=== PATIENT | male | born 1940 | race Caucasian/White ===

== ENCOUNTER → 2016-09-24 | Outpatient (CLI) | payer MEDICARE, OTHER ==
[~2016-09-24] MED LIST: ACET1CAP18 PO; ALLO100T PO; ATOR40TA16 PO; AZIT250T3 PO; CALTTAB PO; CEFT500T3 PO; CLOP75TA PO; DIGO0.127 PO; FLUT1INH INH; FURO1TAB60 PO; FURO40TA PO; GABA300C5 PO; GNP3TAB; IPRASOL INH; LOPE2CAP PO; METO10TA PO; METOPOW; MIRTA15 PO; MULT1CHW70; NOVOINJ3 SQ; OMEP20TA PO; POLYPOW5; POTA-163 PO; PRED10 PO; SKIN1CRE2; SPIRCAP INH; TAMS0.4C4 PO; ZINC20OI
--- NOTE | 2016-09-24 14:05 | RADRPT ---
EXAM DATE/TIME: 09/24/2016 00:00 [facility] COMPARISON: No previous studies available for comparison. INDICATIONS : Dysphagia FLUORO TIME: 1.3 minutes IMAGE COUNT: 0 CONTRAST: Dose as prescribed by speech pathologist. MEDICAL HISTORY : Stroke. Dysphagia SURGICAL HISTORY : None. ENCOUNTER: Subsequent ACUITY: 1 day PAIN SCORE: Non-responsive. LOCATION: Bilateral esophagus FINDINGS: A modified barium swallow was performed with speech pathology. Patient was given a variety of liquids to swallow. For a full detailed report, see report by the speech pathologist. CONCLUSION: Image guidance provided for modified barium swallow. Contreras Oliveros MD on September 24, 2016 at 13:39 Board Certified Radiologist. This report was verified electronically.
== END ==
LOC: HRAD 09:26
PROVIDERS: ATTEND Family Medicine
DX: R13.12 Dysphagia, oropharyngeal phase (principal)
CPT/HCPCS: 74230; 92611; G8996; G8997; G8998

== ENCOUNTER 2016-11-08 20:14 | Inpatient (IN) | payer MEDICARE, OTHER ==
[~2016-11-08] VITALS: Ht 182.9 cm; Wt 105.8 kg
[2016-11-08 20:25] VITALS: BP 141/65; PULSE 66; RESP 18; TEMP 98.5; O2SAT 94
[2016-11-08] MEDS ORDERED: methylPREDNISolone SOD SUCC 125 MG/2 ML VIAL IVP ONE (21:00)
[2016-11-08] MEDS ORDERED: SODIUM CHLORIDE 0.9% FLUSH 10 ML FLUSH IVF PRN (21:00)
--- NOTE | 2016-11-08 21:01 | PD ---
HPI Chief Complaint: Cold / Flu Symptoms Time Seen by Provider: 20:57 (Maria De Jesus Vaz) Time Seen by Provider: 20:44 (Janki Dunn MD) Travel History International Travel<30 days: No Contact w/Intl Traveler<30days: No Traveled to known affect area: No (Maria De Jesus Vaz) History of Present Illness HPI 76-year-old male presents to the emergency department from [facility] for evaluation of cold symptoms. The patient states he has had a symptoms for proximally one to 2 weeks. He reports increasing shortness of breath, wheezing , stuffy nose, congestion. He denies any chest pain. No abdominal pain. No nausea, vomiting, diarrhea. He denies fevers. Patient has a history of COPD, CHF, dysphagia, BPH, urosepsis, UTI, altered mental status, gout, hypertension, iron deficiency anemia, type 2 diabetes, chronic kidney disease, chronic atrial fibrillation. His primary care physician is Dr. Isac Lima. (Maria De Jesus Vaz) [facility] Past Medical History Cardiovascular Problems: Yes (Maria De Jesus Vaz) Social History Alcohol Use: No Tobacco Use: No Substance Use: No (Maria De Jesus Vaz) Allergies-Medications (Allergen,Severity, Reaction): Coded Allergies: No Known Allergies (Unverified , 11/08/16) Reported Meds & Prescriptions Reported Meds & Active Scripts Active Reported Zinc Oxide (Zinc Oxide (Topical)) 20 % Oin Tylenol (Acetaminophen) 325 Mg Cap 650 Mg PO Q6H PRN Tamsulosin (Tamsulosin HCl) 0.4 Mg Cap 0.4 Mg PO HS Spiriva Handihaler (Tiotropium Inh) 18 Mcg Cap 18 Mcg INH DAILY 1 capsule = 18 mcg Potassium Chloride ER (Potassium Chloride) 20 Meq Tab 20 Meq PO DAILY Polyethylene Glycol 3350 (Polyethylene Glycol 3350 (Bulk) 1 Pow Pow Omeprazole 20 Mg Tab 20 Mg PO DAILY Novolog Flexpen Inj (Insulin Aspart) 300 Unit/3 Ml Pen 1 Units SQ Multivitamin Adult (Multiple Vitamins W/ Minerals) 1 Chw Chw Mirtazapine 15 Mg Tab 15 Mg PO HS Metoclopramide (Metoclopramide HCl) 10 Mg Tab 10 Mg PO DAILY Metoclopramide HCl 1 Pow Pow Gnp Melatonin (Melatonin) 3 Mg Tab Loperamide (Loperamide HCl) 2 Mg Cap 2 Mg PO TID PRN One capsule after each loose stool. Not to exceed 8 capsules per day. Lasix (Furosemide) 40 Mg Tab 40 Mg PO BID Duoneb (Ipratropium-Albuterol Neb) 0.5-2.5 Mg/3 Ml Neb 1 Nebule INH Q4HR NEB Gabapentin 300 Mg Cap 300 Mg PO BID Eucerin (Skin Protectants, Misc.) 1 Cre Cre Digox (Digoxin) 0.125 Mg Tab 0.125 Mg PO DAILY Clopidogrel (Clopidogrel Bisulfate) 75 Mg Tab 75 Mg PO DAILY Caltrate 600+D (Calcium Carbonate-Cholecalciferol) 600-800 Mg-Unit Tab 1 Tab PO BID Breo Ellipta Inh (Fluticasone/Vilanterol) 100-25 Mcg/Act Inh 1 Puff INH DAILY Use daily at the same time. Atorvastatin (Atorvastatin Calcium) 40 Mg Tab 40 Mg PO HS Allopurinol 100 Mg Tab 100 Mg PO DAILY (Janki Dunn MD) Review of Systems Except as stated in HPI: all other systems reviewed are Neg (Maria De Jesus Vaz) Physical Exam Narrative GENERAL: Well-nourished, well-developed male patient, afebrile. SKIN: Focused skin assessment warm/dry. HEAD: Normocephalic. Atraumatic. EYES: No scleral icterus. No injection or drainage. NECK: Supple, trachea midline. No JVD or lymphadenopathy. CARDIOVASCULAR: Regular rate and rhythm without murmurs, gallops, or rubs. Bilateral radial and pedal pulses 2+. RESPIRATORY: Breath sounds equal bilaterally. No accessory muscle use. Lungs sounds diminished extra wheezes noted throughout. GASTROINTESTINAL: Abdomen soft, non-tender, nondistended. MUSCULOSKELETAL: No cyanosis, or edema. BACK: Nontender without obvious deformity. No CVA tenderness. r (Maria De Jesus Vaz) Data Data Last Documented VS Vital Signs Date Time Temp Pulse Resp B/P Pulse Ox O2 Delivery O2 Flow Rate FiO2 11/08/16 20:25 98.5 66 18 141/65 94 (Janki Dunn MD) Orders Complete Blood Count With Diff (11/08/16 20:55) Basic Metabolic Panel (Bmp) (11/08/16 20:55) B-Type Natriuretic Peptide (11/08/16 20:55) Act Partial Throm Time (Ptt) (11/08/16 20:55) Prothrombin Time / Inr (Pt) (11/08/16 20:55) Magnesium (Mg) (11/08/16 20:55) Ckmb (Isoenzyme) Profile (11/08/16 20:55) Troponin I (11/08/16 20:55) Urinalysis - C+S If Indicated (11/08/16 20:55) Blood Culture (11/08/16 20:55) Iv Access Insert/Monitor (11/08/16 20:55) Electrocardiogram (11/08/16 20:55) Ecg Monitoring (11/08/16 20:55) Oximetry (11/08/16 20:55) Oxygen Administration (11/08/16 20:55) Sodium Chloride 0.9% Flush (Ns Flush) (11/08/16 21:00) Methylprednisolone So Succ Inj (Solumedr (11/08/16 21:00) Albuterol-Ipratropium Neb (Duoneb Neb) (11/08/16 21:00) Lactic Acid Sepsis Protocol (11/08/16 20:55) Chest, Single Ap (11/08/16 ) Sodium Chlorid 0.9% 500 Ml Inj (Ns 500 M (11/08/16 22:15) Insulin Human Regular Inj (Novolin R Inj (11/08/16 22:15) Dextrose 50% In Sorin (Vial) Inj (D50w (Vi (11/08/16 22:15) Sodium Polysty Sulfate Liq (Kayexalate L (11/08/16 22:15) Calcium Gluconate Inj (Calcium Gluconate (11/08/16 22:15) Admit Order (Ed Use Only) (11/08/16 22:10) (Janki Dunn MD) Labs Laboratory Tests Test 11/08/16 11/08/16 21:00 22:00 White Blood Count 9.0 TH/MM3 Red Blood Count 3.07 MIL/MM3 Hemoglobin 8.6 GM/DL Hematocrit 27.0 % Mean Corpuscular Volume 87.9 FL Mean Corpuscular Hemoglobin 28.0 PG Mean Corpuscular Hemoglobin 31.8 % Concent Red Cell Distribution Width 16.0 % Platelet Count 256 TH/MM3 Mean Platelet Volume 6.3 FL Neutrophils (%) (Auto) 71.3 % Lymphocytes (%) (Auto) 12.1 % Monocytes (%) (Auto) 7.9 % Eosinophils (%) (Auto) 8.0 % Basophils (%) (Auto) 0.7 % Neutrophils # (Auto) 6.4 TH/MM3 Lymphocytes # (Auto) 1.1 TH/MM3 Monocytes # (Auto) 0.7 TH/MM3 Eosinophils # (Auto) 0.7 TH/MM3 Basophils # (Auto) 0.1 TH/MM3 CBC Comment DIFF FINAL Differential Comment Prothrombin Time 11.9 SEC Prothromb Time International 1.1 RATIO Ratio Activated Partial 32.4 SEC Thromboplast Time Sodium Level 140 MEQ/L Potassium Level 6.1 MEQ/L Chloride Level 108 MEQ/L Carbon Dioxide Level 27.2 MEQ/L Anion Gap 5 MEQ/L Blood Urea Nitrogen 71 MG/DL Creatinine 4.84 MG/DL Estimat Glomerular Filtration 12 ML/MIN Rate Random Glucose 78 MG/DL Lactic Acid Level 0.8 mmol/L Calcium Level 9.0 MG/DL Magnesium Level 2.2 MG/DL Total Creatine Kinase 69 U/L Troponin I 0.05 NG/ML B-Type Natriuretic Peptide 1023 PG/ML Urine Color LIGHT-YELLOW Urine Turbidity HAZY Urine pH 7.0 Urine Specific [place] 1.013 Urine Protein 100 mg/dL Urine Glucose (UA) NEG mg/dL Urine Ketones NEG mg/dL Urine Occult Blood TRACE Urine Nitrite NEG Urine Bilirubin NEG Urine Urobilinogen LESS THAN 2.0 MG/DL Urine Leukocyte Esterase LARGE Urine RBC 3 /hpf Urine WBC 88 /hpf Urine WBC Clumps FEW Urine Squamous Epithelial <1 /hpf Cells Urine Mucus FEW /lpf Microscopic Urinalysis Comment CULTURE INDICATED (Janki Dunn MD) [facility] Medical Decision Making Medical Screen Exam Complete: Yes Emergency Medical Condition: Yes 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 Reviewed: Yes Interpretation(s) chest x-ray - CONCLUSION: Prominence of the central vessels which may represent some pulmonary venous hypertension. Godwin edema or consolidation is not seen. Differential Diagnosis COPD exacerbation versus pneumonia versus CHF exacerbation versus sepsis versus UTI versus election abnormality versus dehydration Narrative Course 76-year-old male presents to the emergency department from nursing facility for evaluation of cold symptoms for one to 2 weeks. EKG, CBC, BMP, BNP, magnesium, CK, troponin, lactic acid are ordered and pending. UA is ordered and pending. Blood cultures 2 are ordered and pending. Chest x-ray is ordered and pending. Patient is given DuoNeb 3 and Solu-Medrol 125 mg IV. EKG shows sinus rhythm, heart rate 69, no acute ST changes. CBC shows hemoglobin 8.6, hematocrit 27.0. BMP shows hyperkalemia 6.1, BUN 71, creatinine 4.84. Magnesium is 2.2. CK is 69. Troponin is 0.05. BNP [-]. PT is 11.9, INR 1.1, PTT 32.4. UA is still pending. Chest x-ray shows prominence of the central vessels which may represent some pulmonary venous hypertension. Godwin edema or consolidation is not seen. I looked at the paperwork sent from the residential, the last creatinine I can find on here was on report for August 2016 showed BUN of 23, creatinine 1.73, potassium 4.6. Patient is given Kayexalate 15 g by mouth, regular insulin 10 units IV, amp of D50, ampicillin and bicarbonate, 1 g of calcium gluconate, normal saline 500 mL bolus. [facility] is paged for admission. Walter Lopez accepted admission. (Maria De Jesus Vaz) Diagnosis Primary Impression: Acute renal failure Qualified Code: N17.9 - Acute renal failure, unspecified acute renal failure type Additional Impressions: COPD exacerbation Hyperkalemia Admitting Information Admitting Physician Requests: Admit (Maria De Jesus Vaz) Maria De Jesus Vaz November 08, 2016 21:01 Janki Dunn MD November 09, 2016 00:25
[2016-11-08] MEDS: RESP: ALBUTEROL 2.5 MG/IPRATROPIUM 0.5 MG NEB (SCH) INH ×2 (21:30→21:31)
[2016-11-08 21:40] LABS: APTT (PATIENT) 32.4 SEC (24.3-30.1); INTERNATIONAL NORMALIZED RATIO 1.1 RATIO; PROTHROMBIN TIME - PATIENT 11.9 SEC (9.8-11.6)
[2016-11-08 21:41] LABS: BICARBONATE 27.2 MEQ/L (21.0-32.0); MAGNESIUM 2.2 MG/DL (1.5-2.5); POTASSIUM 6.1 MEQ/L (3.5-5.1)
[2016-11-08 21:54] LABS: AUTOMATED NEUTROPHIL # 6.4 TH/MM3 (1.8-7.7); BASOPHIL # 0.1 TH/MM3 (0-0.2); BASOPHIL % 0.7 % (0.0-2.0); EOSINOPHIL # 0.7 TH/MM3 (0-0.4); HEMO FLAGS DIFF FINAL; LYMPH % 12.1 % (9.0-44.0); LYMPHOCYTE # 1.1 TH/MM3 (1.0-4.8); MEAN CELL VOLUME 87.9 FL (80.0-100.0); MEAN CORPUSCULAR HGB CONC 31.8 % (32.0-36.0); MONO % 7.9 % (0.0-8.0); NEUT % 71.3 % (16.0-70.0); PLATELET COUNT 256 TH/MM3 (150-450); RED BLOOD COUNT 3.07 MIL/MM3 (4.50-5.90)
--- NOTE | 2016-11-08 22:00 | RADRPT ---
EXAM DATE/TIME: 11/08/2016 21:15 [facility] COMPARISON: No previous studies available for comparison. INDICATIONS : Short of breath. MEDICAL HISTORY : Stroke. SURGICAL HISTORY : None. 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 The heart size is normal. T here some prominence of the central vessels. A focal consolidation is not seen. No effusion is seen. CONCLUSION: Prominence of the central vessels which may represent some pulmonary venous hypertension. Godwin edema or consolidation is not seen. Walter White MD on November 08, 2016 at 21:57 Board Certified Radiologist. This report was verified electronically.
[2016-11-08] MEDS ORDERED: SODIUM POLYSTYRENE SULFONATE SUSP 15 GM/60 ML CUP PO ONE (22:15)
[2016-11-08] MEDS ORDERED: DEXTROSE 50% IN WATER 50 ML VIAL(D50) IV PUSH ONE (22:15)
[2016-11-08] MEDS ORDERED: SODIUM BICARBONATE 8.4% SOLN 50 MEQ/50 ML VIAL SLOW IVP ONE (22:15)
[2016-11-08] MEDS ORDERED: INSULIN HUMAN REGULAR 1,000 UNITS/10 ML VIAL IV PUSH ONE (22:15)
[2016-11-08] MEDS ORDERED: SODIUM CHLORID 0.9% 500 ML INJ 500 ML IV ONE (22:15)
[2016-11-08] MEDS ORDERED: CALCIUM GLUCONATE INJ 1 GM in SODIUM CHLORIDE 0.9% INJ 100 ML IV ONE (22:15)
[2016-11-08 22:34] LABS: BLOOD, URINE TRACE (NEG); COMMENT (UR) CULTURE INDICATED; CULTURE IF INDICATED CULTURE INDICATED; GLUCOSE,URINE NEG (NEG); KETONE, URINE NEG (NEG); MUCUS URINE FEW /lpf (OCC); NITRITE,URINE NEG (NEG); SQUAMOUS EPITHELIAL CELL URINE <1 /hpf (0-5); URINE COLOR LIGHT-YELLOW (YELLW/STRAW)
[2016-11-08 22:44] VITALS: O2SAT 94
[2016-11-08] MEDS ORDERED: SODIUM CHLORIDE 0.9% FLUSH 10 ML FLUSH IV FLUSH PRN (22:45)
[2016-11-08] MEDS ORDERED: NALOXONE HCL 0.4 MG/ML AMP IV PRN (22:45)
[2016-11-08] MEDS ORDERED: ONDANSETRON HCL 4 MG/2 ML VIAL IVP PRN (22:45)
[2016-11-08] MEDS ORDERED: ACETAMINOPHEN 325 MG TAB PO PRN (22:45)
[2016-11-08] MEDS ORDERED: RESP: ALBUTEROL 2.5 MG/3 ML NEB (PRN) INH (22:45)
[2016-11-08] MEDS ORDERED: SODIUM CHLOR 0.9% 1000 ML INJ 1,000 ML IV SCH (23:00)
[2016-11-08] MEDS ORDERED: SODIUM BICARBONATE 8.4% INJ 50 MEQ/50 ML SYR IV PUSH ONE (23:45)
[2016-11-08] MEDS ORDERED: MIRTA15 PO (23:57)
[2016-11-08] MEDS ORDERED: MULT1CHW70 (23:57)
[2016-11-08] MEDS ORDERED: CALTTAB PO (23:57)
[2016-11-08] MEDS ORDERED: CLOP75TA PO (23:57)
[2016-11-08] MEDS ORDERED: METO10TA PO (23:57)
[2016-11-08] MEDS ORDERED: OMEP20TA PO (23:57)
[2016-11-08] MEDS ORDERED: ACET1CAP18 PO (23:57)
[2016-11-08] MEDS ORDERED: IPRASOL INH (23:57)
[2016-11-08] MEDS ORDERED: DIGO0.127 PO (23:57)
[2016-11-08] MEDS ORDERED: LOPE2CAP PO (23:57)
[2016-11-08] MEDS ORDERED: METOPOW (23:57)
[2016-11-08] MEDS ORDERED: GABA300C5 PO (23:57)
[2016-11-08] MEDS ORDERED: SKIN1CRE2 (23:57)
[2016-11-08] MEDS ORDERED: SPIRCAP INH (23:57)
[2016-11-08] MEDS ORDERED: ALLO100T PO (23:57)
[2016-11-08] MEDS ORDERED: POTA-163 PO (23:57)
[2016-11-08] MEDS ORDERED: ZINC20OI (23:57)
[2016-11-08] MEDS ORDERED: POLYPOW5 (23:57)
[2016-11-08] MEDS ORDERED: FLUT1INH INH (23:57)
[2016-11-08] MEDS ORDERED: ATOR40TA16 PO (23:57)
[2016-11-08] MEDS ORDERED: NOVOINJ3 SQ (23:57)
[2016-11-08] MEDS ORDERED: FURO1TAB60 PO (23:57)
[2016-11-08] MEDS ORDERED: GNP3TAB (23:57)
[2016-11-08] MEDS ORDERED: TAMS0.4C4 PO (23:57)
[2016-11-09] VITALS (19 sets, daily range): BP systolic 74–185; BP diastolic 50–74; PULSE 59–103; RESP 15–26; TEMP 97.5–98.5; O2SAT 90–99
[2016-11-09 01:06] LABS: BICARBONATE 25.1 MEQ/L (21.0-32.0)
[2016-11-09] MEDS ORDERED: DEXTROSE 50% IN WATER 50 ML SYRINGE ONE (01:11)
[2016-11-09] MEDS: DEXT 5%-NACL 0.9% 1000 ML INJ 1,000 ML IV SCH ×2 (02:10→22:13)
[2016-11-09] MEDS: HEPARIN SODIUM - SQ 10,000 UNITS/ML VIAL SQ SCH ×3 (02:45→21:43)
[2016-11-09] MEDS: methylPREDNISolone SOD SUCC 125 MG/2 ML VIAL IVP SCH ×4 (02:49→21:43)
[2016-11-09] MEDS: RESP: ALBUTEROL 2.5 MG/IPRATROPIUM 0.5 MG NEB (SCH) INH ×4 (05:27→21:34)
[2016-11-09 06:49] LABS: BLOOD GAS CARBOXYHEMOGLOBIN 1.4 % (0-4); BLOOD GAS HCO3 24 mmol/L (22-26); BLOOD GAS METHEMOGLOBIN 0.8 % (0-2); BLOOD GAS O2 HGB SATURATION 91 % (90-100); BLOOD GAS OXYGEN CONTENT 10.5 Vol % (12.0-20.0); BLOOD GAS PCO2 53 mmHg (38-42); BLOOD GAS PO2 68 mmHg (61-120); BLOOD GAS TOTAL HGB 8.2 G/DL (12.0-16.0); TEMP CORR TO 98.6
[2016-11-09 06:53] LABS: CRITICAL VALUE YES; DRAW SITE RT RADIAL; LITER FLOW 2 L/M; NUMBER OF ARTERIAL PUNCTURES 1; OXYGEN DEVICE NASAL CANNULA; STAT YES; ULNAR PULSE PRESENT
--- NOTE | 2016-11-09 07:13 | RADRPT ---
EXAM DATE/TIME: 11/09/2016 06:48 [facility] COMPARISON: No previous studies available for comparison. INDICATIONS : Altered mental status. RADIATION DOSE: 56.35 CTDIvol (mGy) MEDICAL HISTORY : Hypertension. Diabetes mellitus type 2. SURGICAL HISTORY : None. ENCOUNTER: Initial ACUITY: 1 day PAIN SCALE: 0/10 LOCATION: cranial TECHNIQUE: Multiple contiguous axial images were obtained of the head. Using automated exposure control and adj ustment of the mA and/or kV according to patient size, radiation dose was kept as low as reasonably a chievable to obtain optimal diagnostic quality images. FINDINGS: CEREBRUM: The ventricles are normal for age. No evidence of midline shift, mass lesion, hemorrhage or acute in farction. No extra-axial fluid collections are seen. POSTERIOR FOSSA: The cerebellum and brainstem are intact. The 4th ventricle is midline. The cerebellopontine angle i s unremarkable. EXTRACRANIAL: The visualized portion of the orbits is intact. SKULL: The calvaria is intact. No evidence of skull fracture. CONCLUSION: 1. No acute findings. Mucosal thickening in the maxillary sinuses. Isidro Landeros MD on November 09, 2016 at 7:10 Board Certified Radiologist. This report was verified electronically.
[2016-11-09 08:34] LABS: AUTOMATED NEUTROPHIL # 6.3 TH/MM3 (1.8-7.7); BASOPHIL % 0.4 % (0.0-2.0); EOSINOPHIL % 0.2 % (0.0-4.0); HEMATOCRIT 26.8 % (39.0-51.0); HEMO FLAGS DIFF FINAL; LYMPH % 4.7 % (9.0-44.0); LYMPHOCYTE # 0.3 TH/MM3 (1.0-4.8); MEAN CELL VOLUME 87.7 FL (80.0-100.0); MEAN CORPUSCULAR HEMOGLOBIN 27.1 PG (27.0-34.0); MEAN CORPUSCULAR HGB CONC 30.9 % (32.0-36.0); MONO % 0.7 % (0.0-8.0); PLATELET COUNT 219 TH/MM3 (150-450); RED BLOOD COUNT 3.05 MIL/MM3 (4.50-5.90); RED CELL DISTRIBUTION WIDTH 16.1 % (11.6-17.2); WHITE BLOOD COUNT 6.7 TH/MM3 (4.0-11.0)
[2016-11-09 08:35] LABS: RETIC % 2.1 % (0.4-3.0); REVIEW FLAG FINAL
[2016-11-09] MEDS: cefTRIAXone 1,000 MG/NS 100 ML IV SCH ×2 (09:11)
[2016-11-09] MEDS: SODIUM CHLORIDE 0.9% FLUSH 10 ML FLUSH IV FLUSH SCH ×2 (09:12→21:00)
--- NOTE | 2016-11-09 09:12 | HHI.HP ---
[facility] No Primary Care Physician Admission Diagnosis ARF, COPD exacerbation Diagnoses: Chief Complaint: sob, sent from [place] (Lelia Jiménez) Travel History International Travel<30 Days: No Contact w/Intl Traveler <30 Da: No Traveled to Known Affected Are: No (Lelia Jiménez) History of Present Illness This is a 76-year-old elderly male male with significant past medical history of CAD, CHF, COPD, chronic kidney disease stage III, GI bleed, status post cardiac arrest in 2016, stent March 2016, diabetes, pacemaker. Patient was sent to the emergency room from local residential for evaluation of cold symptoms. Per review of emergency room records, patient had complained of approximately 2 weeks of shortness of breath, wheezing, stuffy nose and congestion. At this time, patient is short of breath and is difficult to obtain detailed information. Patient was last admitted to [facility] for sepsis secondary to UTI. Prior to that, patient had an extensive hospitalization at same facility where he had a cardiac arrest requiring intubation. He also went into acute renal injury and was evaluated by nephrology. Was also found with GI bleed and required upper endoscopies and colonoscopy with findings of polyps and rectal ulcers.Prior to that, he was admitted for chest pain and was found with the blockage to the RCA and underwent stent. Patient was evaluated in the emergency room, laboratory workup was completed. CBC was remarkable for hemoglobin of 8.6, hematocrit of 27 which appears to be his baseline. BMP was noted with worsening renal dysfunction, BUN 71, creatinine 4.84 and GFR of 12. He was noted hyperkalemic with potassium of 6.1. Urinalysis was positive for leukocyte esterase and bacteria. Chest x-ray shows prominence of central vessels which may represent some pulmonary venous hypertension, rk edema or consolidation was not seen. In the emergency room, patient received 500 cc fluid bolus. Hyperkalemia was treated with Kayexalate regular insulin D50 and bicarbonate. Empiric antibiotics were started. Overnight, blood glucose dropped to 37 and patient was put on dextrose solution. CT of the head completed was negative. ABGs were completed, pH 7.28 with PCO2 of 53. Patient is now examined, he's noted to With bibasilar Rales and expiratory wheezes. He's having difficulty completing sentences. I have called the respiratory therapist in order BiPAP placement and transfer to ICU. Lasix 20 mg IV push has been ordered. Patient knows is in the hospital he knows the year have discuss plan of care and spoke to him about the possibility of requiring intubation and he is agreeable. Nurse was at bedside to witness conversation. Per review of medical records, patient was living by himself prior to hospitalizations, he has no friends and is estranged from his family. States that he has not spoken to his children in 18 years and has no POA. I reviewed medical records from residential facility and there is no advanced directives. Patient is admitted for further evaluation and treatment. (Lelia Jiménez) Review of Systems ROS Limitations: Clinical Condition Respiratory: COMPLAINS OF: Cough, Wheezing, Sputum production Cardiovascular: COMPLAINS OF: Dyspnea on Exertion (Lelia Jiménez) Past Family Social History Past Medical History Coronary artery disease, stent to RCA 90 03/27/16 at [facility] [place] Recent cardiac arrest, sepsis, possible seizures, GI bleed, acute on chronic renal injury, hematuria\ Urosepsis, recurrent UTI GI bleed CK D stage III Gout Anemia COPD CHF Obesity Hypertension Hyperlipidemia Diabetes Past Surgical History Toe amputation Arthroscopy Cataract surgery Feeding tube insertion Esophageal surgery Cardiac catheter with stent to RCA 90 03/27/16 Cystoscopy 07/11/2016 Upper and lower endoscopy with findings of polyps and rectal ulcer Reported Medications Reported Meds & Active Scripts Active Reported Zinc Oxide (Zinc Oxide (Topical)) 20 % Oin Tylenol (Acetaminophen) 325 Mg Cap 650 Mg PO Q6H PRN Tamsulosin (Tamsulosin HCl) 0.4 Mg Cap 0.4 Mg PO HS Spiriva [place] (Tiotropium Inh) 18 Mcg Cap 18 Mcg INH DAILY 1 capsule = 18 mcg Potassium Chloride ER (Potassium Chloride) 20 Meq Tab 20 Meq PO DAILY Polyethylene Glycol 3350 (Polyethylene Glycol 3350 (Bulk) 1 Pow Pow Omeprazole 20 Mg Tab 20 Mg PO DAILY Novolog Flexpen Inj (Insulin Aspart) 300 Unit/3 Ml Pen 1 Units SQ Multivitamin Adult (Multiple Vitamins W/ Minerals) 1 Chw Chw Mirtazapine 15 Mg Tab 15 Mg PO HS Metoclopramide (Metoclopramide HCl) 10 Mg Tab 10 Mg PO DAILY Metoclopramide HCl 1 Pow Pow Gnp Melatonin (Melatonin) 3 Mg Tab Loperamide (Loperamide HCl) 2 Mg Cap 2 Mg PO TID PRN One capsule after each loose stool. Not to exceed 8 capsules per day. Lasix (Furosemide) 40 Mg Tab 40 Mg PO BID Duoneb (Ipratropium-Albuterol Neb) 0.5-2.5 Mg/3 Ml Neb 1 Nebule INH Q4HR NEB Gabapentin 300 Mg Cap 300 Mg PO BID Eucerin (Skin Protectants, Misc.) 1 Cre Cre Digox (Digoxin) 0.125 Mg Tab 0.125 Mg PO DAILY Clopidogrel (Clopidogrel Bisulfate) 75 Mg Tab 75 Mg PO DAILY Caltrate 600+D (Calcium Carbonate-Cholecalciferol) 600-800 Mg-Unit Tab 1 Tab PO BID Breo Ellipta Inh (Fluticasone/Vilanterol) 100-25 Mcg/Act Inh 1 Puff INH DAILY Use daily at the same time. Atorvastatin (Atorvastatin Calcium) 40 Mg Tab 40 Mg PO HS Allopurinol 100 Mg Tab 100 Mg PO DAILY (eLlia Jiménez) Allergies: Coded Allergies: Avelox (Verified Allergy, Unknown, 11/09/16) Flu Vaccine (Verified Allergy, Unknown, 11/09/16) Keflex (Verified Allergy, Unknown, 11/09/16) Levaquin (Verified Allergy, Unknown, 11/09/16) Active Ordered Medications Inpatient Medications Acetaminophen (Tylenol) 650 mg Q4H PRN PO TEMP > 100.4; Start 11/08/16 at 22:45 Albuterol Sulfate (Albuterol Neb) 2.5 mg Q2HR NEB PRN INH SHORTNESS OF BREATH; Start 11/08/16 at 22:45 Albuterol/ Ipratropium (Duoneb Neb) 1 ampule Q6HR NEB INH Last administered on 11/09/16 05:27; Start 11/09/16 at 04:00 Albuterol/ Ipratropium 1 ampule 1 ampule Q15M INH Last administered on 21:31; Start 11/08/16 at 21:00; Stop 11/08/16 at 21:31; Status DC Allopurinol (Zyloprim) 100 mg DAILY PO ; Start 11/10/16 at 09:00; Status UNV Calcium Gluconate 1 gm/Sodium Chloride 110 ml @ 110 mls/hr ONCE ONCE IV Last administered on 11/08/16 23:27; Start 11/08/16 at 22:15; Stop 11/08/16 at 23:14; Status DC Ceftriaxone Sodium/Sodium Chloride (Rocephin Inj/NS Inj) 100 ml @ 200 mls/hr Q24H IV Last administered on 11/09/16 09:11; Start 11/09/16 at 08:00 Clopidogrel Bisulfate (Plavix) 75 mg DAILY PO ; Start 11/10/16 at 09:00; Status UNV Dextrose (D50w (Vial) Inj) 50 ml ONCE ONCE IV PUSH Last administered on 23:24; Start 11/08/16 at 22:15; Stop 11/08/16 at 22:16; Status DC Dextrose/Sodium Chloride 1,000 ml @ 40 mls/hr Q24H IV Last administered on 11/09 02:10; Start 11/09/16 at 03:00 Fluticasone/ Vilanterol (Breo Ellipta 100-25 Inh) 1 puff DAILY INH ; Start at 09:45; Status UNV Furosemide (Lasix Inj) 20 mg ONCE ONCE IV PUSH Last administered on 11/09/16 09:29; Start 11/09/16 at 09:30; Stop 11/09/16 at 09:31; Status DC Heparin Sodium (Porcine) (Heparin Inj) 5,000 units Q12H SQ Last administered on 11/09/16 02:45; Start 11/08/16 at 23:00 Insulin Human Regular (NovoLIN R INJ) 10 units ONCE ONCE IV PUSH Last administered on 11/08/16 23:29; Start 11/08/16 at 22:15; Stop 11/08/16 at 22:16; Status DC Methylprednisolone Sodium Succinate (SoluMEDROL INJ) 60 mg Q6H IVP Last administered on 11/09/16 09:12; Start 11/09/16 at 04:00 Mirtazapine (Remeron) 15 mg HS PO ; Start 11/09/16 at 21:00; Status UNV Naloxone HCl (Narcan Inj) 0.4 mg UNSCH PRN IV SEE LABEL COMMENTS; Start at 22:45 Non-Formulary Medication 20 mg DAILY PO ; Start 11/10/16 at 09:00; Status UNV Ondansetron HCl (Zofran Inj) 4 mg Q6H PRN IVP NAUSEA OR VOMITING; Start at 22:45 Sodium Bicarbonate 50 meq 50 meq ONCE ONCE IV PUSH Last administered on 00:04; Start 11/08/16 at 23:45; Stop 11/08/16 at 23:49; Status DC Sodium Polystyrene Sulfonate 15 gm 15 gm ONCE ONCE PO ; Start 11/08/16 at 22:15 ; Stop 11/08/16 at 22:16; Status DC Sodium Chloride (NS 1000 ml Inj) 1,000 ml @ 100 mls/hr Q10H IV Last administered on 11/09/16 00:10; Start 11/08/16 at 23:00; Stop 11/09/16 at 02:21; Status DC Sodium Chloride (NS 500 ml Inj) 500 ml @ 500 mls/hr BOLUS ONCE IV Last administered on 11/08/16 23:31; Start 11/08/16 at 22:15; Stop 11/08/16 at 23:14; Status DC Sodium Chloride (NS Flush) 2 ml BID IV FLUSH Last administered on 11/09/16 09: 12; Start 11/09/16 at 09:00 Tamsulosin HCl (Flomax) 0.4 mg HS PO ; Start 11/09/16 at 21:00; Status UNV Tiotropium [place] (Spiriva Inh) 18 mcg DAILY INH ; Start 11/10/16 at 09:00; Status UNV Family History Per medical records,father from CVA. Mother with hx of DM Social History Patient is , was living alone. Has 3 grown children, has no contact with them. Quit smoking many years ago, no alcohol abuse, no substance abuse. ( Lelia Jiménez) Physical Exam Vital Signs Vital Signs Date Time Temp Pulse Resp B/P Pulse Ox O2 Delivery O2 Flow Rate FiO2 11/09/16 08:00 97.5 74 18 122/57 93 11/09/16 05:27 93 Nasal Cannula 2.00 11/09/16 04:52 97.7 86 20 160/70 93 11/09/16 02:12 68 20 148/63 95 11/09/16 01:21 82 11/09/16 01:20 103 142/65 11/09/16 01:00 98.3 75 20 165/72 96 11/09/16 00:52 95 Nasal Cannula 2 11/09/16 00:45 78 22 148/65 90 Room Air 11/08/16 22:44 94 11/08/16 20:25 98.5 66 18 141/65 94 Physical Exam GENERAL: This is a male, appears in SKIN: Skin is cool and dry, scratches are noted to lower extremities. HEAD: Atraumatic. Normocephalic. No temporal or scalp tenderness. EYES: Pupils equal round and reactive. Extraocular motions intact. No scleral icterus. No injection or drainage. ENT: Nose without bleeding, purulent drainage or septal hematoma. Throat without erythema, tonsillar hypertrophy or exudate. Uvula midline. Airway patent. NECK: Trachea midline. No JVD or lymphadenopathy. Supple, nontender, no meningeal signs. CARDIOVASCULAR: S1 and S2, muffled heart sounds, soft murmur noted. RESPIRATORY: Bibasilar Rales with expiratory wheezes. GASTROINTESTINAL: Abdomen soft, non-tender, nondistended. Scar from previous abdominal surgery and PEG tube insertion. No hepato-splenomegaly, or palpable masses. No guarding. MUSCULOSKELETAL: Extremities without clubbing, cyanosis, or edema. Pedal pulses +1 bilaterally. No joint tenderness, effusion, or edema noted. No calf tenderness. Negative Homans sign bilaterally. NEUROLOGICAL: Awake, oriented to self, knows he is in a hospital, able to provide year, name, and date of . Following simple commands. No focal deficits. Patient is edentulous, at times difficult to understand but otherwise he is appropriate. Laboratory Laboratory Tests Test 11/08/16 11/08/16 11/09/16 11/09/16 21:00 22:00 00:35 06:43 White Blood Count 9.0 Red Blood Count 3.07 Hemoglobin 8.6 Hematocrit 27.0 Mean Corpuscular Volume 87.9 Mean Corpuscular Hemoglobin 28.0 Mean Corpuscular Hemoglobin 31.8 Concent Red Cell Distribution Width 16.0 Platelet Count 256 Mean Platelet Volume 6.3 Neutrophils (%) (Auto) 71.3 Lymphocytes (%) (Auto) 12.1 Monocytes (%) (Auto) 7.9 Eosinophils (%) (Auto) 8.0 Basophils (%) (Auto) 0.7 Neutrophils # (Auto) 6.4 Lymphocytes # (Auto) 1.1 Monocytes # (Auto) 0.7 Eosinophils # (Auto) 0.7 Basophils # (Auto) 0.1 CBC Comment DIFF FINAL Differential Comment Prothrombin Time 11.9 Prothromb Time International 1.1 Ratio Activated Partial 32.4 Thromboplast Time Sodium Level 140 145 Potassium Level 6.1 5.0 Chloride Level 108 112 Carbon Dioxide Level 27.2 25.1 Anion Gap 5 8 Blood Urea Nitrogen 71 66 Creatinine 4.84 4.32 Estimat Glomerular Filtration 12 13 Rate Random Glucose 78 37 Lactic Acid Level 0.8 Calcium Level 9.0 8.6 Magnesium Level 2.2 Total Creatine Kinase 69 Troponin I 0.05 B-Type Natriuretic Peptide 1023 Urine Color LIGHT-YELLOW Urine Turbidity HAZY Urine pH 7.0 Urine Specific [place] 1.013 Urine Protein 100 Urine Glucose (UA) NEG Urine Ketones NEG Urine Occult Blood TRACE Urine Nitrite NEG Urine Bilirubin NEG Urine Urobilinogen LESS THAN 2.0 Urine Leukocyte Esterase LARGE Urine RBC 3 Urine WBC 88 Urine WBC Clumps FEW Urine Squamous Epithelial <1 Cells Urine Mucus FEW Microscopic Urinalysis Comment CULTURE INDICATED Blood Gas Puncture Site RT RADIAL Blood Gas Patient Temperature 98.6 Blood Gas HCO3 24 Blood Gas Base Excess -2.0 Blood Gas Oxygen Saturation 91 Arterial Blood pH 7.28 Arterial Blood Partial 53 Pressure CO2 Arterial Blood Partial 68 Pressure O2 Arterial Blood Oxygen Content 10.5 Arterial Blood 1.4 Carboxyhemoglobin Arterial Blood Methemoglobin 0.8 Blood Gas Hemoglobin 8.2 Oxygen Delivery Device NASAL CANNULA Blood Gas Liter Flow 2 Test 11/09/16 11/09/16 07:40 07:51 Reticulocyte Count 2.1 Absolute Reticulocyte Count 63.4 White Blood Count 6.7 Red Blood Count 3.05 Hemoglobin 8.3 Hematocrit 26.8 Mean Corpuscular Volume 87.7 Mean Corpuscular Hemoglobin 27.1 Mean Corpuscular Hemoglobin 30.9 Concent Red Cell Distribution Width 16.1 Platelet Count 219 Mean Platelet Volume 6.2 Neutrophils (%) (Auto) 94.0 Lymphocytes (%) (Auto) 4.7 Monocytes (%) (Auto) 0.7 Eosinophils (%) (Auto) 0.2 Basophils (%) (Auto) 0.4 Neutrophils # (Auto) 6.3 Lymphocytes # (Auto) 0.3 Monocytes # (Auto) 0.0 Eosinophils # (Auto) 0.0 Basophils # (Auto) 0.0 CBC Comment DIFF FINAL Differential Comment Ammonia 24 Date/Time Procedure Status Source Growth 11/08/16 22:00 Urine Culture Received Urine Clean Catch Pending 11/08/16 21:05 Aerobic Blood Culture Received Blood Peripheral Pending 11/08/16 21:05 Anaerobic Blood Culture Received Blood Peripheral Pending (Lelia Jiménez) Result Diagram: 11/09/16 0751 11/09/16 0035 Imaging Last Impressions Head CT 11/09/16 0000 Signed Impressions: Service Date/Time: Wednesday, November 09, 2016 06:48 - CONCLUSION: 1. No acute findings. Mucosal thickening in the maxillary sinuses. Isidro Landeros MD Chest X-Ray 11/08/16 0000 Signed Impressions: Service Date/Time: November 21:15 - CONCLUSION: Prominence of the central vessels which may represent some pulmonary venous hypertension. Rk edema or consolidation is not seen. 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 Barba 76-year-old male with multiple comorbidities including CAD, recent stent March 2016, chronic kidney disease, COPD, CHF, recurrent UTI. Presented to the emergency room with complaint of shortness of breath. Patient found hypoxic , likely combination of COPD exacerbation, CHF and also worsening renal function. Respiratory failure, hypoxic, hypercarbic COPD exacerbation -Transfer patient to ICU Consult pulmonology for evaluation We'll order BiPAP, 5/10 with 40% FiO2 Continue IV Solu-Medrol 60 mg IV every 6 Continue with DuoNeb's Acute congestive heart failure, last echocardiogram March 2016, EF 55-60%. During assessment, patient noted with murmur, possibly new Lasix 20 mg IV push 1 At this time hold off on schedule Lasix due to renal dysfunction 2-D echo has been ordered -We will have nursing insert Yang catheter and monitor intake and output closely Acute on chronic kidney disease, noted worsening renal function and hyperkalemia. Consult nephrology for evaluation Avoid nephrotoxic agents, hold diuretics at this time -Yang catheter for strict intake and output Recurrent UTI, prior admissions with urosepsis Continue with Rocephin, monitor cultures Altered mental status, likely multifactorial, found hypercarbic, hypoxic, possibly metabolic CT of the head completed negative Neurology has been consulted, uro-workup in progress EEG has been ordered Coronary artery disease, status post stent to RCA March 2016 Prior history of ablation Cardiac arrest 2016 Pacemaker insertion 2015 Continue with Plavix Patient not on any beta blockers, will hold off for now due to wheezing Anemia, history of GI bleed with GI workup, possibly secondary to chronic kidney disease. Patient appears to be at baseline Monitor H&H No active bleeding noted Type 2 diabetes, recent episode of hypoglycemia Continue with Accu-Cheks every 4 Patient was put on dextrose solution, we'll hold off at this time as patient is noted and fluid overload. Blood sugars are now trending upwards to 150. Hypertension Continue home medications Hyperlipidemia Continue home medications Home medications reviewed, some have been initiated SCDs and heparin for DVT prophylaxis PPI for GI prophylaxis Patient's condition guarded. At this time he requires transfer to intensive care unit for closer monitoring, BiPAP, if no improvement may require intubation. Advanced directives and end-of-life care issues have been discussed with the patient. At this time he requests full code. Patient has no family members and limited social support. Patient will benefit from palliative care consultation to assist with defining goals, identifying POA if possible. Plan care has been discussed with the patient, attending and registered nurse. Further management of the patient will be dependent on the hospital course Patient requires inpatient admission for anticipated stay greater than 2 days for respiratory failure, recurrent UTI, CHF, COPD exacerbation, acute on chronic renal injury. Patient is at risk for complications due to advanced age and multiple comorbidities that can potentially lead to multiorgan failure, possibly . Patient requires admission for IV antibiotics, evaluation by consultants, BiPAP, possible intubation. Anticipated discharge back to residential facility when stable This patient was seen by myself and Dr. Barba, this H&P is written on his behalf (Lelia Jiménez) Assessment and Plan pt is seen & examined d/w Lelia mcelroy w above see orders will f/u (Molly Barba MD) Physician Certification 2 Midnight Certification Type: Admission for Inpatient Services Order for Inpatient Services The services are ordered in accordance with Medicare regulations or non- Medicare payer requirements, as applicable. In the case of services not specified as inpatient-only, they are appropriately provided as inpatient services in accordance with the 2-midnight benchmark. Estimated LOS (days): 2 2 days is the estimated time the patient will need to remain in the hospital, assuming treatment plan goals are met and no additional complications. Post-Hospital Plan: SNF (Lelia Jiménez) Problem Qualifiers (1) Respiratory failure: Qualified Code: J96.02 - Acute respiratory failure with hypercapnia (2) CHF (congestive heart failure): Qualified Code: I50.9 - Acute on chronic congestive heart failure, unspecified congestive heart failure type (3) Anemia: Qualified Code: D64.9 - Anemia, unspecified type (4) Hyperlipidemia: Qualified Code: E78.5 - Hyperlipidemia, unspecified hyperlipidemia type (5) CAD (coronary artery disease): Qualified Code: I25.118 - Coronary artery disease involving [place] coronary artery of [place] heart with other form of angina pectoris (6) Obesity: (7) HTN (hypertension): Qualified Code: I10 - Essential hypertension (8) Altered mental status: Qualified Code: R40.4 - Transient alteration of awareness Lelia Jiménez November 09, 2016 09:12 Molly Barba MD November 09, 2016 16:29
[2016-11-09 09:14] LABS: ANION GAP 7 MEQ/L (5-15); BICARBONATE 25.4 MEQ/L (21.0-32.0); BLOOD UREA NITROGEN 66 MG/DL (7-18); CHLORIDE 111 MEQ/L (98-107); FERRITIN 96 NG/ML (26-388); GLOMERULAR FILTRATION RATE 13 ML/MIN (>89); POTASSIUM 6.1 MEQ/L (3.5-5.1); SODIUM (NA) 143 MEQ/L (136-145); TRANSFERRIN IRON PROFILE 182 MG/DL (200-360)
[2016-11-09] MEDS ORDERED: FUROSEMIDE 20 MG/2 ML VIAL IV PUSH ONE (09:30)
[2016-11-09 11:51] LABS: FREE T4 0.92 NG/DL (0.76-1.46)
[2016-11-09] MEDS ORDERED: CALCIUM GLUCONATE 10% 1 GM/10 ML VIAL IV PUSH ONE (13:00)
[2016-11-09] MEDS ORDERED: DEXTROSE 50% IN WATER 50 ML SYRINGE IV ONE (13:00)
[2016-11-09] MEDS: FLUTICASONE 100 MCG/VILANTEROL 25 MCG INHALER INH SCH (13:22)
--- NOTE | 2016-11-09 13:23 | PD.CONS ---
HPI Service Nephrology Consult Requested By Doctor Barba Reason for Consult Acute renal failure and chronic kidney disease Primary Care Physician No Primary Care Physician History of Present Illness This is a 76-year-old elderly male male with significant past medical history of CAD, CHF, COPD, chronic kidney disease stage III, GI bleed, status post cardiac arrest in 2017, stent , he had the renal dysfunction by improved and he was discharged to alf subsequently he is not doing too well and came in with shortness of breath he's on BiPAP and he is passing urine. Elevated creatinine around 4.3 looking back at the records from [facility] had some renal dysfunction creatinine ranged 1.7-3 Review of Systems ROS Limitations: Clinical Condition Constitutional: COMPLAINS OF: Fatigue Respiratory: COMPLAINS OF: Shortness of breath Past Family Social History Allergies: Coded Allergies: Avelox (Verified Allergy, Unknown, 11/09/16) Flu Vaccine (Verified Allergy, Unknown, 11/09/16) Keflex (Verified Allergy, Unknown, 11/09/16) Levaquin (Verified Allergy, Unknown, 11/09/16) Past Medical History Diabetes Chronic kidney disease Coronary artery disease Stent Cardiac arrest Atrial fibrillation COPD Dementia Obstructive uropathy UTI Esophageal dysphagia Osteoarthritis Past Surgical History Orthopedic surgeries left knee and ankle Hernia repair Esophageal Stent in heart Cholecystectomy Reported Medications Reported Meds & Active Scripts Active Reported Zinc Oxide (Zinc Oxide (Topical)) 20 % Oin Tylenol (Acetaminophen) 325 Mg Cap 650 Mg PO Q6H PRN Tamsulosin (Tamsulosin HCl) 0.4 Mg Cap 0.4 Mg PO HS Spiriva Handihaler (Tiotropium Inh) 18 Mcg Cap 18 Mcg INH DAILY 1 capsule = 18 mcg Potassium Chloride ER (Potassium Chloride) 20 Meq Tab 20 Meq PO DAILY Polyethylene Glycol 3350 (Polyethylene Glycol 3350 (Bulk) 1 Pow Pow Omeprazole 20 Mg Tab 20 Mg PO DAILY Novolog Flexpen Inj (Insulin Aspart) 300 Unit/3 Ml Pen 1 Units SQ Multivitamin Adult (Multiple Vitamins W/ Minerals) 1 Chw Chw Mirtazapine 15 Mg Tab 15 Mg PO HS Metoclopramide (Metoclopramide HCl) 10 Mg Tab 10 Mg PO DAILY Metoclopramide HCl 1 Pow Pow Gnp Melatonin (Melatonin) 3 Mg Tab Loperamide (Loperamide HCl) 2 Mg Cap 2 Mg PO TID PRN One capsule after each loose stool. Not to exceed 8 capsules per day. Lasix (Furosemide) 40 Mg Tab 40 Mg PO BID Duoneb (Ipratropium-Albuterol Neb) 0.5-2.5 Mg/3 Ml Neb 1 Nebule INH Q4HR NEB Gabapentin 300 Mg Cap 300 Mg PO BID Eucerin (Skin Protectants, Misc.) 1 Cre Cre Digox (Digoxin) 0.125 Mg Tab 0.125 Mg PO DAILY Clopidogrel (Clopidogrel Bisulfate) 75 Mg Tab 75 Mg PO DAILY Caltrate 600+D (Calcium Carbonate-Cholecalciferol) 600-800 Mg-Unit Tab 1 Tab PO BID Breo Ellipta Inh (Fluticasone/Vilanterol) 100-25 Mcg/Act Inh 1 Puff INH DAILY Use daily at the same time. Atorvastatin (Atorvastatin Calcium) 40 Mg Tab 40 Mg PO HS Allopurinol 100 Mg Tab 100 Mg PO DAILY Active Ordered Medications Current Medications Medications (Trade) Dose Ordered Sig/Shantelle Route Start Time Stop Time Status Last Admin (NS Flush) 2 ml UNSCH PRN IV FLUSH 11/08/16 22:45 (NS Flush) 2 ml BID IV FLUSH 11/09/16 09:00 11/09/16 09:12 (Tylenol) 650 mg Q4H PRN PO 11/08/16 22:45 (Zofran Inj) 4 mg Q6H PRN IVP 11/08/16 22:45 (Heparin Inj) 5,000 units Q12H SQ 11/08/16 23:00 11/09/16 02:45 (Narcan Inj) 0.4 mg UNSCH PRN IV 11/08/16 22:45 Methylprednisolone Sodium Succinate 60 mg 60 mg Q6H IVP 11/09/16 04:00 11/09/16 09:12 Dextrose/Sodium Chloride 1,000 ml @ 40 mls/hr Q24H IV 11/09/16 03:00 11/09/16 02:10 (Rocephin Inj/NS Inj) 100 ml @ 200 mls/hr Q24H IV 11/09/16 08:00 11/09/16 09:11 (Zyloprim) 100 mg DAILY PO 11/10/16 09:00 (Plavix) 75 mg DAILY PO 11/10/16 09:00 (Breo Ellipta 100-25 Inh) 1 puff DAILY INH 11/09/16 11:00 (Remeron) 15 mg HS PO 11/09/16 21:00 (Flomax) 0.4 mg HS PO 11/09/16 21:00 (Spiriva Inh) 18 mcg DAILY INH 11/10/16 09:00 (Protonix) 20 mg DAILY PO 11/10/16 09:00 Family History Noncontributory Social History Presently in alf Physical Exam Vital Signs Vital Signs Date Time Temp Pulse Resp B/P Pulse Ox O2 Delivery O2 Flow Rate FiO2 11/09/16 12:19 99 25 11/09/16 12:00 98.4 81 26 185/72 95 11/09/16 10:23 98.3 69 18 179/74 95 11/09/16 09:55 94 Nasal Cannula 2.00 11/09/16 08:00 97.5 74 18 122/57 93 11/09/16 05:27 93 Nasal Cannula 2.00 11/09/16 04:52 97.7 86 20 160/70 93 11/09/16 02:12 68 20 148/63 95 11/09/16 01:21 82 11/09/16 01:20 103 142/65 11/09/16 01:00 98.3 75 20 165/72 96 11/09/16 00:52 95 Nasal Cannula 2 11/09/16 00:45 78 22 148/65 90 Room Air 11/08/16 22:44 94 11/08/16 20:25 98.5 66 18 141/65 94 Physical Exam GENERAL: Well-nourished, well-developed patient. SKIN: Warm and dry. HEAD: Normocephalic. EYES: No scleral icterus. No injection or drainage. NECK: Supple, trachea midline. No JVD or lymphadenopathy. CARDIOVASCULAR: Regular rate and rhythm without murmurs, gallops, or rubs. RESPIRATORY: Breath sounds diminished at bases GASTROINTESTINAL: Abdomen soft, non-tender, nondistended. EXTREMITIES: No cyanosis, mild edema. NEUROLOGICAL: Awake, lethargic Laboratory Laboratory Tests Test 11/08/16 11/08/16 11/09/16 11/09/16 21:00 22:00 00:35 06:43 White Blood Count 9.0 Red Blood Count 3.07 Hemoglobin 8.6 Hematocrit 27.0 Mean Corpuscular Volume 87.9 Mean Corpuscular Hemoglobin 28.0 Mean Corpuscular Hemoglobin 31.8 Concent Red Cell Distribution Width 16.0 Platelet Count 256 Mean Platelet Volume 6.3 Neutrophils (%) (Auto) 71.3 Lymphocytes (%) (Auto) 12.1 Monocytes (%) (Auto) 7.9 Eosinophils (%) (Auto) 8.0 Basophils (%) (Auto) 0.7 Neutrophils # (Auto) 6.4 Lymphocytes # (Auto) 1.1 Monocytes # (Auto) 0.7 Eosinophils # (Auto) 0.7 Basophils # (Auto) 0.1 CBC Comment DIFF FINAL Differential Comment Prothrombin Time 11.9 Prothromb Time International 1.1 Ratio Activated Partial 32.4 Thromboplast Time Sodium Level 140 145 Potassium Level 6.1 5.0 Chloride Level 108 112 Carbon Dioxide Level 27.2 25.1 Anion Gap 5 8 Blood Urea Nitrogen 71 66 Creatinine 4.84 4.32 Estimat Glomerular Filtration 12 13 Rate Random Glucose 78 37 Lactic Acid Level 0.8 Calcium Level 9.0 8.6 Magnesium Level 2.2 Total Creatine Kinase 69 Troponin I 0.05 B-Type Natriuretic Peptide 1023 Urine Color LIGHT-YELLOW Urine Turbidity HAZY Urine pH 7.0 Urine Specific Clark 1.013 Urine Protein 100 Urine Glucose (UA) NEG Urine Ketones NEG Urine Occult Blood TRACE Urine Nitrite NEG Urine Bilirubin NEG Urine Urobilinogen LESS THAN 2.0 Urine Leukocyte Esterase LARGE Urine RBC 3 Urine WBC 88 Urine WBC Clumps FEW Urine Squamous Epithelial <1 Cells Urine Mucus FEW Microscopic Urinalysis Comment CULTURE INDICATED Blood Gas Puncture Site RT RADIAL Blood Gas Patient Temperature 98.6 Blood Gas HCO3 24 Blood Gas Base Excess -2.0 Blood Gas Oxygen Saturation 91 Arterial Blood pH 7.28 Arterial Blood Partial 53 Pressure CO2 Arterial Blood Partial 68 Pressure O2 Arterial Blood Oxygen Content 10.5 Arterial Blood 1.4 Carboxyhemoglobin Arterial Blood Methemoglobin 0.8 Blood Gas Hemoglobin 8.2 Oxygen Delivery Device NASAL CANNULA Blood Gas Liter Flow 2 Test 11/09/16 11/09/16 07:40 07:51 Reticulocyte Count 2.1 Absolute Reticulocyte Count 63.4 White Blood Count 6.7 Red Blood Count 3.05 Hemoglobin 8.3 Hematocrit 26.8 Mean Corpuscular Volume 87.7 Mean Corpuscular Hemoglobin 27.1 Mean Corpuscular Hemoglobin 30.9 Concent Red Cell Distribution Width 16.1 Platelet Count 219 Mean Platelet Volume 6.2 Neutrophils (%) (Auto) 94.0 Lymphocytes (%) (Auto) 4.7 Monocytes (%) (Auto) 0.7 Eosinophils (%) (Auto) 0.2 Basophils (%) (Auto) 0.4 Neutrophils # (Auto) 6.3 Lymphocytes # (Auto) 0.3 Monocytes # (Auto) 0.0 Eosinophils # (Auto) 0.0 Basophils # (Auto) 0.0 CBC Comment DIFF FINAL Differential Comment Erythrocyte Sedimentation Rate 102 Sodium Level 143 Potassium Level 6.1 Chloride Level 111 Carbon Dioxide Level 25.4 Anion Gap 7 Blood Urea Nitrogen 66 Creatinine 4.38 Estimat Glomerular Filtration 13 Rate Random Glucose 154 Calcium Level 9.0 Phosphorus Level 4.8 Iron Level 32 Total Iron Binding Capacity 255 Percent Iron Saturation 12.6 Ferritin 96 Ammonia 24 Vitamin B12 Level 444 Folate 5.7 Free Thyroxine 0.92 Thyroid Stimulating Hormone 2.600 3rd Gen Date/Time Procedure Status Source Growth 11/08/16 22:00 Urine Culture Received Urine Clean Catch Pending 11/08/16 21:05 Aerobic Blood Culture - Preliminary Resulted Blood Peripheral NO GROWTH IN 1 DAY 11/08/16 21:05 Anaerobic Blood Culture - Preliminary Resulted Blood Peripheral NO GROWTH IN 1 DAY Result Diagram: 11/09/16 0751 11/09/16 0751 Imaging Last Impressions Head CT 11/09/16 0000 Signed Impressions: Service Date/Time: Wednesday, November 09, 2016 06:48 - CONCLUSION: 1. No acute findings. Mucosal thickening in the maxillary sinuses. Isidro Landeros MD Chest X-Ray 11/08/16 0000 Signed Impressions: Service Date/Time: November 21:15 - CONCLUSION: Prominence of the central vessels which may represent some pulmonary venous hypertension. Godwin edema or consolidation is not seen. Walter White MD Assessment and Plan Problem List: (1) Acute renal failure Plan: Patient is nonoliguric and has urine output the Yang catheter is in place these treated for UTI on ceftriaxone Patient creatinine remains elevated. Potassium is again 6.1 plan avoid nephrotoxins Ultrasound of the kidney has been ordered Follow BMP Avoid nephrotoxins and dye studies (2) Hyperkalemia Plan: Patient is treated again hyperkalemic and will repeat the calcium gluconate, D50 insulin and Kayexalate follow potassium (3) CAD (coronary artery disease) Plan: History of cardiac arrest and stents (4) CHF (congestive heart failure) Plan: Patient is on BiPAP (5) Altered mental status Plan: Remains lethargic (6) Recurrent UTI Plan: On ceftriaxone (7) COPD exacerbation Plan: On BiPAP and breathing treatment Problem Qualifiers (1) Acute renal failure: Qualified Code: N17.9 - Acute renal failure, unspecified acute renal failure type (2) CAD (coronary artery disease): Qualified Code: I25.118 - Coronary artery disease involving [place] coronary artery of [place] heart with other form of angina pectoris (3) CHF (congestive heart failure): Qualified Code: I50.9 - Acute on chronic congestive heart failure, unspecified congestive heart failure type (4) Altered mental status: Qualified Code: R40.4 - Transient alteration of awareness Taylor Gold MD November 09, 2016 13:23
[2016-11-09] MEDS ORDERED: INSULIN HUMAN REGULAR 1,000 UNITS/10 ML VIAL IV PUSH ONE (13:30)
[2016-11-09] MEDS ORDERED: SODIUM POLYSTYRENE SULFONATE SUSP 15 GM/60 ML CUP PO ONE (13:30)
[2016-11-09] MEDS ORDERED: CALCIUM GLUCONATE INJ 1 GM in SODIUM CHLORIDE 0.9% INJ 100 ML IV ONE (14:00)
--- NOTE | 2016-11-09 14:47 | EC ---
Study Study Date:11/09/2016 STUDY CONCLUSIONS SUMMARY - Left ventricle: The cavity size was normal. Wall thickness was normal. Systolic function was normal. The estimated ejection fraction was in the range of 55% to 60%. Although no diagnostic regional wall motion abnormality was identified, this possibility cannot be completely excluded on the basis of this study. - Aortic valve: There was mild stenosis. If LV function is below 40, please consider prescribing an ACEI or ARB or document rationale for non-use. PROCEDURE DATA STUDY STATUS: Elective. Procedure: Transthoracic echocardiography. Image quality was good. Scanning was performed from the parasternal, apical, and subcostal acoustic windows. Study completion: The patient tolerated the procedure well. Transthoracic echocardiography. M-mode, complete 2D, complete spectral Doppler, and color Doppler. Patient status: Inpatient. CARDIAC ANATOMY LEFT VENTRICLE: The cavity size was normal. Wall thickness was normal. Systolic function was normal. The estimated ejection fraction was in the range of 55% to 60%. Although no diagnostic regional wall motion abnormality was identified, this possibility cannot be completely excluded on the basis of this study. AORTIC VALVE: Not well visualized. Doppler: There was mild stenosis. No significant regurgitation. Mean gradient: 21mm Hg (S). Peak gradient: 47mm Hg (S). MITRAL VALVE: Mildly calcified annulus. Doppler: There was no evidence for stenosis. Trace regurgitation. Peak gradient: 4mm Hg (D). LEFT ATRIUM: The atrium was mildly dilated. RIGHT VENTRICLE: The cavity size was normal. PULMONIC VALVE: Not visualized. TRICUSPID VALVE: The valve appears to be grossly normal. Doppler: There was no evidence for stenosis. Trace regurgitation. PERICARDIUM: There was no pericardial effusion. BASIC MEASUREMENTS ADULT NORMAL Left ventricle LV internal dimension, ED, chordal level, 51.7 mm 43-52 PLAX LV internal dimension, ES, chordal level, *40 mm 23-38 PLAX Fractional shortening, chordal level, PLAX *23 % >29 LV posterior wall thickness, ED 7.63 mm IVS/LVPW ratio, ED 1.22 <1.3 Ventricular septum Septal thickness, ED 9.28 mm Left atrium Anterior-posterior dimension 42 mm Right ventricle RV internal dimension, ED, PLAX 22 mm 19-38 DOPPLER MEASUREMENTS ADULT NORMAL Aortic valve Peak velocity, S 343 cm/s Mean velocity, S 207 cm/s VTI, S 74.5 cm Mean gradient, S 21 mm Hg Peak gradient, S 47 mm Hg Mitral valve Peak E-wave velocity 100 cm/s Peak A-wave velocity 75.5 cm/s Peak gradient, D 4 mm Hg Peak E/A ratio 1.3 Tricuspid valve Regurgitant peak velocity 333 cm/s Peak RV-RA gradient, S 44 mm Hg Maximal regurgitant velocity 333 cm/s LEGEND: Mean values are shown as u=mean value. Asterisk (*) sarah values outside specified normal range. Prepared and signed by Colby Beltran [id number]
--- NOTE | 2016-11-09 15:27 | MB ---
cc: JOCELYNN CADET DATE OF CONSULTATION: 11/09/2016 REASON FOR CONSULTATION Change in mental status. HISTORY OF PRESENT ILLNESS The patient is a 76-year-old man who came in with cold symptoms from [place], shortness of breath, congestion, COPD, CHF, dysphagia, BPH, urosepsis, UTI, change in mental status, gout, hypertension, iron deficiency anemia, type 2 diabetes, chronic kidney disease, chronic atrial fibrillation by history. I am asked to see him for change in mental status. ALLERGIES No known drug allergies. MEDICATIONS Medications at the snf: 1. Zinc. 2. Tylenol. 3. Tamsulosin. 4. Inhalers. 5. Potassium. 6. Insulin. 7. Multivitamin. 8. Mirtazapine. 9. Metoclopramide. 10.Loperamide. 11.Lasix. 12.Gabapentin 300 mg b.i.d. 13.Digoxin. 14.Plavix 75 mg a day. 15.Caltrate. 16.Atorvastatin. 17.Allopurinol. The patient is on BiPAP so history is limited. PAST MEDICAL HISTORY As above. On the chart he recently went into acute renal failure. His creatinine was up to 4.8. He was hyperkalemic. PAST SURGICAL HISTORY 1. Esophageal surgery. 2. Feeding tube insertion. PHYSICAL EXAMINATION VITAL SIGNS: Afebrile. 81, 26, 185/72, 122/57. NECK: No carotid bruits. HEART: Regular rhythm. I do not detect a murmur. He is mildly obese. NEUROLOGIC: Pupils are equal. Visual bazan are full. Extraocular movements intact without nystagmus. He is on BiPAP but the face appears symmetric. He moved all of his extremities well with normal strength. The right large toe is amputated. The left toe was downgoing. DTRs are absent throughout. Pinprick he seemed to feel throughout. He knew the month and the year. He complained of some burning in his eyes but no headaches. LABORATORY CBC shows hematocrit 27, otherwise normal. Sed rate is 102. UA with 88 white cells, a few clumps. ABG was 7.28, 53, 68. Basic metabolic profile: BUN 66, creatinine 4.4, potassium 6.1 this morning. Phosphorus and calcium normal. Iron low at 32. Ammonia 24. B12 normal. Thyroid normal. IMAGING He has a pacemaker so cannot have an MRI. Chest x-ray showed some CHF. He had a modified barium swallow in September of this year with no aspiration. He had a CAT scan of the brain which is normal. He has some mild diffuse atrophy. I do not see any significant infarcts. IMPRESSION AND RECOMMENDATIONS I think he looks well neurologically, probably a metabolic encephalopathy. With the atrial fibrillation certainly any coagulation should be considered, considering his renal failure also puts him at increased risk for stroke. I will defer to the med team for anticoagulation. Will check an echo and follow-up the EEG and a carotid ultrasound on him also. MD HUNG Helton/MARJAN /2:21 PM /3:28 PM
--- NOTE | 2016-11-09 15:33 | EKG ---
Date Performed: 11/08/2016 Time Performed: 21:08:35 PTAGE: 76 years EKG: Sinus rhythm RIGHT BUNDLE BRANCH BLOCK ABNORMAL ECG NO PREVIOUS TRACING DOCTOR: Regulo Iyer Interpretating Date/Time 11/09/2016 15:28:59
[2016-11-09] MEDS ORDERED: DEXTROSE 50% IN WATER 50 ML VIAL(D50) IV PUSH PRN (16:45)
[2016-11-09] MEDS ORDERED: GLUCAGON 1 MG/ML VIAL OTHER PRN (16:45)
--- NOTE | 2016-11-09 19:19 | RADRPT ---
EXAM DATE/TIME: 11/09/2016 17:28 [facility] COMPARISON: No previous studies available for comparison. INDICATIONS : Cerebrovascular accident. MEDICAL HISTORY : Gastroesophageal reflux disease. Congestive heart failure. Chronic obstructive pulmonary disease. Mary b. Bradycardia. Chronic renal disease. Gout. Diabetes. Anemia. Blood transfusion. Restless leg syndro me. Reflux uropathy. Benign prostatic hypertrophy. SURGICAL HISTORY : Cholecystectomy. Esophagus surgery. Hernia repair. Right foot surgery. Left knee surgery. Shoulde r surgery. ENCOUNTER: Initial ACUITY: 1 day PAIN SCORE: 0/10 LOCATION: Bilateral neck PEAK SYSTOLIC VELOCITIES (cm/sec): ICA/CCA RATIO: Right: 0.9 Left: 1.0 ICA: Right: 121 Left: 124 CCA: Right: 118 Left: 116 ECA: Right: 121 Left: 124 VERTEBRAL: Right: 89 antegrade Left: 84 antegrade Elevated flow velocities and ICA/CCA ratios have been found to correlate with increased degrees of vessel stenosis, calculated as percentage of diameter relative to a normal segment of distal ICA/CCA FINDINGS: RIGHT CAROTID: Very mild plaque seen of the bulb and proximal internal carotid artery. LEFT CAROTID: Very mild plaque seen in the bulb and proximal internal carotid artery. VERTEBRAL ARTERIES: Antegrade flow is seen in both vertebral arteries. MISCELLANEOUS: None. CONCLUSION: Very mild atherosclerotic plaque of the bilateral carotids. No significant narrowing. Walter Taylor MD on November 09, 2016 at 19:16 Board Certified Radiologist. This report was verified electronically.
--- NOTE | 2016-11-09 19:56 | RADRPT ---
EXAM DATE/TIME: 11/09/2016 17:51 [facility] COMPARISON: No previous studies available for comparison. INDICATIONS : Increased BUN/Creatinine. MEDICAL HISTORY : Gastroesophageal reflux disease. Chronic obstructive pulmonary disease. Congestive heart failure. Mary b. Bradycardia. Chronic renal disease. Gout. Diabetes. Anemia. Blood transfusion. Restless leg syndro me. Reflux uropathy. Benign prostatic hypertrophy. SURGICAL HISTORY : Cholecystectomy. Esophagus surgery. Hernia repair. Right foot surgery. Left knee surgery. Shoulde r surgery. ENCOUNTER: Initial ACUITY: 1 day PAIN SCORE: 0/10 LOCATION: Bilateral flank MEASUREMENTS: RIGHT KIDNEY: 9.6 x 5.7 x 5.6 cm LEFT KIDNEY: 9.7 x 5.2 x 5.1 cm FINDINGS: RIGHT KIDNEY: Isoechoic to slightly hyperechoic parenchymal relative to adjacent liver. Mild prominence of the marie l pelvis without definite calyceal distention. 5 cm lower pole cyst. LEFT KIDNEY: Isoechoic parenchymal relative to adjacent spleen. Mild pelvicaliectasis. BLADDER: Considerable bowel gas in the pelvic cavity. Bladder not well visualized visualized. CONCLUSION: 1. Mildly prominent bilateral collecting systems, age and etiology uncertain. 2. Mild, chronic renal parenchymal disease suspected, nonspecific as to the underlying cause. 3. Cyst incidentally seen right lower pole. Walter Taylor MD on November 09, 2016 at 19:50 Board Certified Radiologist. This report was verified electronically.
--- NOTE | 2016-11-09 20:21 | MB ---
cc: DARWIN GRANADOS DATE OF CONSULTATION 11/09/16 REASON FOR CONSULTATION COPD exacerbation. HISTORY OF PRESENT ILLNESS Mr. Rosenberg is a 76-year-old male with known history of COPD, congestive heart failure and coronary artery disease who was admitted with increasing shortness of breath, associated hypoxemia with COPD exacerbation. The patient's shortness of breath has improved. He denies history of fever, chills, cough or expectoration with occasional snoring with a large neck and underlying sleep disordered breathing was entertained. He does require oxygen therapy to maintain adequate oxygenation on BiPap therapy was being considered, especially during sleep. PAST MEDICAL HISTORY 1. Chronic obstructive pulmonary disease 2. Coronary artery disease. 3. Recent cardiac arrest 4. Question seizure disorder 5. Urosepsis. 6. GI bleed 7. Chronic anemia 8. Congestive heart failure, 9. Hypertension, 10. Hyperlipidemia, 11. Diabetes mellitus, 12. Previous toe amputation. 13. Cataract surgery. 14. He has a feeding tube in place. MEDICATIONS 1. Allopurinol 2. Spiriva 3. Protonix. 4. Remeron. 5. Flomax. 6. Breo elipta 7. Rocephin 8. Nebulized Solu-Medrol intravenously. ALLERGIES AVELOX FLU VACCINE KEFLEX [place]QUIN FAMILY HISTORY Noncontributory. SOCIAL HISTORY Lives alone, , used to smoke, however, has not smoked for many years. Does not use any drugs. PHYSICAL EXAMINATION GENERAL: The patient is alert. VITAL SIGNS: Temperature 97.5, pulse 70, respirations 18, blood pressure 160/70. Oxygen saturation 94% on two liters oxygen nasal cannula. HEENT: Exam unremarkable. Eyes without icterus. NECK: Without adenopathy or thyroid enlargement. Central trachea. CHEST: Few scattered rhonchi at bases. CARDIAC: PMI distant. S1-S2 audible. No murmur or rub. ABDOMEN: Lax, bowel sounds audible. EXTREMITIES: No clubbing, cyanosis or edema. LABORATORY DATA White count 9000, hemoglobin 8.6, hematocrit 27, platelets at 256,000. Sodium 140, potassium 6.1, repeat 5.0, BUN 66, creatinine four. IMAGING STUDIES Chest x-ray 11/08/2016 with increased interstitial markings, however, no overt pulmonary edema is noted. IMPRESSION 1. COPD 2. CHF. 3. Diabetes mellitus 4. Hypertension. 5. Coronary artery disease. 6. Morbid obesity 7. Question obstructive sleep apnea. PLAN 1. The patient will be maintained on bronchodilator therapy. 2. 2. BiPap therapy while sleeping would be helpful. 3. Therapy for underlying congestive heart failure as needed. 4. We will check baseline pulmonary function as well as baseline arterial blood gas. The patient will need polysomnographic evaluation post discharge for underlying sleep disordered breathing. I do thank you for asking me to partake in Mr. Rosenberg' care. Darwin Granados MD WWW/ /6:51 PM /8:02 PM
[2016-11-09] MEDS: SODIUM POLYSTYRENE SULFONATE SUSP 15 GM/60 ML CUP PO SCH (21:42)
[2016-11-09] MEDS: INSULIN ASPART SUPPLEMENTAL SCALE SQ SCH (21:43)
[2016-11-09] MEDS: TAMSULOSIN HCL 0.4 MG CAP PO SCH (21:43)
[2016-11-09] MEDS: MIRTAZAPINE 15 MG TAB PO SCH (21:46)
[2016-11-10] VITALS (16 sets, daily range): BP systolic 142–179; BP diastolic 61–86; PULSE 60–69; RESP 16–28; TEMP 97.6–98.7; O2SAT 94–99
[2016-11-10] MEDS: RESP: ALBUTEROL 2.5 MG/IPRATROPIUM 0.5 MG NEB (SCH) INH ×4 (04:12→21:18)
[2016-11-10] MEDS: methylPREDNISolone SOD SUCC 125 MG/2 ML VIAL IVP SCH ×4 (04:49→20:18)
[2016-11-10 05:25] LABS: BICARBONATE 25.8 MEQ/L (21.0-32.0); POTASSIUM 4.6 MEQ/L (3.5-5.1)
[2016-11-10] MEDS: INSULIN ASPART SUPPLEMENTAL SCALE SQ SCH ×4 (05:51→20:19)
[2016-11-10] MEDS: ALLOPURINOL 100 MG TAB PO SCH (09:40)
[2016-11-10] MEDS: PANTOPRAZOLE SOD 20 MG DELAYED RELEASE TAB PO SCH (09:40)
[2016-11-10] MEDS: SODIUM CHLORIDE 0.9% FLUSH 10 ML FLUSH IV FLUSH SCH ×2 (09:41→20:19)
--- NOTE | 2016-11-10 09:41 | HHI.PR ---
Subjective Subjective Remarks Patient responds to verbal stimuli Opens eyes, appropriate response No shortness of breath at rest, still has BiPAP on Pale mucous membranes Heart rhythm regular, rate between 59 and 60, a few PACs PVCs (Maria Elena Alvarez) Review of Systems Constitutional Constitutional: Weakness (generalized) Constitutional Remarks Attempted 10 point ROS, limited response secondary to BiPAP still on patient ( Maria Elena Alvarez) Pulmonary Respiratory: Coughing (occasional), Shortness of Breath (low volumes) (Maria Elena Alvarez) Musculoskeletal MS: Weakness, Stiffness (Maria Elena Alvarez) Vitals/Results Intake & Output 11/09/16 11/09/16 11/10/16 15:00 23:00 07:00 Intake Total 170 ml 463 ml 727 ml Output Total 1250 ml 450 ml 700 ml Balance -1080 ml 13 ml 27 ml Intake Oral 60 ml 240 ml 480 ml IV Total 110 ml 223 ml 247 ml Output Urine Total 1250 ml 450 ml 700 ml # Bowel Movements 0 1 0 Vital Signs Vital Signs Date Time Temp Pulse Resp B/P Pulse Ox O2 Delivery O2 Flow Rate FiO2 11/10/16 08:20 97 25 11/10/16 08:20 97 BiPAP 11/10/16 07:00 Bi-Pap 25 11/10/16 06:00 61 11/10/16 04:12 97 25 11/10/16 04:00 97.9 60 22 158/72 96 11/10/16 04:00 61 11/10/16 02:00 60 11/10/16 01:13 95 11/10/16 00:00 98.0 69 28 144/67 96 11/10/16 00:00 62 11/09/16 22:00 Bi-Pap 25 11/09/16 22:00 59 11/09/16 21:34 98 25 11/09/16 20:00 98.4 60 15 175/73 95 11/09/16 20:00 Nasal Cannula 2.00 11/09/16 20:00 64 11/09/16 18:00 62 11/09/16 16:30 98 25 11/09/16 16:04 98.3 64 17 167/72 97 11/09/16 16:04 64 11/09/16 14:00 60 11/09/16 12:19 99 25 11/09/16 12:00 98.4 81 26 185/72 95 11/09/16 12:00 75 11/09/16 10:23 98.3 69 18 179/74 95 11/09/16 09:55 94 Nasal Cannula 2.00 (Maria Elena Alvarez) CBC/BMP: 11/09/16 0751 11/10/16 0429 Lab Results Laboratory Tests Test 11/09/16 11/10/16 18:37 04:29 Potassium Level 5.1 MEQ/L 4.6 MEQ/L Sodium Level 146 MEQ/L Chloride Level 112 MEQ/L Carbon Dioxide Level 25.8 MEQ/L Anion Gap 8 MEQ/L Blood Urea Nitrogen 61 MG/DL Creatinine 3.80 MG/DL Estimat Glomerular Filtration 16 ML/MIN Rate Random Glucose 147 MG/DL Calcium Level 9.1 MG/DL Imaging Remarks Last Impressions Carotid Artery Ultrasound 11/09/16 1424 Signed Impressions: Service Date/Time: Wednesday, November 09, 2016 17:28 - CONCLUSION: Very mild atherosclerotic plaque of the bilateral carotids. No significant narrowing. Walter Taylor MD Renal Ultrasound 11/09/16 0000 Signed Impressions: Service Date/Time: Wednesday, November 09, 2016 17:51 - CONCLUSION: 1. Mildly prominent bilateral collecting systems, age and etiology uncertain. 2. Mild, chronic renal parenchymal disease suspected, nonspecific as to the underlying cause. 3. Cyst incidentally seen right lower pole. Walter Taylor MD Head CT 11/09/16 0000 Signed Impressions: Service Date/Time: Wednesday, November 09, 2016 06:48 - CONCLUSION: 1. No acute findings. Mucosal thickening in the maxillary sinuses. Isidro Landeros MD Chest X-Ray 11/08/16 0000 Signed Impressions: Service Date/Time: November 21:15 - CONCLUSION: Prominence of the central vessels which may represent some pulmonary venous hypertension. Godwin edema or consolidation is not seen. Walter White MD Current Medications Administered Medications Medications (Trade) Dose Ordered Sig/Shantelle Route PRN Reason Start Time Stop Time Status Last Admin Dose Admin Sodium Chloride (NS Flush) 2 ml BID IV FLUSH 11/09/16 09:00 11/09/16 21:00 Heparin Sodium (Porcine) (Heparin Inj) 5,000 units Q12H SQ 11/08/16 23:00 11/09/16 21:43 Methylprednisolone Sodium Succinate 60 mg 60 mg Q6H IVP 11/09/16 04:00 11/10/16 04:49 Dextrose/Sodium Chloride 1,000 ml @ 40 mls/hr Q24H IV 11/09/16 03:00 11/09/16 22:13 Ceftriaxone Sodium/Sodium Chloride (Rocephin Inj/NS Inj) 100 ml @ 200 mls/hr Q24H IV 11/09/16 08:00 11/09/16 09:11 Fluticasone/ Vilanterol (Breo Ellipta 100-25 Inh) 1 puff DAILY INH 11/09/16 11:00 11/09/16 13:22 Mirtazapine (Remeron) 15 mg HS PO 11/09/16 21:00 11/09/16 21:46 Tamsulosin HCl (Flomax) 0.4 mg HS PO 11/09/16 21:00 11/09/16 21:43 Sodium Polystyrene Sulfonate (Kayexalate Liq) 15 gm BID PO 11/09/16 21:00 11/09/16 21:42 (Maria Elena Alvarez) Physical Exam General General Appearance: Pale Appearance Remarks Obese (Maria Elena Alvarez) Eyes Eye Exam: Pupils Equal (Maria Elena Alvarez) Ears & Nose Ears & Nose Exam: Nasal Mucosa Arvin (pale) (Maria Elena Alvarez) Throat Throat Exam: Oral Mucosa Arvin & Moist (pale) (Maria Elena Alvarez) Neck Neck Exam: Neck Supple, Trachea Midline Neck Remarks Currently uses BiPAP, at night mostly (Maria Elena Alvarez) Pulmonary Resp Exam: Decreased Bases, Diminished Breath Sounds, Poor Inspiratory Effort ( low volumes) (Maria Elena Alvarez) Cardiology CV Exam: Regular, Normal Sinus Rhythm, Bradycardia CV Remarks Rhythm now shows sinus, heart rate around 60, bundle-branch block with few PACs and PVCs Borderline bradycardic (Maria Elena Alvarez) Gastrointestinal/Abdomen GI Exam: Soft, Non-Tender, Bowel Sounds Present (Maria Elena Alvarez) Musculoskeletal MS Exam: Joints Intact, Atrophy (lower extremities) (Maria Elena Alvarez BLASTING MACHINE OPERATOR) Integumentary Skin Exam: Warm, Dry, Intact (pale) (Maria Elena Alvarez BLASTING MACHINE OPERATOR) Extremeties Extremities Exam: Trace Edema (lower extremities bilateral) (Maria Elena Alvarze BLASTING MACHINE OPERATOR) Neurologic Neuro Remarks Answers short answers appropriately, (Maria Elena Alvarez) VTE Prophylaxis VTE Prophylaxis Device: SCDs (Maria Elena Alvarez) Assessment/Plan Assessment/Plan (1) Respiratory failure (2) Hypoxia (3) Recurrent UTI (4) Acute on chronic renal failure (5) CHF (congestive heart failure) (6) COPD exacerbation (7) Hyperkalemia (8) Anemia (9) Hyperlipidemia (10) CAD (coronary artery disease) (11) Obesity (12) HTN (hypertension) (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, managed as type 2 (14) Stented coronary artery (15) Altered mental status Respiratory failure, hypoxic, hypercarbic COPD exacerbation, currently being maintained in the ICU setting to monitor respiratory status Appreciate pulmonology in their expert opinion We'll order BiPAP, 5/10 with 40% FiO2, predominantly used at night and bacon de rinder DuoNeb's and IV steroids Sepsis Positive blood culture gram-positive today Due to patient's comorbidities and guarded condition and will have IV follow to assist with his antibiotic treatment Acute congestive heart failure, Monitor intake intensive intake and output Yang catheter, she had been given IV Lasix on admission 2-D echo Patient has pacemaker Rhythm noted to be sinus rhythm borderline sinus bradycardia with heart rate in the high 50s to low 60s. Current bundle-branch block with PACs PVCs noted. Appreciate cardiology input for her plan of care and expert opinion. Acute on chronic kidney disease, noted worsening renal function and hyperkalemia. nephrology consult to assist with plan of care Monitor labs, medical management patient still has abnormal BUN/creatinine, 60 1B UN, creatinine 3.8 Possible secondary to his heart status Recurrent UTI, IV Rocephin Altered mental status, Probable metabolic encephalopathy, patient is answering simple questions appropriately today, improvement noted Neurology has been consulted, uro-workup in progress EEG DVT prophylaxis with Plavix Patient not on any beta blockers, will hold off for now due to wheezing Anemia, Probable secondary to chronic disease, monitor for any acute changes Type 2 diabetes, uncontrolled Continue with Accu-Cheks every 4 Sliding scale and IV fluids as needed Hypertension Continue home medications Hyperlipidemia Continue home medications Home medications reviewed, some have been initiated SCDs and heparin for DVT prophylaxis PPI for GI prophylaxis Patient request full code full aggressive care. Patient's wishes and advance directives discussed on admission. Patient understands mechanical ventilation in process (Maria Elena Alvarez) Assessment/Plan pt is seen & examined d/w PT d/w maria elena agree w above cont current tx tx to step down PT eval am labs will f/u (Molly Barba MD) Maria Elena Alvarez November 10, 2016 09:41 Molly Barba MD November 10, 2016 15:36
[2016-11-10] MEDS: cefTRIAXone 1,000 MG/NS 100 ML IV SCH ×2 (09:42)
[2016-11-10] MEDS: CLOPIDOGREL 75 MG TAB PO SCH (09:48)
[2016-11-10] MEDS: SODIUM POLYSTYRENE SULFONATE SUSP 15 GM/60 ML CUP PO SCH ×2 (09:49→20:19)
--- NOTE | 2016-11-10 10:39 | HHI.PR ---
Objective Vital Signs Date Time Temp Pulse Resp B/P Pulse Ox O2 Delivery O2 Flow Rate FiO2 11/10/16 08:20 97 25 11/10/16 08:20 97 BiPAP 25 11/10/16 07:00 Bi-Pap 25 11/10/16 06:00 61 11/10/16 04:12 97 25 11/10/16 04:00 97.9 60 22 158/72 96 11/10/16 04:00 61 11/10/16 02:00 60 11/10/16 01:13 95 25 11/10/16 00:00 98.0 69 28 144/67 96 11/10/16 00:00 62 11/09/16 22:00 Bi-Pap 25 11/09/16 22:00 59 11/09/16 21:34 98 25 11/09/16 20:00 98.4 60 15 175/73 95 11/09/16 20:00 Nasal Cannula 2.00 11/09/16 20:00 64 11/09/16 18:00 62 11/09/16 16:30 98 25 11/09/16 16:04 98.3 64 17 167/72 97 11/09/16 16:04 64 11/09/16 14:00 60 11/09/16 12:19 99 25 11/09/16 12:00 98.4 81 26 185/72 95 11/09/16 12:00 75 I/O 11/09/16 11/09/16 11/09/16 11/10/16 11/10/16 11/10/16 07:00 15:00 23:00 07:00 15:00 23:00 Intake Total 300 ml 170 ml 463 ml 727 ml Output Total 1250 ml 450 ml 700 ml Balance 300 ml -1080 ml 13 ml 27 ml Intake Oral 0 ml 60 ml 240 ml 480 ml IV Total 300 ml 110 ml 223 ml 247 ml Output Urine Total 1250 ml 450 ml 700 ml # Voids 2 # Bowel Movements 0 0 1 0 Result Diagram: 11/09/16 0751 11/10/16 0429 Objective Remarks awake alert vff face sym moves ok ox3 Assessment and Plan Assessment and Plan imp eeg 5 hz bilat no sz echo mild as defer to med team us neg ok neurowise will sign off io defer to med team with afib if should start anticoagulation Reese Hsieh MD November 10, 2016 10:39
[2016-11-10] MEDS: FLUTICASONE 100 MCG/VILANTEROL 25 MCG INHALER INH SCH (11:55)
[2016-11-10] MEDS: TIOTROPIUM BROMIDE 18 MCG INH INH SCH (11:55)
[2016-11-10] MEDS: HEPARIN SODIUM - SQ 10,000 UNITS/ML VIAL SQ SCH ×2 (11:56→21:06)
--- NOTE | 2016-11-10 13:03 | RADRPT ---
EXAM DATE/TIME: 11/10/2016 12:36 [facility] COMPARISON: CHEST SINGLE AP, November 08, 2016, 21:15. INDICATIONS : Shortness of breath MEDICAL HISTORY : Stroke. SURGICAL HISTORY : Pacemaker. ENCOUNTER: Initial ACUITY: 1 day PAIN SCORE: Non-responsive. LOCATION: Bilateral chest FINDINGS: The heart is mildly enlarged. There are diffuse interstitial changes within the parenchyma which are stable compared to previous dated 11/08/16. The transvenous pacer is in good position. The visualized bony structures are grossly intact.CONCLUSION: 1. There is a mild cardiomegaly. There is some prominence of the interstitium and central pulmonary a rteries study could suggest some mild congestive failure. Other differential considerations would inc lude chronic interstitial changes and pulmonary artery hypertension. Dc Hannah MD on November 10, 2016 at 13:00 Board Certified Radiologist. This report was verified electronically.
--- NOTE | 2016-11-10 14:02 | PD.ID.CON ---
History of Present Illness Service ID Consult Requested By /Kim ESQUIVEL Reason for Consult Evaluation and M'ment of GP bacteremia. Primary Care Physician No Primary Care Physician Diagnoses: History of Present Illness Most of the history is by review of medical records. is a 76 y/o CM with PMHx significant for CAD, CHF, COPD, chronic kidney disease stage III, GI bleed, status post cardiac arrest in 2016, stent March 2016, diabetes, pacemaker. Patient was sent to the emergency room from local halfway for evaluation of cold symptoms. Per review of emergency room records, patient had complained of approximately 2 weeks of shortness of breath, wheezing, stuffy nose and congestion. Patient was last admitted to [facility] for sepsis secondary to UTI. Prior to that, patient had an extensive hospitalization at same facility where he had a cardiac arrest requiring intubation. He also went into acute renal injury and was evaluated by nephrology. Was also found with GI bleed and required upper endoscopies and colonoscopy with findings of polyps and rectal ulcers. Prior to that, he was admitted for chest pain and was found with the blockage to the RCA and underwent stent. Patient was evaluated in the emergency room, laboratory workup was completed. CBC was remarkable for hemoglobin of 8.6, hematocrit of 27 which appears to be his baseline. BMP was noted with worsening renal dysfunction, BUN 71, creatinine 4.84 and GFR of 12. He was noted hyperkalemic with potassium of 6.1. Urinalysis was positive for leukocyte esterase and bacteria. Chest x-ray shows prominence of central vessels which may represent some pulmonary venous hypertension, rk edema or consolidation was not seen. In the emergency room , patient received 500 cc fluid bolus. Hyperkalemia was treated with Kayexalate regular insulin D50 and bicarbonate. Empiric antibiotics were started. Overnight, blood glucose dropped to 37 and patient was put on dextrose solution. CT of the head completed was negative. ABGs were completed, pH 7.28 with PCO2 of 53. Patient had moderate resp distress using accessory muscles of respiration. He was placed on BiPAP and transferred to ICU. Lasix 20 mg IV push has been ordered. BCX done as part of suspected sepsis workup positive for GP bacteremia and ID consulted for evaluation and MMent of Sepsis, GP bacteremia. At the time of my evaluation, patient is in ISC sitting in bed, eating a full adult diet and in no resp distress. He is not on pressors, BiPAP and has good urine output. Review of Systems ROS Limitations: Poor Historian Constitutional: DENIES: Diaphoretic episodes, Fatigue, Fever, Weight gain, Weight loss, Chills, Dizziness, Change in appetite, Night Sweats Endocrine: DENIES: Heat/cold intolerance, Polydipsia, Polyuria, Polyphagia Eyes: DENIES: Blurred vision, Diplopia, Eye inflammation, Eye pain, Vision loss , Photosensitivity, Double Vision Ears, nose, mouth, throat: DENIES: Tinnitus, Hearing loss, Vertigo, Nasal discharge, Oral lesions, Throat pain, Hoarseness, Ear Pain, Running Nose, Epistaxis, Sinus Pain, Toothache, Odynophagia Respiratory: COMPLAINS OF: Shortness of breath, DENIES: Apneas, Cough, Snoring , Wheezing, Hemoptysis, Sputum production Cardiovascular: DENIES: Chest pain, Palpitations, Syncope, Dyspnea on Exertion , PND, Lower Extremity Edema, Orthopnea, Claudication Gastrointestinal: DENIES: Abdominal pain, Black stools, Bloody stools, Constipation, Diarrhea, Nausea, Vomiting, Difficulty Swallowing, Anorexia Genitourinary: DENIES: Sexual dysfunction, Urinary frequency, Urinary incontinence, Urgency, Hematuria, Dysuria, Nocturia, Penile Discharge, Testicular Pain, Testicular Swelling Musculoskeletal: DENIES: Joint pain, Muscle aches, Stiffness, Joint Swelling, Back pain, Neck pain Integumentary: DENIES: Abnormal pigmentation, Nail changes, Pruritus, Rash Hematologic/lymphatic: DENIES: Bruising, Lymphadenopathy Immunologic/allergic: DENIES: Eczema, Urticaria Neurologic: DENIES: Abnormal gait, Headache, Localized weakness, Paresthesias, Seizures, Speech Problems, Tremor, Poor Balance Psychiatric: DENIES: Anxiety, Confusion, Mood changes, Depression, Hallucinations, Agitation, Suicidal Ideation, Homicidal Ideation, Delusions Except as stated in HPI: all other systems reviewed are Neg Past Family Social History Allergies: Coded Allergies: Avelox (Verified Allergy, Unknown, 11/09/16) Flu Vaccine (Verified Allergy, Unknown, 11/09/16) Keflex (Verified Allergy, Unknown, 11/09/16) Levaquin (Verified Allergy, Unknown, 11/09/16) Past Medical History Coronary artery disease, stent to RCA 90 03/27/16 at [facility] Recent cardiac arrest, sepsis, possible seizures, GI bleed, acute on chronic renal injury, hematuria\ Urosepsis, recurrent UTI GI bleed CK D stage III Gout Anemia COPD CHF Obesity Hypertension Hyperlipidemia Diabetes Past Surgical History Toe amputation Arthroscopy Cataract surgery Feeding tube insertion Esophageal surgery Cardiac catheter with stent to RCA 90 03/27/16 Cystoscopy 07/11/2016 Upper and lower endoscopy with findings of polyps and rectal ulcer Reported Medications Reported Meds & Active Scripts Active Reported Zinc Oxide (Zinc Oxide (Topical)) 20 % Oin Tylenol (Acetaminophen) 325 Mg Cap 650 Mg PO Q6H PRN Tamsulosin (Tamsulosin HCl) 0.4 Mg Cap 0.4 Mg PO HS Spiriva Handihaler (Tiotropium Inh) 18 Mcg Cap 18 Mcg INH DAILY 1 capsule = 18 mcg Potassium Chloride ER (Potassium Chloride) 20 Meq Tab 20 Meq PO DAILY Polyethylene Glycol 3350 (Polyethylene Glycol 3350 (Bulk) 1 Pow Pow Omeprazole 20 Mg Tab 20 Mg PO DAILY Novolog Flexpen Inj (Insulin Aspart) 300 Unit/3 Ml Pen 1 Units SQ Multivitamin Adult (Multiple Vitamins W/ Minerals) 1 Chw Chw Mirtazapine 15 Mg Tab 15 Mg PO HS Metoclopramide (Metoclopramide HCl) 10 Mg Tab 10 Mg PO DAILY Metoclopramide HCl 1 Pow Pow Gnp Melatonin (Melatonin) 3 Mg Tab Loperamide (Loperamide HCl) 2 Mg Cap 2 Mg PO TID PRN One capsule after each loose stool. Not to exceed 8 capsules per day. Lasix (Furosemide) 40 Mg Tab 40 Mg PO BID Duoneb (Ipratropium-Albuterol Neb) 0.5-2.5 Mg/3 Ml Neb 1 Nebule INH Q4HR NEB Gabapentin 300 Mg Cap 300 Mg PO BID Eucerin (Skin Protectants, Misc.) 1 Cre Cre Digox (Digoxin) 0.125 Mg Tab 0.125 Mg PO DAILY Clopidogrel (Clopidogrel Bisulfate) 75 Mg Tab 75 Mg PO DAILY Caltrate 600+D (Calcium Carbonate-Cholecalciferol) 600-800 Mg-Unit Tab 1 Tab PO BID Breo Ellipta Inh (Fluticasone/Vilanterol) 100-25 Mcg/Act Inh 1 Puff INH DAILY Use daily at the same time. Atorvastatin (Atorvastatin Calcium) 40 Mg Tab 40 Mg PO HS Allopurinol 100 Mg Tab 100 Mg PO DAILY Active Ordered Medications Current Medications Medications (Trade) Dose Ordered Sig/Shantelle Route Start Time Stop Time Status Last Admin (NS Flush) 2 ml UNSCH PRN IV FLUSH 11/08/16 22:45 (NS Flush) 2 ml BID IV FLUSH 11/09/16 09:00 11/10/16 09:41 (Tylenol) 650 mg Q4H PRN PO 11/08/16 22:45 (Zofran Inj) 4 mg Q6H PRN IVP 11/08/16 22:45 (Heparin Inj) 5,000 units Q12H SQ 11/08/16 23:00 11/10/16 11:56 (Narcan Inj) 0.4 mg UNSCH PRN IV 11/08/16 22:45 Methylprednisolone Sodium Succinate 60 mg 60 mg Q6H IVP 11/09/16 04:00 11/10/16 09:41 Dextrose/Sodium Chloride 1,000 ml @ 40 mls/hr Q24H IV 11/09/16 03:00 11/09/16 22:13 (Rocephin Inj/NS Inj) 100 ml @ 200 mls/hr Q24H IV 11/09/16 08:00 11/10/16 09:42 (Zyloprim) 100 mg DAILY PO 11/10/16 09:00 11/10/16 09:40 (Plavix) 75 mg DAILY PO 11/10/16 09:00 11/10/16 09:48 (Breo Ellipta 100-25 Inh) 1 puff DAILY INH 11/09/16 11:00 11/10/16 11:55 (Remeron) 15 mg HS PO 11/09/16 21:00 11/09/16 21:46 (Flomax) 0.4 mg HS PO 11/09/16 21:00 11/09/16 21:43 (Spiriva Inh) 18 mcg DAILY INH 11/10/16 09:00 11/10/16 11:55 (Protonix) 20 mg DAILY PO 11/10/16 09:00 11/10/16 09:40 (Kayexalate Liq) 15 gm BID PO 11/09/16 21:00 11/10/16 09:49 (D50w (Vial) Inj) 25 ml UNSCH PRN IV PUSH 11/09/16 16:45 (Glucagon Inj) 1 mg UNSCH PRN OTHER 11/09/16 16:45 (Zithromax) 500 mg DAILY PO 11/11/16 09:00 UNV Family History reviewed. Social History . has 3 children but not in contact. No drugs, alcohol or drugs. Physical Exam Vital Signs Vital Signs Date Time Temp Pulse Resp B/P Pulse Ox O2 Delivery O2 Flow Rate FiO2 11/10/16 08:20 97 25 11/10/16 08:20 97 BiPAP 11/10/16 07:00 Bi-Pap 11/10/16 06:00 61 11/10/16 04:12 97 25 11/10/16 04:00 97.9 60 22 158/72 96 11/10/16 04:00 61 11/10/16 02:00 60 11/10/16 01:13 95 25 11/10/16 00:00 98.0 69 28 144/67 96 11/10/16 00:00 62 11/09/16 22:00 Bi-Pap 25 11/09/16 22:00 59 11/09/16 21:34 98 25 11/09/16 20:00 98.4 60 15 175/73 95 11/09/16 20:00 Nasal Cannula 2.00 11/09/16 20:00 64 11/09/16 18:00 62 11/09/16 16:30 98 25 11/09/16 16:04 98.3 64 17 167/72 97 11/09/16 16:04 64 Physical Exam GENERAL: Obese, well-developed patient, in no apparent distress. SKIN: No rashes, ecchymoses or lesions. Cool and dry. HEAD: Atraumatic. Normocephalic. No temporal or scalp tenderness. EYES: Pupils equal round and reactive. Extraocular motions intact. No scleral icterus. No injection or drainage. ENT: Nose without bleeding, purulent drainage or septal hematoma. Throat without erythema, tonsillar hypertrophy or exudate. Uvula midline. Airway patent. NECK: Trachea midline. Supple, nontender, no meningeal signs. CARDIOVASCULAR: Regular rate and rhythm without murmurs, gallops, or rubs. RESPIRATORY: Clear to auscultation. Breath sounds equal bilaterally. GASTROINTESTINAL: Abdomen soft, non-tender, nondistended. MUSCULOSKELETAL: Right great toe s.p amputation. No pedal edema. NEUROLOGICAL: Awake and alert. Grossly non focal Psych: cooperative IV line sites with no e/o infection. Laboratory Laboratory Tests Test 11/09/16 11/10/16 18:37 04:29 Potassium Level 5.1 4.6 Sodium Level 146 Chloride Level 112 Carbon Dioxide Level 25.8 Anion Gap 8 Blood Urea Nitrogen 61 Creatinine 3.80 Estimat Glomerular Filtration 16 Rate Random Glucose 147 Calcium Level 9.1 Date/Time Procedure Status Source Growth 11/08/16 22:00 Urine Culture - Final Complete Urine Clean Catch 50-100,000 CFU/ML MIXED DEMOND... 11/08/16 21:05 Aerobic Blood Culture - Preliminary Resulted Blood Peripheral NO GROWTH IN 2 DAYS 11/08/16 21:05 Anaerobic Blood Culture - Preliminary Resulted Gram Positive Cocci Result Diagram: 11/09/16 0751 11/10/16 0429 Imaging Last Impressions Chest X-Ray 11/10/16 0000 Signed Impressions: Service Date/Time: Thursday, November 10, 2016 12:36 - CONCLUSION: 1. There is a mild cardiomegaly. There is some prominence of the interstitium and central pulmonary arteries study could suggest some mild congestive failure. Other differential considerations would include chronic interstitial changes and pulmonary artery hypertension. Dc Hannah MD Carotid Artery Ultrasound 11/09/16 1424 Signed Impressions: Service Date/Time: Wednesday, November 09, 2016 17:28 - CONCLUSION: Very mild atherosclerotic plaque of the bilateral carotids. No significant narrowing. Walter Taylor MD Renal Ultrasound 11/09/16 0000 Signed Impressions: Service Date/Time: Wednesday, November 09, 2016 17:51 - CONCLUSION: 1. Mildly prominent bilateral collecting systems, age and etiology uncertain. 2. Mild, chronic renal parenchymal disease suspected, nonspecific as to the underlying cause. 3. Cyst incidentally seen right lower pole. Walter Taylor MD Head CT 11/09/16 0000 Signed Impressions: Service Date/Time: Wednesday, November 09, 2016 06:48 - CONCLUSION: 1. No acute findings. Mucosal thickening in the maxillary sinuses. Isidro Landeros MD Assessment and Plan Assessment and Plan Gram positive bacteremia ? coag neg staph per prelim report. ? contaminant vs real infection in patient with pacemaker. Acute COPD exacerbation s/p pacemaker no obvious signs of infection. Acute metabolic encephalopathy: metabolic, infection Acute on chronic renal failure. CKD stage III. Recs: Continue Ceftriaxone IV Start Azithro Repeat blood cultures today. If persistent bacteremia may need further workup even if coag neg staph since patient has a pacemaker. If not persistent bacteremia coag neg staph could be a contaminant. Observe off Vanco IV as patient clinically stable and organism could be contaminant. 2D ECHO with no vegetation or pacer thrombus. Follow cultures Follow clinically. Consider palliative care consult to assist with POA and living will etc. as patient has no next of kin and seems to have recurrent admissions lately with decline in overall health. Germania Dye MD November 10, 2016 14:02
--- NOTE | 2016-11-10 14:17 | HHI.PR ---
Subjective Remarks 11/10 Patient is lying in bed in NAD. Afebrile. Objective Vital Signs Vital Signs Date Time Temp Pulse Resp B/P Pulse Ox O2 Delivery O2 Flow Rate FiO2 11/10/16 08:20 97 25 11/10/16 08:20 97 BiPAP 25 11/10/16 07:00 Bi-Pap 11/10/16 06:00 61 11/10/16 04:12 97 25 11/10/16 04:00 97.9 60 22 158/72 96 11/10/16 04:00 61 11/10/16 02:00 60 11/10/16 01:13 95 25 11/10/16 00:00 98.0 69 28 144/67 96 11/10/16 00:00 62 11/09/16 22:00 Bi-Pap 25 11/09/16 22:00 59 11/09/16 21:34 98 25 11/09/16 20:00 98.4 60 15 175/73 95 11/09/16 20:00 Nasal Cannula 2.00 11/09/16 20:00 64 11/09/16 18:00 62 11/09/16 16:30 98 25 11/09/16 16:04 98.3 64 17 167/72 97 11/09/16 16:04 64 I/O 11/09/16 11/09/16 11/09/16 11/10/16 11/10/16 11/10/16 07:00 15:00 23:00 07:00 15:00 23:00 Intake Total 300 ml 170 ml 463 ml 727 ml Output Total 1250 ml 450 ml 700 ml Balance 300 ml -1080 ml 13 ml 27 ml Intake Oral 0 ml 60 ml 240 ml 480 ml IV Total 300 ml 110 ml 223 ml 247 ml Output Urine Total 1250 ml 450 ml 700 ml # Voids 2 # Bowel Movements 0 0 1 0 Result Diagram: 11/09/16 0751 11/10/16 0429 Other Results Last Impressions Chest X-Ray 11/10/16 0000 Signed Impressions: Service Date/Time: Thursday, November 10, 2016 12:36 - CONCLUSION: 1. There is a mild cardiomegaly. There is some prominence of the interstitium and central pulmonary arteries study could suggest some mild congestive failure. Other differential considerations would include chronic interstitial changes and pulmonary artery hypertension. Dc Hannah MD Carotid Artery Ultrasound 11/09/16 1424 Signed Impressions: Service Date/Time: Wednesday, November 09, 2016 17:28 - CONCLUSION: Very mild atherosclerotic plaque of the bilateral carotids. No significant narrowing. Walter Taylor MD Renal Ultrasound 11/09/16 0000 Signed Impressions: Service Date/Time: Wednesday, November 09, 2016 17:51 - CONCLUSION: 1. Mildly prominent bilateral collecting systems, age and etiology uncertain. 2. Mild, chronic renal parenchymal disease suspected, nonspecific as to the underlying cause. 3. Cyst incidentally seen right lower pole. Walter Taylor MD Head CT 11/09/16 0000 Signed Impressions: Service Date/Time: Wednesday, November 09, 2016 06:48 - CONCLUSION: 1. No acute findings. Mucosal thickening in the maxillary sinuses. Isidro Landeros MD Laboratory Tests Test 11/09/16 11/10/16 18:37 04:29 Potassium Level 5.1 MEQ/L 4.6 MEQ/L Sodium Level 146 MEQ/L Chloride Level 112 MEQ/L Carbon Dioxide Level 25.8 MEQ/L Anion Gap 8 MEQ/L Blood Urea Nitrogen 61 MG/DL Creatinine 3.80 MG/DL Estimat Glomerular Filtration 16 ML/MIN Rate Random Glucose 147 MG/DL Calcium Level 9.1 MG/DL Objective Remarks GENERAL: Patient is lying in bed in NAD SKIN: Warm and dry. HEAD: Normocephalic. EYES: No scleral icterus. No injection or drainage. NECK: Supple, trachea midline. No JVD or lymphadenopathy. CARDIOVASCULAR: Regular rate and rhythm without murmurs, gallops, or rubs. RESPIRATORY: Breath sounds equal bilaterally. No accessory muscle use. GASTROINTESTINAL: Abdomen soft, non-tender, nondistended. MUSCULOSKELETAL: No cyanosis, or edema. BACK: Nontender without obvious deformity. No CVA tenderness. Neuro: No focal deficits A/P Assessment and Plan 1. Resp Insuff 2. COPD 3 ARF 4. CHF. 5. Diabetes mellitus 6. Hypertension. 7. Coronary artery disease. 8. Morbid obesity 9. ? obstructive sleep apnea. 10 Encephalopathy 11 Atrial fib 12 UTI PLAN Continue with oxygen keep sat >92% Bronchodilators, aspiration precautions NIPPV PRN for resp distress Continue with abx ( Rocephin, Zithromax) monitor for signs of infections ( Fever , WBC) Echo showed EF 55-60% PFT and sleep study as outpatient Monitor renal function, avoid nephrotoxins- renal is following On D5WNS@40ml/hr Monitor mental status, avoid sedatives. Neuro- Dr. Hsieh GI/DVT prophylaxis per primary team. Ahmet Stone MD November 10, 2016 14:17
--- NOTE | 2016-11-10 15:19 | HHI.NPPN ---
Subjective Additional Remarks Patient is sleepy, arousable, not in distress. Objective Data Data 11/09/16 11/10/16 19:00 07:00 Intake Total 170 ml 1190 ml Output Total 1250 ml 1150 ml Balance -1080 ml 40 ml Intake Oral 60 ml 720 ml IV Total 110 ml 470 ml Output Urine Total 1250 ml 1150 ml # Bowel Movements 0 1 Vital Signs Date Time Temp Pulse Resp B/P Pulse Ox O2 Delivery O2 Flow Rate FiO2 11/10/16 14:00 64 11/10/16 12:00 64 11/10/16 12:00 97.6 64 16 148/86 97 11/10/16 10:00 62 11/10/16 08:20 97 25 11/10/16 08:20 97 BiPAP 25 11/10/16 08:00 62 11/10/16 08:00 98.0 62 17 142/61 97 11/10/16 07:00 Bi-Pap 25 11/10/16 06:00 61 11/10/16 04:12 97 25 11/10/16 04:00 97.9 60 22 158/72 96 11/10/16 04:00 61 11/10/16 02:00 60 11/10/16 01:13 95 25 11/10/16 00:00 98.0 69 28 144/67 96 11/10/16 00:00 62 11/09/16 22:00 Bi-Pap 25 11/09/16 22:00 59 11/09/16 21:34 98 25 11/09/16 20:00 98.4 60 15 175/73 95 11/09/16 20:00 Nasal Cannula 2.00 11/09/16 20:00 64 11/09/16 18:00 62 11/09/16 16:30 98 25 11/09/16 16:04 98.3 64 17 167/72 97 11/09/16 16:04 64 -: 11/09/16 0751 11/10/16 0429 Microbiology 11/10/16 Aerobic Blood Culture, Received Pending 11/10/16 Anaerobic Blood Culture, Received Pending 11/10/16 Aerobic Blood Culture, Received Pending 11/10/16 Anaerobic Blood Culture, Received Pending Physical Exam General Appearance: No Acute Distress, Comfortable, Pale Eyes Eye Exam: Pupils Equal Ears & Nose Ears & Nose Exam: Nasal Mucosa [place] (pale) Throat Throat Exam: Oral Mucosa [place] & Moist (pale) Neck Neck Exam: Neck Supple, Trachea Midline Pulmonary Resp Exam: Decreased Bases, Diminished Breath Sounds, Poor Inspiratory Effort ( low volumes) Cardiology CV Exam: Regular, Normal Sinus Rhythm, Bradycardia Gastrointestinal/Abdomen GI Exam: Soft, Non-Tender, Bowel Sounds Present Musculoskeletal MS Exam: Joints Intact, Atrophy (lower extremities) Integumentary Skin Exam: Warm, Dry, Intact (pale) Extremeties Extremities Exam: Trace Edema (lower extremities bilateral) VTE Prophylaxis Device: SCDs Assessment/Plan Problem List: (1) Acute renal failure Plan: Patient is nonoliguric and has urine output. The Yang catheter is in place these treated for UTI on ceftriaxone Patient creatinine remains elevated. Potassium is now normalized. Ultrasound of the kidney noted. Avoid nephrotoxins and dye studies. Creatinine is slightly better. (2) Hyperkalemia Plan: Patient is treated again hyperkalemic and will repeat the calcium gluconate, D50 insulin and Kayexalate follow potassium (3) CAD (coronary artery disease) Plan: History of cardiac arrest and stents (4) CHF (congestive heart failure) Plan: Patient is on BiPAP (5) Altered mental status Plan: Remains lethargic (6) Recurrent UTI Plan: On ceftriaxone (7) COPD exacerbation Plan: On BiPAP and breathing treatment Problem Qualifiers (1) Acute renal failure: Qualified Code: N17.9 - Acute renal failure, unspecified acute renal failure type (2) CAD (coronary artery disease): Qualified Code: I25.118 - Coronary artery disease involving [place] coronary artery of [place] heart with other form of angina pectoris (3) CHF (congestive heart failure): Qualified Code: I50.9 - Acute on chronic congestive heart failure, unspecified congestive heart failure type (4) Altered mental status: Qualified Code: R40.4 - Transient alteration of awareness Franco Krishnan MD November 10, 2016 15:19
[2016-11-10] MEDS: DEXT 5%-NACL 0.9% 1000 ML INJ 1,000 ML IV SCH (17:03)
[2016-11-10] MEDS: TAMSULOSIN HCL 0.4 MG CAP PO SCH (20:18)
[2016-11-10] MEDS: MIRTAZAPINE 15 MG TAB PO SCH (20:18)
[2016-11-11] VITALS (11 sets, daily range): BP systolic 164–176; BP diastolic 70–79; PULSE 60–87; RESP 18–30; TEMP 97.5–98.9; O2SAT 94–99
[2016-11-11] MEDS: methylPREDNISolone SOD SUCC 125 MG/2 ML VIAL IVP SCH ×3 (03:20→22:30)
[2016-11-11] MEDS: RESP: ALBUTEROL 2.5 MG/IPRATROPIUM 0.5 MG NEB (SCH) INH ×4 (03:44→21:13)
[2016-11-11] MEDS: INSULIN ASPART SUPPLEMENTAL SCALE SQ SCH ×4 (05:26→20:49)
--- NOTE | 2016-11-11 09:24 | HHI.PR ---
Subjective Subjective Remarks Patient more responsive today c/o nausea, no emesis O 2 per cannula. Pale debilitated. (Maria Elena Alvarez) History of Present Illness feels better breathing is better less cough NO CP NO fever or chills NO N/V appetite is ok No abd pain +ve BM offers no other c/o (Molly Barba MD) Review of Systems Constitutional Constitutional: Weakness (generalized) Constitutional Remarks Attempted 10 point ROS, positives note, nausea, encouraged to cough and deep breath, weakness, otherwise systems are unremarkable (Maria Elena Alvarez) Pulmonary Respiratory: Coughing (occasional), Shortness of Breath (low volumes) (Maria Elena Alvarez) GI/Abdomen GI/Abdominal Exam: Nausea (Maria Elena Alvarez) Musculoskeletal MS: Weakness, Stiffness (Maria Elena Alvarez) Vitals/Results Intake & Output 11/10/16 11/10/16 11/11/16 15:00 23:00 07:00 Intake Total 1510 ml 543 ml 392 ml Output Total 625 ml 350 ml 525 ml Balance 885 ml 193 ml -133 ml Intake Oral 1130 ml 240 ml 60 ml IV Total 380 ml 303 ml 332 ml Output Urine Total 625 ml 350 ml 525 ml # Bowel Movements 0 0 Vital Signs Vital Signs Date Time Temp Pulse Resp B/P Pulse Ox O2 Delivery O2 Flow Rate FiO2 11/11/16 08:37 96 Nasal Cannula 2.00 11/11/16 06:00 69 11/11/16 04:00 67 11/11/16 04:00 98.9 67 21 165/70 98 11/11/16 02:00 60 11/11/16 00:00 60 11/11/16 00:00 98.3 60 18 168/71 97 11/10/16 22:00 65 11/10/16 21:19 98 Nasal Cannula 2.00 11/10/16 20:00 60 11/10/16 20:00 98.4 60 20 179/70 99 11/10/16 19:00 99 Nasal Cannula 2.00 11/10/16 18:00 62 11/10/16 16:00 60 11/10/16 16:00 98.7 60 20 153/65 94 5/6/17 14:00 64 11/10/16 12:00 64 11/10/16 12:00 97.6 64 16 148/86 97 11/10/16 10:00 62 (Maria Elena Alvarez) CBC/BMP: 11/09/16 0751 11/10/16 0429 Lab Results Laboratory Tests Test 11/10/16 11/10/16 13:43 18:00 C-Reactive Protein 2.02 MG/DL Nasal Screen MRSA (PCR) MRSA NOT DETECTED Microbiology Microbiology 11/10/16 Aerobic Blood Culture, Received Pending 11/10/16 Anaerobic Blood Culture, Received Pending 11/10/16 Aerobic Blood Culture, Received Pending 11/10/16 Anaerobic Blood Culture, Received Pending 11/10/16 Legionella Antigen, Received Pending 11/10/16 Streptococcus pneumoniae Antigen (M, Received Pending Imaging Remarks Last Impressions Chest X-Ray 11/10/16 0000 Signed Impressions: Service Date/Time: Thursday, November 10, 2016 12:36 - CONCLUSION: 1. There is a mild cardiomegaly. There is some prominence of the interstitium and central pulmonary arteries study could suggest some mild congestive failure. Other differential considerations would include chronic interstitial changes and pulmonary artery hypertension. Dc Hannah MD Carotid Artery Ultrasound 11/09/16 1424 Signed Impressions: Service Date/Time: Wednesday, November 09, 2016 17:28 - CONCLUSION: Very mild atherosclerotic plaque of the bilateral carotids. No significant narrowing. Walter Taylor MD Renal Ultrasound 11/09/16 0000 Signed Impressions: Service Date/Time: Wednesday, November 09, 2016 17:51 - CONCLUSION: 1. Mildly prominent bilateral collecting systems, age and etiology uncertain. 2. Mild, chronic renal parenchymal disease suspected, nonspecific as to the underlying cause. 3. Cyst incidentally seen right lower pole. Walter Taylor MD Head CT 11/09/16 0000 Signed Impressions: Service Date/Time: Wednesday, November 09, 2016 06:48 - CONCLUSION: 1. No acute findings. Mucosal thickening in the maxillary sinuses. Isidro Landeros MD Current Medications Administered Medications Medications (Trade) Dose Ordered Sig/Shantelle Route PRN Reason Start Time Stop Time Status Last Admin Dose Admin Sodium Chloride (NS Flush) 2 ml BID IV FLUSH 11/09/16 09:00 11/10/16 20:19 Heparin Sodium (Porcine) (Heparin Inj) 5,000 units Q12H SQ 11/08/16 23:00 11/10/16 21:06 Methylprednisolone Sodium Succinate 60 mg 60 mg Q6H IVP 11/09/16 04:00 11/11/16 03:20 Dextrose/Sodium Chloride 1,000 ml @ 40 mls/hr Q24H IV 11/09/16 03:00 11/10/16 17:03 Ceftriaxone Sodium/Sodium Chloride (Rocephin Inj/NS Inj) 100 ml @ 200 mls/hr Q24H IV 11/09/16 08:00 11/10/16 09:42 Allopurinol (Zyloprim) 100 mg DAILY PO 11/10/16 09:00 11/10/16 09:40 Clopidogrel Bisulfate (Plavix) 75 mg DAILY PO 11/10/16 09:00 11/10/16 09:48 Fluticasone/ Vilanterol (Breo Ellipta 100-25 Inh) 1 puff DAILY INH 11/09/16 11:00 11/10/16 11:55 Mirtazapine (Remeron) 15 mg HS PO 11/09/16 21:00 11/10/16 20:18 Tamsulosin HCl (Flomax) 0.4 mg HS PO 11/09/16 21:00 11/10/16 20:18 Tiotropium [place] (Spiriva Inh) 18 mcg DAILY INH 11/10/16 09:00 11/10/16 11:55 Pantoprazole Sodium (Protonix) 20 mg DAILY PO 11/10/16 09:00 11/10/16 09:40 Sodium Polystyrene Sulfonate (Kayexalate Liq) 15 gm BID PO 11/09/16 21:00 11/10/16 20:19 (Maria Elena Alvarez) Physical Exam General General Appearance: No Acute Distress, Comfortable, Pale Appearance Remarks Obese (Maria Elena Alvarez) General Appearance: No Acute Distress, Comfortable, Obese (Molly Barba MD) Eyes Eye Exam: Pupils Equal (Maria Elena Alvarez) Eye Exam: Pupils Equal, Sclera White, Extraocular Movement Intact (Molly Barba MD) Ears & Nose Ears & Nose Exam: Nasal Mucosa [place] (pale) (Maria Elena Alvarez) Ears & Nose Exam: Nasal Mucosa [place] (Molly Barba MD) Throat Throat Exam: Oral Mucosa [place] & Moist (pale) (Maria Elena Alvarez) Throat Exam: Oral Mucosa [place] & Moist (Molly Barba MD) Neck Neck Exam: Neck Supple, Trachea Midline Neck Remarks Currently uses BiPAP, at night mostly (Maria Elena Alvarez) Neck Exam: Neck Supple, Trachea Midline (oMlly Barba MD) Pulmonary Resp Exam: Decreased Bases, Diminished Breath Sounds, Poor Inspiratory Effort ( low volumes) (Maria Elena Alvarez) Resp Exam: Breath Sounds Equal, No Distress, Crackles, Rhonchi (Molly Barba MD) Cardiology CV Exam: Regular, Normal Sinus Rhythm, Bradycardia CV Remarks Rhythm now shows sinus, heart rate around 60s, bundle-branch block with few PACs and PVCs (Maria Elena Alvarez) CV Exam: Regular, Normal Sinus Rhythm (Molly Barba MD) Gastrointestinal/Abdomen GI Exam: Soft, Non-Tender, Bowel Sounds Present (Maria Elena Alvarez) GI Exam: Soft, Non-Tender, Bowel Sounds Present (Molly Barba MD) Musculoskeletal MS Exam: Joints Intact, Atrophy (lower extremities) (Maria Elena Alvarez) Integumentary Skin Exam: Warm, Dry, Intact (pale) (Maria Elena Alvarez) Skin Exam: Warm, Dry (Molly Barba MD) Extremeties Extremities Exam: Trace Edema (lower extremities bilateral) (Maria Elena Alvarez) Extremities Exam: No Edema, Pedal Pulses Palpable (Molly Barba MD) Neurologic Neuro Remarks Answers short answers appropriately, (Maria Elena Alvarez) Neuro Exam: Alert, Awake, Oriented, Speech Clear, Moving All Extremities (Molly Barba MD) Psychiatric Psych Exam: Appropriate Responses (Molly Barba MD) VTE Prophylaxis VTE Prophylaxis Device: SCDs (Maria Elena Alvarez) PUD Prophylasis PUD Prophylaxis: Protonix (Molly Barba MD) Assessment/Plan Assessment/Plan Respiratory failure, hypoxic, hypercarbic COPD exacerbation, currently being maintained in the ICU setting to monitor respiratory status Appreciate pulmonology in their expert opinion We'll order BiPAP, 5/10 with 40% FiO2, predominantly used at night, O2 per nasal cannula during the daytime DuoNeb's and IV steroids Attempt to get patient out of bed in chair today, will have PT start working with patient for strengthening and mobility, and out of bed Sepsis, possible Gram positive bacteremia ? Patient has pacemaker incision well-healed, Continue Ceftriaxone and azithromycin IV. ID recheck blood cultures today for possible contaminant 2-D echo ordered to eval heart valves Start Azithro Repeat blood cultures today. If persistent bacteremia may need further workup even if coag neg staph since patient has a pacemaker. If not persistent bacteremia coag neg staph could be a contaminant. Observe off Vanco IV as patient clinically stable and organism could be contaminant. 2D ECHO done shows aortic valve to have mild stenosis, mitral valve trace regurg , EF normal, no vegetation noted Acute congestive heart failure, Monitor intake intensive intake and output Yang catheter, chest x-ray shows possible small amount of congestive failure, monitor Decrease IV fluids to KVO 2-D echo Patient has pacemaker Rhythm noted to be sinus rhythm borderline sinus bradycardia with heart rate in the 60s. Current bundle-branch block with PACs PVCs noted. Appreciate cardiology input for her plan of care and expert opinion. Acute on chronic kidney disease, noted worsening renal function and hyperkalemia. Patient has decreased appetite along with nausea nephrology consult to assist with plan of care Monitor labs, medical management Possible secondary to his heart status Recurrent UTI, IV Rocephin Altered mental status, Probable metabolic encephalopathy, patient is answering simple questions appropriately today, improvement noted Neurology has been consulted, uro-workup in progress EEG Anemia, Probable secondary to chronic disease, monitor for any acute changes Type 2 diabetes, uncontrolled Continue with Accu-Cheks every 4 Sliding scale and IV fluids as needed, Patient is on IV steroids which may be contributing to labile blood sugars SCDs and heparin for DVT prophylaxis PPI for GI prophylaxis Discharge planning, probable SNF, if patient ever stabilizes for a transition. Condition guarded, Initially patient requested full code full aggressive care to be his wishes, but may need to readdress his current medical status if he does not improve Palliative care may be that option to assist patient. We will follow over the next 24-48 hours his overall physical status and decline. May transfer to regular room (Maria Elena Alvarez) Assessment/Plan pt is seen & examined d/w PT feels better transferred out of ICU blood c/s CONS ?? contaminant repeat Blood c/s neg so far Abx per ID d/w Maria Elena pt does not have any family/ will obtain palliative care consult to help direct goals of care & possibly help w establishment of HCS . cont current tx ss for d/c planning will f/u (Molly Barba MD) Maria Elena Alvarez November 11, 2016 09:24 Molly Barba MD November 11, 2016 13:41
[2016-11-11] MEDS: cefTRIAXone 1,000 MG/NS 100 ML IV SCH ×2 (10:09)
[2016-11-11] MEDS: PANTOPRAZOLE SOD 20 MG DELAYED RELEASE TAB PO SCH (10:11)
[2016-11-11] MEDS: AZITHROMYCIN 250 MG TAB PO SCH (10:11)
[2016-11-11] MEDS: CLOPIDOGREL 75 MG TAB PO SCH (10:11)
[2016-11-11] MEDS: ALLOPURINOL 100 MG TAB PO SCH (10:11)
[2016-11-11] MEDS: HEPARIN SODIUM - SQ 10,000 UNITS/ML VIAL SQ SCH ×2 (10:11→22:30)
[2016-11-11] MEDS: SODIUM CHLORIDE 0.9% FLUSH 10 ML FLUSH IV FLUSH SCH ×2 (10:12→20:41)
[2016-11-11] MEDS: SODIUM POLYSTYRENE SULFONATE SUSP 15 GM/60 ML CUP PO SCH ×2 (10:12→20:39)
--- NOTE | 2016-11-11 11:12 | HHI.NPPN ---
Subjective Additional Remarks Patient is alert, sitting on chair, mild SOB, with nasal cannula. Objective Data Data 11/10/16 11/11/16 19:00 07:00 Intake Total 1510 ml 935 ml Output Total 625 ml 875 ml Balance 885 ml 60 ml Intake Oral 1130 ml 300 ml IV Total 380 ml 635 ml Output Urine Total 625 ml 875 ml # Bowel Movements 0 Vital Signs Date Time Temp Pulse Resp B/P Pulse Ox O2 Delivery O2 Flow Rate FiO2 11/11/16 08:37 96 Nasal Cannula 2.00 11/11/16 06:00 69 11/11/16 04:00 67 11/11/16 04:00 98.9 67 21 165/70 98 11/11/16 02:00 60 11/11/16 00:00 60 11/11/16 00:00 98.3 60 18 168/71 97 11/10/16 22:00 65 11/10/16 21:19 98 Nasal Cannula 2.00 11/10/16 20:00 60 11/10/16 20:00 98.4 60 20 179/70 99 11/10/16 19:00 99 Nasal Cannula 2.00 11/10/16 18:00 62 11/10/16 16:00 60 11/10/16 16:00 98.7 60 20 153/65 94 11/10/16 14:00 64 11/10/16 12:00 64 11/10/16 12:00 97.6 64 16 148/86 97 -: 11/09/16 0751 11/10/16 0429 Microbiology 11/10/16 Aerobic Blood Culture - Preliminary, Resulted NO GROWTH IN 1 DAY 11/10/16 Anaerobic Blood Culture - Preliminary, Resulted NO GROWTH IN 1 DAY 11/10/16 Aerobic Blood Culture - Preliminary, Resulted NO GROWTH IN 1 DAY 11/10/16 Anaerobic Blood Culture - Preliminary, Resulted NO GROWTH IN 1 DAY 11/10/16 Legionella Antigen - Final, Complete PRESUMPTIVE NEGATIVE FOR LEGIONELLA P... 11/10/16 Streptococcus pneumoniae Antigen (M - Final, Complete PRESUMPTIVE NEGATIVE FOR STREPTOCOCCU... Physical Exam General Appearance: No Acute Distress, Comfortable, Pale Eyes Eye Exam: Pupils Equal Ears & Nose Ears & Nose Exam: Nasal Mucosa [place] (pale) Throat Throat Exam: Oral Mucosa [place] & Moist (pale) Neck Neck Exam: Neck Supple, Trachea Midline Pulmonary Resp Exam: Decreased Bases, Diminished Breath Sounds, Poor Inspiratory Effort ( low volumes) Cardiology CV Exam: Regular, Normal Sinus Rhythm, Bradycardia Gastrointestinal/Abdomen GI Exam: Soft, Non-Tender, Bowel Sounds Present Musculoskeletal MS Exam: Joints Intact, Atrophy (lower extremities) Integumentary Skin Exam: Warm, Dry, Intact (pale) Extremeties Extremities Exam: Trace Edema (lower extremities bilateral) VTE Prophylaxis Device: SCDs Assessment/Plan Problem List: (1) Acute renal failure Plan: Patient is nonoliguric and has urine output. The Yang catheter is in place these treated for UTI on ceftriaxone Ultrasound of the kidney noted. Avoid nephrotoxins and dye studies. No new BMP. Continue antibiotics, follow BMP. (2) Hyperkalemia Plan: Patient is treated again hyperkalemic and will repeat the calcium gluconate, D50 insulin and Kayexalate follow potassium (3) CAD (coronary artery disease) Plan: History of cardiac arrest and stents (4) CHF (congestive heart failure) Plan: Patient is on BiPAP (5) Altered mental status Plan: Remains lethargic (6) Recurrent UTI Plan: On ceftriaxone (7) COPD exacerbation Plan: On BiPAP and breathing treatment Problem Qualifiers (1) Acute renal failure: Qualified Code: N17.9 - Acute renal failure, unspecified acute renal failure type (2) CAD (coronary artery disease): Qualified Code: I25.118 - Coronary artery disease involving [place] coronary artery of [place] heart with other form of angina pectoris (3) CHF (congestive heart failure): Qualified Code: I50.9 - Acute on chronic congestive heart failure, unspecified congestive heart failure type (4) Altered mental status: Qualified Code: R40.4 - Transient alteration of awareness Franco Krishnan MD November 11, 2016 11:12
--- NOTE | 2016-11-11 12:58 | HHI.PR ---
Subjective Remarks Patient is more awake and alert on 2L oxygen with good sats. Afebrile. Objective Vital Signs Vital Signs Date Time Temp Pulse Resp B/P Pulse Ox O2 Delivery O2 Flow Rate FiO2 11/11/16 10:00 81 11/11/16 10:00 81 22 164/79 98 11/11/16 08:37 96 Nasal Cannula 2.00 11/11/16 08:00 98.5 77 30 164/79 97 11/11/16 08:00 69 11/11/16 07:15 97 Nasal Cannula 2.00 11/11/16 06:00 69 11/11/16 04:00 67 11/11/16 04:00 98.9 67 21 165/70 98 11/11/16 02:00 60 11/11/16 00:00 60 11/11/16 00:00 98.3 60 18 168/71 97 11/10/16 22:00 65 11/10/16 21:19 98 Nasal Cannula 2.00 11/10/16 20:00 60 11/10/16 20:00 98.4 60 20 179/70 99 11/10/16 19:00 99 Nasal Cannula 2.00 11/10/16 18:00 62 11/10/16 16:00 60 11/10/16 16:00 98.7 60 20 153/65 94 11/10/16 14:00 64 I/O 11/10/16 11/10/16 11/10/16 11/11/16 11/11/16 11/11/16 07:00 15:00 23:00 07:00 15:00 23:00 Intake Total 727 ml 1510 ml 543 ml 392 ml Output Total 700 ml 625 ml 350 ml 525 ml Balance 27 ml 885 ml 193 ml -133 ml Intake Oral 480 ml 1130 ml 240 ml 60 ml IV Total 247 ml 380 ml 303 ml 332 ml Output Urine Total 700 ml 625 ml 350 ml 525 ml # Bowel Movements 0 0 0 Result Diagram: 11/09/16 0751 11/10/16 0429 Other Results Laboratory Tests Test 11/10/16 11/10/16 13:43 18:00 C-Reactive Protein 2.02 MG/DL Nasal Screen MRSA (PCR) MRSA NOT DETECTED Objective Remarks GENERAL: Patient is lying in bed in NAD SKIN: Warm and dry. HEAD: Normocephalic. EYES: No scleral icterus. No injection or drainage. NECK: Supple, trachea midline. No JVD or lymphadenopathy. CARDIOVASCULAR: Regular rate and rhythm without murmurs, gallops, or rubs. RESPIRATORY: Breath sounds equal bilaterally. No accessory muscle use. GASTROINTESTINAL: Abdomen soft, non-tender, nondistended. MUSCULOSKELETAL: No cyanosis, or edema. BACK: Nontender without obvious deformity. No CVA tenderness. Neuro: No focal deficits A/P Assessment and Plan 1. Resp Insuff 2. COPD 3 ARF 4. CHF. 5. Diabetes mellitus 6. Hypertension. 7. Coronary artery disease. 8. Morbid obesity 9. ? obstructive sleep apnea. 10 Encephalopathy 11 Atrial fib 12 UTI PLAN Continue with oxygen keep sat >92% Bronchodilators ( DuoNeb, Spiriva, Breo) Decrease Solumederol 40mg Q12 NIPPV PRN for resp distress Continue with abx ( Rocephin, Zithromax) monitor for signs of infections ( Fever , WBC) Echo showed EF 55-60% PFT and sleep study as outpatient Monitor renal function, avoid nephrotoxins- renal is following On D5WNS@40ml/hr Monitor mental status, avoid sedatives. Neuro- Dr. Hsieh GI/DVT prophylaxis per primary team. Ahmet Stone MD November 11, 2016 12:58
[2016-11-11] MEDS: TAMSULOSIN HCL 0.4 MG CAP PO SCH (20:39)
[2016-11-11] MEDS: MIRTAZAPINE 15 MG TAB PO SCH (20:39)
[2016-11-11] MEDS: DEXT 5%-NACL 0.9% 1000 ML INJ 1,000 ML IV SCH (20:49)
[2016-11-12] VITALS (9 sets, daily range): BP systolic 150–177; BP diastolic 56–76; PULSE 64–76; RESP 16–20; TEMP 97.5–98.2; O2SAT 97–99
[2016-11-12] MEDS: RESP: ALBUTEROL 2.5 MG/IPRATROPIUM 0.5 MG NEB (SCH) INH ×4 (05:02→20:29)
[2016-11-12] MEDS: INSULIN ASPART SUPPLEMENTAL SCALE SQ SCH ×4 (06:07→21:31)
[2016-11-12] MEDS: SODIUM CHLORIDE 0.9% FLUSH 10 ML FLUSH IV FLUSH SCH ×2 (09:00→21:00)
[2016-11-12] MEDS: TIOTROPIUM BROMIDE 18 MCG INH INH SCH ×2 (09:00→09:22)
[2016-11-12] MEDS: FLUTICASONE 100 MCG/VILANTEROL 25 MCG INHALER INH SCH ×2 (09:00→09:22)
[2016-11-12] MEDS: cefTRIAXone 1,000 MG/NS 100 ML IV SCH ×2 (09:24)
[2016-11-12] MEDS: SODIUM POLYSTYRENE SULFONATE SUSP 15 GM/60 ML CUP PO SCH ×2 (09:26→21:01)
[2016-11-12] MEDS: PANTOPRAZOLE SOD 20 MG DELAYED RELEASE TAB PO SCH (09:27)
[2016-11-12] MEDS: CLOPIDOGREL 75 MG TAB PO SCH (09:27)
[2016-11-12] MEDS: ALLOPURINOL 100 MG TAB PO SCH (09:27)
[2016-11-12] MEDS: AZITHROMYCIN 250 MG TAB PO SCH (09:27)
[2016-11-12] MEDS: HEPARIN SODIUM - SQ 10,000 UNITS/ML VIAL SQ SCH ×2 (09:28→23:50)
[2016-11-12] MEDS: methylPREDNISolone SOD SUCC 125 MG/2 ML VIAL IVP SCH ×2 (09:28→21:01)
--- NOTE | 2016-11-12 09:28 | MG ---
cc: JOCELYNN CADET Lab No:[id number] Date: 11/10/2016 Age: 76 Sex: M Race: A 76-year-old man on Solu-Medrol, ceftriaxone, bradycardia, afebrile, renal failure, diffuse 5 Hz 60 microvolt rhythm is seen recording overall synchronous and symmetric. No hemisphere asymmetries are noted. Photic stimulation was performed in the recording without significant posterior driving. No epileptiform or seizure activity is seen. Hyperventilation was not performed. The patient was noted to be asleep, in the middle of the recording but did not reach stage II sleep. IMPRESSION Diffuse theta slowing system with a moderate diffuse encephalopathy but no focal abnormality was noted. No seizure activity was seen. MD HUNG [place]/ever /7:32 AM /9:26 AM
--- NOTE | 2016-11-12 11:18 | PD.CONS ---
Consult Service Palliative Care . Consult Requested By Dr. Barba . Primary Care Physician No Primary Care Physician . Reason for Consultation a. To assist with evaluation and management of symptoms including: dyspnea, anxiety b. To assist medical decision maker(s) with: better understanding of current medical conditions; weighing benefits/burdens of medical treatment options; making medical treatment decisions. . HPI History of Present Illness Mr. Rosenberg is a 76-year-old male who presented to [facility] from [facility] on 11/08 for evaluation of cold-like symptoms, 1-2 week duration. The patient reported worsening shortness of breath, wheezing, stuffy nose and congestion. His past medical history is significant for CAD s/p stent placement in 03/2016, s /p recent cardiac arrest in 2016, possible seizures, urosepsis/recurrent UTI, h/ o GI bleed, CKD-stage III, gout, iron deficiency anemia, COPD, CHF, BPH, dysphagia, obesity, hypertension, hyperlipidemia, and DM. Dr. Isac [place] is the patient's primary care physician. The patient has had multiple hospitalizations, most recently admitted to [facility] for management of sepsis secondary to UTI. Prior to that the patient had a long, complicated hospitalization course at the same facility s/p cardiac arrest, requiring intubation. During that hospitalization the patient went into ARF and was diagnosed with a GI bleed, upper endoscopies and colonoscopy revealed polyps and rectal ulcers. The patient was again hospitalized in March, for evaluation of chest pain; he was found to have a blockage to the RCA and underwent stent placement. Additional diagnostic findings in the ED: * Vital signs: Pulse 66, respirations 18, BP 141/65, oxygen saturation 94% on room air, oral temperature 98.5 * WBC: 9.0, hemoglobin 8.6, hematocrit 27.0, platelets 256, neutrophils 71.3% * Sodium: 140, potassium 6.1, chloride 108, carbon dioxide 27.2, glucose 78, calcium 9.0, magnesium 2.2 * BUN: 71, creatinine 4.4, GFR 12 * Total creatine kinase: 69 * Troponin: 0.05 * PT: 11.9, INR 1.1, APTT 32.4 * Urinalysis revealed trace occult blood, large amount of leukocyte esterase, urine WBC, urine W BC clumps and mucusurine culture indicated. * Blood culture: Staph Sp Coagulase Negative * Chest x-ray revealed prominence of the central vessels which may represent some pulmonary venous hypertension, rk edema or consolidation is not seen. * EKG showed sinus rhythm, heart rate 69, no acute ST changes In the ED the patient received a 500 mL normal saline bolus. BMP with worsening renal dysfunction; P ON 71, creatinine 4.84 and GFR of 12. Of note lab work in 08/2016 showed BUN of 23, creatinine 1.73 and potassium 4.6. Patient's potassium was elevated at 6.1; hyperkalemia was treated with Kayexalate, regular insulin, D50 and bicarbonate. Empiric IV antibiotics were initiated. The patient was subsequently admitted for further evaluation and medical management of ARF, COPD sedation and hyperkalemia. Nephrology and pulmonology were consulted. Patient had a hypoglycemic episode overnight with a blood glucose level of 37; he was started on a dextrose drip. On exam the following morning, the patient was noted to have bibasilar rales and expiratory wheezes; he was having difficulty completing sentences. He was placed on BiPAP and transferred to the ICU, Lasix 20 mg IV push was ordered. Per notes the patient knew he was oriented to place and time, medical treatment goals were discussed including the possibility of intubation. Patient was amenable to this plan of care; conversation was witnessed by patient's nurse. Per review of medical records, the patient was living independently prior to his recent hospitalizations. Patient indicated he has no friends and is estranged from his family; he stated he had not spoken to his children in approximately 18 years and has no designated POA. Renal ultrasound revealed mildly prominent bilateral collecting systems, age and etiology uncertain; mildchronic renal parenchymal disease suspected- nonspecific to underlying cause; cyst incidentally seen in the right lower pole. Neurology was consulted for patient's change in mental status, and the patient was evaluated by Dr. Hsieh. A CT of the brain showed no acute findings. Dr. Hsieh feels patient's alteration in mental status is likely secondary to metabolic encephalopathy. Recommendation to consider anticoagulation on this patient with atrial fibrillation and renal failure, decision deferred to medical team. EEG revealed moderate diffuse encephalopathy but no focal abnormality and no seizure activity. Echocardiogram with normal systolic dysfunction, EF 55% to 60%. Negative carotid ultrasound. Dr. Granados, pulmonology, is following. Patient remains on intermittent BiPAP, 5/ 10 with 40% FiO2. Receiving duo nebs and IV steroids. Patient PFT and sleep study recommended. Recommendations for PFT and sleep study as outpatient. Infectious disease was consulted for evaluation and management of sepsis and gram-positive bacteremia. The into continue IV Rocephin, erythromycin was added. Repeat blood cultures on 11/10/16 showing no growth to date. Follow-up chest x-ray revealed mild cardiomegaly; prominence of the interstitium and central pulmonary arteries suggests some mild congestive heart failure; differential considerations include chronic interstitial changes and pulmonary artery hypertension. Palliative care was consulted to assist with clarifications of medical treatment goals and identification of healthcare surrogate in the setting of patient's progressive decline and complications. . Past Family Social History Coded Allergies: Avelox (Verified Allergy, Unknown, 11/09/16) Flu Vaccine (Verified Allergy, Unknown, 11/09/16) Keflex (Verified Allergy, Unknown, 11/09/16) Levaquin (Verified Allergy, Unknown, 11/09/16) Past Medical History Coronary artery disease, stent to RCA 90 03/27/16 at [facility] Recent cardiac arrest, sepsis, possible seizures Urosepsis, recurrent UTI GI bleed CKD stage III Gout Iron deficiency anemia COPD CHF BPH Dysphasia Obesity Hypertension Hyperlipidemia Altered mental status Diabetes . Past Surgical History Toe amputation Arthroscopy Cataract surgery Feeding tube insertion Esophageal surgery Cardiac catheter with stent to RCA 90 03/27/16 Cystoscopy 07/11/2016 Upper and lower endoscopy with findings of polyps and rectal ulcer . Reported Medications Zinc Oxide (Zinc Oxide (Topical)) 20 % Oin Tylenol (Acetaminophen) 325 Mg Cap 650 Mg PO Q6H PRN Tamsulosin (Tamsulosin HCl) 0.4 Mg Cap 0.4 Mg PO HS Spiriva Handihaler (Tiotropium Inh) 18 Mcg Cap 18 Mcg INH DAILY 1 capsule = 18 mcg Potassium Chloride ER (Potassium Chloride) 20 Meq Tab 20 Meq PO DAILY Polyethylene Glycol 3350 (Polyethylene Glycol 3350 (Bulk) 1 Pow Pow Omeprazole 20 Mg Tab 20 Mg PO DAILY Novolog Flexpen Inj (Insulin Aspart) 300 Unit/3 Ml Pen 1 Units SQ Multivitamin Adult (Multiple Vitamins W/ Minerals) 1 Chw Chw Mirtazapine 15 Mg Tab 15 Mg PO HS Metoclopramide (Metoclopramide HCl) 10 Mg Tab 10 Mg PO DAILY Metoclopramide HCl 1 Pow Pow Gnp Melatonin (Melatonin) 3 Mg Tab Loperamide (Loperamide HCl) 2 Mg Cap 2 Mg PO TID PRN One capsule after each loose stool. Not to exceed 8 capsules per day. Lasix (Furosemide) 40 Mg Tab 40 Mg PO BID Duoneb (Ipratropium-Albuterol Neb) 0.5-2.5 Mg/3 Ml Neb 1 Nebule INH Q4HR NEB Gabapentin 300 Mg Cap 300 Mg PO BID Eucerin (Skin Protectants, Misc.) 1 Cre Cre Digox (Digoxin) 0.125 Mg Tab 0.125 Mg PO DAILY Clopidogrel (Clopidogrel Bisulfate) 75 Mg Tab 75 Mg PO DAILY Caltrate 600+D (Calcium Carbonate-Cholecalciferol) 600-800 Mg-Unit Tab 1 Tab PO BID Breo Ellipta Inh (Fluticasone/Vilanterol) 100-25 Mcg/Act Inh 1 Puff INH DAILY Use daily at the same time. Atorvastatin (Atorvastatin Calcium) 40 Mg Tab 40 Mg PO HS Allopurinol 100 Mg Tab 100 Mg PO DAILY . Current Medications Medications (Trade) Dose Ordered Sig/Shantelle Route Start Time Stop Time Status Last Admin (NS Flush) 2 ml UNSCH PRN IV FLUSH 11/08/16 22:45 (NS Flush) 2 ml BID IV FLUSH 11/09/16 09:00 11/11/16 10:12 (Tylenol) 650 mg Q4H PRN PO 11/08/16 22:45 (Zofran Inj) 4 mg Q6H PRN IVP 11/08/16 22:45 (Heparin Inj) 5,000 units Q12H SQ 11/08/16 23:00 11/12/16 09:28 Naloxone HCl 0.4 mg 0.4 mg UNSCH PRN IV 11/08/16 22:45 Dextrose/Sodium Chloride 1,000 ml @ 30 mls/hr Q24H IV 11/09/16 03:00 11/11/16 20:49 (Rocephin Inj/NS Inj) 100 ml @ 200 mls/hr Q24H IV 11/09/16 08:00 11/12/16 09:24 (Zyloprim) 100 mg DAILY PO 11/10/16 09:00 11/12/16 09:27 (Plavix) 75 mg DAILY PO 11/10/16 09:00 11/12/16 09:27 (Breo Ellipta 100-25 Inh) 1 puff DAILY INH 11/09/16 11:00 11/12/16 09:00 (Remeron) 15 mg HS PO 11/09/16 21:00 11/11/16 20:39 (Flomax) 0.4 mg HS PO 11/09/16 21:00 11/11/16 20:39 (Spiriva Inh) 18 mcg DAILY INH 11/10/16 09:00 11/12/16 09:00 (Protonix) 20 mg DAILY PO 11/10/16 09:00 11/12/16 09:27 (Kayexalate Liq) 15 gm BID PO 11/09/16 21:00 11/12/16 09:26 (D50w (Vial) Inj) 25 ml UNSCH PRN IV PUSH 11/09/16 16:45 (Glucagon Inj) 1 mg UNSCH PRN OTHER 11/09/16 16:45 (Zithromax) 500 mg DAILY PO 11/11/16 09:00 11/12/16 09:27 (SoluMEDROL INJ) 40 mg Q12H IVP 11/11/16 22:00 11/12/16 09:28 . Substance Use Tobacco: None known Alcohol: None known Prescription med abuse: None known Illicits: None known . Spiritual/Cultural Factors Christianity fabien . Physical Exam Vital Signs Date Time Temp Pulse Resp B/P Pulse Ox O2 Delivery O2 Flow Rate FiO2 11/12/16 08:17 99 Nasal Cannula 2.00 11/12/16 08:00 97.5 72 20 166/71 97 11/12/16 07:15 99 Nasal Cannula 2.00 11/12/16 04:00 98.2 70 18 152/60 99 11/12/16 04:00 Nasal Cannula 2.00 11/12/16 00:00 Nasal Cannula 2.00 11/12/16 00:00 98.1 76 18 162/58 98 11/11/16 21:23 98 Nasal Cannula 1.00 11/11/16 20:00 98.0 87 20 167/71 94 11/11/16 20:00 Nasal Cannula 2.00 11/11/16 20:00 78 11/11/16 16:00 97.7 80 20 164/74 99 11/11/16 12:00 97 Nasal Cannula 2.00 11/11/16 11:15 97.5 81 20 176/77 98 . 11/11/16 11/12/16 18:59 06:59 Intake Total 800 ml 794 ml Output Total 1300 ml 1650 ml Balance -500 ml -856 ml Intake Oral 560 ml 0 ml IV Total 240 ml 794 ml Output Urine Total 1300 ml 1650 ml # Bowel Movements 2 0 . Exam draft.. CONSTITUTIONAL/GENERAL: This is an adequately nourished patient, in no apparent distress. TUBES/LINES/DRAINS: SKIN: No jaundice, rashes, or lesions. Ecchymoses on upper extremities. No wounds seen anteriorly. Skin temperature appropriate. Not diaphoretic. HEAD: Atraumatic. Normocephalic. EYES: Pupils equal and round and reactive. Extraocular motions intact. No scleral icterus. No injection or drainage. Fundi not examined. ENT: Hearing grossly normal. Nose without bleeding or purulent drainage. Throat without visible erythema, exudates, masses, or lesions. NECK: Trachea midline. Supple, nontender. No palpable thyroid enlargement or nodularity. CARDIOVASCULAR: Regular rate and rhythm without murmurs, gallops, or rubs. No JVD. Peripheral pulses symmetric. RESPIRATORY/CHEST: Symmetric, unlabored respirations. Clear to auscultation. Breath sounds equal bilaterally. No wheezes, rales, or rhonchi. GASTROINTESTINAL: Abdomen soft, non-tender, nondistended. No hepato-splenomegaly , or palpable masses. No guarding. Bowel sounds present. GENITOURINARY: Without palpable bladder distension. Yang catheter in place. MUSCULOSKELETAL: Extremities without clubbing, cyanosis, or edema. No joint tenderness or effusion noted. No calf tenderness. No mottling or clubbing. LYMPHATICS: No palpable cervical or supraclavicular adenopathy. NEUROLOGICAL: Awake and alert. Motor and sensory grossly within normal limits. Follows commands. Cognitively sharp. Moves all extremities. PSYCHIATRIC: No obvious anxiety/depression. no apparent hallucinations or other psychotic thought process. Diagnostic Tests Laboratory Laboratory Tests Test 11/09/16 11/10/16 11/10/16 11/10/16 18:37 04:29 13:43 18:00 Potassium Level 5.1 MEQ/L 4.6 MEQ/L (3.5-5.1) (3.5-5.1) Sodium Level 146 MEQ/L (136-145) Chloride Level 112 MEQ/L (98-107) Carbon Dioxide Level 25.8 MEQ/L (21.0-32.0) Anion Gap 8 MEQ/L (5-15) Blood Urea Nitrogen 61 MG/DL (7-18) Creatinine 3.80 MG/DL (0.60-1.30) Estimat Glomerular Filtration 16 ML/MIN (>89) Rate Random Glucose 147 MG/DL (74-106) Calcium Level 9.1 MG/DL (8.5-10.1) C-Reactive Protein 2.02 MG/DL (0.00-0.30) Nasal Screen MRSA (PCR) MRSA NOT DETECTED (NOT DETECT) . Result Diagram: 11/09/16 0751 11/10/16 0429 Microbiology Microbiology Date/Time Procedure Status Source Growth 11/10/16 13:43 Aerobic Blood Culture - Preliminary Resulted Blood Peripheral NO GROWTH IN 1 DAY 11/10/16 13:43 Anaerobic Blood Culture - Preliminary Resulted Blood Peripheral NO GROWTH IN 1 DAY 11/10/16 13:48 Aerobic Blood Culture - Preliminary Resulted Blood Peripheral NO GROWTH IN 1 DAY 11/10/16 13:48 Anaerobic Blood Culture - Preliminary Resulted Blood Peripheral NO GROWTH IN 1 DAY 11/10/16 19:45 Legionella Antigen - Final Complete Urine Random Urine PRESUMPTIVE NEGATIVE FOR LEGIONELLA P... 11/10/16 19:45 Streptococcus pneumoniae Antigen (M - Final Complete Urine Random Urine PRESUMPTIVE NEGATIVE FOR STREPTOCOCCU... . Imaging Last 72 hours Impressions Chest X-Ray 11/10/16 0000 Signed Impressions: Service Date/Time: Thursday, November 10, 2016 12:36 - CONCLUSION: 1. There is a mild cardiomegaly. There is some prominence of the interstitium and central pulmonary arteries study could suggest some mild congestive failure. Other differential considerations would include chronic interstitial changes and pulmonary artery hypertension. Dc Hannah MD Carotid Artery Ultrasound 11/09/16 1424 Signed Impressions: Service Date/Time: Wednesday, November 09, 2016 17:28 - CONCLUSION: Very mild atherosclerotic plaque of the bilateral carotids. No significant narrowing. Walter Taylor MD . Patient/Family Conference Issues Discussed: * Palliative care role, purpose, approach * Additional medical, psychosocial, and spiritual history * Patients general health, functional status, and cognitive changes in the months leading up to the current hospitalization * Patient/family understanding of the current medical problems * Patient/family understanding of prognosis * Patients goals of care as best understood from advance directives and/or conversations and/or values * Current medical treatment options and benefits/burdens of those options * Likely scenarios comparing ongoing aggressive care with a transition to comfort measures only * Questions answered to the best of my ability * Palliative care contact information provided Assessment and Plan Pertinent Non-Medical Issues Psychosocial: Spiritual: Christianity fabien Legal: Ethical issues impacting care: . Thank you for the opportunity to participate in the care of Mr. Rosenberg. . Attestation To help prompt me to consider important information that might be impacting today's encounter and assessment, information from prior notes written by myself or my colleagues may have been "brought forward" into today's note. My signature on this note, however, is an attestation that I personally performed the exam, history, and/or decision-making noted today, and, unless otherwise indicated, the interactions with patient, family, and staff as well as the review of records all occurred today. I also attest that the listed assessment and stated plan reflect my best clinical judgment today based on the combination of historical information, prior notes, and today's exam/ interactions. When time spent is documented, it refers only to time spent today by the signer, or if indicated, combined time spent today by collaborating physician/nurse practitioner. . Gloria Currie November 12, 2016 11:15
--- NOTE | 2016-11-12 12:22 | HHI.PR ---
Subjective Interval History pt is feeling son sometime feeling weak and tired no pain no chest pain no diarhoea no n/v ROS for 12 point system is unremarkable otherwise Review of Systems Constitutional Constitutional: Weakness (generalized) Pulmonary Respiratory: Coughing (occasional), Shortness of Breath (low volumes) GI/Abdomen GI/Abdominal Exam: Nausea Musculoskeletal MS: Weakness, Stiffness Vitals/Results Intake & Output 11/11/16 11/11/16 11/12/16 14:59 22:59 06:59 Intake Total 360 ml 440 ml 794 ml Output Total 1300 ml 550 ml 1100 ml Balance -940 ml -110 ml -306 ml Intake Oral 360 ml 200 ml 0 ml IV Total 240 ml 794 ml Output Urine Total 1300 ml 550 ml 1100 ml # Bowel Movements 2 0 Vital Signs Vital Signs Date Time Temp Pulse Resp B/P Pulse Ox O2 Delivery O2 Flow Rate FiO2 11/12/16 08:17 99 Nasal Cannula 2.00 11/12/16 08:00 97.5 72 20 166/71 97 11/12/16 07:15 99 Nasal Cannula 2.00 11/12/16 04:00 98.2 70 18 152/60 99 11/12/16 04:00 Nasal Cannula 2.00 11/12/16 00:00 Nasal Cannula 2.00 11/12/16 00:00 98.1 76 18 162/58 98 11/11/16 21:23 98 Nasal Cannula 1.00 11/11/16 20:00 98.0 87 20 167/71 94 11/11/16 20:00 Nasal Cannula 2.00 11/11/16 20:00 78 11/11/16 16:00 97.7 80 20 164/74 99 CBC/BMP: 11/09/16 0751 11/10/16 0429 Physical Exam General General Appearance: No Acute Distress, Comfortable, Obese Eyes Eye Exam: Pupils Equal, Sclera White, Extraocular Movement Intact Ears & Nose Ears & Nose Exam: Nasal Mucosa Sugden Throat Throat Exam: Oral Mucosa Sugden & Moist Neck Neck Exam: Neck Supple, Trachea Midline Pulmonary Resp Exam: Breath Sounds Equal, No Distress, Crackles, Rhonchi Cardiology CV Exam: Regular, Normal Sinus Rhythm Gastrointestinal/Abdomen GI Exam: Soft, Non-Tender, Bowel Sounds Present Musculoskeletal MS Exam: Joints Intact, Atrophy (lower extremities) Integumentary Skin Exam: Warm, Dry Extremeties Extremities Exam: No Edema, Pedal Pulses Palpable Neurologic Neuro Exam: Alert, Awake, Oriented, Speech Clear, Moving All Extremities Psychiatric Psych Exam: Appropriate Responses VTE Prophylaxis VTE Prophylaxis Device: SCDs PUD Prophylasis PUD Prophylaxis: Protonix Assessment/Plan Assessment/Plan Respiratory failure, hypoxic, hypercarbic COPD exacerbation, Appreciate pulmonology in their expert opinion prn BiPAP, 5/10 with 40% FiO2, predominantly used at night, O2 per nasal cannula during the daytime DuoNeb's and IV steroids cont PT for strengthening and mobility, and out of bed Sepsis, possible Gram positive bacteremia ? Patient has pacemaker incision well-healed, Continue Ceftriaxone and azithromycin IV. ID recheck blood cultures today for possible contaminant 2-D echo ordered to eval heart valves Started Azithro blood cultures 5/ sofar negative Observe off Vanco IV as patient clinically stable and organism could be contaminant. 2D ECHO done shows aortic valve to have mild stenosis, mitral valve trace regurg , EF normal, no vegetation noted Acute congestive heart failure, Monitor intake intensive intake and output Yang catheter, chest x-ray shows possible small amount of congestive failure, monitor. one dose of lasix Dc IV fluids to KVO 2-D echo Patient has pacemaker Rhythm noted to be sinus rhythm borderline sinus bradycardia with heart rate in the 60s. Current bundle-branch block with PACs PVCs noted. Appreciate cardiology input for her plan of care and expert opinion. Acute on chronic kidney disease, noted worsening renal function and hyperkalemia. Patient has decreased appetite along with nausea nephrology consult to assist with plan of care, appreciated Monitor labs, medical management Possible secondary to his heart status Recurrent UTI, IV Rocephin Altered mental status, Probable metabolic encephalopathy, patient is answering simple questions appropriately today, improvement noted Neurology has been consulted, uro-workup in progress EEG report reviewed Anemia, Probable secondary to chronic disease, monitor for any acute changes Type 2 diabetes, uncontrolled Continue with Accu-Cheks every 4 Sliding scale and IV fluids as needed, Patient is on IV steroids which may be contributing to labile blood sugars SCDs and heparin for DVT prophylaxis PPI for GI prophylaxis Discharge planning, probable SNF, if patient stabilizes for a transition. Condition guarded, most of pevious ntes reviweed meds and labs reviwed rad data reviwed total time spent in management of this pt is more than 35 min Geetha Velasquez MD November 12, 2016 12:22
[2016-11-12] MEDS ORDERED: FUROSEMIDE 40 MG/4 ML VIAL IV PUSH ONE (12:30)
--- NOTE | 2016-11-12 14:17 | PD.CONS ---
Consult Service Palliative Care . Consult Requested By Dr. Barba . Primary Care Physician No Primary Care Physician . Reason for Consultation a. To assist with evaluation and management of symptoms including: dyspnea, anxiety b. To assist medical decision maker(s) with: better understanding of current medical conditions; weighing benefits/burdens of medical treatment options; making medical treatment decisions. . HPI History of Present Illness Mr. Rosenberg is a 76-year-old male who presented to [place] ED from [facility] on 11/08 for evaluation of cold-like symptoms, 1-2 week duration. The patient reported worsening shortness of breath, wheezing, stuffy nose and congestion. His past medical history is significant for CAD s/p stent placement in 03/2016, s /p recent cardiac arrest in 2016, possible seizures, urosepsis/recurrent UTI, h/ o GI bleed, CKD-stage III, gout, iron deficiency anemia, COPD, CHF, BPH, dysphagia, obesity, hypertension, hyperlipidemia, and DM. Dr. Isac Lima is the patient's primary care physician. The patient has had multiple hospitalizations, most recently admitted to [facility] for management of sepsis secondary to UTI. Prior to that the patient had a long, complicated hospitalization course at the same facility s/p cardiac arrest, requiring intubation. During that hospitalization the patient went into ARF and was diagnosed with a GI bleed, upper endoscopies and colonoscopy revealed polyps and rectal ulcers. The patient was again hospitalized in March, for evaluation of chest pain; he was found to have a blockage to the RCA and underwent stent placement. Additional diagnostic findings in the ED: * Vital signs: Pulse 66, respirations 18, BP 141/65, oxygen saturation 94% on room air, oral temperature 98.5 * WBC: 9.0, hemoglobin 8.6, hematocrit 27.0, platelets 256, neutrophils 71.3% * Sodium: 140, potassium 6.1, chloride 108, carbon dioxide 27.2, glucose 78, calcium 9.0, magnesium 2.2 * BUN: 71, creatinine 4.4, GFR 12 * Total creatine kinase: 69 * Troponin: 0.05 * PT: 11.9, INR 1.1, APTT 32.4 * Urinalysis revealed trace occult blood, large amount of leukocyte esterase, urine WBC, urine W BC clumps and mucusurine culture indicated. * Blood culture: Staph Sp Coagulase Negative * Chest x-ray revealed prominence of the central vessels which may represent some pulmonary venous hypertension, rk edema or consolidation is not seen. * EKG showed sinus rhythm, heart rate 69, no acute ST changes In the ED the patient received a 500 mL normal saline bolus. BMP with worsening renal dysfunction; P ON 71, creatinine 4.84 and GFR of 12. Of note lab work in 08/2016 showed BUN of 23, creatinine 1.73 and potassium 4.6. Patient's potassium was elevated at 6.1; hyperkalemia was treated with Kayexalate, regular insulin, D50 and bicarbonate. Empiric IV antibiotics were initiated. The patient was subsequently admitted for further evaluation and medical management of ARF, COPD sedation and hyperkalemia. Nephrology and pulmonology were consulted. Patient had a hypoglycemic episode overnight with a blood glucose level of 37; he was started on a dextrose drip. On exam the following morning, the patient was noted to have bibasilar rales and expiratory wheezes; he was having difficulty completing sentences. He was placed on BiPAP and transferred to the ICU, Lasix 20 mg IV push was ordered. Per notes the patient knew he was oriented to place and time, medical treatment goals were discussed including the possibility of intubation. Patient was amenable to this plan of care; conversation was witnessed by patient's nurse. Per review of medical records, the patient was living independently prior to his recent hospitalizations. Patient indicated he has no friends and is estranged from his family; he stated he had not spoken to his children in approximately 18 years and has no designated POA. Renal ultrasound revealed mildly prominent bilateral collecting systems, age and etiology uncertain; mildchronic renal parenchymal disease suspected- nonspecific to underlying cause; cyst incidentally seen in the right lower pole. Neurology was consulted for patient's change in mental status, and the patient was evaluated by Dr. Hsieh. A CT of the brain showed no acute findings. Dr. Hsieh feels patient's alteration in mental status is likely secondary to metabolic encephalopathy. Recommendation to consider anticoagulation on this patient with atrial fibrillation and renal failure, decision deferred to medical team. EEG revealed moderate diffuse encephalopathy but no focal abnormality and no seizure activity. Echocardiogram with normal systolic dysfunction, EF 55% to 60%. Negative carotid ultrasound. Dr. Granados, pulmonology, is following. Patient remains on intermittent BiPAP, 5/ 10 with 40% FiO2. Receiving duo nebs and IV steroids. Patient PFT and sleep study recommended. Recommendations for PFT and sleep study as outpatient. Infectious disease was consulted for evaluation and management of sepsis and gram-positive bacteremia. The into continue IV Rocephin, erythromycin was added. Repeat blood cultures on 11/10/16 showing no growth to date. Follow-up chest x-ray revealed mild cardiomegaly; prominence of the interstitium and central pulmonary arteries suggests some mild congestive heart failure; differential considerations include chronic interstitial changes and pulmonary artery hypertension. Palliative care was consulted to assist with clarifications of medical treatment goals and identification of healthcare surrogate in the setting of patient's progressive decline and complications. . Function/Cognitive Trajectory Patient states he was living in dependently and fully functioning prior to his initial hospitalization at [facility] in March,. Patient' s friend, Sarah Pratt, confirms this statement. Mr. Rosenberg has had at least 3 known hospitalizations since March,. The patient now lives at [facility]. He states he will likely be unable to return to his home secondary to his continued decline. The patient states he is appetite has decreased, and he has lost approximately 40 pounds in the past 6 months. He states he has become more weak and has progressively worsening shortness of breath. The patient states he believes he could walk safely to the bathroom, approximately 10 to 15 feet with his walker, but he would likely be significantly short of breath and need to rest. . Review of Systems ROS Limitations: Clinical Condition, Poor Historian Constitutional: COMPLAINS OF: Fatigue (increased fatigue), Weight loss (40 pound reported weight loss since March,), Change in appetite ( decreased appetite), Generalized weakness (increased weakness) Ears, nose, mouth, throat: DENIES: Nasal discharge, Oral lesions, Throat pain, Hoarseness, Ear Pain, Running Nose Respiratory: COMPLAINS OF: Cough, Wheezing, Shortness of breath Cardiovascular: COMPLAINS OF: Chest pain (intermittent s/p stent placement in March,), Dyspnea on Exertion, DENIES: Lower Extremity Edema Gastrointestinal: DENIES: Abdominal pain, Black stools, Bloody stools, Constipation, Diarrhea Musculoskeletal: COMPLAINS OF: Decreased range of motion Hematologic/Lymphatics: COMPLAINS OF: Bruising Neurologic: COMPLAINS OF: Localized weakness Psychiatric: COMPLAINS OF: Anxiety, Confusion Past Family Social History Coded Allergies: Avelox (Verified Allergy, Unknown, 11/09/16) Flu Vaccine (Verified Allergy, Unknown, 11/09/16) Keflex (Verified Allergy, Unknown, 11/09/16) Levaquin (Verified Allergy, Unknown, 11/09/16) Past Medical History Coronary artery disease, stent to RCA 90 03/27/16 at [facility] Recent cardiac arrest, sepsis, possible seizures Urosepsis, recurrent UTI GI bleed CKD stage III Gout Iron deficiency anemia COPD CHF BPH Dysphasia Obesity Hypertension Hyperlipidemia Altered mental status Diabetes . Past Surgical History Toe amputation Arthroscopy Cataract surgery Feeding tube insertion Esophageal surgery Cardiac catheter with stent to RCA 90 03/27/16 Cystoscopy 07/11/2016 Upper and lower endoscopy with findings of polyps and rectal ulcer . Reported Medications Zinc Oxide (Zinc Oxide (Topical)) 20 % Oin Tylenol (Acetaminophen) 325 Mg Cap 650 Mg PO Q6H PRN Tamsulosin (Tamsulosin HCl) 0.4 Mg Cap 0.4 Mg PO HS Spiriva Handihaler (Tiotropium Inh) 18 Mcg Cap 18 Mcg INH DAILY 1 capsule = 18 mcg Potassium Chloride ER (Potassium Chloride) 20 Meq Tab 20 Meq PO DAILY Polyethylene Glycol 3350 (Polyethylene Glycol 3350 (Bulk) 1 Pow Pow Omeprazole 20 Mg Tab 20 Mg PO DAILY Novolog Flexpen Inj (Insulin Aspart) 300 Unit/3 Ml Pen 1 Units SQ Multivitamin Adult (Multiple Vitamins W/ Minerals) 1 Chw Chw Mirtazapine 15 Mg Tab 15 Mg PO HS Metoclopramide (Metoclopramide HCl) 10 Mg Tab 10 Mg PO DAILY Metoclopramide HCl 1 Pow Pow Gnp Melatonin (Melatonin) 3 Mg Tab Loperamide (Loperamide HCl) 2 Mg Cap 2 Mg PO TID PRN One capsule after each loose stool. Not to exceed 8 capsules per day. Lasix (Furosemide) 40 Mg Tab 40 Mg PO BID Duoneb (Ipratropium-Albuterol Neb) 0.5-2.5 Mg/3 Ml Neb 1 Nebule INH Q4HR NEB Gabapentin 300 Mg Cap 300 Mg PO BID Eucerin (Skin Protectants, Misc.) 1 Cre Cre Digox (Digoxin) 0.125 Mg Tab 0.125 Mg PO DAILY Clopidogrel (Clopidogrel Bisulfate) 75 Mg Tab 75 Mg PO DAILY Caltrate 600+D (Calcium Carbonate-Cholecalciferol) 600-800 Mg-Unit Tab 1 Tab PO BID Breo Ellipta Inh (Fluticasone/Vilanterol) 100-25 Mcg/Act Inh 1 Puff INH DAILY Use daily at the same time. Atorvastatin (Atorvastatin Calcium) 40 Mg Tab 40 Mg PO HS Allopurinol 100 Mg Tab 100 Mg PO DAILY . Current Medications Medications (Trade) Dose Ordered Sig/Shantelle Route Start Time Stop Time Status Last Admin (NS Flush) 2 ml UNSCH PRN IV FLUSH 11/08/16 22:45 (NS Flush) 2 ml BID IV FLUSH 11/09/16 09:00 11/11/16 10:12 (Tylenol) 650 mg Q4H PRN PO 11/08/16 22:45 (Zofran Inj) 4 mg Q6H PRN IVP 11/08/16 22:45 (Heparin Inj) 5,000 units Q12H SQ 11/08/16 23:00 11/12/16 09:28 Naloxone HCl 0.4 mg 0.4 mg UNSCH PRN IV 11/08/16 22:45 (Rocephin Inj/NS Inj) 100 ml @ 200 mls/hr Q24H IV 11/09/16 08:00 11/12/16 09:24 (Zyloprim) 100 mg DAILY PO 11/10/16 09:00 11/12/16 09:27 (Plavix) 75 mg DAILY PO 11/10/16 09:00 11/12/16 09:27 (Breo Ellipta 100-25 Inh) 1 puff DAILY INH 11/09/16 11:00 11/12/16 09:00 (Remeron) 15 mg HS PO 11/09/16 21:00 11/11/16 20:39 (Flomax) 0.4 mg HS PO 11/09/16 21:00 11/11/16 20:39 (Spiriva Inh) 18 mcg DAILY INH 11/10/16 09:00 11/12/16 09:00 (Protonix) 20 mg DAILY PO 11/10/16 09:00 11/12/16 09:27 (Kayexalate Liq) 15 gm BID PO 11/09/16 21:00 11/12/16 09:26 (D50w (Vial) Inj) 25 ml UNSCH PRN IV PUSH 11/09/16 16:45 (Glucagon Inj) 1 mg UNSCH PRN OTHER 11/09/16 16:45 (Zithromax) 500 mg DAILY PO 11/11/16 09:00 11/12/16 09:27 (SoluMEDROL INJ) 40 mg Q12H IVP 11/11/16 22:00 11/12/16 09:28 . Family History Father at the age of 98, no known medical history per patient. Mother with heart disease, diabetes and "esophageal problem " ; She in her 60s. . Substance Use Tobacco: Long smoking history, quit in 03/2016. Alcohol: None known. Prescription med abuse: None known. Illicits: None known. . Psychosocial History Patient was in [place], [place]. He states he had no siblings. He moved to [place] while working with the [employer]. 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 Patient was at least once to [facility]; They were for about 11 years. Together they had 3 boys. The patient states his children were taken away from there mother by the state, and he does not know where they ended up. . Spiritual/Cultural Factors Yazidism fabien . Documented care wishes: No documented care wishes available. . Today's verbally stated goals: Patient verbalizing aggressive goals, stating that he wants everything done to keep him alive. He will remain a FULL CODE. He states he is amenable to intubation and mechanical ventilation is medically necessary, and he would consent to tracheostomy placement if indicated. This conversation supports previously expressed goals on 11/09/2016 with ADAN Cagle. . Physical Exam Vital Signs Date Time Temp Pulse Resp B/P Pulse Ox O2 Delivery O2 Flow Rate FiO2 11/12/16 12:00 97.8 68 20 171/74 97 11/12/16 08:17 99 Nasal Cannula 2.00 11/12/16 08:00 97.5 72 20 166/71 97 11/12/16 07:15 99 Nasal Cannula 2.00 11/12/16 04:00 98.2 70 18 152/60 99 11/12/16 04:00 Nasal Cannula 2.00 11/12/16 00:00 Nasal Cannula 2.00 11/12/16 00:00 98.1 76 18 162/58 98 11/11/16 21:23 98 Nasal Cannula 1.00 11/11/16 20:00 98.0 87 20 167/71 94 11/11/16 20:00 Nasal Cannula 2.00 11/11/16 20:00 78 11/11/16 16:00 97.7 80 20 164/74 99 11/11/16 11/12/16 18:59 06:59 Intake Total 800 ml 794 ml Output Total 1300 ml 1650 ml Balance -500 ml -856 ml Intake Oral 560 ml 0 ml IV Total 240 ml 794 ml Output Urine Total 1300 ml 1650 ml # Bowel Movements 2 0 Exam CONSTITUTIONAL/GENERAL: This is an adequately nourished, elderly male patient, in no apparent distress. TUBES/LINES/DRAINS: PIV 1, nasal cannula, Yang catheter SKIN: No jaundice, rashes, or lesions. Ecchymoses on upper extremities. No wounds seen anteriorly. Skin temperature appropriate. Not diaphoretic. HEAD: Atraumatic. Normocephalic. EYES: Pupils equal and round and reactive. Extraocular motions intact. No scleral icterus. No injection or drainage. Fundi not examined. ENT: Hearing grossly normal. Nose without bleeding or purulent drainage. Throat without visible erythema, exudates, masses, or lesions. NECK: Trachea midline. Supple, nontender. No palpable thyroid enlargement or nodularity. CARDIOVASCULAR: Regular rate and rhythm.. No JVD. Peripheral pulses symmetric. RESPIRATORY/CHEST: Breath sounds diminished bilaterally with scattered rales and expiratory wheezing. GASTROINTESTINAL: Abdomen soft, non-tender, nondistended. No guarding. Bowel sounds present. GENITOURINARY: Without palpable bladder distension. Yang catheter in place. MUSCULOSKELETAL: Extremities without clubbing, cyanosis, or edema. . LYMPHATICS: No palpable cervical or supraclavicular adenopathy. NEUROLOGICAL: Awake and alert. Follows commands. Cognitively sharp. Moves all extremities. PSYCHIATRIC: No obvious anxiety/depression. No apparent hallucinations or other psychotic thought process. . Diagnostic Tests Laboratory Laboratory Tests Test 11/09/16 11/10/16 11/10/16 11/10/16 18:37 04:29 13:43 18:00 Potassium Level 5.1 MEQ/L 4.6 MEQ/L (3.5-5.1) (3.5-5.1) Sodium Level 146 MEQ/L (136-145) Chloride Level 112 MEQ/L (98-107) Carbon Dioxide Level 25.8 MEQ/L (21.0-32.0) Anion Gap 8 MEQ/L (5-15) Blood Urea Nitrogen 61 MG/DL (7-18) Creatinine 3.80 MG/DL (0.60-1.30) Estimat Glomerular Filtration 16 ML/MIN (>89) Rate Random Glucose 147 MG/DL (74-106) Calcium Level 9.1 MG/DL (8.5-10.1) C-Reactive Protein 2.02 MG/DL (0.00-0.30) Nasal Screen MRSA (PCR) MRSA NOT DETECTED (NOT DETECT) Result Diagram: 11/09/16 0751 11/10/16 0429 Microbiology Microbiology Date/Time Procedure Status Source Growth 11/10/16 13:43 Aerobic Blood Culture - Preliminary Resulted Blood Peripheral NO GROWTH IN 2 DAYS 11/10/16 13:43 Anaerobic Blood Culture - Preliminary Resulted Blood Peripheral NO GROWTH IN 2 DAYS 11/10/16 13:48 Aerobic Blood Culture - Preliminary Resulted Blood Peripheral NO GROWTH IN 2 DAYS 11/10/16 13:48 Anaerobic Blood Culture - Preliminary Resulted Blood Peripheral NO GROWTH IN 2 DAYS 11/10/16 19:45 Legionella Antigen - Final Complete Urine Random Urine PRESUMPTIVE NEGATIVE FOR LEGIONELLA P... 11/10/16 19:45 Streptococcus pneumoniae Antigen (M - Final Complete Urine Random Urine PRESUMPTIVE NEGATIVE FOR STREPTOCOCCU... Patient/Family Conference Issues Discussed: * Palliative care role, purpose, approach * Additional medical, psychosocial, and spiritual history * Patients general health, functional status, and cognitive changes in the months leading up to the current hospitalization * Patient/family understanding of the current medical problems * Patient/family understanding of prognosis * Patients goals of care as best understood from advance directives and/or conversations and/or values * Current medical treatment options and benefits/burdens of those options * Likely scenarios comparing ongoing aggressive care with a transition to comfort measures only * Questions answered to the best of my ability * Palliative care contact information provided Assessment and Plan Disease Oriented Problem List: (1) Hyperkalemia (2) Anemia (3) CAD (coronary artery disease) (4) CHF (congestive heart failure) (5) Hyperlipidemia (6) Respiratory failure (7) Hypoxia (8) Altered mental status (9) Obesity (10) HTN (hypertension) (11) Recurrent UTI (12) COPD exacerbation (13) Acute on chronic renal failure Symptom Scale: (1) Dyspnea Comment: Patient reports progressively increased shortness of breath at rest and with minimal exertion, admitted with COPD exacerbation. Pulmonology was consulted; Dr. Granados made recommendations for outpatient PFTs and sleep study. On 2L oxygen via nasal cannula with saturations in the high 90s. Receiving nebulizer treatments and using inhaler daily. Titrating IV steroids, currently receiving Solu-Medrol 40 mg IV every 1 hours. Patient may need to be discharged with home oxygen, ongoing education on nonpharmacological management of dyspnea. (2) Anxiety Comment: Patient denies anxiety on exam, but endorses intermittent anxiety secondary to shortness of breath. Anxiety would be best controlled with management of underlying disease process. . Pertinent Non-Medical Issues Psychosocial: Patient was in [place], [place]. He states he had no siblings. He moved to [place] while working with the [employer]. 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 Patient was at least once to [facility]; They were for about 11 years. Together they had 3 boys. The patient states his children were taken away from there mother by the state, and he does not know where they ended up. Spiritual: Yazidism fabien Legal: Patient's friend, Sarah Terence, is the designated health care surrogate. Ethical issues impacting care: Of note, Sarah would prefer not to act as HCS because she is Yazidi and cannot support some of the patient's medical treatment goals. She states the patient has another friend (Eran) who as participated in health care decision-making conversations with the patient and Sarah, and he would be willing to act in this role. She will remain HCS until further conversations can be had with the patient and new HCS form completed. Message left for patient's friend, Eran, with palliative care contact information. . Important Contacts Sarah Pratt, friend: [phone] Eran Jurado, friend: [phone] . Prognosis Patient is a 76-year-old male with multiple comorbid conditions. He has been hospitalized 3 times March,. Complicated medical history that includes CAD s/p stent placement in 03/2016, s/p recent cardiac arrest in 2017, possible seizures, urosepsis/recurrent UTI, h/o GI bleed, acute on chronic kidney failure , COPD, CHF, atrial fibrillation, obesity, hypertension, hyperlipidemia, and DM. Patient has experienced an acute decline over the past several months AEB 40 lb weight loss, increased weakness, multiple falls, progressively worsening dyspnea at rest and with minimal exertion and decreased appetite. He now lives at [facility], and he indicates he will ever be able to return to his home and live independently again. Given the patient's advanced age, recent acute decline and complex medical history, it is likely he will continue to experience setbacks and complications with associated rehospitalization. His overall prognosis is poor. . Code Status: Full Code Plan * FULL CODE * Decision-making: Patient designated his friend, Sarah Pratt, as his healthcare surrogate on 11/12/2016. * Of note, Sarah would prefer not to act as HCS because she is Yazidi and cannot support some of the patient's medical treatment goals. She states the patient has another friend (Eran) who as participated in health care decision-making conversations with the patient and Sarah, and he would be willing to act in this role. She will remain HCS until further conversations can be had with the patient and new HCS form completed. Message left for patient's friend, Eran, with palliative care contact information. * Goals: Patient verbalizing aggressive goals, stating that he wants everything done to keep him alive. He will remain a FULL CODE. He states he is amenable to intubation and mechanical ventilation is medically necessary, and he would consent to tracheostomy placement if indicated. This conversation supports previously expressed goals on 11/09/2016 with ADAN Cagle. * Symptom managementanxiety: Patient denies anxiety on exam, but endorses intermittent anxiety secondary to shortness of breath. Anxiety would be best controlled with management of underlying * Symptom managementdyspnea: Patient reports progressively increased shortness of breath at rest and with minimal exertion, admitted with COPD exacerbation. Pulmonology was consulted; Dr. Granados made recommendations for outpatient PFTs and sleep study. On 2L oxygen via nasal cannula with saturations in the high 90s. Receiving nebulizer treatments and using inhaler daily. Titrating IV steroids, currently receiving Solu-Medrol 40 mg IV every 12 hours. Patient may need to be discharged with home oxygen, ongoing education on nonpharmacological management of dyspnea. * Palliative care contact information provided to patient's friends, Sarah and Eran. * Palliative care will continue to follow patient throughout his hospitalization to establish trust, assist with symptom management and clarification of medical treatment goals. . Thank you for the opportunity to participate in the care of Mr. Rosenberg. Margarita Frank November 12, 2016 14:17
--- NOTE | 2016-11-12 15:44 | HHI.PR ---
Subjective Remarks alert no sob at rest Objective GENERAL: SKIN: Warm and dry. HEAD: Atraumatic. Normocephalic. EYES: Pupils equal and round. No scleral icterus. No injection or drainage. ENT: No nasal bleeding or discharge. Mucous membranes pink and moist. NECK: Trachea midline. No JVD. CARDIOVASCULAR: Regular rate and rhythm. RESPIRATORY: No accessory muscle use. Clear to auscultation. Breath sounds equal bilaterally. GASTROINTESTINAL: Abdomen soft, non-tender, nondistended. Hepatic and splenic margins not palpable. MUSCULOSKELETAL: Extremities without clubbing, cyanosis, or edema. No obvious deformities. NEUROLOGICAL: Awake and alert. No obvious cranial nerve deficits. Motor grossly within normal limits. Five out of 5 muscle strength in the arms and legs. Normal speech. PSYCHIATRIC: Appropriate mood and affect; insight and judgment normal. Vital Signs Date Time Temp Pulse Resp B/P Pulse Ox O2 Delivery O2 Flow Rate FiO2 11/12/16 12:00 97.8 68 20 171/74 97 11/12/16 08:17 99 Nasal Cannula 2.00 11/12/16 08:00 97.5 72 20 166/71 97 11/12/16 07:15 99 Nasal Cannula 2.00 11/12/16 04:00 98.2 70 18 152/60 99 11/12/16 04:00 Nasal Cannula 2.00 11/12/16 00:00 Nasal Cannula 2.00 11/12/16 00:00 98.1 76 18 162/58 98 11/11/16 21:23 98 Nasal Cannula 1.00 11/11/16 20:00 98.0 87 20 167/71 94 11/11/16 20:00 Nasal Cannula 2.00 11/11/16 20:00 78 11/11/16 16:00 97.7 80 20 164/74 99 I/O 11/11/16 11/11/16 11/11/16 11/12/16 11/12/16 11/12/16 06:59 14:59 22:59 06:59 14:59 22:59 Intake Total 392 ml 360 ml 440 ml 794 ml 310 ml Output Total 525 ml 1300 ml 550 ml 1100 ml Balance -133 ml -940 ml -110 ml -306 ml 310 ml Intake Oral 60 ml 360 ml 200 ml 0 ml IV Total 332 ml 240 ml 794 ml 310 ml Output Urine Total 525 ml 1300 ml 550 ml 1100 ml # Bowel Movements 0 2 0 Result Diagram: 11/09/16 0751 11/10/16 0429 Assessment and Plan Assessment and Plan ass: respiratory failure COPD exacerbation ? MELINDA PLAN O2 BRONCHODILATOR THERAPY NPSG P[OST D/C Darwin Granados MD November 12, 2016 15:44
--- NOTE | 2016-11-12 17:05 | HHI.PR ---
Addendum to Inpatient Note Addendum Reason: Additional Documentation Additional Information D/w : this appears to be a primarily a Cardiac issue. He is trying diuretics to assess clinical response. Will follow prn. If patient ready for DC ok to transition to oral Azithro on discharge or oral Doxy as tolerated for another 5-7 days based on clinical response. Blood cultures likely contaminant. Germania Dye MD November 12, 2016 17:05
--- NOTE | 2016-11-12 17:25 | HHI.NPPN ---
Subjective Additional Remarks Patient is alert, alert denies complaints Objective Data Data 11/11/16 11/12/16 19:00 07:00 Intake Total 800 ml 794 ml Output Total 1300 ml 1650 ml Balance -500 ml -856 ml Intake Oral 560 ml 0 ml IV Total 240 ml 794 ml Output Urine Total 1300 ml 1650 ml # Bowel Movements 2 0 Vital Signs Date Time Temp Pulse Resp B/P Pulse Ox O2 Delivery O2 Flow Rate FiO2 11/12/16 16:00 97.8 64 20 177/76 97 11/12/16 12:00 97.8 68 20 171/74 97 11/12/16 08:17 99 Nasal Cannula 2.00 11/12/16 08:00 97.5 72 20 166/71 97 11/12/16 07:15 99 Nasal Cannula 2.00 11/12/16 04:00 98.2 70 18 152/60 99 11/12/16 04:00 Nasal Cannula 2.00 11/12/16 00:00 Nasal Cannula 2.00 11/12/16 00:00 98.1 76 18 162/58 98 11/11/16 21:23 98 Nasal Cannula 1.00 11/11/16 20:00 98.0 87 20 167/71 94 11/11/16 20:00 Nasal Cannula 2.00 11/11/16 20:00 78 -: 11/09/16 0751 11/10/16 0429 Physical Exam General Appearance: No Acute Distress, Comfortable, Obese Eyes Eye Exam: Pupils Equal, Sclera White, Extraocular Movement Intact Ears & Nose Ears & Nose Exam: Nasal Mucosa [place] Throat Throat Exam: Oral Mucosa [place] & Moist Neck Neck Exam: Neck Supple, Trachea Midline Pulmonary Resp Exam: Breath Sounds Equal, No Distress, Crackles, Rhonchi Cardiology CV Exam: Regular, Normal Sinus Rhythm Gastrointestinal/Abdomen GI Exam: Soft, Non-Tender, Bowel Sounds Present Musculoskeletal MS Exam: Joints Intact, Atrophy (lower extremities) Integumentary Skin Exam: Warm, Dry Extremeties Extremities Exam: No Edema, Pedal Pulses Palpable Neurologic Neuro Exam: Alert, Awake, Oriented, Speech Clear, Moving All Extremities Psychiatric Psych Exam: Appropriate Responses VTE Prophylaxis Device: SCDs PUD Prophylasis PUD Prophylaxis: Protonix Assessment/Plan Problem List: (1) Acute renal failure Plan: Patient is nonoliguric and has urine output. Lasix 40 mg given, continue with it daily The Yang catheter is in place these treated for Infection ? pulmonary on ceftriaxone/Azithromycin Ultrasound of the kidney noted. CKD improved Cr declining non oliguric (2) CAD (coronary artery disease) Plan: History of cardiac arrest and stents (3) CHF (congestive heart failure) Plan: Patient is on BiPAP (4) COPD exacerbation Plan: On O2 and breathing treatment Problem Qualifiers (1) Acute renal failure: Qualified Code: N17.9 - Acute renal failure, unspecified acute renal failure type (2) CAD (coronary artery disease): Qualified Code: I25.118 - Coronary artery disease involving [place] coronary artery of [place] heart with other form of angina pectoris (3) CHF (congestive heart failure): Qualified Code: I50.9 - Acute on chronic congestive heart failure, unspecified congestive heart failure type Taylor Gold MD November 12, 2016 17:25
[2016-11-12] MEDS: MIRTAZAPINE 15 MG TAB PO SCH (21:01)
[2016-11-12] MEDS: TAMSULOSIN HCL 0.4 MG CAP PO SCH (21:01)
[2016-11-13] VITALS (9 sets, daily range): BP systolic 146–198; BP diastolic 58–83; PULSE 60–77; RESP 16–20; TEMP 97–98.5; O2SAT 95–99
[2016-11-13] MEDS ORDERED: TEMAZEPAM 7.5 MG CAP PO PRN (01:30)
[2016-11-13] MEDS: INSULIN ASPART SUPPLEMENTAL SCALE SQ SCH ×4 (06:07→22:09)
[2016-11-13 08:17] LABS: HEMATOCRIT 27.9 % (39.0-51.0); MEAN CELL VOLUME 85.9 FL (80.0-100.0); MEAN CORPUSCULAR HEMOGLOBIN 27.6 PG (27.0-34.0); MEAN CORPUSCULAR HGB CONC 32.1 % (32.0-36.0); PLATELET COUNT 258 TH/MM3 (150-450); RED BLOOD COUNT 3.25 MIL/MM3 (4.50-5.90); RED CELL DISTRIBUTION WIDTH 15.9 % (11.6-17.2); REVIEW FLAG FINAL; WHITE BLOOD COUNT 4.7 TH/MM3 (4.0-11.0)
[2016-11-13 08:47] LABS: BICARBONATE 28.6 MEQ/L (21.0-32.0)
[2016-11-13 08:50] LABS: POTASSIUM 2.6 MEQ/L (3.5-5.1)
[2016-11-13] MEDS: FUROSEMIDE 40 MG TAB PO SCH (09:00)
[2016-11-13] MEDS: TIOTROPIUM BROMIDE 18 MCG INH INH SCH (09:18)
[2016-11-13] MEDS: FLUTICASONE 100 MCG/VILANTEROL 25 MCG INHALER INH SCH (09:19)
[2016-11-13] MEDS: PANTOPRAZOLE SOD 20 MG DELAYED RELEASE TAB PO SCH (09:20)
[2016-11-13] MEDS: cefTRIAXone 1,000 MG/NS 100 ML IV SCH ×2 (09:20)
[2016-11-13] MEDS: ALLOPURINOL 100 MG TAB PO SCH (09:20)
[2016-11-13] MEDS: methylPREDNISolone SOD SUCC 125 MG/2 ML VIAL IVP SCH ×2 (09:20→22:09)
[2016-11-13] MEDS: CLOPIDOGREL 75 MG TAB PO SCH (09:20)
[2016-11-13] MEDS: SODIUM CHLORIDE 0.9% FLUSH 10 ML FLUSH IV FLUSH SCH ×2 (09:20→22:02)
[2016-11-13] MEDS: AZITHROMYCIN 250 MG TAB PO SCH (09:20)
[2016-11-13] MEDS: SODIUM POLYSTYRENE SULFONATE SUSP 15 GM/60 ML CUP PO SCH ×2 (09:40→21:00)
[2016-11-13] MEDS: POTASSIUM CHLOR 20 MEQ PREMIX 100 ML IV SCH ×4 (11:27→22:01)
[2016-11-13] MEDS: HEPARIN SODIUM - SQ 10,000 UNITS/ML VIAL SQ SCH ×2 (11:27→22:13)
--- NOTE | 2016-11-13 12:08 | HHI.PR ---
Subjective Subjective Remarks Patient awake alert resting in bed Shortness of breath much improved with deeper volumes of respiration O 2 per cannula. As needed Yang catheter with clear yellow urine active diuresis continues Review of Systems Constitutional Constitutional: Weakness (generalized) Constitutional Remarks Attempted 10 point ROS, positives note, nausea improving encouraged to cough and deep breath, weakness, shortness of breath although that is also improving , otherwise systems are unremarkable Pulmonary Respiratory: Coughing (occasional), Shortness of Breath (low volumes) GI/Abdomen GI/Abdominal Exam: Nausea Musculoskeletal MS: Weakness, Stiffness Vitals/Results Intake & Output 11/12/16 11/12/16 11/13/16 15:00 23:00 07:00 Intake Total 1150 ml 240 ml 0 ml Output Total 900 ml 800 ml 950 ml Balance 250 ml -560 ml -950 ml Intake Oral 840 ml 240 ml 0 ml IV Total 310 ml Output Urine Total 900 ml 800 ml 950 ml # Bowel Movements 1 0 0 Vital Signs Vital Signs Date Time Temp Pulse Resp B/P Pulse Ox O2 Delivery O2 Flow Rate FiO2 11/13/16 09:32 60 11/13/16 09:32 Nasal Cannula 2.00 11/13/16 08:00 97.6 61 16 163/73 99 162/62 11/13/16 04:00 97.7 77 20 150/62 99 11/13/16 02:50 73 11/13/16 00:00 98.3 69 18 146/58 98 11/12/16 21:30 98 Room Air 2.00 11/12/16 20:32 97 Nasal Cannula 2.00 11/12/16 20:00 97.7 67 16 150/56 99 11/12/16 17:50 74 11/12/16 16:00 97.8 64 20 177/76 97 11/12/16 12:00 97.8 68 20 171/74 97 CBC/BMP: 11/13/16 0734 11/13/16 0734 Lab Results Laboratory Tests Test 11/13/16 07:34 White Blood Count 4.7 TH/MM3 Red Blood Count 3.25 MIL/MM3 Hemoglobin 9.0 GM/DL Hematocrit 27.9 % Mean Corpuscular Volume 85.9 FL Mean Corpuscular Hemoglobin 27.6 PG Mean Corpuscular Hemoglobin 32.1 % Concent Red Cell Distribution Width 15.9 % Platelet Count 258 TH/MM3 Mean Platelet Volume 6.1 FL Sodium Level 143 MEQ/L Potassium Level 2.6 MEQ/L Chloride Level 107 MEQ/L Carbon Dioxide Level 28.6 MEQ/L Anion Gap 7 MEQ/L Blood Urea Nitrogen 36 MG/DL Creatinine 1.69 MG/DL Estimat Glomerular Filtration 40 ML/MIN Rate Random Glucose 111 MG/DL Calcium Level 7.6 MG/DL B-Type Natriuretic Peptide 548 PG/ML Imaging Remarks Last Impressions Chest X-Ray 11/10/16 0000 Signed Impressions: Service Date/Time: Thursday, November 10, 2016 12:36 - CONCLUSION: 1. There is a mild cardiomegaly. There is some prominence of the interstitium and central pulmonary arteries study could suggest some mild congestive failure. Other differential considerations would include chronic interstitial changes and pulmonary artery hypertension. Dc Hannah MD Carotid Artery Ultrasound 11/09/16 1424 Signed Impressions: Service Date/Time: Wednesday, November 09, 2016 17:28 - CONCLUSION: Very mild atherosclerotic plaque of the bilateral carotids. No significant narrowing. Walter Taylor MD Renal Ultrasound 11/09/16 0000 Signed Impressions: Service Date/Time: Wednesday, November 09, 2016 17:51 - CONCLUSION: 1. Mildly prominent bilateral collecting systems, age and etiology uncertain. 2. Mild, chronic renal parenchymal disease suspected, nonspecific as to the underlying cause. 3. Cyst incidentally seen right lower pole. Walter Taylor MD Head CT 11/09/16 0000 Signed Impressions: Service Date/Time: Wednesday, November 09, 2016 06:48 - CONCLUSION: 1. No acute findings. Mucosal thickening in the maxillary sinuses. Isidro Landeros MD Current Medications Administered Medications Medications (Trade) Dose Ordered Sig/Shantelle Route PRN Reason Start Time Stop Time Status Last Admin Dose Admin Sodium Chloride (NS Flush) 2 ml BID IV FLUSH 11/09/16 09:00 11/13/16 09:20 Ondansetron HCl (Zofran Inj) 4 mg Q6H PRN IVP NAUSEA OR VOMITING 11/08/16 22:45 11/13/16 06:11 Heparin Sodium (Porcine) 5000 units 5,000 units Q12H SQ 11/08/16 23:00 11/13/16 11:27 Ceftriaxone Sodium/Sodium Chloride (Rocephin Inj/NS Inj) 100 ml @ 200 mls/hr Q24H IV 11/09/16 08:00 11/13/16 09:20 Allopurinol (Zyloprim) 100 mg DAILY PO 11/10/16 09:00 11/13/16 09:20 Clopidogrel Bisulfate (Plavix) 75 mg DAILY PO 11/10/16 09:00 11/13/16 09:20 Fluticasone/ Vilanterol (Breo Ellipta 100-25 Inh) 1 puff DAILY INH 11/09/16 11:00 11/13/16 09:19 Mirtazapine (Remeron) 15 mg HS PO 11/09/16 21:00 11/12/16 21:01 Tamsulosin HCl (Flomax) 0.4 mg HS PO 11/09/16 21:00 11/12/16 21:01 Tiotropium [place] (Spiriva Inh) 18 mcg DAILY INH 11/10/16 09:00 11/13/16 09:18 Pantoprazole Sodium (Protonix) 20 mg DAILY PO 11/10/16 09:00 11/13/16 09:20 Sodium Polystyrene Sulfonate (Kayexalate Liq) 15 gm BID PO 11/09/16 21:00 11/12/16 21:01 Azithromycin (Zithromax) 500 mg DAILY PO 11/11/16 09:00 11/13/16 09:20 Methylprednisolone Sodium Succinate 40 mg 40 mg Q12H IVP 11/11/16 22:00 11/13/16 09:20 Potassium Chloride (KCl 20 Meq Premix Inj) 100 ml @ 50 mls/hr Q2H IV 11/13/16 12:00 11/13/16 19:59 11/13/16 11:27 Physical Exam General General Appearance: No Acute Distress, Comfortable, Obese Appearance Remarks Obese Eyes Eye Exam: Pupils Equal, Sclera White, Extraocular Movement Intact Ears & Nose Ears & Nose Exam: Nasal Mucosa [place] Throat Throat Exam: Oral Mucosa [place] & Moist Neck Neck Exam: Neck Supple, Trachea Midline Neck Remarks Currently uses BiPAP, at night mostly Pulmonary Resp Exam: Breath Sounds Equal, No Distress, Crackles, Rhonchi Cardiology CV Exam: Regular, Normal Sinus Rhythm CV Remarks Rhythm now shows sinus, heart rate around 60s, bundle-branch block with few PACs and PVCs Gastrointestinal/Abdomen GI Exam: Soft, Non-Tender, Bowel Sounds Present Musculoskeletal MS Exam: Joints Intact, Atrophy (lower extremities) Integumentary Skin Exam: Warm, Dry Extremeties Extremities Exam: No Edema, Pedal Pulses Palpable Neurologic Neuro Exam: Alert, Awake, Oriented, Speech Clear, Moving All Extremities Neuro Remarks Answers short answers appropriately, Psychiatric Psych Exam: Appropriate Responses VTE Prophylaxis VTE Prophylaxis Device: SCDs PUD Prophylasis PUD Prophylaxis: Protonix Assessment/Plan Assessment/Plan Respiratory failure, hypoxic, hypercarbic COPD exacerbation, Appreciate pulmonology in their expert opinion prn BiPAP, 5/10 with 40% FiO2, predominantly used at night, O2 per nasal cannula during the daytime DuoNeb's and IV steroids Continues to strengthen, but still suffering with debility Sepsis, possible sta IV antibiotics. ID following cultures redone, negative for urine for strep, Legionella pending 2-D echo ordered to eval heart valves Acute congestive heart failure, Active diuresis after Lasix 40 IV, on a trip with Yang catheter straw-colored urine still diurese, we will give by mouth Lasix later this afternoon after potassium doses have at least been initiated Now has significant hypokalemia, IV K doses given to total 80 mEq a day, we will recheck after doses completed Patient has pacemaker, currently sinus rhythm , bundle branch block Appreciate cardiology input for her plan of care and expert opinion. 2D ECHO done shows aortic valve to have mild stenosis, mitral valve trace regurg , EF normal, no vegetation noted Acute on chronic kidney disease, noted worsening renal function and hyperkalemia. Patient has decreased appetite along with nausea nephrology consult to assist with plan of care, appreciated Monitor labs, medical management Possible secondary to his heart status Altered mental status, resolved, patient is able to answer questions appropriately now and understands what's happening Neurology has been consulted, uro-workup in progress EEG report reviewed Anemia, Probable secondary to chronic disease, monitor for any acute changes, currently 9 Type 2 diabetes, uncontrolled Continue with Accu-Cheks every 4 Sliding scale and IV fluids as needed, Patient is on IV steroids which may be contributing to labile blood sugars Discharge planning, probable SNF, if patient stabilizes for a transition. Condition guarded, but he is responding to IV diuresis Maria Elena Alvarez November 13, 2016 12:08
[2016-11-13] MEDS: hydrALAZINE HCL 25 MG TAB PO PRN (12:33)
[2016-11-13] MEDS: MAGNESIUM SULFATE 1 GM PREMIX 100 ML IV SCH ×2 (14:44→15:44)
--- NOTE | 2016-11-13 14:51 | HHI.NPPN ---
Subjective Additional Remarks Patient is alert, alert denies complaints Objective Data Data 11/12/16 11/13/16 18:59 06:59 Intake Total 1150 ml 240 ml Output Total 900 ml 1750 ml Balance 250 ml -1510 ml Intake Oral 840 ml 240 ml IV Total 310 ml Output Urine Total 900 ml 1750 ml # Bowel Movements 1 0 Vital Signs Date Time Temp Pulse Resp B/P Pulse Ox O2 Delivery O2 Flow Rate FiO2 11/13/16 12:00 98.0 63 16 198/83 98 198/79 11/13/16 09:32 60 11/13/16 09:32 Nasal Cannula 2.00 11/13/16 08:00 97.6 61 16 163/73 99 162/62 11/13/16 04:00 97.7 77 20 150/62 99 11/13/16 02:50 73 11/13/16 00:00 98.3 69 18 146/58 98 11/12/16 21:30 98 Room Air 2.00 11/12/16 20:32 97 Nasal Cannula 2.00 11/12/16 20:00 97.7 67 16 150/56 99 11/12/16 17:50 74 11/12/16 16:00 97.8 64 20 177/76 97 -: 11/13/16 0734 11/13/16 0734 Physical Exam General Appearance: No Acute Distress, Comfortable, Obese Eyes Eye Exam: Pupils Equal, Sclera White, Extraocular Movement Intact Ears & Nose Ears & Nose Exam: Nasal Mucosa [place] Throat Throat Exam: Oral Mucosa [place] & Moist Neck Neck Exam: Neck Supple, Trachea Midline Pulmonary Resp Exam: Breath Sounds Equal, No Distress, Crackles, Rhonchi Cardiology CV Exam: Regular, Normal Sinus Rhythm Gastrointestinal/Abdomen GI Exam: Soft, Non-Tender, Bowel Sounds Present Musculoskeletal MS Exam: Joints Intact, Atrophy (lower extremities) Integumentary Skin Exam: Warm, Dry Extremeties Extremities Exam: No Edema, Pedal Pulses Palpable Neurologic Neuro Exam: Alert, Awake, Oriented, Speech Clear, Moving All Extremities Psychiatric Psych Exam: Appropriate Responses VTE Prophylaxis Device: SCDs PUD Prophylasis PUD Prophylaxis: Protonix Assessment/Plan Problem List: (1) Acute renal failure Plan: Patient is nonoliguric and has urine output. Lasix 40 mg given, K 2.6, Mg low replaced give extra k cr 1.6 pulmonary on ceftriaxone/Azithromycin Ultrasound of the kidney noted. CKD improved Cr declining non oliguric (2) CAD (coronary artery disease) Plan: History of cardiac arrest and stents (3) CHF (congestive heart failure) Plan: Patient is on BiPAP (4) COPD exacerbation Plan: On O2 and breathing treatment Problem Qualifiers (1) Acute renal failure: Qualified Code: N17.9 - Acute renal failure, unspecified acute renal failure type (2) CAD (coronary artery disease): Qualified Code: I25.118 - Coronary artery disease involving [place] coronary artery of [place] heart with other form of angina pectoris (3) CHF (congestive heart failure): Qualified Code: I50.9 - Acute on chronic congestive heart failure, unspecified congestive heart failure type Taylor Gold MD November 13, 2016 14:51
--- NOTE | 2016-11-13 17:26 | HHI.PR ---
Subjective Remarks alert no sob at rest Objective Vital Signs Date Time Temp Pulse Resp B/P Pulse Ox O2 Delivery O2 Flow Rate FiO2 11/13/16 12:00 98.0 63 16 198/83 98 198/79 11/13/16 09:32 60 11/13/16 09:32 Nasal Cannula 2.00 11/13/16 08:00 97.6 61 16 163/73 99 162/62 11/13/16 04:00 97.7 77 20 150/62 99 11/13/16 02:50 73 11/13/16 00:00 98.3 69 18 146/58 98 11/12/16 21:30 98 Room Air 2.00 11/12/16 20:32 97 Nasal Cannula 2.00 11/12/16 20:00 97.7 67 16 150/56 99 11/12/16 17:50 74 I/O 11/12/16 11/12/16 11/12/16 11/13/16 11/13/16 11/13/16 07:00 15:00 23:00 07:00 15:00 23:00 Intake Total 794 ml 1150 ml 240 ml 0 ml Output Total 1100 ml 900 ml 800 ml 950 ml Balance -306 ml 250 ml -560 ml -950 ml Intake Oral 0 ml 840 ml 240 ml 0 ml IV Total 794 ml 310 ml Output Urine Total 1100 ml 900 ml 800 ml 950 ml # Bowel Movements 1 0 0 Result Diagram: 11/13/16 0734 11/13/16 0734 Assessment and Plan Assessment and Plan ass: Improving respiratory failure COPD exacerbation ? MELINDA PLAN O2 BRONCHODILATOR THERAPY NPSG P[OST D/C Increase activity Discharge Planning GENERAL: SKIN: Warm and dry. HEAD: Atraumatic. Normocephalic. EYES: Pupils equal and round. No scleral icterus. No injection or drainage. ENT: No nasal bleeding or discharge. Mucous membranes pink and moist. NECK: Trachea midline. No JVD. CARDIOVASCULAR: Regular rate and rhythm. RESPIRATORY: No accessory muscle use. Clear to auscultation. Breath sounds equal bilaterally. GASTROINTESTINAL: Abdomen soft, non-tender, nondistended. Hepatic and splenic margins not palpable. MUSCULOSKELETAL: Extremities without clubbing, cyanosis, or edema. No obvious deformities. NEUROLOGICAL: Awake and alert. No obvious cranial nerve deficits. Motor grossly within normal limits. Five out of 5 muscle strength in the arms and legs. Normal speech. PSYCHIATRIC: Appropriate mood and affect; insight and judgment normal. Darwin Granados MD November 13, 2016 17:26
[2016-11-13] MEDS: TAMSULOSIN HCL 0.4 MG CAP PO SCH (22:00)
[2016-11-13] MEDS: MIRTAZAPINE 15 MG TAB PO SCH (22:00)
[2016-11-13] MEDS: POTASSIUM CHLORIDE 10 MEQ CONTROLLED RELEASE TAB PO SCH (22:17)
[2016-11-14] VITALS (8 sets, daily range): BP systolic 156–176; BP diastolic 69–82; PULSE 58–64; RESP 18–20; TEMP 97.6–98.2; O2SAT 95–99
[2016-11-14] MEDS: hydrALAZINE HCL 25 MG TAB PO PRN (01:28)
[2016-11-14 05:51] LABS: BICARBONATE 28.3 MEQ/L (21.0-32.0); MAGNESIUM 1.9 MG/DL (1.5-2.5); POTASSIUM 3.5 MEQ/L (3.5-5.1)
[2016-11-14] MEDS: INSULIN ASPART SUPPLEMENTAL SCALE SQ SCH ×2 (06:17→12:19)
[2016-11-14] MEDS: TIOTROPIUM BROMIDE 18 MCG INH INH SCH (08:01)
[2016-11-14] MEDS: ALLOPURINOL 100 MG TAB PO SCH (08:02)
[2016-11-14] MEDS: cefTRIAXone 1,000 MG/NS 100 ML IV SCH ×2 (08:02)
[2016-11-14] MEDS: POTASSIUM CHLORIDE 10 MEQ CONTROLLED RELEASE TAB PO SCH (08:03)
[2016-11-14] MEDS: AZITHROMYCIN 250 MG TAB PO SCH (08:03)
[2016-11-14] MEDS: FUROSEMIDE 40 MG TAB PO SCH (08:03)
[2016-11-14] MEDS: PANTOPRAZOLE SOD 20 MG DELAYED RELEASE TAB PO SCH (08:03)
[2016-11-14] MEDS: CLOPIDOGREL 75 MG TAB PO SCH (08:03)
[2016-11-14] MEDS: methylPREDNISolone SOD SUCC 125 MG/2 ML VIAL IVP SCH (08:03)
[2016-11-14] MEDS: SODIUM CHLORIDE 0.9% FLUSH 10 ML FLUSH IV FLUSH SCH (08:04)
[2016-11-14] MEDS: FLUTICASONE 100 MCG/VILANTEROL 25 MCG INHALER INH SCH (08:04)
[2016-11-14] MEDS: SODIUM POLYSTYRENE SULFONATE SUSP 15 GM/60 ML CUP PO SCH (08:11)
[2016-11-14] MEDS ORDERED: hydrALAZINE HCL 25 MG TAB PO SCH (10:15)
--- NOTE | 2016-11-14 10:23 | HHI.PR ---
Subjective Subjective Remarks Patient awake alert resting in bed, staff states refusing to be up. Instructed patient to be up in chair at least 4 hrs. No SOB O 2 per cannula. removed to rm air today.use only prn Yang catheter, dc today, active diuresis completed. (Maria Elena Alvarez) Review of Systems Constitutional Constitutional: Weakness (generalized) Constitutional Remarks Attempted 10 point ROS, positives note, nausea improving encouraged to cough and deep breath, weakness, shortness of breath although that is also improving , otherwise systems are unremarkable (Maria Elena Alvarez) Pulmonary Respiratory: Coughing (occasional), Shortness of Breath (low volumes, improved) (Maria Elena Alvarez) GI/Abdomen GI/Abdominal Exam: Nausea (Maria Elena Alvarez) Musculoskeletal MS: Weakness, Stiffness, Swelling (ankle edema improved,) (Maria Elena Alvarez) Vitals/Results Intake & Output 11/13/16 11/13/16 11/14/16 15:00 23:00 07:00 Intake Total 600 ml 960 ml 120 ml Output Total 1150 ml 200 ml 500 ml Balance -550 ml 760 ml -380 ml Intake Oral 600 ml 360 ml 120 ml IV Total 600 ml Output Urine Total 1150 ml 200 ml 500 ml # Bowel Movements 0 0 0 Vital Signs Vital Signs Date Time Temp Pulse Resp B/P Pulse Ox O2 Delivery O2 Flow Rate FiO2 11/14/16 08:20 Nasal Cannula 2.00 11/14/16 08:00 97.7 62 18 160/76 98 11/14/16 04:10 98.2 64 18 174/77 99 160/82 11/14/16 04:01 62 11/14/16 01:24 61 18 176/80 98 11/14/16 00:59 59 11/13/16 23:32 97.0 61 18 164/73 97 152/76 11/13/16 22:10 Room Air 2.00 11/13/16 19:32 97.9 63 18 149/66 96 11/13/16 16:00 98.5 75 16 162/69 95 11/13/16 12:00 98.0 63 16 198/83 98 198/79 (Maria Elena Alvarez) CBC/BMP: 11/13/16 0734 11/14/16 0505 Lab Results Laboratory Tests Test 11/14/16 05:05 Sodium Level 143 MEQ/L Potassium Level 3.5 MEQ/L Chloride Level 107 MEQ/L Carbon Dioxide Level 28.3 MEQ/L Anion Gap 8 MEQ/L Blood Urea Nitrogen 33 MG/DL Creatinine 1.61 MG/DL Estimat Glomerular Filtration 42 ML/MIN Rate Random Glucose 121 MG/DL Calcium Level 7.7 MG/DL Magnesium Level 1.9 MG/DL Imaging Remarks Last Impressions Chest X-Ray 11/10/16 0000 Signed Impressions: Service Date/Time: Thursday, November 10, 2016 12:36 - CONCLUSION: 1. There is a mild cardiomegaly. There is some prominence of the interstitium and central pulmonary arteries study could suggest some mild congestive failure. Other differential considerations would include chronic interstitial changes and pulmonary artery hypertension. Dc Hannah MD Carotid Artery Ultrasound 11/09/16 1424 Signed Impressions: Service Date/Time: Wednesday, November 09, 2016 17:28 - CONCLUSION: Very mild atherosclerotic plaque of the bilateral carotids. No significant narrowing. Walter Taylor MD Renal Ultrasound 11/09/16 0000 Signed Impressions: Service Date/Time: Wednesday, November 09, 2016 17:51 - CONCLUSION: 1. Mildly prominent bilateral collecting systems, age and etiology uncertain. 2. Mild, chronic renal parenchymal disease suspected, nonspecific as to the underlying cause. 3. Cyst incidentally seen right lower pole. Walter Taylor MD Head CT 11/09/16 0000 Signed Impressions: Service Date/Time: Wednesday, November 09, 2016 06:48 - CONCLUSION: 1. No acute findings. Mucosal thickening in the maxillary sinuses. Isidro Landeros MD Current Medications Administered Medications Medications (Trade) Dose Ordered Sig/Shantelle Route PRN Reason Start Time Stop Time Status Last Admin Dose Admin Sodium Chloride (NS Flush) 2 ml BID IV FLUSH 11/09/16 09:00 11/14/16 08:04 Ondansetron HCl (Zofran Inj) 4 mg Q6H PRN IVP NAUSEA OR VOMITING 11/08/16 22:45 11/13/16 06:11 Heparin Sodium (Porcine) 5000 units 5,000 units Q12H SQ 11/08/16 23:00 11/13/16 22:13 Ceftriaxone Sodium/Sodium Chloride (Rocephin Inj/NS Inj) 100 ml @ 200 mls/hr Q24H IV 11/09/16 08:00 11/14/16 08:02 Allopurinol (Zyloprim) 100 mg DAILY PO 11/10/16 09:00 11/14/16 08:02 Clopidogrel Bisulfate (Plavix) 75 mg DAILY PO 11/10/16 09:00 11/14/16 08:03 Fluticasone/ Vilanterol (Breo Ellipta 100-25 Inh) 1 puff DAILY INH 11/09/16 11:00 11/14/16 08:04 Mirtazapine (Remeron) 15 mg HS PO 11/09/16 21:00 11/13/16 22:00 Tamsulosin HCl (Flomax) 0.4 mg HS PO 11/09/16 21:00 11/13/16 22:00 Tiotropium [place] (Spiriva Inh) 18 mcg DAILY INH 11/10/16 09:00 11/14/16 08:01 Pantoprazole Sodium (Protonix) 20 mg DAILY PO 11/10/16 09:00 11/14/16 08:03 Sodium Polystyrene Sulfonate (Kayexalate Liq) 15 gm BID PO 11/09/16 21:00 11/12/16 21:01 Azithromycin (Zithromax) 500 mg DAILY PO 11/11/16 09:00 11/14/16 08:03 Methylprednisolone Sodium Succinate (SoluMEDROL INJ) 40 mg Q12H IVP 11/11/16 22:00 11/14/16 08:03 Furosemide (Lasix) 40 mg DAILY PO 11/13/16 09:00 11/14/16 08:03 Hydralazine HCl (Apresoline) 25 mg Q8HR PRN PO SBP>160, DBP>90 11/13/16 12:00 11/14/16 01:28 Potassium Chloride (KCl) 30 meq Q12HR PO 11/13/16 21:00 11/14/16 08:03 (Maria Elena Alvarez) Physical Exam General General Appearance: No Acute Distress, Comfortable, Pale, Obese Appearance Remarks Obese (Maria Elena Alvarez) Eyes Eye Exam: Pupils Equal, Sclera White, Extraocular Movement Intact (Aurora, Maria Elena M. [employer]) Ears & Nose Ears & Nose Exam: Nasal Mucosa [place] (Maria Elena Alvarez. [employer]) Throat Throat Exam: Oral Mucosa [place] & Moist (Maria Elena Alvarez. [employer]) Neck Neck Exam: Neck Supple, Trachea Midline Neck Remarks Currently uses BiPAP, at night mostly (Maria Elena Alvarez. [employer]) Pulmonary Resp Exam: Breath Sounds Equal, No Distress, Crackles, Rhonchi, Diminished Breath Sounds (improved) (Maria Elena Alvarez. [employer]) Cardiology CV Exam: Regular, Normal Sinus Rhythm CV Remarks Rhythm now shows sinus, heart rate around 60s, bundle-branch block with few PACs and PVCs (Maria Elena Alvarez M. [employer]) Gastrointestinal/Abdomen GI Exam: Soft, Non-Tender, Bowel Sounds Present (Maria Elena Alvarez M. [employer]) Musculoskeletal MS Exam: Joints Intact, Atrophy (lower extremities) (Maria Elena Alvarez. [employer]) Integumentary Skin Exam: Warm, Dry (Maria Elena Alvarez. [employer]) Extremeties Extremities Exam: No Edema, Pedal Pulses Palpable (Maria Elena Alvarez M. [employer]) Neurologic Neuro Exam: Alert, Awake, Oriented, Speech Clear, Moving All Extremities Neuro Remarks Answers short answers appropriately, (Maria Elena Alvarez. [employer]) Psychiatric Psych Exam: Appropriate Responses (Maria Elena Alvarez M. [employer]) VTE Prophylaxis VTE Prophylaxis Device: SCDs (Maria Elena Alvarez M. [employer]) PUD Prophylasis PUD Prophylaxis: Protonix (Maria Elena Alvarez. [employer]) Assessment/Plan Assessment/Plan Respiratory failure, hypoxic, hypercarbic COPD exacerbation, Appreciate pulmonology in their expert opinion prn BiPAP, 5/10 with 40% FiO2, predominantly used at night, O2 per nasal cannula during the daytime only if SOB, rm air this am, moniotr DuoNeb's and IV steroids wean to PO Continues to strengthen, but still suffering with debility We will refused to get out of bed with PT. Went back and discussed with patient the need to be up out of bed at least 4 hours a day. Port of care Sepsis, possible sta IV antibiotics. ID following cultures redone, negative for urine for strep, Legionella pending 2-D echo ordered to eval heart valves Acute congestive heart failure, Resolved with active diuresis, room air for now We'll monitor his shortness of breath Patient has pacemaker, currently sinus rhythm , bundle branch block Appreciate cardiology input for her plan of care and expert opinion. 2D ECHO done shows aortic valve to have mild stenosis, mitral valve trace regurg , EF normal, no vegetation noted Acute on chronic kidney disease, noted worsening renal function nephrology consult to assist with plan of care, appreciated Monitor labs, medical management Possible secondary to his heart status Altered mental status, resolved, Neurology has been consulted, uro-workup in progress EEG Bowel regimen, patient have M OM this a.m., if no BM give Dulcolax suppository this p.m. Encourage by mouth fluids and patient encouraged to drink fruit juices Anemia, Probable secondary to chronic disease, monitor for any acute changes, currently 9 Type 2 diabetes, more controlled Continue with Accu-Cheks every 4 Sliding scale and IV fluids as needed, Hypertension patient is requiring when necessary Apresoline for his systolic hypertension. Will add a routine dose and monitor, Discharge planning, probable SNF, will discuss plans with case management for some. patient would discharge in the next day or 2. (Maria Elena Alvarez) Assessment/Plan Patient seen and examined as above Doing physical therapy Appreciate consultants input including pulmonary and nephrology Discussed with ADAN about plan of care Plan to discharge him back to his facility Discussed with insurance case manager about DC planning Discussed with RN Patient is off of BiPAP machine from November 10 as per RN Total time spent in DC planning of this patient is more than 45 minutes (Geetha Velasquez MD) Maria Elena Alvarez November 14, 2016 10:23 Geetha Velasquez MD November 14, 2016 11:36
[2016-11-14] MEDS ORDERED: MAGNESIUM HYDROXIDE SUSP 30 ML CUP PO PRN (10:30)
[2016-11-14] MEDS ORDERED: BISACODYL 10 MG SUPP RECTAL ONE (10:30)
[2016-11-14] MEDS ORDERED: PRED10 PO (11:42)
[2016-11-14] MEDS ORDERED: CEFT500T3 PO (11:42)
[2016-11-14] MEDS ORDERED: FURO40TA PO (11:42)
[2016-11-14] MEDS ORDERED: AZIT250T3 PO (11:42)
[2016-11-14] MEDS: HEPARIN SODIUM - SQ 10,000 UNITS/ML VIAL SQ SCH (12:17)
--- NOTE | 2016-11-14 14:25 | HHI.HCPN ---
Attempted to contact patient's friend, Eran Guerrier, via telephone in regards to the patient's decision to designate Mr. Guerrier as his HCS decision maker. Message left with Palliative Care contact information, awaiting return phone call. . (Margarita Frank) . Chart reviwed. Case discussed with palliative care PSYCHIATRY ADULT PHYSICIAN. Above PSYCHIATRY ADULT PHYSICIAN note reviewed and I concur. . (Robert Pizarro MD) Margarita Frank November 14, 2016 14:25 Robert Pizarro MD December 04, 2016 12:18
--- NOTE | 2016-11-14 14:46 | HHI.NPPN ---
Subjective Additional Remarks Patient is alert, alert denies complaints Objective Data Data 11/13/16 11/14/16 19:00 07:00 Intake Total 1200 ml 480 ml Output Total 1150 ml 700 ml Balance 50 ml -220 ml Intake Oral 600 ml 480 ml IV Total 600 ml Output Urine Total 1150 ml 700 ml # Bowel Movements 0 0 Vital Signs Date Time Temp Pulse Resp B/P Pulse Ox O2 Delivery O2 Flow Rate FiO2 11/14/16 11:56 97.6 58 20 156/69 95 11/14/16 11:29 97 11/14/16 08:20 Nasal Cannula 2.00 11/14/16 08:00 97.7 62 18 160/76 98 11/14/16 04:10 98.2 64 18 174/77 99 160/82 11/14/16 04:01 62 11/14/16 01:24 61 18 176/80 98 11/14/16 00:59 59 11/13/16 23:32 97.0 61 18 164/73 97 152/76 11/13/16 22:10 Room Air 2.00 11/13/16 19:32 97.9 63 18 149/66 96 11/13/16 16:00 98.5 75 16 162/69 95 -: 11/13/16 0734 11/14/16 0505 Physical Exam General Appearance: No Acute Distress, Comfortable, Pale, Obese Eyes Eye Exam: Pupils Equal, Sclera White, Extraocular Movement Intact Ears & Nose Ears & Nose Exam: Nasal Mucosa [place] Throat Throat Exam: Oral Mucosa [place] & Moist Neck Neck Exam: Neck Supple, Trachea Midline Pulmonary Resp Exam: Breath Sounds Equal, No Distress, Crackles, Rhonchi, Diminished Breath Sounds (improved) Cardiology CV Exam: Regular, Normal Sinus Rhythm Gastrointestinal/Abdomen GI Exam: Soft, Non-Tender, Bowel Sounds Present Musculoskeletal MS Exam: Joints Intact, Atrophy (lower extremities) Integumentary Skin Exam: Warm, Dry Extremeties Extremities Exam: No Edema, Pedal Pulses Palpable Neurologic Neuro Exam: Alert, Awake, Oriented, Speech Clear, Moving All Extremities Psychiatric Psych Exam: Appropriate Responses VTE Prophylaxis Device: SCDs PUD Prophylasis PUD Prophylaxis: Protonix Assessment/Plan Problem List: (1) Acute renal failure Plan: Patient is nonoliguric and has urine output. Lasix 40 mg given,K improved cr 1.6 pulmonary on ceftriaxone/Azithromycin Ultrasound of the kidney noted. CKD improved Cr declining non oliguric (2) CAD (coronary artery disease) Plan: History of cardiac arrest and stents (3) CHF (congestive heart failure) Plan: Patient is on BiPAP (4) COPD exacerbation Plan: On O2 and breathing treatment Problem Qualifiers (1) Acute renal failure: Qualified Code: N17.9 - Acute renal failure, unspecified acute renal failure type (2) CAD (coronary artery disease): Qualified Code: I25.118 - Coronary artery disease involving [place] coronary artery of [place] heart with other form of angina pectoris (3) CHF (congestive heart failure): Qualified Code: I50.9 - Acute on chronic congestive heart failure, unspecified congestive heart failure type Taylor Gold MD November 14, 2016 14:46
[2016-11-14] MEDS ORDERED: predniSONE 10 MG TAB PO SCH (21:00)
--- NOTE | 2016-12-24 16:38 | HHI.DS ---
Discharge Summary Admission Date November 08, 2016 at 22:12 Discharge Date: November 14, 2016 Admitting Diagnosis ARF, COPD exacerbation (1) Respiratory failure Diagnosis: Principal (2) Hypoxia Diagnosis: Principal (3) Recurrent UTI Diagnosis: Principal (4) Acute on chronic renal failure Diagnosis: Principal (5) CHF (congestive heart failure) Diagnosis: Principal (6) COPD exacerbation Diagnosis: Principal (7) Hyperkalemia Diagnosis: Principal (8) Anemia Diagnosis: Principal (9) Hyperlipidemia Diagnosis: Secondary (10) CAD (coronary artery disease) Diagnosis: Secondary (11) Obesity Diagnosis: Secondary (12) HTN (hypertension) Diagnosis: Secondary (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 Patient was sent to the emergency room from local [facility] for evaluation of cold symptoms. Per review of emergency room records, patient had complained of approximately 2 weeks of shortness of breath, wheezing, stuffy nose and congestion. At this time, patient was short of breath and is difficult to obtain detailed information. Patient was last admitted to [facility] for sepsis secondary to UTI. Prior to that, patient had an extensive hospitalization at same facility where he had a cardiac arrest requiring intubation. He also went into acute renal injury and was evaluated by nephrology. Was also found with GI bleed and required upper endoscopies and colonoscopy with findings of polyps and rectal ulcers.Prior to that, he was admitted for chest pain and was found with the blockage to the RCA and underwent stent. Imaging Last Impressions Chest X-Ray 11/10/16 0000 Signed Impressions: Service Date/Time: Thursday, November 10, 2016 12:36 - CONCLUSION: 1. There is a mild cardiomegaly. There is some prominence of the interstitium and central pulmonary arteries study could suggest some mild congestive failure. Other differential considerations would include chronic interstitial changes and pulmonary artery hypertension. Dc Hannah MD Carotid Artery Ultrasound 11/09/16 1424 Signed Impressions: Service Date/Time: Wednesday, November 09, 2016 17:28 - CONCLUSION: Very mild atherosclerotic plaque of the bilateral carotids. No significant narrowing. Walter Taylor MD Renal Ultrasound 11/09/16 Signed Impressions: Service Date/Time: Wednesday, November 09, 2016 17:51 - CONCLUSION: 1. Mildly prominent bilateral collecting systems, age and etiology uncertain. 2. Mild, chronic renal parenchymal disease suspected, nonspecific as to the underlying cause. 3. Cyst incidentally seen right lower pole. Walter Taylor MD Head CT 11/09/16 Signed Impressions: Service Date/Time: Wednesday, November 09, 2016 06:48 - CONCLUSION: 1. No acute findings. Mucosal thickening in the maxillary sinuses. Isidro Landeros MD PE at Discharge Obese Eyes Eye Exam: Pupils Equal, Sclera White, Extraocular Movement Intact Ears & Nose Ears & Nose Exam: Nasal Mucosa [facility] Throat Throat Exam: Oral Mucosa [facility] & Moist Neck Neck Exam: Neck Supple, Trachea Midline Neck Remarks Currently uses BiPAP, at night mostly Pulmonary Resp Exam: Breath Sounds Equal, No Distress, Crackles, Rhonchi, Diminished Breath Sounds (improved) Cardiology CV Exam: Regular, Normal Sinus Rhythm CV Remarks Rhythm now shows sinus, heart rate around 60s, bundle-branch block with few PACs and PVCs Gastrointestinal/Abdomen GI Exam: Soft, Non-Tender, Bowel Sounds Present Musculoskeletal MS Exam: Joints Intact, Atrophy (lower extremities) Integumentary Skin Exam: Warm, Dry Extremeties Extremities Exam: No Edema, Pedal Pulses Palpable Neurologic Neuro Exam: Alert, Awake, Oriented, Speech Clear, Moving All Extremities Neuro Remarks Answers short answers appropriately, Psychiatric Psych Exam: Appropriate Responses VTE Prophylaxis VTE Prophylaxis Device: SCDs PUD Prophylasis PUD Prophylaxis: Protonix Hospital Course Patient was evaluated in the emergency room, laboratory workup was completed. CBC was remarkable for hemoglobin of 8.6, hematocrit of 27 which appears to be his baseline. BMP was noted with worsening renal dysfunction, BUN 71, creatinine 4.84 and GFR of 12. He was noted hyperkalemic with potassium of 6.1. Urinalysis was positive for leukocyte esterase and bacteria. Chest x-ray shows prominence of central vessels which may represent some pulmonary venous hypertension, rk edema or consolidation was not seen. In the emergency room , patient received 500 cc fluid bolus. Hyperkalemia was treated with Kayexalate regular insulin D50 and bicarbonate. Empiric antibiotics were started. Overnight, blood glucose dropped to 37 and patient was put on dextrose solution. CT of the head completed was negative. ABGs were completed , pH 7.28 with PCO2 of 53. Patient is now examined, he's noted to With bibasilar Rales and expiratory wheezes. He's having difficulty completing sentences. BiPAP placement done and transferred to ICU. Lasix 20 mg IV push ordered. Patient knew he was in the hospital he knows the year have discuss plan of care and spoke to him about the possibility of requiring intubation and he was agreeable. Nurse was at bedside to witness conversation. Per review of medical records, patient was living by himself prior to hospitalizations, he has no friends and is estranged from his family. States that he has not spoken to his children in 18 years and has no POA. I reviewed medical records from correction facility and there is no advanced directives. Patient was admitted for further evaluation and treatment. These are the diagnoses that were used to treat this patient during this hospital stay and during the course of her plan of care Vital signs and labs were reviewed on a daily basis and treated according to their needs. Respiratory failure, hypoxic, hypercarbic COPD exacerbation, Appreciate pulmonology in their expert opinion prn BiPAP, 5/10 with 40% FiO2, predominantly used at night, O2 per nasal cannula during the daytime only if SOB, rm air this am, moniotr DuoNeb's and IV steroids wean to PO Continues to strengthen, but still suffering with debility Patient refused to get out of bed with PT. Went back and discussed with patient the need to be up out of bed at least 4 hours a day. Sepsis started on IV antibiotics. ID following an consult for this hospital course .cultures redone, negative for urine for strep, Legionella pending 2-D echo ordered to eval heart valves Acute congestive heart failure, Initial treatment was medications for active diuresis, required oxygen initially on admission but was able to transition to room air wants congestive heart failure was controlled We'll monitor his shortness of breath and any rhythm disturbances Patient has pacemaker, currently sinus rhythm , bundle branch block , monitored throughout course of stay Appreciate cardiology input for her plan of care and expert opinion. 2D ECHO done shows aortic valve to have mild stenosis, mitral valve trace regurg , EF normal, no vegetation noted Acute on chronic kidney disease, noted worsening renal function throughout hospital course nephrology consult to assist with plan of care, appreciated Monitor labs, medical management Possible secondary to his heart status. After medically stable will follow as outpatient Altered mental status, resolved, once patient's heart rhythm and didn't disease was stabilized Neurology has been consulted, uro-workup in progress EEG done Bowel regimen, patient have M OM this a.m., if no BM give Dulcolax suppository this p.m. Encourage by mouth fluids and patient encouraged to drink fruit juices Anemia, Probable secondary to chronic disease, monitor for any acute changes, currently 9 Type 2 diabetes, more controlled Continue with Accu-Cheks every 4 Sliding scale and IV fluids as needed, Hypertension patient is requiring when necessary Apresoline for his systolic hypertension. Will add a routine dose and monitor, Discharge planning, probable SNF, will discuss plans with case management Patient was seen per Dr. Velasquez, nodes include Doing physical therapy Appreciate consultants input including pulmonary and nephrology Discussed with PIGMENT AND [employer]ACQUER MIXER about plan of care Plan to discharge him back to his facility Discussed with case assistant about DC planning Discussed with RN Patient is off of BiPAP machine from November 10 as per RN Total time spent in DC planning of this patient is more than 45 minute It was felt patient was medically stable to return dyspnea and continued physical therapy if he will agree Pt Condition on Discharge: Good Discharge Disposition: Discharge to SNF Discharge Instructions DIET: Follow Instructions for: Diabetic Diet Activities you can perform: Weight Bearing as Essence Follow up Referrals: Nephrology - 1 Week PCP Follow-up - 2-3 Days Pulmonology - 2 Weeks SNF/[facility]/ with [facility] New Medications: Cefuroxime (Ceftin) 500 Mg Tab 500 MG PO BID Infection #10 Ref 0 TAB Azithromycin (Azithromycin) 250 Mg Tab 500 MG PO DAILY infection #4 TAB Furosemide (Furosemide) 40 Mg Tab 40 MG PO DAILY fluid retention #30 TAB Prednisone (Prednisone) 10 Mg Tab 10 MG PO BID inflammation #7 TAB Continued Medications: Acetaminophen (Tylenol) 325 Mg Cap 650 MG PO Q6H PRN BACK PAIN Ref 0 CAP Allopurinol (Allopurinol) 100 Mg Tab 100 MG PO DAILY Gout #30 Ref 0 TAB Atorvastatin (Atorvastatin) 40 Mg Tab 40 MG PO HS Cholesterol Management #30 Ref 0 TAB Calcium Carbonate-Cholecalciferol (Caltrate 600+D) 600-800 Mg-Unit Tab 1 TAB PO BID Calcium Supplement Ref 0 TAB Clopidogrel (Clopidogrel) 75 Mg Tab 75 MG PO DAILY Blood Clot Prevention #30 Ref 0 TAB Fluticasone-Vilanterol Inh (Breo Ellipta Inh) 100-25 Mcg/Act Inh 1 PUFF INH DAILY Use daily at the same time. #1 Ref 0 INHALER Insulin Aspart Inj (Novolog Flexpen Inj) 300 Unit/3 Ml Pen 1 UNITS SQ Blood Sugar Management #1 Ref 0 PEN Ipratropium-Albuterol Neb (Duoneb) 0.5-2.5 Mg/3 Ml Neb 1 NEBULE INH Q4HR NEB SHORTNESS OF BREATH #120 Ref 0 NEBULE Loperamide (Loperamide) 2 Mg Cap 2 MG PO TID One capsule after each loose stool. Not to exceed 8 capsules per day. PRN DIARRHEA Ref 0 CAP Melatonin (Gnp Melatonin) 3 Mg Tab Mirtazapine (Mirtazapine) 15 Mg Tab 15 MG PO HS Depression Control #30 Ref 0 TAB Multiple Vitamins W/ Minerals (Multivitamin Adult) 1 Chw Chw Omeprazole (Omeprazole) 20 Mg Tab 20 MG PO DAILY #30 Ref 0 TAB Polyethylene Glycol 3350 (Bulk (Polyethylene Glycol 3350) 1 [facility] Pow Potassium Chloride ER (Potassium Chloride ER) 20 Meq Tab 20 MEQ PO DAILY Electrolyte Replacement #30 Ref 0 TAB Skin Protectants, Misc. (Eucerin) 1 Cre Cre Tamsulosin (Tamsulosin) 0.4 Mg Cap 0.4 MG PO HS Manage Prostate Problems #30 Ref 0 CAP Tiotropium Inh (Spiriva Handihaler) 18 Mcg Cap 18 MCG INH DAILY 1 capsule = 18 mcg COPD #30 Ref 0 CAP Zinc Oxide (Topical) (Zinc Oxide) 20 % Oin Discontinued Medications: Digoxin (Digox) 0.125 Mg Tab 0.125 MG PO DAILY Regulate Heart Beat #30 Ref 0 TAB Furosemide (Lasix) 40 Mg Tab 40 MG PO BID #60 Ref 0 TAB Gabapentin (Gabapentin) 300 Mg Cap 300 MG PO BID #60 Ref 0 CAP Metoclopramide (Metoclopramide) 10 Mg Tab 10 MG PO DAILY Ref 0 TAB Metoclopramide HCl (Metoclopramide HCl) 1 Pow Pow Maria Elena Alvarez Dec 24, 2016 16:38
== END 2016-11-14 16:41 | DRG 190 ==
LOC: NEPC 20:14 → NEDA 22:12 → N04B 11-09 00:54 → N03A 11-09 10:47 → N04B 11-11 11:25
PROVIDERS: ADMIT Specialist; ATTEND Specialist
PROC: 5A09457 Assistance with Respiratory Ventilation, 24-96 Consecutive Hours, Continuous Positive Airway Pressure (ICD-10-PCS; principal; 2016-11-08)
DX: J44.1 Chronic obstructive pulmonary disease with (acute) exacerbation (principal); G93.41 Metabolic encephalopathy; J96.91 Respiratory failure, unspecified with hypoxia; N17.9 Acute kidney failure, unspecified; I13.0 Hypertensive heart and chronic kidney disease with heart failure and stage 1 through stage 4 chronic kidney disease, or unspecified chronic kidney disease; N39.0 Urinary tract infection, site not specified; I50.9 Heart failure, unspecified; N18.3 Chronic kidney disease, stage 3 (moderate); Z95.0 Presence of cardiac pacemaker; E11.22 Type 2 diabetes mellitus with diabetic chronic kidney disease; E78.5 Hyperlipidemia, unspecified; D64.9 Anemia, unspecified; M10.9 Gout, unspecified; G47.33 Obstructive sleep apnea (adult) (pediatric); I48.2 Chronic atrial fibrillation; I25.119 Atherosclerotic heart disease of native coronary artery with unspecified angina pectoris; E11.65 Type 2 diabetes mellitus with hyperglycemia; E87.6 Hypokalemia; I45.4 Nonspecific intraventricular block; N40.0 Benign prostatic hyperplasia without lower urinary tract symptoms; R47.02 Dysphasia; F03.90 Unspecified dementia, unspecified severity, without behavioral disturbance, psychotic disturbance, mood disturbance, and anxiety; E66.01 Morbid (severe) obesity due to excess calories; Z51.5 Encounter for palliative care; Z79.02 Long term (current) use of antithrombotics/antiplatelets; Z87.891 Personal history of nicotine dependence; Z95.5 Presence of coronary angioplasty implant and graft
CPT/HCPCS: 36600; 70450; 71010; 76775; 76937; 80048; 81001; 82140; 82550; 82607; 82728; 82746; 82805; 82948; 83540; 83550; 83605; 83735; 83880; 84100; 84132; 84425; 84439; 84443; 84484; 85025; 85027; 85044; 85610; 85652; 85730; 86140; 86403; 87040; 87077; 87086; 87186; 87205; 87449; 87641; 93005; 93306; 93880; 94002; 94003; 94640; 94664; 95819; 96374; J0610; J0696; J1644; J1815; J1940; J2405; J2930; J3475; J3480; J7030; J7040; J7042

== ENCOUNTER 2017-11-22 18:05 | Inpatient (IN) | payer MEDICARE, OTHER ==
[~2017-11-22] VITALS: Ht 182.9 cm; Wt 115.3 kg
[~2017-11-22 18:05] MED LIST changes: -DIGO0.127 PO; -FURO1TAB60 PO; -GABA300C5 PO; -GNP3TAB; +MELA1TAB33; -METO10TA PO; -METOPOW; -OMEP20TA PO; +OMEP20TA93 PO
[2017-11-22 18:17] VITALS: BP 140/91; PULSE 62; RESP 16; O2SAT 96
[2017-11-22 19:08] LABS: AMORPHOUS SEDIMENT, URINE MOD; BACTERIA, URINE MANY /hpf; BILIRUBIN, URINE NEG (NEG); BLOOD, URINE MOD (NEG); GLUCOSE,URINE NEG (NEG); KETONE, URINE NEG (NEG); NITRITE,URINE NEG (NEG); URINE COLOR LIGHT-YELLOW (YELLW/STRAW); URINE LEUKOCYTE ESTERASE LARGE (NEG); WHITE BLOOD CELL CLUMPS FEW
[2017-11-22 19:14] LABS: AUTOMATED NEUTROPHIL # 10.3 TH/MM3 (1.8-7.7); BASOPHIL # 0.1 TH/MM3 (0-0.2); BASOPHIL % 0.6 % (0.0-2.0); EOSINOPHIL # 0.5 TH/MM3 (0-0.4); HEMATOCRIT 27.1 % (39.0-51.0); HEMOGLOBIN 8.7 GM/DL (13.0-17.0); LYMPH % 4.6 % (9.0-44.0); LYMPHOCYTE # 0.6 TH/MM3 (1.0-4.8); MEAN CELL VOLUME 88.7 FL (80.0-100.0); MEAN CORPUSCULAR HEMOGLOBIN 28.4 PG (27.0-34.0); MEAN PLATELET VOLUME 5.6 FL (7.0-11.0); MONO % 6.8 % (0.0-8.0); MONOCYTE # 0.8 TH/MM3 (0-0.9); PLATELET COUNT 375 TH/MM3 (150-450); RED BLOOD COUNT 3.06 MIL/MM3 (4.50-5.90); RED CELL DISTRIBUTION WIDTH 15.5 % (11.6-17.2); WHITE BLOOD COUNT 12.3 TH/MM3 (4.0-11.0)
[2017-11-22] MEDS ORDERED: GABA100C4 PO (19:18)
[2017-11-22] MEDS ORDERED: NORC5TAB PO (19:18)
[2017-11-22] MEDS ORDERED: LOPE2CAP PO (19:18)
[2017-11-22] MEDS ORDERED: MILKSUS PO (19:18)
[2017-11-22] MEDS ORDERED: TAMS0.4C4 (19:18)
[2017-11-22] MEDS ORDERED: FERR325T18 PO (19:18)
[2017-11-22] MEDS ORDERED: DULO20 PO (19:18)
[2017-11-22] MEDS ORDERED: [UNRECOGNIZED DRUG - CODE] SQ (19:18)
[2017-11-22] MEDS ORDERED: [UNRECOGNIZED DRUG - OTHER] PO (19:18)
[2017-11-22] MEDS ORDERED: BACL10TA PO (19:18)
[2017-11-22] MEDS ORDERED: LISI-519 PO (19:18)
[2017-11-22] MEDS ORDERED: PLAV75TA29 PO (19:18)
[2017-11-22] MEDS ORDERED: CALTCHW5 PO (19:18)
--- NOTE | 2017-11-22 19:25 | PD ---
HPI Chief Complaint: Altered Mental Status Time Seen by Provider: 19:01 Travel History International Travel<30 days: No Contact w/Intl Traveler<30days: No Traveled to known affect area: No History of Present Illness HPI 77-year-old male presents to the emergency department via EMS from an [facility]. The patient does not answer any questions. Therefore, history is obtained from EMS and nursing record. According to these, the patient has been more confused over the past 24-48 hours. According to the nurse, he normally will talk and be conversational, but is now not talking. A few words he will say is slurred. He is also having repetitive seat and does not appear to be aware of his surroundings. Upon my exam, the patient would not answer any questions. He will not follow any commands. When asked if he has pain, he states yes, but will not tell me where. According to chart, patient has significant past medical history of CAD, CHF, COPD, chronic kidney disease stage III, GI bleed, status post cardiac arrest in 2016, stent March 2016, diabetes, pacemaker. Moderate severity. PFSH Past Medical History Anemia: Yes Atrial Fibrillation: Yes Heart Rhythm Problems: Yes (bradycardia, a fib ) Cardiovascular Problems: Yes (angina) Congestive Heart Failure: Yes COPD: Yes Dementia: Yes Diabetes: Yes Patient Takes Glucophage: No GERD: Yes (esophageal reflux) Gout: Yes Genitourinary: Yes (uti, obstructive and refkux uropathy ) Neurologic: Yes (dysphagia, restless leg ) Renal Failure: Yes (ckd) Past Surgical History Cholecystectomy: Yes Genitourinary Surgery: Yes (esophagus, hernia repair ) Social History Alcohol Use: No Tobacco Use: No Substance Use: No Allergies-Medications (Allergen,Severity, Reaction): Coded Allergies: Influenza Virus Vaccines (Unverified Allergy, Unknown, 02/19/17) cephalexin (Unverified Allergy, Unknown, 02/19/17) levofloxacin (Unverified Allergy, Unknown, 02/19/17) moxifloxacin (Unverified Allergy, Unknown, 02/19/17) Reported Meds & Prescriptions Reported Meds & Active Scripts Active Furosemide 40 Mg Tab 40 Mg PO DAILY Reported Tamsulosin (Tamsulosin HCl) 0.4 Mg Cap 0.4 Mg HS Plavix (Clopidogrel Bisulfate) 75 Mg Tab 75 Mg PO DAILY [place] (Hydrocodone-Acetaminophen) 5 Mg-325 Mg Tab 1 Tab PO Q4H PRN Actical (Multiple Vitamins W/ Minerals) 1 Cap 1 Cap PO DAILY Milk of Magnesia Liq (Magnesium Hydroxide) 400 Mg/5 Ml Susp 15 Ml PO DAILY PRN Loperamide (Loperamide HCl) 2 Mg Cap 2 Mg PO DIRECTED PRN One capsule after each loose stool. Not to exceed 8 capsules per day. Lisinopril 5 Mg Tab 5 Mg PO DAILY Gabapentin 100 Mg Cap 100 Mg PO TID Ferrous Sulfate 325 Mg (65 Mg Iron) Tablet 325 Mg PO BIDPC Procrit Inj (Epoetin Alex) 2,000 Unit/Ml Inj 2,000 Units SQ SATURDAY Cymbalta DR (Duloxetine HCl) 20 Mg Capdr 40 Mg PO DAILY Caltrate 600+D Chew (Calcium Carbonate-Vitamin D Chew) 600-400 Mg-Unit Chew 1 Tab PO BID Baclofen 10 Mg Tab 10 Mg PO TID Omeprazole 20 Mg Tab 20 Mg PO DAILY Novolog Flexpen Inj (Insulin Aspart) 300 Unit/3 Ml Pen 1 Units SQ Gnp Melatonin (Melatonin) 3 Mg Tab Duoneb (Ipratropium-Albuterol Neb) 0.5-2.5 Mg/3 Ml Neb 1 Nebule INH Q4HR NEB Breo Ellipta Inh (Fluticasone/Vilanterol) 100-25 Mcg/Act Inh 1 Puff INH DAILY Use daily at the same time. Atorvastatin (Atorvastatin Calcium) 40 Mg Tab 40 Mg PO HS Allopurinol 100 Mg Tab 100 Mg PO DAILY Review of Systems Except as stated in HPI: all other systems reviewed are Neg Physical Exam Narrative GENERAL: Well-nourished, well-developed elderly male patient, afebrile. SKIN: Focused skin assessment warm/dry. HEAD: Normocephalic. Atraumatic. ENT: Mucosa pink and moist. No erythema or exudates. No uvular edema. No uvular , palatal, or tonsillar deviation. Airway patent. Nasal turbinates appear normal without nasal blood, purulent drainage or septal hematoma. Bilateral tympanic membranes clear without erythema or perforation. EYES: No scleral icterus. No injection or drainage. NECK: Supple, trachea midline. No JVD or lymphadenopathy. CARDIOVASCULAR: Regular rate and rhythm without murmurs, gallops, or rubs. RESPIRATORY: Breath sounds equal bilaterally. No accessory muscle use. Lung sounds are clear to auscultation peer GASTROINTESTINAL: Abdomen soft, non-tender, nondistended. MUSCULOSKELETAL: No cyanosis, or edema. BACK: Nontender without obvious deformity. No CVA tenderness. Data Data Last Documented VS Vital Signs Date Time Temp Pulse Resp B/P (MAP) Pulse Ox O2 Delivery O2 Flow Rate FiO2 11/22/17 21:01 68 18 168/96 (120) 100 Nasal Cannula 2.00 Orders Orders Blood Glucose (11/22/17 18:35) Oximetry (11/22/17 18:35) Iv Access Insert/Monitor (11/22/17 18:35) Ecg Monitoring (11/22/17 18:35) Oxygen Administration (11/22/17 18:35) Complete Blood Count With Diff (11/22/17 18:35) Lactic Acid (11/22/17 18:35) Basic Metabolic Panel (Bmp) (11/22/17 18:35) Coag Profile (11/22/17 18:35) Urinalysis - C+S If Indicated (11/22/17 18:48) Electrocardiogram (11/22/17 19:07) Ammonia (11/22/17 19:07) Creatine Kinase (Cpk) (11/22/17 19:07) Troponin I (11/22/17 19:07) Chest, Single Ap (11/22/17 19:07) Ct Brain W/O Iv Contrast(Rout) (11/22/17 19:07) Sodium Chloride 0.9% Flush (Ns Flush) (11/22/17 19:15) Hepatic Functional Panel (11/22/17 19:07) Magnesium (Mg) (11/22/17 19:07) Urine Culture (11/22/17 18:43) Blood Culture (11/22/17 19:26) Potassium, Serum (K) (11/22/17 19:44) Sodium Chlor 0.9% 1000 Ml Inj (Ns 1000 M (11/22/17 20:30) Sodium Chlor 0.9% 1000 Ml Inj (Ns 1000 M (11/22/17 20:30) Calcium Gluconate Inj (Calcium Gluconate (11/22/17 20:30) Insulin Human Regular Inj (Novolin R Inj (11/22/17 20:30) Dextrose 50% In Sorin (Vial) Inj (D50w (Vi (11/22/17 20:30) Sodium Bicarbonate 8.4% Inj (Sodium Bica (11/22/17 20:30) Piperacil-Tazo 2.25 Gm Premix (Zosyn 2.2 (11/22/17 20:30) Comprehensive Metabolic Panel (11/22/17 21:34) Admit Order (Ed Use Only) (11/22/17 21:36) Labs Laboratory Tests Test 11/22/17 18:43 11/22/17 19:38 White Blood Count 12.3 TH/MM3 Red Blood Count 3.06 MIL/MM3 Hemoglobin 8.7 GM/DL Hematocrit 27.1 % Mean Corpuscular Volume 88.7 FL Mean Corpuscular Hemoglobin 28.4 PG Mean Corpuscular Hemoglobin Concent 32.0 % Red Cell Distribution Width 15.5 % Platelet Count 375 TH/MM3 Mean Platelet Volume 5.6 FL Neutrophils (%) (Auto) 84.0 % Lymphocytes (%) (Auto) 4.6 % Monocytes (%) (Auto) 6.8 % Eosinophils (%) (Auto) 4.0 % Basophils (%) (Auto) 0.6 % Neutrophils # (Auto) 10.3 TH/MM3 Lymphocytes # (Auto) 0.6 TH/MM3 Monocytes # (Auto) 0.8 TH/MM3 Eosinophils # (Auto) 0.5 TH/MM3 Basophils # (Auto) 0.1 TH/MM3 CBC Comment DIFF FINAL Differential Comment Prothrombin Time 10.9 SEC Prothromb Time International Ratio 1.1 RATIO Activated Partial Thromboplast Time 34.5 SEC Urine Color LIGHT-YELLOW Urine Turbidity CLOUDY Urine pH 7.0 Urine Specific [place] 1.016 Urine Protein 100 mg/dL Urine Glucose (UA) NEG mg/dL Urine Ketones NEG mg/dL Urine Occult Blood MOD Urine Nitrite NEG Urine Bilirubin NEG Urine Urobilinogen LESS THAN 2.0 MG/DL Urine Leukocyte Esterase LARGE Urine RBC 35 /hpf Urine WBC /hpf Urine WBC Clumps FEW Urine Amorphous Sediment MOD Urine Bacteria MANY /hpf Microscopic Urinalysis Comment CATH-CULTURE IND Blood Urea Nitrogen 49 MG/DL Creatinine 3.39 MG/DL Random Glucose 121 MG/DL Calcium Level 9.4 MG/DL Sodium Level 134 MEQ/L Potassium Level 7.0 MEQ/L 7.2 MEQ/L Chloride Level 103 MEQ/L Carbon Dioxide Level 25.2 MEQ/L Anion Gap 6 MEQ/L Estimat Glomerular Filtration Rate 18 ML/MIN Lactic Acid Level 0.9 mmol/L Magnesium Level 2.4 MG/DL Total Bilirubin 0.2 MG/DL Direct Bilirubin 0.1 MG/DL Indirect Bilirubin 0.1 MG/DL Aspartate Amino Transf (AST/SGOT) 16 U/L Alanine Aminotransferase (ALT/SGPT) 20 U/L Alkaline Phosphatase 94 U/L Total Creatine Kinase 43 U/L Troponin I LESS THAN 0.02 NG/ML Total Protein 7.9 GM/DL Albumin 2.4 GM/DL Ammonia 19 [facility]/L [facility] Medical Decision Making Medical Screen Exam Complete: Yes Emergency Medical Condition: Yes 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 Reviewed: Yes Interpretation(s) Last Impressions Head CT 11/22/[id number] Signed Impressions: Service Date/Time: Wednesday, November 22, 2017 19:57 - CONCLUSION: 1. No acute abnormality seen. 2. Mild atrophy. Walter White MD Chest X-Ray [id number]/22/[id number] Signed Impressions: Service Date/Time: Wednesday, November 22, 2017 19:13 - CONCLUSION: No acute disease. Walter White MD Differential Diagnosis Intracranial abnormality versus UTI versus sepsis versus electrolyte abnormality versus dehydration versus CVA Narrative Course 77-year-old male presents to the emergency department for altered mental status for the past 24-48 hours from nursing facility. Patient does not contribute to history or physical. EKG, CBC, CMP, magnesium, CK, troponin, ammonia, lactic acid, coag profile, blood cultures 2, UA are ordered and pending. CT of the brain and chest x-ray are ordered and pending. EKG shows electronic atrial pacemaker, heart rate 61. CBC shows leukocytosis 12.3. CMP shows hyperkalemia 7.2, BUN 49, creatinine 3.39, glucose 121. Magnesium is 2.4. CK is 43. Troponin is less than 0.02. Ammonia is 19. Lactic acid is 0.9. Coags show no acute abnormality. UA shows moderate occult blood, large leukocyte esterase, 35 RBC, innumerable WBC, few WBC clumps. CT of the brain shows no acute abnormality. Chest x-ray shows no acute disease. Patient is given normal saline 2 L IV bolus, sodium bicarb 1 amp IV, 1 amp of dextrose, 10 units IV regular insulin, 1 g calcium gluconate after IV fluids. Patient started on Zosyn 2.[address] Watson, stain sprayer, accepted admission. He would like nephrology notified. I spoke to Dr. Lima, airline ticket agent, who would like renal ultrasound placed. Order is placed. Sepsis Criteria SIRS Criteria (2 or more): WBC > 98977, < 4000 or > 10% bands Diagnosis Primary Impression: Acute renal failure Qualified Codes: N17.9 - Acute kidney failure, unspecified Additional Impressions: Altered mental status Qualified Codes: R41.82 - Altered mental status, unspecified UTI (urinary tract infection) Qualified Codes: N39.0 - Urinary tract infection, site not specified; R31.9 - Hematuria, unspecified Hyperkalemia Admitting Information Admitting Physician Requests: Maria De Jesus Story November 22, 2017 19:25
[2017-11-22 19:29] LABS: INTERNATIONAL NORMALIZED RATIO 1.1 RATIO; PROTHROMBIN TIME - PATIENT 10.9 SEC (9.8-11.6)
[2017-11-22 19:32] VITALS: BP 180/75; PULSE 72; RESP 17; O2SAT 99
[2017-11-22 19:39] LABS: BICARBONATE 25.2 MEQ/L (21.0-32.0); CALCIUM 9.4 MG/DL (8.5-10.1); CREATININE 3.39 MG/DL (0.60-1.30)
--- NOTE | 2017-11-22 20:18 | RADRPT ---
EXAM DATE/TIME: 11/22/2017 19:13 [facility] COMPARISON: CHEST SINGLE AP, November 10, 2016, 12:36. INDICATIONS : Syncope. MEDICAL HISTORY : Gastroesophageal reflux disease. Chronic obstructive pulmonary disease. Congestive heart failure. Mary b. Bradycardia. Chronic renal disease. Gout. Diabetes. Anemia. Blood transfusion. Restless leg syndro me. Reflux uropathy. Benign prostatic hypertrophy. SURGICAL HISTORY : Cholecystectomy. Esophagus surgery. Hernia repair. Right foot surgery. Left knee surgery. Shoulder camacho rgery. ENCOUNTER: Initial ACUITY: 1 day PAIN SCORE: Non-responsive. LOCATION: Bilateral chest FINDINGS: There is a bilead pacing device seen over the right chest. The patient is rotated towards the right. The heart size is grossly normal. The lungs are grossly clear. There is some tubing overlying the lef t chest. Surgical fasteners are seen at the left humerus. There is absence of the distal left clavicl e. CONCLUSION: No acute disease. Walter White MD on November 22, 2017 at 20:15 Board Certified Radiologist. This report was verified electronically.
[2017-11-22 20:20] LABS: ALBUMIN 2.4 GM/DL (3.4-5.0); ALT (GPT) 20 U/L (12-78); AST (GOT) 16 U/L (15-37); DIRECT BILIRUBIN ADULT 0.1 MG/DL (0.0-0.2); MAGNESIUM 2.4 MG/DL (1.5-2.5)
[2017-11-22 20:24] LABS: ALKALINE PHOSPHATASE 94 U/L (45-117); INDIRECT BILIRUBIN 0.1 MG/DL (0.0-0.8); TOTAL BILIRUBIN ADULT 0.2 MG/DL (0.2-1.0); TOTAL PROTEIN 7.9 GM/DL (6.4-8.2); TROPONIN I LESS THAN 0.02 NG/ML (0.02-0.05)
[2017-11-22] MEDS ORDERED: CALCIUM GLUCONATE 10% 1 GM/10 ML VIAL SLOW IVP ONE (20:30)
[2017-11-22] MEDS ORDERED: PIPERACIL-TAZO 2.25 GM PREMIX 50 ML IV ONE (20:30)
[2017-11-22] MEDS ORDERED: SODIUM CHLOR 0.9% 1000 ML INJ 1,000 ML IV ONE ×2 (20:30)
[2017-11-22] MEDS ORDERED: SODIUM BICARBONATE 8.4% SOLN 50 MEQ/50 ML VIAL SLOW IVP ONE (20:30)
[2017-11-22] MEDS ORDERED: INSULIN HUMAN REGULAR 1,000 UNITS/10 ML VIAL IV PUSH ONE (20:30)
[2017-11-22] MEDS ORDERED: DEXTROSE 50% IN WATER 50 ML VIAL(D50) IV PUSH ONE (20:30)
[2017-11-22 21:01] VITALS: BP 168/96; PULSE 68; RESP 18; O2SAT 100
--- NOTE | 2017-11-22 21:08 | RADRPT ---
EXAM DATE/TIME: 11/22/2017 19:57 [facility] COMPARISON: CT BRAIN W/O CONTRAST, November 09, 2016, 6:48. INDICATIONS : Altered mental status. RADIATION DOSE: 56.35 CTDIvol (mGy) MEDICAL HISTORY : Dementia. Cardiovascular disease SURGICAL HISTORY : None. ENCOUNTER: Initial ACUITY: 1 day PAIN SCALE: 0/10 LOCATION: cranial TECHNIQUE: Multiple contiguous axial images were obtained of the head. Using automated exposure control and adj ustment of the mA and/or kV according to patient size, radiation dose was kept as low as reasonably a chievable to obtain optimal diagnostic quality images. DICOM format image data is available electro nically for review and comparison. FINDINGS: CEREBRUM: The ventricles are normal for age. There is mild sulcal widening. No evidence of midline shift, mass lesion, hemorrhage or acute infarction. No extra-axial fluid collections are seen. POSTERIOR FOSSA: The cerebellum and brainstem are intact. The 4th ventricle is midline. The cerebellopontine angle i s unremarkable. EXTRACRANIAL: The visualized portion of the orbits is intact. SKULL: The calvaria is intact. No evidence of skull fracture. CONCLUSION: 1. No acute abnormality seen. 2. Mild atrophy. Walter White MD on November 22, 2017 at 21:05 Board Certified Radiologist. This report was verified electronically.
[2017-11-22] MEDS ORDERED: CHLORHEXIDINE GLUCONATE 2 % 1 PACK (2 CLOTHS) TOP PRN (21:45)
[2017-11-22] MEDS ORDERED: NURSING INFORMATION XX SCH (21:45)
[2017-11-22] MEDS ORDERED: RESP: ALBUTEROL 2.5 MG/IPRATROPIUM 0.5 MG NEB (PRN) INH (21:45)
[2017-11-22 21:51] VITALS: O2SAT 97
[2017-11-22] MEDS ORDERED: VANCOMYCIN INJ 1,000 MG in SODIUM CHLOR 0.9% 250 ML INJ 250 ML IV ONE (22:00)
[2017-11-22] MEDS: HEPARIN SODIUM - SQ 10,000 UNITS/ML VIAL SQ SCH (22:37)
[2017-11-22] MEDS: SODIUM CHLOR 0.9% 1000 ML INJ 1,000 ML IV SCH (22:37)
--- NOTE | 2017-11-22 22:40 | HHI.HP ---
HPI Service Critical Care Medicine Primary Care Physician Unknown Admission Diagnosis Hyperkalemia, acute renal failure, UTI, AMS Diagnosis: (1) Altered mental status Diagnosis: Principal (2) UTI (urinary tract infection) Diagnosis: Principal (3) Acute on chronic renal failure Diagnosis: Principal (4) Hyperkalemia Diagnosis: Principal (5) Acute metabolic encephalopathy Diagnosis: Principal (6) HTN (hypertension) Diagnosis: Secondary (7) Obesity Diagnosis: Secondary (8) CHF (congestive heart failure) Diagnosis: Secondary (9) CAD (coronary artery disease) Diagnosis: Secondary Chief Complaint: Altered mental status Hyperkalemia Travel History International Travel<30 Days: No Contact w/Intl Traveler <30 Da: No Traveled to Known Affected Are: No Sepsis Criteria SIRS Criteria (2 or more): WBC > 37272, < 4000 or > 10% bands Sepsis Criteria (SIRS+source): Infect source susp/known Severe Sepsis (+one): Acute Oliguria/Renal Failure Criteria Outcome: Meets severe sepsis criteria History of Present Illness 77-year-old male with past medical history of CAD, CHF, COPD, chronic kidney disease stage III, GI bleed, cardiac arrest in 2017, diabetes, pacemaker placement who was brought to the emergency department from [facility] for altered mentation. Patient usually is communicative but last 24-48 hours had been confused and more lethargic somnolent. A CT of the head in the ER was negative for any acute findings as well as chest x-ray was also negative. CBC shows leukocytosis 12.3. CMP showed K 7.2, BUN 49, creatinine 3.39. Patient has a chronic Yang and history of recurrent UTI. UA shows moderate occult blood, large leukocyte esterase, innumerable WBC, indicating severe UTI and urosepsis. In the ED patient received 2 L normal saline bolus, and for hyperkalemia treatment received sodium bicarb 1 amp IV, 1 amp of dextrose, 10 units IV regular insulin, 1 g calcium gluconate after IV fluids. Patient started on Zosyn 2.25 g for UTI. I evaluated the patient in the ED. He is lethargic but wakes up to sternal rub. States his name follows commands but falls right back to sleep. His metabolic encephalopathy secondary to his sepsis. Cultures have been drawn I will continue Zosyn, give 1 dose of vancomycin. He is protecting airway and does not need the patient at this time. Stat repeat CMP ordered Review of Systems ROS Limitations: Altered Mental Status Past Family Social History Allergies: Coded Allergies: Influenza Virus Vaccines (Unverified Allergy, Unknown, 02/19/17) cephalexin (Unverified Allergy, Unknown, 02/19/17) levofloxacin (Unverified Allergy, Unknown, 02/19/17) moxifloxacin (Unverified Allergy, Unknown, 02/19/17) Past Medical History Coronary artery disease, stent to RCA 90 03/27/16 Recurrent UTI Chronic Yang catheter GI bleed CKD stage III Gout Anemia COPD CHF Obesity Hypertension Hyperlipidemia Diabetes Past Surgical History Toe amputation Arthroscopy Feeding tube insertion Esophageal surgery Cardiac catheter with stent to RCA 90 03/27/16 Upper and lower endoscopy with findings of polyps and rectal ulcer Reported Medications Tamsulosin (Tamsulosin HCl) 0.4 Mg Cap 0.4 Mg HS Plavix (Clopidogrel Bisulfate) 75 Mg Tab 75 Mg PO DAILY [place] (Hydrocodone-Acetaminophen) 5 Mg-325 Mg Tab 1 Tab PO Q4H PRN Actical (Multiple Vitamins W/ Minerals) 1 Cap 1 Cap PO DAILY Milk of Magnesia Liq (Magnesium Hydroxide) 400 Mg/5 Ml Susp 15 Ml PO DAILY PRN Loperamide (Loperamide HCl) 2 Mg Cap 2 Mg PO DIRECTED PRN Lisinopril 5 Mg Tab 5 Mg PO DAILY Gabapentin 100 Mg Cap 100 Mg PO TID Ferrous Sulfate 325 Mg (65 Mg Iron) Tablet 325 Mg PO BIDPC Procrit Inj (Epoetin Alex) 2,000 Unit/Ml Inj 2,000 Units SQ SATURDAY Cymbalta DR (Duloxetine HCl) 20 Mg Capdr 40 Mg PO DAILY Caltrate 600+D Chew (Calcium Carbonate-Vitamin D Chew) 600-400 Mg-Unit Chew 1 Tab PO BID Baclofen 10 Mg Tab 10 Mg PO TID Omeprazole 20 Mg Tab 20 Mg PO DAILY Novolog Flexpen Inj (Insulin Aspart) 300 Unit/3 Ml Pen 1 Units SQ Gnp Melatonin (Melatonin) 3 Mg Tab Duoneb (Ipratropium-Albuterol Neb) 0.5-2.5 Mg/3 Ml Neb 1 Nebule INH Q4HR NEB Breo Ellipta Inh (Fluticasone/Vilanterol) 100-25 Mcg/Act Inh 1 Puff INH DAILY Atorvastatin (Atorvastatin Calcium) 40 Mg Tab 40 Mg PO HS Allopurinol 100 Mg Tab 100 Mg PO DAILY Active Ordered Medications Reviewed Family History Unable to obtain due to altered mental status Social History Unable to obtain but from previous history patient was a prior smoker Physical Exam Vital Signs Vital Signs Date Time Temp Pulse Resp B/P (MAP) Pulse Ox O2 Delivery O2 Flow Rate FiO2 11/22/17 21:51 97 11/22/17 21:01 68 18 168/96 (120) 100 Nasal Cannula 2.00 11/22/17 19:32 72 17 180/75 (110) 99 Nasal Cannula 2.00 11/22/17 18:17 62 16 140/91 (107) 96 11/22/17 18:17 60 20 97 Nasal Cannula 2.00 11/22/17 18:17 97 Nasal Cannula 2.00 Physical Exam GENERAL: Well-nourished, well-developed elderly male patient, somnolent, lethargic SKIN: Skin warm/dry. HEAD: Normocephalic. Atraumatic. ENT: Oral mucosa dry, airway patent. EYES: No scleral icterus. No injection or drainage. NECK: Supple, trachea midline. No JVD or lymphadenopathy. CARDIOVASCULAR: Regular rate and rhythm without murmurs, gallops, or rubs. RESPIRATORY: Breath sounds equal bilaterally. No accessory muscle use. GASTROINTESTINAL: Abdomen soft, non-tender, nondistended. Obese with multiple well healed scars MUSCULOSKELETAL: No cyanosis, or edema. s/p right big toe amputation NEURO: Patient is somnolent and lethargic. Wakes up to sternal rub, and follows commands in all 4 extremities briefly. Falls right back in the sleep Laboratory Laboratory Tests Test 11/22/17 18:43 11/22/17 19:38 White Blood Count 12.3 Red Blood Count 3.06 Hemoglobin 8.7 Hematocrit 27.1 Mean Corpuscular Volume 88.7 Mean Corpuscular Hemoglobin 28.4 Mean Corpuscular Hemoglobin Concent 32.0 Red Cell Distribution Width 15.5 Platelet Count 375 Mean Platelet Volume 5.6 Neutrophils (%) (Auto) 84.0 Lymphocytes (%) (Auto) 4.6 Monocytes (%) (Auto) 6.8 Eosinophils (%) (Auto) 4.0 Basophils (%) (Auto) 0.6 Neutrophils # (Auto) 10.3 Lymphocytes # (Auto) 0.6 Monocytes # (Auto) 0.8 Eosinophils # (Auto) 0.5 Basophils # (Auto) 0.1 CBC Comment DIFF FINAL Differential Comment Prothrombin Time 10.9 Prothromb Time International Ratio 1.1 Activated Partial Thromboplast Time 34.5 Urine Color LIGHT-YELLOW Urine Turbidity CLOUDY Urine pH 7.0 Urine Specific [place] 1.016 Urine Protein 100 Urine Glucose (UA) NEG Urine Ketones NEG Urine Occult Blood MOD Urine Nitrite NEG Urine Bilirubin NEG Urine Urobilinogen LESS THAN 2.0 Urine Leukocyte Esterase LARGE Urine RBC 35 Urine WBC Urine WBC Clumps FEW Urine Amorphous Sediment MOD Urine Bacteria MANY Microscopic Urinalysis Comment CATH-CULTURE IND Blood Urea Nitrogen 49 Creatinine 3.39 Random Glucose 121 Calcium Level 9.4 Sodium Level 134 Potassium Level 7.0 7.2 Chloride Level 103 Carbon Dioxide Level 25.2 Anion Gap 6 Estimat Glomerular Filtration Rate 18 Lactic Acid Level 0.9 Magnesium Level 2.4 Total Bilirubin 0.2 Direct Bilirubin 0.1 Indirect Bilirubin 0.1 Aspartate Amino Transf (AST/SGOT) 16 Alanine Aminotransferase (ALT/SGPT) 20 Alkaline Phosphatase 94 Total Creatine Kinase 43 Troponin I LESS THAN 0.02 Total Protein 7.9 Albumin 2.4 Ammonia 19 Date/Time Source Procedure Growth Status 11/22/17 20:50 Blood Peripheral Aerobic Blood Culture Pending Received 11/22/17 20:50 Blood Peripheral Anaerobic Blood Culture Pending Received 11/22/17 18:43 Urine Catheterized Urine Urine Culture Pending Received Result Diagram: 11/22/17 [id number] Imaging CT of the head and chest x-ray shows no acute disease Septic Shock Reassessment Septic shock perfusion: reassessment completed Caprini VTE Risk Assessment Caprini VTE Risk Assessment: Mod/High Risk (score >= 2) Caprini Risk Assessment Model Point Value = 1 Point Value = 2 Point Value = 3 Point Value = 5 Age 41-60 Minor surgery BMI > 25 kg/m2 Swollen legs Varicose veins or History of unexplained or recurrent spontaneous Oral contraceptives or hormone replacement Sepsis (< 1 month) Serious lung disease, including pneumonia (< 1 month) Abnormal pulmonary function Acute myocardial infarction Congestive heart failure (< 1 month) History of inflammatory bowel disease Medical patient at bed rest Age 61-74 Arthroscopic surgery Major open surgery (> 45 min) Laparoscopic surgery (> 45 min) Malignancy Confined to bed (> 72 hours) Immobilizing plaster cast Central venous access Age >= 75 History of VTE Family history of VTE Factor V Leiden Prothrombin [id number] Lupus anticoagulant Anticardiolipin antibodies Elevated serum homocysteine Heparin-induced thrombocytopenia Other congenital or acquired thrombophilia Stroke (< 1 month) Elective arthroplasty Hip, pelvis, or leg fracture Acute spinal cord injury (< 1 month) Prophylaxis Regimen Total Risk Factor Score Risk Level Prophylaxis Regimen 0-1 Low Early ambulation 2 Moderate Order ONE of the following: *Sequential Compression Device (SCD) *Heparin 5000 units SQ BID 3-4 Higher Order ONE of the following medications: *Heparin 5000 units SQ TID *Enoxaparin/Lovenox 40 mg SQ daily (WT < 150 kg, CrCl > 30 mL/min) *Enoxaparin/Lovenox 30 mg SQ daily (WT < 150 kg, CrCl > 10-29 mL/min) *Enoxaparin/Lovenox 30 mg SQ BID (WT < 150 kg, CrCl > 30 mL/min) AND/OR *Sequential Compression Device (SCD) 5 or more Highest Order ONE of the following medications: *Heparin 5000 units SQ TID (Preferred with Epidurals) *Enoxaparin/Lovenox 40 mg SQ daily (WT < 150 kg, CrCl > 30 mL/min) *Enoxaparin/Lovenox 30 mg SQ daily (WT < 150 kg, CrCl > 10-29 mL/min) *Enoxaparin/Lovenox 30 mg SQ BID (WT < 150 kg, CrCl > 30 mL/min) AND *Sequential Compression Device (SCD) Assessment and Plan Assessment and Plan NEURO: Acute metabolic encephalopathy -Altered mentation is secondary to severe sepsis from UTI -Hold any sedating medications -Watch closely for airway protection -Hold Crawford, hold Neurontin, Cymbalta RESP: History of COPD -Nasal cannula oxygen to keep SaO2 >90% -DuoNeb every 4 hours scheduled and as needed -Continue Breo Ellipta CV: History of coronary artery disease History of cardiac arrest -Normal saline IV fluids 2L bous and 84 ml per hour -2d echo last year showed EF 60% -Hold lisinopril hold statins due to worsening renal failure, continue Plavix GI: -Keep n.p.o. until mental status improves -IV famotidine /ENDO: Acute on chronic kidney disease Hyperkalemia Type 2 diabetes -Monitor renal function closely. Replace Yang catheter. -Patient received bicarb, calcium gluconate, insulin IV push followed by D50 for treatment of hyperkalemia -Give Kayexalate 30 g 1 and DuoNeb breathing treatments 1 now -Nephrology consulted and Dr. Lima notified -Renal ultrasound -Sliding scale insulin -Further workup per nephrology ID: UTI Severe sepsis -Follow-up on blood and urine culture -IV vancomycin 1 GM x1 and continue Zosyn. HEME: -Monitor CBC, CMP PROPH: -Bilateral lower extremity SCDs. Sq Heparin/ IV Famotidine LINES: -Utilize peripheral IVs, central line if needed CC time 52 min Code Status Full Discussed Condition With ED SIZE WORKER, bedside RN Problem Qualifiers (1) Altered mental status: Qualified Codes: R41.82 - Altered mental status, unspecified (2) UTI (urinary tract infection): Qualified Codes: N39.0 - Urinary tract infection, site not specified; R31.9 - Hematuria, unspecified Sally Watson MD November 22, 2017 22:40
[2017-11-22] MEDS ORDERED: RESP: ALBUTEROL 2.5 MG/IPRATROPIUM 0.5 MG NEB (SCH) NEB ONE (22:45)
[2017-11-22] MEDS ORDERED: SODIUM POLYSTYRENE SULFONATE SUSP 15 GM/60 ML CUP PO ONE (22:45)
[2017-11-22] MEDS: INSULIN ASPART SUPPLEMENTAL SCALE SQ SCH (23:00)
[2017-11-22] MEDS: RESP: ALBUTEROL 2.5 MG/IPRATROPIUM 0.5 MG NEB (SCH) INH (23:03)
[2017-11-22 23:06] VITALS: BP 166/72; PULSE 64; RESP 18; TEMP 98.1; O2SAT 100
--- NOTE | 2017-11-22 23:17 | RADRPT ---
EXAM DATE/TIME: 11/22/2017 21:58 [place] COMPARISON: No previous studies available for comparison. EXTERNAL COMPARISON : [facility], [facility] PELVIS W/O C ONTRAST, September 27, 2017. INDICATIONS : Increased BUN/Creatinine. MEDICAL HISTORY : Gastroesophageal reflux disease. Chronic obstructive pulmonary disease. Congestive heart failure. Mary b. Bradycardia. Chronic renal disease. Gout. Diabetes. Anemia. Blood transfusion. Restless leg syndro me. Reflux uropathy. Benign prostatic hypertrophy. SURGICAL HISTORY : Cholecystectomy. Esophagus surgery. Hernia repair. Right foot surgery. Left knee surgery. Shoulder camacho rgery. ENCOUNTER: Subsequent ACUITY: 2 months PAIN SCORE: Nonresponsive. LOCATION: Bilateral flank MEASUREMENTS: RIGHT KIDNEY: 11.9 x 5.9 x 5.7 cm LEFT KIDNEY: 10.7 x 5.7 x 5.4 cm FINDINGS: Increased renal echogenicity characteristic of medical renal disease. Moderate bilateral hydronephros is. Left ureter is dilated throughout its course to the level of the bladder right ureter not clearly mely ntified. 2.2 cm cyst upper pole right kidney. Dependent debris within the bladder. CONCLUSION: 1. Moderate bilateral hydronephrosis with left ureter dilated throughout its course. 2. Small amount of bladder debris. 3. Increased renal echogenicity characteristic of medical renal disease. Isidro Landeros MD on November 22, 2017 at 23:14 Board Certified Radiologist. This report was verified electronically.
[2017-11-22 23:46] LABS: ALBUMIN 2.3 GM/DL (3.4-5.0); ALKALINE PHOSPHATASE 90 U/L (45-117); ALT (GPT) 19 U/L (12-78); AST (GOT) 13 U/L (15-37); BICARBONATE 24.4 MEQ/L (21.0-32.0); BLOOD UREA NITROGEN 46 MG/DL (7-18); CALCIUM 9.1 MG/DL (8.5-10.1); CHLORIDE 108 MEQ/L (98-107); CREATININE 3.18 MG/DL (0.60-1.30); GLOMERULAR FILTRATION RATE 19 ML/MIN (>89); GLUCOSE,RANDOM 103 MG/DL (74-106); SODIUM (NA) 140 MEQ/L (136-145); TOTAL BILIRUBIN ADULT 0.2 MG/DL (0.2-1.0); TOTAL PROTEIN 7.5 GM/DL (6.4-8.2)
[2017-11-23] VITALS (15 sets, daily range): BP systolic 98–161; BP diastolic 50–81; PULSE 59–68; RESP 15–35; TEMP 96.7–98.5; O2SAT 89–100
[2017-11-23] MEDS: INSULIN ASPART SUPPLEMENTAL SCALE SQ SCH ×6 (03:00→22:27)
[2017-11-23] MEDS: CHLORHEXIDINE GLUCONATE 2 % 1 PACK (2 CLOTHS) TOP SCH (04:00)
[2017-11-23 04:12] LABS: AUTOMATED NEUTROPHIL # 8.3 TH/MM3 (1.8-7.7); BASOPHIL % 0.4 % (0.0-2.0); EOSINOPHIL # 0.3 TH/MM3 (0-0.4); EOSINOPHIL % 3.4 % (0.0-4.0); HEMATOCRIT 24.1 % (39.0-51.0); HEMOGLOBIN 7.7 GM/DL (13.0-17.0); LYMPH % 5.4 % (9.0-44.0); LYMPHOCYTE # 0.5 TH/MM3 (1.0-4.8); MEAN CELL VOLUME 88.7 FL (80.0-100.0); MEAN CORPUSCULAR HEMOGLOBIN 28.4 PG (27.0-34.0); MEAN PLATELET VOLUME 5.4 FL (7.0-11.0); MONO % 8.4 % (0.0-8.0); MONOCYTE # 0.9 TH/MM3 (0-0.9); NEUT % 82.4 % (16.0-70.0); PLATELET COUNT 313 TH/MM3 (150-450); RED BLOOD COUNT 2.72 MIL/MM3 (4.50-5.90); RED CELL DISTRIBUTION WIDTH 15.1 % (11.6-17.2); WHITE BLOOD COUNT 10.1 TH/MM3 (4.0-11.0)
[2017-11-23 04:35] LABS: ALBUMIN 2.1 GM/DL (3.4-5.0); AST (GOT) 14 U/L (15-37); BLOOD UREA NITROGEN 46 MG/DL (7-18); CALCIUM 8.8 MG/DL (8.5-10.1); CHLORIDE 109 MEQ/L (98-107); CREATININE 3.16 MG/DL (0.60-1.30); GLOMERULAR FILTRATION RATE 19 ML/MIN (>89); GLUCOSE,RANDOM 111 MG/DL (74-106); MAGNESIUM 2.3 MG/DL (1.5-2.5); SODIUM (NA) 140 MEQ/L (136-145)
[2017-11-23 04:39] LABS: ALKALINE PHOSPHATASE 83 U/L (45-117); ALT (GPT) 17 U/L (12-78); TOTAL BILIRUBIN ADULT 0.2 MG/DL (0.2-1.0)
[2017-11-23] MEDS: RESP: ALBUTEROL 2.5 MG/IPRATROPIUM 0.5 MG NEB (SCH) INH ×5 (05:06→21:15)
[2017-11-23] MEDS: PIPERACIL-TAZO 2.25 GM PREMIX 50 ML IV SCH ×3 (06:36→20:00)
[2017-11-23] MEDS: SODIUM CHLOR 0.9% 1000 ML INJ 1,000 ML IV SCH ×2 (06:39→14:00)
[2017-11-23] MEDS: FLUTICASONE 100 MCG/VILANTEROL 25 MCG INHALER INH SCH (09:00)
[2017-11-23] MEDS ORDERED: FAMOTIDINE 20 MG TAB PO SCH (09:00)
[2017-11-23] MEDS ORDERED: FAMOTIDINE 20 MG/2 ML VIAL IV PUSH SCH (09:00)
[2017-11-23] MEDS: CLOPIDOGREL 75 MG TAB PO SCH (09:00)
[2017-11-23] MEDS ORDERED: SODIUM POLYSTYRENE SULFONATE SUSP 15 GM/60 ML CUP PO ONE ×2 (09:15→21:30)
[2017-11-23] MEDS ORDERED: DEXTROSE 50% IN WATER 50 ML VIAL(D50) IV PUSH ONE (09:30)
[2017-11-23] MEDS ORDERED: INSULIN HUMAN REGULAR 1,000 UNITS/10 ML VIAL IV PUSH ONE ×2 (09:30→21:30)
--- NOTE | 2017-11-23 09:57 | HHI.CCPN ---
Subjective Remarks/Hospital Course 77-year-old male with past medical history of CAD, CHF, COPD, chronic kidney disease stage III, GI bleed, cardiac arrest in 2017, diabetes, pacemaker placement who was brought to the emergency department from [facility] for altered mentation. Patient usually is communicative but last 24-48 hours had been confused and more lethargic somnolent. A CT of the head in the ER was negative for any acute findings as well as chest x-ray was also negative. CBC shows leukocytosis 12.3. CMP showed K 7.2, BUN 49, creatinine 3.39. Patient has a chronic Roman and history of recurrent UTI. UA shows moderate occult blood, large leukocyte esterase, innumerable WBC, indicating severe UTI and urosepsis. In the ED patient received 2 L normal saline bolus, and for hyperkalemia treatment received sodium bicarb 1 amp IV, 1 amp of dextrose, 10 units IV regular insulin, 1 g calcium gluconate after IV fluids. Patient started on Zosyn 2.25 g for UTI. I evaluated the patient in the ED. He is lethargic but wakes up to sternal rub. States his name follows commands but falls right back to sleep. His metabolic encephalopathy secondary to his sepsis. Cultures have been drawn I will continue Zosyn, give 1 dose of vancomycin. He is protecting airway and does not need the patient at this time. Stat repeat CMP ordered Subjective: 11/23 Oriented to self but remains confused. Potassium 6.3 this morning. Creatinine slight downtrend to 3.16. Making urine. Medically treating hyperkalemia again now with kayexalate/insulin/glucose. Records from alf state creatinine was 3.9 on 10/18/16. Renal u/s with bilateral hydronephrosis, now Roman in place. Called and discussed with senior care. He had roman in Aug and again in early october 2017, not a chronic roman, has appt in January for Dr. Duff but reportedly had never seen before. He is full code and per alf does not have advance directives on file. No family contact information. There is contact information for friend. Objective Vital Signs Date Time Temp Pulse Resp B/P (MAP) Pulse Ox O2 Delivery O2 Flow Rate FiO2 11/23/17 08:28 100 Nasal Cannula 2.00 11/23/17 08:00 97.2 60 21 121/55 (77) Intake and Output 11/23/17 11/23/17 11/24/17 08:00 16:00 00:00 Intake Total 993 ml Output Total 850 ml Balance 143 ml Result Diagram: 11/23/1731811/23/[address] of the head and chest x-ray shows no acute disease Objective Remarks NaCl at 1 25 mL/h Sinus rhythm with PACs with rate of 60 blood pressure 117 over 56 sats 100% on 1 L nasal cannula. GENERAL: Well-nourished, well-developed, obese elderly male patient, lethargic and confused. SKIN: Skin warm/dry. HEAD: Normocephalic. Atraumatic. ENT: Oral mucosa dry, airway patent. EYES: No scleral icterus. No injection or drainage. NECK: Supple, trachea midline. No JVD or lymphadenopathy. CARDIOVASCULAR: Regular rate and rhythm, 3 out of 6 systolic murmur left sternal border. RESPIRATORY: Clear to auscultation bilaterally without wheezes rales or rhonchi. On 1 L nasal cannula. GASTROINTESTINAL: Abdomen soft, non-tender, nondistended. Obese with multiple well healed scars. : Roman in place, al urine in bag and light yellow cloudy urine in tubing. MUSCULOSKELETAL: No cyanosis, or edema. s/p right big toe amputation NEURO: Patient is lethargic. Awakens to voice, answers a few yes/no questions. Oriented to self. Follows commands in all 4 extremities briefly, falls back to sleep. A/P Assessment and Plan NEURO: Acute metabolic encephalopathy -Altered mentation is secondary to severe sepsis from UTI -Hold any sedating medications -Watch closely for airway protection -Hold Venetia, hold Neurontin, Cymbalta RESP: History of COPD -Nasal cannula oxygen to keep SaO2 >90% -DuoNeb every 4 hours scheduled and as needed -Continue Breo Ellipta CV: History of coronary artery disease History of cardiac arrest -Normal saline IV fluids 2L bous and 125 ml per hour -2d echo last year showed EF 60% -Hold lisinopril hold statins due to worsening renal failure, continue Plavix GI: h/o Dysphagia - followed by Speech at alf, swallows pills at baseline -Keep n.p.o. until mental status improves, then speech therapy consult. - famotidine /ENDO: Acute on chronic kidney disease Hyperkalemia Type 2 diabetes -Monitor BMP, Roman in place. -Patient received bicarb, calcium gluconate, insulin IV push followed by D50 for treatment of hyperkalemia. -Now Potassium 6.3, will give additional Insulin/D50/kayexelate 30. Bicarb is 36. -Nephrology consulted and Dr. Lima notified -Renal ultrasound shows bilateral hydronephrosis. - Continuing flomax 0.4 mg po qhs that he is on chronically. Urology consult. -Further workup per nephrology ID: UTI Severe sepsis -Follow-up on blood and urine culture -IV vancomycin 1 GM x1 and continue Zosyn. Urien and blood cultures drawn 11/22 are pending. HEME: -Monitor CBC, CMP PROPH: -Bilateral lower extremity SCDs. Sq Heparin/ IV Famotidine LINES: -Utilize peripheral IVs, Patient is reportedly designated full code at alf. He does not have an advanced directive on file at the alf. There is no family contact. There is contact information for a friend named Sarah Pratt who was a neighbor but she states she was never formally designated his healthcare surrogate. She was helping him with grocery shopping and finances when he was living at home. She states he has no family. She states his closest friend who used to take him to doctor appointments was Eran Vance (spelling unknown) [phone], . Patient is currently not capacitated for medical decision making and it is unclear who would make medical decisions on his behalf. Consult palliative care. FULL CODE Level 3 F/u. Mary Carmen Ballesteros MD November 23, 2017 09:57
[2017-11-23] MEDS: HEPARIN SODIUM - SQ 10,000 UNITS/ML VIAL SQ SCH ×2 (10:26→22:04)
[2017-11-23] MEDS: FAMOTIDINE 20 MG/2 ML VIAL IV PUSH SCH ×2 (11:33→22:09)
--- NOTE | 2017-11-23 11:52 | MB ---
cc: Dc Lima MD DATE: 11/23/2017 REASON FOR CONSULTATION: Acute renal failure with hyperkalemia. HISTORY OF PRESENT ILLNESS: This is a 77-year-old male with a history of CAD, CHF and COPD as well as chronic kidney disease stage III-IV. The patient has a previous history of cardiac arrest in 2017, as well as diabetes. The patient was admitted from an [facility] with altered mental status. Apparently over the last 24-48 hours, he had been more confused and less communicative. In the ER, a CT of the head was negative for any acute findings. He was assessed with a possible urosepsis and is being treated with Zosyn as well as vancomycin. The patient has presented with severe hyperkalemia with a potassium level of 7.2. This was initially medically managed and improved down to 5.7. His potassium is slightly savanna again this morning to 6.3 and was medically managed again. Of note, a renal ultrasound was performed which revealed bilateral hydronephrosis and left-sided hydroureter. A Yang catheter was placed and the patient has had urine output with approximately 1.3 liters of urine output since his admission last night. At this time, the patient is resting in bed comfortably. He is somewhat confused. He is receiving IV fluids for apparent volume depletion. His creatinine at this time is 3.1 and apparently he had a previous creatinine level of 3.9 in the [facility] back in October. Approximately a year ago, he had an acute episode of acute kidney injury where his creatinine ranged from 4.8 and improved to low of 1.6. At that time, he was treated with diuretics for CHF. At this point, the patient is somewhat confused. Nephrology was consulted for evaluation of kidney disease, as well as hyperkalemia. REVIEW OF SYSTEMS: Not obtained, the patient is confused at this time. PAST MEDICAL HISTORY: Includes CAD with RCA stent in 2016, recurrent UTIs, indwelling Yang catheter, GI bleed, CKD stage III-IV, gout, anemia, COPD, CHF, obesity, hypertension, dyslipidemia and diabetes. PAST SURGICAL HISTORY: Includes toe amputation, arthroscopy, feeding tube, esophageal surgery, cardiac catheterization, upper and lower endoscopies with previous polyps and rectal ulcers. ALLERGIES: INCLUDE INFLUENZA VACCINE, CEPHALEXIN, LEVOFLOXACIN, MOXIFLOXACIN. MEDICATIONS AT HOME: Included Tamsulosin, Plavix, [place], Actigall, Milk of magnesia, loperamide, lisinopril, gabapentin, ferrous sulfate, Procrit, Cymbalta, Caltrate, Baclofen, omeprazole, NovoLog insulin, DuoNebs, atorvastatin, Brilinta, and allopurinol. FAMILY HISTORY: Unknown. The patient has altered mental status at this time. SOCIAL HISTORY: Previous history of smoking. Otherwise, the patient lives in an [facility]. PHYSICAL EXAMINATION: VITAL SIGNS: At time of evaluation, temperature 97.2, pulse 64, respiratory rate 21, blood pressure 121/77. GENERAL: Awake, confused, no apparent distress. NECK: Soft, supple. HEENT: Dry oral mucosa. CARDIAC: Regular rate and rhythm. PULMONARY: Lungs clear to auscultation. ABDOMEN: Soft, obese, nontender, nondistended. EXTREMITIES: No edema. LABORATORY FINDINGS: Sodium 140, potassium 6.3, chloride 109, bicarbonate 26, BUN 46, creatinine 3.1 with a glucose 111. White count 10.1, hemoglobin 7.7, hematocrit 24.1 with platelet count of 313. Urinalysis with moderate occult blood, 100 protein, large leukocyte esterase with 35 RBCs, few white blood cells, clumps, many bacteria seen. Culture is pending. ASSESSMENT AND PLAN: 1. Acute on chronic kidney disease. It is unclear what the patient's baseline creatinine is. However, he did have an apparent creatinine of 3.9 in the [facility] back in October of this year, approximately 1 month ago. At this time, he has a creatinine of 3.1. One year ago, the patient had an episode of acute kidney injury where his creatinine ranged between 4.8 and 1.6. At this point, I suspect the patient has some underlying chronic kidney disease which may presumably be due to a history of diabetes with possible hypertension. He has only 100 protein in the urine otherwise. A renal ultrasound was performed, which also showed findings of bilateral hydronephrosis and left-sided hydroureter. At this point a Yang has been placed. His creatinine is 3.1 at this time. He may be near his baseline, continue to closely monitor renal function. Continues on IVFs. 2. Hyperkalemia. The patient had an initial potassium of 7.2. This improved slightly to a level of 5.7 with medical management, then savanna slightly up to 6.3 today. At this point, he has been further medically treated. Recommend to continue with aggressive medical management of hyperkalemia. Should this fail, then he may require dialysis; however, he overall is making some urine, which is encouraging in the setting of apparent hydronephrosis. Continue to monitor closely and continue with IV fluids. The patient is on normal saline at 125 mL per hour. Continue to monitor for any renal improvement. We will also check fractional excretion of sodium levels to assess renal injury. 3. Hydroureter with bilateral hydronephrosis. The patient has a Yang catheter in place at this time. He has approximately 1.3 liters of urine output since this was placed overnight. He continues on IV fluids at this point and also he is on Flomax. Apparently, per the [facility], the patient does up with urology as an outpatient and he has required Yang catheter placement intermittently in the [facility]. Recommended to leave Yang catheter in place at this point and continue to monitor closely. 4. Urinary tract infection. Urinalysis suggestive of urinary tract infection. The patient HAS AN ALLERGY TO QUINOLONES. He is on antibiotics with Zosyn as well as was given at 1 dose of vancomycin. I will continue to closely monitor renal function and renal dose antibiotics as possible. 5. Altered mental status. Unclear what the patient's baseline mental status is. However, he was apparently conversational in the [facility] approximately 24-48 hours ago. This may be all secondary to urosepsis with a UTI. Continue to closely monitor. 6. Chronic obstructive pulmonary disease and congestive heart failure. Continue to closely monitor volume status. The patient is receiving IV fluids and does clinically appear volume depleted. There are no signs of any respiratory distress at this time. Continue with IV fluids. We will closely monitor respiratory function. 7. Diabetes. Continue to monitor. MD ANNIE Youssef/CASSIE , 11:10 AM , 11:50 AM STEV[facility]
--- NOTE | 2017-11-23 13:49 | EKG ---
Date Performed: 11/22/2017 Time Performed: 19:37:44 PTAGE: 77 years EKG: ELECTRONIC ATRIAL PACEMAKER RIGHT BUNDLE BRANCH BLOCK ABNORMAL ECG PREVIOUS TRACING : 11/08/2016 21.08 Since the previous tracing, no significant change noted DOCTOR: Lance Hu Interpretating Date/Time 11/23/2017 13:46:18
[2017-11-23] MEDS: TAMSULOSIN HCL 0.4 MG CAP PO SCH ×2 (20:00→20:13)
[2017-11-23] MEDS ORDERED: SODIUM CHLOR 0.9% 1000 ML INJ 1,000 ML IV ONE ×2 (21:30)
[2017-11-23] MEDS ORDERED: SODIUM BICARBONATE 8.4% INJ 50 MEQ/50 ML SYR IV PUSH ONE (21:30)
[2017-11-23] MEDS ORDERED: CALCIUM GLUCONATE INJ 2 GM in SODIUM CHLORIDE 0.9% INJ 100 ML IV ONE (21:30)
[2017-11-23] MEDS ORDERED: DEXTROSE 50% IN WATER 50 ML SYRINGE IV PUSH ONE (21:30)
[2017-11-24] VITALS (19 sets, daily range): BP systolic 136–220; BP diastolic 63–86; PULSE 71–109; RESP 18–29; TEMP 97.7–98.7; O2SAT 95–99
[2017-11-24] MEDS: RESP: ALBUTEROL 2.5 MG/IPRATROPIUM 0.5 MG NEB (SCH) INH ×6 (00:04→20:06)
[2017-11-24] MEDS: SODIUM CHLOR 0.9% 1000 ML INJ 1,000 ML IV SCH ×2 (00:45→09:25)
[2017-11-24] MEDS: INSULIN ASPART SUPPLEMENTAL SCALE SQ SCH ×6 (03:00→23:00)
[2017-11-24] MEDS: CHLORHEXIDINE GLUCONATE 2 % 1 PACK (2 CLOTHS) TOP SCH (04:00)
[2017-11-24] MEDS: PIPERACIL-TAZO 2.25 GM PREMIX 50 ML IV SCH ×3 (04:31→22:19)
[2017-11-24 06:36] LABS: BICARBONATE 22.7 MEQ/L (21.0-32.0); CALCIUM 8.6 MG/DL (8.5-10.1); CREATININE 2.86 MG/DL (0.60-1.30); MAGNESIUM 2.1 MG/DL (1.5-2.5); PHOSPHORUS 4.2 MG/DL (2.5-4.9)
[2017-11-24 07:34] LABS: AUTOMATED NEUTROPHIL # 6.6 TH/MM3 (1.8-7.7); BASOPHIL # 0.1 TH/MM3 (0-0.2); BASOPHIL % 0.9 % (0.0-2.0); EOSINOPHIL # 0.3 TH/MM3 (0-0.4); EOSINOPHIL % 3.8 % (0.0-4.0); HEMATOCRIT 24.3 % (39.0-51.0); HEMOGLOBIN 7.9 GM/DL (13.0-17.0); LYMPHOCYTE # 0.5 TH/MM3 (1.0-4.8); MEAN CELL VOLUME 88.7 FL (80.0-100.0); MEAN CORPUSCULAR HEMOGLOBIN 28.8 PG (27.0-34.0); MEAN CORPUSCULAR HGB CONC 32.5 % (32.0-36.0); MEAN PLATELET VOLUME 5.7 FL (7.0-11.0); MONO % 4.8 % (0.0-8.0); MONOCYTE # 0.4 TH/MM3 (0-0.9); NEUT % 84.5 % (16.0-70.0); PLATELET COUNT 321 TH/MM3 (150-450); RED BLOOD COUNT 2.75 MIL/MM3 (4.50-5.90); RED CELL DISTRIBUTION WIDTH 15.9 % (11.6-17.2); WHITE BLOOD COUNT 7.8 TH/MM3 (4.0-11.0)
[2017-11-24] MEDS: CLOPIDOGREL 75 MG TAB PO SCH (09:00)
[2017-11-24] MEDS: FLUTICASONE 100 MCG/VILANTEROL 25 MCG INHALER INH SCH (09:00)
[2017-11-24] MEDS: HEPARIN SODIUM - SQ 10,000 UNITS/ML VIAL SQ SCH ×2 (09:24→22:20)
--- NOTE | 2017-11-24 11:11 | HHI.NPPN ---
Subjective Additional Remarks Remains confused, no apparent distress Objective Data Data Vital Signs Date Time Temp Pulse Resp B/P (MAP) Pulse Ox O2 Delivery O2 Flow Rate FiO2 11/24/17 10:00 89 11/24/17 08:18 99 11/24/17 08:00 82 11/24/17 08:00 98.4 82 29 136/68 (90) 98 11/24/17 06:00 87 11/24/17 04:00 78 11/24/17 04:00 98.7 78 18 146/64 (91) 97 11/24/17 02:00 80 11/24/17 00:00 75 11/24/17 00:00 97.8 75 24 175/70 (105) 96 11/23/17 22:00 68 11/23/17 21:15 100 Nasal Cannula 1.00 11/23/17 20:00 68 11/23/17 20:00 98.4 68 20 161/76 (104) 100 11/23/17 18:00 66 11/23/17 16:01 98.5 67 35 107/81 (90) 89 11/23/17 16:00 65 11/23/17 14:00 61 11/23/17 12:00 98.0 67 16 98/50 (66) 99 11/23/17 12:00 67 -: 11/24/17 0330 11/24/17 0330 Microbiology 11/23/17 Aerobic Blood Culture, Received Pending 11/23/17 Anaerobic Blood Culture, Received Pending 11/23/17 Aerobic Blood Culture, Received Pending 11/23/17 Anaerobic Blood Culture, Received Pending Physical Exam General Appearance: Well Developed, Well Nourished, No Acute Distress Neck Neck Exam: Neck Supple Pulmonary Resp Exam: Decreased Bases Cardiology CV Exam: Regular, Normal Sinus Rhythm Gastrointestinal/Abdomen GI Exam: Soft, Non-Tender, Bowel Sounds Present Genitourinary Exam: Clear Urine Musculoskeletal MS Exam: Joints Intact Integumentary Skin Exam: Clear, Warm, Dry, Intact Extremeties Extremities Exam: No Edema Neurologic Neuro Exam: Awake Assessment/Plan Assessment Remarks Problem List: (1) Acute on chronic renal failure ICD Codes: N17.9 - Acute kidney failure, unspecified; N18.9 - Chronic kidney disease, unspecified Status: Acute Plan: Unclear baseline creatinine. Creatinine 3.9 in the long-term 10/2017 One year ago, the patient had an episode of acute kidney injury where his creatinine ranged between 4.8 and 1.6. CKD likely due to DM/HTN. 100 protein in U/A SHAHLA secondary to obstructive uropathy, with hydronephrosis on ultrasound. Clinically volume depleted as well. Leave roman in place - apparently had planned for outpatient evaluation. 1.8 L UOP/ 24 hours. He may be near his baseline, continue to closely monitor renal function. Creatinine 3.1 -> 2.8 Continues on IVFs: slightly elevated Na, acidosis improved - will change IVFs to 1/2 NS @100cc/hour. (2) UTI (urinary tract infection) ICD Codes: N39.0 - Urinary tract infection, site not specified Status: Acute Plan: Urinalysis suggestive of urinary tract infection. The patient HAS AN ALLERGY TO QUINOLONES. He is on antibiotics with Zosyn as well as was given at 1 dose of vancomycin. Closely monitor renal function and renal dose antibiotics as possible. (3) Hyperkalemia ICD Codes: E87.5 - Hyperkalemia Status: Acute Plan: Initial hyperkalemia with K 7.2 - medically managed. Improving K+ at 5.0 now, continue to monitor. (4) Acute metabolic encephalopathy ICD Codes: G93.41 - Metabolic encephalopathy Plan: apparently conversational in NH - possible AMS due to UTI. Continue to monitor. Problem Qualifiers (1) UTI (urinary tract infection): Qualified Codes: N39.0 - Urinary tract infection, site not specified; R31.9 - Hematuria, unspecified Dc Lima MD November 24, 2017 11:11
[2017-11-24] MEDS: FAMOTIDINE 20 MG/2 ML VIAL IV PUSH SCH ×2 (12:25→22:19)
[2017-11-24] MEDS: LABETALOL HCL 100 MG/20 ML VIAL IV PUSH PRN (13:11)
[2017-11-24] MEDS: SODIUM CHLOR 0.45% 1000 ML INJ 1,000 ML IV SCH ×2 (13:16→23:00)
--- NOTE | 2017-11-24 16:27 | HHI.CCPN ---
Subjective Remarks/Hospital Course 77-year-old male with past medical history of CAD, CHF, COPD, chronic kidney disease stage III, GI bleed, cardiac arrest in 2017, diabetes, pacemaker placement who was brought to the emergency department from [facility] for altered mentation. Patient usually is communicative but last 24-48 hours had been confused and more lethargic somnolent. A CT of the head in the ER was negative for any acute findings as well as chest x-ray was also negative. CBC shows leukocytosis 12.3. CMP showed K 7.2, BUN 49, creatinine 3.39. Patient has a chronic Roman and history of recurrent UTI. UA shows moderate occult blood, large leukocyte esterase, innumerable WBC, indicating severe UTI and urosepsis. In the ED patient received 2 L normal saline bolus, and for hyperkalemia treatment received sodium bicarb 1 amp IV, 1 amp of dextrose, 10 units IV regular insulin, 1 g calcium gluconate after IV fluids. Patient started on Zosyn 2.25 g for UTI. I evaluated the patient in the ED. He is lethargic but wakes up to sternal rub. States his name follows commands but falls right back to sleep. His metabolic encephalopathy secondary to his sepsis. Cultures have been drawn I will continue Zosyn, give 1 dose of vancomycin. He is protecting airway and does not need the patient at this time. Stat repeat CMP ordered 11/23 Oriented to self but remains confused. Potassium 6.3 this morning. Creatinine slight downtrend to 3.16. Making urine. Medically treating hyperkalemia again now with kayexalate/insulin/glucose. Records from group home state creatinine was 3.9 on 10/18/16. Renal u/s with bilateral hydronephrosis, now Roman in place. Called and discussed with intermediate. He had roman in Aug and again in early october 2017, not a chronic roman, has appt in January for Dr. Duff but reportedly had never seen before. He is full code and per group home does not have advance directives on file. No family contact information. There is contact information for friend. Subjective: 11/24 Potassium down to 5 this morning. Creatinine downtrending. Urine culture felt to be contaminant. He remains confused and reportedly he is conversant at baseline per group home. Weaned off NC and now on RA. Coughing. Objective Vital Signs Date Time Temp Pulse Resp B/P (MAP) Pulse Ox O2 Delivery O2 Flow Rate FiO2 11/24/17 14:00 71 11/24/17 08:18 99 11/24/17 08:00 98.4 29 136/68 (90) 11/23/17 21:15 Nasal Cannula 1.00 Intake and Output 11/24/17 11/24/17 11/25/17 08:00 16:00 00:00 Intake Total 2721 ml Output Total 950 ml Balance 1771 ml Result Diagram: 11/24/17 0330 11/24/17 0330 Other Results Microbiology Date/Time Source Procedure Growth Status 11/22/17 18:43 Urine Catheterized Urine Urine Culture - Final Complete Imaging CT of the head and chest x-ray shows no acute disease Objective Remarks GENERAL: Well-nourished, well-developed, obese elderly male patient, lethargic and confused. SKIN: Skin warm/dry. HEAD: Normocephalic. Atraumatic. ENT: Oral mucosa dry, airway patent. EYES: No scleral icterus. No injection or drainage. NECK: Supple, trachea midline. No JVD or lymphadenopathy. CARDIOVASCULAR: Regular rate and rhythm, 3 out of 6 systolic murmur left sternal border. RESPIRATORY: Clear to auscultation bilaterally without wheezes rales or rhonchi. Diminished bibasilar. GASTROINTESTINAL: Abdomen soft, non-tender, nondistended. Obese with multiple well healed scars. : Roman in place, light yellow urine in bag. Had cloudy urine with exudate at urethra meatus which is improved MUSCULOSKELETAL: No cyanosis, or edema. s/p right big toe amputation NEURO: Patient is lethargic. Awakens to voice, answers a few yes/no questions. Does not answer questions of orientation to follows commands in all 4 extremities briefly, falls back to sleep. A/P Assessment and Plan NEURO: Acute metabolic encephalopathy -Altered mentation was felt to be secondary to sepsis but not yet improving. - CT brain 11/22 - negative -check ABG to evaluate for hypercapnea. check ammonia. -Check EEG. May need MRI if mental status not improving. -Hold any sedating medications -Hold [place], hold Neurontin, Cymbalta RESP: History of COPD -Nasal cannula oxygen to keep SaO2 >90% -DuoNeb every 4 hours scheduled and as needed. Albuterol q2. -Continue Breo Ellipta CV: History of coronary artery disease History of cardiac arrest -Recieved Normal saline IV fluids 2L bolus then 125 ml per hour -Today nephrology changed IVF to 1/2 NS @ 100/hr. -Coughing and checked CXR which looked like vascular congestion. Did bedside ultrasound to evaluate volume status further and EF appears ~55%, no significant pulmonary edema on lung u/s, unable to get good window for IVC. He is on RA so will continue IVF as he has resolving SHAHLA. Lasix remains on hold, will monitor for volume overload and resume as necessary. -2d echo last year showed EF 60% Continue Plavix HTN -Remains hypertensive, unable to swallow meds. Hydralazine IV unavailable. -Place NGT. Norvasc 5 mg po daily. Labetalol prn . -Hold lisinopril hold statins due to worsening renal failure, GI: h/o Dysphagia - followed by Speech at group home, swallows pills at baseline -Does not pass swallow eval. Placed NGT. - famotidine /ENDO: Acute on chronic kidney disease Acute obstructive uropathy. Hyperkalemia Type 2 diabetes -Monitor BMP, Roman in place. - Continuing flomax 0.4 mg po qhs that he is on chronically. Will need urology followup -Patient received bicarb, calcium gluconate, insulin IV push followed by D50 for treatment of hyperkalemia. -With Potassium 6.3, will give additional Insulin/D50/kayexelate 30. Bicarb is 36. -Potassium now normalized. -Nephrology Dr. Lima following. -Renal ultrasound shows bilateral hydronephrosis. ID: UTI Severe sepsis -Follow-up on blood and urine culture -IV vancomycin 1 GM x1 blood cultures drawn 11/22 are negative. urine culture -no dominant organism on culture but had purulence at meatus, cloudy urine and urinary obstruction that was highly suspicious so will repeat U /a and culture with new catheter. continue Zosyn currently. HEME: -Monitor CBC, CMP PROPH: -Bilateral lower extremity SCDs. Sq Heparin/ IV Famotidine LINES: -Utilize peripheral IVs, Patient is reportedly designated full code at group home. He does not have an advanced directive on file at the group home. There is no family contact. There is contact information for a friend named Sarah Pratt who was a neighbor but she states she was never formally designated his healthcare surrogate. She was helping him with grocery shopping and finances when he was living at home. She states he has no family. She states his closest friend who used to take him to doctor appointments was Eran Vance (spelling unknown) [phone], . Patient is currently not capacitated for medical decision making and it is unclear who would make medical decisions on his behalf. Consult palliative care. FULL CODE Level 2 F/u. Mary Carmen Ballesteros MD November 24, 2017 16:27
[2017-11-24] MEDS ORDERED: RESP: ALBUTEROL 2.5 MG/3 ML NEB (PRN) NEB (16:45)
--- NOTE | 2017-11-24 18:08 | RADRPT ---
EXAM DATE/TIME: 11/24/2017 17:55 [facility] COMPARISON: CHEST SINGLE AP, November 22, 2017, 19:13. INDICATIONS : Short of breath. MEDICAL HISTORY : Gastroesophageal reflux disease. Chronic obstructive pulmonary disease. Congestive heart failure. Mary b. Bradycardia.Diabetes. SURGICAL HISTORY : Cholecystectomy. ENCOUNTER: Subsequent ACUITY: 3 days PAIN SCORE: 0/10 LOCATION: Bilateral chest FINDINGS: Right-sided pacemaker. No new focal pleural or parenchymal opacities. Diffuse interstitial prominence . Cardiac silhouette is mildly enlarged. Central pulmonary vascularity slightly indistinct. The remai nder of the exam is unchanged. CONCLUSION: 1. Cardiomegaly with mild positive fluid balance. Michoacano Dean MD on November 24, 2017 at 18:05 Board Certified Radiologist. This report was verified electronically.
[2017-11-24] MEDS: TAMSULOSIN HCL 0.4 MG CAP PO SCH (22:19)
[2017-11-24] MEDS: amLODIPine BESYLATE 5 MG TAB OG-TUBE SCH (22:19)
[2017-11-25] VITALS (11 sets, daily range): BP systolic 107–192; BP diastolic 55–82; PULSE 78–92; RESP 22; TEMP 97–98.7; O2SAT 94–99
[2017-11-25] MEDS: RESP: ALBUTEROL 2.5 MG/IPRATROPIUM 0.5 MG NEB (SCH) INH ×6 (00:26→20:00)
[2017-11-25 00:29] LABS: BILIRUBIN, URINE NEG (NEG); BLOOD, URINE MOD (NEG); GLUCOSE,URINE TRACE mg/dL (NEG); KETONE, URINE NEG (NEG); NITRITE,URINE NEG (NEG); PH, URINE 7.5 (5.0-8.5); URINE COLOR LIGHT-YELLOW (YELLW/STRAW); URINE LEUKOCYTE ESTERASE NEG (NEG)
[2017-11-25] MEDS: SODIUM CHLOR 0.45% 1000 ML INJ 1,000 ML IV SCH ×3 (02:58→17:55)
[2017-11-25] MEDS: INSULIN ASPART SUPPLEMENTAL SCALE SQ SCH ×6 (03:00→23:00)
[2017-11-25] MEDS ORDERED: GELATIN 12 MM/7 MM FOAM ONE (03:16)
[2017-11-25] MEDS: CHLORHEXIDINE GLUCONATE 2 % 1 PACK (2 CLOTHS) TOP SCH (04:00)
[2017-11-25] MEDS: PIPERACIL-TAZO 2.25 GM PREMIX 50 ML IV SCH ×3 (06:09→21:23)
[2017-11-25 08:12] LABS: AUTOMATED NEUTROPHIL # 8.1 TH/MM3 (1.8-7.7); BASOPHIL # 0.1 TH/MM3 (0-0.2); BASOPHIL % 0.8 % (0.0-2.0); EOSINOPHIL # 0.3 TH/MM3 (0-0.4); EOSINOPHIL % 2.9 % (0.0-4.0); HEMATOCRIT 23.2 % (39.0-51.0); HEMOGLOBIN 7.5 GM/DL (13.0-17.0); LYMPH % 5.2 % (9.0-44.0); LYMPHOCYTE # 0.5 TH/MM3 (1.0-4.8); MEAN CELL VOLUME 88.4 FL (80.0-100.0); MEAN CORPUSCULAR HEMOGLOBIN 28.7 PG (27.0-34.0); MEAN CORPUSCULAR HGB CONC 32.4 % (32.0-36.0); MEAN PLATELET VOLUME 5.4 FL (7.0-11.0); MONO % 4.6 % (0.0-8.0); MONOCYTE # 0.4 TH/MM3 (0-0.9); NEUT % 86.5 % (16.0-70.0); PLATELET COUNT 312 TH/MM3 (150-450); RED BLOOD COUNT 2.62 MIL/MM3 (4.50-5.90); RED CELL DISTRIBUTION WIDTH 15.2 % (11.6-17.2); WHITE BLOOD COUNT 9.3 TH/MM3 (4.0-11.0)
[2017-11-25 08:29] LABS: ALBUMIN 2.1 GM/DL (3.4-5.0); AST (GOT) 16 U/L (15-37); BICARBONATE 23.3 MEQ/L (21.0-32.0); BLOOD UREA NITROGEN 32 MG/DL (7-18); CALCIUM 8.8 MG/DL (8.5-10.1); CHLORIDE 114 MEQ/L (98-107); CREATININE 2.86 MG/DL (0.60-1.30); GLOMERULAR FILTRATION RATE 22 ML/MIN (>89); GLUCOSE,RANDOM 105 MG/DL (74-106); SODIUM (NA) 146 MEQ/L (136-145)
[2017-11-25 08:35] LABS: ALKALINE PHOSPHATASE 78 U/L (45-117); ALT (GPT) 16 U/L (12-78); PHOSPHORUS 4.1 MG/DL (2.5-4.9); TOTAL BILIRUBIN ADULT 0.3 MG/DL (0.2-1.0); TOTAL PROTEIN 7.2 GM/DL (6.4-8.2)
[2017-11-25] MEDS: FLUTICASONE 100 MCG/VILANTEROL 25 MCG INHALER INH SCH (09:00)
[2017-11-25] MEDS: FAMOTIDINE 20 MG/2 ML VIAL IV PUSH SCH ×2 (09:39→21:23)
[2017-11-25] MEDS: amLODIPine BESYLATE 5 MG TAB OG-TUBE SCH (09:39)
--- NOTE | 2017-11-25 09:54 | PD.CONS ---
HPI Service Urology Consult Requested By Dr. Ballesteros Reason for Consult Bilateral hydronephrosis Primary Care Physician Unknown Diagnosis: (1) Altered mental status ICD Code: R41.82 - Altered mental status, unspecified (2) UTI (urinary tract infection) ICD Code: N39.0 - Urinary tract infection, site not specified (3) Acute on chronic renal failure ICD Code: N17.9 - Acute kidney failure, unspecified; N18.9 - Chronic kidney disease, unspecified (4) Hyperkalemia ICD Code: E87.5 - Hyperkalemia (5) Acute metabolic encephalopathy ICD Code: G93.41 - Metabolic encephalopathy (6) HTN (hypertension) ICD Code: I10 - Essential (primary) hypertension (7) Obesity ICD Code: E66.9 - Obesity, unspecified (8) CHF (congestive heart failure) ICD Code: I50.9 - Heart failure, unspecified (9) CAD (coronary artery disease) ICD Code: I25.10 - Atherosclerotic heart disease of [place] coronary artery without angina pectoris History of Present Illness 77-year-old gentleman with history of chronic kidney disease and chronic urinary obstruction managed with an indwelling Yang catheter. Patient presently admitted to the ICU with recent development of altered mental status. Patient resides at a longterm facility and is being followed by a urologist as an outpatient. Review of the medical records indicate that the patient has been intermittently managed with an indwelling Yang catheter. A renal ultrasound study was performed that demonstrated bilateral hydroureteronephrosis. A Yang catheter was placed during present hospitalization with excellent urine output. I was unable to elicit any additional history from this patient. Review of Systems ROS Limitations: Altered Mental Status Except as stated in HPI: all other systems reviewed are Neg Past Family Social History Past Medical History Chronic kidney disease Coronary artery disease Recurrent UTIs History GI bleed COPD CHF Obesity Hypertension Diabetes mellitus Past Surgical History Status post cardiac stent Status post toe amputation Reported Medications Refer to EMR Allergies: Coded Allergies: Influenza Virus Vaccines (Unverified Allergy, Unknown, 02/19/17) cephalexin (Unverified Allergy, Unknown, 02/19/17) levofloxacin (Unverified Allergy, Unknown, 02/19/17) moxifloxacin (Unverified Allergy, Unknown, 02/19/17) Active Ordered Medications Refer to EMR Family History Unable to obtain Social History Resides in a [facility] Former tobacco use Physical Exam Vital Signs Date Time Temp Pulse Resp B/P (MAP) Pulse Ox O2 Delivery O2 Flow Rate FiO2 11/25/17 08:12 98 21 11/25/17 02:00 78 11/25/17 00:00 86 94 11/25/17 00:00 92 11/24/17 23:46 90 150/63 (92) 96 11/24/17 23:16 109 170/70 (103) 95 11/24/17 23:01 88 144/67 (92) 97 11/24/17 22:00 87 11/24/17 22:00 88 138/69 (92) 98 11/24/17 21:00 87 97 11/24/17 20:06 98 11/24/17 20:01 98.0 82 165/70 (101) 98 11/24/17 20:00 86 11/24/17 18:00 86 11/24/17 18:00 74 11/24/17 16:00 74 11/24/17 16:00 97.7 74 27 220/80 (126) 98 11/24/17 14:00 71 11/24/17 12:00 98.0 91 29 210/86 (127) 98 11/24/17 12:00 91 11/24/17 10:00 89 Physical Exam GENERAL: Appears older than stated age and in no apparent distress. SKIN: No rashes, ecchymoses or lesions. Cool and dry. HEAD: Atraumatic. Normocephalic. No temporal or scalp tenderness. EYES: Pupils equal round and reactive. Extraocular motions intact. No scleral icterus. No injection or drainage. ENT: Nose without bleeding, purulent drainage or septal hematoma. Throat without erythema, tonsillar hypertrophy or exudate. Uvula midline. Airway patent. NECK: Trachea midline. No JVD or lymphadenopathy. Supple, nontender, no meningeal signs. GASTROINTESTINAL: Abdomen soft, non-tender, nondistended. No hepato-splenomegaly , or palpable masses. No guarding. GENITOURINARY: Indwelling Yang catheter draining blood-tinged urine, bladder not distended MUSCULOSKELETAL: Extremities without clubbing, cyanosis, or edema. No joint tenderness, effusion, or edema noted. No calf tenderness. Negative Homans sign bilaterally. NEUROLOGICAL: Altered mental status Lab results reviewed: Yes Laboratory Tests Test 11/24/17 16:53 11/25/17 00:00 11/25/17 07:43 Blood Gas Puncture Site LT RADIAL Blood Gas Patient Temperature 98.6 Blood Gas HCO3 21 Blood Gas Base Excess -3.7 Blood Gas Oxygen Saturation 92 Arterial Blood pH 7.34 Arterial Blood Partial Pressure CO2 41 Arterial Blood Partial Pressure O2 74 Arterial Blood Oxygen Content 10.1 Arterial Blood Carboxyhemoglobin 1.1 Arterial Blood Methemoglobin 1.5 Blood Gas Hemoglobin 7.7 Blood Gas Inspired Oxygen 21 Urine Color LIGHT-YELLOW Urine Turbidity CLEAR Urine pH 7.5 Urine Specific [place] 1.012 Urine Protein 300 Urine Glucose (UA) TRACE Urine Ketones NEG Urine Occult Blood MOD Urine Nitrite NEG Urine Bilirubin NEG Urine Urobilinogen LESS THAN 2.0 Urine Leukocyte Esterase NEG Urine RBC Urine WBC 14 Microscopic Urinalysis Comment CATH-CULTURE IND Urine Random Creatinine 30.0 Urine Random Sodium 123 White Blood Count 9.3 Red Blood Count 2.62 Hemoglobin 7.5 Hematocrit 23.2 Mean Corpuscular Volume 88.4 Mean Corpuscular Hemoglobin 28.7 Mean Corpuscular Hemoglobin Concent 32.4 Red Cell Distribution Width 15.2 Platelet Count 312 Mean Platelet Volume 5.4 Neutrophils (%) (Auto) 86.5 Lymphocytes (%) (Auto) 5.2 Monocytes (%) (Auto) 4.6 Eosinophils (%) (Auto) 2.9 Basophils (%) (Auto) 0.8 Neutrophils # (Auto) 8.1 Lymphocytes # (Auto) 0.5 Monocytes # (Auto) 0.4 Eosinophils # (Auto) 0.3 Basophils # (Auto) 0.1 CBC Comment DIFF FINAL Differential Comment Blood Urea Nitrogen 32 Creatinine 2.86 Random Glucose 105 Total Protein 7.2 Albumin 2.1 Calcium Level 8.8 Phosphorus Level 4.1 Magnesium Level 2.0 Alkaline Phosphatase 78 Aspartate Amino Transf (AST/SGOT) 16 Alanine Aminotransferase (ALT/SGPT) 16 Total Bilirubin 0.3 Sodium Level 146 Potassium Level 4.4 Chloride Level 114 Carbon Dioxide Level 23.3 Anion Gap 9 Estimat Glomerular Filtration Rate 22 Ammonia 21 B-Type Natriuretic Peptide 1485 Date/Time Source Procedure Growth Status 11/23/17 19:55 Blood Peripheral Aerobic Blood Culture - Preliminary NO GROWTH IN 1 DAY Resulted 11/23/17 19:55 Blood Peripheral Anaerobic Blood Culture - Preliminary NO GROWTH IN 1 DAY Resulted 11/24/17 09:28 Stool Stool Stool Occult Blood (CARLOS) - Final HEMOCCULT NEGATIVE Complete 11/25/17 00:00 Urine Catheterized Urine Urine Culture Pending Received Result Diagram: 11/25/17 0743 11/25/17 0743 Personally reviewed images: Yes Imaging Last Impressions Chest X-Ray 11/24/17 0000 Signed Impressions: Service Date/Time: Friday, November 24, 2017 17:55 - CONCLUSION: 1. Cardiomegaly with mild positive fluid balance. Michoacano Dean MD Head CT 11/22/17 1907 Signed Impressions: Service Date/Time: Wednesday, November 22, 2017 19:57 - CONCLUSION: 1. No acute abnormality seen. 2. Mild atrophy. Walter White MD Renal Ultrasound 11/22/17 0000 Signed Impressions: Service Date/Time: Wednesday, November 22, 2017 21:58 - CONCLUSION: 1. Moderate bilateral hydronephrosis with left ureter dilated throughout its course. 2. Small amount of bladder debris. 3. Increased renal echogenicity characteristic of medical renal disease. Isidro Landeros MD Assessment and Plan Assessment and Plan Urologic impression: 1. Bilateral hydronephrosis likely related to bladder outlet obstruction 2. Chronic kidney disease possibly related to long-standing bladder outlet obstruction Recommendations: 1. Continue with indwelling Yang catheter 2. Patient to follow-up with his established urologist after hospital discharge 3. Nothing further to add at the present time Problem Qualifiers (1) Altered mental status: Qualified Codes: R41.82 - Altered mental status, unspecified (2) UTI (urinary tract infection): Qualified Codes: N39.0 - Urinary tract infection, site not specified; R31.9 - Hematuria, unspecified Perfecto Gaffney MD November 25, 2017 09:54
[2017-11-25] MEDS: HEPARIN SODIUM - SQ 10,000 UNITS/ML VIAL SQ SCH ×2 (10:00→21:24)
--- NOTE | 2017-11-25 10:44 | PD.CONS ---
Consult Service Palliative Care . Consult Requested By Dr. Ballesteros . Primary Care Physician Unknown . Reason for Consultation a. To assist with evaluation and management of symptoms including: pain, debility, encephalopathy b. To assist medical decision maker(s) with: better understanding of current medical conditions; weighing benefits/burdens of medical treatment options; making medical treatment decisions. HPI History of Present Illness Mr. Rosenberg is a 77 year old male [facility] resident with a past medical history of CAD , CHF, COPD, chronic kidney disease stage III, GI bleed, cardiac arrest in 2017 , diabetes, pacemaker placement who presented [facility] on 11/22/17 via EMS for evaluation of altered mental status. Per report, patient had become increasingly confused and somnolent over the previous 24-48 hours. He is communicative at baseline but would not answer questions or follow commands on exam. Additional diagnostic data: * Vital Signs: pulse 62,respirations 16, BP 140/91, oxygen saturation 96% on 2L O2 via nasal cannula. * WBC: 12.3, hgb 8.7, Hht 27.1, plt 375, neutrophils 84.0% * Sodium 134, potassium 7.0, chloride 103, carbon dioxide 25.2, glucose 121, calcium 9.4 * Lactic acid 0.9 * BUN: 49, creatinine 3.39, GFR 18 * PT 10.9, INR 1.1, APTT 34.5 * UA shows moderate occult blood, large leukocyte esterase, 35 RBC, innumerable WBC, few WBC clumps. * Blood culture growing Staph Sp Coagulase Positive * EKG shows electronic atrial pacemaker, heart rate 61. * CXR revealed no acute disease * CT brain showed mild atrophy; no acute abnormalities were seen A CT of the head in the ER was negative for any acute findings as well as chest x-ray was also negative. The patient has a chronic Yang as well as a history of recurrent UTI. UA shows moderate occult blood, large leukocyte esterase, innumerable WBC, indicating severe UTI and urosepsis. In the ED patient received 2 L normal saline bolus, and for hyperkalemia treatment received sodium bicarb 1 amp IV, 1 amp of dextrose, 10 units IV regular insulin, 1 g calcium gluconate after IV fluids. Patient started on Zosyn 2.25 g for UTI; given 1 dose of vancomycin. Patient was admitted to critical care services. Nephrology was consulted given acute renal failure with hyperkalemia. Patient' s creatinine was 3.1 on admission, baseline history unknown. Last year, the patient had an episode of acute AK I where his creatinine ranged between 4.8 and 1.6. A renal ultrasound showed findings of bilateral hydronephrosis and left-sided hydroureter. Yang catheter was placed with approximately 1.3 L of urine output overnight. Patient has required Yang catheter placement intermittently in the [facility]. He had Yang in August, and again in early October. 2017. He has appt in January with Dr. Duff but reportedly had never seen before. Urology was consulted for recommendations and management of obstructive uropathy. Follow-up chest x-ray on 11/24/2017 showing cardiomegaly with mild positive fluid balance Potassium remains elevated on 11/23/17 at 6.3; medically treating hyperkalemia again now with kayexalate/insulin/glucose. Potassium level down to 4.4. today . Patient had designated his friend, Sarah Pratt, as the healthcare surrogate decision maker. Per previous palliative care note on 11/12/2016, Sarah preferred not to act as HCS role because she is Taoism and cannot support some of the patient's medical treatment goals. She states the patient has another friend (Eran) who had previously participated in health care decision-making conversations with the patient and Sarah, and he would be willing to act in this role. She stated was willing remain HCS until further conversations can be had with the patient and new HCS form completed. Palliative care left a message with friend (Eran Guerrier) with Palliative care contact information. Unfortunately, Eran Guerrier never returned palliative care 's phone calls and the patient was discharged home. Palliative Care was consulted to assist with symptom management and to discuss with the patient/friends the benefits and burdens of his current illnesses and the options regarding future care. Patient was able to recall his two friends, Sarah and Eran, who were is neighbors before he was placed in the [facility]. Patient indicates that he would like his friend (Eran Guerrier) to act as his healthcare surrogate decision maker. Attempted to reach mr. Guerrier via telephone. Message left on his vm with Palliative care contact information. . Function/Cognitive Trajectory Patient can not describe functional/cognitive trajectory at this time. Per EMR , patient previously stated he was living in dependently and fully functioning prior to his initial hospitalization at [facility] in March,. The patient now lives at [facility]. He states he will likely be unable to return to his home secondary to his continued decline. Patient previously reported progressively worsening fatigue and weight loss. He states he has become more weak and has had worsening shortness of breath. . Review of Systems ROS Limitations: Altered Mental Status, Poor Historian Constitutional: COMPLAINS OF: Fatigue, Generalized weakness Psychiatric: COMPLAINS OF: Confusion Past Family Social History Coded Allergies: Influenza Virus Vaccines (Unverified Allergy, Unknown, 02/19/17) cephalexin (Unverified Allergy, Unknown, 02/19/17) levofloxacin (Unverified Allergy, Unknown, 02/19/17) moxifloxacin (Unverified Allergy, Unknown, 02/19/17) Past Medical History Past Medical History Coronary artery disease, stent to RCA 90 03/27/16 at [facility] Recent cardiac arrest, sepsis, possible seizures Urosepsis, recurrent UTI GI bleed CKD stage ??? Gout Iron deficiency anemia COPD CHF BPH Dysphasia Obesity Hypertension Hyperlipidemia Altered mental status Diabetes . Past Surgical History Toe amputation Arthroscopy Cataract surgery Feeding tube insertion Esophageal surgery Cardiac catheterization with stent to RCA 90 03/27/16 Cystoscopy 07/11/2016 Upper and lower endoscopy with findings of polyps and rectal ulcer . Reported Medications Tamsulosin (Tamsulosin HCl) 0.4 Mg Cap 0.4 Mg HS Plavix (Clopidogrel Bisulfate) 75 Mg Tab 75 Mg PO DAILY Garrard (Hydrocodone-Acetaminophen) 5 Mg-325 Mg Tab 1 Tab PO Q4H PRN Actical (Multiple Vitamins W/ Minerals) 1 Cap 1 Cap PO DAILY Milk of Magnesia Liq (Magnesium Hydroxide) 400 Mg/5 Ml Susp 15 Ml PO DAILY PRN Loperamide (Loperamide HCl) 2 Mg Cap 2 Mg PO DIRECTED PRN One capsule after each loose stool. Not to exceed 8 capsules per day. Lisinopril 5 Mg Tab 5 Mg PO DAILY Gabapentin 100 Mg Cap 100 Mg PO TID Ferrous Sulfate 325 Mg (65 Mg Iron) Tablet 325 Mg PO BIDPC Procrit Inj (Epoetin Alex) 2,000 Unit/Ml Inj 2,000 Units SQ SATURDAY Cymbalta DR (Duloxetine HCl) 20 Mg Capdr 40 Mg PO DAILY Caltrate 600+D Chew (Calcium Carbonate-Vitamin D Chew) 600-400 Mg-Unit Chew 1 Tab PO BID Baclofen 10 Mg Tab 10 Mg PO TID Omeprazole 20 Mg Tab 20 Mg PO DAILY Novolog Flexpen Inj (Insulin Aspart) 300 Unit/3 Ml Pen 1 Units SQ Gnp Melatonin (Melatonin) 3 Mg Tab Duoneb (Ipratropium-Albuterol Neb) 0.5-2.5 Mg/3 Ml Neb 1 Nebule INH Q4HR NEB Breo Ellipta Inh (Fluticasone/Vilanterol) 100-25 Mcg/Act Inh 1 Puff INH DAILY Use daily at the same time. Atorvastatin (Atorvastatin Calcium) 40 Mg Tab 40 Mg PO HS Allopurinol 100 Mg Tab 100 Mg PO DAILY . Current Medications Medications (Trade) Dose Ordered Sig/Shantelle Route Start Time Stop Time Status Last Admin (NS Flush) 2 ml UNSCH PRN IV FLUSH 11/22/17 19:15 (Heparin Inj) 5,000 units Q12H SQ 11/22/17 22:00 11/24/17 22:20 ([facility] Nursing Information) 1 Q361D XX 11/22/17 21:45 11/22/17 21:45 (Chlorhexidine 2% Cloth) 3 pack Taper DAILY@04 TOP 11/23/17 04:00 11/19/18 03:59 11/25/17 04:00 (Chlorhexidine 2% Cloth) 3 pack UNSCH PRN TOP 11/22/17 21:45 Piperacillin Sod/ Tazobactam Sod 50 ml @ 100 mls/hr Q8H IV 11/23/17 05:00 11/25/17 06:09 (NovoLOG SUPPLEMENTAL SCALE) 1 Q4H SQ 11/22/17 23:00 (Plavix) 75 mg DAILY PO 11/23/17 09:00 (Breo Ellipta 100-25 Inh) 1 puff DAILY INH 11/23/17 09:00 (Duoneb Neb) 1 ampule Q4HR NEB INH 11/23/17 00:00 11/25/17 08:12 (Flomax) 0.4 mg HS PO 11/23/17 21:00 11/24/17 22:19 (Pepcid Inj) 10 mg Q12H IV PUSH 11/23/17 11:00 11/25/17 09:39 Sodium Chloride 1,000 ml @ 100 mls/hr Q10H IV 11/24/17 12:00 11/25/17 06:12 (Trandate Inj) 10 mg Q4H PRN IV PUSH 11/24/17 12:15 11/24/17 13:11 (Albuterol Neb) 2.5 mg Q2HR NEB PRN NEB 11/24/17 16:45 (Norvasc) 5 mg DAILY OG-TUBE 11/24/17 20:15 11/25/17 09:39 . Family History Father at the age of 98, no known medical history per patient. Mother with heart disease, diabetes and "esophageal problem " ; She in her 60s. . Substance Use Tobacco: Long smoking history, quit in 03/2016. Alcohol: None known. Prescription med abuse: None known. Illicits: None known. . Psychosocial History Patient was in [place], [place]. He states he had no siblings. He moved to [place] while working with the [employer]. 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 Patient was at least one time. He was to [facility] for about 11 years. Together they had 3 boys. The patient states his children were taken away from there mother by the state, and he does not know where they ended up. . Spiritual/Cultural Factors Sikh fabien . Health Care Surrogate: Copy in medical record Date completed: Patient designated his friend, Sarah Pratt, as his healthcare surrogate on 11/12. . Health Care Surrogate(s): Patient designated his friend, Sarah Pratt, as his healthcare surrogate on 11/12. Of note, Sarah would prefer not to act as HCS because she is Taoism and cannot support some of the patient's medical treatment goals. She states the patient has another friend (Eran) who as participated in health care decision-making conversations with the patient and Sarah, and he would be willing to act in this role. Patient indicates he is comfortable either with Sarah or Eran acting in the role of healthcare surrogate decision maker. Sarah stated she would remain HCS until further conversations can be had with the patient and new HCS form completed. Message left for patient's friend, Eran , during his last admission in 11/2016 and again today 11/25/17 with palliative care contact information. . Documented care wishes: No documented care wishes have been completed other than the above mentioned HCS designation form. . Today's verbally stated goals: Patient is confused, shows limited insight and judgement toward his medical conditions. . Family/friends goals: Pending conversations with patient's family. . Ethical and Legal Issues No known ethical or legal issues impacting care at this time. . Physical Exam Vital Signs Date Time Temp Pulse Resp B/P (MAP) Pulse Ox O2 Delivery O2 Flow Rate FiO2 11/25/17 08:12 98 21 11/25/17 02:00 78 11/25/17 00:00 86 94 11/25/17 00:00 92 11/24/17 23:46 90 150/63 (92) 96 11/24/17 23:16 109 170/70 (103) 95 11/24/17 23:01 88 144/67 (92) 97 11/24/17 22:00 87 11/24/17 22:00 88 138/69 (92) 98 11/24/17 21:00 87 97 11/24/17 20:06 98 11/24/17 20:01 98.0 82 165/70 (101) 98 11/24/17 20:00 86 11/24/17 18:00 86 11/24/17 18:00 74 11/24/17 16:00 74 11/24/17 16:00 97.7 74 27 220/80 (126) 98 11/24/17 14:00 71 11/24/17 12:00 98.0 91 29 210/86 (127) 98 11/24/17 12:00 91 11/24/17 10:00 89 Exam CONSTITUTIONAL/GENERAL: This is an adequately nourished patient, in no apparent distress. TUBES/LINES/DRAINS: SKIN: No jaundice, rashes, or lesions. Ecchymoses on upper extremities. No wounds seen anteriorly. Skin temperature appropriate. Not diaphoretic. HEAD: Atraumatic. Normocephalic. EYES: Pupils equal and round and reactive. Extraocular motions intact. No scleral icterus. No injection or drainage. Fundi not examined. ENT: Hearing grossly normal. Nose without bleeding or purulent drainage. Throat without visible erythema, exudates, masses, or lesions. NECK: Trachea midline. Supple, nontender. No palpable thyroid enlargement or nodularity. CARDIOVASCULAR: Regular rate and rhythm without murmurs, gallops, or rubs. No JVD. Peripheral pulses symmetric. RESPIRATORY/CHEST: Symmetric, unlabored respirations. Clear to auscultation. Breath sounds equal bilaterally. No wheezes, rales, or rhonchi. GASTROINTESTINAL: Abdomen soft, non-tender, nondistended. No hepato-splenomegaly , or palpable masses. No guarding. Bowel sounds present. GENITOURINARY: Without palpable bladder distension. Yang catheter in place. MUSCULOSKELETAL: Extremities without clubbing, cyanosis, or edema. No joint tenderness or effusion noted. No calf tenderness. No mottling or clubbing. LYMPHATICS: No palpable cervical or supraclavicular adenopathy. NEUROLOGICAL: Awake and alert. Motor and sensory grossly within normal limits. Follows commands. Cognitively sharp. Moves all extremities. PSYCHIATRIC: No obvious anxiety/depression. no apparent hallucinations or other psychotic thought process. Diagnostic Tests Laboratory Laboratory Tests Test 11/22/17 18:43 11/22/17 19:38 11/22/17 22:59 11/23/17 00:00 White Blood Count 12.3 TH/MM3 (4.0-11.0) Red Blood Count 3.06 MIL/MM3 (4.50-5.90) Hemoglobin 8.7 GM/DL (13.0-17.0) Hematocrit 27.1 % (39.0-51.0) Mean Corpuscular Volume 88.7 FL (80.0-100.0) Mean Corpuscular Hemoglobin 28.4 PG (27.0-34.0) Mean Corpuscular Hemoglobin Concent 32.0 % (32.0-36.0) Red Cell Distribution Width 15.5 % (11.6-17.2) Platelet Count 375 TH/MM3 (150-450) Mean Platelet Volume 5.6 FL (7.0-11.0) Neutrophils (%) (Auto) 84.0 % (16.0-70.0) Lymphocytes (%) (Auto) 4.6 % (9.0-44.0) Monocytes (%) (Auto) 6.8 % (0.0-8.0) Eosinophils (%) (Auto) 4.0 % (0.0-4.0) Basophils (%) (Auto) 0.6 % (0.0-2.0) Neutrophils # (Auto) 10.3 TH/MM3 (1.8-7.7) Lymphocytes # (Auto) 0.6 TH/MM3 (1.0-4.8) Monocytes # (Auto) 0.8 TH/MM3 (0-0.9) Eosinophils # (Auto) 0.5 TH/MM3 (0-0.4) Basophils # (Auto) 0.1 TH/MM3 (0-0.2) CBC Comment DIFF FINAL Differential Comment Prothrombin Time 10.9 SEC (9.8-11.6) Prothromb Time International Ratio 1.1 RATIO Activated Partial Thromboplast Time 34.5 SEC (24.3-30.1) Urine Color LIGHT-YELLOW (YELLW/STRAW) Urine Turbidity CLOUDY (CLEAR) Urine pH 7.0 (5.0-8.5) Urine Specific [place] 1.016 (1.002-1.035) Urine Protein 100 mg/dL (NEG-TRACE) Urine Glucose (UA) NEG mg/dL (NEG) Urine Ketones NEG mg/dL (NEG) Urine Occult Blood MOD (NEG) Urine Nitrite NEG (NEG) Urine Bilirubin NEG (NEG) Urine Urobilinogen LESS THAN 2.0 MG/DL (LESS Urine Leukocyte Esterase LARGE (NEG) Urine RBC 35 /hpf (0-3) Urine WBC /hpf (0-5) Urine WBC Clumps FEW (NONE) Urine Amorphous Sediment MOD Urine Bacteria MANY /hpf (NONE) Microscopic Urinalysis Comment CATH-CULTURE IND Blood Urea Nitrogen 49 MG/DL (7-18) 46 MG/DL (7-18) Creatinine 3.39 MG/DL (0.60-1.30) 3.18 MG/DL (0.60-1.30) Random Glucose 121 MG/DL (74-106) 103 MG/DL (74-106) Calcium Level 9.4 MG/DL (8.5-10.1) 9.1 MG/DL (8.5-10.1) Sodium Level 134 MEQ/L (136-145) 140 MEQ/L (136-145) Potassium Level 7.0 MEQ/L (3.5-5.1) 7.2 MEQ/L (3.5-5.1) 5.7 MEQ/L (3.5-5.1) Chloride Level 103 MEQ/L (98-107) 108 MEQ/L (98-107) Carbon Dioxide Level 25.2 MEQ/L (21.0-32.0) 24.4 MEQ/L (21.0-32.0) Anion Gap 6 MEQ/L (5-15) 8 MEQ/L (5-15) Estimat Glomerular Filtration Rate 18 ML/MIN (>89) 19 ML/MIN (>89) Lactic Acid Level 0.9 mmol/L (0.4-2.0) Magnesium Level 2.4 MG/DL (1.5-2.5) Total Bilirubin 0.2 MG/DL (0.2-1.0) 0.2 MG/DL (0.2-1.0) Direct Bilirubin 0.1 MG/DL (0.0-0.2) Indirect Bilirubin 0.1 MG/DL (0.0-0.8) Aspartate Amino Transf (AST/SGOT) 16 U/L (15-37) 13 U/L (15-37) Alanine Aminotransferase (ALT/SGPT) 20 U/L (12-78) 19 U/L (12-78) Alkaline Phosphatase 94 U/L (45-117) 90 U/L (45-117) Total Creatine Kinase 43 U/L (39-308) Troponin I LESS THAN 0.02 NG/ML Total Protein 7.9 GM/DL (6.4-8.2) 7.5 GM/DL (6.4-8.2) Albumin 2.4 GM/DL (3.4-5.0) 2.3 GM/DL (3.4-5.0) Ammonia 19 MCMOL/L (11-32) Nasal Screen MRSA (PCR) MRSA DETECTED (NOT DETECT) Test 11/23/17 03:19 11/23/17 15:54 11/24/17 03:30 11/24/17 16:53 White Blood Count 10.1 TH/MM3 (4.0-11.0) 7.8 TH/MM3 (4.0-11.0) Red Blood Count 2.72 MIL/MM3 (4.50-5.90) 2.75 MIL/MM3 (4.50-5.90) Hemoglobin 7.7 GM/DL (13.0-17.0) 7.9 GM/DL (13.0-17.0) Hematocrit 24.1 % (39.0-51.0) 24.3 % (39.0-51.0) Mean Corpuscular Volume 88.7 FL (80.0-100.0) 88.7 FL (80.0-100.0) Mean Corpuscular Hemoglobin 28.4 PG (27.0-34.0) 28.8 PG (27.0-34.0) Mean Corpuscular Hemoglobin Concent 32.0 % (32.0-36.0) 32.5 % (32.0-36.0) Red Cell Distribution Width 15.1 % (11.6-17.2) 15.9 % (11.6-17.2) Platelet Count 313 TH/MM3 (150-450) 321 TH/MM3 (150-450) Mean Platelet Volume 5.4 FL (7.0-11.0) 5.7 FL (7.0-11.0) Neutrophils (%) (Auto) 82.4 % (16.0-70.0) 84.5 % (16.0-70.0) Lymphocytes (%) (Auto) 5.4 % (9.0-44.0) 6.0 % (9.0-44.0) Monocytes (%) (Auto) 8.4 % (0.0-8.0) 4.8 % (0.0-8.0) Eosinophils (%) (Auto) 3.4 % (0.0-4.0) 3.8 % (0.0-4.0) Basophils (%) (Auto) 0.4 % (0.0-2.0) 0.9 % (0.0-2.0) Neutrophils # (Auto) 8.3 TH/MM3 (1.8-7.7) 6.6 TH/MM3 (1.8-7.7) Lymphocytes # (Auto) 0.5 TH/MM3 (1.0-4.8) 0.5 TH/MM3 (1.0-4.8) Monocytes # (Auto) 0.9 TH/MM3 (0-0.9) 0.4 TH/MM3 (0-0.9) Eosinophils # (Auto) 0.3 TH/MM3 (0-0.4) 0.3 TH/MM3 (0-0.4) Basophils # (Auto) 0.0 TH/MM3 (0-0.2) 0.1 TH/MM3 (0-0.2) CBC Comment DIFF FINAL DIFF FINAL Differential Comment Blood Urea Nitrogen 46 MG/DL (7-18) 38 MG/DL (7-18) Creatinine 3.16 MG/DL (0.60-1.30) 2.86 MG/DL (0.60-1.30) Random Glucose 111 MG/DL (74-106) 120 MG/DL (74-106) Total Protein 7.0 GM/DL (6.4-8.2) Albumin 2.1 GM/DL (3.4-5.0) Calcium Level 8.8 MG/DL (8.5-10.1) 8.6 MG/DL (8.5-10.1) Magnesium Level 2.3 MG/DL (1.5-2.5) 2.1 MG/DL (1.5-2.5) Alkaline Phosphatase 83 U/L (45-117) Aspartate Amino Transf (AST/SGOT) 14 U/L (15-37) Alanine Aminotransferase (ALT/SGPT) 17 U/L (12-78) Total Bilirubin 0.2 MG/DL (0.2-1.0) Sodium Level 140 MEQ/L (136-145) 146 MEQ/L (136-145) Potassium Level 6.3 MEQ/L (3.5-5.1) 5.9 MEQ/L (3.5-5.1) 5.0 MEQ/L (3.5-5.1) Chloride Level 109 MEQ/L (98-107) 115 MEQ/L (98-107) Carbon Dioxide Level 26.0 MEQ/L (21.0-32.0) 22.7 MEQ/L (21.0-32.0) Anion Gap 5 MEQ/L (5-15) 8 MEQ/L (5-15) Estimat Glomerular Filtration Rate 19 ML/MIN (>89) 22 ML/MIN (>89) Phosphorus Level 4.2 MG/DL (2.5-4.9) Blood Gas Puncture Site LT RADIAL Blood Gas Patient Temperature 98.6 Blood Gas HCO3 21 mmol/L (22-26) Blood Gas Base Excess -3.7 mmol/L (-2-2) Blood Gas Oxygen Saturation 92 % (90-100) Arterial Blood pH 7.34 (7.380-7.420) Arterial Blood Partial Pressure CO2 41 mmHg (38-42) Arterial Blood Partial Pressure O2 74 mmHg (61-120) Arterial Blood Oxygen Content 10.1 Vol % (12.0-20.0) Arterial Blood Carboxyhemoglobin 1.1 % (0-4) Arterial Blood Methemoglobin 1.5 % (0-2) Blood Gas Hemoglobin 7.7 G/DL (12.0-16.0) Blood Gas Inspired Oxygen 21 % Test 11/25/17 00:00 11/25/17 07:43 Urine Color LIGHT-YELLOW (YELLW/STRAW) Urine Turbidity CLEAR (CLEAR) Urine pH 7.5 (5.0-8.5) Urine Specific [place] 1.012 (1.002-1.035) Urine Protein 300 mg/dL (NEG-TRACE) Urine Glucose (UA) TRACE mg/dL (NEG) Urine Ketones NEG mg/dL (NEG) Urine Occult Blood MOD (NEG) Urine Nitrite NEG (NEG) Urine Bilirubin NEG (NEG) Urine Urobilinogen LESS THAN 2.0 MG/DL (LESS Urine Leukocyte Esterase NEG (NEG) Urine RBC /hpf (0-3) Urine WBC 14 /hpf (0-5) Microscopic Urinalysis Comment CATH-CULTURE IND Urine Random Creatinine 30.0 MG/DL Urine Random Sodium 123 MEQ/L White Blood Count 9.3 TH/MM3 (4.0-11.0) Red Blood Count 2.62 MIL/MM3 (4.50-5.90) Hemoglobin 7.5 GM/DL (13.0-17.0) Hematocrit 23.2 % (39.0-51.0) Mean Corpuscular Volume 88.4 FL (80.0-100.0) Mean Corpuscular Hemoglobin 28.7 PG (27.0-34.0) Mean Corpuscular Hemoglobin Concent 32.4 % (32.0-36.0) Red Cell Distribution Width 15.2 % (11.6-17.2) Platelet Count 312 TH/MM3 (150-450) Mean Platelet Volume 5.4 FL (7.0-11.0) Neutrophils (%) (Auto) 86.5 % (16.0-70.0) Lymphocytes (%) (Auto) 5.2 % (9.0-44.0) Monocytes (%) (Auto) 4.6 % (0.0-8.0) Eosinophils (%) (Auto) 2.9 % (0.0-4.0) Basophils (%) (Auto) 0.8 % (0.0-2.0) Neutrophils # (Auto) 8.1 TH/MM3 (1.8-7.7) Lymphocytes # (Auto) 0.5 TH/MM3 (1.0-4.8) Monocytes # (Auto) 0.4 TH/MM3 (0-0.9) Eosinophils # (Auto) 0.3 TH/MM3 (0-0.4) Basophils # (Auto) 0.1 TH/MM3 (0-0.2) CBC Comment DIFF FINAL Differential Comment Blood Urea Nitrogen 32 MG/DL (7-18) Creatinine 2.86 MG/DL (0.60-1.30) Random Glucose 105 MG/DL (74-106) Total Protein 7.2 GM/DL (6.4-8.2) Albumin 2.1 GM/DL (3.4-5.0) Calcium Level 8.8 MG/DL (8.5-10.1) Phosphorus Level 4.1 MG/DL (2.5-4.9) Magnesium Level 2.0 MG/DL (1.5-2.5) Alkaline Phosphatase 78 U/L (45-117) Aspartate Amino Transf (AST/SGOT) 16 U/L (15-37) Alanine Aminotransferase (ALT/SGPT) 16 U/L (12-78) Total Bilirubin 0.3 MG/DL (0.2-1.0) Sodium Level 146 MEQ/L (136-145) Potassium Level 4.4 MEQ/L (3.5-5.1) Chloride Level 114 MEQ/L (98-107) Carbon Dioxide Level 23.3 MEQ/L (21.0-32.0) Anion Gap 9 MEQ/L (5-15) Estimat Glomerular Filtration Rate 22 ML/MIN (>89) Ammonia 21 MCMOL/L (11-32) B-Type Natriuretic Peptide 1485 PG/ML (0-100) Result Diagram: 11/25/17 0743 11/25/17 0743 Microbiology Microbiology Date/Time Source Procedure Growth Status 11/23/17 19:55 Blood Peripheral Aerobic Blood Culture - Preliminary NO GROWTH IN 1 DAY Resulted 11/23/17 19:55 Blood Peripheral Anaerobic Blood Culture - Preliminary NO GROWTH IN 1 DAY Resulted 11/23/17 19:50 Blood Peripheral Aerobic Blood Culture - Preliminary NO GROWTH IN 1 DAY Resulted 11/23/17 19:50 Blood Peripheral Anaerobic Blood Culture - Preliminary NO GROWTH IN 1 DAY Resulted 11/22/17 20:50 Blood Peripheral Aerobic Blood Culture - Preliminary NO GROWTH IN 2 DAYS Resulted 11/22/17 20:50 Blood Peripheral Anaerobic Blood Culture - Preliminary NO GROWTH IN 2 DAYS Resulted 11/22/17 20:45 Blood Peripheral Aerobic Blood Culture - Preliminary NO GROWTH IN 2 DAYS Resulted 11/22/17 20:45 Anaerobic Blood Culture - Preliminary Staph Sp Coagulase Positive Resulted 11/24/17 09:28 Stool Stool Stool Occult Blood (CARLOS) - Final HEMOCCULT NEGATIVE Complete 11/25/17 00:00 Urine Catheterized Urine Urine Culture Pending Received 11/22/17 18:43 Urine Catheterized Urine Urine Culture - Final Complete Patient/Family Conference Issues Discussed: * Palliative care role, purpose, approach * Additional medical, psychosocial, and spiritual history * Patients general health, functional status, and cognitive changes in the months leading up to the current hospitalization * Patient/family understanding of the current medical problems * Patient/family understanding of prognosis * Patients goals of care as best understood from advance directives and/or conversations and/or values * Current medical treatment options and benefits/burdens of those options * Likely scenarios comparing ongoing aggressive care with a transition to comfort measures only * Questions answered to the best of my ability * Palliative care contact information provided Assessment and Plan Disease Oriented Problem List: (1) UTI (urinary tract infection) (2) Acute on chronic renal failure (3) Hyperkalemia (4) Acute metabolic encephalopathy (5) HTN (hypertension) (6) CHF (congestive heart failure) (7) CAD (coronary artery disease) (8) Obesity Symptom Scale: Pertinent Non-Medical Issues Psychosocial: Patient was in [place], [place]. He states he had no siblings. He moved to [place] while working with the [employer]. 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 He was to [facility] for about 11 years. Together they had 3 boys. The patient states his children were taken away from there mother by the state, and he does not know where they ended up. Spiritual: Sikh fabien Legal: Patient's friend, Sarah Pratt, is the designated health care surrogate. Ethical issues impacting care: None known . Important Contacts Sarah Pratt, friend: [phone] Eran Guerrier,friend: [phone] . Prognosis Patient is a 77 year old male with a complex medical history that includes CAD, previous cardiac arrest, previous urosepsis/recurrent UTI, GI bleed, CKD, COPD, CHF, hypertension and altered mental status. H has been [facility] since an acute decline that began in March,. Given the patient's advanced age, recent acute decline and complex medical history, it is likely he will continue to experience setbacks and complications with associated rehospitalization. His overall prognosis is poor. . Code Status: Full Code Plan * FULL CODE * Decision-making: Patient has limited insight and judgment toward his medical conditions. Is unclear if he will regain capacity to participate in medical decision making. Patient designated his friend, Sarah Pratt, as his healthcare surrogate on 11/12/2016. * Of note, Sarah would prefer not to act as HCS because she is Taoism and cannot support some of the patient's medical treatment goals. She states the patient has another friend (Eran) who as participated in health care decision-making conversations with the patient and Sarah, and he would be willing to act in this role. Patient indicates he is comfortable either with Sarah or Eran acting in the role of healthcare surrogate decision maker. Sarah stated she would remain HCS until further conversations can be had with the patient and new HCS form completed. Message left for patient's friend, Eran , during his last admission in 11/2016 and again today 11/25/17 with palliative care contact information * Aggressive goals pending conversation with family/friends. * Symptom managementdebility: Per EMR, patient previously stated he was living in dependently and fully functioning prior to his initial hospitalization at [facility] in March,. The patient now lives at [facility]. He states he will likely be unable to return to his home secondary to his continued decline. Patient previously reported progressively worsening fatigue and weight loss. He states he has become more weak and has had worsening shortness of breath. . * Symptom managementencephalopathy: Presented to [facility] on 11/22/17 via EMS for evaluation of altered mental status. Per report, patient had become increasingly confused and somnolent over the previous 24-48 hours. He is communicative at baseline but would not answer questions or follow commands on exam. CT brain showed mild atrophy; no acute abnormalities were seen. * Palliative care attempted to contact patient's friends, Sarah and Eran. messages left on voicemail with Palliative contact information. * Palliative care will continue to follow patient throughout his hospitalization to establish trust, assist with symptom management and clarification of medical treatment goals. . Thank you for the opportunity to participate in the care of Mr. Rosenberg. . Attestation To help prompt me to consider important information that might be impacting today's encounter and assessment, information from prior notes written by myself or my colleagues may have been "brought forward" into today's note. My signature on this note, however, is an attestation that I personally performed the exam, history, and/or decision-making noted today, and, unless otherwise indicated, the interactions with patient, family, and staff as well as the review of records all occurred today. I also attest that the listed assessment and stated plan reflect my best clinical judgment today based on the combination of historical information, prior notes, and today's exam/ interactions. When time spent is documented, it refers only to time spent today by the signer, or if indicated, combined time spent today by collaborating physician/nurse practitioner. . Margarita Frank November 25, 2017 10:44
--- NOTE | 2017-11-25 12:33 | HHI.CCPN ---
Subjective Remarks/Hospital Course 77-year-old male with past medical history of CAD, CHF, COPD, chronic kidney disease stage III, GI bleed, cardiac arrest in 2017, diabetes, pacemaker placement who was brought to the emergency department from [facility] for altered mentation. Patient usually is communicative but last 24-48 hours had been confused and more lethargic somnolent. A CT of the head in the ER was negative for any acute findings as well as chest x-ray was also negative. CBC shows leukocytosis 12.3. CMP showed K 7.2, BUN 49, creatinine 3.39. Patient has a chronic Roman and history of recurrent UTI. UA shows moderate occult blood, large leukocyte esterase, innumerable WBC, indicating severe UTI and urosepsis. In the ED patient received 2 L normal saline bolus, and for hyperkalemia treatment received sodium bicarb 1 amp IV, 1 amp of dextrose, 10 units IV regular insulin, 1 g calcium gluconate after IV fluids. Patient started on Zosyn 2.25 g for UTI. I evaluated the patient in the ED. He is lethargic but wakes up to sternal rub. States his name follows commands but falls right back to sleep. His metabolic encephalopathy secondary to his sepsis. Cultures have been drawn I will continue Zosyn, give 1 dose of vancomycin. He is protecting airway and does not need the patient at this time. Stat repeat CMP ordered 11/23 Oriented to self but remains confused. Potassium 6.3 this morning. Creatinine slight downtrend to 3.16. Making urine. Medically treating hyperkalemia again now with kayexalate/insulin/glucose. Records from [facility] state creatinine was 3.9 on 10/18/16. Renal u/s with bilateral hydronephrosis, now Roman in place. Called and discussed with longterm. He had roman in Aug and again in early october 2017, not a chronic roman, has appt in January for Dr. Duff but reportedly had never seen before. He is full code and per [facility] does not have advance directives on file. No family contact information. There is contact information for friend. 11/24 Potassium down to 5 this morning. Creatinine downtrending. Urine culture felt to be contaminant. He remains confused and reportedly he is conversant at baseline per [facility]. Weaned off NC and now on RA. Coughing. Subjective: 11/25: Remains disoriented currently. On nasal cannula. Objective Vital Signs Date Time Temp Pulse Resp B/P (MAP) Pulse Ox O2 Delivery O2 Flow Rate FiO2 11/25/17 10:00 87 11/25/17 08:12 98 21 11/25/17 08:00 98.0 137/61 (86) 11/24/17 16:00 27 11/23/17 21:15 Nasal Cannula 1.00 Intake and Output 11/25/17 11/25/17 11/26/17 08:00 16:00 00:00 Intake Total 1122 ml Output Total 1200 ml Balance -78 ml Result Diagram: 11/25/17 0743 11/25/17 0743 Other Results Microbiology Date/Time Source Procedure Growth Status 11/24/17 09:28 Stool Stool Stool Occult Blood (CARLOS) - Final HEMOCCULT NEGATIVE Complete 11/22/17 18:43 Urine Catheterized Urine Urine Culture - Final Complete Laboratory Tests Test 11/24/17 16:53 Blood Gas Puncture Site LT RADIAL Blood Gas Patient Temperature 98.6 Blood Gas HCO3 21 mmol/L (22-26) Blood Gas Base Excess -3.7 mmol/L (-2-2) Blood Gas Oxygen Saturation 92 % (90-100) Arterial Blood pH 7.34 (7.380-7.420) Arterial Blood Partial Pressure CO2 41 mmHg (38-42) Arterial Blood Partial Pressure O2 74 mmHg (61-120) Arterial Blood Oxygen Content 10.1 Vol % (12.0-20.0) Arterial Blood Carboxyhemoglobin 1.1 % (0-4) Arterial Blood Methemoglobin 1.5 % (0-2) Blood Gas Hemoglobin 7.7 G/DL (12.0-16.0) Blood Gas Inspired Oxygen 21 % Imaging CT of the head and chest x-ray shows no acute disease Objective Remarks GENERAL: Well-nourished, well-developed, obese elderly male patient, lethargic and confused. SKIN: Skin warm/dry. HEAD: Normocephalic. Atraumatic. ENT: Oral mucosa dry, airway patent. NG tube in place EYES: No scleral icterus. No injection or drainage. NECK: Supple, trachea midline. No JVD or lymphadenopathy. CARDIOVASCULAR: Regular rate and rhythm, 3 out of 6 systolic murmur left sternal border. RESPIRATORY: Clear to auscultation bilaterally without wheezes rales or rhonchi. Diminished bibasilar. GASTROINTESTINAL: Abdomen soft, non-tender, nondistended. Obese with multiple well healed scars. : Roman in place, light yellow urine in bag. Had cloudy urine with exudate at urethra meatus which is improved MUSCULOSKELETAL: No cyanosis, or edema. s/p right big toe amputation NEURO: Patient is lethargic. Awakens to voice, answers a few yes/no questions. Does not answer questions of orientation to follows commands in all 4 extremities briefly, falls back to sleep. A/P Assessment and Plan NEURO: Acute metabolic encephalopathy -Altered mentation was felt to be secondary to sepsis but not yet improving. - CT brain 11/22 - negative -ABG did not reveal elevated PCO2, ammonia level normal. -Check EEG. May need MRI if mental status not improving. -Hold any sedating medications -Hold Big Arm, hold Neurontin, Cymbalta RESP: History of COPD -Nasal cannula oxygen to keep SaO2 >90% -DuoNeb every 4 hours scheduled and as needed. Albuterol q2. -Continue Breo Ellipta CV: History of coronary artery disease History of cardiac arrest -Recieved Normal saline IV fluids 2L bolus then 125 ml per hour -nephrology changed IVF to 1/2 NS @ 100/hr. -Coughing and checked CXR which looked like vascular congestion. bedside ultrasound to evaluate volume status further and EF appears ~55%, no significant pulmonary edema on lung u/s, unable to get good window for IVC. He is on RA so will continue IVF as he has resolving SHAHLA. Lasix remains on hold, will monitor for volume overload and resume as necessary. -2d echo last year showed EF 60% Continue Plavix HTN -Remains hypertensive, unable to swallow meds. Hydralazine IV unavailable. -Place NGT. Norvasc 5 mg po daily. Labetalol prn . -Hold lisinopril hold statins due to worsening renal failure, GI: h/o Dysphagia - followed by [facility] at [facility], swallows pills at baseline -Does not pass swallow eval. Placed NGT. - famotidine /ENDO: Acute on chronic kidney disease Acute obstructive uropathy. Hyperkalemia Type 2 diabetes -Monitor BMP, Roman in place. - Continuing flomax 0.4 mg po qhs that he is on chronically. Will need urology followup -Patient received bicarb, calcium gluconate, insulin IV push followed by D50 for treatment of hyperkalemia. -With Potassium 6.3, will give additional Insulin/D50/kayexelate 30. Bicarb is 36. -Potassium now normalized. -Nephrology Dr. Lima following. -Renal ultrasound shows bilateral hydronephrosis. ID: [id number] Severe sepsis -Follow-up on blood and urine culture -IV vancomycin 1 GM x1 blood cultures drawn 11/22 are negative. urine culture -no dominant organism on culture but had purulence at meatus, cloudy urine and urinary obstruction that was highly suspicious so will repeat U /a and culture with new catheter. continue Zosyn currently. HEME: -Monitor CBC, CMP PROPH: -Bilateral lower extremity SCDs. Sq Heparin/ IV Famotidine LINES: -Utilize peripheral IVs, Patient is reportedly designated full code at [facility]. He does not have an advanced directive on file at the [facility]. There is no family contact. There is contact information for a friend named Sarah Pratt who was a neighbor but she states she was never formally designated his healthcare surrogate. She was helping him with grocery shopping and finances when he was living at home. She states he has no family. She states his closest friend who used to take him to doctor appointments was Eran Vance (spelling unknown) , . Patient is currently not capacitated for medical decision making and it is unclear who would make medical decisions on his behalf. Consult palliative care. FULL CODE Level 2 F/u. King Dye MD November 25, 2017 12:33
--- NOTE | 2017-11-25 13:39 | HHI.NPPN ---
Subjective Additional Remarks Remains confused, no apparent distress Objective Data Data Vital Signs Date Time Temp Pulse Resp B/P (MAP) Pulse Ox O2 Delivery O2 Flow Rate FiO2 11/25/17 12:00 85 11/25/17 10:00 87 11/25/17 08:12 98 21 11/25/17 08:00 80 11/25/17 08:00 98.0 81 137/61 (86) 98 11/25/17 02:00 78 11/25/17 00:00 86 94 11/25/17 00:00 92 11/24/17 23:46 90 150/63 (92) 96 11/24/17 23:16 109 170/70 (103) 95 11/24/17 23:01 88 144/67 (92) 97 11/24/17 22:00 87 11/24/17 22:00 88 138/69 (92) 98 11/24/17 21:00 87 97 11/24/17 20:06 98 11/24/17 20:01 98.0 82 165/70 (101) 98 11/24/17 20:00 86 11/24/17 18:00 86 11/24/17 18:00 74 11/24/17 16:00 74 11/24/17 16:00 97.7 74 27 220/80 (126) 98 11/24/17 14:00 71 -: 11/25/17 0743 11/25/17 0743 Microbiology 11/25/17 Urine Culture, Received Pending Physical Exam General Appearance: Well Developed, Well Nourished, No Acute Distress Neck Neck Exam: Neck Supple Pulmonary Resp Exam: Decreased Bases Cardiology CV Exam: Regular, Normal Sinus Rhythm Gastrointestinal/Abdomen GI Exam: Soft, Non-Tender, Bowel Sounds Present Genitourinary Exam: Clear Urine Musculoskeletal MS Exam: Joints Intact Integumentary Skin Exam: Clear, Warm, Dry, Intact Extremeties Extremities Exam: No Edema Neurologic Neuro Exam: Awake Assessment/Plan Problem List: (1) Acute on chronic renal failure ICD Codes: N17.9 - Acute kidney failure, unspecified; N18.9 - Chronic kidney disease, unspecified Status: Acute Plan: Unclear baseline creatinine. Creatinine 3.9 in the [facility] 10/2017 One year ago, the patient had an episode of acute kidney injury where his creatinine ranged between 4.8 and 1.6. CKD likely due to DM/HTN. 100 protein in U/A SHAHLA secondary to obstructive uropathy, with hydronephrosis on ultrasound. Clinically volume depleted as well. Leave roman in place - apparently had planned for outpatient evaluation. 2.8 L UOP/ 24 hours. recommended to follow as out patient He may be near his baseline, continue to closely monitor renal function. Creatinine 3.1 -> 2.8 ->2.8 Continues on IVFs: slightly elevated Na, acidosis improved - will change IVFs to 1/2 NS @100cc/hour. (2) UTI (urinary tract infection) ICD Codes: N39.0 - Urinary tract infection, site not specified Status: Acute Plan: Urinalysis suggestive of urinary tract infection. The patient HAS AN ALLERGY TO QUINOLONES. He is on antibiotics with Zosyn as well as was given at 1 dose of vancomycin. Closely monitor renal function and renal dose antibiotics as possible. (3) Hyperkalemia ICD Codes: E87.5 - Hyperkalemia Status: Acute Plan: Initial hyperkalemia with K 7.2 - medically managed. Improving K+ at 5.0 now, continue to monitor. (4) Acute metabolic encephalopathy ICD Codes: G93.41 - Metabolic encephalopathy Plan: apparently conversational in NH - possible AMS due to UTI. Continue to monitor. Problem Qualifiers (1) UTI (urinary tract infection): Qualified Codes: N39.0 - Urinary tract infection, site not specified; R31.9 - Hematuria, unspecified Taylor Gold MD November 25, 2017 13:39
[2017-11-25] MEDS: CLOPIDOGREL 75 MG TAB PO SCH (13:54)
[2017-11-25] MEDS: LABETALOL HCL 100 MG/20 ML VIAL IV PUSH PRN ×2 (17:53→21:29)
--- NOTE | 2017-11-25 20:35 | MG ---
cc: Reese Hsieh MD ELECTROENCEPHALOGRAM RECORD NUMBER: [id number]. DESCRIPTION: Hyperventilation not performed. Confusion, slurred speech, anemia. Diffuse 5 Hz, 60 microvolt rhythm is seen. Some triphasic appearing waves are seen, which is synchronous and symmetric. Other times 6 Hz diffuse rhythm appears and is normal appearing. Photic stimulation was performed without significant posterior driving. IMPRESSION: Triphasic waves consistent with a severe diffuse encephalopathy. Could increase the risk for seizure. Clinical correlation is needed. MD HUNG Lemus/SHELL , 08:15 PM , 08:34 PM
[2017-11-25] MEDS: TAMSULOSIN HCL 0.4 MG CAP PO SCH (21:24)
[2017-11-26] VITALS (16 sets, daily range): BP systolic 149–175; BP diastolic 63–74; PULSE 73–91; RESP 20–22; TEMP 97.3–98.6; O2SAT 47–100
[2017-11-26] MEDS: RESP: ALBUTEROL 2.5 MG/IPRATROPIUM 0.5 MG NEB (SCH) INH ×5 (00:22→20:35)
[2017-11-26] MEDS: INSULIN ASPART SUPPLEMENTAL SCALE SQ SCH ×6 (03:00→23:00)
[2017-11-26] MEDS: CHLORHEXIDINE GLUCONATE 2 % 1 PACK (2 CLOTHS) TOP SCH (04:00)
[2017-11-26 04:32] LABS: BICARBONATE 22.5 MEQ/L (21.0-32.0); CALCIUM 8.7 MG/DL (8.5-10.1); CREATININE 2.85 MG/DL (0.60-1.30)
[2017-11-26] MEDS: SODIUM CHLOR 0.45% 1000 ML INJ 1,000 ML IV SCH ×2 (05:01→14:43)
[2017-11-26] MEDS: PIPERACIL-TAZO 2.25 GM PREMIX 50 ML IV SCH ×4 (05:03→23:28)
[2017-11-26] MEDS: amLODIPine BESYLATE 5 MG TAB OG-TUBE SCH (08:24)
[2017-11-26] MEDS: CLOPIDOGREL 75 MG TAB PO SCH (08:24)
[2017-11-26] MEDS: FLUTICASONE 100 MCG/VILANTEROL 25 MCG INHALER INH SCH (09:00)
[2017-11-26] MEDS: HEPARIN SODIUM - SQ 10,000 UNITS/ML VIAL SQ SCH ×2 (10:00→20:26)
--- NOTE | 2017-11-26 11:34 | HHI.NPPN ---
Subjective Additional Remarks no apparent distress Objective Data Data Vital Signs Date Time Temp Pulse Resp B/P (MAP) Pulse Ox O2 Delivery O2 Flow Rate FiO2 11/26/17 10:00 83 11/26/17 08:02 100 Nasal Cannula 4.00 11/26/17 08:00 86 11/26/17 08:00 97.5 86 149/63 (91) 99 11/26/17 06:00 88 11/26/17 04:00 89 11/26/17 04:00 97.6 89 22 175/74 (107) 94 11/26/17 03:09 94 11/26/17 02:00 91 11/26/17 00:24 99 11/26/17 00:00 81 11/26/17 00:00 98.6 81 22 151/67 (95) 98 11/25/17 22:00 83 11/25/17 20:00 82 11/25/17 20:00 98.7 82 22 192/82 (118) 99 11/25/17 18:00 90 11/25/17 16:00 97.5 84 170/80 (110) 99 11/25/17 16:00 84 11/25/17 14:00 91 11/25/17 12:00 97.0 85 107/55 (72) 96 11/25/17 12:00 85 -: 11/25/17 0743 11/26/17 0327 Physical Exam General Appearance: Well Developed, Well Nourished, No Acute Distress Neck Neck Exam: Neck Supple Pulmonary Resp Exam: Decreased Bases Cardiology CV Exam: Regular, Normal Sinus Rhythm Gastrointestinal/Abdomen GI Exam: Soft, Non-Tender, Bowel Sounds Present Genitourinary Exam: Clear Urine Musculoskeletal MS Exam: Joints Intact Integumentary Skin Exam: Clear, Warm, Dry, Intact Extremeties Extremities Exam: No Edema Neurologic Neuro Exam: Awake Assessment/Plan Problem List: (1) Acute on chronic renal failure ICD Codes: N17.9 - Acute kidney failure, unspecified; N18.9 - Chronic kidney disease, unspecified Status: Acute Plan: Unclear baseline creatinine. Creatinine 3.9 in the [facility] 10/2017 One year ago, the patient had an episode of acute kidney injury where his creatinine ranged between 4.8 and 1.6. CKD likely due to DM/HTN. 100 protein in U/A SHAHLA secondary to obstructive uropathy, with hydronephrosis on ultrasound. Clinically volume depleted as well. Leave roman in place - apparently had planned for outpatient evaluation. 1.5 L UOP/ 24 hours. recommended to follow as out patient hematuria subsiding He may be near his baseline, continue to closely monitor renal function. Creatinine 3.1 -> 2.8 ->2.8->2.8 Continues on IVFs: slightly elevated Na, acidosis improved - will change IVFs to 1/2 NS @100cc/hour. (2) UTI (urinary tract infection) ICD Codes: N39.0 - Urinary tract infection, site not specified Status: Acute Plan: Urinalysis suggestive of urinary tract infection. The patient HAS AN ALLERGY TO QUINOLONES. He is on antibiotics with Zosyn as well as was given at 1 dose of vancomycin. Closely monitor renal function and renal dose antibiotics as possible. (3) Hyperkalemia ICD Codes: E87.5 - Hyperkalemia Status: Acute Plan: Initial hyperkalemia with K 7.2 - medically managed. Improving K+ at 5.0 now, continue to monitor. (4) Acute metabolic encephalopathy ICD Codes: G93.41 - Metabolic encephalopathy Plan: apparently conversational in NH - possible AMS due to UTI. Continue to monitor. Problem Qualifiers (1) UTI (urinary tract infection): Qualified Codes: N39.0 - Urinary tract infection, site not specified; R31.9 - Hematuria, unspecified Taylor Gold MD November 26, 2017 11:34
[2017-11-26] MEDS: FAMOTIDINE 20 MG/2 ML VIAL IV PUSH SCH ×2 (11:54→23:28)
--- NOTE | 2017-11-26 14:16 | HHI.HCPN ---
Reason for visit a. To assist with evaluation and management of symptoms including: pain, debility, encephalopathy b. To assist medical decision maker(s) with: better understanding of current medical conditions; weighing benefits/burdens of medical treatment options; making medical treatment decisions. . Subjective/Interval History Mr. Rosenberg is a 77 year old male admitted 11/22/17 for management hyperkalemia, acute renal failure, UTI and altered mental status. Follow-up visit for symptom management of pain, debility and encephalopathy as well as clarification of medical treatment goals. Hemodynamically stable; oxygen saturations in the high 90s on 4 L O2 via nasal cannula. Follow-up chest x-ray on 11/24/2017 showed cardiomegaly with mild positive fluid balance. Urine culture from 11/25/2017 growing Staphylococcus species; patient started on Zosyn q6 hours IV. Recent lab work from 11/26/2017 reviewed: Sodium: 146, potassium 4.1, chloride 115, carbon dioxide 22.5, glucose 95, calcium 8.7 BUN: 31, creatinine 2.85, GFR 22 Spoke to patient's friend (Sarah Pratt) who was previously designated as the HCS decision maker. Ms. Pratt again states she does not wish to act in the role of healthcare surrogate decision making stating her worship would make it difficult for her to honor the patient's wishes. Yesterday 11/25/2017 the patient was able to recall his two friends, Sarah and Eran, who were is neighbors before he was placed in the [facility]. Patient indicated that he would like his friend (Eran Guerrier) to act as his healthcare surrogate decision maker. Attempted to reach Mr. Guerrier via telephone. Message left on his voicemail with Palliative care contact information. A second attempt to reach Mr. Guerrier today was unsuccessful. Case management consult was placed for accurints and an email request for the accurints was sent to Alicja Walker. . Family/friend interactions See interval history . Advance Directives Health Care Surrogate: Copy in medical record Advance Directive Specifics Date completed: Patient designated his friend, Sarah Pratt, as his healthcare surrogate on 11/12. . Health Care Surrogate(s): Patient designated his friend, Sarah Pratt, as his healthcare surrogate on 11/12. Of note, Sarah would prefer not to act as HCS because she is Gnosticism and cannot support some of the patient's medical treatment goals. She states the patient has another friend (Eran) who as participated in health care decision-making conversations with the patient and Sarah, and he would be willing to act in this role. Patient indicates he is comfortable either with Sarah or Eran acting in the role of healthcare surrogate decision maker. Sarah stated she would remain HCS until further conversations can be had with the patient and new HCS form completed. Message left for patient's friend, Eran , during his last admission in 11/2016 and again today 11/25/17 with palliative care contact information. . Documented care wishes: No documented care wishes have been completed other than the above mentioned HCS designation form. . Objective Vital Signs Date Time Temp Pulse Resp B/P (MAP) Pulse Ox O2 Delivery O2 Flow Rate FiO2 11/26/17 12:00 78 11/26/17 12:00 97.8 78 161/70 (100) 47 11/26/17 10:00 83 11/26/17 08:02 100 Nasal Cannula 4.00 11/26/17 08:00 86 11/26/17 08:00 97.5 86 149/63 (91) 99 11/26/17 06:00 88 11/26/17 04:00 89 11/26/17 04:00 97.6 89 22 175/74 (107) 94 11/26/17 03:09 94 11/26/17 02:00 91 11/26/17 00:24 99 11/26/17 00:00 81 11/26/17 00:00 98.6 81 22 151/67 (95) 98 11/25/17 22:00 83 11/25/17 20:00 82 11/25/17 20:00 98.7 82 22 192/82 (118) 99 11/25/17 18:00 90 11/25/17 16:00 97.5 84 170/80 (110) 99 11/25/17 16:00 84 11/25/17 14:00 91 Intake & Output 11/26/17 11/26/17 07:00 19:00 Intake Total 200 ml Output Total 551 ml Balance -351 ml Intake Oral 200 ml Output Urine Total 550 ml Stool Total 1 ml # Bowel Movements 1 . Physical Exam CONSTITUTIONAL/GENERAL: This is an adequately nourished patient, in no apparent distress. TUBES/LINES/DRAINS: urinary cath, PIV x 2, nasal cannula SKIN: No jaundice, rashes, or lesions. Ecchymoses on upper extremities. No wounds seen anteriorly. Skin temperature appropriate. Not diaphoretic. HEAD: Atraumatic. Normocephalic. EYES: Pupils equal and round and reactive. Extraocular motions intact. No scleral icterus. No injection or drainage. Fundi not examined. ENT: Hearing grossly normal. Nose without bleeding or purulent drainage. Throat without visible erythema, exudates, masses, or lesions. NECK: Trachea midline. Supple, nontender. No palpable thyroid enlargement or nodularity. CARDIOVASCULAR: Regular rate and rhythm without murmurs, gallops, or rubs. No JVD. Peripheral pulses symmetric. RESPIRATORY/CHEST: Symmetric, unlabored respirations. Clear to auscultation. Breath sounds equal bilaterally. No wheezes, rales, or rhonchi. GASTROINTESTINAL: Abdomen soft, non-tender, nondistended. No guarding. Bowel sounds present. GENITOURINARY: Without palpable bladder distension. Yang catheter in place. MUSCULOSKELETAL: Extremities without clubbing, cyanosis, or edema. No mottling or clubbing. LYMPHATICS: No palpable cervical or supraclavicular adenopathy. NEUROLOGICAL: Lethargic; confused. Able to respond to simple questions with breif answers. Follows 1 step simple commands intermittently PSYCHIATRIC: No obvious anxiety/depression. no apparent hallucinations or other psychotic thought process. . Diagnostic Tests Laboratory Laboratory Tests Test 11/23/17 15:54 11/24/17 03:30 11/24/17 16:53 11/25/17 00:00 Potassium Level 5.9 MEQ/L (3.5-5.1) 5.0 MEQ/L (3.5-5.1) White Blood Count 7.8 TH/MM3 (4.0-11.0) Red Blood Count 2.75 MIL/MM3 (4.50-5.90) Hemoglobin 7.9 GM/DL (13.0-17.0) Hematocrit 24.3 % (39.0-51.0) Mean Corpuscular Volume 88.7 FL (80.0-100.0) Mean Corpuscular Hemoglobin 28.8 PG (27.0-34.0) Mean Corpuscular Hemoglobin Concent 32.5 % (32.0-36.0) Red Cell Distribution Width 15.9 % (11.6-17.2) Platelet Count 321 TH/MM3 (150-450) Mean Platelet Volume 5.7 FL (7.0-11.0) Neutrophils (%) (Auto) 84.5 % (16.0-70.0) Lymphocytes (%) (Auto) 6.0 % (9.0-44.0) Monocytes (%) (Auto) 4.8 % (0.0-8.0) Eosinophils (%) (Auto) 3.8 % (0.0-4.0) Basophils (%) (Auto) 0.9 % (0.0-2.0) Neutrophils # (Auto) 6.6 TH/MM3 (1.8-7.7) Lymphocytes # (Auto) 0.5 TH/MM3 (1.0-4.8) Monocytes # (Auto) 0.4 TH/MM3 (0-0.9) Eosinophils # (Auto) 0.3 TH/MM3 (0-0.4) Basophils # (Auto) 0.1 TH/MM3 (0-0.2) CBC Comment DIFF FINAL Differential Comment Blood Urea Nitrogen 38 MG/DL (7-18) Creatinine 2.86 MG/DL (0.60-1.30) Random Glucose 120 MG/DL (74-106) Calcium Level 8.6 MG/DL (8.5-10.1) Phosphorus Level 4.2 MG/DL (2.5-4.9) Magnesium Level 2.1 MG/DL (1.5-2.5) Sodium Level 146 MEQ/L (136-145) Chloride Level 115 MEQ/L (98-107) Carbon Dioxide Level 22.7 MEQ/L (21.0-32.0) Anion Gap 8 MEQ/L (5-15) Estimat Glomerular Filtration Rate 22 ML/MIN (>89) Blood Gas Puncture Site LT RADIAL Blood Gas Patient Temperature 98.6 Blood Gas HCO3 21 mmol/L (22-26) Blood Gas Base Excess -3.7 mmol/L (-2-2) Blood Gas Oxygen Saturation 92 % (90-100) Arterial Blood pH 7.34 (7.380-7.420) Arterial Blood Partial Pressure CO2 41 mmHg (38-42) Arterial Blood Partial Pressure O2 74 mmHg (61-120) Arterial Blood Oxygen Content 10.1 Vol % (12.0-20.0) Arterial Blood Carboxyhemoglobin 1.1 % (0-4) Arterial Blood Methemoglobin 1.5 % (0-2) Blood Gas Hemoglobin 7.7 G/DL (12.0-16.0) Blood Gas Inspired Oxygen 21 % Urine Color LIGHT-YELLOW (YELLW/STRAW) Urine Turbidity CLEAR (CLEAR) Urine pH 7.5 (5.0-8.5) Urine Specific Oneco 1.012 (1.002-1.035) Urine Protein 300 mg/dL (NEG-TRACE) Urine Glucose (UA) TRACE mg/dL (NEG) Urine Ketones NEG mg/dL (NEG) Urine Occult Blood MOD (NEG) Urine Nitrite NEG (NEG) Urine Bilirubin NEG (NEG) Urine Urobilinogen LESS THAN 2.0 MG/DL (LESS Urine Leukocyte Esterase NEG (NEG) Urine RBC /hpf (0-3) Urine WBC 14 /hpf (0-5) Microscopic Urinalysis Comment CATH-CULTURE IND Urine Random Creatinine 30.0 MG/DL Urine Random Sodium 123 MEQ/L Test 11/25/17 07:43 11/26/17 03:27 White Blood Count 9.3 TH/MM3 (4.0-11.0) Red Blood Count 2.62 MIL/MM3 (4.50-5.90) Hemoglobin 7.5 GM/DL (13.0-17.0) Hematocrit 23.2 % (39.0-51.0) Mean Corpuscular Volume 88.4 FL (80.0-100.0) Mean Corpuscular Hemoglobin 28.7 PG (27.0-34.0) Mean Corpuscular Hemoglobin Concent 32.4 % (32.0-36.0) Red Cell Distribution Width 15.2 % (11.6-17.2) Platelet Count 312 TH/MM3 (150-450) Mean Platelet Volume 5.4 FL (7.0-11.0) Neutrophils (%) (Auto) 86.5 % (16.0-70.0) Lymphocytes (%) (Auto) 5.2 % (9.0-44.0) Monocytes (%) (Auto) 4.6 % (0.0-8.0) Eosinophils (%) (Auto) 2.9 % (0.0-4.0) Basophils (%) (Auto) 0.8 % (0.0-2.0) Neutrophils # (Auto) 8.1 TH/MM3 (1.8-7.7) Lymphocytes # (Auto) 0.5 TH/MM3 (1.0-4.8) Monocytes # (Auto) 0.4 TH/MM3 (0-0.9) Eosinophils # (Auto) 0.3 TH/MM3 (0-0.4) Basophils # (Auto) 0.1 TH/MM3 (0-0.2) CBC Comment DIFF FINAL Differential Comment Blood Urea Nitrogen 32 MG/DL (7-18) 31 MG/DL (7-18) Creatinine 2.86 MG/DL (0.60-1.30) 2.85 MG/DL (0.60-1.30) Random Glucose 105 MG/DL (74-106) 95 MG/DL (74-106) Total Protein 7.2 GM/DL (6.4-8.2) Albumin 2.1 GM/DL (3.4-5.0) Calcium Level 8.8 MG/DL (8.5-10.1) 8.7 MG/DL (8.5-10.1) Phosphorus Level 4.1 MG/DL (2.5-4.9) Magnesium Level 2.0 MG/DL (1.5-2.5) Alkaline Phosphatase 78 U/L (45-117) Aspartate Amino Transf (AST/SGOT) 16 U/L (15-37) Alanine Aminotransferase (ALT/SGPT) 16 U/L (12-78) Total Bilirubin 0.3 MG/DL (0.2-1.0) Sodium Level 146 MEQ/L (136-145) 146 MEQ/L (136-145) Potassium Level 4.4 MEQ/L (3.5-5.1) 4.1 MEQ/L (3.5-5.1) Chloride Level 114 MEQ/L (98-107) 115 MEQ/L (98-107) Carbon Dioxide Level 23.3 MEQ/L (21.0-32.0) 22.5 MEQ/L (21.0-32.0) Anion Gap 9 MEQ/L (5-15) 9 MEQ/L (5-15) Estimat Glomerular Filtration Rate 22 ML/MIN (>89) 22 ML/MIN (>89) Ammonia 21 MCMOL/L (11-32) B-Type Natriuretic Peptide 1485 PG/ML (0-100) . Result Diagram: 11/25/17 0743 11/26/17 0327 Microbiology Microbiology Date/Time Source Procedure Growth Status 11/23/17 19:55 Blood Peripheral Aerobic Blood Culture - Preliminary NO GROWTH IN 3 DAYS Resulted 11/23/17 19:55 Blood Peripheral Anaerobic Blood Culture - Preliminary NO GROWTH IN 3 DAYS Resulted 11/23/17 19:50 Blood Peripheral Aerobic Blood Culture - Preliminary NO GROWTH IN 3 DAYS Resulted 11/23/17 19:50 Blood Peripheral Anaerobic Blood Culture - Preliminary NO GROWTH IN 3 DAYS Resulted 11/24/17 09:28 Stool Stool Stool Occult Blood (CARLOS) - Final HEMOCCULT NEGATIVE Complete 11/25/17 00:00 Urine Catheterized Urine Urine Culture - Preliminary Staphylococcus Species Resulted . Imaging Last 72 hours Impressions Chest X-Ray 11/24/17 0000 Signed Impressions: Service Date/Time: Friday, November 24, 2017 17:55 - CONCLUSION: 1. Cardiomegaly with mild positive fluid balance. Michoacano Dean MD . Assessment and Plan Disease Oriented Problem List: (1) UTI (urinary tract infection) (2) Acute on chronic renal failure (3) Hyperkalemia (4) Acute metabolic encephalopathy (5) HTN (hypertension) (6) CHF (congestive heart failure) (7) CAD (coronary artery disease) (8) Obesity Symptom Scale: Pertinent Non-Medical Issues Psychosocial: Patient was in [place], [place]. He states he had no siblings. He moved to [place] while working with the [employer]. 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 He was 3 times (Blanka, Dayanara and Brisa aka Santosh). He states he had 4 children (Kinjal, Pedro Luis, Russel and Lee ) who were born in [place], [place]. The patient states his children were taken away from there mother by the state, and he does not know where they ended up. Spiritual: Caodaism fabien Legal: Patient's friend (Eran Guerrier) has been designated as the primary healthcare surrogate decision maker; Macy Elliott is designated as the alternate healthcare surrogate decision maker. Ethical issues impacting care: None known . Important Contacts Sarah Black, friend: [phone] Eran Guerrier,friend: [phone] . Prognosis Patient is a 77 year old male with a complex medical history that includes CAD, previous cardiac arrest, previous urosepsis/recurrent UTI, GI bleed, CKD, COPD, CHF, hypertension and altered mental status. H has been fci resident since an acute decline that began in March,. Given the patient's advanced age, recent acute decline and complex medical history, it is likely he will continue to experience setbacks and complications with associated rehospitalization. His overall prognosis is poor. . Code Status: Full Code Plan * FULL CODE * Decision-making: Patient showing insight and judgement r/t his medical condition. Healthcare surrogate * Aggressive goals pending identification of healthcare decision maker and further conversations * Symptom managementdebility: Per EMR, patient previously stated he was living in dependently and fully functioning prior to his initial hospitalization at [facility] in March,. The patient now lives at [facility]. He states he will likely be unable to return to his home secondary to his continued decline. Patient previously reported progressively worsening fatigue and weight loss. He states he has become more weak and has had worsening shortness of breath. * Symptom managementencephalopathy: Presented to [facility] on 11/22/17 via EMS for evaluation of altered mental status. Per report, patient had become increasingly confused and somnolent over the previous 24-48 hours. He is communicative at baseline but would not answer questions or follow commands on exam. CT brain showed mild atrophy; no acute abnormalities were seen. * Spoke to patient's friend (Sarah Pratt) who was previously designated as the HCS decision maker. Ms. Pratt again states she does not wish to act in the role of healthcare surrogate decision making stating her worship would make it difficult for her to honor the patient's wishes. Yesterday 11/25/2017 the patient was able to recall his two friends, Sarah and Eran, who were is neighbors before he was placed in the [facility]. Patient indicated that he would like his friend (Eran Guerrier) to act as his healthcare surrogate decision maker. Attempted to reach Mr. Guerrier via telephone. Message left on his voicemail with Palliative care contact information. A second attempt to reach Mr. Guerrier today was unsuccessful. Case management consult was placed for accurints and an e-mail request for the accurints was sent to Alicja Walker. * Palliative care will continue to follow patient throughout his hospitalization to establish trust, assist with symptom management and clarification of medical treatment goals. . Attestation To help prompt me to consider important information that might be impacting today's encounter and assessment, information from prior notes written by myself or my colleagues may have been "brought forward" into today's note. My signature on this note, however, is an attestation that I personally performed the exam, history, and/or decision-making noted today, and, unless otherwise indicated, the interactions with patient, family, and staff as well as the review of records all occurred today. I also attest that the listed assessment and stated plan reflect my best clinical judgment today based on the combination of historical information, prior notes, and today's exam/ interactions. When time spent is documented, it refers only to time spent today by the signer, or if indicated, combined time spent today by collaborating physician/nurse practitioner. . Margarita Frank November 26, 2017 14:16
--- NOTE | 2017-11-26 18:41 | HHI.CCPN ---
Subjective Remarks/Hospital Course 77-year-old male with past medical history of CAD, CHF, COPD, chronic kidney disease stage III, GI bleed, cardiac arrest in 2017, diabetes, pacemaker placement who was brought to the emergency department from [facility] for altered mentation. Patient usually is communicative but last 24-48 hours had been confused and more lethargic somnolent. A CT of the head in the ER was negative for any acute findings as well as chest x-ray was also negative. CBC shows leukocytosis 12.3. CMP showed K 7.2, BUN 49, creatinine 3.39. Patient has a chronic Roman and history of recurrent UTI. UA shows moderate occult blood, large leukocyte esterase, innumerable WBC, indicating severe UTI and urosepsis. In the ED patient received 2 L normal saline bolus, and for hyperkalemia treatment received sodium bicarb 1 amp IV, 1 amp of dextrose, 10 units IV regular insulin, 1 g calcium gluconate after IV fluids. Patient started on Zosyn 2.25 g for UTI. I evaluated the patient in the ED. He is lethargic but wakes up to sternal rub. States his name follows commands but falls right back to sleep. His metabolic encephalopathy secondary to his sepsis. Cultures have been drawn I will continue Zosyn, give 1 dose of vancomycin. He is protecting airway and does not need the patient at this time. Stat repeat CMP ordered 11/23 Oriented to self but remains confused. Potassium 6.3 this morning. Creatinine slight downtrend to 3.16. Making urine. Medically treating hyperkalemia again now with kayexalate/insulin/glucose. Records from senior care state creatinine was 3.9 on 10/18/16. Renal u/s with bilateral hydronephrosis, now Roman in place. Called and discussed with [facility]. He had roman in Aug and again in early october 2017, not a chronic roman, has appt in January for Dr. Duff but reportedly had never seen before. He is full code and per senior care does not have advance directives on file. No family contact information. There is contact information for friend. 11/24 Potassium down to 5 this morning. Creatinine downtrending. Urine culture felt to be contaminant. He remains confused and reportedly he is conversant at baseline per senior care. Weaned off NC and now on RA. Coughing. 11/25: Remains disoriented currently. On nasal cannula. Subjective: 11/26 Mental status much improved, now answering all questions of orientation correctly. Is alert and able to eat a diet; NGT removed. Creatinine is at a plateau and Iikely at his baseline. He is now requesting meds for chronic pain. Objective Vital Signs Date Time Temp Pulse Resp B/P (MAP) Pulse Ox O2 Delivery O2 Flow Rate FiO2 11/26/17 18:00 74 11/26/17 16:00 97.5 167/70 (102) 100 11/26/17 08:02 Nasal Cannula 4.00 11/26/17 04:00 22 11/25/17 08:12 21 Intake and Output 11/26/17 11/26/17 11/27/17 08:00 16:00 00:00 Intake Total 200 ml 720 ml Output Total 551 ml 625 ml Balance -351 ml 95 ml Result Diagram: 11/25/17 0743 11/26/17 0327 Other Results Microbiology Date/Time Source Procedure Growth Status 11/24/17 09:28 Stool Stool Stool Occult Blood (CARLOS) - Final HEMOCCULT NEGATIVE Complete Imaging CT of the head and chest x-ray shows no acute disease Objective Remarks GENERAL: Well-nourished, well-developed, obese elderly male patient who is sitting up, alert and interactive. Eating. SKIN: Skin warm/dry. HEAD: Normocephalic. Atraumatic. ENT: Oral mucosa moist. EYES: No scleral icterus. No injection or drainage. NECK: Supple, trachea midline. No JVD or lymphadenopathy. CARDIOVASCULAR: Regular rate and rhythm, 3 out of 6 systolic murmur left sternal border. RESPIRATORY: Clear to auscultation bilaterally without wheezes rales or rhonchi. Diminished bibasilar. GASTROINTESTINAL: Abdomen soft, non-tender, nondistended. Obese with multiple well healed scars. : Roman in place, light yellow urine in bag. MUSCULOSKELETAL: No cyanosis, or edema. s/p right big toe amputation NEURO: Alert, oriented to year, self, Located within [facility]. Strength 5/5 in all extremities. A/P Problem List: (1) Acute metabolic encephalopathy ICD Code: G93.41 - Metabolic encephalopathy Status: Resolved (2) Hyperkalemia ICD Code: E87.5 - Hyperkalemia Status: Resolved (3) UTI (urinary tract infection) ICD Code: N39.0 - Urinary tract infection, site not specified Status: Acute (4) Acute renal failure ICD Code: N17.9 - Acute kidney failure, unspecified Status: Acute (5) DM (diabetes mellitus) ICD Code: E11.9 - Type 2 diabetes mellitus without complications Status: Chronic (6) Acute on chronic renal failure ICD Code: N17.9 - Acute kidney failure, unspecified; N18.9 - Chronic kidney disease, unspecified Status: Acute (7) CAD (coronary artery disease) ICD Code: I25.10 - Atherosclerotic heart disease of chilkoot coronary artery without angina pectoris Status: Acute (8) Obesity ICD Code: E66.9 - Obesity, unspecified Status: Acute (9) HTN (hypertension) ICD Code: I10 - Essential (primary) hypertension Status: Acute Assessment and Plan NEURO: Acute metabolic encephalopathy, resolved -Altered mentation was felt to be secondary to sepsis, now back to baseline. - CT brain 11/22 - negative -ABG did not reveal elevated PCO2, ammonia level normal. -EEG triphasic waves c/w severe diffuse encephalopathy. Could increase risk for seizure. No clinical seizure activity and mental status now at baseline. Consider neurology consult for anticonvulsant if there is clinical seizure or if mental status worsens. - Resume gabapentin 100 mg but changed to once daily in view of renal function and recent mental status issues. -Resume baclofen but dose adjust to 5 mg q12 based on renal function. -Resume cymbalta -[place] prn. RESP: History of COPD -Nasal cannula oxygen to keep SaO2 >90% -DuoNeb every 4 hours scheduled and as needed. Albuterol q2. -Continue Breo Ellipta CV: History of coronary artery disease History of cardiac arrest -2d echo last year showed EF 60% Continue Plavix HTN Norvasc 5 mg po daily. Labetalol prn . -Hold lisinopril due to worsening renal failure, GI: h/o Dysphagia - Now able to swallow and diet advanced. - famotidine /ENDO: Acute on chronic kidney disease Acute obstructive uropathy. Hyperkalemia Type 2 diabetes -Monitor BMP, Roman in place. - Continuing flomax 0.4 mg po qhs that he is on chronically. Will need urology followup as outpatient, seen as inpatient but no additional therapy recommended. Roman to remain in place until f/u. -Potassium now normalized following medical management. -Nephrology Dr. Lima following. -Renal ultrasound shows bilateral hydronephrosis. ID: UTI Severe sepsis -Follow-up on blood and urine culture -IV vancomycin 1 GM x1 11/22 blood cultures drawn 11/22 are negative. urine culture -no dominant organism on inital culture but had purulence at meatus, cloudy urine and urinary obstruction that was highly suspicious so repeated U/a and culture with new catheter. Repeat urine cx 11/25 with >10^5 staph but species and sensitivity still pending. He has clinically responded to zosyn, so will continue for now and adjust when final culture data available, should be tomorrow. HEME: -Monitor CBC PROPH: -Bilateral lower extremity SCDs. Sq Heparin/ IV Famotidine LINES: -Utilize peripheral IVs, Patient is reportedly designated full code at senior care. He does not have an advanced directive on file at the senior care. There is no family contact. There is contact information for a friend named Sarah Pratt who was a neighbor but she states she was never formally designated his healthcare surrogate. She was helping him with grocery shopping and finances when he was living at home. She states he has no family. She states his closest friend who used to take him to doctor appointments was Eran Pinky (spelling unknown) , . Patient is currently not capacitated for medical decision making and it is unclear who would make medical decisions on his behalf. Palliative care following. Transfer to floor. Hospitalist to assume care 11/27 FULL CODE Level 2 F/u. Problem Qualifiers (1) UTI (urinary tract infection): Qualified Codes: N39.0 - Urinary tract infection, site not specified; R31.9 - Hematuria, unspecified (2) Acute renal failure: Qualified Codes: N17.9 - Acute kidney failure, unspecified (3) DM (diabetes mellitus): Mary Carmen Ballesteros MD November 26, 2017 18:41
[2017-11-26] MEDS ORDERED: FUROSEMIDE 20 MG/2 ML VIAL IV PUSH ONE (19:30)
[2017-11-26] MEDS ORDERED: PILL SPLITTER OTHER PRN (20:00)
[2017-11-26] MEDS: GABAPENTIN 100 MG CAP PO SCH (20:26)
[2017-11-26] MEDS: BACLOFEN 10 MG TAB PO SCH (20:26)
[2017-11-26] MEDS: ACETAMINOPHEN/HYDROcodone 325 MG/5 MG TAB PO PRN (20:26)
[2017-11-26] MEDS: TAMSULOSIN HCL 0.4 MG CAP PO SCH (20:26)
[2017-11-27] VITALS (10 sets, daily range): BP systolic 139–177; BP diastolic 63–76; PULSE 77–90; RESP 16–20; TEMP 97.9–98.6; O2SAT 94–100
[2017-11-27] MEDS: RESP: ALBUTEROL 2.5 MG/IPRATROPIUM 0.5 MG NEB (SCH) INH ×7 (00:03→22:41)
[2017-11-27] MEDS: INSULIN ASPART SUPPLEMENTAL SCALE SQ SCH ×6 (03:00→22:52)
[2017-11-27] MEDS: CHLORHEXIDINE GLUCONATE 2 % 1 PACK (2 CLOTHS) TOP SCH (04:00)
[2017-11-27] MEDS: PIPERACIL-TAZO 2.25 GM PREMIX 50 ML IV SCH ×2 (04:09→11:57)
[2017-11-27] MEDS: ACETAMINOPHEN/HYDROcodone 325 MG/5 MG TAB PO PRN ×2 (06:12→17:01)
[2017-11-27 07:48] LABS: AUTOMATED NEUTROPHIL # 5.1 TH/MM3 (1.8-7.7); BASOPHIL # 0.1 TH/MM3 (0-0.2); BASOPHIL % 0.8 % (0.0-2.0); EOSINOPHIL # 0.7 TH/MM3 (0-0.4); EOSINOPHIL % 9.9 % (0.0-4.0); HEMATOCRIT 23.9 % (39.0-51.0); HEMOGLOBIN 7.8 GM/DL (13.0-17.0); LYMPH % 9.4 % (9.0-44.0); LYMPHOCYTE # 0.6 TH/MM3 (1.0-4.8); MEAN CELL VOLUME 88.7 FL (80.0-100.0); MEAN CORPUSCULAR HEMOGLOBIN 28.8 PG (27.0-34.0); MEAN CORPUSCULAR HGB CONC 32.4 % (32.0-36.0); MEAN PLATELET VOLUME 5.3 FL (7.0-11.0); MONO % 5.4 % (0.0-8.0); MONOCYTE # 0.4 TH/MM3 (0-0.9); NEUT % 74.5 % (16.0-70.0); PLATELET COUNT 252 TH/MM3 (150-450); RED BLOOD COUNT 2.69 MIL/MM3 (4.50-5.90); RED CELL DISTRIBUTION WIDTH 15.5 % (11.6-17.2); WHITE BLOOD COUNT 6.9 TH/MM3 (4.0-11.0)
[2017-11-27 08:17] LABS: CALCIUM 8.5 MG/DL (8.5-10.1); CREATININE 2.81 MG/DL (0.60-1.30)
--- NOTE | 2017-11-27 08:57 | HHI.PR ---
Subjective Remarks in no acute distress. denies pain. denies fever. no new complaints. Objective Vitals Vital Signs Date Time Temp Pulse Resp B/P (MAP) Pulse Ox O2 Delivery O2 Flow Rate FiO2 11/27/17 04:35 99 Nasal Cannula 2.00 11/27/17 04:00 Nasal Cannula 2.00 11/27/17 04:00 98.5 79 16 140/69 (92) 94 11/27/17 00:06 94 Nasal Cannula 2.00 11/27/17 00:00 Nasal Cannula 2.00 11/27/17 00:00 98.6 78 16 139/76 (97) 94 11/26/17 22:30 99 Nasal Cannula 2.00 11/26/17 22:00 97.3 80 20 162/71 (101) 99 11/26/17 20:35 100 Nasal Cannula 2.00 11/26/17 20:00 97.5 74 152/66 (94) 100 11/26/17 20:00 74 11/26/17 18:00 74 11/26/17 16:00 74 11/26/17 16:00 97.5 77 167/70 (102) 100 11/26/17 14:00 73 11/26/17 12:00 78 11/26/17 12:00 97.8 78 161/70 (100) 47 11/26/17 10:00 83 I/O 11/26/17 11/26/17 11/26/17 11/27/17 11/27/17 11/27/17 06:59 14:59 22:59 06:59 14:59 22:59 Intake Total 200 ml 1000 ml 1270 ml 450 ml Output Total 551 ml 625 ml 1300 ml Balance -351 ml 1000 ml 645 ml -850 ml Intake Oral 200 ml 720 ml 350 ml IV Total 1000 ml 550 ml 100 ml Output Urine Total 550 ml 625 ml 1300 ml Stool Total 1 ml # Bowel Movements 1 1 Result Diagram: 11/27/17 0630 11/27/17 0630 Imaging Last Impressions Chest X-Ray 11/24/17 0000 Signed Impressions: Service Date/Time: Friday, November 24, 2017 17:55 - CONCLUSION: 1. Cardiomegaly with mild positive fluid balance. Michoacano Dean MD Head CT 11/22/17 1907 Signed Impressions: Service Date/Time: Wednesday, November 22, 2017 19:57 - CONCLUSION: 1. No acute abnormality seen. 2. Mild atrophy. Walter White MD Renal Ultrasound 11/22/17 0000 Signed Impressions: Service Date/Time: Wednesday, November 22, 2017 21:58 - CONCLUSION: 1. Moderate bilateral hydronephrosis with left ureter dilated throughout its course. 2. Small amount of bladder debris. 3. Increased renal echogenicity characteristic of medical renal disease. Isidro Landeros MD Objective Remarks GENERAL: This is a well-nourished, well-developed patient, in no apparent distress. CARDIOVASCULAR: Regular rate and regular rhythm without murmurs, gallops, or rubs. RESPIRATORY: Clear to auscultation. Breath sounds equal bilaterally. No wheezes , rales, or rhonchi. GASTROINTESTINAL: Abdomen soft, non-tender, nondistended. Normal, active bowel sounds MUSCULOSKELETAL: Extremities without clubbing, cyanosis, or edema. NEURO: Alert & Oriented x4 to person, place, time, situation. Moves all ext x4 Medications and IVs Inpatient Medications Acetaminophen/ Hydrocodone Bitart ([place] 5-325 Mg) 1 tab Q4H PRN PO PAIN SCALE 1 TO 10 Last administered on 11/27/17at 06:12; Start 11/26/17 at 19:45 Albuterol Sulfate (Albuterol Neb) 2.5 mg Q2HR NEB PRN NEB WHEEZING; Start 11/24 at 16:45 Albuterol/ Ipratropium (Duoneb Neb) 1 ampule Q4HR NEB INH Last administered on 11/27/17at 04:32; Start 11/26/17 at 20:00 Amlodipine Besylate (Norvasc) 5 mg DAILY OG-TUBE Last administered on at 08:24; Start 11/24/17 at 20:15 Baclofen (Lioresal) 5 mg Q12H PO Last administered on 11/26/17at 20:26; Start at 20:00 Calcium Gluconate (Calcium Gluconate Inj) 1 gm ONCE ONCE SLOW IVP Last administered on 11/22/17at 21:41; Start 11/22/17 at 20:30; Stop 11/22/17 at 20:31 ; Status DC Calcium Gluconate 2 gm/Sodium Chloride 120 ml @ 120 mls/hr ONCE ONCE IV Last administered on 11/23/17at 21:59; Start 11/23/17 at 21:30; Stop 11/23/17 at 22:29 ; Status DC Chlorhexidine Gluconate (Chlorhexidine 2% Cloth) 3 pack UNSCH PRN TOP HYGIENIC CARE; Start 11/22/17 at 21:45 Clopidogrel Bisulfate (Plavix) 75 mg DAILY PO Last administered on 11/26/17at 08 :24; Start 11/23/17 at 09:00 Dextrose (D50w (Syr) Inj) 25 ml ONCE ONCE IV PUSH Last administered on at 22:04; Start 11/23/17 at 21:30; Stop 11/23/17 at 21:31; Status DC Dextrose (D50w (Vial) Inj) 50 ml ONCE ONCE IV PUSH Last administered on at 10:26; Start 11/23/17 at 09:30; Stop 11/23/17 at 09:31; Status DC Duloxetine HCl (Cymbalta Dr) 40 mg DAILY PO ; Start 11/27/17 at 09:00 Famotidine (Pepcid Inj) 10 mg Q12H IV PUSH Last administered on 11/26/17at 23:28 ; Start 11/23/17 at 11:00 Famotidine (Pepcid) 20 mg Q12HR PO ; Start 11/23/17 at 09:00; Stop 11/23/17 at 10:40; Status DC Fluticasone/ Vilanterol (Breo Ellipta 100-25 Inh) 1 puff DAILY INH ; Start 11/23 at 09:00 Furosemide (Lasix Inj) 20 mg ONCE ONCE IV PUSH Last administered on 11/26/17at 20:26; Start 11/26/17 at 19:30; Stop 11/26/17 at 19:31; Status DC Gabapentin (Neurontin) 100 mg DAILY PO Last administered on 11/26/17at 20:26; Start 11/26/17 at 19:45 Heparin Sodium (Porcine) (Heparin Inj) 5,000 units Q12H SQ Last administered on 11/26/17at 20:26; Start 11/22/17 at 22:00 Insulin Aspart (NovoLOG SUPPLEMENTAL SCALE) 1 Q4H SQ ; Start 11/22/17 at 23:00 Insulin Human Regular (NovoLIN R INJ) 10 units ONCE ONCE IV PUSH Last administered on 11/23/17at 22:10; Start 11/23/17 at 21:30; Stop 11/23/17 at 21:38 ; Status DC Labetalol HCl (Trandate Inj) 10 mg Q4H PRN IV PUSH SBP >165 Last administered on 11/25/17at 21:29; Start 11/24/17 at 12:15 Miscellaneous (Pill Splitter) 1 ea UNSCH PRN OTHER SEE LABEL COMMENTS; Start at 20:00 Miscellaneous Information ([facility] [place] 1 Q361D XX Last administered on 11/22/17at 21:45; Start 11/22/17 at 21:45 Piperacillin Sod/ Tazobactam Sod 50 ml @ 100 mls/hr Q6H IV Last administered on 11/27/17at 04:09; Start 11/26/17 at 11:00 Sodium Polystyrene Sulfonate (Kayexalate Liq) 15 gm ONCE ONCE PO Last administered on 11/23/17at 22:03; Start 11/23/17 at 21:30; Stop 11/23/17 at 21:38 ; Status DC Sodium Bicarbonate (Sodium Bicarbonate 8.4% Inj) 50 meq ONCE ONCE IV PUSH Last administered on 11/23/17at 22:04; Start 11/23/17 at 21:30; Stop 11/23/17 at 21:38; Status DC Sodium Chloride 1,000 ml @ 100 mls/hr Q10H IV Last administered on 11/26/17at 14:43; Start 11/24/17 at 12:00; Stop 11/26/17 at 18:47; Status DC Sodium Chloride (NS Flush) 2 ml UNSCH PRN IV FLUSH FLUSH AFTER USING IV ACCESS ; Start 11/22/17 at 19:15 Tamsulosin HCl (Flomax) 0.4 mg HS PO Last administered on 11/26/17at 20:26; Start 11/23/17 at 21:00 Vancomycin HCl 1000 mg/Sodium Chloride 250 ml @ 250 mls/hr ONCE ONCE IV Last administered on 11/22/17at 22:37; Start 11/22/17 at 22:00; Stop 11/22/17 at 22:59 ; Status DC A/P Problem List: (1) Altered mental status ICD Code: R41.82 - Altered mental status, unspecified Status: Acute (2) UTI (urinary tract infection) ICD Code: N39.0 - Urinary tract infection, site not specified Status: Acute (3) Acute on chronic renal failure ICD Code: N17.9 - Acute kidney failure, unspecified; N18.9 - Chronic kidney disease, unspecified Status: Acute (4) Hyperkalemia ICD Code: E87.5 - Hyperkalemia Status: Resolved (5) Acute metabolic encephalopathy ICD Code: G93.41 - Metabolic encephalopathy Status: Resolved (6) HTN (hypertension) ICD Code: I10 - Essential (primary) hypertension Status: Acute (7) Obesity ICD Code: E66.9 - Obesity, unspecified Status: Acute (8) CHF (congestive heart failure) ICD Code: I50.9 - Heart failure, unspecified Status: Acute (9) CAD (coronary artery disease) ICD Code: I25.10 - Atherosclerotic heart disease of [place] coronary artery without angina pectoris Status: Acute Assessment and Plan Acute metabolic encephalopathy, resolved -Altered mentation was felt to be secondary to sepsis, now back to baseline. - CT brain 11/22 - negative -ABG did not reveal elevated PCO2, ammonia level normal. -EEG triphasic waves c/w severe diffuse encephalopathy. Could increase risk for seizure. No clinical seizure activity and mental status now at baseline. Consider neurology consult for anticonvulsant if there is clinical seizure or if mental status worsens. - Resumed gabapentin 100 mg but changed to once daily in view of renal function and recent mental status issues. -Resumed baclofen but dose adjust to 5 mg q12 based on renal function. -Resumed cymbalta -[place] prn. History of COPD -Nasal cannula oxygen to keep SaO2 >90% -DuoNeb every 4 hours scheduled and as needed. Albuterol q2. -Continue Breo Ellipta History of coronary artery disease History of cardiac arrest -2d echo last year showed EF 60% Continue Plavix HTN Norvasc 5 mg po daily. Labetalol prn . -Hold lisinopril due to worsening renal failure, h/o Dysphagia - Now able to swallow and diet advanced. - famotidine Acute on chronic kidney disease Acute obstructive uropathy. Hyperkalemia Type 2 diabetes -Monitor BMP, Yang in place. - Continuing flomax 0.4 mg po qhs that he is on chronically. Will need urology followup as outpatient, seen as inpatient but no additional therapy recommended. Yang to remain in place until f/u. -Potassium now normalized following medical management. -Nephrology Dr. Lima following. -Renal ultrasound shows bilateral hydronephrosis. UTI Severe sepsis MRSA bacteremia -Follow-up on blood and urine culture -IV vancomycin 1 GM x1 11/22 - pharmacy consulted for Vanco dosing. -will consult ID Patient is reportedly designated full code at intermediate. He does not have an advanced directive on file at the intermediate. There is no family contact. There is contact information for a friend named Sarah Pratt who was a neighbor but she states she was never formally designated his healthcare surrogate. She was helping him with grocery shopping and finances when he was living at home. She states he has no family. She states his closest friend who used to take him to doctor appointments was Eran Vance (spelling unknown) [phone], . Patient is currently not capacitated for medical decision making and it is unclear who would make medical decisions on his behalf. Palliative care following. Discharge Planning awaiting ID evaluation. Problem Qualifiers (1) Altered mental status: Qualified Codes: R41.82 - Altered mental status, unspecified (2) UTI (urinary tract infection): Qualified Codes: N39.0 - Urinary tract infection, site not specified; R31.9 - Hematuria, unspecified Felipe Gonzalez MD November 27, 2017 08:57
[2017-11-27] MEDS ORDERED: Vancomycin Consult Pharmacy 1 EA OTHER SCH (09:00)
[2017-11-27] MEDS: HEPARIN SODIUM - SQ 10,000 UNITS/ML VIAL SQ SCH ×2 (09:50→20:50)
[2017-11-27] MEDS: SODIUM CHLORIDE 0.9% FLUSH 10 ML FLUSH IV FLUSH PRN (09:51)
[2017-11-27] MEDS: amLODIPine BESYLATE 5 MG TAB OG-TUBE SCH (09:52)
[2017-11-27] MEDS: BACLOFEN 10 MG TAB PO SCH ×2 (09:52→20:49)
[2017-11-27] MEDS: CLOPIDOGREL 75 MG TAB PO SCH (09:52)
[2017-11-27] MEDS: GABAPENTIN 100 MG CAP PO SCH (09:52)
[2017-11-27] MEDS ORDERED: VANCOMYCIN INJ 2,000 MG in SODIUM CHLORID 0.9% 500 ML INJ 500 ML IV ONE (10:00)
[2017-11-27] MEDS: DULoxetine HCl DR 20 MG CAP PO SCH (11:57)
--- NOTE | 2017-11-27 12:34 | HHI.NPPN ---
Subjective Additional Remarks no apparent distress Objective Data Data Vital Signs Date Time Temp Pulse Resp B/P (MAP) Pulse Ox O2 Delivery O2 Flow Rate FiO2 11/27/17 08:56 99 Nasal Cannula 2.00 11/27/17 08:00 97.9 77 20 144/63 (90) 100 11/27/17 04:35 99 Nasal Cannula 2.00 11/27/17 04:00 Nasal Cannula 2.00 11/27/17 04:00 98.5 79 16 140/69 (92) 94 11/27/17 00:06 94 Nasal Cannula 2.00 11/27/17 00:00 Nasal Cannula 2.00 11/27/17 00:00 98.6 78 16 139/76 (97) 94 11/26/17 22:30 99 Nasal Cannula 2.00 11/26/17 22:00 97.3 80 20 162/71 (101) 99 11/26/17 20:35 100 Nasal Cannula 2.00 11/26/17 20:00 97.5 74 152/66 (94) 100 11/26/17 20:00 74 11/26/17 18:00 74 11/26/17 16:00 74 11/26/17 16:00 97.5 77 167/70 (102) 100 11/26/17 14:00 73 -: 11/27/17 0630 11/27/17 0630 Physical Exam General Appearance: Well Developed, Well Nourished, No Acute Distress Neck Neck Exam: Neck Supple Pulmonary Resp Exam: Decreased Bases Cardiology CV Exam: Regular, Normal Sinus Rhythm Gastrointestinal/Abdomen GI Exam: Soft, Non-Tender, Bowel Sounds Present Genitourinary Exam: Clear Urine Musculoskeletal MS Exam: Joints Intact Integumentary Skin Exam: Clear, Warm, Dry, Intact Extremeties Extremities Exam: No Edema Neurologic Neuro Exam: Awake Assessment/Plan Problem List: (1) Acute on chronic renal failure ICD Codes: N17.9 - Acute kidney failure, unspecified; N18.9 - Chronic kidney disease, unspecified Status: Acute Plan: Unclear baseline creatinine. Creatinine 3.9 in the [facility] 10/2017 One year ago, the patient had an episode of acute kidney injury where his creatinine ranged between 4.8 and 1.6. CKD likely due to DM/HTN. 100 protein in U/A SHAHLA secondary to obstructive uropathy, with hydronephrosis on ultrasound. Clinically volume depleted as well. Leave roman in place - apparently had planned for outpatient evaluation. 1.9 L UOP/ 24 hours. recommended to follow as out patient hematuria subsiding He may be near his baseline, continue to closely monitor renal function. Creatinine 3.1 -> 2.8 ->2.8->2.8 ->2.8 given Lasix UOP ok (2) UTI (urinary tract infection) ICD Codes: N39.0 - Urinary tract infection, site not specified Status: Acute Plan: Urinalysis suggestive of urinary tract infection. The patient HAS AN ALLERGY TO QUINOLONES. He is on antibiotics with Zosyn as well as was given at 1 dose of vancomycin. Closely monitor renal function and renal dose antibiotics as possible. (3) Hyperkalemia ICD Codes: E87.5 - Hyperkalemia Status: Resolved Plan: Initial hyperkalemia with K 7.2 - medically managed. Improving K+ at 5.0 now, continue to monitor. (4) Acute metabolic encephalopathy ICD Codes: G93.41 - Metabolic encephalopathy Status: Resolved Plan: apparently conversational in NH - possible AMS due to UTI. Continue to monitor. Problem Qualifiers (1) UTI (urinary tract infection): Qualified Codes: N39.0 - Urinary tract infection, site not specified; R31.9 - Hematuria, unspecified Taylor Gold MD November 27, 2017 12:34
[2017-11-27] MEDS: FLUTICASONE 100 MCG/VILANTEROL 25 MCG INHALER INH SCH (12:52)
[2017-11-27] MEDS: FAMOTIDINE 20 MG TAB PO SCH ×2 (12:52→20:49)
--- NOTE | 2017-11-27 15:15 | PD.ID.CON ---
History of Present Illness Service ID Consult Requested By Dr Sauer Reason for Consult MRSA bacteremia Primary Care Physician Unknown Diagnoses: History of Present Illness Pt is a very poor historian His friend was at b/s but she did not help much with the hx either 77 yo with h/ o DM resides in jail after his fall at home. He cant remember anything that happened, but apparently was brtought from his jail for altered mentation. AT baseline he is communicative and ambulates with a walker Pt has past medical history of CAD, CHF, COPD, chronic kidney disease stage III , GI bleed, cardiac arrest in 2017, diabetes, pacemaker placement . Patient has a chronic Roman and history of recurrent UTI. Pt was found to have ARF, hyperkalemia and UA cw infection He has b/l hydronephrosis on US His urine clx was cw contamination, repeat has MSSA, MRSA Blood clx with 1/4 bottles + for MRSA CXR not c/w PNA Repeat BC neg @ 4 days 2/2 Review of Systems ROS Limitations: Poor Historian Past Family Social History Allergies: Coded Allergies: Influenza Virus Vaccines (Unverified Allergy, Unknown, 02/19/17) cephalexin (Unverified Allergy, Unknown, 02/19/17) levofloxacin (Unverified Allergy, Unknown, 02/19/17) moxifloxacin (Unverified Allergy, Unknown, 02/19/17) Past Medical History Coronary artery disease, stent to RCA 90 03/27/16 Recurrent UTI Chronic Roman catheter GI bleed CKD stage III Gout Anemia COPD CHF Obesity Hypertension Hyperlipidemia Diabetes Past Surgical History Toe amputation Arthroscopy Feeding tube insertion Esophageal surgery Cardiac catheter with stent to RCA 90 03/27/16 Upper and lower endoscopy with findings of polyps and rectal ulcer Active Ordered Medications Medications where reviewed in EMR Antibiotics Include: PIp- petey vancomycin Family History non contributory to [place] Medical ID issue Social History quit tobacco 1 yr ago no ETOH resides in rehab Physical Exam Vital Signs Vital Signs Date Time Temp Pulse Resp B/P (MAP) Pulse Ox O2 Delivery O2 Flow Rate FiO2 11/27/17 12:00 98.0 81 20 157/67 (97) 99 11/27/17 08:56 99 Nasal Cannula 2.00 11/27/17 08:00 97.9 77 20 144/63 (90) 100 11/27/17 04:35 99 Nasal Cannula 2.00 11/27/17 04:00 Nasal Cannula 2.00 11/27/17 04:00 98.5 79 16 140/69 (92) 94 11/27/17 00:06 94 Nasal Cannula 2.00 11/27/17 00:00 Nasal Cannula 2.00 11/27/17 00:00 98.6 78 16 139/76 (97) 94 11/26/17 22:30 99 Nasal Cannula 2.00 11/26/17 22:00 97.3 80 20 162/71 (101) 99 11/26/17 20:35 100 Nasal Cannula 2.00 11/26/17 20:00 97.5 74 152/66 (94) 100 11/26/17 20:00 74 11/26/17 18:00 74 11/26/17 16:00 74 11/26/17 16:00 97.5 77 167/70 (102) 100 Physical Exam CONSTITUTIONAL/GENERAL: This is an adequately nourished patient, in no apparent distress. TUBES/LINES/DRAINS: SKIN: No jaundice, rashes, or lesions. Skin temperature appropriate. Not diaphoretic. HEAD: Atraumatic. Normocephalic. EYES: Pupils equal and round and reactive. Extraocular motions intact. No scleral icterus. No injection or drainage. Fundi not examined. ENT: Hearing grossly normal. Nose without bleeding or purulent drainage. Throat without visible erythema, exudates, masses, or lesions. edentulous NECK: Trachea midline. Supple, nontender. No palpable thyroid enlargement or nodularity. CARDIOVASCULAR: Regular rate and rhythm without murmurs, gallops, or rubs. No JVD. Peripheral pulses symmetric. Pacer in place R chest RESPIRATORY/CHEST: Symmetric, unlabored respirations. Clear to auscultation. Breath sounds equal bilaterally. No wheezes, rales, or rhonchi. GASTROINTESTINAL: Abdomen soft, non-tender, nondistended. No hepato-splenomegaly , or palpable masses. No guarding. Bowel sounds present. GENITOURINARY: Without palpable bladder distension. Roman catheter in place with clear yellow urine MUSCULOSKELETAL: Extremities without clubbing, cyanosis, or edema. No joint tenderness or effusion noted. No calf tenderness. No mottling or clubbing. Well healed R hallux amputation site LYMPHATICS: No palpable cervical or supraclavicular adenopathy. NEUROLOGICAL: Awake and alert. Motor and sensory grossly within normal limits. Follows commands. Clear speech, but obvoois memory lapses. Unable to provide history . Moves all extremities. PSYCHIATRIC: No obvious anxiety/depression. no apparent hallucinations or other psychotic thought process. Laboratory Laboratory Tests Test 11/27/17 06:30 White Blood Count 6.9 Red Blood Count 2.69 Hemoglobin 7.8 Hematocrit 23.9 Mean Corpuscular Volume 88.7 Mean Corpuscular Hemoglobin 28.8 Mean Corpuscular Hemoglobin Concent 32.4 Red Cell Distribution Width 15.5 Platelet Count 252 Mean Platelet Volume 5.3 Neutrophils (%) (Auto) 74.5 Lymphocytes (%) (Auto) 9.4 Monocytes (%) (Auto) 5.4 Eosinophils (%) (Auto) 9.9 Basophils (%) (Auto) 0.8 Neutrophils # (Auto) 5.1 Lymphocytes # (Auto) 0.6 Monocytes # (Auto) 0.4 Eosinophils # (Auto) 0.7 Basophils # (Auto) 0.1 CBC Comment DIFF FINAL Differential Comment Blood Urea Nitrogen 32 Creatinine 2.81 Random Glucose 97 Calcium Level 8.5 Sodium Level 143 Potassium Level 3.9 Chloride Level 112 Carbon Dioxide Level 21.0 Anion Gap 10 Estimat Glomerular Filtration Rate 22 B-Type Natriuretic Peptide 756 Date/Time Source Procedure Growth Status 11/23/17 19:55 Blood Peripheral Aerobic Blood Culture - Preliminary NO GROWTH IN 4 DAYS Resulted 11/23/17 19:55 Blood Peripheral Anaerobic Blood Culture - Preliminary NO GROWTH IN 4 DAYS Resulted 11/24/17 09:28 Stool Stool Stool Occult Blood (CARLOS) - Final HEMOCCULT NEGATIVE Complete 11/25/17 00:00 Urine Catheterized Urine Urine Culture - Preliminary S. Aureus Mrsa Staphylococcus Species Resulted Result Diagram: 11/27/17 0630 11/27/17 0630 Imaging Last Impressions Chest X-Ray 11/24/17 0000 Signed Impressions: Service Date/Time: Friday, November 24, 2017 17:55 - CONCLUSION: 1. Cardiomegaly with mild positive fluid balance. Michoacano Dean MD Head CT 11/22/17 1907 Signed Impressions: Service Date/Time: Wednesday, November 22, 2017 19:57 - CONCLUSION: 1. No acute abnormality seen. 2. Mild atrophy. Walter White MD Renal Ultrasound 11/22/17 0000 Signed Impressions: Service Date/Time: Wednesday, November 22, 2017 21:58 - CONCLUSION: 1. Moderate bilateral hydronephrosis with left ureter dilated throughout its course. 2. Small amount of bladder debris. 3. Increased renal echogenicity characteristic of medical renal disease. Isidro Landeros MD Assessment and Plan Assessment and Plan Low grade MRSA bacteremia Sepsis UTI, MRSA Obtructive uropathy - resolved with roman ARF - resolved DM cont vancomycin dc zosyn 2 D echo Fanny Phelps MD November 27, 2017 15:15
--- NOTE | 2017-11-27 17:29 | HHI.HCPN ---
Reason for visit a. To assist with evaluation and management of symptoms including: pain, debility, encephalopathy b. To assist medical decision maker(s) with: better understanding of current medical conditions; weighing benefits/burdens of medical treatment options; making medical treatment decisions. . Subjective/Interval History Mr. Rosenberg is a 77 year old male admitted 11/22/17 for management hyperkalemia, acute renal failure, UTI and altered mental status. Follow-up visit for symptom management of pain, debility and encephalopathy as well as clarification of medical treatment goals. Patient was transferred from the intensive care unit to a Med/Surg floor. On examination the patient is alert and engaged in conversation. He has no complaints; denies dyspnea and/or pain. Patient states he is anxious to return to his home at [facility]. Afebrile. Urine culture from 11/25/17: + MRSA; patient has received 5 doses of Zosyn from 11/26/17 through 11/27/17 and vancomycin 1. Infectious disease consult pending. Echocardiogram pending. Recent lab work from 11/27/2017 reviewed: = WBC: 6.9, hemoglobin 7.8, hematocrit 23.9, platelets 252, neutrophils 74.5% = BNP: 756 Patient previously had designated his friend (Sarah Pratt) as his healthcare surrogate decision-maker, but Ms. Pratt has stated she does not wish to act in the role of healthcare surrogate decision-maker stating her spiritism may make it difficult for her to honor the patient's wishes. Discussed designation of another healthcare surrogate with the patient today 11/27/2017. Eran Guerrier has been designated as the primary healthcare surrogate decision maker and Macy Elliott is designated as the alternate healthcare surrogate decision maker. Palliative care spoke to both individuals who verbalizes willingness to act in this role. Copies of the HCS designation form was placed in the patient' s chart, provided to friend (Macy Elliott) at bedside and faxed to HIM to be scanned into the patient's EMR. The patient was given the original document. Additional written advance directives, such as a living will, were discussed at length with the patient who states he "wants everything" up to and including intubation with mechanical ventilation and tracheostomy/PEG tube placement if indicated. . Family/friend interactions See interval history . Advance Directives Health Care Surrogate: Copy in medical record Advance Directive Specifics Date completed: Healthcare surrogate designation form was redone on 11/27/2017. . Health Care Surrogate(s): Patient designates friend (Eran Guerrier) as the primary healthcare surrogate decision maker. Macy Elliott is designated as the alternate healthcare surrogate decision maker. . Documented care wishes: No documented care wishes have been completed other than the above mentioned HCS designation form. . Objective Vital Signs Date Time Temp Pulse Resp B/P (MAP) Pulse Ox O2 Delivery O2 Flow Rate FiO2 11/27/17 12:00 98.0 81 20 157/67 (97) 99 11/27/17 08:56 99 Nasal Cannula 2.00 11/27/17 08:00 98 Nasal Cannula 2.00 11/27/17 08:00 97.9 77 20 144/63 (90) 100 11/27/17 04:35 99 Nasal Cannula 2.00 11/27/17 04:00 Nasal Cannula 2.00 11/27/17 04:00 98.5 79 16 140/69 (92) 94 11/27/17 00:06 94 Nasal Cannula 2.00 11/27/17 00:00 Nasal Cannula 2.00 11/27/17 00:00 98.6 78 16 139/76 (97) 94 11/26/17 22:30 99 Nasal Cannula 2.00 11/26/17 22:00 97.3 80 20 162/71 (101) 99 11/26/17 20:35 100 Nasal Cannula 2.00 11/26/17 20:00 97.5 74 152/66 (94) 100 11/26/17 20:00 74 11/26/17 18:00 74 Intake & Output 11/27/17 11/27/17 07:00 19:00 Intake Total 950 ml 570 ml Output Total 1300 ml Balance -350 ml 570 ml Intake Oral 350 ml IV Total 600 ml 570 ml Output Urine Total 1300 ml . Physical Exam CONSTITUTIONAL/GENERAL: This is an adequately nourished patient, in no apparent distress. TUBES/LINES/DRAINS: urinary cath, PIV x 2, nasal cannula SKIN: No jaundice, rashes, or lesions. Ecchymoses on upper extremities. No wounds seen anteriorly. Skin temperature appropriate. Not diaphoretic. HEAD: Atraumatic. Normocephalic. EYES: Pupils equal and round and reactive. Extraocular motions intact. No scleral icterus. No injection or drainage. Fundi not examined. ENT: Hearing grossly normal. Nose without bleeding or purulent drainage. Throat without visible erythema, exudates, masses, or lesions. NECK: Trachea midline. Supple, nontender. No palpable thyroid enlargement or nodularity. CARDIOVASCULAR: Regular rate and rhythm without murmurs, gallops, or rubs. No JVD. Peripheral pulses symmetric. RESPIRATORY/CHEST: Symmetric, unlabored respirations. Clear to auscultation. Breath sounds equal bilaterally. No wheezes, rales, or rhonchi. GASTROINTESTINAL: Abdomen soft, non-tender, nondistended. No guarding. Bowel sounds present. GENITOURINARY: Without palpable bladder distension. Yang catheter draining cloudy, al urine. MUSCULOSKELETAL: Extremities without clubbing, cyanosis, or edema. No mottling or clubbing. LYMPHATICS: No palpable cervical or supraclavicular adenopathy. NEUROLOGICAL: Alert and oriented to person place and situation. Able to engage in conversation and follows commands. Moving all extremities with purpose. PSYCHIATRIC: No obvious anxiety/depression. no apparent hallucinations or other psychotic thought process. . Diagnostic Tests Laboratory Laboratory Tests Test 11/24/17 16:53 11/25/17 00:00 11/25/17 07:43 11/26/17 03:27 Blood Gas Puncture Site LT RADIAL Blood Gas Patient Temperature 98.6 Blood Gas HCO3 21 mmol/L (22-26) Blood Gas Base Excess -3.7 mmol/L (-2-2) Blood Gas Oxygen Saturation 92 % (90-100) Arterial Blood pH 7.34 (7.380-7.420) Arterial Blood Partial Pressure CO2 41 mmHg (38-42) Arterial Blood Partial Pressure O2 74 mmHg (61-120) Arterial Blood Oxygen Content 10.1 Vol % (12.0-20.0) Arterial Blood Carboxyhemoglobin 1.1 % (0-4) Arterial Blood Methemoglobin 1.5 % (0-2) Blood Gas Hemoglobin 7.7 G/DL (12.0-16.0) Blood Gas Inspired Oxygen 21 % Urine Color LIGHT-YELLOW (YELLW/STRAW) Urine Turbidity CLEAR (CLEAR) Urine pH 7.5 (5.0-8.5) Urine Specific [place] 1.012 (1.002-1.035) Urine Protein 300 mg/dL (NEG-TRACE) Urine Glucose (UA) TRACE mg/dL (NEG) Urine Ketones NEG mg/dL (NEG) Urine Occult Blood MOD (NEG) Urine Nitrite NEG (NEG) Urine Bilirubin NEG (NEG) Urine Urobilinogen LESS THAN 2.0 MG/DL (LESS Urine Leukocyte Esterase NEG (NEG) Urine RBC /hpf (0-3) Urine WBC 14 /hpf (0-5) Microscopic Urinalysis Comment CATH-CULTURE IND Urine Random Creatinine 30.0 MG/DL Urine Random Sodium 123 MEQ/L White Blood Count 9.3 TH/MM3 (4.0-11.0) Red Blood Count 2.62 MIL/MM3 (4.50-5.90) Hemoglobin 7.5 GM/DL (13.0-17.0) Hematocrit 23.2 % (39.0-51.0) Mean Corpuscular Volume 88.4 FL (80.0-100.0) Mean Corpuscular Hemoglobin 28.7 PG (27.0-34.0) Mean Corpuscular Hemoglobin Concent 32.4 % (32.0-36.0) Red Cell Distribution Width 15.2 % (11.6-17.2) Platelet Count 312 TH/MM3 (150-450) Mean Platelet Volume 5.4 FL (7.0-11.0) Neutrophils (%) (Auto) 86.5 % (16.0-70.0) Lymphocytes (%) (Auto) 5.2 % (9.0-44.0) Monocytes (%) (Auto) 4.6 % (0.0-8.0) Eosinophils (%) (Auto) 2.9 % (0.0-4.0) Basophils (%) (Auto) 0.8 % (0.0-2.0) Neutrophils # (Auto) 8.1 TH/MM3 (1.8-7.7) Lymphocytes # (Auto) 0.5 TH/MM3 (1.0-4.8) Monocytes # (Auto) 0.4 TH/MM3 (0-0.9) Eosinophils # (Auto) 0.3 TH/MM3 (0-0.4) Basophils # (Auto) 0.1 TH/MM3 (0-0.2) CBC Comment DIFF FINAL Differential Comment Blood Urea Nitrogen 32 MG/DL (7-18) 31 MG/DL (7-18) Creatinine 2.86 MG/DL (0.60-1.30) 2.85 MG/DL (0.60-1.30) Random Glucose 105 MG/DL (74-106) 95 MG/DL (74-106) Total Protein 7.2 GM/DL (6.4-8.2) Albumin 2.1 GM/DL (3.4-5.0) Calcium Level 8.8 MG/DL (8.5-10.1) 8.7 MG/DL (8.5-10.1) Phosphorus Level 4.1 MG/DL (2.5-4.9) Magnesium Level 2.0 MG/DL (1.5-2.5) Alkaline Phosphatase 78 U/L (45-117) Aspartate Amino Transf (AST/SGOT) 16 U/L (15-37) Alanine Aminotransferase (ALT/SGPT) 16 U/L (12-78) Total Bilirubin 0.3 MG/DL (0.2-1.0) Sodium Level 146 MEQ/L (136-145) 146 MEQ/L (136-145) Potassium Level 4.4 MEQ/L (3.5-5.1) 4.1 MEQ/L (3.5-5.1) Chloride Level 114 MEQ/L (98-107) 115 MEQ/L (98-107) Carbon Dioxide Level 23.3 MEQ/L (21.0-32.0) 22.5 MEQ/L (21.0-32.0) Anion Gap 9 MEQ/L (5-15) 9 MEQ/L (5-15) Estimat Glomerular Filtration Rate 22 ML/MIN (>89) 22 ML/MIN (>89) Ammonia 21 MCMOL/L (11-32) B-Type Natriuretic Peptide 1485 PG/ML (0-100) Test 11/27/17 06:30 White Blood Count 6.9 TH/MM3 (4.0-11.0) Red Blood Count 2.69 MIL/MM3 (4.50-5.90) Hemoglobin 7.8 GM/DL (13.0-17.0) Hematocrit 23.9 % (39.0-51.0) Mean Corpuscular Volume 88.7 FL (80.0-100.0) Mean Corpuscular Hemoglobin 28.8 PG (27.0-34.0) Mean Corpuscular Hemoglobin Concent 32.4 % (32.0-36.0) Red Cell Distribution Width 15.5 % (11.6-17.2) Platelet Count 252 TH/MM3 (150-450) Mean Platelet Volume 5.3 FL (7.0-11.0) Neutrophils (%) (Auto) 74.5 % (16.0-70.0) Lymphocytes (%) (Auto) 9.4 % (9.0-44.0) Monocytes (%) (Auto) 5.4 % (0.0-8.0) Eosinophils (%) (Auto) 9.9 % (0.0-4.0) Basophils (%) (Auto) 0.8 % (0.0-2.0) Neutrophils # (Auto) 5.1 TH/MM3 (1.8-7.7) Lymphocytes # (Auto) 0.6 TH/MM3 (1.0-4.8) Monocytes # (Auto) 0.4 TH/MM3 (0-0.9) Eosinophils # (Auto) 0.7 TH/MM3 (0-0.4) Basophils # (Auto) 0.1 TH/MM3 (0-0.2) CBC Comment DIFF FINAL Differential Comment Blood Urea Nitrogen 32 MG/DL (7-18) Creatinine 2.81 MG/DL (0.60-1.30) Random Glucose 97 MG/DL (74-106) Calcium Level 8.5 MG/DL (8.5-10.1) Sodium Level 143 MEQ/L (136-145) Potassium Level 3.9 MEQ/L (3.5-5.1) Chloride Level 112 MEQ/L (98-107) Carbon Dioxide Level 21.0 MEQ/L (21.0-32.0) Anion Gap 10 MEQ/L (5-15) Estimat Glomerular Filtration Rate 22 ML/MIN (>89) B-Type Natriuretic Peptide 756 PG/ML (0-100) . Result Diagram: 11/27/1762911/27/17629 Microbiology Microbiology Date/Time Source Procedure Growth Status 11/25/17 00:00 Urine Catheterized Urine Urine Culture - Preliminary S. Aureus Mrsa Staphylococcus Species Resulted . Assessment and Plan Disease Oriented Problem List: (1) UTI (urinary tract infection) (2) Acute on chronic renal failure (3) Hyperkalemia (4) Acute metabolic encephalopathy (5) HTN (hypertension) (6) CHF (congestive heart failure) (7) CAD (coronary artery disease) (8) Obesity Symptom Scale: (1) Pain 0-10 Scale: 0 Comment: Patient denies pain on 11/27/2017 . (2) Encephalopathy 0-10 Scale: 0 Comment: Resolved 11/27/2017; patient oriented to person place and situation. . (3) Debility 0-10 Scale: Unable to quantify Pertinent Non-Medical Issues Psychosocial: Patient was in [place], [place]. He states he had no siblings. He moved to [place] while working with the [employer]. 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 He was 3 times (Blanka, Dayanara and Brisa akmegan Frost). He states he had 4 children (Kinjal, Pedro Luis, Russel and Lee ) who were born in [place], [place]. The patient states his children were taken away from there mother by the state, and he does not know where they ended up. Spiritual: Jehovah'[employer] Witness fabien Legal: Patient's friend (Eran Guerrier) has been designated as the primary healthcare surrogate decision maker; Macy Elliott is designated as the alternate healthcare surrogate decision maker. Ethical issues impacting care: None known . Important Contacts Eran Guerrier,friend: [phone] Macy Elliott, friend: [phone] Sarah Pratt, friend: [phone] . Prognosis Patient is a 77 year old male with a complex medical history that includes CAD, previous cardiac arrest, previous urosepsis/recurrent UTI, GI bleed, CKD, COPD, CHF, hypertension and altered mental status. H has been skilled nursing resident since an acute decline that began in March,. Given the patient's advanced age, recent acute decline and complex medical history, it is likely he will continue to experience setbacks and complications with associated rehospitalization. His overall prognosis is poor. . Code Status: Full Code Plan * FULL CODE * Decision-making: Patient has insight and judgment toward his medical conditions at this time. Healthcare surrogate designation form was redone today 11/27/2017 and designates friend (Eran Guerrier) as the primary healthcare surrogate decision maker and (Macy Elliott) as the alternate healthcare surrogate decision maker. Palliative care spoke to both individuals who verbalizes willingness to act in this role * AGGRESSIVE GOALS. Patient indicates he "wants everything" up to and including intubation with mechanical ventilation and tracheostomy/PEG tube placement if indicated. * Discussed medical treatment goals with RNNatalie. * Symptom managementdebility: Per EMR, patient previously stated he was living in dependently and fully functioning prior to his initial hospitalization at [facility] in March,. The patient now lives at [facility]. He states he will likely be unable to return to his home secondary to his continued decline. Patient previously reported progressively worsening fatigue and weight loss. He states he has become more weak and has had worsening shortness of breath. * Symptom managementencephalopathy: Presented to [facility] ED on 11/22/17 via EMS for evaluation of altered mental status. Per report, patient had become increasingly confused and somnolent over the previous 24-48 hours. He is communicative at baseline but would not answer questions or follow commands on exam. CT brain showed mild atrophy; no acute abnormalities were seen. Symptoms of encephalopathy have resolved 11/27/2017-patient oriented to person place and situation. * Palliative care will continue to follow patient throughout his hospitalization to establish trust, assist with symptom management and clarification of medical treatment goals. . Time Spent Total Floor Time (mins): 40 (Total time to include review of medical notes, patient's examination and collaboration with RN. Advanced care planning was discussed with the patient at his request. A total of 18 minutes was spent explaining and discussing advanced directives living will and healthcare surrogate designation form as well as assisting patient in completing healthcare designation form.) >50% Counseling/Coord of Care: Yes Attestation To help prompt me to consider important information that might be impacting today's encounter and assessment, information from prior notes written by myself or my colleagues may have been "brought forward" into today's note. My signature on this note, however, is an attestation that I personally performed the exam, history, and/or decision-making noted today, and, unless otherwise indicated, the interactions with patient, family, and staff as well as the review of records all occurred today. I also attest that the listed assessment and stated plan reflect my best clinical judgment today based on the combination of historical information, prior notes, and today's exam/ interactions. When time spent is documented, it refers only to time spent today by the signer, or if indicated, combined time spent today by collaborating physician/nurse practitioner. . Margarita Frank November 27, 2017 17:29
[2017-11-27] MEDS: TAMSULOSIN HCL 0.4 MG CAP PO SCH (20:49)
[2017-11-27] MEDS ORDERED: MELATONIN 5 MG TAB PO ONE (21:45)
[2017-11-28] VITALS (7 sets, daily range): BP systolic 149–181; BP diastolic 66–81; PULSE 88–95; RESP 20; TEMP 97.9–98.3; O2SAT 94–99
[2017-11-28] MEDS: INSULIN ASPART SUPPLEMENTAL SCALE SQ SCH ×6 (03:00→22:16)
[2017-11-28] MEDS: RESP: ALBUTEROL 2.5 MG/IPRATROPIUM 0.5 MG NEB (SCH) INH ×5 (03:23→22:14)
[2017-11-28] MEDS: CHLORHEXIDINE GLUCONATE 2 % 1 PACK (2 CLOTHS) TOP SCH (03:55)
[2017-11-28] MEDS: DULoxetine HCl DR 20 MG CAP PO SCH (08:55)
[2017-11-28] MEDS: GABAPENTIN 100 MG CAP PO SCH (08:55)
[2017-11-28] MEDS: CLOPIDOGREL 75 MG TAB PO SCH (08:55)
[2017-11-28] MEDS: FLUTICASONE 100 MCG/VILANTEROL 25 MCG INHALER INH SCH (08:56)
[2017-11-28] MEDS: FAMOTIDINE 20 MG TAB PO SCH ×2 (08:56→20:01)
[2017-11-28] MEDS: BACLOFEN 10 MG TAB PO SCH ×2 (08:56→20:01)
--- NOTE | 2017-11-28 09:18 | HHI.PR ---
Subjective Remarks in no acute distress. denies pain. no fever. no new complaints. Objective Vitals Vital Signs Date Time Temp Pulse Resp B/P (MAP) Pulse Ox O2 Delivery O2 Flow Rate FiO2 11/28/17 04:00 Room Air 11/28/17 04:00 98.1 92 20 166/72 (103) 94 11/28/17 00:00 98.1 88 20 157/69 (98) 96 11/28/17 00:00 Room Air 11/27/17 20:21 99 11/27/17 20:00 Room Air 11/27/17 20:00 98.2 90 20 143/63 (89) 95 11/27/17 16:00 97.9 89 20 177/76 (109) 95 11/27/17 12:00 98.0 81 20 157/67 (97) 99 I/O 11/27/17 11/27/17 11/27/17 11/28/17 11/28/17 11/28/17 06:59 14:59 22:59 06:59 14:59 22:59 Intake Total 450 ml 570 ml 480 ml 0 ml Output Total 1300 ml 900 ml 1075 ml Balance -850 ml 570 ml -420 ml -1075 ml Intake Oral 350 ml 480 ml 0 ml IV Total 100 ml 570 ml Output Urine Total 1300 ml 900 ml 1075 ml # Bowel Movements 0 0 Result Diagram: 11/27/17 0630 11/27/17 0630 Imaging Last Impressions Chest X-Ray 11/24/17 0000 Signed Impressions: Service Date/Time: Friday, November 24, 2017 17:55 - CONCLUSION: 1. Cardiomegaly with mild positive fluid balance. Michoacano Dean MD Head CT 11/22/17 190 Signed Impressions: Service Date/Time: Wednesday, November 22, 2017 19:57 - CONCLUSION: 1. No acute abnormality seen. 2. Mild atrophy. Walter White MD Renal Ultrasound 11/22/17 0000 Signed Impressions: Service Date/Time: Wednesday, November 22, 2017 21:58 - CONCLUSION: 1. Moderate bilateral hydronephrosis with left ureter dilated throughout its course. 2. Small amount of bladder debris. 3. Increased renal echogenicity characteristic of medical renal disease. Isidro Landeros MD Objective Remarks GENERAL: This is a well-nourished, well-developed patient, in no apparent distress. CARDIOVASCULAR: Regular rate and regular rhythm without murmurs, gallops, or rubs. RESPIRATORY: Clear to auscultation. Breath sounds equal bilaterally. No wheezes , rales, or rhonchi. GASTROINTESTINAL: Abdomen soft, non-tender, nondistended. Normal, active bowel sounds MUSCULOSKELETAL: Extremities without clubbing, cyanosis, or edema. NEURO: Alert & Oriented x4 to person, place, time, situation. Moves all ext x4 Medications and IVs Inpatient Medications Acetaminophen/ Hydrocodone Bitart ([place] 5-325 Mg) 1 tab Q4H PRN PO PAIN SCALE 1 TO 10 Last administered on 11/27/17 17:01; Start 11/26/17 at 19:45 Albuterol Sulfate (Albuterol Neb) 2.5 mg Q2HR NEB PRN NEB WHEEZING; Start 11/24 at 16:45 Albuterol/ Ipratropium (Duoneb Neb) 1 ampule Q4HR NEB INH Last administered on 11/28/17at 07:55; Start 11/26/17 at 20:00 Amlodipine Besylate (Norvasc) 5 mg DAILY OG-TUBE Last administered on at 09:52; Start 11/24/17 at 20:15 Baclofen (Lioresal) 5 mg Q12H PO Last administered on 11/28/17 08:56; Start at 20:00 Calcium Gluconate (Calcium Gluconate Inj) 1 gm ONCE ONCE SLOW IVP Last administered on 11/22/17at 21:41; Start 11/22/17 at 20:30; Stop 11/22/17 at 20:31 ; Status DC Calcium Gluconate 2 gm/Sodium Chloride 120 ml @ 120 mls/hr ONCE ONCE IV Last administered on 11/23/17at 21:59; Start 11/23/17 at 21:30; Stop 11/23/17 at 22:29 ; Status DC Chlorhexidine Gluconate (Chlorhexidine 2% Cloth) 3 pack UNSCH PRN TOP HYGIENIC CARE; Start 11/22/17 at 21:45 Clopidogrel Bisulfate (Plavix) 75 mg DAILY PO Last administered on 11/28/17at 08 :55; Start 11/23/17 at 09:00 Dextrose (D50w (Syr) Inj) 25 ml ONCE ONCE IV PUSH Last administered on 22:04; Start 11/23/17 at 21:30; Stop 11/23/17 at 21:31; Status DC Dextrose (D50w (Vial) Inj) 50 ml ONCE ONCE IV PUSH Last administered on 10:26; Start 11/23/17 at 09:30; Stop 11/23/17 at 09:31; Status DC Duloxetine HCl (Cymbalta Dr) 40 mg DAILY PO Last administered on 11/28/17 08: 55; Start 11/27/17 at 09:00 Famotidine (Pepcid Inj) 10 mg Q12H IV PUSH Last administered on 11/26/17 23:28 ; Start 11/23/17 at 11:00; Stop 11/27/17 at 11:36; Status DC Famotidine (Pepcid) 10 mg BID PO Last administered on 11/28/17 08:56; Start at 12:00 Fluticasone/ Vilanterol (Breo Ellipta 100-25 Inh) 1 puff DAILY INH Last administered on 11/28/17 08:56; Start 11/23/17 at 09:00 Furosemide (Lasix Inj) 20 mg ONCE ONCE IV PUSH Last administered on 11/26/17 20:26; Start 11/26/17 at 19:30; Stop 11/26/17 at 19:31; Status DC Gabapentin (Neurontin) 100 mg DAILY PO Last administered on 11/28/17 08:55; Start 11/26/17 at 19:45 Heparin Sodium (Porcine) (Heparin Inj) 5,000 units Q12H SQ Last administered on 11/27/17at 20:50; Start 11/22/17 at 22:00 Insulin Aspart (NovoLOG SUPPLEMENTAL SCALE) 1 Q4H SQ ; Start 11/22/17 at 23:00 Insulin Human Regular (NovoLIN R INJ) 10 units ONCE ONCE IV PUSH Last administered on 11/23/17at 22:10; Start 11/23/17 at 21:30; Stop 11/23/17 at 21:38 ; Status DC Labetalol HCl (Trandate Inj) 10 mg Q4H PRN IV PUSH SBP >165 Last administered on 11/25/17at 21:29; Start 11/24/17 at 12:15 Melatonin (Melatonin) 5 mg ONCE ONCE PO Last administered on 11/27/17 21:58; Start 11/27/17 at 21:45; Stop 11/27/17 at 21:46; Status DC Miscellaneous (Pill Splitter) 1 ea UNSCH PRN OTHER SEE LABEL COMMENTS; Start at 20:00 Miscellaneous Information ([facility] Nursing Information) 1 Q361D XX Last administered on 11/22/17at 21:45; Start 11/22/17 at 21:45 Pharmacy Profile Note 0 ml @ 0 mls/hr UNSCH OTHER ; Start 11/27/17 at 09:00 Piperacillin Sod/ Tazobactam Sod 50 ml @ 100 mls/hr Q6H IV Last administered on 11/27/17at 11:57; Start 11/26/17 at 11:00; Stop 11/27/17 at 15:20; Status DC Sodium Polystyrene Sulfonate (Kayexalate Liq) 15 gm ONCE ONCE PO Last administered on 11/23/17at 22:03; Start 11/23/17 at 21:30; Stop 11/23/17 at 21:38 ; Status DC Sodium Bicarbonate (Sodium Bicarbonate 8.4% Inj) 50 meq ONCE ONCE IV PUSH Last administered on 11/23/17at 22:04; Start 11/23/17 at 21:30; Stop 11/23/17 at 21:38; Status DC Sodium Chloride 1,000 ml @ 100 mls/hr Q10H IV Last administered on 11/26/17at 14:43; Start 11/24/17 at 12:00; Stop 11/26/17 at 18:47; Status DC Sodium Chloride (NS Flush) 2 ml UNSCH PRN IV FLUSH FLUSH AFTER USING IV ACCESS Last administered on 11/27/17 09:51; Start 11/22/17 at 19:15 Tamsulosin HCl (Flomax) 0.4 mg HS PO Last administered on 11/27/17at 20:49; Start 11/23/17 at 21:00 Vancomycin HCl 1000 mg/Sodium Chloride 250 ml @ 250 mls/hr ONCE ONCE IV Last administered on 11/22/17at 22:37; Start 11/22/17 at 22:00; Stop 11/22/17 at 22:59 ; Status DC Vancomycin HCl 2000 mg/Sodium Chloride 520 ml @ 250 mls/hr ONCE ONCE IV Last administered on 11/27/17at 09:54; Start 11/27/17 at 10:00; Stop 11/27/17 at 12:04 ; Status DC A/P Problem List: (1) Altered mental status ICD Code: R41.82 - Altered mental status, unspecified Status: Acute (2) UTI (urinary tract infection) ICD Code: N39.0 - Urinary tract infection, site not specified Status: Acute (3) Acute on chronic renal failure ICD Code: N17.9 - Acute kidney failure, unspecified; N18.9 - Chronic kidney disease, unspecified Status: Acute (4) Hyperkalemia ICD Code: E87.5 - Hyperkalemia Status: Resolved (5) Acute metabolic encephalopathy ICD Code: G93.41 - Metabolic encephalopathy Status: Resolved (6) HTN (hypertension) ICD Code: I10 - Essential (primary) hypertension Status: Acute (7) Obesity ICD Code: E66.9 - Obesity, unspecified Status: Acute (8) CHF (congestive heart failure) ICD Code: I50.9 - Heart failure, unspecified Status: Acute (9) CAD (coronary artery disease) ICD Code: I25.10 - Atherosclerotic heart disease of [place] coronary artery without angina pectoris Status: Acute Assessment and Plan Acute metabolic encephalopathy, resolved -Altered mentation was felt to be secondary to sepsis, now back to baseline. - CT brain 11/22 - negative -ABG did not reveal elevated PCO2, ammonia level normal. -EEG triphasic waves c/w severe diffuse encephalopathy. Could increase risk for seizure. No clinical seizure activity and mental status now at baseline. Consider neurology consult for anticonvulsant if there is clinical seizure or if mental status worsens. - Resumed gabapentin 100 mg but changed to once daily in view of renal function and recent mental status issues. -Resumed baclofen but dose adjust to 5 mg q12 based on renal function. -Resumed cymbalta -[place] prn. History of COPD -Nasal cannula oxygen to keep SaO2 >90% -DuoNeb every 4 hours scheduled and as needed. Albuterol q2. -Continue Breo Ellipta History of coronary artery disease History of cardiac arrest Continue Plavix HTN Norvasc 5 mg po daily. Labetalol prn . -Hold lisinopril due to worsening renal failure. h/o Dysphagia - Now able to swallow and diet advanced. - famotidine Acute on chronic kidney disease Acute obstructive uropathy. Hyperkalemia Type 2 diabetes -Monitor BMP, Yang in place. - Continuing flomax 0.4 mg po qhs that he is on chronically. Will need urology followup as outpatient, seen as inpatient but no additional therapy recommended. Yang to remain in place until f/u. -Potassium now normalized following medical management. -Nephrology Dr. Lima following. -Renal ultrasound shows bilateral hydronephrosis. UTI Severe sepsis MRSA bacteremia -Follow-up on blood and urine culture -IV vancomycin 1 GM x1 11/22 - pharmacy consulted for Vanco dosing. -ID consult appreciated. -echo pending. Patient is reportedly designated full code at care home. He does not have an advanced directive on file at the care home. There is no family contact. There is contact information for a friend named Sarah Pratt who was a neighbor but she states she was never formally designated his healthcare surrogate. She was helping him with grocery shopping and finances when he was living at home. She states he has no family. She states his closest friend who used to take him to doctor appointments was Eran Vance (spelling unknown) , . Patient is currently not capacitated for medical decision making and it is unclear who would make medical decisions on his behalf. Palliative care following. Discharge Planning possible discharge within the next one-two days -pending echo/ ID follow-up. Problem Qualifiers (1) Altered mental status: Qualified Codes: R41.82 - Altered mental status, unspecified (2) UTI (urinary tract infection): Qualified Codes: N39.0 - Urinary tract infection, site not specified; R31.9 - Hematuria, unspecified Felipe Gonzalez MD November 28, 2017 09:18
--- NOTE | 2017-11-28 09:24 | PQ ---
Physician Query Response Document PATIENT: JENNIFER MCDONNELL : 1940 ADMIT DATE: 11/22/2017 9:37 PM DISCH DATE: RESPONDING PROVIDER #: [email or web address] QUERY TEXT: CDS Clarification UTI due to indwelling urethral catheter, POA in setting of Sepsis with altered mentation, requiring t reatment with IV Zosyn, IV Vancomycin Other explanation of clinical findings. Unable to determine (no explanation for clinical findings). The patient's Clinical Indicators include: The medical record reflects the following clinical findings, treatment, and risk factors. * Clinical Indicators - Positive UA, WBC 12.3, hydroureter w/ bilateral hydronephrosis per renal Ultr asound * Risk Factors- Chronic Yang catheter, h/o recurrent UTI and Bladder outlet obstruction * Treatment - IV Zosyn q8h, IV Vancomycin x 1, Yang catheter replaced Please clarify and document your clinical opinion in the progress notes and discharge summary includi ng the definitive and/or presumptive diagnosis (suspected or probable), related to the above clinical findings. Please include clinical findings supporting your diagnosis. Thank you, Katya Hernadez CDS: Katya Hernadez Contact Number: [employer] ext. [phone] Query created by: Katya Hernadez on 11/27/2017 3:47 PM RESPONSE TEXT: Complicated UTI due to indwelling urethral catheter. Electronically signed by: Felipe Gonzalez MD 11/28/2017 9:20 AM
[2017-11-28] MEDS: HEPARIN SODIUM - SQ 10,000 UNITS/ML VIAL SQ SCH ×2 (10:00→20:00)
[2017-11-28] MEDS: amLODIPine BESYLATE 5 MG TAB OG-TUBE SCH (10:00)
--- NOTE | 2017-11-28 10:54 | HHI.NPPN ---
Subjective Renal Failure: Chronic, Acute Interval History He is awake and alert. Non oliguric. Labs from today are not available. (Mariza Loya) Objective Data Data Vital Signs Date Time Temp Pulse Resp B/P (MAP) Pulse Ox O2 Delivery O2 Flow Rate FiO2 11/28/17 09:19 97 Room Air 11/28/17 08:00 98.0 95 20 172/81 (111) 97 11/28/17 04:00 Room Air 11/28/17 04:00 98.1 92 20 166/72 (103) 94 11/28/17 00:00 98.1 88 20 157/69 (98) 96 11/28/17 00:00 Room Air 11/27/17 20:21 99 11/27/17 20:00 Room Air 11/27/17 20:00 98.2 90 20 143/63 (89) 95 11/27/17 16:00 97.9 89 20 177/76 (109) 95 11/27/17 12:00 98.0 81 20 157/67 (97) 99 (Mariza Loya) -: 11/27/17 0630 11/27/17 0630 Tubes & Lines: Roman (Mariza Loya) Physical Exam General Appearance: Well Developed, Well Nourished, No Acute Distress, Comfortable (Mariza Loya) Neck Neck Exam: Neck Supple (Mariza Loya) Pulmonary Resp Exam: Decreased Bases (Mariza Loya) Cardiology CV Exam: Regular, Normal Sinus Rhythm (Mariza Loya) Gastrointestinal/Abdomen GI Exam: Soft, Non-Tender, Bowel Sounds Present (Mariza Loya) Genitourinary Exam: Clear Urine (Mariza Loya) Musculoskeletal MS Exam: Joints Intact, Normal Tone (Mariza Loya) Integumentary Skin Exam: Clear, Warm, Dry, Intact (Mariza Loya) Extremeties Extremities Exam: No Edema, Pedal Pulses Palpable (Mariza Loya) Neurologic Neuro Exam: Alert, Awake, Oriented, Speech Clear, Moving All Extremities (Mariza Loya) Psychiatric Psych Exam: Appropriate Responses (Mariza Loya) Assessment/Plan Discussed Condition With: Patient Problem List: (1) Acute on chronic renal failure ICD Codes: N17.9 - Acute kidney failure, unspecified; N18.9 - Chronic kidney disease, unspecified Status: Acute Plan: He has underlying CKD. Seen in the office in October, at that time he was in [place] due to hydronephrosis, referred to urology for treatment. His creatinine yesterday is the best it has been compared to our last few visits. His CKD likely due to DM/HTN. He has proteinuria on exam. [place] secondary to obstructive uropathy Seen by urology. Roman was replaced, to be discharged with it Has follow up appt January 19 at [place], most likely due to insurance reasons On Flomax He is non oliguric PO fluids encouraged Avoid nephrotoxic agents. (2) UTI (urinary tract infection) ICD Codes: N39.0 - Urinary tract infection, site not specified Status: Acute Plan: with sepsis Hx of frequent UTI, culture + MRSA On vancomycin, off Zosyn Noted ALLERGY TO QUINOLONES. He is on antibiotics with Zosyn as well as was given at 1 dose of vancomycin. Closely monitor renal function and renal dose when appropriate At discharge will need roman replaced every 30 days. (3) Hyperkalemia ICD Codes: E87.5 - Hyperkalemia Status: Resolved Plan: corrected, monitor (4) Acute metabolic encephalopathy ICD Codes: G93.41 - Metabolic encephalopathy Status: Resolved Plan: most likely due to UTI. Continue to monitor. Improved (5) Sepsis ICD Codes: A41.9 - Sepsis, unspecified organism Plan: Urosepsis See above Echo ordered to rule out endocarditis (Mariza Loya) Plan patient was seen and examined. Renal function is worse today. Could be due to Vancomycin. Monitor. Avoid nephrotoxic agents. May have advanced CKD due to long standing obstructive uropathy. (Curt Bal MD) Problem Qualifiers (1) UTI (urinary tract infection): Qualified Codes: N39.0 - Urinary tract infection, site not specified; R31.9 - Hematuria, unspecified Mariza Loya November 28, 2017 10:54 Curt Bal MD November 28, 2017 16:14
[2017-11-28 11:39] LABS: ALBUMIN 2.1 GM/DL (3.4-5.0); BICARBONATE 22.4 MEQ/L (21.0-32.0); CALCIUM 8.3 MG/DL (8.5-10.1); CREATININE 3.41 MG/DL (0.60-1.30); PHOSPHORUS 4.6 MG/DL (2.5-4.9)
--- NOTE | 2017-11-28 16:41 | HHI.HCPN ---
Reason for visit a. To assist with evaluation and management of symptoms including: pain, debility, encephalopathy b. To assist medical decision maker(s) with: better understanding of current medical conditions; weighing benefits/burdens of medical treatment options; making medical treatment decisions. . Subjective/Interval History Mr. Rosenberg is a 77 year old male admitted 11/22/17 for management hyperkalemia, acute renal failure, UTI and altered mental status. Follow-up visit for symptom management of pain, debility and encephalopathy as well as clarification of medical treatment goals. Patient was seen and assessed in room 1433. He was alert and oriented to person place and situation. Patient has no complaints; denies dyspnea and or pain. He is eager to return to his "home" at [facility]. Afebrile. Urine culture from 11/25/17: + MRSA, MSSA. Repeat blood culture-no growth in 5 days. Follow-up chest x-ray on 11/24/2017 showed no new pleural or parenchymal opacities. Cardiomegaly with mild positive fluid balance. Diffuse interstitial prominence. Infectious disease is following. Echocardiogram pending. Recent lab work from 11/27/2017: = WBC: 6.9, hemoglobin 7.8, hematocrit 23.9, platelets 252, neutrophils 74.5% = BNP: 756 Patient verbalizing ongoing aggressive goals up to and including intubation as well as tracheostomy/PEG tube placement if it were ever indicated. Plan to return to [facility] upon discharge. . Family/friend interactions See interval history. Advance Directives Health Care Surrogate: Copy in medical record Advance Directive Specifics Date completed: 11/27/2017 . Health Care Surrogate(s): Healthcare designation form was redone on 11/27/2017. Designating Eran Guerrier as the primary healthcare surrogate decision maker and Macy Elliott as the alternate healthcare surrogate decision maker. . Documented care wishes: Patient refused to complete living will on 11/27/2017. . . Objective Vital Signs Date Time Temp Pulse Resp B/P (MAP) Pulse Ox O2 Delivery O2 Flow Rate FiO2 11/28/17 13:56 96 Room Air 11/28/17 12:00 97.9 89 20 169/79 (109) 96 11/28/17 09:19 97 Room Air 11/28/17 08:00 98.0 95 20 172/81 (111) 97 11/28/17 04:00 Room Air 11/28/17 04:00 98.1 92 20 166/72 (103) 94 11/28/17 00:00 98.1 88 20 157/69 (98) 96 11/28/17 00:00 Room Air 11/27/17 20:21 99 11/27/17 20:00 Room Air 11/27/17 20:00 98.2 90 20 143/63 (89) 95 Intake & Output 11/28/17 11/28/17 07:00 19:00 Intake Total 0 ml Output Total 1075 ml Balance -1075 ml Intake Oral 0 ml Output Urine Total 1075 ml # Bowel Movements 0 . Physical Exam CONSTITUTIONAL/GENERAL: This is an adequately nourished patient, in no apparent distress. TUBES/LINES/DRAINS: urinary cath, PIV, nasal cannula SKIN: No jaundice, rashes, or lesions. Ecchymoses on upper extremities. No wounds seen anteriorly. Skin temperature appropriate. Not diaphoretic. HEAD: Atraumatic. Normocephalic. EYES: Pupils equal and round and reactive. Extraocular motions intact. No scleral icterus. No injection or drainage. Fundi not examined. ENT: Hearing grossly normal. Nose without bleeding or purulent drainage. Throat without visible erythema, exudates, masses, or lesions. NECK: Trachea midline. Supple, nontender. No palpable thyroid enlargement or nodularity. CARDIOVASCULAR: Regular rate and rhythm without murmurs, gallops, or rubs. No JVD. Peripheral pulses symmetric. RESPIRATORY/CHEST: Symmetric, unlabored respirations. Clear to auscultation. Breath sounds equal bilaterally. No wheezes, rales, or rhonchi. GASTROINTESTINAL: Abdomen soft, non-tender, nondistended. No guarding. Bowel sounds present. GENITOURINARY: Without palpable bladder distension. Yang catheter draining cloudy, al urine. MUSCULOSKELETAL: Extremities without clubbing, cyanosis, or edema. No mottling or clubbing. LYMPHATICS: No palpable cervical or supraclavicular adenopathy. NEUROLOGICAL: Alert and oriented to person place and situation. Able to engage in conversation and follows commands. Moving all extremities with purpose. PSYCHIATRIC: No obvious anxiety/depression. no apparent hallucinations or other psychotic thought process. . Diagnostic Tests Laboratory Laboratory Tests Test 11/26/17 03:27 11/27/17 06:30 11/28/17 06:26 11/28/17 10:48 Blood Urea Nitrogen 31 MG/DL (7-18) 32 MG/DL (7-18) 31 MG/DL (7-18) Creatinine 2.85 MG/DL (0.60-1.30) 2.81 MG/DL (0.60-1.30) 3.41 MG/DL (0.60-1.30) Random Glucose 95 MG/DL (74-106) 97 MG/DL (74-106) 89 MG/DL (74-106) Calcium Level 8.7 MG/DL (8.5-10.1) 8.5 MG/DL (8.5-10.1) 8.3 MG/DL (8.5-10.1) Sodium Level 146 MEQ/L (136-145) 143 MEQ/L (136-145) 145 MEQ/L (136-145) Potassium Level 4.1 MEQ/L (3.5-5.1) 3.9 MEQ/L (3.5-5.1) 4.0 MEQ/L (3.5-5.1) Chloride Level 115 MEQ/L (98-107) 112 MEQ/L (98-107) 112 MEQ/L (98-107) Carbon Dioxide Level 22.5 MEQ/L (21.0-32.0) 21.0 MEQ/L (21.0-32.0) 22.4 MEQ/L (21.0-32.0) Anion Gap 9 MEQ/L (5-15) 10 MEQ/L (5-15) 11 MEQ/L (5-15) Estimat Glomerular Filtration Rate 22 ML/MIN (>89) 22 ML/MIN (>89) 18 ML/MIN (>89) White Blood Count 6.9 TH/MM3 (4.0-11.0) Red Blood Count 2.69 MIL/MM3 (4.50-5.90) Hemoglobin 7.8 GM/DL (13.0-17.0) Hematocrit 23.9 % (39.0-51.0) Mean Corpuscular Volume 88.7 FL (80.0-100.0) Mean Corpuscular Hemoglobin 28.8 PG (27.0-34.0) Mean Corpuscular Hemoglobin Concent 32.4 % (32.0-36.0) Red Cell Distribution Width 15.5 % (11.6-17.2) Platelet Count 252 TH/MM3 (150-450) Mean Platelet Volume 5.3 FL (7.0-11.0) Neutrophils (%) (Auto) 74.5 % (16.0-70.0) Lymphocytes (%) (Auto) 9.4 % (9.0-44.0) Monocytes (%) (Auto) 5.4 % (0.0-8.0) Eosinophils (%) (Auto) 9.9 % (0.0-4.0) Basophils (%) (Auto) 0.8 % (0.0-2.0) Neutrophils # (Auto) 5.1 TH/MM3 (1.8-7.7) Lymphocytes # (Auto) 0.6 TH/MM3 (1.0-4.8) Monocytes # (Auto) 0.4 TH/MM3 (0-0.9) Eosinophils # (Auto) 0.7 TH/MM3 (0-0.4) Basophils # (Auto) 0.1 TH/MM3 (0-0.2) CBC Comment DIFF FINAL Differential Comment B-Type Natriuretic Peptide 756 PG/ML (0-100) Random Vancomycin Level 21.8 COMMENT Albumin 2.1 GM/DL (3.4-5.0) Phosphorus Level 4.6 MG/DL (2.5-4.9) . Result Diagram: 11/27/17 0630 11/28/17 1048 Assessment and Plan Disease Oriented Problem List: (1) UTI (urinary tract infection) (2) Acute on chronic renal failure (3) Hyperkalemia (4) Acute metabolic encephalopathy (5) HTN (hypertension) (6) CHF (congestive heart failure) (7) CAD (coronary artery disease) (8) Obesity Symptom Scale: (1) Pain 0-10 Scale: 0 Comment: Patient denies pain on 11/27/2017 . (2) Encephalopathy 0-10 Scale: 0 Comment: Resolved 11/27/2017; patient oriented to person place and situation. . (3) Debility 0-10 Scale: Unable to quantify Pertinent Non-Medical Issues Psychosocial: Patient was in [place], [place]. He states he had no siblings. He moved to [place] while working with the [employer]. 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 He was 3 times (Blanka, Dayanara and Brisa aka Santosh). He states he had 4 children (Kinjal, Pedro Luis, Russel and Lee ) who were born in [place], [place]. The patient states his children were taken away from there mother by the state, and he does not know where they ended up. Spiritual: Cheondoism fabien Legal: Patient's friend (Eran Guerrier) has been designated as the primary healthcare surrogate decision maker; Macy Elliott is designated as the alternate healthcare surrogate decision maker. Ethical issues impacting care: None known . Important Contacts Sarah Pratt, friend: [phone] Eran Guerrier,friend: [phone] . Prognosis Patient is a 77 year old male with a complex medical history that includes CAD, previous cardiac arrest, previous urosepsis/recurrent UTI, GI bleed, CKD, COPD, CHF, hypertension and altered mental status. H has been long-term resident since an acute decline that began in March,. Given the patient's advanced age, recent acute decline and complex medical history, it is likely he will continue to experience setbacks and complications with associated rehospitalization. His overall prognosis is poor. . Code Status: Full Code Plan * FULL CODE * Decision-making: Patient has insight and judgment toward his medical conditions at this time. Healthcare surrogate designation form was redone today 11/27/2017 and designates friend (Eran Guerrier) as the primary healthcare surrogate decision maker and (Macy Earl) as the alternate healthcare surrogate decision maker. Palliative care spoke to both individuals who verbalizes willingness to act in this role * AGGRESSIVE GOALS. Patient indicates he "wants everything" including intubation with mechanical ventilation as well as tracheostomy/PEG tube placement if it were indicated. * Discussed medical treatment goals with RNYany. * Symptom managementdebility: Per EMR, patient previously stated he was living in dependently and fully functioning prior to his initial hospitalization at [facility] in March,. The patient now lives at [facility]. He states he will likely be unable to return to his home secondary to his continued decline. Patient previously reported progressively worsening fatigue and weight loss. He states he has become more weak and has had worsening shortness of breath. * Symptom managementencephalopathy: Presented to [place] ED on 11/22/17 via EMS for evaluation of altered mental status. Per report, patient had become increasingly confused and somnolent over the previous 24-48 hours. He is communicative at baseline but would not answer questions or follow commands on exam. CT brain showed mild atrophy; no acute abnormalities were seen. Symptoms of encephalopathy have resolved 11/27/2017-patient oriented to person place and situation. * Palliative care will continue to follow patient throughout his hospitalization to establish trust, assist with symptom management and clarification of medical treatment goals. . Attestation To help prompt me to consider important information that might be impacting today's encounter and assessment, information from prior notes written by myself or my colleagues may have been "brought forward" into today's note. My signature on this note, however, is an attestation that I personally performed the exam, history, and/or decision-making noted today, and, unless otherwise indicated, the interactions with patient, family, and staff as well as the review of records all occurred today. I also attest that the listed assessment and stated plan reflect my best clinical judgment today based on the combination of historical information, prior notes, and today's exam/ interactions. When time spent is documented, it refers only to time spent today by the signer, or if indicated, combined time spent today by collaborating physician/nurse practitioner. . Margarita Frank November 28, 2017 16:41
[2017-11-28] MEDS: SODIUM CHLOR 0.45% 1000 ML INJ 1,000 ML IV SCH (17:32)
[2017-11-28] MEDS: TAMSULOSIN HCL 0.4 MG CAP PO SCH (20:01)
[2017-11-29] VITALS: BP 166/76; PULSE 98; RESP 20; TEMP 97.8; O2SAT 97
[2017-11-29] MEDS: RESP: ALBUTEROL 2.5 MG/IPRATROPIUM 0.5 MG NEB (SCH) INH ×4 (00:20→19:24)
[2017-11-29] MEDS: INSULIN ASPART SUPPLEMENTAL SCALE SQ SCH ×3 (02:00→11:00)
[2017-11-29 04:00] VITALS: BP 161/78; PULSE 85; RESP 20; TEMP 97.9; O2SAT 93
[2017-11-29] MEDS: CHLORHEXIDINE GLUCONATE 2 % 1 PACK (2 CLOTHS) TOP SCH (04:00)
[2017-11-29 08:00] VITALS: BP 150/67; PULSE 92; RESP 20; TEMP 97.7; O2SAT 97
[2017-11-29] MEDS: GABAPENTIN 100 MG CAP PO SCH (08:18)
[2017-11-29] MEDS: DULoxetine HCl DR 20 MG CAP PO SCH (08:18)
[2017-11-29] MEDS: CLOPIDOGREL 75 MG TAB PO SCH (08:19)
[2017-11-29] MEDS: BACLOFEN 10 MG TAB PO SCH ×2 (08:19→21:06)
[2017-11-29] MEDS: amLODIPine BESYLATE 5 MG TAB OG-TUBE SCH (08:19)
[2017-11-29] MEDS: FAMOTIDINE 20 MG TAB PO SCH ×2 (08:19→21:06)
[2017-11-29] MEDS: FLUTICASONE 100 MCG/VILANTEROL 25 MCG INHALER INH SCH (09:00)
--- NOTE | 2017-11-29 09:32 | HHI.PR ---
Subjective Remarks in no acute distress. afebrile. denies pain. no new complaints. Objective Vitals Vital Signs Date Time Temp Pulse Resp B/P (MAP) Pulse Ox O2 Delivery O2 Flow Rate FiO2 11/29/17 08:24 97 Room Air 11/29/17 08:00 97.7 92 20 150/67 (94) 97 11/29/17 04:00 Room Air 11/29/17 04:00 97.9 85 20 161/78 (105) 93 11/29/17 00:00 97.8 98 20 166/76 (106) 97 11/29/17 00:00 Room Air 11/28/17 22:16 99 21 11/28/17 20:00 Room Air 11/28/17 20:00 98.3 90 20 181/77 (111) 94 11/28/17 16:32 95 Room Air 11/28/17 16:00 98.3 91 20 149/66 (93) 95 11/28/17 13:56 96 Room Air 11/28/17 12:00 97.9 89 20 169/79 (109) 96 I/O 11/28/17 11/28/17 11/28/17 11/29/17 11/29/17 11/29/17 07:00 15:00 23:00 07:00 15:00 23:00 Intake Total 0 ml 480 ml 641 ml Output Total 1075 ml 750 ml 1200 ml Balance -1075 ml -270 ml -559 ml Intake Oral 0 ml 480 ml 120 ml IV Total 521 ml Output Urine Total 1075 ml 750 ml 1200 ml # Bowel Movements 0 Result Diagram: 11/27/17 0630 11/28/17 1048 Imaging Last Impressions Chest X-Ray 11/24/17 0000 Signed Impressions: Service Date/Time: Friday, November 24, 2017 17:55 - CONCLUSION: 1. Cardiomegaly with mild positive fluid balance. Michoacano Dean MD Head CT 11/22/17 190 Signed Impressions: Service Date/Time: Wednesday, November 22, 2017 19:57 - CONCLUSION: 1. No acute abnormality seen. 2. Mild atrophy. Walter White MD Renal Ultrasound 11/22/17 0000 Signed Impressions: Service Date/Time: Wednesday, November 22, 2017 21:58 - CONCLUSION: 1. Moderate bilateral hydronephrosis with left ureter dilated throughout its course. 2. Small amount of bladder debris. 3. Increased renal echogenicity characteristic of medical renal disease. Isidro Landeros MD Objective Remarks GENERAL: This is a well-nourished, well-developed patient, in no apparent distress. CARDIOVASCULAR: Regular rate and regular rhythm without murmurs, gallops, or rubs. RESPIRATORY: Clear to auscultation. Breath sounds equal bilaterally. No wheezes , rales, or rhonchi. GASTROINTESTINAL: Abdomen soft, non-tender, nondistended. Normal, active bowel sounds MUSCULOSKELETAL: Extremities without clubbing, cyanosis, or edema. NEURO: Alert & Oriented x4 to person, place, time, situation. Moves all ext x4 Medications and IVs Inpatient Medications Acetaminophen/ Hydrocodone Bitart (Paradise 5-325 Mg) 1 tab Q4H PRN PO PAIN SCALE 1 TO 10 Last administered on 11/27/17 17:01; Start 11/26/17 at 19:45 Albuterol Sulfate (Albuterol Neb) 2.5 mg Q2HR NEB PRN NEB WHEEZING; Start 11/24 at 16:45 Albuterol/ Ipratropium (Duoneb Neb) 1 ampule Q4HR NEB INH Last administered on 11/29/17 03:20; Start 11/26/17 at 20:00 Amlodipine Besylate (Norvasc) 5 mg DAILY OG-TUBE Last administered on 08:19; Start 11/24/17 at 20:15 Baclofen (Lioresal) 5 mg Q12H PO Last administered on 11/29/17 08:19; Start at 20:00 Calcium Gluconate (Calcium Gluconate Inj) 1 gm ONCE ONCE SLOW IVP Last administered on 11/22/17at 21:41; Start 11/22/17 at 20:30; Stop 11/22/17 at 20:31 ; Status DC Calcium Gluconate 2 gm/Sodium Chloride 120 ml @ 120 mls/hr ONCE ONCE IV Last administered on 11/23/17at 21:59; Start 11/23/17 at 21:30; Stop 11/23/17 at 22:29 ; Status DC Chlorhexidine Gluconate (Chlorhexidine 2% Cloth) 3 pack UNSCH PRN TOP HYGIENIC CARE; Start 11/22/17 at 21:45 Clopidogrel Bisulfate (Plavix) 75 mg DAILY PO Last administered on 11/29/17 08 :19; Start 11/23/17 at 09:00 Dextrose (D50w (Syr) Inj) 25 ml ONCE ONCE IV PUSH Last administered on at 22:04; Start 11/23/17 at 21:30; Stop 11/23/17 at 21:31; Status DC Dextrose (D50w (Vial) Inj) 50 ml ONCE ONCE IV PUSH Last administered on at 10:26; Start 11/23/17 at 09:30; Stop 11/23/17 at 09:31; Status DC Duloxetine HCl (Cymbalta Dr) 40 mg DAILY PO Last administered on 11/29/17 08: 18; Start 11/27/17 at 09:00 Famotidine (Pepcid Inj) 10 mg Q12H IV PUSH Last administered on 11/26/17 23:28 ; Start 11/23/17 at 11:00; Stop 11/27/17 at 11:36; Status DC Famotidine (Pepcid) 10 mg BID PO Last administered on 11/29/17 08:19; Start at 12:00 Fluticasone/ Vilanterol (Breo Ellipta 100-25 Inh) 1 puff DAILY INH Last administered on 11/28/17at 08:56; Start 11/23/17 at 09:00 Furosemide (Lasix Inj) 20 mg ONCE ONCE IV PUSH Last administered on 11/26/17 20:26; Start 11/26/17 at 19:30; Stop 11/26/17 at 19:31; Status DC Gabapentin (Neurontin) 100 mg DAILY PO Last administered on 11/29/17 08:18; Start 11/26/17 at 19:45 Heparin Sodium (Porcine) (Heparin Inj) 5,000 units Q12H SQ Last administered on 11/28/17at 20:00; Start 11/22/17 at 22:00 Insulin Aspart (NovoLOG SUPPLEMENTAL SCALE) 1 Q4H SQ ; Start 11/22/17 at 23:00 Insulin Human Regular (NovoLIN R INJ) 10 units ONCE ONCE IV PUSH Last administered on 11/23/17at 22:10; Start 11/23/17 at 21:30; Stop 11/23/17 at 21:38 ; Status DC Labetalol HCl (Trandate Inj) 10 mg Q4H PRN IV PUSH SBP >165 Last administered on 11/25/17at 21:29; Start 11/24/17 at 12:15 Melatonin (Melatonin) 5 mg ONCE ONCE PO Last administered on 11/27/17at 21:58; Start 11/27/17 at 21:45; Stop 11/27/17 at 21:46; Status DC Miscellaneous (Pill Splitter) 1 ea UNSCH PRN OTHER SEE LABEL COMMENTS; Start at 20:00 Miscellaneous Information ([facility]) 1 Q361D XX Last administered on 11/22/17at 21:45; Start 11/22/17 at 21:45 Pharmacy Profile Note 0 ml @ 0 mls/hr UNSCH OTHER ; Start 11/27/17 at 09:00 Piperacillin Sod/ Tazobactam Sod 50 ml @ 100 mls/hr Q6H IV Last administered on 11/27/17at 11:57; Start 11/26/17 at 11:00; Stop 11/27/17 at 15:20; Status DC Sodium Polystyrene Sulfonate (Kayexalate Liq) 15 gm ONCE ONCE PO Last administered on 11/23/17at 22:03; Start 11/23/17 at 21:30; Stop 11/23/17 at 21:38 ; Status DC Sodium Bicarbonate (Sodium Bicarbonate 8.4% Inj) 50 meq ONCE ONCE IV PUSH Last administered on 11/23/17at 22:04; Start 11/23/17 at 21:30; Stop 11/23/17 at 21:38; Status DC Sodium Chloride 1,000 ml @ 42 mls/hr [id number] IV Last administered on at 17:32; Start 11/28/17 at 16:45 Sodium Chloride (NS Flush) 2 ml UNSCH PRN IV FLUSH FLUSH AFTER USING IV ACCESS Last administered on 11/27/17at 09:51; Start 11/22/17 at 19:15 Tamsulosin HCl (Flomax) 0.4 mg HS PO Last administered on 11/28/17at 20:01; Start 11/23/17 at 21:00 Vancomycin HCl 1000 mg/Sodium Chloride 250 ml @ 250 mls/hr ONCE ONCE IV Last administered on 11/22/17at 22:37; Start 11/22/17 at 22:00; Stop 11/22/17 at 22:59 ; Status DC Vancomycin HCl 2000 mg/Sodium Chloride 520 ml @ 250 mls/hr ONCE ONCE IV Last administered on 11/27/17at 09:54; Start 11/27/17 at 10:00; Stop 11/27/17 at 12:04 ; Status DC A/P Problem List: (1) Altered mental status ICD Code: R41.82 - Altered mental status, unspecified Status: Acute (2) UTI (urinary tract infection) ICD Code: N39.0 - Urinary tract infection, site not specified Status: Acute (3) Acute on chronic renal failure ICD Code: N17.9 - Acute kidney failure, unspecified; N18.9 - Chronic kidney disease, unspecified Status: Acute (4) Hyperkalemia ICD Code: E87.5 - Hyperkalemia Status: Resolved (5) Acute metabolic encephalopathy ICD Code: G93.41 - Metabolic encephalopathy Status: Resolved (6) HTN (hypertension) ICD Code: I10 - Essential (primary) hypertension Status: Acute (7) Obesity ICD Code: E66.9 - Obesity, unspecified Status: Acute (8) CHF (congestive heart failure) ICD Code: I50.9 - Heart failure, unspecified Status: Acute (9) CAD (coronary artery disease) ICD Code: I25.10 - Atherosclerotic heart disease of [place] coronary artery without angina pectoris Status: Acute Assessment and Plan Acute metabolic encephalopathy, resolved -Altered mentation was felt to be secondary to sepsis, now back to baseline. - CT brain 11/22 - negative -ABG did not reveal elevated PCO2, ammonia level normal. -EEG triphasic waves c/w severe diffuse encephalopathy. Could increase risk for seizure. No clinical seizure activity and mental status now at baseline. Consider neurology consult for anticonvulsant if there is clinical seizure or if mental status worsens. - Resumed gabapentin 100 mg but changed to once daily in view of renal function and recent mental status issues. -Resumed baclofen but dose adjust to 5 mg q12 based on renal function. -Resumed cymbalta -Paradise prn. History of COPD -Nasal cannula oxygen to keep SaO2 >90% -DuoNeb every 4 hours scheduled and as needed. Albuterol q2. -Continue Breo Ellipta History of coronary artery disease History of cardiac arrest Continue Plavix HTN Norvasc 5 mg po daily. Labetalol prn . -Hold lisinopril due to worsening renal failure. h/o Dysphagia - Now able to swallow and diet advanced. - famotidine Acute on chronic kidney disease Acute obstructive uropathy. Hyperkalemia Type 2 diabetes -Monitor BMP, Yang in place. - Continuing flomax 0.4 mg po qhs that he is on chronically. Will need urology followup as outpatient, seen as inpatient but no additional therapy recommended. Yang to remain in place until f/u. -Nephrology Dr. Lima following. -Renal ultrasound shows bilateral hydronephrosis. UTI Severe sepsis MRSA bacteremia -Follow-up on blood and urine culture -IV vancomycin 1 GM x1 11/22 - pharmacy consulted for Vanco dosing. -ID consult appreciated. -echo pending. Patient is reportedly designated full code at correction. He does not have an advanced directive on file at the correction. There is no family contact. There is contact information for a friend named Sarah Pratt who was a neighbor but she states she was never formally designated his healthcare surrogate. She was helping him with grocery shopping and finances when he was living at home. She states he has no family. She states his closest friend who used to take him to doctor appointments was Eran Johnsonmonica (spelling unknown) , . Patient is currently not capacitated for medical decision making and it is unclear who would make medical decisions on his behalf. Palliative care following. Discharge Planning possible discharge within the next one-two days -pending echo/ ID follow-up. Problem Qualifiers (1) Altered mental status: Qualified Codes: R41.82 - Altered mental status, unspecified (2) UTI (urinary tract infection): Qualified Codes: N39.0 - Urinary tract infection, site not specified; R31.9 - Hematuria, unspecified Felipe Gonzalez MD November 29, 2017 09:32
[2017-11-29] MEDS ORDERED: GABA100C4 PO (09:36)
[2017-11-29] MEDS ORDERED: AMLO5 OG-TUBE (09:36)
[2017-11-29] MEDS ORDERED: NORC5TAB PO (09:36)
[2017-11-29 10:35] LABS: ALBUMIN 2.3 GM/DL (3.4-5.0); BICARBONATE 21.2 MEQ/L (21.0-32.0); CALCIUM 8.8 MG/DL (8.5-10.1); CREATININE 3.58 MG/DL (0.60-1.30); PHOSPHORUS 4.9 MG/DL (2.5-4.9)
--- NOTE | 2017-11-29 10:37 | HHI.NPPN ---
Subjective Renal Failure: Chronic, Acute Interval History He is resting. Labs in process, IVF infusing. (Mariza Loya) Objective Data Data Vital Signs Date Time Temp Pulse Resp B/P (MAP) Pulse Ox O2 Delivery O2 Flow Rate FiO2 11/29/17 08:24 97 Room Air 11/29/17 08:00 97.7 92 20 150/67 (94) 97 11/29/17 04:00 Room Air 11/29/17 04:00 97.9 85 20 161/78 (105) 93 11/29/17 00:00 97.8 98 20 166/76 (106) 97 11/29/17 00:00 Room Air 11/28/17 22:16 99 21 11/28/17 20:00 Room Air 11/28/17 20:00 98.3 90 20 181/77 (111) 94 11/28/17 16:32 95 Room Air 11/28/17 16:00 98.3 91 20 149/66 (93) 95 11/28/17 13:56 96 Room Air 11/28/17 12:00 97.9 89 20 169/79 (109) 96 (Mariza Loya) -: 11/27/17 0630 11/28/17 1048 Tubes & Lines: Roman (Mariza Loya) Physical Exam General Appearance: Well Developed, Well Nourished, No Acute Distress, Comfortable, Obese (Mariza Loya) Neck Neck Exam: Neck Supple (Mariza Loya) Pulmonary Resp Exam: Clear Bilaterally, Breath Sounds Equal, Decreased Bases (Mariza Loya) Cardiology CV Exam: Regular, Normal Sinus Rhythm (Mariza Loya) Gastrointestinal/Abdomen GI Exam: Soft, Non-Tender, Bowel Sounds Present (Mariza Loya) Genitourinary Exam: Clear Urine (Mariza Loya) Musculoskeletal MS Exam: Joints Intact, Normal Tone (Mariza Loya) Integumentary Skin Exam: Clear, Warm, Dry, Intact (Mariza Loya) Extremeties Extremities Exam: No Edema, Pedal Pulses Palpable (Mariza Loya) Neurologic Neuro Exam: Alert, Awake, Oriented, Speech Clear, Moving All Extremities (Mariza Loya) Psychiatric Psych Exam: Appropriate Responses (Mariza Loya) Assessment/Plan Discussed Condition With: Patient Problem List: (1) Acute on chronic renal failure ICD Codes: N17.9 - Acute kidney failure, unspecified; N18.9 - Chronic kidney disease, unspecified Status: Acute Plan: He has underlying CKD. This is most likley due to chronic obstructive uropathy. His baseline is difficult to ascertain as he has variable readings. 2.8 (creatinine from a few days ago) was his best reading in the past several months. Yesterday his renal function had declined. Pending results from today Seen by urology. Roman was replaced on admission, to be discharged with it Has follow up appt January 19 at [facility], most likely due to insurance reasons Continue Flomax He is non oliguric PO fluids encouraged Avoid nephrotoxic agents. Continue IVF (2) UTI (urinary tract infection) ICD Codes: N39.0 - Urinary tract infection, site not specified Status: Acute Plan: with sepsis Hx of frequent UTI, culture + MRSA On vancomycin Closely monitor renal function and renal dose when appropriate At discharge will need roman replaced every 30 days. (3) Hyperkalemia ICD Codes: E87.5 - Hyperkalemia Status: Resolved Plan: corrected, monitor (4) Acute metabolic encephalopathy ICD Codes: G93.41 - Metabolic encephalopathy Status: Resolved Plan: most likely due to UTI. Continue to monitor. Improved (5) Sepsis ICD Codes: A41.9 - Sepsis, unspecified organism Plan: Urosepsis See above Echo ordered to rule out endocarditis (Mariaz Loya) Plan patient was seen and examined. His renal function is likely at baseline. Output is more than intake. Continue IVF for another 24 hours. No immediate need for dialysis. (Curt Bal MD) Problem Qualifiers (1) UTI (urinary tract infection): Qualified Codes: N39.0 - Urinary tract infection, site not specified; R31.9 - Hematuria, unspecified Mariza Loya November 29, 2017 10:37 Curt Bal MD November 29, 2017 14:33
[2017-11-29] MEDS: HEPARIN SODIUM - SQ 10,000 UNITS/ML VIAL SQ SCH ×2 (11:56→21:06)
[2017-11-29 12:00] VITALS: BP 131/95; PULSE 85; RESP 20; TEMP 98; O2SAT 95
[2017-11-29 16:00] VITALS: BP 120/68; PULSE 90; RESP 20; TEMP 97.8; O2SAT 97
[2017-11-29] MEDS: SODIUM CHLOR 0.45% 1000 ML INJ 1,000 ML IV SCH (16:34)
--- NOTE | 2017-11-29 17:59 | HHI.IDPN ---
Subjective Subjective Remarks pt is foing OK no new c/o afebrile Antibiotics vancomycin Past Medical History pacer Allergies: Coded Allergies: Influenza Virus Vaccines (Unverified Allergy, Unknown, 02/19/17) cephalexin (Unverified Allergy, Unknown, 02/19/17) levofloxacin (Unverified Allergy, Unknown, 02/19/17) moxifloxacin (Unverified Allergy, Unknown, 02/19/17) Objective . Vital Signs Date Time Temp Pulse Resp B/P (MAP) Pulse Ox O2 Delivery O2 Flow Rate FiO2 11/29/17 17:45 97 Room Air 11/29/17 16:00 97.8 90 20 120/68 (85) 97 11/29/17 13:39 95 Room Air 11/29/17 12:00 98.0 85 20 131/95 (107) 95 11/29/17 08:24 97 Room Air 11/29/17 08:00 97.7 92 20 150/67 (94) 97 11/29/17 04:00 Room Air 11/29/17 04:00 97.9 85 20 161/78 (105) 93 11/29/17 00:00 97.8 98 20 166/76 (106) 97 11/29/17 00:00 Room Air 11/28/17 22:16 99 21 11/28/17 20:00 Room Air 11/28/17 20:00 98.3 90 20 181/77 (111) 94 . Laboratory Tests Test 11/28/17 10:48 11/29/17 09:22 Blood Urea Nitrogen 31 MG/DL 34 MG/DL Creatinine 3.41 MG/DL 3.58 MG/DL Random Glucose 89 MG/DL 83 MG/DL Albumin 2.1 GM/DL 2.3 GM/DL Calcium Level 8.3 MG/DL 8.8 MG/DL Phosphorus Level 4.6 MG/DL 4.9 MG/DL Sodium Level 145 MEQ/L 144 MEQ/L Potassium Level 4.0 MEQ/L 4.1 MEQ/L Chloride Level 112 MEQ/L 113 MEQ/L Carbon Dioxide Level 22.4 MEQ/L 21.2 MEQ/L Anion Gap 11 MEQ/L 10 MEQ/L Estimat Glomerular Filtration Rate 18 ML/MIN 17 ML/MIN Imaging Last Impressions Chest X-Ray 11/24/17 0000 Signed Impressions: Service Date/Time: Friday, November 24, 2017 17:55 - CONCLUSION: 1. Cardiomegaly with mild positive fluid balance. Michoacano Dean MD Head CT 11/22/17 1907 Signed Impressions: Service Date/Time: Wednesday, November 22, 2017 19:57 - CONCLUSION: 1. No acute abnormality seen. 2. Mild atrophy. Walter White MD Renal Ultrasound 11/22/17 0000 Signed Impressions: Service Date/Time: Wednesday, November 22, 2017 21:58 - CONCLUSION: 1. Moderate bilateral hydronephrosis with left ureter dilated throughout its course. 2. Small amount of bladder debris. 3. Increased renal echogenicity characteristic of medical renal disease. Isidro Landeros MD Physical Exam ONSTITUTIONAL/GENERAL: This is an adequately nourished patient, in no apparent distress. sitting in bed comfortabl;e TUBES/LINES/DRAINS: SKIN: No jaundice, rashes, or lesions. Skin temperature appropriate. Not diaphoretic. CARDIOVASCULAR: Regular rate and rhythm without murmurs, gallops, or rubs. No JVD. Peripheral pulses symmetric. Pacer in place R chest - OK RESPIRATORY/CHEST: Symmetric, unlabored respirations. Clear to auscultation. Breath sounds equal bilaterally. No wheezes, rales, or rhonchi. GASTROINTESTINAL: Abdomen soft, non-tender, nondistended. No hepato-splenomegaly , or palpable masses. No guarding. Bowel sounds present. GENITOURINARY: Without palpable bladder distension. Roman catheter in place with clear yellow urine MUSCULOSKELETAL: Extremities without clubbing, cyanosis, or edema. No joint tenderness or effusion noted. No calf tenderness. No mottling or clubbing. Well healed R hallux amputation site NEUROLOGICAL: Awake and alert. Motor and sensory grossly within normal limits. Follows commands. Clear speech, but obvoois memory lapses. Unable to provide history . Moves all extremities. PSYCHIATRIC: No obvious anxiety/depression. no apparent hallucinations or other psychotic thought process. Assessment & Plan Remarks Low grade MRSA bacteremia - pt has pacer Sepsis UTI, MRSA Obstructive uropathy - resolved with roman ARF - resolved DM cont vancomycin x 2 weeks from 1st neg bl clx fu 2 D echo OK to dc with IV abx if neg BC repeat BC 2 weeks after abx completed dw Fanny Heard MD November 29, 2017 17:59
[2017-11-29 20:00] VITALS: BP 159/74; PULSE 89; RESP 16; TEMP 97.7; O2SAT 94
[2017-11-29] MEDS: TAMSULOSIN HCL 0.4 MG CAP PO SCH (21:06)
[2017-11-30] VITALS: BP 170/74; PULSE 85; RESP 20; TEMP 97.3; O2SAT 95
[2017-11-30 04:00] VITALS: BP 159/70; PULSE 86; RESP 20; TEMP 98; O2SAT 93
[2017-11-30] MEDS: CHLORHEXIDINE GLUCONATE 2 % 1 PACK (2 CLOTHS) TOP SCH (04:00)
[2017-11-30] MEDS: RESP: ALBUTEROL 2.5 MG/IPRATROPIUM 0.5 MG NEB (SCH) INH ×5 (04:00→16:00)
[2017-11-30 08:00] VITALS: BP 154/69; PULSE 89; RESP 20; TEMP 97.3; O2SAT 91
[2017-11-30] MEDS: DULoxetine HCl DR 20 MG CAP PO SCH (09:20)
[2017-11-30] MEDS: GABAPENTIN 100 MG CAP PO SCH (09:21)
[2017-11-30] MEDS: FAMOTIDINE 20 MG TAB PO SCH ×2 (09:21→21:15)
[2017-11-30] MEDS: HEPARIN SODIUM - SQ 10,000 UNITS/ML VIAL SQ SCH ×2 (09:21→21:15)
[2017-11-30] MEDS: BACLOFEN 10 MG TAB PO SCH ×2 (09:21→21:15)
[2017-11-30] MEDS: CLOPIDOGREL 75 MG TAB PO SCH (09:21)
[2017-11-30] MEDS: amLODIPine BESYLATE 5 MG TAB OG-TUBE SCH (09:21)
[2017-11-30] MEDS: FLUTICASONE 100 MCG/VILANTEROL 25 MCG INHALER INH SCH (09:23)
[2017-11-30] MEDS ORDERED: VANCOMYCIN 1,500 MG/NS 500 ML IV ONE ×2 (11:00)
--- NOTE | 2017-11-30 11:00 | HHI.PR ---
Subjective Remarks in no acute distress. no fever. no pain. no new complaints. Objective Vitals Vital Signs Date Time Temp Pulse Resp B/P (MAP) Pulse Ox O2 Delivery O2 Flow Rate FiO2 11/30/17 08:00 97.3 89 20 154/69 (97) 91 11/30/17 04:00 98.0 86 20 159/70 (99) 93 11/30/17 00:00 97.3 85 20 170/74 (106) 95 11/29/17 20:45 Room Air 21 11/29/17 20:00 97.7 89 16 159/74 (102) 94 11/29/17 17:45 97 Room Air 11/29/17 16:00 97.8 90 20 120/68 (85) 97 11/29/17 13:39 95 Room Air 11/29/17 12:00 98.0 85 20 131/95 (107) 95 I/O 11/29/17 11/29/17 11/29/17 11/30/17 11/30/17 11/30/17 07:00 15:00 23:00 07:00 15:00 23:00 Intake Total 641 ml 480 ml 480 ml Output Total 1200 ml 1050 ml 1450 ml Balance -559 ml -570 ml -970 ml Intake Oral 120 ml 480 ml 480 ml IV Total 521 ml Output Urine Total 1200 ml 1050 ml 1450 ml # Bowel Movements 0 Result Diagram: 11/27/17 0630 11/29/17 0922 Imaging Last Impressions Chest X-Ray 11/24/17 0000 Signed Impressions: Service Date/Time: Friday, November 24, 2017 17:55 - CONCLUSION: 1. Cardiomegaly with mild positive fluid balance. Michoacano Dean MD Head CT 11/22/17 1907 Signed Impressions: Service Date/Time: Wednesday, November 22, 2017 19:57 - CONCLUSION: 1. No acute abnormality seen. 2. Mild atrophy. Waletr White MD Renal Ultrasound 11/22/17 0000 Signed Impressions: Service Date/Time: Wednesday, November 22, 2017 21:58 - CONCLUSION: 1. Moderate bilateral hydronephrosis with left ureter dilated throughout its course. 2. Small amount of bladder debris. 3. Increased renal echogenicity characteristic of medical renal disease. Isidro Landeros MD Objective Remarks GENERAL: This is a well-nourished, well-developed patient, in no apparent distress. CARDIOVASCULAR: Regular rate and regular rhythm without murmurs, gallops, or rubs. RESPIRATORY: Clear to auscultation. Breath sounds equal bilaterally. No wheezes , rales, or rhonchi. GASTROINTESTINAL: Abdomen soft, non-tender, nondistended. Normal, active bowel sounds MUSCULOSKELETAL: Extremities without clubbing, cyanosis, or edema. NEURO: Alert & Oriented x4 to person, place, time, situation. Moves all ext x4 Medications and IVs Inpatient Medications Acetaminophen/ Hydrocodone Bitart ([place] 5-325 Mg) 1 tab Q4H PRN PO PAIN SCALE 1 TO 10 Last administered on 11/27/17 17:01; Start 11/26/17 at 19:45 Albuterol Sulfate (Albuterol Neb) 2.5 mg Q2HR NEB PRN NEB WHEEZING; Start 11/24 at 16:45 Albuterol/ Ipratropium (Duoneb Neb) 1 ampule Q4HR NEB INH Last administered on 11/29/17at 03:20; Start 11/26/17 at 20:00 Amlodipine Besylate (Norvasc) 5 mg DAILY OG-TUBE Last administered on 09:21; Start 11/24/17 at 20:15 Baclofen (Lioresal) 5 mg Q12H PO Last administered on 11/30/17 09:21; Start at 20:00 Calcium Gluconate (Calcium Gluconate Inj) 1 gm ONCE ONCE SLOW IVP Last administered on 11/22/17at 21:41; Start 11/22/17 at 20:30; Stop 11/22/17 at 20:31 ; Status DC Calcium Gluconate 2 gm/Sodium Chloride 120 ml @ 120 mls/hr ONCE ONCE IV Last administered on 11/23/17at 21:59; Start 11/23/17 at 21:30; Stop 11/23/17 at 22:29 ; Status DC Chlorhexidine Gluconate (Chlorhexidine 2% Cloth) 3 pack UNSCH PRN TOP HYGIENIC CARE; Start 11/22/17 at 21:45 Clopidogrel Bisulfate (Plavix) 75 mg DAILY PO Last administered on 11/30/17at 09 :21; Start 11/23/17 at 09:00 Dextrose (D50w (Syr) Inj) 25 ml ONCE ONCE IV PUSH Last administered on at 22:04; Start 11/23/17 at 21:30; Stop 11/23/17 at 21:31; Status DC Dextrose (D50w (Vial) Inj) 50 ml ONCE ONCE IV PUSH Last administered on at 10:26; Start 11/23/17 at 09:30; Stop 11/23/17 at 09:31; Status DC Duloxetine HCl (Cymbalta Dr) 40 mg DAILY PO Last administered on 11/30/17 09: 20; Start 11/27/17 at 09:00 Famotidine (Pepcid Inj) 10 mg Q12H IV PUSH Last administered on 11/26/17 23:28 ; Start 11/23/17 at 11:00; Stop 11/27/17 at 11:36; Status DC Famotidine (Pepcid) 10 mg BID PO Last administered on 11/30/17at 09:21; Start at 12:00 Fluticasone/ Vilanterol (Breo Ellipta 100-25 Inh) 1 puff DAILY INH Last administered on 11/30/17 09:23; Start 11/23/17 at 09:00 Furosemide (Lasix Inj) 20 mg ONCE ONCE IV PUSH Last administered on 11/26/17at 20:26; Start 11/26/17 at 19:30; Stop 11/26/17 at 19:31; Status DC Gabapentin (Neurontin) 100 mg DAILY PO Last administered on 11/30/17at 09:21; Start 11/26/17 at 19:45 Heparin Sodium (Porcine) (Heparin Inj) 5,000 units Q12H SQ Last administered on 11/30/17at 09:21; Start 11/22/17 at 22:00 Insulin Aspart (NovoLOG SUPPLEMENTAL SCALE) 1 Q4H SQ ; Start 11/22/17 at 23:00; Stop 11/29/17 at 11:39; Status DC Insulin Human Regular (NovoLIN R INJ) 10 units ONCE ONCE IV PUSH Last administered on 11/23/17at 22:10; Start 11/23/17 at 21:30; Stop 11/23/17 at 21:38 ; Status DC Labetalol HCl (Trandate Inj) 10 mg Q4H PRN IV PUSH SBP >165 Last administered on 11/25/17at 21:29; Start 11/24/17 at 12:15 Melatonin (Melatonin) 5 mg ONCE ONCE PO Last administered on 11/27/17at 21:58; Start 11/27/17 at 21:45; Stop 11/27/17 at 21:46; Status DC Miscellaneous (Pill Splitter) 1 ea UNSCH PRN OTHER SEE LABEL COMMENTS Last administered on 11/29/17at 21:06; Start 11/26/17 at 20:00 Miscellaneous Information ([facility] Nursing Information) 1 [id number] XX Last administered on 11/22/17at 21:45; Start 11/22/17 at 21:45 Pharmacy Profile Note 0 ml @ 0 mls/hr UNSCH OTHER ; Start 11/27/17 at 09:00 Piperacillin Sod/ Tazobactam Sod 50 ml @ 100 mls/hr Q6H IV Last administered on 11/27/17at 11:57; Start 11/26/17 at 11:00; Stop 11/27/17 at 15:20; Status DC Sodium Polystyrene Sulfonate (Kayexalate Liq) 15 gm ONCE ONCE PO Last administered on 11/23/17at 22:03; Start 11/23/17 at 21:30; Stop 11/23/17 at 21:38 ; Status DC Sodium Bicarbonate (Sodium Bicarbonate 8.4% Inj) 50 meq ONCE ONCE IV PUSH Last administered on 11/23/17at 22:04; Start 11/23/17 at 21:30; Stop 11/23/17 at 21:38; Status DC Sodium Chloride 1,000 ml @ 42 mls/hr [id number] IV Last administered on at 16:34; Start 11/28/17 at 16:45 Sodium Chloride (NS Flush) 2 ml UNSCH PRN IV FLUSH FLUSH AFTER USING IV ACCESS Last administered on 11/27/17at 09:51; Start 11/22/17 at 19:15 Tamsulosin HCl (Flomax) 0.4 mg HS PO Last administered on 11/29/17at 21:06; Start 11/23/17 at 21:00 Vancomycin HCl 1000 mg/Sodium Chloride 250 ml @ 250 mls/hr ONCE ONCE IV Last administered on 11/22/17at 22:37; Start 11/22/17 at 22:00; Stop 11/22/17 at 22:59 ; Status DC Vancomycin HCl 1500 mg/Sodium Chloride 515 ml @ 257.5 mls/ hr ONCE ONCE IV ; Start 11/30/17 at 11:00; Stop 11/30/17 at 12:59 Vancomycin HCl 2000 mg/Sodium Chloride 520 ml @ 250 mls/hr ONCE ONCE IV Last administered on 11/27/17at 09:54; Start 11/27/17 at 10:00; Stop 11/27/17 at 12:04 ; Status DC A/P Problem List: (1) Altered mental status ICD Code: R41.82 - Altered mental status, unspecified Status: Acute (2) UTI (urinary tract infection) ICD Code: N39.0 - Urinary tract infection, site not specified Status: Acute (3) Acute on chronic renal failure ICD Code: N17.9 - Acute kidney failure, unspecified; N18.9 - Chronic kidney disease, unspecified Status: Acute (4) Hyperkalemia ICD Code: E87.5 - Hyperkalemia Status: Resolved (5) Acute metabolic encephalopathy ICD Code: G93.41 - Metabolic encephalopathy Status: Resolved (6) HTN (hypertension) ICD Code: I10 - Essential (primary) hypertension Status: Acute (7) Obesity ICD Code: E66.9 - Obesity, unspecified Status: Acute (8) CHF (congestive heart failure) ICD Code: I50.9 - Heart failure, unspecified Status: Acute (9) CAD (coronary artery disease) ICD Code: I25.10 - Atherosclerotic heart disease of [place] coronary artery without angina pectoris Status: Acute Assessment and Plan Acute metabolic encephalopathy, resolved -Altered mentation was felt to be secondary to sepsis, now back to baseline. - CT brain 11/22 - negative -ABG did not reveal elevated PCO2, ammonia level normal. -EEG triphasic waves c/w severe diffuse encephalopathy. Could increase risk for seizure. No clinical seizure activity and mental status now at baseline. Consider neurology consult for anticonvulsant if there is clinical seizure or if mental status worsens. - Resumed gabapentin 100 mg but changed to once daily in view of renal function and recent mental status issues. -Resumed baclofen but dose adjust to 5 mg q12 based on renal function. -Resumed cymbalta -[place] prn. History of COPD -Nasal cannula oxygen to keep SaO2 >90% -DuoNeb every 4 hours scheduled and as needed. Albuterol q2. -Continue Breo Ellipta History of coronary artery disease History of cardiac arrest Continue Plavix HTN Norvasc 5 mg po daily. Labetalol prn . -Hold lisinopril due to worsening renal failure. h/o Dysphagia - Now able to swallow and diet advanced. - famotidine Acute on chronic kidney disease Acute obstructive uropathy. Hyperkalemia Type 2 diabetes -Monitor BMP, Yang in place. - Continuing flomax 0.4 mg po qhs that he is on chronically. Will need urology followup as outpatient, seen as inpatient but no additional therapy recommended. Yang to remain in place until f/u. -Nephrology Dr. Lima following. -Renal ultrasound shows bilateral hydronephrosis. UTI Severe sepsis MRSA bacteremia -Follow-up on blood and urine culture -IV vancomycin 1 GM x1 11/22 - pharmacy consulted for Vanco dosing. -ID f/u appreciated; needs Vanco for two weeks from the first negative blood culture. -echo pending. Patient is reportedly designated full code at shelter. He does not have an advanced directive on file at the shelter. There is no family contact. There is contact information for a friend named Sarah Pratt who was a neighbor but she states she was never formally designated his healthcare surrogate. She was helping him with grocery shopping and finances when he was living at home. She states he has no family. She states his closest friend who used to take him to doctor appointments was Eran Vance (spelling unknown) , . Patient is currently not capacitated for medical decision making and it is unclear who would make medical decisions on his behalf. Palliative care following. Discharge Planning possible discharge within the next one-two days -pending echo. d/w . Problem Qualifiers (1) Altered mental status: Qualified Codes: R41.82 - Altered mental status, unspecified (2) UTI (urinary tract infection): Qualified Codes: N39.0 - Urinary tract infection, site not specified; R31.9 - Hematuria, unspecified Felipe Gonzalez MD November 30, 2017 11:00
[2017-11-30 12:00] VITALS: BP 141/73; PULSE 81; RESP 20; TEMP 97.7; O2SAT 91
--- NOTE | 2017-11-30 15:33 | HHI.NPPN ---
Subjective Renal Failure: Chronic, Acute Objective Data Data Vital Signs Date Time Temp Pulse Resp B/P (MAP) Pulse Ox O2 Delivery O2 Flow Rate FiO2 11/30/17 12:00 97.7 81 20 141/73 (95) 91 11/30/17 08:30 Room Air 11/30/17 08:00 97.3 89 20 154/69 (97) 91 11/30/17 04:00 98.0 86 20 159/70 (99) 93 11/30/17 00:00 97.3 85 20 170/74 (106) 95 11/29/17 20:45 Room Air 21 11/29/17 20:00 97.7 89 16 159/74 (102) 94 11/29/17 17:45 97 Room Air 11/29/17 16:00 97.8 90 20 120/68 (85) 97 -: 11/27/17 0630 11/29/17 0922 Tubes & Lines: Roman Physical Exam General Appearance: Well Developed, Well Nourished, No Acute Distress, Comfortable, Obese Neck Neck Exam: Neck Supple Pulmonary Resp Exam: Clear Bilaterally, Breath Sounds Equal, Decreased Bases Cardiology CV Exam: Regular, Normal Sinus Rhythm Gastrointestinal/Abdomen GI Exam: Soft, Non-Tender, Bowel Sounds Present Genitourinary Exam: Clear Urine Musculoskeletal MS Exam: Joints Intact, Normal Tone Integumentary Skin Exam: Clear, Warm, Dry, Intact Extremeties Extremities Exam: No Edema, Pedal Pulses Palpable Neurologic Neuro Exam: Alert, Awake, Oriented, Speech Clear, Moving All Extremities Psychiatric Psych Exam: Appropriate Responses Assessment/Plan Discussed Condition With: Patient Problem List: (1) Acute on chronic renal failure ICD Codes: N17.9 - Acute kidney failure, unspecified; N18.9 - Chronic kidney disease, unspecified Status: Acute Plan: He has underlying CKD. This is most likley due to chronic obstructive uropathy. His baseline is difficult to ascertain as he has variable readings. 2.8 (creatinine from a few days ago) was his best reading in the past several months. Yesterday his renal function had declined. Pending results from today Seen by urology. Roman was replaced on admission, to be discharged with it Has follow up appt January 19 at [place], most likely due to insurance reasons Continue Flomax Cr increase IVF adjusted to 83 cc/hr (2) UTI (urinary tract infection) ICD Codes: N39.0 - Urinary tract infection, site not specified Status: Acute Plan: with sepsis Hx of frequent UTI, culture + MRSA On vancomycin Closely monitor renal function and renal dose when appropriate At discharge will need roman replaced every 30 days. (3) Hyperkalemia ICD Codes: E87.5 - Hyperkalemia Status: Resolved Plan: corrected, monitor (4) Acute metabolic encephalopathy ICD Codes: G93.41 - Metabolic encephalopathy Status: Resolved Plan: most likely due to UTI. Continue to monitor. Improved (5) Sepsis ICD Codes: A41.9 - Sepsis, unspecified organism Plan: Urosepsis See above Echo ordered to rule out endocarditis Problem Qualifiers (1) UTI (urinary tract infection): Qualified Codes: N39.0 - Urinary tract infection, site not specified; R31.9 - Hematuria, unspecified aTylor Gold MD November 30, 2017 15:33
[2017-11-30 16:00] VITALS: BP 163/69; PULSE 76; RESP 20; TEMP 97.1; O2SAT 91
[2017-11-30] MEDS: SODIUM CHLOR 0.45% 1000 ML INJ 1,000 ML IV SCH ×2 (16:02→21:13)
[2017-11-30 20:00] VITALS: BP 150/65; PULSE 87; RESP 19; TEMP 97.8; O2SAT 93
[2017-11-30] MEDS: TAMSULOSIN HCL 0.4 MG CAP PO SCH (21:15)
[2017-12-01] VITALS: BP 150/67; PULSE 79; RESP 17; TEMP 97.9; O2SAT 99
[2017-12-01] MEDS: CHLORHEXIDINE GLUCONATE 2 % 1 PACK (2 CLOTHS) TOP SCH (03:17)
[2017-12-01 04:00] VITALS: BP 162/72; PULSE 67; RESP 19; TEMP 97.4; O2SAT 100
[2017-12-01 08:08] LABS: BICARBONATE 21.6 MEQ/L (21.0-32.0); CALCIUM 8.5 MG/DL (8.5-10.1); CREATININE 3.48 MG/DL (0.60-1.30)
[2017-12-01 08:35] VITALS: BP 171/71; PULSE 79; RESP 20; TEMP 97.5; O2SAT 99
[2017-12-01] MEDS: amLODIPine BESYLATE 5 MG TAB OG-TUBE SCH (08:40)
[2017-12-01] MEDS: GABAPENTIN 100 MG CAP PO SCH (08:40)
[2017-12-01] MEDS: DULoxetine HCl DR 20 MG CAP PO SCH (08:40)
[2017-12-01] MEDS: FAMOTIDINE 20 MG TAB PO SCH ×2 (08:40→20:42)
[2017-12-01] MEDS: CLOPIDOGREL 75 MG TAB PO SCH (08:40)
[2017-12-01] MEDS: BACLOFEN 10 MG TAB PO SCH ×2 (08:40→20:43)
[2017-12-01] MEDS: HEPARIN SODIUM - SQ 10,000 UNITS/ML VIAL SQ SCH ×2 (08:41→20:43)
[2017-12-01] MEDS: FLUTICASONE 100 MCG/VILANTEROL 25 MCG INHALER INH SCH (08:41)
--- NOTE | 2017-12-01 11:01 | HHI.PR ---
Subjective Remarks in no acute distress. has mild sob and wheezing. no fever. denies pain. d/w the RN. Objective Vitals Vital Signs Date Time Temp Pulse Resp B/P (MAP) Pulse Ox O2 Delivery O2 Flow Rate FiO2 12/01/17 04:00 97.4 67 19 162/72 (102) 100 12/01/17 04:00 Nasal Cannula 2.00 12/01/17 00:00 97.9 79 17 150/67 (94) 99 12/01/17 00:00 Nasal Cannula 2.00 11/30/17 21:15 Nasal Cannula 2.00 11/30/17 20:00 97.8 87 19 150/65 (93) 93 11/30/17 18:31 Room Air 11/30/17 16:00 97.1 76 20 163/69 (100) 91 11/30/17 12:00 97.7 81 20 141/73 (95) 91 11/30/17 12:00 Room Air I/O 11/30/17 11/30/17 11/30/17 12/01/17 12/01/17 12/01/17 07:00 15:00 23:00 07:00 15:00 23:00 Intake Total 480 ml 1360 ml Output Total 1450 ml 650 ml 950 ml Balance -970 ml 710 ml -950 ml Intake Oral 480 ml 360 ml IV Total 1000 ml Output Urine Total 1450 ml 650 ml 950 ml # Bowel Movements 0 Result Diagram: 11/27/17 0630 12/01/17 0723 Imaging Last Impressions Chest X-Ray 11/24/17 0000 Signed Impressions: Service Date/Time: Friday, November 24, 2017 17:55 - CONCLUSION: 1. Cardiomegaly with mild positive fluid balance. Michoacano Dean MD Head CT 11/22/17 1907 Signed Impressions: Service Date/Time: Wednesday, November 22, 2017 19:57 - CONCLUSION: 1. No acute abnormality seen. 2. Mild atrophy. Walter White MD Renal Ultrasound 11/22/17 0000 Signed Impressions: Service Date/Time: Wednesday, November 22, 2017 21:58 - CONCLUSION: 1. Moderate bilateral hydronephrosis with left ureter dilated throughout its course. 2. Small amount of bladder debris. 3. Increased renal echogenicity characteristic of medical renal disease. Isidro Landeros MD Objective Remarks GENERAL: This is a well-nourished, well-developed patient, in no apparent distress. CARDIOVASCULAR: Regular rate and regular rhythm without murmurs, gallops, or rubs. RESPIRATORY: Clear to auscultation. Breath sounds equal bilaterally. No wheezes , rales, or rhonchi. GASTROINTESTINAL: Abdomen soft, non-tender, nondistended. Normal, active bowel sounds MUSCULOSKELETAL: Extremities without clubbing, cyanosis, or edema. NEURO: Alert & Oriented x4 to person, place, time, situation. Moves all ext x4 Medications and IVs Inpatient Medications Acetaminophen/ Hydrocodone Bitart ([place] 5-325 Mg) 1 tab Q4H PRN PO PAIN SCALE 1 TO 10 Last administered on 11/27/17at 17:01; Start 11/26/17 at 19:45 Albuterol Sulfate (Albuterol Neb) 2.5 mg Q2HR NEB PRN NEB WHEEZING; Start 11/24 at 16:45 Albuterol/ Ipratropium (Duoneb Neb) 1 ampule Q4HR NEB INH Last administered on 11/29/17at 03:20; Start 11/26/17 at 20:00; Stop 11/30/17 at 19:59; Status DC Amlodipine Besylate (Norvasc) 5 mg DAILY OG-TUBE Last administered on at 08:40; Start 11/24/17 at 20:15 Baclofen (Lioresal) 5 mg Q12H PO Last administered on 12/01/17at 08:40; Start at 20:00 Calcium Gluconate (Calcium Gluconate Inj) 1 gm ONCE ONCE SLOW IVP Last administered on 11/22/17at 21:41; Start 11/22/17 at 20:30; Stop 11/22/17 at 20:31 ; Status DC Calcium Gluconate 2 gm/Sodium Chloride 120 ml @ 120 mls/hr ONCE ONCE IV Last administered on 11/23/17at 21:59; Start 11/23/17 at 21:30; Stop 11/23/17 at 22:29 ; Status DC Chlorhexidine Gluconate (Chlorhexidine 2% Cloth) 3 pack UNSCH PRN TOP HYGIENIC CARE; Start 11/22/17 at 21:45 Clopidogrel Bisulfate (Plavix) 75 mg DAILY PO Last administered on 12/01/17 08 :40; Start 11/23/17 at 09:00 Dextrose (D50w (Syr) Inj) 25 ml ONCE ONCE IV PUSH Last administered on 22:04; Start 11/23/17 at 21:30; Stop 11/23/17 at 21:31; Status DC Dextrose (D50w (Vial) Inj) 50 ml ONCE ONCE IV PUSH Last administered on at 10:26; Start 11/23/17 at 09:30; Stop 11/23/17 at 09:31; Status DC Duloxetine HCl (Cymbalta Dr) 40 mg DAILY PO Last administered on 12/01/17 08: 40; Start 11/27/17 at 09:00 Famotidine (Pepcid Inj) 10 mg Q12H IV PUSH Last administered on 11/26/17 23:28 ; Start 11/23/17 at 11:00; Stop 11/27/17 at 11:36; Status DC Famotidine (Pepcid) 10 mg BID PO Last administered on 12/01/17 08:40; Start at 12:00 Fluticasone/ Vilanterol (Breo Ellipta 100-25 Inh) 1 puff DAILY INH Last administered on 12/01/17 08:41; Start 11/23/17 at 09:00 Furosemide (Lasix Inj) 20 mg ONCE ONCE IV PUSH Last administered on 11/26/17 20:26; Start 11/26/17 at 19:30; Stop 11/26/17 at 19:31; Status DC Gabapentin (Neurontin) 100 mg DAILY PO Last administered on 12/01/17 08:40; Start 11/26/17 at 19:45 Heparin Sodium (Porcine) (Heparin Inj) 5,000 units Q12H SQ Last administered on 12/01/17 08:41; Start 11/22/17 at 22:00 Insulin Aspart (NovoLOG SUPPLEMENTAL SCALE) 1 Q4H SQ ; Start 11/22/17 at 23:00; Stop 11/29/17 at 11:39; Status DC Insulin Human Regular (NovoLIN R INJ) 10 units ONCE ONCE IV PUSH Last administered on 11/23/17at 22:10; Start 11/23/17 at 21:30; Stop 11/23/17 at 21:38 ; Status DC Labetalol HCl (Trandate Inj) 10 mg Q4H PRN IV PUSH SBP >165 Last administered on 11/25/17at 21:29; Start 11/24/17 at 12:15 Melatonin (Melatonin) 5 mg ONCE ONCE PO Last administered on 11/27/17 21:58; Start 11/27/17 at 21:45; Stop 11/27/17 at 21:46; Status DC Miscellaneous (Pill Splitter) 1 ea UNSCH PRN OTHER SEE LABEL COMMENTS Last administered on 11/29/17 21:06; Start 11/26/17 at 20:00 Miscellaneous Information ([facility] [place] [facility] Nursing Information) 1 Q361D XX Last administered on 11/22/17 21:45; Start 11/22/17 at 21:45 Pharmacy Profile Note 0 ml @ 0 mls/hr UNSCH OTHER ; Start 11/27/17 at 09:00 Piperacillin Sod/ Tazobactam Sod 50 ml @ 100 mls/hr Q6H IV Last administered on 11/27/17 11:57; Start 11/26/17 at 11:00; Stop 11/27/17 at 15:20; Status DC Sodium Polystyrene Sulfonate (Kayexalate Liq) 15 gm ONCE ONCE PO Last administered on 11/23/17 22:03; Start 11/23/17 at 21:30; Stop 11/23/17 at 21:38 ; Status DC Sodium Bicarbonate (Sodium Bicarbonate 8.4% Inj) 50 meq ONCE ONCE IV PUSH Last administered on 11/23/17at 22:04; Start 11/23/17 at 21:30; Stop 11/23/17 at 21:38; Status DC Sodium Chloride 1,000 ml @ 83 mls/hr Q12H3M IV Last administered on 11/30/17 21:13; Start 11/28/17 at 16:45 Sodium Chloride (NS Flush) 2 ml UNSCH PRN IV FLUSH FLUSH AFTER USING IV ACCESS Last administered on 11/27/17 09:51; Start 11/22/17 at 19:15 Tamsulosin HCl (Flomax) 0.4 mg HS PO Last administered on 11/30/17at 21:15; Start 11/23/17 at 21:00 Vancomycin HCl 1000 mg/Sodium Chloride 250 ml @ 250 mls/hr ONCE ONCE IV Last administered on 11/22/17at 22:37; Start 11/22/17 at 22:00; Stop 11/22/17 at 22:59 ; Status DC Vancomycin HCl 1500 mg/Sodium Chloride 515 ml @ 257.5 mls/ hr ONCE ONCE IV Last administered on 11/30/17at 11:14; Start 11/30/17 at 11:00; Stop 11/30/17 at 12:59; Status DC Vancomycin HCl 2000 mg/Sodium Chloride 520 ml @ 250 mls/hr ONCE ONCE IV Last administered on 11/27/17at 09:54; Start 11/27/17 at 10:00; Stop 11/27/17 at 12:04 ; Status DC A/P Problem List: (1) Altered mental status ICD Code: R41.82 - Altered mental status, unspecified Status: Acute (2) UTI (urinary tract infection) ICD Code: N39.0 - Urinary tract infection, site not specified Status: Acute (3) Acute on chronic renal failure ICD Code: N17.9 - Acute kidney failure, unspecified; N18.9 - Chronic kidney disease, unspecified Status: Acute (4) Hyperkalemia ICD Code: E87.5 - Hyperkalemia Status: Resolved (5) Acute metabolic encephalopathy ICD Code: G93.41 - Metabolic encephalopathy Status: Resolved (6) HTN (hypertension) ICD Code: I10 - Essential (primary) hypertension Status: Acute (7) Obesity ICD Code: E66.9 - Obesity, unspecified Status: Acute (8) CHF (congestive heart failure) ICD Code: I50.9 - Heart failure, unspecified Status: Acute (9) CAD (coronary artery disease) ICD Code: I25.10 - Atherosclerotic heart disease of [place] coronary artery without angina pectoris Status: Acute Assessment and Plan Acute metabolic encephalopathy, resolved -Altered mentation was felt to be secondary to sepsis, now back to baseline. - CT brain 11/22 - negative -ABG did not reveal elevated PCO2, ammonia level normal. -EEG triphasic waves c/w severe diffuse encephalopathy. Could increase risk for seizure. No clinical seizure activity and mental status now at baseline. Consider neurology consult for anticonvulsant if there is clinical seizure or if mental status worsens. - Resumed gabapentin 100 mg but changed to once daily in view of renal function and recent mental status issues. -Resumed baclofen but dose adjust to 5 mg q12 based on renal function. -Resumed cymbalta -[place] prn. History of COPD -Nasal cannula oxygen to keep SaO2 >90% -DuoNeb every 4 hours scheduled and as needed. Albuterol q2. -Continue Breo Ellipta History of coronary artery disease History of cardiac arrest Continue Plavix HTN Norvasc 5 mg po daily. Labetalol prn . -Hold lisinopril due to worsening renal failure. h/o Dysphagia - Now able to swallow and diet advanced. - famotidine Acute on chronic kidney disease Acute obstructive uropathy. Hyperkalemia Type 2 diabetes -Monitor BMP, Yang in place. - Continuing flomax 0.4 mg po qhs that he is on chronically. Will need urology followup as outpatient, seen as inpatient but no additional therapy recommended. Yang to remain in place until f/u. -Nephrology Dr. Lima following. -stopped IV fluid due to mild fluid overload.continue to monitor. -Renal ultrasound shows bilateral hydronephrosis. UTI Severe sepsis MRSA bacteremia -Follow-up on blood and urine culture -IV vancomycin 1 GM x1 11/22 - pharmacy consulted for Vanco dosing. -ID f/u appreciated; needs Vanco for two weeks from the first negative blood culture. -echo pending. [facility]. He does not have an advanced directive on file at the [facility]. There is no family contact. There is contact information for a friend named Sarah Pratt who was a neighbor but she states she was never formally designated his healthcare surrogate. She was helping him with grocery shopping and finances when he was living at home. She states he has no family. She states his closest friend who used to take him to doctor appointments was Eran Johnsonmonica (spelling unknown) [phone], . Patient is currently not capacitated for medical decision making and it is unclear who would make medical decisions on his behalf. Palliative care following. Discharge Planning possible discharge within the next one-two days -pending echo. Problem Qualifiers (1) Altered mental status: Qualified Codes: R41.82 - Altered mental status, unspecified (2) UTI (urinary tract infection): Qualified Codes: N39.0 - Urinary tract infection, site not specified; R31.9 - Hematuria, unspecified Felipe Gonzalez MD December 01, 2017 11:01
[2017-12-01 12:38] VITALS: BP 154/66; PULSE 81; RESP 20; TEMP 97.3; O2SAT 96
--- NOTE | 2017-12-01 14:24 | HHI.NPPN ---
Subjective Renal Failure: Chronic, Acute Objective Data Data Vital Signs Date Time Temp Pulse Resp B/P (MAP) Pulse Ox O2 Delivery O2 Flow Rate FiO2 12/01/17 12:38 97.3 81 20 154/66 (95) 96 12/01/17 09:15 Nasal Cannula 2.00 12/01/17 08:35 97.5 79 20 171/71 (104) 99 12/01/17 04:00 97.4 67 19 162/72 (102) 100 12/01/17 04:00 Nasal Cannula 2.00 12/01/17 00:00 97.9 79 17 150/67 (94) 99 12/01/17 00:00 Nasal Cannula 2.00 11/30/17 21:15 Nasal Cannula 2.00 11/30/17 20:00 97.8 87 19 150/65 (93) 93 11/30/17 18:31 Room Air 11/30/17 16:00 97.1 76 20 163/69 (100) 91 -: 11/27/17 0630 12/01/17 0723 Tubes & Lines: Roman Physical Exam General Appearance: Well Developed, Well Nourished, No Acute Distress, Comfortable, Obese Neck Neck Exam: Neck Supple Pulmonary Resp Exam: Clear Bilaterally, Breath Sounds Equal, Decreased Bases Cardiology CV Exam: Regular, Normal Sinus Rhythm Gastrointestinal/Abdomen GI Exam: Soft, Non-Tender, Bowel Sounds Present Genitourinary Exam: Clear Urine Musculoskeletal MS Exam: Joints Intact, Normal Tone Integumentary Skin Exam: Clear, Warm, Dry, Intact Extremeties Extremities Exam: No Edema, Pedal Pulses Palpable Neurologic Neuro Exam: Alert, Awake, Oriented, Speech Clear, Moving All Extremities Psychiatric Psych Exam: Appropriate Responses Assessment/Plan Discussed Condition With: Patient Problem List: (1) Acute on chronic renal failure ICD Codes: N17.9 - Acute kidney failure, unspecified; N18.9 - Chronic kidney disease, unspecified Status: Acute Plan: He has underlying CKD. This is most likley due to chronic obstructive uropathy. His baseline is difficult to ascertain as he has variable readings. 2.8 (creatinine from a few days ago) was his best reading in the past several months. Yesterday his renal function had declined. Pending results from today Seen by urology. Roman was replaced on admission, to be discharged with it Has follow up appt January 19 at [place], most likely due to insurance reasons Continue Flomax Cr slightly better IVF 83 cc/hr follow BMP Dr. Bal to follow (2) UTI (urinary tract infection) ICD Codes: N39.0 - Urinary tract infection, site not specified Status: Acute Plan: with sepsis Hx of frequent UTI, culture + MRSA On vancomycin Closely monitor renal function and renal dose when appropriate At discharge will need roman replaced every 30 days. (3) Hyperkalemia ICD Codes: E87.5 - Hyperkalemia Status: Resolved Plan: corrected, monitor (4) Acute metabolic encephalopathy ICD Codes: G93.41 - Metabolic encephalopathy Status: Resolved Plan: most likely due to UTI. Continue to monitor. Improved (5) Sepsis ICD Codes: A41.9 - Sepsis, unspecified organism Plan: Urosepsis See above Echo ordered to rule out endocarditis Problem Qualifiers (1) UTI (urinary tract infection): Qualified Codes: N39.0 - Urinary tract infection, site not specified; R31.9 - Hematuria, unspecified Taylor Gold MD December 01, 2017 14:24
[2017-12-01] MEDS ORDERED: VANCOMYCIN 1,500 MG/NS 500 ML IV ONE ×2 (15:00)
[2017-12-01 16:18] VITALS: BP 156/77; PULSE 92; RESP 21; TEMP 97.5; O2SAT 95
[2017-12-01 20:00] VITALS: BP 160/70; PULSE 80; RESP 19; TEMP 97.4; O2SAT 97
[2017-12-01] MEDS: TAMSULOSIN HCL 0.4 MG CAP PO SCH (20:42)
[2017-12-02] VITALS (12 sets, daily range): BP systolic 152–187; BP diastolic 69–98; PULSE 67–95; RESP 18–22; TEMP 97.3–98; O2SAT 97–100
[2017-12-02] MEDS: CHLORHEXIDINE GLUCONATE 2 % 1 PACK (2 CLOTHS) TOP SCH (03:42)
--- NOTE | 2017-12-02 08:19 | HHI.PR ---
Subjective Remarks in no acute distress. mildly lethargic. denies pain. no fever. Objective Vitals Vital Signs Date Time Temp Pulse Resp B/P (MAP) Pulse Ox O2 Delivery O2 Flow Rate FiO2 12/02/17 04:00 97.3 67 19 152/69 (96) 97 12/02/17 00:00 97.5 82 19 158/74 (102) 97 12/01/17 20:45 Nasal Cannula 2.00 12/01/17 20:18 Nasal Cannula 2.00 12/01/17 20:00 97.4 80 19 160/70 (100) 97 12/01/17 17:30 Nasal Cannula 2.00 12/01/17 16:18 97.5 92 21 156/77 (103) 95 12/01/17 12:38 97.3 81 20 154/66 (95) 96 12/01/17 12:00 Nasal Cannula 2.00 12/01/17 09:15 Nasal Cannula 2.00 12/01/17 08:35 97.5 79 20 171/71 (104) 99 I/O 12/01/17 12/01/17 12/01/17 12/02/17 12/02/17 12/02/17 07:00 15:00 23:00 07:00 15:00 23:00 Intake Total 995 ml Output Total 950 ml 900 ml 1000 ml Balance -950 ml 95 ml -1000 ml Intake Oral 480 ml IV Total 515 ml Output Urine Total 950 ml 900 ml 1000 ml Result Diagram: 12/01/17 0723 Imaging Last Impressions Chest X-Ray 11/24/17 0000 Signed Impressions: Service Date/Time: Friday, November 24, 2017 17:55 - CONCLUSION: 1. Cardiomegaly with mild positive fluid balance. Michoacano Dean MD Head CT 11/22/17 190 Signed Impressions: Service Date/Time: Wednesday, November 22, 2017 19:57 - CONCLUSION: 1. No acute abnormality seen. 2. Mild atrophy. Walter White MD Renal Ultrasound 11/22/17 0000 Signed Impressions: Service Date/Time: Wednesday, November 22, 2017 21:58 - CONCLUSION: 1. Moderate bilateral hydronephrosis with left ureter dilated throughout its course. 2. Small amount of bladder debris. 3. Increased renal echogenicity characteristic of medical renal disease. Isidro Landeros MD Objective Remarks GENERAL: This is a well-nourished, well-developed patient, in no apparent distress. CARDIOVASCULAR: Regular rate and regular rhythm without murmurs, gallops, or rubs. RESPIRATORY: Clear to auscultation. Breath sounds equal bilaterally. No wheezes , rales, or rhonchi. GASTROINTESTINAL: Abdomen soft, non-tender, nondistended. Normal, active bowel sounds MUSCULOSKELETAL: Extremities without clubbing, cyanosis, or edema. NEURO: Alert & Oriented x4 to person, place, time, situation. Moves all ext x4 Medications and IVs Inpatient Medications Acetaminophen/ Hydrocodone Bitart ([place] 5-325 Mg) 1 tab Q4H PRN PO PAIN SCALE 1 TO 10 Last administered on 11/27/17at 17:01; Start 11/26/17 at 19:45 Albuterol Sulfate (Albuterol Neb) 2.5 mg Q2HR NEB PRN NEB WHEEZING; Start 11/24 at 16:45 Albuterol/ Ipratropium (Duoneb Neb) 1 ampule Q4HR NEB INH Last administered on 11/29/17at 03:20; Start 11/26/17 at 20:00; Stop 11/30/17 at 19:59; Status DC Amlodipine Besylate (Norvasc) 5 mg DAILY OG-TUBE Last administered on at 08:40; Start 11/24/17 at 20:15 Baclofen (Lioresal) 5 mg Q12H PO Last administered on 12/01/17at 20:43; Start at 20:00 Calcium Gluconate (Calcium Gluconate Inj) 1 gm ONCE ONCE SLOW IVP Last administered on 11/22/17at 21:41; Start 11/22/17 at 20:30; Stop 11/22/17 at 20:31 ; Status DC Calcium Gluconate 2 gm/Sodium Chloride 120 ml @ 120 mls/hr ONCE ONCE IV Last administered on 11/23/17at 21:59; Start 11/23/17 at 21:30; Stop 11/23/17 at 22:29 ; Status DC Chlorhexidine Gluconate (Chlorhexidine 2% Cloth) 3 pack UNSCH PRN TOP HYGIENIC CARE; Start 11/22/17 at 21:45 Clopidogrel Bisulfate (Plavix) 75 mg DAILY PO Last administered on 12/01/17 08 :40; Start 11/23/17 at 09:00 Dextrose (D50w (Syr) Inj) 25 ml ONCE ONCE IV PUSH Last administered on 22:04; Start 11/23/17 at 21:30; Stop 11/23/17 at 21:31; Status DC Dextrose (D50w (Vial) Inj) 50 ml ONCE ONCE IV PUSH Last administered on at 10:26; Start 11/23/17 at 09:30; Stop 11/23/17 at 09:31; Status DC Duloxetine HCl (Cymbalta Dr) 40 mg DAILY PO Last administered on 12/01/17 08: 40; Start 11/27/17 at 09:00 Famotidine (Pepcid Inj) 10 mg Q12H IV PUSH Last administered on 11/26/17 23:28 ; Start 11/23/17 at 11:00; Stop 11/27/17 at 11:36; Status DC Famotidine (Pepcid) 10 mg BID PO Last administered on 12/01/17 20:42; Start at 12:00 Fluticasone/ Vilanterol (Breo Ellipta 100-25 Inh) 1 puff DAILY INH Last administered on 12/01/17 08:41; Start 11/23/17 at 09:00 Furosemide (Lasix Inj) 20 mg ONCE ONCE IV PUSH Last administered on 11/26/17 20:26; Start 11/26/17 at 19:30; Stop 11/26/17 at 19:31; Status DC Gabapentin (Neurontin) 100 mg DAILY PO Last administered on 12/01/17 08:40; Start 11/26/17 at 19:45 Heparin Sodium (Porcine) (Heparin Inj) 5,000 units Q12H SQ Last administered on 12/01/17 20:43; Start 11/22/17 at 22:00 Insulin Aspart (NovoLOG SUPPLEMENTAL SCALE) 1 Q4H SQ ; Start 11/22/17 at 23:00; Stop 11/29/17 at 11:39; Status DC Insulin Human Regular (NovoLIN R INJ) 10 units ONCE ONCE IV PUSH Last administered on 11/23/17at 22:10; Start 11/23/17 at 21:30; Stop 11/23/17 at 21:38 ; Status DC Labetalol HCl (Trandate Inj) 10 mg Q4H PRN IV PUSH SBP >165 Last administered on 11/25/17at 21:29; Start 11/24/17 at 12:15 Melatonin (Melatonin) 5 mg ONCE ONCE PO Last administered on 11/27/17 21:58; Start 11/27/17 at 21:45; Stop 11/27/17 at 21:46; Status DC Miscellaneous (Pill Splitter) 1 ea UNSCH PRN OTHER SEE LABEL COMMENTS Last administered on 11/29/17 21:06; Start 11/26/17 at 20:00 Miscellaneous Information ([facility] Nursing Information) 1 Q361D XX Last administered on 11/22/17at 21:45; Start 11/22/17 at 21:45 Pharmacy Profile Note 0 ml @ 0 mls/hr UNSCH OTHER ; Start 11/27/17 at 09:00 Piperacillin Sod/ Tazobactam Sod 50 ml @ 100 mls/hr Q6H IV Last administered on 11/27/17at 11:57; Start 11/26/17 at 11:00; Stop 11/27/17 at 15:20; Status DC Sodium Polystyrene Sulfonate (Kayexalate Liq) 15 gm ONCE ONCE PO Last administered on 11/23/17 22:03; Start 11/23/17 at 21:30; Stop 11/23/17 at 21:38 ; Status DC Sodium Bicarbonate (Sodium Bicarbonate 8.4% Inj) 50 meq ONCE ONCE IV PUSH Last administered on 11/23/17at 22:04; Start 11/23/17 at 21:30; Stop 11/23/17 at 21:38; Status DC Sodium Chloride 1,000 ml @ 83 mls/hr Q12H3M IV Last administered on 11/30/17at 21:13; Start 11/28/17 at 16:45; Status Future Hold Sodium Chloride (NS Flush) 2 ml UNSCH PRN IV FLUSH FLUSH AFTER USING IV ACCESS Last administered on 11/27/17 09:51; Start 11/22/17 at 19:15 Tamsulosin HCl (Flomax) 0.4 mg HS PO Last administered on 12/01/17at 20:42; Start 11/23/17 at 21:00 Vancomycin HCl 1000 mg/Sodium Chloride 250 ml @ 250 mls/hr ONCE ONCE IV Last administered on 11/22/17at 22:37; Start 11/22/17 at 22:00; Stop 11/22/17 at 22:59 ; Status DC Vancomycin HCl 1500 mg/Sodium Chloride 515 ml @ 257.5 mls/ hr ONCE ONCE IV Last administered on 12/01/17at 18:43; Start 12/01/17 at 15:00; Stop 12/01/17 at 16:59; Status DC Vancomycin HCl 2000 mg/Sodium Chloride 520 ml @ 250 mls/hr ONCE ONCE IV Last administered on 11/27/17at 09:54; Start 11/27/17 at 10:00; Stop 11/27/17 at 12:04 ; Status DC A/P Problem List: (1) Altered mental status ICD Code: R41.82 - Altered mental status, unspecified Status: Acute (2) UTI (urinary tract infection) ICD Code: N39.0 - Urinary tract infection, site not specified Status: Acute (3) Acute on chronic renal failure ICD Code: N17.9 - Acute kidney failure, unspecified; N18.9 - Chronic kidney disease, unspecified Status: Acute (4) Hyperkalemia ICD Code: E87.5 - Hyperkalemia Status: Resolved (5) Acute metabolic encephalopathy ICD Code: G93.41 - Metabolic encephalopathy Status: Resolved (6) HTN (hypertension) ICD Code: I10 - Essential (primary) hypertension Status: Acute (7) Obesity ICD Code: E66.9 - Obesity, unspecified Status: Acute (8) CHF (congestive heart failure) ICD Code: I50.9 - Heart failure, unspecified Status: Acute (9) CAD (coronary artery disease) ICD Code: I25.10 - Atherosclerotic heart disease of [place] coronary artery without angina pectoris Status: Acute Assessment and Plan Acute metabolic encephalopathy- mildly lethargic today- check ABG -Altered mentation was felt to be secondary to sepsis, now back to baseline. - CT brain 11/22 - negative -ABG did not reveal elevated PCO2, ammonia level normal. -EEG triphasic waves c/w severe diffuse encephalopathy. Could increase risk for seizure. No clinical seizure activity and mental status now at baseline. Consider neurology consult for anticonvulsant if there is clinical seizure or if mental status worsens. - Resumed gabapentin 100 mg but changed to once daily in view of renal function and recent mental status issues. -Resumed baclofen but dose adjust to 5 mg q12 based on renal function. -Resumed cymbalta -[place] prn. History of COPD -Nasal cannula oxygen to keep SaO2 >90% -neb treatment. -Continue Breo Ellipta History of coronary artery disease History of cardiac arrest Continue Plavix HTN Norvasc 5 mg po daily. Labetalol prn . -Hold lisinopril due to worsening renal failure. h/o Dysphagia - Now able to swallow and diet advanced. - famotidine Acute on chronic kidney disease Acute obstructive uropathy. Hyperkalemia Type 2 diabetes - Yang in place. - Continuing flomax 0.4 mg po qhs that he is on chronically. Will need urology followup as outpatient, seen as inpatient but no additional therapy recommended. Yang to remain in place until f/u. -Nephrology Dr. Lima following. -stopped IV fluid due to mild fluid overload.continue to monitor. -Renal ultrasound shows bilateral hydronephrosis. UTI Severe sepsis MRSA bacteremia -Follow-up on blood and urine culture -IV vancomycin 1 GM x1 11/22 - pharmacy consulted for Vanco dosing. -ID f/u appreciated; needs Vanco for two weeks from the first negative blood culture. -echo still pending. [facility]. He does not have an advanced [facility]. There is no family contact. There is contact information for a friend named Sarah Pratt who was a neighbor but she states she was never formally designated his healthcare surrogate. She was helping him with grocery shopping and finances when he was living at home. She states he has no family. She states his closest friend who used to take him to doctor appointments was Eran Johnsonmonica (spelling unknown) [phone], . Patient is currently not capacitated for medical decision making and it is unclear who would make medical decisions on his behalf. Palliative care following. Discharge Planning will dc to SNF when cleared by ID after echo is resulted. Problem Qualifiers (1) Altered mental status: Qualified Codes: R41.82 - Altered mental status, unspecified (2) UTI (urinary tract infection): Qualified Codes: N39.0 - Urinary tract infection, site not specified; R31.9 - Hematuria, unspecified Felipe Gonzalez MD December 02, 2017 08:19
[2017-12-02] MEDS: CLOPIDOGREL 75 MG TAB PO SCH (08:58)
[2017-12-02] MEDS: GABAPENTIN 100 MG CAP PO SCH (08:58)
[2017-12-02] MEDS: FLUTICASONE 100 MCG/VILANTEROL 25 MCG INHALER INH SCH (08:58)
[2017-12-02] MEDS: DULoxetine HCl DR 20 MG CAP PO SCH (08:58)
[2017-12-02] MEDS: amLODIPine BESYLATE 5 MG TAB OG-TUBE SCH (08:58)
[2017-12-02] MEDS: FAMOTIDINE 20 MG TAB PO SCH ×2 (08:58→22:43)
[2017-12-02] MEDS: BACLOFEN 10 MG TAB PO SCH ×2 (08:58→22:42)
--- NOTE | 2017-12-02 10:17 | HHI.NPPN ---
Subjective Renal Failure: Chronic, Acute Interval History Non oliguric. Labs from today are not available. As of yesterday, creatinine had decreased slightly, most likely his eGFR is at baseline. Objective Data Data Vital Signs Date Time Temp Pulse Resp B/P (MAP) Pulse Ox O2 Delivery O2 Flow Rate FiO2 12/02/17 08:09 98.0 82 18 172/73 (106) 100 12/02/17 04:00 97.3 67 19 152/69 (96) 97 12/02/17 00:00 97.5 82 19 158/74 (102) 97 12/01/17 20:45 Nasal Cannula 2.00 12/01/17 20:18 Nasal Cannula 2.00 12/01/17 20:00 97.4 80 19 160/70 (100) 97 12/01/17 17:30 Nasal Cannula 2.00 12/01/17 16:18 97.5 92 21 156/77 (103) 95 12/01/17 12:38 97.3 81 20 154/66 (95) 96 12/01/17 12:00 Nasal Cannula 2.00 -: 12/01/17 0723 Tubes & Lines: Yang Physical Exam General Appearance: Well Developed, Well Nourished, No Acute Distress, Comfortable, Obese Neck Neck Exam: Neck Supple Pulmonary Resp Exam: Clear Bilaterally, Breath Sounds Equal, Decreased Bases Cardiology CV Exam: Regular, Normal Sinus Rhythm Gastrointestinal/Abdomen GI Exam: Soft, Non-Tender, Bowel Sounds Present Genitourinary Exam: Clear Urine Musculoskeletal MS Exam: Joints Intact, Normal Tone Integumentary Skin Exam: Clear, Warm, Dry, Intact Extremeties Extremities Exam: No Edema, Pedal Pulses Palpable Neurologic Neuro Exam: Alert, Awake, Oriented, Speech Clear, Moving All Extremities Psychiatric Psych Exam: Appropriate Responses Assessment/Plan Discussed Condition With: Patient Problem List: (1) Acute on chronic renal failure ICD Codes: N17.9 - Acute kidney failure, unspecified; N18.9 - Chronic kidney disease, unspecified Status: Acute Plan: He has underlying CKD. This is most likely due to chronic obstructive uropathy. GFR is most likely at baseline. Avoid nephrotoxic agents. Encourage oral intake. (2) UTI (urinary tract infection) ICD Codes: N39.0 - Urinary tract infection, site not specified Status: Acute Plan: with sepsis History of frequent UTI, culture + MRSA On vancomycin Closely monitor renal function and renal dose when appropriate At discharge will need Yang replaced every 30 days. (3) Hyperkalemia ICD Codes: E87.5 - Hyperkalemia Status: Resolved Plan: corrected, monitor (4) Acute metabolic encephalopathy ICD Codes: G93.41 - Metabolic encephalopathy Status: Resolved Plan: most likely due to UTI. Continue to monitor. Improved (5) Sepsis ICD Codes: A41.9 - Sepsis, unspecified organism Plan: On antibiotic. Problem Qualifiers (1) UTI (urinary tract infection): Qualified Codes: N39.0 - Urinary tract infection, site not specified; R31.9 - Hematuria, unspecified Curt Bal MD December 02, 2017 10:17
[2017-12-02] MEDS: HEPARIN SODIUM - SQ 10,000 UNITS/ML VIAL SQ SCH ×2 (12:38→22:43)
--- NOTE | 2017-12-02 13:38 | HHI.IDPN ---
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 Vital Signs Date Time Temp Pulse Resp B/P (MAP) Pulse Ox O2 Delivery O2 Flow Rate FiO2 12/02/17 12:09 97.8 80 18 178/98 (124) 100 12/02/17 08:09 98.0 82 18 172/73 (106) 100 12/02/17 04:00 97.3 67 19 152/69 (96) 97 12/02/17 00:00 97.5 82 19 158/74 (102) 97 12/01/17 20:45 Nasal Cannula 2.00 12/01/17 20:18 Nasal Cannula 2.00 12/01/17 20:00 97.4 80 19 160/70 (100) 97 12/01/17 17:30 Nasal Cannula 2.00 12/01/17 16:18 97.5 92 21 156/77 (103) 95 . Laboratory Tests Test 12/01/17 07:23 Blood Urea Nitrogen 35 MG/DL Creatinine 3.48 MG/DL Random Glucose 76 MG/DL Calcium Level 8.5 MG/DL Sodium Level 146 MEQ/L Potassium Level 4.2 MEQ/L Chloride Level 115 MEQ/L Carbon Dioxide Level 21.6 MEQ/L Anion Gap 9 MEQ/L Estimat Glomerular Filtration Rate 17 ML/MIN Imaging Last Impressions Chest X-Ray 11/24/17 0000 Signed Impressions: Service Date/Time: Friday, November 24, 2017 17:55 - CONCLUSION: 1. Cardiomegaly with mild positive fluid balance. Michoacano Dean MD Head CT 11/22/17 190 Signed Impressions: Service Date/Time: Wednesday, November 22, 2017 19:57 - CONCLUSION: 1. No acute abnormality seen. 2. Mild atrophy. Walter White MD Renal Ultrasound 11/22/17 0000 Signed Impressions: Service Date/Time: Wednesday, November 22, 2017 21:58 - CONCLUSION: 1. Moderate bilateral hydronephrosis with left ureter dilated throughout its course. 2. Small amount of bladder debris. 3. Increased renal echogenicity characteristic of medical renal disease. Isidro Landeros MD Physical Exam ONSTITUTIONAL/GENERAL: This is an adequately nourished patient, in no apparent distress. sitting in bed comfortabl;e TUBES/LINES/DRAINS: SKIN: No jaundice, rashes, or lesions. Skin temperature appropriate. Not diaphoretic. CARDIOVASCULAR: Regular rate and rhythm without murmurs, gallops, or rubs. No JVD. Peripheral pulses symmetric. Pacer in place R chest - OK RESPIRATORY/CHEST: Symmetric, unlabored respirations. Clear to auscultation. Breath sounds equal bilaterally. No wheezes, rales, or rhonchi. GASTROINTESTINAL: Abdomen soft, non-tender, nondistended. No hepato-splenomegaly , or palpable masses. No guarding. Bowel sounds present. GENITOURINARY: Without palpable bladder distension. Roman catheter in place with clear yellow urine MUSCULOSKELETAL: Extremities without clubbing, cyanosis, or edema. No joint tenderness or effusion noted. No calf tenderness. No mottling or clubbing. Well healed R hallux amputation site NEUROLOGICAL: Sound asleep Motor and sensory grossly within normal limits. Follows commands. Clear speech, but obvoois memory lapses. Unable to provide history . Moves all extremities. PSYCHIATRIC: No obvious anxiety/depression. no apparent hallucinations or other psychotic thought process. Assessment & Plan Remarks Low grade MRSA bacteremia - pt has pacer Sepsis UTI, MRSA Obstructive uropathy - resolved with roman ARF - worse DM dc vancomycin fu random levels fu creatinine will use dapto n to complete OK to dc with IV abx if neg BC repeat BC 2 weeks after abx completed dw Fanny Heard MD December 02, 2017 13:38
--- NOTE | 2017-12-02 16:45 | HHI.HCPN ---
Reason for visit a. To assist with evaluation and management of symptoms including: pain, debility, encephalopathy b. To assist medical decision maker(s) with: better understanding of current medical conditions; weighing benefits/burdens of medical treatment options; making medical treatment decisions. . (Margarita Frank) Subjective/Interval History Mr. Rosenebrg is a 77 year old male admitted 11/22/17 for management hyperkalemia, acute renal failure, UTI and altered mental status. Follow-up visit for symptom management of pain, debility and encephalopathy. Patient was seen and assessed in room 1433. He is more lethargic and confused today than when he was last seen. Arouses briefly to persistent verbal stimuli and light touch. Denies pain but states, "I'm tired." He does not respond to any other questions and appears to fall back asleep. Afebrile. Urine culture from 11/25/2017 + MRSA. Echocardiogram was negative for vegetation. Vancomycin was discontinued; patient started on daptomycin every 48 hours. Infectious disease following. 12/01/2017: BUN 35; creatinine 3.48; GFR 17. Nonoliguric. Nephrology following. Discussed patient with nurse (Erlinda), case management (Swapna) and Dr. Gonzalez. Ongoing aggressive goals at this time. Patient has designated friends (Eran Guerrier and Mayc Elliott) as his primary and alternate healthcare surrogate decision makers. . (Margarita Frank) Advance Directives Health Care Surrogate: Copy in medical record (Margarita Frank) Advance Directive Specifics Date completed: 11/27/2017 . Health Care Surrogate(s): Healthcare designation form was redone on 11/27/2017. Designating Eran Guerrier as the primary healthcare surrogate decision maker and Macy Elliott as the alternate healthcare surrogate decision maker. . Documented care wishes: Patient refused to complete living will on 11/27/2017. . . (Margarita Frank) Objective Vital Signs Date Time Temp Pulse Resp B/P (MAP) Pulse Ox O2 Delivery O2 Flow Rate FiO2 12/02/17 12:09 97.8 80 18 178/98 (124) 100 12/02/17 08:09 98.0 82 18 172/73 (106) 100 12/02/17 04:00 97.3 67 19 152/69 (96) 97 12/02/17 00:00 97.5 82 19 158/74 (102) 97 12/01/17 20:45 Nasal Cannula 2.00 12/01/17 20:18 Nasal Cannula 2.00 12/01/17 20:00 97.4 80 19 160/70 (100) 97 12/01/17 17:30 Nasal Cannula 2.00 Intake & Output 12/02/17 12/02/17 06:59 18:59 Intake Total 995 ml Output Total 1900 ml Balance -905 ml Intake Oral 480 ml IV Total 515 ml Output Urine Total 1900 ml . Physical Exam CONSTITUTIONAL/GENERAL: This is an adequately nourished patient, in no apparent distress. TUBES/LINES/DRAINS: urinary cath, PIV, nasal cannula SKIN: No jaundice, rashes, or lesions. Ecchymoses on upper extremities. No wounds seen anteriorly. Skin temperature appropriate. Not diaphoretic. HEAD: Atraumatic. Normocephalic. EYES: Pupils equal and round and reactive. Extraocular motions intact. No scleral icterus. No injection or drainage. Fundi not examined. ENT: Hearing grossly normal. Nose without bleeding or purulent drainage. Throat without visible erythema, exudates, masses, or lesions. NECK: Trachea midline. Supple, nontender. No palpable thyroid enlargement or nodularity. CARDIOVASCULAR: Regular rate and rhythm without murmurs, gallops, or rubs. No JVD. Peripheral pulses symmetric. RESPIRATORY/CHEST: Symmetric, unlabored respirations. Clear to auscultation. Breath sounds diminished bilaterally. No accessory muscle usage. No wheezes, rales, or rhonchi. GASTROINTESTINAL: Abdomen soft, non-tender, nondistended. No guarding. Bowel sounds present. GENITOURINARY: Without palpable bladder distension. Yang catheter draining cloudy, yellow urine. MUSCULOSKELETAL: Extremities without clubbing, cyanosis, or edema. No mottling or clubbing. LYMPHATICS: No palpable cervical or supraclavicular adenopathy. NEUROLOGICAL: Lethargic. Arouses only briefly to persistent verbal and light tactile stimuli. PSYCHIATRIC: No obvious anxiety/depression. No apparent hallucinations or other psychotic thought process. . (Margarita Frank) Diagnostic Tests Laboratory Laboratory Tests Test 11/30/17 05:57 12/01/17 07:23 12/02/17 06:40 Random Vancomycin Level 13.2 COMMENT 30.6 COMMENT Blood Urea Nitrogen 35 MG/DL (7-18) Creatinine 3.48 MG/DL (0.60-1.30) Random Glucose 76 MG/DL (74-106) Calcium Level 8.5 MG/DL (8.5-10.1) Sodium Level 146 MEQ/L (136-145) Potassium Level 4.2 MEQ/L (3.5-5.1) Chloride Level 115 MEQ/L (98-107) Carbon Dioxide Level 21.6 MEQ/L (21.0-32.0) Anion Gap 9 MEQ/L (5-15) Estimat Glomerular Filtration Rate 17 ML/MIN (>89) . (Margarita Frank) Result Diagram: 12/01/17 0723 Assessment and Plan Disease Oriented Problem List: (1) UTI (urinary tract infection) (2) Acute on chronic renal failure (3) Hyperkalemia (4) Acute metabolic encephalopathy (5) HTN (hypertension) (6) CHF (congestive heart failure) (7) CAD (coronary artery disease) (8) Obesity Symptom Scale: (1) Pain 0-10 Scale: 0 Comment: Patient denies pain; shows no signs or symptoms of nonverbal pain. . (2) Encephalopathy 0-10 Scale: 0 Comment: Resolved 11/27/2017; patient noted to be increasingly lethargic today . Arouses only briefly to persistent verbal and light tactile stimuli. . (3) Debility 0-10 Scale: Unable to quantify Pertinent Non-Medical Issues Psychosocial: Patient was in [place], [place]. He states he had no siblings. He moved to [place] while working with the [employer]. 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 He was 3 times (Blanka, Dayanara and Brisa aka Santosh). He states he had 4 children (Kinjal, Pedro Luis, Russel and Lee ) who were born in [place], [place]. The patient states his children were taken away from there mother by the state, and he does not know where they ended up. Spiritual: Evangelical fabien Legal: Patient's friend (Eran Guerrier) has been designated as the primary healthcare surrogate decision maker; Macy Raphaelley is designated as the alternate healthcare surrogate decision maker. Ethical issues impacting care: None known . Important Contacts Eran Guerrier,friend: [phone] Macy Earl, friend: [phone] Sarah Terence, friend: [phone] . Prognosis Patient is a 77 year old male with a complex medical history that includes CAD, previous cardiac arrest, previous urosepsis/recurrent UTI, GI bleed, CKD, COPD, CHF, hypertension and altered mental status. H has been long term resident since an acute decline that began in March,. Given the patient's advanced age, recent acute decline and complex medical history, it is likely he will continue to experience setbacks and complications with associated rehospitalization. His overall prognosis is poor. . Code Status: Full Code Plan * FULL CODE * Decision-making: Patient has insight and judgment toward his medical conditions at this time. Healthcare surrogate designation form was redone today 11/27/2017 and designates friend (Eran Guerrier) as the primary healthcare surrogate decision maker and (Macy Earl) as the alternate healthcare surrogate decision maker. Palliative care spoke to both individuals who verbalizes willingness to act in this role * AGGRESSIVE GOALS. Patient indicates he "wants everything" including intubation with mechanical ventilation as well as tracheostomy/PEG tube placement if it were indicated. * Discussed medical treatment goals with RN (Makayla), child welfare caseworker (Swapna) and Dr. Gonzalez * Symptom managementdebility: Per EMR, patient previously stated he was living in dependently and fully functioning prior to his initial hospitalization at [facility] in March,. The patient now lives at [facility]. He states he will likely be unable to return to his home secondary to his continued decline. Patient previously reported progressively worsening fatigue and weight loss. He states he has become more weak and has had worsening shortness of breath. * Symptom managementencephalopathy: Presented to [facility] on 11/22/17 via EMS for evaluation of altered mental status. Per report, patient had become increasingly confused and somnolent over the previous 24-48 hours. He is communicative at baseline but would not answer questions or follow commands on exam. CT brain showed mild atrophy; no acute abnormalities were seen. Symptoms of encephalopathy resolved 11/27/2017; however the patient is increasingly confused and lethargic today 12/02/2017. Arouses only briefly to persistent verbal and light tactile stimuli. * Palliative care will continue to follow patient throughout his hospitalization to establish trust, assist with symptom management and clarification of medical treatment goals. . (Margarita Frank) Attestation To help prompt me to consider important information that might be impacting today's encounter and assessment, information from prior notes written by myself or my colleagues may have been "brought forward" into today's note. My signature on this note, however, is an attestation that I personally performed the exam, history, and/or decision-making noted today, and, unless otherwise indicated, the interactions with patient, family, and staff as well as the review of records all occurred today. I also attest that the listed assessment and stated plan reflect my best clinical judgment today based on the combination of historical information, prior notes, and today's exam/ interactions. When time spent is documented, it refers only to time spent today by the signer, or if indicated, combined time spent today by collaborating physician/nurse practitioner. . (Margarita Frank) Collaborating MD Comments Chart reviewed. Case discussed with palliative care PLASTICS SUPERVISOR. Above note reviewed and I concur. . (Robert Pizraro MD) Margarita Frank December 02, 2017 16:45 Robert Pizarro MD Dec 21, 2017 13:18
--- NOTE | 2017-12-02 17:52 | ECHRPT ---
Indication: VEGETATIONS CONCLUSIONS The left ventricular systolic function is moderately reduced with an estimated ejection fraction in the range of 40-45%. Normal left ventricular size. Mild concentric left ventricular hypertrophy. A pacemaker wire is noted. The left atrial size is [id number] dilated. There is a pacemaker wire present in the right atrial cavity. Trace mitral valve regurgitation. Mild mitral annular calcification. There is mild tricuspid valve regurgitation. The estimated pulmonary arterial pressure is 59.8 mmHg. There is estimated moderate pulmonary hypertension present (range 50-60 mmHg). The left ventricular systolic function is moderately reduced with an estimated ejection fraction in the range of 40-45%. Normal left ventricular size. Mild concentric left ventricular hypertrophy. A pacemaker wire is noted. The left atrial size is vzvxiqaw-rn-ksyfejjc dilated. There is a pacemaker wire present in the right atrial cavity. No atrial level shunt is demonstrated by color flow Doppler interrogation. Trace mitral valve regurgitation. Mild mitral annular calcification. There is mild tricuspid valve regurgitation. The estimated pulmonary arterial pressure is 59.8 mmHg. There is estimated moderate pulmonary hypertension present (range 50-60 mmHg). aortic valve mean gradient = 18 mm hg c/w mild to moderate aortic valve stenosis BP: 131 / 95 HR: 85 Rhythm: Sinus MEASUREMENTS (Male / Female) Normal Values Technical Quality:Technically difficult study 2D ECHO LV Diastolic Diameter PLAX 4.8 cm 4.2 - 5.9 / 3.9 - 5.3 cm LV Systolic Diameter PLAX 4.0 cm IVS Diastolic Thickness 1.4 cm 0.6 - 1.0 / 0.6 - 0.9 cm LVPW Diastolic Thickness 1.4 cm 0.6 - 1.0 / 0.6 - 0.9 cm LV Relative Wall Thickness 0.6 RV Internal Dim ED PLAX 3.3 cm LVOT Diameter 2.5 cm Aortic Root Diameter 3.7 cm LA Systolic Diameter LX 4.7 cm 3.0 - 4.0 / 2.7 - 3.8 cm DOPPLER AV Peak Velocity 273.0 cm/s AV Peak Gradient 29.8 mmHg AV Mean Gradient 18.0 mmHg AV Velocity Time Integral 58.9 cm LVOT Peak Velocity 85.0 cm/s LVOT Peak Gradient 2.9 mmHg LVOT Velocity Time Integral 21.9 cm LVOT Cardiac Index 3628.1 cm/minm AV Area Cont Eq vti 1.8 cm AV Area Cont Eq pk 1.5 cm Mitral E Point Velocity 109.0 cm/s Mitral A Point Velocity 107.0 cm/s Mitral E to A Ratio 1.0 LV E' Lateral Velocity 8.0 cm/s Mitral E to LV E' Lateral Ratio 13.6 LV E' Septal Velocity 6.5 cm/s Mitral E to LV E' Septal Ratio 16.7 TR Peak Velocity 353.0 cm/s TR Peak Gradient 49.8 mmHg Right Atrial Pressure 10.0 mmHg Pulmonary Artery Systolic Pressu 59.8 mmHg Right Ventricular Systolic Press 59.8 mmHg PV Peak Velocity 74.4 cm/s PV Peak Gradient 2.2 mmHg FINDINGS LEFT VENTRICLE The left ventricular systolic function is moderately reduced with an estimated ejection fraction in the range of 40-45%. Normal left ventricular size. Mild concentric left ventricular hypertrophy. RIGHT VENTRICLE A pacemaker wire is noted. Normal right ventricular size and systolic function. LEFT ATRIUM The left atrial size is [id number]-[id number]-wllxqnnh dilated. RIGHT ATRIUM There is a pacemaker wire present in the right atrial cavity. ATRIAL SEPTUM No atrial level shunt is demonstrated by color flow Doppler interrogation. AORTA The aortic root and proximal ascending aorta are normal in size on limited imaging. MITRAL VALVE Trace mitral valve regurgitation. Mild mitral annular calcification. AORTIC VALVE Trileaflet aortic valve. No aortic valve stenosis or regurgitation. TRICUSPID VALVE There is mild tricuspid valve regurgitation. The estimated pulmonary arterial pressure is 59.8 mmHg. There is estimated moderate pulmonary hypertension present (range 50-60 mmHg). PULMONARY VALVE No pulmonary valve regurgitation or stenosis. Roderick Phelps MD, FACC, [facility] (Electronically Signed) Final Date:02 Dec 2017 17:51
[2017-12-02] MEDS: TAMSULOSIN HCL 0.4 MG CAP PO SCH (22:43)
[2017-12-02] MEDS: hydrALAZINE HCL 20 MG/ML VIAL IV PUSH PRN (22:54)
[2017-12-02] MEDS: SODIUM CHLORIDE 0.9% FLUSH 10 ML FLUSH IV FLUSH PRN (22:54)
[2017-12-03] VITALS (10 sets, daily range): BP systolic 136–187; BP diastolic 67–88; PULSE 20–97; RESP 16–24; TEMP 97.7–98.3; O2SAT 95–100
[2017-12-03] MEDS: CHLORHEXIDINE GLUCONATE 2 % 1 PACK (2 CLOTHS) TOP SCH (03:53)
[2017-12-03 05:56] LABS: BICARBONATE 20.8 MEQ/L (21.0-32.0); CREATININE 3.24 MG/DL (0.60-1.30)
[2017-12-03 05:59] LABS: RANDOM VANCOMYCIN 28.4 COMMENT
[2017-12-03] MEDS: DAPTOmycin INJ 700 MG in SODIUM CHLORIDE 0.9% INJ 100 ML IV SCH (08:15)
[2017-12-03] MEDS: FLUTICASONE 100 MCG/VILANTEROL 25 MCG INHALER INH SCH (08:15)
[2017-12-03] MEDS: GABAPENTIN 100 MG CAP PO SCH (08:16)
[2017-12-03] MEDS: amLODIPine BESYLATE 5 MG TAB OG-TUBE SCH (08:17)
[2017-12-03] MEDS: FAMOTIDINE 20 MG TAB PO SCH ×2 (08:17→22:14)
[2017-12-03] MEDS: DULoxetine HCl DR 20 MG CAP PO SCH (08:17)
[2017-12-03] MEDS: BACLOFEN 10 MG TAB PO SCH (08:17)
[2017-12-03] MEDS: CLOPIDOGREL 75 MG TAB PO SCH (08:17)
[2017-12-03] MEDS ORDERED: DAPTOmycin INJ 700 MG in SODIUM CHLORIDE 0.9% INJ 100 ML IV SCH (09:00)
--- NOTE | 2017-12-03 09:01 | HHI.NPPN ---
Subjective Renal Failure: Chronic, Acute Interval History Lethargic today but is able to mumble answers. Renal function is better, hypernatremic today. (Mariza Loya) Objective Data Data Vital Signs Date Time Temp Pulse Resp B/P (MAP) Pulse Ox O2 Delivery O2 Flow Rate FiO2 12/03/17 04:00 Nasal Cannula 2.00 12/03/17 04:00 97.7 93 20 187/82 (117) 100 Manual Cuff/Auscultation 12/03/17 03:58 90 12/03/17 01:10 88 12/03/17 00:20 84 168/88 (114) 12/03/17 00:20 Nasal Cannula 2.00 12/02/17 23:45 90 20 187/90 (122) 12/02/17 23:30 97.5 91 20 172/69 (103) 99 12/02/17 23:15 95 22 166/78 (107) 12/02/17 22:59 84 20 176/80 (112) 12/02/17 22:54 92 20 164/81 (108) 12/02/17 20:00 97.6 89 20 183/80 (114) 99 12/02/17 16:09 97.8 85 19 186/76 (112) 99 12/02/17 12:09 97.8 80 18 178/98 (124) 100 (Mariza Loya) -: 12/03/17 0505 Imaging Last Impressions Chest X-Ray 11/24/17 0000 Signed Impressions: Service Date/Time: Friday, November 24, 2017 17:55 - CONCLUSION: 1. Cardiomegaly with mild positive fluid balance. Michoacano Dean MD Head CT 11/22/17 1907 Signed Impressions: Service Date/Time: Wednesday, November 22, 2017 19:57 - CONCLUSION: 1. No acute abnormality seen. 2. Mild atrophy. Walter White MD Renal Ultrasound 11/22/17 0000 Signed Impressions: Service Date/Time: Wednesday, November 22, 2017 21:58 - CONCLUSION: 1. Moderate bilateral hydronephrosis with left ureter dilated throughout its course. 2. Small amount of bladder debris. 3. Increased renal echogenicity characteristic of medical renal disease. Isidro Landeros MD Tubes & Lines: Yang (Mariza Loya. FAMILY [employer] CARE WORKER) Physical Exam General Appearance: Well Developed, Well Nourished, No Acute Distress, Comfortable, Obese (Mariza Loya B. FAMILY DAY CARE WORKER) Neck Neck Exam: Neck Supple (Ulisses Loyaon B. FAMILY DAY CARE WORKER) Pulmonary Resp Exam: Clear Bilaterally, Breath Sounds Equal, Decreased Bases (Ulisses Loyaon B. FAMILY DAY CARE WORKER) Cardiology CV Exam: Regular, Normal Sinus Rhythm (Mariza Loya B. FAMILY DAY CARE WORKER) Gastrointestinal/Abdomen GI Exam: Soft, Non-Tender, Bowel Sounds Present (Mariza Loya B. FAMILY DAY CARE WORKER) Genitourinary Exam: Clear Urine (Mariza Loya B. FAMILY DAY CARE WORKER) Musculoskeletal MS Exam: Joints Intact, Normal Tone (Mariza Loya B. FAMILY DAY CARE WORKER) Integumentary Skin Exam: Clear, Warm, Dry, Intact (Mariza Loya B. FAMILY DAY CARE WORKER) Extremeties Extremities Exam: No Edema, Pedal Pulses Palpable (Mariza Loya B. FAMILY DAY CARE WORKER) Neurologic Neuro Exam: Awake Neuro Remarks lethargic (Mariza Loya B. FAMILY DAY CARE WORKER) Psychiatric Psych Exam: Appropriate Responses (Mariza Loya B. FAMILY DAY CARE WORKER) Assessment/Plan Discussed Condition With: Patient Electrolyte Assessment: Hypernatremia, Metabolic Acidosis Problem List: (1) Acute on chronic renal failure ICD Codes: N17.9 - Acute kidney failure, unspecified; N18.9 - Chronic kidney disease, unspecified Status: Acute Plan: He has underlying CKD. This is most likely due to chronic obstructive uropathy. Renal function is slightly better Hypernatremic, start D5W as PO intake is does not seem adequate Avoid nephrotoxic agents. RN to offer oral intake regularly. Repeat labs. (2) UTI (urinary tract infection) ICD Codes: N39.0 - Urinary tract infection, site not specified Status: Acute Plan: with sepsis History of frequent UTI, culture + MRSA Antibiotics changed to Daptomycin. Closely monitor renal function and renal dose when appropriate At discharge will need Yang replaced every 30 days. (3) Hyperkalemia ICD Codes: E87.5 - Hyperkalemia Status: Resolved Plan: corrected, monitor (4) Acute metabolic encephalopathy ICD Codes: G93.41 - Metabolic encephalopathy Status: Resolved Plan: most likely due to UTI. Continue to monitor. Slightly worse Needs PT/OT (5) Sepsis ICD Codes: A41.9 - Sepsis, unspecified organism Plan: On antibiotics, ID has followed (Mariza Loya) Problem List: (1) Acute on chronic renal failure ICD Codes: N17.9 - Acute kidney failure, unspecified; N18.9 - Chronic kidney disease, unspecified Status: Acute Plan: He has underlying CKD. This is most likely due to chronic obstructive uropathy. Renal function is slightly better Hypernatremic, start D5W as PO intake is does not seem adequate Avoid nephrotoxic agents. RN to offer oral intake regularly. Repeat labs. (2) UTI (urinary tract infection) ICD Codes: N39.0 - Urinary tract infection, site not specified Status: Acute Plan: with sepsis History of frequent UTI, culture + MRSA Antibiotics changed to Daptomycin. Closely monitor renal function and renal dose when appropriate At discharge will need Yang replaced every 30 days. (3) Hyperkalemia ICD Codes: E87.5 - Hyperkalemia Status: Resolved Plan: corrected, monitor (4) Acute metabolic encephalopathy ICD Codes: G93.41 - Metabolic encephalopathy Status: Resolved Plan: most likely due to UTI. Continue to monitor. Slightly worse Needs PT/OT (5) Sepsis ICD Codes: A41.9 - Sepsis, unspecified organism Plan: On antibiotics, ID has followed Plan patient was seen and examined. Agree with above assessment and plan. (Curt Bal MD) Problem Qualifiers (1) UTI (urinary tract infection): Qualified Codes: N39.0 - Urinary tract infection, site not specified; R31.9 - Hematuria, unspecified Mariza Loya December 03, 2017 09:01 Curt Bal MD December 03, 2017 11:03
--- NOTE | 2017-12-03 09:37 | HHI.PR ---
Subjective Remarks in no acute distress but somewhat lethargic. easily arousable. no fever. denies pain. BP trend noted. d/w the RN. Objective Vitals Vital Signs Date Time Temp Pulse Resp B/P (MAP) Pulse Ox O2 Delivery O2 Flow Rate FiO2 12/03/17 08:00 98.2 93 24 186/84 (118) 96 12/03/17 04:00 Nasal Cannula 2.00 12/03/17 04:00 97.7 93 20 187/82 (117) 100 Manual Cuff/Auscultation 12/03/17 03:58 90 12/03/17 01:10 88 12/03/17 00:20 84 168/88 (114) 12/03/17 00:20 Nasal Cannula 2.00 12/02/17 23:45 90 20 187/90 (122) 12/02/17 23:30 97.5 91 20 172/69 (103) 99 12/02/17 23:15 95 22 166/78 (107) 12/02/17 22:59 84 20 176/80 (112) 12/02/17 22:54 92 20 164/81 (108) 12/02/17 20:00 97.6 89 20 183/80 (114) 99 12/02/17 16:09 97.8 85 19 186/76 (112) 99 12/02/17 12:09 97.8 80 18 178/98 (124) 100 I/O 12/02/17 12/02/17 12/02/17 12/03/17 12/03/17 12/03/17 07:00 15:00 23:00 07:00 15:00 23:00 Intake Total 240 ml 60 ml Output Total 1000 ml 650 ml 1200 ml Balance -1000 ml -410 ml -1140 ml Intake Oral 240 ml 60 ml Output Urine Total 1000 ml 650 ml 1200 ml # Bowel Movements 2 0 Result Diagram: 12/03/17 0505 Imaging Last Impressions Chest X-Ray 11/24/17 0000 Signed Impressions: Service Date/Time: Friday, November 24, 2017 17:55 - CONCLUSION: 1. Cardiomegaly with mild positive fluid balance. Michoacano Dean MD Head CT 11/22/17 1907 Signed Impressions: Service Date/Time: Wednesday, November 22, 2017 19:57 - CONCLUSION: 1. No acute abnormality seen. 2. Mild atrophy. Walter White MD Renal Ultrasound 11/22/17 0000 Signed Impressions: Service Date/Time: Wednesday, November 22, 2017 21:58 - CONCLUSION: 1. Moderate bilateral hydronephrosis with left ureter dilated throughout its course. 2. Small amount of bladder debris. 3. Increased renal echogenicity characteristic of medical renal disease. Isidro Landeros MD Objective Remarks GENERAL: This is a well-nourished, well-developed patient, in no apparent distress. CARDIOVASCULAR: Regular rate and regular rhythm without murmurs, gallops, or rubs. RESPIRATORY: Clear to auscultation. Breath sounds equal bilaterally. No wheezes , rales, or rhonchi. GASTROINTESTINAL: Abdomen soft, non-tender, nondistended. Normal, active bowel sounds MUSCULOSKELETAL: Extremities without clubbing, cyanosis, or edema. NEURO: Alert & Oriented x4 to person, place, time, situation. Moves all ext x4 Medications and IVs Inpatient Medications Acetaminophen/ Hydrocodone Bitart ([place] 5-325 Mg) 1 tab Q4H PRN PO PAIN SCALE 1 TO 10 Last administered on 11/27/17at 17:01; Start 11/26/17 at 19:45 Albuterol Sulfate (Albuterol Neb) 2.5 mg Q2HR NEB PRN NEB WHEEZING; Start 11/24 at 16:45 Albuterol/ Ipratropium (Duoneb Neb) 1 ampule Q4HR NEB INH Last administered on 11/29/17at 03:20; Start 11/26/17 at 20:00; Stop 11/30/17 at 19:59; Status DC Amlodipine Besylate (Norvasc) 5 mg DAILY OG-TUBE Last administered on at 08:17; Start 11/24/17 at 20:15 Baclofen (Lioresal) 5 mg Q12H PO Last administered on 12/03/17at 08:17; Start at 20:00 Calcium Gluconate (Calcium Gluconate Inj) 1 gm ONCE ONCE SLOW IVP Last administered on 11/22/17at 21:41; Start 11/22/17 at 20:30; Stop 11/22/17 at 20:31 ; Status DC Calcium Gluconate 2 gm/Sodium Chloride 120 ml @ 120 mls/hr ONCE ONCE IV Last administered on 11/23/17at 21:59; Start 11/23/17 at 21:30; Stop 11/23/17 at 22:29 ; Status DC Chlorhexidine Gluconate (Chlorhexidine 2% Cloth) 3 pack UNSCH PRN TOP HYGIENIC CARE; Start 11/22/17 at 21:45 Clopidogrel Bisulfate (Plavix) 75 mg DAILY PO Last administered on 12/03/17 08 :17; Start 11/23/17 at 09:00 Daptomycin 700 mg/ Sodium Chloride 100 ml @ 200 mls/hr Q48H IV Last administered on 12/03/17at 08:15; Start 12/03/17 at 09:00 Dextrose 1,000 ml @ 42 mls/hr [id number] IV ; Start 12/03/17 at 09:15 Dextrose (D50w (Syr) Inj) 25 ml ONCE ONCE IV PUSH Last administered on at 22:04; Start 11/23/17 at 21:30; Stop 11/23/17 at 21:31; Status DC Dextrose (D50w (Vial) Inj) 50 ml ONCE ONCE IV PUSH Last administered on at 10:26; Start 11/23/17 at 09:30; Stop 11/23/17 at 09:31; Status DC Duloxetine HCl (Cymbalta Dr) 40 mg DAILY PO Last administered on 12/03/17 08: 17; Start 11/27/17 at 09:00 Famotidine (Pepcid Inj) 10 mg Q12H IV PUSH Last administered on 11/26/17at 23:28 ; Start 11/23/17 at 11:00; Stop 11/27/17 at 11:36; Status DC Famotidine (Pepcid) 10 mg BID PO Last administered on 12/03/17at 08:17; Start at 12:00 Fluticasone/ Vilanterol (Breo Ellipta 100-25 Inh) 1 puff DAILY INH Last administered on 12/03/17at 08:15; Start 11/23/17 at 09:00 Furosemide (Lasix Inj) 20 mg ONCE ONCE IV PUSH Last administered on 11/26/17at 20:26; Start 11/26/17 at 19:30; Stop 11/26/17 at 19:31; Status DC Gabapentin (Neurontin) 100 mg DAILY PO Last administered on 12/03/17 08:16; Start 11/26/17 at 19:45 Heparin Sodium (Porcine) (Heparin Inj) 5,000 units Q12H SQ Last administered on 12/02/17at 22:43; Start 11/22/17 at 22:00 Hydralazine HCl (Apresoline Inj) 10 mg Q6H PRN IV PUSH SEE LABEL COMMENTS Last administered on 12/02/17at 22:54; Start 12/02/17 at 22:30 Insulin Aspart (NovoLOG SUPPLEMENTAL SCALE) 1 Q4H SQ ; Start 11/22/17 at 23:00; Stop 11/29/17 at 11:39; Status DC Insulin Human Regular (NovoLIN R INJ) 10 units ONCE ONCE IV PUSH Last administered on 11/23/17at 22:10; Start 11/23/17 at 21:30; Stop 11/23/17 at 21:38 ; Status DC Labetalol HCl (Trandate Inj) 10 mg Q4H PRN IV PUSH SBP >165 Last administered on 11/25/17at 21:29; Start 11/24/17 at 12:15; Stop 12/02/17 at 22:28; Status DC Melatonin (Melatonin) 5 mg ONCE ONCE PO Last administered on 11/27/17 21:58; Start 11/27/17 at 21:45; Stop 11/27/17 at 21:46; Status DC Miscellaneous (Pill Splitter) 1 ea UNSCH PRN OTHER SEE LABEL COMMENTS Last administered on 11/29/17at 21:06; Start 11/26/17 at 20:00 Miscellaneous Information ([facility] Nursing Information) 1 [id number] XX Last administered on 11/22/17at 21:45; Start 11/22/17 at 21:45 Pharmacy Profile Note 0 ml @ 0 mls/hr UNSCH OTHER ; Start 11/27/17 at 09:00; Stop 12/02/17 at 13:41; Status DC Piperacillin Sod/ Tazobactam Sod 50 ml @ 100 mls/hr Q6H IV Last administered on 11/27/17at 11:57; Start 11/26/17 at 11:00; Stop 11/27/17 at 15:20; Status DC Sodium Polystyrene Sulfonate (Kayexalate Liq) 15 gm ONCE ONCE PO Last administered on 11/23/17at 22:03; Start 11/23/17 at 21:30; Stop 11/23/17 at 21:38 ; Status DC Sodium Bicarbonate (Sodium Bicarbonate 8.4% Inj) 50 meq ONCE ONCE IV PUSH Last administered on 11/23/17at 22:04; Start 11/23/17 at 21:30; Stop 11/23/17 at 21:38; Status DC Sodium Chloride 1,000 ml @ 83 mls/hr Q12H3M IV Last administered on 11/30/17at 21:13; Start 11/28/17 at 16:45; Stop 12/03/17 at 09:17; Status DC Sodium Chloride (NS Flush) 2 ml UNSCH PRN IV FLUSH FLUSH AFTER USING IV ACCESS Last administered on 12/02/17at 22:54; Start 11/22/17 at 19:15 Tamsulosin HCl (Flomax) 0.4 mg HS PO Last administered on 12/02/17at 22:43; Start 11/23/17 at 21:00 Vancomycin HCl 1000 mg/Sodium Chloride 250 ml @ 250 mls/hr ONCE ONCE IV Last administered on 11/22/17at 22:37; Start 11/22/17 at 22:00; Stop 11/22/17 at 22:59 ; Status DC Vancomycin HCl 1500 mg/Sodium Chloride 515 ml @ 257.5 mls/ hr ONCE ONCE IV Last administered on 12/01/17at 18:43; Start 12/01/17 at 15:00; Stop 12/02/17 at 13:41; Status DC Vancomycin HCl 2000 mg/Sodium Chloride 520 ml @ 250 mls/hr ONCE ONCE IV Last administered on 11/27/17at 09:54; Start 11/27/17 at 10:00; Stop 11/27/17 at 12:04 ; Status DC A/P Problem List: (1) Altered mental status ICD Code: R41.82 - Altered mental status, unspecified Status: Acute (2) UTI (urinary tract infection) ICD Code: N39.0 - Urinary tract infection, site not specified Status: Acute (3) Acute on chronic renal failure ICD Code: N17.9 - Acute kidney failure, unspecified; N18.9 - Chronic kidney disease, unspecified Status: Acute (4) Hyperkalemia ICD Code: E87.5 - Hyperkalemia Status: Resolved (5) Acute metabolic encephalopathy ICD Code: G93.41 - Metabolic encephalopathy Status: Resolved (6) HTN (hypertension) ICD Code: I10 - Essential (primary) hypertension Status: Acute (7) Obesity ICD Code: E66.9 - Obesity, unspecified Status: Acute (8) CHF (congestive heart failure) ICD Code: I50.9 - Heart failure, unspecified Status: Acute (9) CAD (coronary artery disease) ICD Code: I25.10 - Atherosclerotic heart disease of [place] coronary artery without angina pectoris Status: Acute Assessment and Plan Acute metabolic encephalopathy- still mildly lethargic today- check ABG -Altered mentation was felt to be secondary to sepsis, now back to baseline. - CT brain 11/22 - negative -EEG triphasic waves c/w severe diffuse encephalopathy. Could increase risk for seizure. No clinical seizure activity and mental status now at baseline. Consider neurology consult for anticonvulsant if there is clinical seizure or if mental status worsens. - hold Baclofen, Neurontin and Cymbalta for now. -consult neurology. -[place] prn. History of COPD -Nasal cannula oxygen to keep SaO2 >90% -neb treatment. -Continue Breo Ellipta History of coronary artery disease History of cardiac arrest Continue Plavix HTN not well controlled. hold Norvasc- start on Procardia- continue to monitor. -Hold lisinopril due to worsening renal failure. h/o Dysphagia - Now able to swallow and diet advanced. - famotidine Acute on chronic kidney disease Acute obstructive uropathy. Hyperkalemia hypernatremia Type 2 diabetes - Yang in place. - Continuing flomax 0.4 mg po qhs that he is on chronically. Will need urology followup as outpatient, seen as inpatient but no additional therapy recommended. Yang to remain in place until f/u. -started on gentle IV hydration with D5W -Nephrology Dr. Lima following. -Renal ultrasound shows bilateral hydronephrosis. UTI Severe sepsis MRSA bacteremia -Follow-up on blood and urine culture -IV vancomycin 1 GM x1 11/22 - pharmacy consulted for Vanco dosing. -ID f/u appreciated; needs Vanco for two weeks from the first negative blood culture. -echo with EF 45%- [facility]. He does not have an advanced directive [facility] file at the [facility]. There is no family contact. There is contact information for a friend named Sarah Pratt who was a neighbor but she states she was never formally designated his healthcare surrogate. She was helping him with grocery shopping and finances when he was living at home. She states he has no family. She states his closest friend who used to take him to doctor appointments was Eran Pinky (spelling unknown) , . Patient is currently not capacitated for medical decision making and it is unclear who would make medical decisions on his behalf. Palliative care following. Discharge Planning lethargic- consulted neurology- not ready for discharge today. Problem Qualifiers (1) Altered mental status: Qualified Codes: R41.82 - Altered mental status, unspecified (2) UTI (urinary tract infection): Qualified Codes: N39.0 - Urinary tract infection, site not specified; R31.9 - Hematuria, unspecified Felipe Gonzalez MD December 03, 2017 09:37
[2017-12-03] MEDS: hydrALAZINE HCL 20 MG/ML VIAL IV PUSH PRN (09:53)
[2017-12-03] MEDS: DEXTROSE 5% IN WATE 1000ML INJ 1,000 ML IV SCH (09:53)
[2017-12-03] MEDS: HEPARIN SODIUM - SQ 10,000 UNITS/ML VIAL SQ SCH ×2 (09:54→22:15)
[2017-12-03] MEDS: NIFEdipine 30 MG SUSTAINED RELEASE TAB PO SCH (11:05)
--- NOTE | 2017-12-03 15:17 | MB ---
cc: Enoch Chairez MD, PhD DATE: 12/03/2017 REASON FOR CONSULTATION: Encephalopathy. HISTORY OF PRESENT ILLNESS: Mr. Rosenberg is a 77-year-old man who has acute kidney injury, chronic kidney disease, sepsis. He has been very lethargic and very confused. No definite focal symptoms have been identified. PAST MEDICAL HISTORY: Remarkable for coronary artery disease, CHF, COPD, chronic kidney disease stage IIIA, GI bleed, cardiac arrest in 2014, pacemaker, diabetes. CURRENT MEDICATIONS: 1. Pepcid. 2. Apresoline. 3. [place] as needed. 4. Albuterol. 5. Flomax. 6. Plavix 75 mg daily. 7. Breo Ellipta. NEUROLOGICAL EXAM: VITAL SIGNS: Blood pressure is 106/54, pulse 97, respiratory rate 24. HIGHER CORTICAL FUNCTIONS: Lethargic, but arousable, disoriented to date and place. He follows only simple commands. Cranial nerves are intact. MOTOR EXAM: He has diffuse weakness, but no definite focal weakness. Reflexes are 2+ symmetric. There is no Babinski sign present. CT of the brain, no acute changes identified. LABORATORY DATA: White count 6900, hemoglobin is 7.8, hematocrit 23.9%, platelet count 252,000. Sodium is 148, potassium is 3.8, chloride 116, CO2 20.8, BUN is 34, creatinine 3.24. INR 1.1, APTT 34.5. Urinalysis, the pH is 7.5, specific gravity 1.012. WBCs are 14. IMPRESSION: Probable metabolic encephalopathy from sepsis and renal insufficiency. Enoch Chairez MD, PhD ABDIFATAH/DL , 03:06 PM , 03:16 PM
--- NOTE | 2017-12-03 16:05 | HHI.HCPN ---
Reason for visit a. To assist with evaluation and management of symptoms including: pain, debility, encephalopathy b. To assist medical decision maker(s) with: better understanding of current medical conditions; weighing benefits/burdens of medical treatment options; making medical treatment decisions. . (Margarita Frank) Subjective/Interval History Mr. Rosenberg is a 77 year old male admitted 11/22/17 for management hyperkalemia, acute renal failure, UTI and altered mental status. Follow-up visit for symptom management of pain, debility and encephalopathy. Patient was seen and assessed in room 1433. He remains lethargic today, although alittle more alert today than yesterday. Patient arouses to verbal stimuli. Responds to questions with brief answers and is able to follow simple 1 step commands. Neurology was consulted; Dr. Chairez evaluated the patient ( neurology) evaluated the patient and feels his altered mental status is probably metabolic encephalopathy from sepsis and renal insufficiency. Afebrile. Urine culture from 11/25/2017 + MRSA. Echocardiogram was negative for vegetation. Patient started on daptomycin; infectious disease following. Recent lab work reviewed from 12/03/2017: = Sodium: 148, potassium 3.8, chloride 116, carbon dioxide 20.8, glucose 94, calcium 9.0 = BUN: 34, creatinine 3.24, GFR 19 Ongoing aggressive goals at this time. Patient has designated friends (Eran Guerrier and Macy Elliott) as his primary and alternate healthcare surrogate decision makers. Likely discharge back to [facility] when medically stable. . Family/friend interactions See interval history . (Margarita Frank) Advance Directives Health Care Surrogate: Copy in medical record (Margarita Frank) Advance Directive Specifics Date completed: 11/27/2017 . Health Care Surrogate(s): Healthcare designation form was redone on 11/27/2017. Designating Eran Guerrier as the primary healthcare surrogate decision maker and Macy Elliott as the alternate healthcare surrogate decision maker. . Documented care wishes: Patient refused to complete living will on 11/27/2017. . . (Margarita Frank) Objective Vital Signs Date Time Temp Pulse Resp B/P (MAP) Pulse Ox O2 Delivery O2 Flow Rate FiO2 12/03/17 12:00 98.3 97 24 169/74 (105) 98 5/29/18 11:00 20 157/73 (101) 12/03/17 09:00 Nasal Cannula 2.00 12/03/17 08:00 98.2 93 24 186/84 (118) 96 12/03/17 04:00 Nasal Cannula 2.00 12/03/17 04:00 97.7 93 20 187/82 (117) 100 Manual Cuff/Auscultation 12/03/17 03:58 90 12/03/17 01:10 88 12/03/17 00:20 84 168/88 (114) 12/03/17 00:20 Nasal Cannula 2.00 12/02/17 23:45 90 20 187/90 (122) 12/02/17 23:30 97.5 91 20 172/69 (103) 99 12/02/17 23:15 95 22 166/78 (107) 12/02/17 22:59 84 20 176/80 (112) 12/02/17 22:54 92 20 164/81 (108) 12/02/17 20:00 97.6 89 20 183/80 (114) 99 12/02/17 16:09 97.8 85 19 186/76 (112) 99 Intake & Output 12/03/17 12/03/17 07:00 19:00 Intake Total 60 ml Output Total 1200 ml Balance -1140 ml Intake Oral 60 ml Output Urine Total 1200 ml # Bowel Movements 0 . Physical Exam CONSTITUTIONAL/GENERAL: This is an adequately nourished patient, in no apparent distress. TUBES/LINES/DRAINS: urinary cath, PIV, nasal cannula SKIN: No jaundice, rashes, or lesions. Ecchymoses on upper extremities. No wounds seen anteriorly. Skin temperature appropriate. Not diaphoretic. HEAD: Atraumatic. Normocephalic. EYES: Pupils equal and round and reactive. Extraocular motions intact. No scleral icterus. No injection or drainage. Fundi not examined. ENT: Hearing grossly normal. Nose without bleeding or purulent drainage. Throat without visible erythema, exudates, masses, or lesions. NECK: Trachea midline. Supple, nontender. No palpable thyroid enlargement or nodularity. CARDIOVASCULAR: Regular rate and rhythm without murmurs, gallops, or rubs. No JVD. Peripheral pulses symmetric. RESPIRATORY/CHEST: Symmetric, unlabored respirations. Clear to auscultation. Breath sounds diminished bilaterally. No accessory muscle usage. No wheezes, rales, or rhonchi. GASTROINTESTINAL: Abdomen soft, non-tender, nondistended. No guarding. Bowel sounds present. GENITOURINARY: Without palpable bladder distension. Yang catheter draining cloudy, yellow urine. MUSCULOSKELETAL: Extremities without clubbing, cyanosis, or edema. No mottling or clubbing. LYMPHATICS: No palpable cervical or supraclavicular adenopathy. NEUROLOGICAL: Lethargic. Arouses briefly to verbal and light tactile stimuli. Does not follow commands. PSYCHIATRIC: No obvious anxiety/depression. No apparent hallucinations or other psychotic thought process. . (Margarita Frank) Diagnostic Tests Laboratory Laboratory Tests Test 12/01/17 07:23 12/02/17 06:40 12/02/17 16:47 12/03/17 05:05 Blood Urea Nitrogen 35 MG/DL (7-18) 34 MG/DL (7-18) Creatinine 3.48 MG/DL (0.60-1.30) 3.24 MG/DL (0.60-1.30) Random Glucose 76 MG/DL (74-106) 94 MG/DL (74-106) Calcium Level 8.5 MG/DL (8.5-10.1) 9.0 MG/DL (8.5-10.1) Sodium Level 146 MEQ/L (136-145) 148 MEQ/L (136-145) Potassium Level 4.2 MEQ/L (3.5-5.1) 3.8 MEQ/L (3.5-5.1) Chloride Level 115 MEQ/L (98-107) 116 MEQ/L (98-107) Carbon Dioxide Level 21.6 MEQ/L (21.0-32.0) 20.8 MEQ/L (21.0-32.0) Anion Gap 9 MEQ/L (5-15) 11 MEQ/L (5-15) Estimat Glomerular Filtration Rate 17 ML/MIN (>89) 19 ML/MIN (>89) Random Vancomycin Level 30.6 COMMENT 28.4 COMMENT Blood Gas Puncture Site RT RADIAL Blood Gas Patient Temperature 98.6 Blood Gas HCO3 22 mmol/L (22-26) Blood Gas Base Excess -3.8 mmol/L (-2-2) Blood Gas Oxygen Saturation 96 % (90-100) Arterial Blood pH 7.30 (7.380-7.420) Arterial Blood Partial Pressure CO2 45 mmHg (38-42) Arterial Blood Partial Pressure O2 103 mmHg (61-120) Arterial Blood Oxygen Content 11.4 Vol % (12.0-20.0) Arterial Blood Carboxyhemoglobin 1.6 % (0-4) Arterial Blood Methemoglobin 1.2 % (0-2) Blood Gas Hemoglobin 8.3 G/DL (12.0-16.0) Oxygen Delivery Device NASAL CANNULA Blood Gas Liter Flow 2 L/M . (Margarita Frank) Result Diagram: 12/03/17 3296 Assessment and Plan Disease Oriented Problem List: (1) UTI (urinary tract infection) (2) Acute on chronic renal failure (3) Hyperkalemia (4) Acute metabolic encephalopathy (5) HTN (hypertension) (6) CHF (congestive heart failure) (7) CAD (coronary artery disease) (8) Obesity Symptom Scale: (1) Pain 0-10 Scale: 0 Comment: Patient denies pain; shows no signs or symptoms of nonverbal pain. . (2) Encephalopathy 0-10 Scale: 0 Comment: Resolved 11/27/2017; patient noted to be increasingly lethargic in recent days. He remains lethargic today 12/03/17, although alittle more alert today than yesterday. Patient arouses to verbal stimuli. Responds to questions with brief answers and is able to follow simple 1 step commands. Neurology was consulted; Dr. Chairez evaluated the patient (neurology) evaluated the patient and feels his altered mental status is probably metabolic encephalopathy from sepsis and renal insufficiency. . (3) Debility 0-10 Scale: Unable to quantify Pertinent Non-Medical Issues Psychosocial: Patient was in [place], [place]. He states he had no siblings. He moved to [place] while working with the [employer]. 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 He was 3 times (Blanka, Dayanara and Brisa aka Santosh). He states he had 4 children (Kinjal, Pedro Luis, Russel and Lee ) who were born in [place], [place]. The patient states his children were taken away from there mother by the state, and he does not know where they ended up. Spiritual: Roman Catholic fabien Legal: Patient's friend (Eran Guerrier) has been designated as the primary healthcare surrogate decision maker; Macy Elliott is designated as the alternate healthcare surrogate decision maker. Ethical issues impacting care: None known . Important Contacts Eran Guerrier,friend: [phone] Macy Elliott, friend: [phone] Sarah Prtat, friend: [phone] . Prognosis Patient is a 77 year old male with a complex medical history that includes CAD, previous cardiac arrest, previous urosepsis/recurrent UTI, GI bleed, CKD, COPD, CHF, hypertension and altered mental status. H has been skilled nursing resident since an acute decline that began in March,. Given the patient's advanced age, recent acute decline and complex medical history, it is likely he will continue to experience setbacks and complications with associated rehospitalization. His overall prognosis is poor. . Code Status: Full Code Plan * FULL CODE * Decision-making: Patient has insight and judgment toward his medical conditions at this time. Healthcare surrogate designation form was redone today 11/27/2017 and designates friend (Eran Guerrier) as the primary healthcare surrogate decision maker and (Macy Elliott) as the alternate healthcare surrogate decision maker. Palliative care spoke to both individuals who verbalizes willingness to act in this role * AGGRESSIVE GOALS. Patient indicates he "wants everything" including intubation with mechanical ventilation as well as tracheostomy/PEG tube placement if it were indicated. * Discussed medical treatment goals with RN (Makayla) as well as case management * Symptom managementdebility: Per EMR, patient previously stated he was living in dependently and fully functioning prior to his initial hospitalization at [facility] in March,. The patient now lives at [facility]. He states he will likely be unable to return to his home secondary to his continued decline. Patient previously reported progressively worsening fatigue and weight loss. He states he has become more weak and has had worsening shortness of breath. * Symptom managementencephalopathy: Presented to [facility] ED on 11/22/17 via EMS for evaluation of altered mental status. Per report, patient had become increasingly confused and somnolent over the previous 24-48 hours. He is communicative at baseline but would not answer questions or follow commands on exam. CT brain showed mild atrophy; no acute abnormalities were seen. Symptoms of encephalopathy resolved 11/27/2017; however has become increasingly lethargic and recent days. He remains lethargic today, although alittle more alert today than yesterday. Patient arouses to verbal stimuli. Responds to questions with brief answers and is able to follow simple 1 step commands. Neurology was consulted; Dr. Chairez evaluated the patient (neurology) evaluated the patient and feels his altered mental status is probably metabolic encephalopathy from sepsis and renal insufficiency. * Palliative care will continue to follow patient throughout his hospitalization to establish trust, assist with symptom management and clarification of medical treatment goals. . (Margarita Frank) Attestation To help prompt me to consider important information that might be impacting today's encounter and assessment, information from prior notes written by myself or my colleagues may have been "brought forward" into today's note. My signature on this note, however, is an attestation that I personally performed the exam, history, and/or decision-making noted today, and, unless otherwise indicated, the interactions with patient, family, and staff as well as the review of records all occurred today. I also attest that the listed assessment and stated plan reflect my best clinical judgment today based on the combination of historical information, prior notes, and today's exam/ interactions. When time spent is documented, it refers only to time spent today by the signer, or if indicated, combined time spent today by collaborating physician/nurse practitioner. . (Margarita Frank) Collaborating MD Comments Chart reviewed. 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 Above UTILITIES EQUIPMENT REPAIRER note reviewed and I concur. . (Robert Pizarro MD) Margarita Frank December 03, 2017 16:05 Robert Pizarro MD Dec 21, 2017 15:36
--- NOTE | 2017-12-03 16:15 | HHI.IDPN ---
Subjective Subjective Remarks creatinine and vbanco levels gradually going down he is much more lethargic today no diarrhea no fever Antibiotics vancomycin Past Medical History pacer Allergies: Coded Allergies: Influenza Virus Vaccines (Unverified Allergy, Unknown, 02/19/17) cephalexin (Unverified Allergy, Unknown, 02/19/17) levofloxacin (Unverified Allergy, Unknown, 02/19/17) moxifloxacin (Unverified Allergy, Unknown, 02/19/17) Objective . Vital Signs Date Time Temp Pulse Resp B/P (MAP) Pulse Ox O2 Delivery O2 Flow Rate FiO2 12/03/17 12:00 98.3 97 24 169/74 (105) 98 12/03/17 11:00 20 157/73 (101) 12/03/17 09:00 Nasal Cannula 2.00 12/03/17 08:00 98.2 93 24 186/84 (118) 96 12/03/17 04:00 Nasal Cannula 2.00 12/03/17 04:00 97.7 93 20 187/82 (117) 100 Manual Cuff/Auscultation 12/03/17 03:58 90 12/03/17 01:10 88 12/03/17 00:20 84 168/88 (114) 12/03/17 00:20 Nasal Cannula 2.00 12/02/17 23:45 90 20 187/90 (122) 12/02/17 23:30 97.5 91 20 172/69 (103) 99 12/02/17 23:15 95 22 166/78 (107) 12/02/17 22:59 84 20 176/80 (112) 12/02/17 22:54 92 20 164/81 (108) 12/02/17 20:00 97.6 89 20 183/80 (114) 99 . Laboratory Tests Test 12/03/17 05:05 Blood Urea Nitrogen 34 MG/DL Creatinine 3.24 MG/DL Random Glucose 94 MG/DL Calcium Level 9.0 MG/DL Sodium Level 148 MEQ/L Potassium Level 3.8 MEQ/L Chloride Level 116 MEQ/L Carbon Dioxide Level 20.8 MEQ/L Anion Gap 11 MEQ/L Estimat Glomerular Filtration Rate 19 ML/MIN Imaging Last Impressions Chest X-Ray 11/24/17 0000 Signed Impressions: Service Date/Time: Friday, November 24, 2017 17:55 - CONCLUSION: 1. Cardiomegaly with mild positive fluid balance. Michoacano Dean MD Head CT 11/22/17 1907 Signed Impressions: Service Date/Time: Wednesday, November 22, 2017 19:57 - CONCLUSION: 1. No acute abnormality seen. 2. Mild atrophy. Walter White MD Renal Ultrasound 11/22/17 0000 Signed Impressions: Service Date/Time: Wednesday, November 22, 2017 21:58 - CONCLUSION: 1. Moderate bilateral hydronephrosis with left ureter dilated throughout its course. 2. Small amount of bladder debris. 3. Increased renal echogenicity characteristic of medical renal disease. Isidro Landeros MD Physical Exam ONSTITUTIONAL/GENERAL: This is an adequately nourished patient, in no apparent distress. sitting in bed comfortabl;e TUBES/LINES/DRAINS: SKIN: No jaundice, rashes, or lesions. Skin temperature appropriate. Not diaphoretic. CARDIOVASCULAR: Regular rate and rhythm without murmurs, gallops, or rubs. No JVD. Peripheral pulses symmetric. Pacer in place R chest - OK RESPIRATORY/CHEST: Symmetric, unlabored respirations. Clear to auscultation. Breath sounds equal bilaterally. No wheezes, rales, or rhonchi. GASTROINTESTINAL: Abdomen soft, non-tender, nondistended. No hepato-splenomegaly , or palpable masses. No guarding. Bowel sounds present. GENITOURINARY: Without palpable bladder distension. Roman catheter in place with clear yellow urine MUSCULOSKELETAL: Extremities without clubbing, cyanosis, or edema. No joint tenderness or effusion noted. No calf tenderness. No mottling or clubbing. Well healed R hallux amputation site NEUROLOGICAL: lethargic, but easily arousable Motor and sensory grossly within normal limits. Follows commands. . Moves all extremities. PSYCHIATRIC: No obvious anxiety/depression. no apparent hallucinations or other psychotic thought process. Assessment & Plan Remarks Low grade MRSA bacteremia - pt has pacer Sepsis UTI, MRSA Obstructive uropathy - resolved with roman ARF - improving - vanco is off - levels are still high, but slightly improved DM now with MS change fu creatinine cont dapto n to complete 2 weeks of tx OK to dc with IV abx if neg BC repeat BC 2 weeks after abx completed repeat lac acid, CBC and blood clx Fanny Phelps MD December 03, 2017 16:14
[2017-12-03] MEDS: TAMSULOSIN HCL 0.4 MG CAP PO SCH (22:14)
[2017-12-04] VITALS (11 sets, daily range): BP systolic 132–151; BP diastolic 59–68; PULSE 67–92; RESP 16–20; TEMP 97.8–98.8; O2SAT 92–100
[2017-12-04] MEDS: CHLORHEXIDINE GLUCONATE 2 % 1 PACK (2 CLOTHS) TOP SCH (03:21)
[2017-12-04 07:08] LABS: AUTOMATED NEUTROPHIL # 3.7 TH/MM3 (1.8-7.7); BASOPHIL % 0.7 % (0.0-2.0); EOSINOPHIL # 0.3 TH/MM3 (0-0.4); EOSINOPHIL % 5.8 % (0.0-4.0); HEMATOCRIT 22.6 % (39.0-51.0); HEMOGLOBIN 7.4 GM/DL (13.0-17.0); LYMPHOCYTE # 0.4 TH/MM3 (1.0-4.8); MEAN CELL VOLUME 85.7 FL (80.0-100.0); MEAN CORPUSCULAR HEMOGLOBIN 27.9 PG (27.0-34.0); MEAN CORPUSCULAR HGB CONC 32.6 % (32.0-36.0); MEAN PLATELET VOLUME 5.8 FL (7.0-11.0); MONOCYTE # 0.5 TH/MM3 (0-0.9); NEUT % 74.5 % (16.0-70.0); PLATELET COUNT 154 TH/MM3 (150-450); RED BLOOD COUNT 2.64 MIL/MM3 (4.50-5.90); RED CELL DISTRIBUTION WIDTH 16.2 % (11.6-17.2)
[2017-12-04] MEDS: CLOPIDOGREL 75 MG TAB PO SCH (08:46)
[2017-12-04] MEDS: HEPARIN SODIUM - SQ 10,000 UNITS/ML VIAL SQ SCH ×2 (08:46→22:19)
[2017-12-04] MEDS: FAMOTIDINE 20 MG TAB PO SCH ×2 (08:46→22:19)
[2017-12-04] MEDS: NIFEdipine 30 MG SUSTAINED RELEASE TAB PO SCH (08:46)
[2017-12-04] MEDS: FLUTICASONE 100 MCG/VILANTEROL 25 MCG INHALER INH SCH (08:47)
[2017-12-04] MEDS: DEXTROSE 5% IN WATE 1000ML INJ 1,000 ML IV SCH (08:47)
--- NOTE | 2017-12-04 09:20 | HHI.NPPN ---
Subjective Renal Failure: Chronic, Acute Interval History Slightly more alert today. He was evaluated by neurology. (Mariza Loya) Objective Data Data Vital Signs Date Time Temp Pulse Resp B/P (MAP) Pulse Ox O2 Delivery O2 Flow Rate FiO2 12/04/17 08:44 98.2 88 18 151/68 (95) 98 12/04/17 04:07 82 12/04/17 04:00 97.8 92 19 132/62 (85) 96 12/04/17 04:00 Nasal Cannula 2.00 12/04/17 00:32 92 12/04/17 00:00 98.1 90 18 134/63 (86) 94 12/04/17 00:00 Nasal Cannula 2.00 12/03/17 20:00 98.1 93 16 151/67 (95) 95 12/03/17 20:00 Nasal Cannula 2.00 12/03/17 19:49 93 12/03/17 16:00 98.0 96 24 136/67 (90) 100 12/03/17 12:00 98.3 97 24 169/74 (105) 98 12/03/17 12:00 95 12/03/17 11:00 20 157/73 (101) (Mariza Loya) -: 12/04/17 0615 12/03/17 0505 Microbiology 12/03/17 Aerobic Blood Culture, Received Pending 12/03/17 Anaerobic Blood Culture, Received Pending 12/03/17 Aerobic Blood Culture, Received Pending 12/03/17 Anaerobic Blood Culture, Received Pending Tubes & Lines: Roman (Mariza Loya) Physical Exam General Appearance: Well Developed, Well Nourished, No Acute Distress, Comfortable, Obese (Mariza Loya) Neck Neck Exam: Neck Supple (Mariza Loya) Pulmonary Resp Exam: Clear Bilaterally, Breath Sounds Equal, Decreased Bases (Mariza Loya) Cardiology CV Exam: Regular, Normal Sinus Rhythm (Mariza Loya) Gastrointestinal/Abdomen GI Exam: Soft, Non-Tender, Bowel Sounds Present (Mariza Loya) Genitourinary Exam: Clear Urine (Mariza Loya) Musculoskeletal MS Exam: Joints Intact, Normal Tone (Mariza Loya) Integumentary Skin Exam: Clear, Warm, Dry, Intact (Mariza Loya) Extremeties Extremities Exam: No Edema, Pedal Pulses Palpable (Mariza Loya) Neurologic Neuro Exam: Awake, Speech Clear, Stuporous Neuro Remarks lethargic (Mariza Loya) Psychiatric Psych Exam: Appropriate Responses (Mariza Loya) Assessment/Plan Discussed Condition With: Patient Electrolyte Assessment: Hypernatremia, Metabolic Acidosis Problem List: (1) Acute on chronic renal failure ICD Codes: N17.9 - Acute kidney failure, unspecified; N18.9 - Chronic kidney disease, unspecified Status: Acute Plan: He has underlying CKD. This is most likely due to chronic obstructive uropathy. Renal function had improved, repeat labs in process. On IVF, D5W as he appears dry and is lethargic, PO intake may not be adequate Avoid nephrotoxic agents. Follow labs daily Monitor urine output, currently has roman, is non oliguric. (2) UTI (urinary tract infection) ICD Codes: N39.0 - Urinary tract infection, site not specified Status: Acute Plan: with sepsis History of frequent UTI, culture + MRSA Antibiotics include Daptomycin. Closely monitor renal function and renal dose when appropriate At discharge will need Roman replaced every 30 days. (3) Acute metabolic encephalopathy ICD Codes: G93.41 - Metabolic encephalopathy Status: Resolved Plan: Neurology has evaluated, most likely due to ARF/UTI/sepsis Continue to monitor. Slightly better today Needs PT/OT (4) Sepsis ICD Codes: A41.9 - Sepsis, unspecified organism Plan: On antibiotics, ID has followed (5) Hyperkalemia ICD Codes: E87.5 - Hyperkalemia Status: Resolved Plan: corrected, monitor (Mariza Loya) Plan patient was seen and examined. Renal function is better, hypernatremia is worse. Continue D5W. (Curt Bal MD) Problem Qualifiers (1) UTI (urinary tract infection): Qualified Codes: N39.0 - Urinary tract infection, site not specified; R31.9 - Hematuria, unspecified Mariza Loya December 04, 2017 09:20 Curt Bal MD December 04, 2017 09:27
--- NOTE | 2017-12-04 10:02 | HHI.PR ---
Subjective Remarks in no acute distress. is more alert today. denies pain. no fever. Objective Vitals Vital Signs Date Time Temp Pulse Resp B/P (MAP) Pulse Ox O2 Delivery O2 Flow Rate FiO2 12/04/17 08:44 98.2 88 18 151/68 (95) 98 12/04/17 04:07 82 12/04/17 04:00 97.8 92 19 132/62 (85) 96 12/04/17 04:00 Nasal Cannula 2.00 12/04/17 00:32 92 12/04/17 00:00 98.1 90 18 134/63 (86) 94 12/04/17 00:00 Nasal Cannula 2.00 12/03/17 20:00 98.1 93 16 151/67 (95) 95 12/03/17 20:00 Nasal Cannula 2.00 12/03/17 19:49 93 12/03/17 16:00 98.0 96 24 136/67 (90) 100 12/03/17 12:00 98.3 97 24 169/74 (105) 98 12/03/17 12:00 95 12/03/17 11:00 20 157/73 (101) I/O 12/03/17 12/03/17 12/03/17 12/04/17 12/04/17 12/04/17 07:00 15:00 23:00 07:00 15:00 23:00 Intake Total 60 ml 200 ml 947 ml Output Total 1200 ml 1300 ml 500 ml Balance -1140 ml -1100 ml 447 ml Intake Oral 60 ml 200 ml 400 ml IV Total 547 ml Output Urine Total 1200 ml 1300 ml 500 ml # Bowel Movements 0 1 Result Diagram: 12/04/17 0615 12/03/17 0505 Imaging Last Impressions Chest X-Ray 11/24/17 0000 Signed Impressions: Service Date/Time: Friday, November 24, 2017 17:55 - CONCLUSION: 1. Cardiomegaly with mild positive fluid balance. Michoacano Dean MD Head CT 11/22/17 1907 Signed Impressions: Service Date/Time: Wednesday, November 22, 2017 19:57 - CONCLUSION: 1. No acute abnormality seen. 2. Mild atrophy. Walter White MD Renal Ultrasound 11/22/17 0000 Signed Impressions: Service Date/Time: Wednesday, November 22, 2017 21:58 - CONCLUSION: 1. Moderate bilateral hydronephrosis with left ureter dilated throughout its course. 2. Small amount of bladder debris. 3. Increased renal echogenicity characteristic of medical renal disease. Isidro Lanedros MD Objective Remarks GENERAL: This is a well-nourished, well-developed patient, in no apparent distress. CARDIOVASCULAR: Regular rate and regular rhythm without murmurs, gallops, or rubs. RESPIRATORY: Clear to auscultation. Breath sounds equal bilaterally. No wheezes , rales, or rhonchi. GASTROINTESTINAL: Abdomen soft, non-tender, nondistended. Normal, active bowel sounds MUSCULOSKELETAL: Extremities without clubbing, cyanosis, or edema. NEURO: Alert & Oriented x4 to person, place, time, situation. Moves all ext x4 Medications and IVs Inpatient Medications Acetaminophen/ Hydrocodone Bitart ([place] 5-325 Mg) 1 tab Q4H PRN PO PAIN SCALE 1 TO 10 Last administered on 11/27/17 17:01; Start 11/26/17 at 19:45 Albuterol Sulfate (Albuterol Neb) 2.5 mg Q2HR NEB PRN NEB WHEEZING; Start 11/24 at 16:45 Albuterol/ Ipratropium (Duoneb Neb) 1 ampule Q4HR NEB INH Last administered on 11/29/17 03:20; Start 11/26/17 at 20:00; Stop 11/30/17 at 19:59; Status DC Amlodipine Besylate (Norvasc) 5 mg DAILY OG-TUBE Last administered on 08:17; Start 11/24/17 at 20:15; Status Future Hold Baclofen (Lioresal) 5 mg Q12H PO Last administered on 12/03/17 08:17; Start at 20:00; Status Future Hold Calcium Gluconate (Calcium Gluconate Inj) 1 gm ONCE ONCE SLOW IVP Last administered on 11/22/17 21:41; Start 11/22/17 at 20:30; Stop 11/22/17 at 20:31 ; Status DC Calcium Gluconate 2 gm/Sodium Chloride 120 ml @ 120 mls/hr ONCE ONCE IV Last administered on 11/23/17at 21:59; Start 11/23/17 at 21:30; Stop 11/23/17 at 22:29 ; Status DC Chlorhexidine Gluconate (Chlorhexidine 2% Cloth) 3 pack UNSCH PRN TOP HYGIENIC CARE; Start 11/22/17 at 21:45 Clopidogrel Bisulfate (Plavix) 75 mg DAILY PO Last administered on 12/04/17 08 :46; Start 11/23/17 at 09:00 Daptomycin 700 mg/ Sodium Chloride 100 ml @ 200 mls/hr Q48H IV Last administered on 12/03/17 08:15; Start 12/03/17 at 09:00 Dextrose 1,000 ml @ 42 mls/hr [id number] IV Last administered on 12/04/17 08:47 ; Start 12/03/17 at 09:15 Dextrose (D50w (Syr) Inj) 25 ml ONCE ONCE IV PUSH Last administered on at 22:04; Start 11/23/17 at 21:30; Stop 11/23/17 at 21:31; Status DC Dextrose (D50w (Vial) Inj) 50 ml ONCE ONCE IV PUSH Last administered on at 10:26; Start 11/23/17 at 09:30; Stop 11/23/17 at 09:31; Status DC Duloxetine HCl (Cymbalta Dr) 40 mg DAILY PO Last administered on 12/03/17 08: 17; Start 11/27/17 at 09:00; Status Future Hold Famotidine (Pepcid Inj) 10 mg Q12H IV PUSH Last administered on 11/26/17 23:28 ; Start 11/23/17 at 11:00; Stop 11/27/17 at 11:36; Status DC Famotidine (Pepcid) 10 mg BID PO Last administered on 12/04/17 08:46; Start at 12:00 Fluticasone/ Vilanterol (Breo Ellipta 100-25 Inh) 1 puff DAILY INH Last administered on 12/04/17 08:47; Start 11/23/17 at 09:00 Furosemide (Lasix Inj) 20 mg ONCE ONCE IV PUSH Last administered on 11/26/17at 20:26; Start 11/26/17 at 19:30; Stop 11/26/17 at 19:31; Status DC Gabapentin (Neurontin) 100 mg DAILY PO Last administered on 12/03/17 08:16; Start 11/26/17 at 19:45; Status Future Hold Heparin Sodium (Porcine) (Heparin Inj) 5,000 units Q12H SQ Last administered on 12/04/17 08:46; Start 11/22/17 at 22:00 Hydralazine HCl (Apresoline Inj) 10 mg Q6H PRN IV PUSH SEE LABEL COMMENTS Last administered on 12/03/17 09:53; Start 12/02/17 at 22:30 Insulin Aspart (NovoLOG SUPPLEMENTAL SCALE) 1 Q4H SQ ; Start 11/22/17 at 23:00; Stop 11/29/17 at 11:39; Status DC Insulin Human Regular (NovoLIN R INJ) 10 units ONCE ONCE IV PUSH Last administered on 11/23/17at 22:10; Start 11/23/17 at 21:30; Stop 11/23/17 at 21:38 ; Status DC Labetalol HCl (Trandate Inj) 10 mg Q4H PRN IV PUSH SBP >165 Last administered on 11/25/17at 21:29; Start 11/24/17 at 12:15; Stop 12/02/17 at 22:28; Status DC Melatonin (Melatonin) 5 mg ONCE ONCE PO Last administered on 11/27/17 21:58; Start 11/27/17 at 21:45; Stop 11/27/17 at 21:46; Status DC Miscellaneous (Pill Splitter) 1 ea UNSCH PRN OTHER SEE LABEL COMMENTS Last administered on 11/29/17 21:06; Start 11/26/17 at 20:00 Miscellaneous Information ([facility]) 1 Q361D XX Last administered on 11/22/17at 21:45; Start 11/22/17 at 21:45 Nifedipine (Procardia Xl) 30 mg DAILY PO Last administered on 12/04/17 08:46; Start 12/03/17 at 09:45 Pharmacy Profile Note 0 ml @ 0 mls/hr UNSCH OTHER ; Start 11/27/17 at 09:00; Stop 12/02/17 at 13:41; Status DC Piperacillin Sod/ Tazobactam Sod 50 ml @ 100 mls/hr Q6H IV Last administered on 11/27/17at 11:57; Start 11/26/17 at 11:00; Stop 11/27/17 at 15:20; Status DC Sodium Polystyrene Sulfonate (Kayexalate Liq) 15 gm ONCE ONCE PO Last administered on 11/23/17at 22:03; Start 11/23/17 at 21:30; Stop 11/23/17 at 21:38 ; Status DC Sodium Bicarbonate (Sodium Bicarbonate 8.4% Inj) 50 meq ONCE ONCE IV PUSH Last administered on 11/23/17at 22:04; Start 11/23/17 at 21:30; Stop 11/23/17 at 21:38; Status DC Sodium Chloride 1,000 ml @ 83 mls/hr Q12H3M IV Last administered on 11/30/17at 21:13; Start 11/28/17 at 16:45; Stop 12/03/17 at 09:17; Status DC Sodium Chloride (NS Flush) 2 ml UNSCH PRN IV FLUSH FLUSH AFTER USING IV ACCESS Last administered on 12/02/17at 22:54; Start 11/22/17 at 19:15 Tamsulosin HCl (Flomax) 0.4 mg HS PO Last administered on 12/03/17at 22:14; Start 11/23/17 at 21:00 Vancomycin HCl 1000 mg/Sodium Chloride 250 ml @ 250 mls/hr ONCE ONCE IV Last administered on 11/22/17at 22:37; Start 11/22/17 at 22:00; Stop 11/22/17 at 22:59 ; Status DC Vancomycin HCl 1500 mg/Sodium Chloride 515 ml @ 257.5 mls/ hr ONCE ONCE IV Last administered on 12/01/17at 18:43; Start 12/01/17 at 15:00; Stop 12/02/17 at 13:41; Status DC Vancomycin HCl 2000 mg/Sodium Chloride 520 ml @ 250 mls/hr ONCE ONCE IV Last administered on 11/27/17at 09:54; Start 11/27/17 at 10:00; Stop 11/27/17 at 12:04 ; Status DC A/P Problem List: (1) Altered mental status ICD Code: R41.82 - Altered mental status, unspecified Status: Acute (2) UTI (urinary tract infection) ICD Code: N39.0 - Urinary tract infection, site not specified Status: Acute (3) Acute on chronic renal failure ICD Code: N17.9 - Acute kidney failure, unspecified; N18.9 - Chronic kidney disease, unspecified Status: Acute (4) Hyperkalemia ICD Code: E87.5 - Hyperkalemia Status: Resolved (5) Acute metabolic encephalopathy ICD Code: G93.41 - Metabolic encephalopathy Status: Resolved (6) HTN (hypertension) ICD Code: I10 - Essential (primary) hypertension Status: Acute (7) Obesity ICD Code: E66.9 - Obesity, unspecified Status: Acute (8) CHF (congestive heart failure) ICD Code: I50.9 - Heart failure, unspecified Status: Acute (9) CAD (coronary artery disease) ICD Code: I25.10 - Atherosclerotic heart disease of [place] coronary artery without angina pectoris Status: Acute Assessment and Plan Acute metabolic encephalopathy- more alert today. -Altered mentation was felt to be secondary to sepsis, now back to baseline. - CT brain 11/22 - negative -EEG triphasic waves c/w severe diffuse encephalopathy. Could increase risk for seizure. No clinical seizure activity and mental status now at baseline. neurology consult appreciated. - held Baclofen, Neurontin and Cymbalta . History of COPD -Nasal cannula oxygen to keep SaO2 >90% -neb treatment. -Continue Breo Ellipta History of coronary artery disease History of cardiac arrest Continue Plavix HTN- overall better . started on Procardia- continue to monitor. h/o Dysphagia - Now able to swallow and diet advanced. - famotidine Acute on chronic kidney disease Acute obstructive uropathy. Hyperkalemia hypernatremia Type 2 diabetes - Yang in place. - Continuing flomax 0.4 mg po qhs that he is on chronically. Will need urology followup as outpatient, seen as inpatient but no additional therapy recommended. Yang to remain in place until f/u. -started on gentle IV hydration with D5W -Nephrology Dr. Lima following. -Renal ultrasound shows bilateral hydronephrosis. UTI Severe sepsis MRSA bacteremia -blood cultures repeated on 12/03- will follow. -IV vancomycin 1 GM x1 11/22 - pharmacy consulted for Vanco dosing. -ID f/u appreciated; needs Vanco for two weeks from the first negative blood culture. -echo with EF 45%- [facility]. He does not have an advanced directive on file at the prison. There is no family contact. There is contact information for a friend named Sarah Pratt who was a neighbor but she states she was never formally designated his healthcare surrogate. She was helping him with grocery shopping and finances when he was living at home. She states he has no family. She states his closest friend who used to take him to doctor appointments was Eran Vance (spelling unknown) , . Patient is currently not capacitated for medical decision making and it is unclear who would make medical decisions on his behalf. Palliative care following. Discharge Planning dc planning within the next one-two days if stable and cleared by consultants. Problem Qualifiers (1) Altered mental status: Qualified Codes: R41.82 - Altered mental status, unspecified (2) UTI (urinary tract infection): Qualified Codes: N39.0 - Urinary tract infection, site not specified; R31.9 - Hematuria, unspecified Felipe Gonzalez MD December 04, 2017 10:02
[2017-12-04 11:18] LABS: ALBUMIN 2.3 GM/DL (3.4-5.0); BICARBONATE 25.7 MEQ/L (21.0-32.0); CALCIUM 9.2 MG/DL (8.5-10.1); CREATININE 3.17 MG/DL (0.60-1.30)
--- NOTE | 2017-12-04 13:25 | HHI.HCPN ---
Met with Mr. Rosenberg for ongoing conversations regarding goals of care, assistance with communication and symptoms. Mr. Rosenberg is awake, alert, and able to make his needs known. He is appropriate in conversation and verbalizes appreciation of company. Verbalizes he is feeling a little lousy today. Reports slight pain in his stomach, states it is sometimes sharp although not in any apparent distress. Reports chronic shortness of breath during rest and physical movement (walking). Currently on NC, some requirement of accessory muscles to breath during conversation. Denies any discomfort and verbalizes he does not want any breathing treatments. Mr. Rosenberg states he was told to drink a lot of water for his kidneys "but it is not helping with my cough". States the doctor listening to his lungs and his lungs sound fine. Requests cough medicine if possible. 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 Gently reviewed psychosocial history with Mr. Rosenberg as he is more clear than previously indicated in notes. He tells me he had 4 children. In further review he indicates Kinjal and Pedro Luis are not his biological children, stating his ex- was a hooker. He believes Lee is his biological son and confirms Russel is his biological son. He indicates he has not spoken with any of the children in over 20 years and does not know their current last names or whereabouts. Mr. Rosenberg states the children were placed in foster care and then adopted out. He does not have information regarding their last names but states their last known location was in [place]. Indicates his ex-'s name is Blanka Riddle, although he is unsure if the children would have this last name. He indicates he would like to speak with all the children if possible but in his own search efforts he has been unable to locate them. [employer] requests to help assist find the children. Mr. Rosenberg indicates he needs to continue hospitalization so he can walk again. Inform him these therapies can possibly be continued when he is ready for discharge and returns to the detention. Palliative care will continue to follow throughout hospitalization. Heather Roa, JUNIOR December 04, 2017 13:25
[2017-12-04] MEDS: TAMSULOSIN HCL 0.4 MG CAP PO SCH (22:19)
[2017-12-05 03:10] VITALS: BP 118/53; PULSE 75; RESP 18; TEMP 98; O2SAT 97
[2017-12-05] MEDS: CHLORHEXIDINE GLUCONATE 2 % 1 PACK (2 CLOTHS) TOP SCH (03:26)
[2017-12-05 04:00] VITALS: PULSE 76
[2017-12-05 07:35] LABS: ALBUMIN 2.1 GM/DL (3.4-5.0); BICARBONATE 23.2 MEQ/L (21.0-32.0); CALCIUM 8.6 MG/DL (8.5-10.1); CREATININE 3.3 MG/DL (0.60-1.30); PHOSPHORUS 2.7 MG/DL (2.5-4.9)
[2017-12-05 08:00] VITALS: BP 169/70; PULSE 70; PULSE 77; RESP 18; TEMP 97.9; O2SAT 96
--- NOTE | 2017-12-05 08:34 | HHI.NPPN ---
Subjective Renal Failure: Chronic, Acute Interval History patient complains of cough. Non oliguric, Vancomycin level is still high: now he is on Daptomycin. Review of Systems Respiratory Lungs: Cough, Wheeze Objective Data Data Vital Signs Date Time Temp Pulse Resp B/P (MAP) Pulse Ox O2 Delivery O2 Flow Rate FiO2 12/05/17 04:00 76 12/05/17 03:10 98.0 75 18 118/53 (74) 97 12/04/17 23:58 98.0 67 16 135/61 (85) 92 12/04/17 20:00 98.1 88 20 137/59 (85) 96 12/04/17 20:00 83 12/04/17 20:00 Room Air 12/04/17 16:33 98.2 78 18 132/68 (89) 100 12/04/17 15:45 87 12/04/17 12:33 98.8 80 20 134/66 (88) 98 12/04/17 08:44 98.2 88 18 151/68 (95) 98 -: 12/04/17 0615 12/05/17 0640 Tubes & Lines: Yang Physical Exam General Appearance: Well Developed, Well Nourished, No Acute Distress, Comfortable, Obese Neck Neck Exam: Neck Supple Pulmonary Resp Exam: Breath Sounds Equal, Rhonchi, Decreased Bases Cardiology CV Exam: Regular, Normal Sinus Rhythm Gastrointestinal/Abdomen GI Exam: Soft, Non-Tender, Bowel Sounds Present Genitourinary Exam: Clear Urine Musculoskeletal MS Exam: Joints Intact, Normal Tone Integumentary Skin Exam: Clear, Warm, Dry, Intact Extremeties Extremities Exam: No Edema, Pedal Pulses Palpable Neurologic Neuro Exam: Awake, Speech Clear, Stuporous Psychiatric Psych Exam: Appropriate Responses Assessment/Plan Discussed Condition With: Patient Electrolyte Assessment: Hypernatremia, Metabolic Acidosis Problem List: (1) Acute on chronic renal failure ICD Codes: N17.9 - Acute kidney failure, unspecified; N18.9 - Chronic kidney disease, unspecified Status: Acute Plan: He has underlying CKD. This is most likely due to chronic obstructive uropathy. Renal function is likely at baseline. Hypernatremia has improved. Discontinue D5W. Encourage oral intake. Monitor urine output, currently has Yang, is non oliguric. (2) UTI (urinary tract infection) ICD Codes: N39.0 - Urinary tract infection, site not specified Status: Acute Plan: with sepsis History of frequent UTI, culture + MRSA Antibiotics include Daptomycin. Closely monitor renal function and renal dose when appropriate At discharge will need Yang replaced every 30 days. (3) Acute metabolic encephalopathy ICD Codes: G93.41 - Metabolic encephalopathy Status: Resolved Plan: Neurology has evaluated, most likely due to ARF/UTI/sepsis Continue to monitor. Slightly better today Needs PT/OT (4) Sepsis ICD Codes: A41.9 - Sepsis, unspecified organism Plan: On antibiotics, ID has followed (5) Hyperkalemia ICD Codes: E87.5 - Hyperkalemia Status: Resolved Plan: corrected, monitor Problem Qualifiers (1) UTI (urinary tract infection): Qualified Codes: N39.0 - Urinary tract infection, site not specified; R31.9 - Hematuria, unspecified Curt Bal MD December 05, 2017 08:34
[2017-12-05] MEDS: FLUTICASONE 100 MCG/VILANTEROL 25 MCG INHALER INH SCH (09:11)
[2017-12-05] MEDS: DAPTOmycin INJ 700 MG in SODIUM CHLORIDE 0.9% INJ 100 ML IV SCH (09:11)
[2017-12-05] MEDS: NIFEdipine 30 MG SUSTAINED RELEASE TAB PO SCH (09:17)
[2017-12-05] MEDS: FAMOTIDINE 20 MG TAB PO SCH (09:17)
[2017-12-05] MEDS: CLOPIDOGREL 75 MG TAB PO SCH (09:17)
[2017-12-05] MEDS: HEPARIN SODIUM - SQ 10,000 UNITS/ML VIAL SQ SCH (09:18)
[2017-12-05 12:00] VITALS: BP 150/66; PULSE 75; PULSE 78; RESP 18; TEMP 97.8; O2SAT 98
--- NOTE | 2017-12-05 16:16 | HHI.PR ---
Subjective Remarks No overnight events. No complaints, on RA, no chest pain, roman in place Objective Vitals Vital Signs Date Time Temp Pulse Resp B/P (MAP) Pulse Ox O2 Delivery O2 Flow Rate FiO2 12/05/17 12:00 97.8 78 18 150/66 (94) 98 12/05/17 12:00 75 12/05/17 08:00 Room Air 12/05/17 08:00 77 12/05/17 08:00 97.9 70 18 169/70 (103) 96 12/05/17 04:00 76 12/05/17 03:10 98.0 75 18 118/53 (74) 97 12/04/17 23:58 98.0 67 16 135/61 (85) 92 12/04/17 20:00 98.1 88 20 137/59 (85) 96 12/04/17 20:00 83 12/04/17 20:00 Room Air 12/04/17 16:33 98.2 78 18 132/68 (89) 100 I/O 12/04/17 12/04/17 12/04/17 12/05/17 12/05/17 12/05/17 07:00 15:00 23:00 07:00 15:00 23:00 Intake Total 947 ml 380 ml 720 ml Output Total 500 ml 1000 ml 350 ml Balance 447 ml -620 ml 370 ml Intake Oral 400 ml 380 ml 720 ml IV Total 547 ml Output Urine Total 500 ml 1000 ml 350 ml # Bowel Movements 0 0 Result Diagram: 12/04/17 0615 12/05/17 0640 Objective Remarks GENERAL:not in distress. CARDIOVASCULAR: Regular rate and regular rhythm without murmurs, gallops, or rubs. RESPIRATORY: Clear to auscultation. Breath sounds equal bilaterally. No wheezes , rales, or rhonchi. GASTROINTESTINAL: Abdomen soft, non-tender, nondistended. Roman catheter in place, with yellow clear urine. Normal, active bowel sounds MUSCULOSKELETAL: Extremities without clubbing, cyanosis, or edema. NEURO: Alert & Oriented x4 to person, place, time, situation. Moves all ext x4 A/P Problem List: (1) Altered mental status ICD Code: R41.82 - Altered mental status, unspecified Status: Acute (2) UTI (urinary tract infection) ICD Code: N39.0 - Urinary tract infection, site not specified Status: Acute (3) Acute on chronic renal failure ICD Code: N17.9 - Acute kidney failure, unspecified; N18.9 - Chronic kidney disease, unspecified Status: Acute (4) Hyperkalemia ICD Code: E87.5 - Hyperkalemia Status: Resolved (5) Acute metabolic encephalopathy ICD Code: G93.41 - Metabolic encephalopathy Status: Resolved (6) HTN (hypertension) ICD Code: I10 - Essential (primary) hypertension Status: Acute (7) Obesity ICD Code: E66.9 - Obesity, unspecified Status: Acute (8) CHF (congestive heart failure) ICD Code: I50.9 - Heart failure, unspecified Status: Acute (9) CAD (coronary artery disease) ICD Code: I25.10 - Atherosclerotic heart disease of [place] coronary artery without angina pectoris Status: Acute Assessment and Plan Acute metabolic encephalopathy- -Altered mentation was felt to be secondary to sepsis, now back to baseline. - CT brain 11/22 - negative , EEG triphasic waves c/w severe diffuse encephalopathy. No clinical seizure activity and mental status now at baseline. Neurology cleared the patient for discharge. Cymbalta, Neurontin and baclofen were held. History of COPD -Nasal cannula oxygen to keep SaO2 >90% -neb treatment. -Continue Breo Ellipta History of coronary artery disease History of cardiac arrest Continue Plavix HTN- overall better . started on Procardia- continue to monitor. h/o Dysphagia - Now able to swallow and diet advanced. - famotidine Acute on chronic kidney disease Acute obstructive uropathy. Hyperkalemia hypernatremia Type 2 diabetes - Roman in place. - Continuing flomax 0.4 mg po qhs that he is on chronically. Will need urology followup as outpatient, seen as inpatient but no additional therapy recommended. Roman to remain in place until f/u. Roman catheter needs to be replaced every 30 days. Renal ultrasound shows bilateral hydronephrosis. Nephrology cleared the patient for discharge. UTI Severe sepsis MRSA bacteremia -blood cultures repeated on 12/03- will follow. -IV vancomycin 1 GM x1 11/22, infectious disease following, recommended daptomycin for 2 weeks. Repeat blood culture in 2 weeks after finishing antibiotics. Repeat blood culture negative. egative blood culture. -echo with EF 45%- Patient is reportedly designated full code at shelter. He does not have an advanced directive on file at the shelter. There is no family contact. There is contact information for a friend named Sarah Pratt who was a neighbor but she states she was never formally designated his healthcare surrogate. She was helping him with grocery shopping and finances when he was living at home. She states he has no family. She states his closest friend who used to take him to doctor appointments was Eran Pinky (spelling unknown) [phone], . Patient is currently not capacitated for medical decision making and it is unclear who would make medical decisions on his behalf. Palliative care following. Problem Qualifiers (1) Altered mental status: Qualified Codes: R41.82 - Altered mental status, unspecified (2) UTI (urinary tract infection): Qualified Codes: N39.0 - Urinary tract infection, site not specified; R31.9 - Hematuria, unspecified James Mosquera MD December 05, 2017 16:16
--- NOTE | 2017-12-05 16:20 | HHI.DS ---
Discharge Summary Admission Date November 22, 2017 at 21:37 Discharge Date: December 05, 2017 Admitting Diagnosis Hyperkalemia, acute renal failure, UTI, AMS (1) Altered mental status ICD Code: R41.82 - Altered mental status, unspecified Diagnosis: Principal Status: Acute (2) UTI (urinary tract infection) ICD Code: N39.0 - Urinary tract infection, site not specified Diagnosis: Principal Status: Acute (3) Acute on chronic renal failure ICD Code: N17.9 - Acute kidney failure, unspecified; N18.9 - Chronic kidney disease, unspecified Diagnosis: Principal Status: Acute (4) Hyperkalemia ICD Code: E87.5 - Hyperkalemia Diagnosis: Principal Status: Resolved (5) Acute metabolic encephalopathy ICD Code: G93.41 - Metabolic encephalopathy Diagnosis: Principal Status: Resolved (6) HTN (hypertension) ICD Code: I10 - Essential (primary) hypertension Diagnosis: Secondary Status: Acute (7) Obesity ICD Code: E66.9 - Obesity, unspecified Diagnosis: Secondary Status: Acute (8) CHF (congestive heart failure) ICD Code: I50.9 - Heart failure, unspecified Diagnosis: Secondary Status: Acute (9) CAD (coronary artery disease) ICD Code: I25.10 - Atherosclerotic heart disease of [place] coronary artery without angina pectoris Diagnosis: Secondary Status: Acute Procedures None. Brief History - From Admission 77-year-old male with past medical history of CAD, CHF, COPD, chronic kidney disease stage III, GI bleed, cardiac arrest in 2017, diabetes, pacemaker placement who was brought to the emergency department from [facility] for altered mentation. Patient usually is communicative but last 24-48 hours had been confused and more lethargic somnolent. A CT of the head in the ER was negative for any acute findings as well as chest x-ray was also negative. CBC shows leukocytosis 12.3. CMP showed K 7.2, BUN 49, creatinine 3.39. Patient has a chronic Yang and history of recurrent UTI. UA shows moderate occult blood, large leukocyte esterase, innumerable WBC, indicating severe UTI and urosepsis. In the ED patient received 2 L normal saline bolus, and for hyperkalemia treatment received sodium bicarb 1 amp IV, 1 amp of dextrose, 10 units IV regular insulin, 1 g calcium gluconate after IV fluids. Patient started on Zosyn 2.25 g for UTI. I evaluated the patient in the ED. He is lethargic but wakes up to sternal rub. States his name follows commands but falls right back to sleep. His metabolic encephalopathy secondary to his sepsis. Cultures have been drawn I will continue Zosyn, give 1 dose of vancomycin. He is protecting airway and does not need the patient at this time. Stat repeat CMP ordered CBC/BMP: 12/04/17 0615 12/05/17 0640 Significant Findings Laboratory Tests Test 12/02/17 16:47 12/03/17 05:05 12/03/17 20:37 12/04/17 06:15 Blood Gas Base Excess -3.8 mmol/L (-2-2) Arterial Blood pH 7.30 (7.380-7.420) Arterial Blood Partial Pressure CO2 45 mmHg (38-42) Arterial Blood Oxygen Content 11.4 Vol % (12.0-20.0) Blood Gas Hemoglobin 8.3 G/DL (12.0-16.0) Blood Urea Nitrogen 34 MG/DL (7-18) Creatinine 3.24 MG/DL (0.60-1.30) Sodium Level 148 MEQ/L (136-145) Chloride Level 116 MEQ/L (98-107) Carbon Dioxide Level 20.8 MEQ/L (21.0-32.0) Estimat Glomerular Filtration Rate 19 ML/MIN (>89) Red Blood Count 2.64 MIL/MM3 (4.50-5.90) Hemoglobin 7.4 GM/DL (13.0-17.0) Hematocrit 22.6 % (39.0-51.0) Mean Platelet Volume 5.8 FL (7.0-11.0) Neutrophils (%) (Auto) 74.5 % (16.0-70.0) Monocytes (%) (Auto) 10.0 % (0.0-8.0) Eosinophils (%) (Auto) 5.8 % (0.0-4.0) Lymphocytes # (Auto) 0.4 TH/MM3 (1.0-4.8) Test 12/04/17 10:50 12/05/17 06:40 Blood Urea Nitrogen 33 MG/DL (7-18) 34 MG/DL (7-18) Creatinine 3.17 MG/DL (0.60-1.30) 3.30 MG/DL (0.60-1.30) Albumin 2.3 GM/DL (3.4-5.0) 2.1 GM/DL (3.4-5.0) Potassium Level 3.4 MEQ/L (3.5-5.1) Chloride Level 112 MEQ/L (98-107) 108 MEQ/L (98-107) Estimat Glomerular Filtration Rate 19 ML/MIN (>89) 18 ML/MIN (>89) Random Glucose 115 MG/DL (74-106) PE at Discharge GENERAL:not in distress. CARDIOVASCULAR: Regular rate and regular rhythm without murmurs, gallops, or rubs. RESPIRATORY: Clear to auscultation. Breath sounds equal bilaterally. No wheezes , rales, or rhonchi. GASTROINTESTINAL: Abdomen soft, non-tender, nondistended. Yang catheter in place, with yellow clear urine. Normal, active bowel sounds MUSCULOSKELETAL: Extremities without clubbing, cyanosis, or edema. NEURO: Alert & Oriented x4 to person, place, time, situation. Moves all ext x4 Hospital Course This is a 77-year-old male with history of coronary artery disease, CHF, COPD, CKD stage III, prior history of cardiac arrest, diabetes mellitus and pacemaker placement who was sent from [facility] for altered mentation. The patient was diagnosed with acute metabolic encephalopathy secondary to sepsis. CT scan of the head was unremarkable. EEG triphasic waves c/w severe diffuse encephalopathy. No clinical seizure activity noted, neurology was consulted. After resolution of sepsis, patient's mental status is back to normal. Patient has sepsis secondary to UTI with MRSA bacteremia, patient was initially started on vancomycin, infectious disease was consulted. Blood culture remained negative subsequently. Echocardiogram was unremarkable, no vegetation with an ejection fraction of 45%. The patient will be continued on daptomycin for 2 weeks. He needs a repeat blood culture in 2 weeks after finishing antibiotics. He was cleared by infectious disease for discharge. He was also found to have acute renal failure and stop of acute obstructive uropathy, renal ultrasound showed bilateral hydronephrosis, nephrology and urology were consulted. He was continued on Flomax. Yang catheter was placed , he will need to keep the Yang catheter and this needs to be replaced every 30 days. He needs outpatient follow-up with nephrology and urology. Pt Condition on Discharge: Good Discharge Disposition: Discharge to SNF Discharge Time: > 30 minutes Discharge Instructions DIET: Follow Instructions for: Renal Failure Diet Activities you can perform: Regular-No Restrictions Follow up Referrals: Nephrology PCP Follow-up New Medications: Amlodipine (Norvasc) 5 Mg Tab 5 MG OG-TUBE DAILY for hypertension for 30 Days, #30 TAB 0 Refills Gabapentin (Gabapentin) 100 Mg Cap 100 MG PO DAILY for Pain Management for 30 Days, #30 CAP 0 Refills Continued Medications: Allopurinol (Allopurinol) 100 Mg Tab 100 MG PO DAILY for Gout, #30 TAB 0 Refills Atorvastatin (Atorvastatin) 40 Mg Tab 40 MG PO HS for Cholesterol Management, #30 TAB 0 Refills Baclofen (Baclofen) 10 Mg Tab 10 MG PO TID for Muscle Spasm, TAB 0 Refills Calcium Carbonate-Vitamin D Chew (Caltrate 600+D Chew) 600-400 Mg-Unit Chew 1 TAB PO BID for Nutritional Supplement, EA 0 Refills Clopidogrel (Plavix) 75 Mg Tab 75 MG PO DAILY for Blood Clot Prevention, #30 TAB [address] (Cymbalta DR) 20 Mg Capdr 40 MG PO DAILY, #30 CAP 0 Refills Epoetin Inj (Procrit Inj) 2,000 Unit/Ml Inj 2000 UNITS SQ SATURDAY for Anemia, #12 VIAL 0 Refills Ferrous Sulfate (Ferrous Sulfate) 325 Mg (65 Mg Iron) Tablet 325 MG PO BIDPC for Nutritional Supplement, #60 TAB 0 Refills Fluticasone-Vilanterol Inh (Breo Ellipta Inh) 100-25 Mcg/Act Inh 1 PUFF INH DAILY, #1 INHALER 0 Refills Use daily at the same time. Hydrocodone-Acetaminophen ([place]) 5 Mg-325 Mg Tab 1 TAB PO Q4H PRN for PAIN, #12 TAB 0 Refills (This prescription has been renewed ) Insulin Aspart Inj (Novolog Flexpen Inj) 300 Unit/3 Ml Pen 1 UNITS SQ for Blood Sugar Management, #1 PEN 0 Refills Ipratropium-Albuterol Neb (Duoneb) 0.5-2.5 Mg/3 Ml Neb 1 NEBULE INH Q4HR NEB for SHORTNESS OF BREATH, #120 NEBULE 0 Refills Magnesium Hydroxide Liq (Milk of Magnesia Liq) 400 Mg/5 Ml Susp 15 ML PO DAILY PRN for INDIGESTION OR UPSET STOMACH, #1 BOTTLE 0 Refills Melatonin (Gnp Melatonin) 3 Mg Tab Multiple Vitamins W/ Minerals (Actical) 1 Cap 1 CAP PO DAILY for Nutritional Supplement, CAP 0 Refills Omeprazole (Omeprazole) 20 Mg Tab 20 MG PO DAILY, #30 TAB 0 Refills Tamsulosin (Tamsulosin) 0.4 Mg Cap 0.4 MG HS for Manage Prostate Problems, #30 CAP 0 Refills Discontinued Medications: Furosemide (Furosemide) 40 Mg Tab 40 MG PO DAILY for fluid retention, #30 TAB Gabapentin (Gabapentin) 100 Mg Cap 100 MG PO TID, #90 CAP 0 Refills Lisinopril (Lisinopril) 5 Mg Tab 5 MG PO DAILY for Blood Pressure Management, #30 TAB 0 Refills Loperamide (Loperamide) 2 Mg Cap 2 MG PO DIRECTED PRN for DIARRHEA, CAP 0 Refills One capsule after each loose stool. Not to exceed 8 capsules per day. James Mosquera MD December 05, 2017 16:19
== END 2017-12-05 17:27 | DRG 698 ==
LOC: NEPE 18:05 → NEDA 21:37 → HIME 23:50 → N04A 11-26 21:58
PROVIDERS: ADMIT Family Medicine; ATTEND Family Medicine
DX: T83.511A Infection and inflammatory reaction due to indwelling urethral catheter, initial encounter (principal); G93.41 Metabolic encephalopathy; A41.02 Sepsis due to Methicillin resistant Staphylococcus aureus; N17.9 Acute kidney failure, unspecified; I13.0 Hypertensive heart and chronic kidney disease with heart failure and stage 1 through stage 4 chronic kidney disease, or unspecified chronic kidney disease; N18.4 Chronic kidney disease, stage 4 (severe); I50.9 Heart failure, unspecified; E87.0 Hyperosmolality and hypernatremia; R13.10 Dysphagia, unspecified; R65.20 Severe sepsis without septic shock; N13.30 Unspecified hydronephrosis; N39.0 Urinary tract infection, site not specified; E87.5 Hyperkalemia; E66.9 Obesity, unspecified; Z68.35 Body mass index [BMI] 35.0-35.9, adult; I25.10 Atherosclerotic heart disease of native coronary artery without angina pectoris; Z95.5 Presence of coronary angioplasty implant and graft; Z95.0 Presence of cardiac pacemaker; Z79.02 Long term (current) use of antithrombotics/antiplatelets; Z87.440 Personal history of urinary (tract) infections; E11.22 Type 2 diabetes mellitus with diabetic chronic kidney disease; Z79.4 Long term (current) use of insulin; N32.0 Bladder-neck obstruction; M10.9 Gout, unspecified; J44.9 Chronic obstructive pulmonary disease, unspecified; E78.5 Hyperlipidemia, unspecified; D50.9 Iron deficiency anemia, unspecified; E86.9 Volume depletion, unspecified; Z89.411 Acquired absence of right great toe; Z86.74 Personal history of sudden cardiac arrest; Z87.891 Personal history of nicotine dependence
CPT/HCPCS: 36600; 70450; 71045; 76775; 76937; 80048; 80053; 80069; 80076; 80202; 81001; 82140; 82272; 82550; 82570; 82805; 82948; 83605; 83735; 83880; 84100; 84132; 84300; 84484; 85025; 85610; 85730; 86403; 87040; 87077; 87086; 87186; 87205; 87641; 93005; 93308; 94640; 94664; 95819; 96365; 96375; J0360; J0610; J0878; J1644; J1815; J1940; J2543; J3370; J7030; J7040; J7050; J7070

== ENCOUNTER 2017-12-08 17:51 | Inpatient (IN) | payer MEDICARE, OTHER ==
[~2017-12-08] VITALS: Ht 182.9 cm; Wt 114.7 kg
[~2017-12-08 17:51] MED LIST changes: -ACET1CAP18 PO; +AMLO5 OG-TUBE; -AZIT250T3 PO; +BACL10TA PO; +CALTCHW5 PO; -CALTTAB PO; -CEFT500T3 PO; -CLOP75TA PO; +DULO20 PO; +FERR325T18 PO; -FURO40TA PO; +GABA100C4 PO; -LOPE2CAP PO; +MILKSUS PO; -MIRTA15 PO; -MULT1CHW70; +NORC5TAB PO; +PLAV75TA29 PO; -POLYPOW5; -POTA-163 PO; -PRED10 PO; -SKIN1CRE2; -SPIRCAP INH; +TAMS0.4C4; -TAMS0.4C4 PO; -ZINC20OI; +[UNRECOGNIZED DRUG - CODE] SQ; +[UNRECOGNIZED DRUG - OTHER] PO
[2017-12-08 17:58] VITALS: BP 135/61; PULSE 69; RESP 16; O2SAT 96
--- NOTE | 2017-12-08 18:26 | RADRPT ---
EXAM DATE: 12/08/2017 6:21 PM EDT AGE/SEX: 77 years / Male INDICATIONS: Trauma. Fall. CLINICAL DATA: This is the patient's initial encounter. Patient reports that signs and symptoms have been present for 1 day and indicates a pain score of Nonresponsive. MEDICAL/SURGICAL HISTORY: Cardiovascular disease. Renal failure, acute. Diabetes mellitus type II . Dementia Cholecystectomy. RADIATION DOSE: 44.25 CTDI (mGy) [place] [facility] [place] [facility] [place]. . TECHNIQUE: CT of the head without contrast. Using automated exposure control and adjustment of the mA and/or kV according to patient size, radiation dose was kept as low as reasonably achievable to ob tain optimal diagnostic quality images. FINDINGS: Cerebrum: Mild stable cerebral atrophy is noted. No evidence of midline shift, mass lesion, hemorrha ge or acute infarction. No extraaxial fluid collections are seen. Posterior Fossa: The cerebellum and brainstem are intact. The 4th ventricle is midline. The cerebe llopontine angle is unremarkable. Extracranial: The visualized portion of the orbits is intact. Acute left nasal bone fracture is note d. Skull: The calvaria is intact. No evidence of skull fracture. CONCLUSION: 1. No acute intracranial abnormality. 2. Mild stable cerebral atrophy. 3. Acute left nasal bone fracture. Electronically signed by: Irvin Thompson MD 12/08/2017 6:24 PM EDT
--- NOTE | 2017-12-08 18:44 | RADRPT ---
EXAM DATE: 12/08/2017 6:35 PM EDT AGE/SEX: 77 years / Male INDICATIONS: Trauma.Fall. CLINICAL DATA: This is the patient's initial encounter. Patient reports that signs and symptoms have been present for 1 day and indicates a pain score of Nonresponsive. MEDICAL/SURGICAL HISTORY: Cardiovascular disease. Renal failure, chronic. Diabetes mellitus t ype II. Dementia Cholecystectomy. RADIATION DOSE: 46.99 CTDI (mGy) ; Patient body habitus COMPARISON: No prior [place] exams available for comparison. TECHNIQUE: Contiguous axial images were obtained using helical multirow detector technique. The vol umetric data was post-processed with multiplanar reconstruction in oblique axial, sagittal, and coron al planes. Using automated exposure control and adjustment of the mA and/or kV according to patient s ize, radiation dose was kept as low as reasonably achievable to obtain optimal diagnostic quality kamryn ges. FINDINGS: No fracture or subluxation is demonstrated of the cervical spine. Vertebral bodies have normal height . Multilevel disc space narrowing with uncovertebral and facet osteoarthritis present, severe at C4/C5 and C6/C7, moderate to severe at C5/C6 and moderate at C3/C4. There is chronic appearing bilateral fo raminal stenosis at all for these levels. There is also moderate spinal stenosis at C4/C5 and C5/C6. Mild spinal stenosis seen at C3/C4 and C6/C7. Marked tortuosity noted of the esophagus slightly below the thoracic inlet and with a possible mass, for example series 3 image 81. There is patchy infiltrate in the visualized right lung apex. Multiple small lymph nodes seen in the upper mediastinum measuring up to 9 mm in greatest short axis dimensio n. CONCLUSION: 1. No fracture or subluxation of the cervical spine. 2. Multilevel degenerative changes with associated foraminal and spinal stenosis as above. 3. Possible mass of the esophagus just below the thoracic inlet. Small area of pulmonary consolidati on of the visualized right lung apex. A dedicated CT of the chest is suggested, preferably with intra venous contrast. It may also be prudent to administer some oral contrast immediately before scanning the chest. Electronically signed by: Walter Taylor MD 12/08/2017 6:43 PM EDT
[2017-12-08 18:46] LABS: AUTOMATED NEUTROPHIL # 5.3 TH/MM3 (1.8-7.7); BASOPHIL # 0.1 TH/MM3 (0-0.2); BASOPHIL % 0.9 % (0.0-2.0); EOSINOPHIL # 0.7 TH/MM3 (0-0.4); EOSINOPHIL % 9.5 % (0.0-4.0); HEMATOCRIT 22.9 % (39.0-51.0); HEMOGLOBIN 7.5 GM/DL (13.0-17.0); LYMPH % 10.2 % (9.0-44.0); LYMPHOCYTE # 0.8 TH/MM3 (1.0-4.8); MEAN CELL VOLUME 85.7 FL (80.0-100.0); MEAN CORPUSCULAR HGB CONC 32.7 % (32.0-36.0); MEAN PLATELET VOLUME 6.3 FL (7.0-11.0); MONO % 9.7 % (0.0-8.0); MONOCYTE # 0.7 TH/MM3 (0-0.9); NEUT % 69.7 % (16.0-70.0); PLATELET COUNT 220 TH/MM3 (150-450); RED BLOOD COUNT 2.67 MIL/MM3 (4.50-5.90); WHITE BLOOD COUNT 7.6 TH/MM3 (4.0-11.0)
--- NOTE | 2017-12-08 18:55 | PD ---
HPI Chief Complaint: Fall Time Seen by Provider: 18:03 Travel History International Travel<30 days: No Contact w/Intl Traveler<30days: No Traveled to known affect area: No History of Present Illness HPI Patient is a 77-year-old male who is sent from his facility after he was found on the ground any pedal of blood. Per EMS, no one knows when he fell. Patient is awake, occasionally answers questions, but really is unable to provide any history. He does say he has a headache. No further history obtainable. PFSH Past Medical History Anemia: Yes Atrial Fibrillation: Yes Heart Rhythm Problems: Yes (bradycardia, a fib ) Cardiovascular Problems: Yes (angina) Congestive Heart Failure: Yes COPD: Yes Dementia: Yes Diabetes: Yes Patient Takes Glucophage: No GERD: Yes (esophageal reflux) Gout: Yes Genitourinary: Yes (uti, obstructive and refkux uropathy ) Neurologic: Yes (dysphagia, restless leg ) Renal Failure: Yes (ckd) Tetanus Vaccination: Unknown Past Surgical History Cholecystectomy: Yes Genitourinary Surgery: Yes (esophagus, hernia repair ) Social History Alcohol Use: No Tobacco Use: No Substance Use: No Allergies-Medications (Allergen,Severity, Reaction): Coded Allergies: Influenza Virus Vaccines (Unverified Allergy, Unknown, 12/08/17) cephalexin (Unverified Allergy, Unknown, 12/08/17) levofloxacin (Unverified Allergy, Unknown, 12/08/17) moxifloxacin (Unverified Allergy, Unknown, 12/08/17) Reported Meds & Prescriptions Reported Meds & Active Scripts Active Gabapentin 100 Mg Cap 100 Mg PO DAILY 30 Days Norvasc (Amlodipine Besylate) 5 Mg Tab 5 Mg OG-TUBE DAILY 30 Days [place] (Hydrocodone-Acetaminophen) 5 Mg-325 Mg Tab 1 Tab PO Q4H PRN Reported Tamsulosin (Tamsulosin HCl) 0.4 Mg Cap 0.4 Mg HS Plavix (Clopidogrel Bisulfate) 75 Mg Tab 75 Mg PO DAILY Actical (Multiple Vitamins W/ Minerals) 1 Cap 1 Cap PO DAILY Milk of Magnesia Liq (Magnesium Hydroxide) 400 Mg/5 Ml Susp 15 Ml PO DAILY PRN Ferrous Sulfate 325 Mg (65 Mg Iron) Tablet 325 Mg PO BIDPC Procrit Inj (Epoetin Alex) 2,000 Unit/Ml Inj 2,000 Units SQ SATURDAY Cymbalta DR (Duloxetine HCl) 20 Mg Capdr 40 Mg PO DAILY Caltrate 600+D Chew (Calcium Carbonate-Vitamin D Chew) 600-400 Mg-Unit Chew 1 Tab PO BID Baclofen 10 Mg Tab 10 Mg PO TID Omeprazole 20 Mg Tab 20 Mg PO DAILY Novolog Flexpen Inj (Insulin Aspart) 300 Unit/3 Ml Pen 1 Units SQ Gnp Melatonin (Melatonin) 3 Mg Tab Duoneb (Ipratropium-Albuterol Neb) 0.5-2.5 Mg/3 Ml Neb 1 Nebule INH Q4HR NEB Breo Ellipta Inh (Fluticasone/Vilanterol) 100-25 Mcg/Act Inh 1 Puff INH DAILY Use daily at the same time. Atorvastatin (Atorvastatin Calcium) 40 Mg Tab 40 Mg PO HS Allopurinol 100 Mg Tab 100 Mg PO DAILY Review of Systems ROS Limitations: Clinical Condition Physical Exam Narrative GENERAL: Awake, minimally alert. SKIN: Focused skin assessment warm/dry. Superficial laceration to the bridge of the nose. HEAD: Atraumatic. Normocephalic. EYES: Pupils equal and round and reactive. No scleral icterus. Extraocular movements intact. ENT: Mucous membranes pink and moist. NECK: Trachea midline. No JVD. CARDIOVASCULAR: Regular rate and rhythm. No murmur appreciated. RESPIRATORY: No accessory muscle use. Clear to auscultation. Breath sounds equal bilaterally. GASTROINTESTINAL: Abdomen soft, non-tender, nondistended. MUSCULOSKELETAL: No obvious deformities. No clubbing. No cyanosis. No edema. NEUROLOGICAL: Awake and alert, responds verbally to his name. No obvious cranial nerve deficits. Motor grossly within normal limits. Data Data Last Documented VS Vital Signs Date Time Temp Pulse Resp B/P (MAP) Pulse Ox O2 Delivery O2 Flow Rate FiO2 12/08/17 21:00 70 14 126/58 (80) [address] Brain W/O Iv Contrast(Rout) (12/08/17 ) Ct Cerv Spine W/O Contrast (12/08/17 ) Ct Facial Bones W/O Iv Cont (12/08/17 ) Iv Access Insert/Monitor (12/08/17 18:03) Complete Blood Count With Diff (12/08/17 18:03) Comprehensive Metabolic Panel (12/08/17 18:03) Act Partial Throm Time (Ptt) (12/08/17 18:03) Prothrombin Time / Inr (Pt) (12/08/17 18:03) Type And Screen (12/08/17 18:03) Lactic Acid (12/08/17 18:21) Urinalysis - C+S If Indicated (12/08/17 18:32) Troponin I (12/08/17 18:03) Urine Culture (12/08/17 18:45) Ct Thorax/ Chest Wo Iv Contras (12/08/17 ) AGID (12/08/17 18:15) Direct Anastasiya (12/08/17 18:15) Red Blood Cells (Rbc) (12/08/17 18:15) Piperacil-Tazo 4.5 Gm Premix (Zosyn 4.5 (12/08/17 22:34) Azithromycin Inj (Zithromax Inj) (12/08/17 22:34) Admit Order (Ed Use Only) (12/08/17 22:41) Labs Laboratory Tests Test 12/08/17 18:15 12/08/17 18:45 12/08/17 20:55 White Blood Count 7.6 TH/MM3 Red Blood Count 2.67 MIL/MM3 Hemoglobin 7.5 GM/DL Hematocrit 22.9 % Mean Corpuscular Volume 85.7 FL Mean Corpuscular Hemoglobin 28.0 PG Mean Corpuscular Hemoglobin Concent 32.7 % Red Cell Distribution Width 16.0 % Platelet Count 220 TH/MM3 Mean Platelet Volume 6.3 FL Neutrophils (%) (Auto) 69.7 % Lymphocytes (%) (Auto) 10.2 % Monocytes (%) (Auto) 9.7 % Eosinophils (%) (Auto) 9.5 % Basophils (%) (Auto) 0.9 % Neutrophils # (Auto) 5.3 TH/MM3 Lymphocytes # (Auto) 0.8 TH/MM3 Monocytes # (Auto) 0.7 TH/MM3 Eosinophils # (Auto) 0.7 TH/MM3 Basophils # (Auto) 0.1 TH/MM3 CBC Comment DIFF FINAL Differential Comment Prothrombin Time 10.5 SEC Prothromb Time International Ratio 1.0 RATIO Activated Partial Thromboplast Time 29.2 SEC Blood Urea Nitrogen 40 MG/DL Creatinine 3.79 MG/DL Random Glucose 112 MG/DL Total Protein 7.6 GM/DL Albumin 2.3 GM/DL Calcium Level 10.3 MG/DL Alkaline Phosphatase 79 U/L Aspartate Amino Transf (AST/SGOT) 24 U/L Alanine Aminotransferase (ALT/SGPT) 15 U/L Total Bilirubin 0.3 MG/DL Sodium Level 143 MEQ/L Potassium Level 4.3 MEQ/L Chloride Level 110 MEQ/L Carbon Dioxide Level 22.8 MEQ/L Anion Gap 10 MEQ/L Estimat Glomerular Filtration Rate 16 ML/MIN Troponin I LESS THAN 0.02 NG/ML Urine Color YELLOW Urine Turbidity CLOUDY Urine pH 6.0 Urine Specific [place] 1.015 Urine Protein 100 mg/dL Urine Glucose (UA) NEG mg/dL Urine Ketones NEG mg/dL Urine Occult Blood MOD Urine Nitrite POS Urine Bilirubin NEG Urine Urobilinogen LESS THAN 2.0 MG/DL Urine Leukocyte Esterase LARGE Urine RBC 29 /hpf Urine WBC /hpf Urine WBC Clumps MANY Urine Squamous Epithelial Cells 1 /hpf Urine Mucus FEW /lpf Microscopic Urinalysis Comment CULTURE INDICATED Lactic Acid Level 0.7 mmol/L MDM Medical Decision Making Medical Screen Exam Complete: Yes Emergency Medical Condition: Yes 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 Reviewed: Yes Differential Diagnosis Intracranial abnormality versus sepsis versus altered mental status versus dehydration versus electrolyte abnormality Narrative Course Patient is a 77-year-old male comes in after being found on the ground. Exam shows a laceration to his nose. Patient taken to CT where CT of his head was performed and shows no acute abnormalities. Labs sent. Patient signed out to Dr. aMrshall to follow-up testing and disposition the patient. Gin Rangel MD Dec 08, 2017 18:55
--- NOTE | 2017-12-08 18:56 | RADRPT ---
EXAM DATE: 12/08/2017 6:48 PM EDT AGE/SEX: 77 years / Male INDICATIONS: Trauma. Fall. CLINICAL DATA: This is the patient's initial encounter. Patient reports that signs and symptoms have been present for 1 day and indicates a pain score of Nonresponsive. MEDICAL/SURGICAL HISTORY: Cardiovascular disease. Renal failure, chronic. Diabetes mellitus t ype II. Dementia Cholecystectomy. RADIATION DOSE: 56.76 CTDI (mGy) COMPARISON: No prior [place] exams available for comparison. TECHNIQUE: Contiguous images in the axial and coronal planes were obtained using helical multirow de tector technique. Using automated exposure control and adjustment of the mA and/or kV according to p atient size, radiation dose was kept as low as reasonably achievable to obtain optimal diagnostic jessica lity images. FINDINGS: Mildly comminuted fracturing involves the tip of the nasion and the left side of the nasal arch. Also minimally displaced fracturing distally of the septum. The nose is slightly deviated towards the rig ht. There is a small amount of blood in the nasal cavity, mostly on the left. Other facial bones, including the orbits, are intact. Soft tissues are within normal limits. CONCLUSION: 1. Mildly comminuted and mildly displaced fracturing of the nose as above. 2. Orbits and other facial bones are intact. Electronically signed by: Walter Taylor MD 12/08/2017 6:55 PM EDT
[2017-12-08 19:02] LABS: PROTHROMBIN TIME - PATIENT 10.5 SEC (9.8-11.6)
[2017-12-08 19:14] LABS: BILIRUBIN, URINE NEG (NEG); BLOOD, URINE MOD (NEG); GLUCOSE,URINE NEG (NEG); KETONE, URINE NEG (NEG); MUCUS URINE FEW /lpf (OCC); NITRITE,URINE POS (NEG); SQUAMOUS EPITHELIAL CELL URINE 1 /hpf (0-5); URINE COLOR YELLOW (YELLW/STRAW); URINE LEUKOCYTE ESTERASE LARGE (NEG); WHITE BLOOD CELL CLUMPS MANY
[2017-12-08 19:23] LABS: ALBUMIN 2.3 GM/DL (3.4-5.0); ALKALINE PHOSPHATASE 79 U/L (45-117); ALT (GPT) 15 U/L (12-78); AST (GOT) 24 U/L (15-37); BICARBONATE 22.8 MEQ/L (21.0-32.0); BLOOD UREA NITROGEN 40 MG/DL (7-18); CALCIUM 10.3 MG/DL (8.5-10.1); CHLORIDE 110 MEQ/L (98-107); CREATININE 3.79 MG/DL (0.60-1.30); GLOMERULAR FILTRATION RATE 16 ML/MIN (>89); GLUCOSE,RANDOM 112 MG/DL (74-106); SODIUM (NA) 143 MEQ/L (136-145); TOTAL BILIRUBIN ADULT 0.3 MG/DL (0.2-1.0); TOTAL PROTEIN 7.6 GM/DL (6.4-8.2); TROPONIN I LESS THAN 0.02 NG/ML (0.02-0.05)
--- NOTE | 2017-12-08 20:20 | RADRPT ---
EXAM DATE: 12/08/2017 7:59 PM EDT AGE/SEX: 77 years / Male INDICATIONS: Patient found on floor. CLINICAL DATA: This is the patient's initial encounter. Patient reports that signs and symptoms have been present for 1 day and indicates a pain score of 0/10. MEDICAL/SURGICAL HISTORY: Cardiovascular disease. Congestive heart failure. Gastroesophageal refl ux disease. AFIB, Renal failure, diabetes. Cholecystectomy. RADIATION DOSE: 18.46 CTDI (mGy) COMPARISON: No prior [place] exams available for comparison. TECHNIQUE: Multiple contiguous axial images were obtained through the chest without contrast. Image s were obtained in suspended respiration using multiple row detector helical technique. Using automa monique exposure control and adjustment of the mA and/or kV according to patient size, radiation dose was kept as low as reasonably achievable to obtain optimal diagnostic quality images. FINDINGS: Lungs: Scattered patchy opacities are noted within the right upper and lower lobes consistent with p ossible developing pneumonia. Clinical correlation is recommended. Minimal scattered patchiness is no monique within the posterior lung bases. Innumerable tiny noncalcified nodular densities are noted throug hout both lungs consistent with possible reticulonodular infiltrates or true pulmonary nodules. These nodules all measure less than 6 mm in size. Mediastinum: There is good visualization of the great vessels of the middle mediastinum. No evidenc e of mediastinal or hilar adenopathy/mass. The heart is enlarged. There is diffuse dilatation of the esophagus which contains debris suggestive of achalasia or achalasia-like process. This could be asse ssed as an outpatient if clinically indicated. Pleurae: No evidence of focal thickening or pleural effusion. Axillae: Unremarkable. Bony Structures: Degenerative changes are noted throughout the thoracic spine. Miscellaneous: The examination was extended to include the upper abdomen, and both adrenal glands ar e normal in size and configuration. Right subclavian pacemaker is noted with its tips in the right he art. CONCLUSION: 1. No evidence of acute intrathoracic trauma. 2. Scattered patchy opacities are noted within the right upper and lower lobes consistent with possi ble developing pneumonia. Clinical correlation is recommended. Minimal scattered patchiness is noted within the posterior lung bases. 3. Innumerable tiny noncalcified nodular densities are noted throughout both lungs consistent with p ossible reticulonodular infiltrates or true pulmonary nodules. These nodules all measure less than 6 mm in size. 4. Diffuse dilatation of the esophagus which contains debris suggestive of achalasia or achalasia-li ke process. This could be assessed as an outpatient if clinically indicated. 5. Cardiomegaly. 6. Degenerative changes throughout the thoracic spine. Electronically signed by: Irvin Thompson MD 12/08/2017 8:19 PM EDT
[2017-12-08 21:00] VITALS: BP 126/58; PULSE 70; RESP 14; O2SAT 97
[2017-12-08] MEDS ORDERED: AZITHROMYCIN INJ 500 MG in SODIUM CHLOR 0.9% 250 ML INJ 250 ML IV STA (22:34)
[2017-12-08] MEDS ORDERED: PIPERACIL-TAZO 4.5 GM PREMIX 100 ML IV STA (22:34)
--- NOTE | 2017-12-08 22:49 | PD ---
Physical Exam Date Seen by Provider: Dec 08, 2017 Time Seen by Provider: 19:00 Narrative The patient was signed out to me by Dr. Gin Rangel at change of shift. Please see her H&P for further details. This is a 77-year-old male who was found face down in his living facility. It was unknown whether he tripped or passed out. Patient had blood to his face. CT brain and neck are within normal limits. Data Data Last Documented VS Vital Signs Date Time Temp Pulse Resp B/P (MAP) Pulse Ox O2 Delivery O2 Flow Rate FiO2 12/08/17 17:58 69 16 135/61 (85) [address] Brain W/O Iv Contrast(Rout) (12/08/17 ) Ct Cerv Spine W/O Contrast (12/08/17 ) Ct Facial Bones W/O Iv Cont (12/08/17 ) Iv Access Insert/Monitor (12/08/17 18:03) Complete Blood Count With Diff (12/08/17 18:03) Comprehensive Metabolic Panel (12/08/17 18:03) Act Partial Throm Time (Ptt) (12/08/17 18:03) Prothrombin Time / Inr (Pt) (12/08/17 18:03) Type And Screen (12/08/17 18:03) Lactic Acid (12/08/17 18:21) Urinalysis - C+S If Indicated (12/08/17 18:32) Troponin I (12/08/17 18:03) Urine Culture (12/08/17 18:45) Ct Thorax/ Chest Wo Iv Contras (12/08/17 ) AGID (12/08/17 18:15) Direct Anastasiya (12/08/17 18:15) Red Blood Cells (Rbc) (12/08/17 18:15) Piperacil-Tazo 4.5 Gm Premix (Zosyn 4.5 (12/08/17 22:34) Azithromycin Inj (Zithromax Inj) (12/08/17 22:34) Admit Order (Ed Use Only) (12/08/17 22:41) Labs Laboratory Tests Test 12/08/17 18:15 12/08/17 18:45 12/08/17 20:55 White Blood Count 7.6 TH/MM3 Red Blood Count 2.67 MIL/MM3 Hemoglobin 7.5 GM/DL Hematocrit 22.9 % Mean Corpuscular Volume 85.7 FL Mean Corpuscular Hemoglobin 28.0 PG Mean Corpuscular Hemoglobin Concent 32.7 % Red Cell Distribution Width 16.0 % Platelet Count 220 TH/MM3 Mean Platelet Volume 6.3 FL Neutrophils (%) (Auto) 69.7 % Lymphocytes (%) (Auto) 10.2 % Monocytes (%) (Auto) 9.7 % Eosinophils (%) (Auto) 9.5 % Basophils (%) (Auto) 0.9 % Neutrophils # (Auto) 5.3 TH/MM3 Lymphocytes # (Auto) 0.8 TH/MM3 Monocytes # (Auto) 0.7 TH/MM3 Eosinophils # (Auto) 0.7 TH/MM3 Basophils # (Auto) 0.1 TH/MM3 CBC Comment DIFF FINAL Differential Comment Prothrombin Time 10.5 SEC Prothromb Time International Ratio 1.0 RATIO Activated Partial Thromboplast Time 29.2 SEC Blood Urea Nitrogen 40 MG/DL Creatinine 3.79 MG/DL Random Glucose 112 MG/DL Total Protein 7.6 GM/DL Albumin 2.3 GM/DL Calcium Level 10.3 MG/DL Alkaline Phosphatase 79 U/L Aspartate Amino Transf (AST/SGOT) 24 U/L Alanine Aminotransferase (ALT/SGPT) 15 U/L Total Bilirubin 0.3 MG/DL Sodium Level 143 MEQ/L Potassium Level 4.3 MEQ/L Chloride Level 110 MEQ/L Carbon Dioxide Level 22.8 MEQ/L Anion Gap 10 MEQ/L Estimat Glomerular Filtration Rate 16 ML/MIN Troponin I LESS THAN 0.02 NG/ML Urine Color YELLOW Urine Turbidity CLOUDY Urine pH 6.0 Urine Specific [place] 1.015 Urine Protein 100 mg/dL Urine Glucose (UA) NEG mg/dL Urine Ketones NEG mg/dL Urine Occult Blood MOD Urine Nitrite POS Urine Bilirubin NEG Urine Urobilinogen LESS THAN 2.0 MG/DL Urine Leukocyte Esterase LARGE Urine RBC 29 /hpf Urine WBC /hpf Urine WBC Clumps MANY Urine Squamous Epithelial Cells 1 /hpf Urine Mucus FEW /lpf Microscopic Urinalysis Comment CULTURE INDICATED Lactic Acid Level 0.7 mmol/L [facility] 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 Reviewed: Yes Supervised Visit with HAIDER: No Narrative Course Chest x-ray revealed questionable mass in the esophageal area. CT was recommended. Patient was noted to have a urinary tract infection. Patient also noted to have pneumonia on CT chest. There is also outpouching of his esophagus that was likely the finding on chest x-ray that was suspicious for mass. Patient has chronic anemia. He has chronic kidney disease. He also has a history of dementia. He has been started on Zosyn and azithromycin. He is allergic to cephalosporin and levofloxacin and moxifloxacin. Case was discussed with Dr. Galarza, [facility], patient will be admitted to the hospital as a full admit. Diagnosis Primary Impression: Syncope Additional Impressions: Pneumonia Cystitis Anemia Chronic kidney disease Dementia Atrial fibrillation Admitting Information Admitting Physician Requests: Admit Héctor Marshall MD Dec 08, 2017 22:49
--- NOTE | 2017-12-08 22:53 | HHI.HP ---
HPI Service [facility] Primary Care Physician Unknown Admission Diagnosis syncope, pneumonia, cystitis, anemia, chronic kidney disease, Diagnoses: (1) PNA (pneumonia) Diagnosis: Principal (2) UTI (urinary tract infection) Diagnosis: Principal (3) Nasal fracture Diagnosis: Principal (4) Esophageal dilatation Diagnosis: Principal (5) Anemia Diagnosis: Principal (6) DM (diabetes mellitus) Diagnosis: Principal Travel History International Travel<30 Days: No Contact w/Intl Traveler <30 Da: No Traveled to Known Affected Are: No History of Present Illness This is a 77-year-old male with a PMH of A. fib, HTN, Dementia, COPD, CHF (Echo 12/02/2017 w/ EF 40-45%) and DM who [facility] after being found down on the floor w/ bleeding from his nose. Pt unable to provide much history due to Dementia, however does complain of a headache. On arrival, BP 126/58, HR 70, O2 sat 97% RA, Afebrile. Hemoglobin 7.5, previously 7.4 on . Creatinine 3.79, previously 3.30 on 12/05/2017. Troponin negative. Lactic Acid normal. INR 1.0. UA positive for UTI. CT Head with no acute findings, acute left nasal bone fracture. CT C-spine possible mass of the esophagus and small area of pulmonary consolidation. CT Maxillofacial with mildly comminuted mildly displaced fracture of the nose. CT Chest with no trauma, scattered patchy opacities right upper and lower lobes, diffuse dilatation of the esophagus which contains debris suggestive of achalasia. S/p Zithro/Zosyn in ER. Review of Systems Except as stated in HPI: all other systems reviewed are Neg ROS: 14 point review of systems otherwise negative. Past Family Social History Past Medical History PMH: A. fib, HTN, Dementia, COPD, CHF (Echo 12/02/2017 w/ EF 40-45%) and DM Past Surgical History PAST SURGICAL HISTORY: Cholecystectomy, Hernia Repair Allergies: Coded Allergies: Influenza Virus Vaccines (Unverified Allergy, Unknown, 12/08/17) cephalexin (Unverified Allergy, Unknown, 12/08/17) levofloxacin (Unverified Allergy, Unknown, 12/08/17) moxifloxacin (Unverified Allergy, Unknown, 12/08/17) Family History PAST FAMILY HISTORY: Reviewed. No h/o DM or CAD Social History PAST SOCIAL HISTORY: Negative for alcohol, tobacco or drugs. Physical Exam Vital Signs Vital Signs Date Time Temp Pulse Resp B/P (MAP) Pulse Ox O2 Delivery O2 Flow Rate FiO2 12/08/17 17:58 69 16 135/61 (85) 96 Physical Exam PE: GENERAL: Elderly white male in no acute distress. HEENT: PERRLA, EOMI. No scleral icterus or conjunctival pallor. No lid lag or facial droop. Nasal laceration CARDIOVASCULAR: Regular rate and rhythm. No obvious murmurs to auscultation. No chest tenderness to palpation. RESPIRATORY: No obvious rhonchi or wheezing. Clear to auscultation. Breath sounds equal bilaterally. GASTROINTESTINAL: Abdomen soft, non-tender, nondistended. BS normal. MUSCULOSKELETAL: Extremities without clubbing, cyanosis, or edema. No obvious deformities. NEUROLOGICAL: Awake, alert. No focal neurologic deficits. Moving both upper and lower extremities spontaneously. Laboratory Laboratory Tests Test 12/08/17 18:15 12/08/17 18:45 12/08/17 20:55 White Blood Count 7.6 Red Blood Count 2.67 Hemoglobin 7.5 Hematocrit 22.9 Mean Corpuscular Volume 85.7 Mean Corpuscular Hemoglobin 28.0 Mean Corpuscular Hemoglobin Concent 32.7 Red Cell Distribution Width 16.0 Platelet Count 220 Mean Platelet Volume 6.3 Neutrophils (%) (Auto) 69.7 Lymphocytes (%) (Auto) 10.2 Monocytes (%) (Auto) 9.7 Eosinophils (%) (Auto) 9.5 Basophils (%) (Auto) 0.9 Neutrophils # (Auto) 5.3 Lymphocytes # (Auto) 0.8 Monocytes # (Auto) 0.7 Eosinophils # (Auto) 0.7 Basophils # (Auto) 0.1 CBC Comment DIFF FINAL Differential Comment Prothrombin Time 10.5 Prothromb Time International Ratio 1.0 Activated Partial Thromboplast Time 29.2 Blood Urea Nitrogen 40 Creatinine 3.79 Random Glucose 112 Total Protein 7.6 Albumin 2.3 Calcium Level 10.3 Alkaline Phosphatase 79 Aspartate Amino Transf (AST/SGOT) 24 Alanine Aminotransferase (ALT/SGPT) 15 Total Bilirubin 0.3 Sodium Level 143 Potassium Level 4.3 Chloride Level 110 Carbon Dioxide Level 22.8 Anion Gap 10 Estimat Glomerular Filtration Rate 16 Troponin I LESS THAN 0.02 Urine Color YELLOW Urine Turbidity CLOUDY Urine pH 6.0 Urine Specific [place] 1.015 Urine Protein 100 Urine Glucose (UA) NEG Urine Ketones NEG Urine Occult Blood MOD Urine Nitrite POS Urine Bilirubin NEG Urine Urobilinogen LESS THAN 2.0 Urine Leukocyte Esterase LARGE Urine RBC 29 Urine WBC Urine WBC Clumps MANY Urine Squamous Epithelial Cells 1 Urine Mucus FEW Microscopic Urinalysis Comment CULTURE INDICATED Lactic Acid Level 0.7 Date/Time Source Procedure Growth Status 12/08/17 18:45 Urine Catheterized Urine Urine Culture Pending Received Result Diagram: 12/08/17181412/08/171814 Gisel VTE Risk Assessment Andrerindeanna VTE Risk Assessment: No/Low Risk (score <= 1) Caprini Risk Assessment Model Point Value = 1 Point Value = 2 Point Value = 3 Point Value = 5 Age 41-60 Minor surgery BMI > 25 kg/m2 Swollen legs Varicose veins or History of unexplained or recurrent spontaneous Oral contraceptives or hormone replacement Sepsis (< 1 month) Serious lung disease, including pneumonia (< 1 month) Abnormal pulmonary function Acute myocardial infarction Congestive heart failure (< 1 month) History of inflammatory bowel disease Medical patient at bed rest Age 61-74 Arthroscopic surgery Major open surgery (> 45 min) Laparoscopic surgery (> 45 min) Malignancy Confined to bed (> 72 hours) Immobilizing plaster cast Central venous access Age >= 75 History of VTE Family history of VTE Factor V Leiden Prothrombin [id number] Lupus anticoagulant Anticardiolipin antibodies Elevated serum homocysteine Heparin-induced thrombocytopenia Other congenital or acquired thrombophilia Stroke (< 1 month) Elective arthroplasty Hip, pelvis, or leg fracture Acute spinal cord injury (< 1 month) Prophylaxis Regimen Total Risk Factor Score Risk Level Prophylaxis Regimen 0-1 Low Early ambulation 2 Moderate Order ONE of the following: *Sequential Compression Device (SCD) *Heparin 5000 units SQ BID 3-4 Higher Order ONE of the following medications: *Heparin 5000 units SQ TID *Enoxaparin/Lovenox 40 mg SQ daily (WT < 150 kg, CrCl > 30 mL/min) *Enoxaparin/Lovenox 30 mg SQ daily (WT < 150 kg, CrCl > 10-29 mL/min) *Enoxaparin/Lovenox 30 mg SQ BID (WT < 150 kg, CrCl > 30 mL/min) AND/OR *Sequential Compression Device (SCD) 5 or more Highest Order ONE of the following medications: *Heparin 5000 units SQ TID (Preferred with Epidurals) *Enoxaparin/Lovenox 40 mg SQ daily (WT < 150 kg, CrCl > 30 mL/min) *Enoxaparin/Lovenox 30 mg SQ daily (WT < 150 kg, CrCl > 10-29 mL/min) *Enoxaparin/Lovenox 30 mg SQ BID (WT < 150 kg, CrCl > 30 mL/min) AND *Sequential Compression Device (SCD) Assessment and Plan Problem List: (1) PNA (pneumonia) ICD Code: J18.9 - Pneumonia, unspecified organism (2) UTI (urinary tract infection) ICD Code: N39.0 - Urinary tract infection, site not specified (3) Nasal fracture ICD Code: S02.2XXA - Fracture of nasal bones, initial encounter for closed fracture (4) Esophageal dilatation ICD Code: K22.8 - Other specified diseases of esophagus (5) Anemia ICD Code: D64.9 - Anemia, unspecified (6) DM (diabetes mellitus) ICD Code: E11.9 - Type 2 diabetes mellitus without complications Assessment and Plan A/P: 1. PNA: CT Chest w/ scattered patchy opacities in RUL/RLL consistent w/ PNA, s /p Zithro/Zosyn in ER, will continue w/ IV Abx, DuoNeb prn. 2. UTI: U/a w/ UTI, continue IV Abx, follow up cultures, IVF for hydration- caution w/ h/o CHF, monitor I/O. 3. Nasal Fx: s/p fall in SNF, unwitnessed, pt unable to provide history, CT Head w/ no acute intracranial findings, acute nasal bone fracture, CT C-Spine w / no acute findings, CT Maxillofacial w/ mildly comminuted and mildly displaced fracture of the nose, images reviewed by me. Outpatient follow up. Analgesics/ antiemetics as needed for pain control. 4. Anemia: Hgb 7.5, previously 7.4 on 12/04/17, on Procrit, monitor Hgb/Hct, no active bleeding noted. 5. Esophageal Dilatation: CT C-Spine w/ possible esophageal mass, CT Chest w/ diffuse dilatation of esophagus w/ debris suggestive of achalasia, will Consult GI. Steven. 6. DM: Sliding scale w/ Accu-Cheks. 7. DVT Prophylaxis: SCD/Teds 8. Social work for d/c planning as needed 9. Case discussed w/ ER physician at length, labs/records/imaging reviewed by me. Physician Certification 2 Midnight Certification Type: Admission for Inpatient Services Order for Inpatient Services The services are ordered in accordance with Medicare regulations or non- Medicare payer requirements, as applicable. In the case of services not specified as inpatient-only, they are appropriately provided as inpatient services in accordance with the 2-midnight benchmark. Estimated LOS (days): 2 days is the estimated time the patient will need to remain in the hospital, assuming treatment plan goals are met and no additional complications. Post-Hospital Plan: Not yet determined Nivia Tracey MD Dec 08, 2017 22:52
[2017-12-08] MEDS ORDERED: SENNOSIDES 8.6 MG TAB PO PRN (23:00)
[2017-12-08] MEDS ORDERED: LACTULOSE SYRUP 20 GM/30 ML CUP PO PRN (23:00)
[2017-12-08] MEDS ORDERED: MAGNESIUM HYDROXIDE SUSP 30 ML CUP PO PRN (23:00)
[2017-12-08] MEDS ORDERED: RESP: ALBUTEROL 2.5 MG/IPRATROPIUM 0.5 MG NEB (PRN) NEB (23:00)
[2017-12-08] MEDS ORDERED: BISACODYL 10 MG SUPP RECTAL PRN (23:00)
[2017-12-08] MEDS ORDERED: ACETAMINOPHEN/HYDROcodone 325 MG/5 MG TAB PO PRN (23:00)
[2017-12-08] MEDS ORDERED: GLUCAGON 1 MG/ML VIAL OTHER PRN (23:00)
[2017-12-08] MEDS ORDERED: DEXTROSE 50% IN WATER 50 ML VIAL(D50) IV PUSH PRN (23:00)
[2017-12-08] MEDS ORDERED: SODIUM CHLORIDE 0.9% FLUSH 10 ML FLUSH IV FLUSH PRN (23:00)
[2017-12-08] MEDS ORDERED: ACETAMINOPHEN 325 MG TAB PO PRN (23:00)
[2017-12-08] MEDS ORDERED: ACETAMINOPHEN/HYDROcodone 325 MG/10 MG TAB PO PRN (23:00)
[2017-12-08] MEDS: METOCLOPRAMIDE HCL 10 MG/2 ML VIAL IV PUSH SCH (23:16)
[2017-12-08 23:41] VITALS: BP 163/67; PULSE 73; RESP 16; TEMP 98.3; O2SAT 93
[2017-12-09] VITALS (7 sets, daily range): BP systolic 160–187; BP diastolic 65–77; PULSE 65–76; RESP 16–22; TEMP 95.2–97.7; O2SAT 95–98
[2017-12-09] MEDS: SODIUM CHLOR 0.9% 1000 ML INJ 1,000 ML IV SCH ×2 (00:12→11:07)
[2017-12-09] MEDS: PIPERACIL-TAZO 2.25 GM PREMIX 50 ML IV SCH ×4 (03:32→22:02)
[2017-12-09] MEDS: METOCLOPRAMIDE HCL 10 MG/2 ML VIAL IV PUSH SCH ×3 (06:04→21:20)
[2017-12-09] MEDS: INSULIN ASPART SUPPLEMENTAL SCALE SQ SCH ×4 (08:00→21:00)
[2017-12-09] MEDS: DULoxetine HCl DR 20 MG CAP PO SCH (08:56)
[2017-12-09] MEDS: GABAPENTIN 100 MG CAP PO SCH (08:56)
[2017-12-09] MEDS: BACLOFEN 10 MG TAB PO SCH ×3 (08:56→16:08)
[2017-12-09] MEDS: CLOPIDOGREL 75 MG TAB PO SCH (08:56)
[2017-12-09] MEDS: SODIUM CHLORIDE 0.9% FLUSH 10 ML FLUSH IV FLUSH SCH ×2 (08:57→21:00)
[2017-12-09] MEDS ORDERED: DOCUSATE SODIUM 50 MG/SENNA 8.6 MG TAB PO SCH (09:00)
--- NOTE | 2017-12-09 09:01 | PD.CONS ---
HPI History of Present Illness This is a 77 year old M with PMH significant for a-fib, HTN, dementia, COPD, CHF , and DM who was brought to the ER from his rehab after being found down on the floor with bleeding from his nose. Pt unable to provide any history due to dementia, therefore history has been obtained through chart review. Our service has been consulted for CT chest findings of diffuse dilatation of the esophagus which contains debris suggestive of achalasia or achalasia-like process. No previous GI records in the computer. Attempted to contact NGUYỄNMarbin Smith listed on chart, no answer. Pt noted to be anemic, however hgb was the same November 23 during previous admission. Does have history of GIB listed in chart, no obvious bleeding at this time. (Michelle Peterson) PFSH Past Medical History A-fib, HTN, Dementia, COPD, CHF (Echo 12/02/2017 w/ EF 40-45%), DM, GIB Past Surgical History PAST SURGICAL HISTORY: Cholecystectomy, Hernia Repair (Michelle Peterson) Coded Allergies: Influenza Virus Vaccines (Unverified Allergy, Unknown, 12/08/17) cephalexin (Unverified Allergy, Unknown, 12/08/17) levofloxacin (Unverified Allergy, Unknown, 12/08/17) moxifloxacin (Unverified Allergy, Unknown, 12/08/17) Family History PAST FAMILY HISTORY: Reviewed. No h/o DM or CAD Social History PAST SOCIAL HISTORY: Negative for alcohol, tobacco or drugs. (Michelle Peterson) Review of Systems Unable to obtain (Michelle Peterson) GI Exam Vitals I&O Vital Signs Date Time Temp Pulse Resp B/P (MAP) Pulse Ox O2 Delivery O2 Flow Rate FiO2 12/09/17 04:28 76 16 160/68 (98) 97 12/08/17 23:41 98.3 73 16 163/67 (99) 93 12/08/17 23:35 12/08/17 21:00 70 14 126/58 (80) 97 12/08/17 17:58 69 16 135/61 (85) 96 I/O 12/08/17 12/08/17 12/08/17 12/09/17 12/09/17 12/09/17 07:00 15:00 23:00 07:00 15:00 23:00 Output Total 525 ml Balance -525 ml Output Urine Total 525 ml Imaging Last Impressions Maxillofacial CT 12/08/17 0000 Signed Impressions: CONCLUSION: 1. Mildly comminuted and mildly displaced fracturing of the nose as above. 2. Orbits and other facial bones are intact. Head CT 12/08/17 0000 Signed Impressions: CONCLUSION: 1. No acute intracranial abnormality. 2. Mild stable cerebral atrophy. 3. Acute left nasal bone fracture. Chest CT 12/08/17 0000 Signed Impressions: CONCLUSION: 1. No evidence of acute intrathoracic trauma. 2. Scattered patchy opacities are noted within the right upper and lower lobes consistent with possible developing pneumonia. Clinical correlation is recomme nded. Minimal scattered patchiness is noted within the posterior lung bases. 3. Innumerable tiny noncalcified nodular densities are noted throughout both l ungs consistent with possible reticulonodular infiltrates or true pulmonary nod ules. These nodules all measure less than 6 mm in size. 4. Diffuse dilatation of the esophagus which contains debris suggestive of ach alasia or achalasia-like process. This could be assessed as an outpatient if cl inically indicated. 5. Cardiomegaly. 6. Degenerative changes throughout the thoracic spine. Cervical Spine CT 12/08/17 Signed Impressions: CONCLUSION: 1. No fracture or subluxation of the cervical spine. 2. Multilevel degenerative changes with associated foraminal and spinal stenos is as above. 3. Possible mass of the esophagus just below the thoracic inlet. Small area of pulmonary consolidation of the visualized right lung apex. A dedicated CT of t he chest is suggested, preferably with intravenous contrast. It may also be pru dent to administer some oral contrast immediately before scanning the chest. Laboratory Test 12/08/17 18:15 12/08/17 18:45 12/08/17 20:55 White Blood Count 7.6 TH/MM3 Red Blood Count 2.67 MIL/MM3 Hemoglobin 7.5 GM/DL Hematocrit 22.9 % Mean Corpuscular Volume 85.7 FL Mean Corpuscular Hemoglobin 28.0 PG Mean Corpuscular Hemoglobin Concent 32.7 % Red Cell Distribution Width 16.0 % Platelet Count 220 TH/MM3 Mean Platelet Volume 6.3 FL Neutrophils (%) (Auto) 69.7 % Lymphocytes (%) (Auto) 10.2 % Monocytes (%) (Auto) 9.7 % Eosinophils (%) (Auto) 9.5 % Basophils (%) (Auto) 0.9 % Neutrophils # (Auto) 5.3 TH/MM3 Lymphocytes # (Auto) 0.8 TH/MM3 Monocytes # (Auto) 0.7 TH/MM3 Eosinophils # (Auto) 0.7 TH/MM3 Basophils # (Auto) 0.1 TH/MM3 CBC Comment DIFF FINAL Differential Comment Prothrombin Time 10.5 SEC Prothromb Time International Ratio 1.0 RATIO Activated Partial Thromboplast Time 29.2 SEC Blood Urea Nitrogen 40 MG/DL Creatinine 3.79 MG/DL Random Glucose 112 MG/DL Total Protein 7.6 GM/DL Albumin 2.3 GM/DL Calcium Level 10.3 MG/DL Alkaline Phosphatase 79 U/L Aspartate Amino Transf (AST/SGOT) 24 U/L Alanine Aminotransferase (ALT/SGPT) 15 U/L Total Bilirubin 0.3 MG/DL Sodium Level 143 MEQ/L Potassium Level 4.3 MEQ/L Chloride Level 110 MEQ/L Carbon Dioxide Level 22.8 MEQ/L Anion Gap 10 MEQ/L Estimat Glomerular Filtration Rate 16 ML/MIN Troponin I LESS THAN 0.02 NG/ML Urine Color YELLOW Urine Turbidity CLOUDY Urine pH 6.0 Urine Specific [place] 1.015 Urine Protein 100 mg/dL Urine Glucose (UA) NEG mg/dL Urine Ketones NEG mg/dL Urine Occult Blood MOD Urine Nitrite POS Urine Bilirubin NEG Urine Urobilinogen LESS THAN 2.0 MG/DL Urine Leukocyte Esterase LARGE Urine RBC 29 /hpf Urine WBC /hpf Urine WBC Clumps MANY Urine Squamous Epithelial Cells 1 /hpf Urine Mucus FEW /lpf Microscopic Urinalysis Comment CULTURE INDICATED Lactic Acid Level 0.7 mmol/L Date/Time Source Procedure Growth Status 12/08/17 18:45 Urine Catheterized Urine Urine Culture Pending Received Physical Examination HEENT: Normocephalic; atraumatic CHEST: Even/unlabored CARDIAC: Irregular ABDOMEN: Obese, soft, nontender, bowel sounds active SKIN: Normal; no rash; no jaundice. VETERINARY RECEPTIONIST: Lethargic (Michelle Peterson) Assessment and Plan Plan Assessment: - Achalasia with dilated esophagus on CT chest Chest CT WO IV contrast (12/08) --> Diffuse dilatation of the esophagus which contains debris suggestive of achalasia or achalasia-like process. Also notes possibly developing pneumonia, given above findings possibly from aspiration Pt unable to provide history due to dementia. No previous GI records in chart. Modified barium swallow done in September 2016 --> Tolerated thin liquids and soft solids without any overt symptoms of aspiration Attempted to contact LUIS Smith listed in chart, no answer - Anemia- normocytic- previous admission in November and hgb was 7.7 on November 23, so has been stable Reported history of GIB in chart, no obvious bleeding at this time Plan: EGD with dilatation tomorrow if able to get consent Obtain consent NPO after [place] RADIOTELEGRAPH OPERATOR evaluate Further recommendations based on findings of above Pt has been seen and examined by myself and Dr. Anna and this note is written on his behalf (Michelle Peterson) Physician Comments Seen with Michelle, plan as above. Will obtain consent for EGD tomorrow. Further recommendations to follow. Thank you for the consult, (Srikanth Anna MD) Michelle Peterson Dec 09, 2017 09:01 Srikanth Anna MD Dec 09, 2017 21:17
[2017-12-09] MEDS ORDERED: hydrALAZINE HCL 25 MG TAB PO PRN (10:15)
--- NOTE | 2017-12-09 10:17 | HHI.PR ---
Subjective Remarks Follow-up pneumonia/UTI/achalasia with dilatation December 09, 2017-patient seen and examined, patient is currently moaning in pain. Denies any shortness of breath. Currently afebrile Objective Vitals Vital Signs Date Time Temp Pulse Resp B/P (MAP) Pulse Ox O2 Delivery O2 Flow Rate FiO2 12/09/17 08:00 97.0 71 20 187/77 (113) 97 12/09/17 04:28 76 16 160/68 (98) 97 12/08/17 23:41 98.3 73 16 163/67 (99) 93 12/08/17 23:35 12/08/17 21:00 70 14 126/58 (80) 97 12/08/17 17:58 69 16 135/61 (85) 96 I/O 12/08/17 12/08/17 12/08/17 12/09/17 12/09/17 12/09/17 06:59 14:59 22:59 06:59 14:59 22:59 Output Total 525 ml Balance -525 ml Output Urine Total 525 ml Result Diagram: 12/08/17181412/08/171814 Imaging Last Impressions Maxillofacial CT 12/08/17 0000 Signed Impressions: CONCLUSION: 1. Mildly comminuted and mildly displaced fracturing of the nose as above. 2. Orbits and other facial bones are intact. Head CT 12/08/17 0000 Signed Impressions: CONCLUSION: 1. No acute intracranial abnormality. 2. Mild stable cerebral atrophy. 3. Acute left nasal bone fracture. Chest CT 12/08/17 0000 Signed Impressions: CONCLUSION: 1. No evidence of acute intrathoracic trauma. 2. Scattered patchy opacities are noted within the right upper and lower lobes consistent with possible developing pneumonia. Clinical correlation is recomme nded. Minimal scattered patchiness is noted within the posterior lung bases. 3. Innumerable tiny noncalcified nodular densities are noted throughout both l ungs consistent with possible reticulonodular infiltrates or true pulmonary nod ules. These nodules all measure less than 6 mm in size. 4. Diffuse dilatation of the esophagus which contains debris suggestive of ach alasia or achalasia-like process. This could be assessed as an outpatient if cl inically indicated. 5. Cardiomegaly. 6. Degenerative changes throughout the thoracic spine. Cervical Spine CT 12/08/17 0000 Signed Impressions: CONCLUSION: 1. No fracture or subluxation of the cervical spine. 2. Multilevel degenerative changes with associated foraminal and spinal stenos is as above. 3. Possible mass of the esophagus just below the thoracic inlet. Small area of pulmonary consolidation of the visualized right lung apex. A dedicated CT of t he chest is suggested, preferably with intravenous contrast. It may also be pru dent to administer some oral contrast immediately before scanning the chest. Objective Remarks GENERAL: NAD SKIN: Warm and dry. HEAD: Normocephalic. EYES: No scleral icterus. No injection or drainage. NECK: Supple, trachea midline. No JVD or lymphadenopathy. CARDIOVASCULAR: Regular rate and rhythm with II/ CECIL . RESPIRATORY: Breath sounds equal bilaterally. No accessory muscle use. GASTROINTESTINAL: Abdomen soft, non-tender, nondistended. MUSCULOSKELETAL: No cyanosis, or edema. BACK: Nontender without obvious deformity. No CVA tenderness. A/P Problem List: (1) PNA (pneumonia) ICD Code: J18.9 - Pneumonia, unspecified organism (2) UTI (urinary tract infection) ICD Code: N39.0 - Urinary tract infection, site not specified (3) Nasal fracture ICD Code: S02.2XXA - Fracture of nasal bones, initial encounter for closed fracture (4) Esophageal dilatation ICD Code: K22.8 - Other specified diseases of esophagus (5) Anemia ICD Code: D64.9 - Anemia, unspecified (6) DM (diabetes mellitus) ICD Code: E11.9 - Type 2 diabetes mellitus without complications Assessment and Plan 77-year-old man with 1. PNA: CT Chest w/ scattered patchy opacities in RUL/RLL consistent w/ PNA, s /p Zithro/Zosyn in ER, continue w/ IV Abx, DuoNeb prn. 2. UTI: U/a w/ UTI, continue IV Abx, follow up cultures, IVF for hydration- caution w/ h/o CHF, monitor I/O. 3. Nasal Fx: s/p fall in SNF, unwitnessed, pt unable to provide history, CT Head w/ no acute intracranial findings, acute nasal bone fracture, CT C-Spine w / no acute findings, CT Maxillofacial w/ mildly comminuted and mildly displaced fracture of the nose. Outpatient follow up. Analgesics/antiemetics as needed for pain control. 4. Anemia: Hgb 7.5, previously 7.4 on 12/04/17, on Procrit, monitor Hgb/Hct, no active bleeding noted. Patient is a Jehovah witness, therefore any blood transfusion will be refused by him 5. Achalasia with esophageal Dilatation: CT C-Spine w/ possible esophageal mass, CT Chest w/ diffuse dilatation of esophagus w/ debris suggestive of achalasia. Appreciate input from GI who plan possible EGD with dilatation tomorrow December 10, 2017. Continue with Reglan. 6. DM: Sliding scale w/ Accu-Cheks. 7. DVT Prophylaxis: SCD/Isac Villagran MD Dec 09, 2017 10:17
[2017-12-09] MEDS: FLUTICASONE 100 MCG/VILANTEROL 25 MCG INHALER INH SCH (11:08)
[2017-12-09 12:12] LABS: AUTOMATED NEUTROPHIL # 5.1 TH/MM3 (1.8-7.7); BASOPHIL # 0.1 TH/MM3 (0-0.2); BASOPHIL % 1.1 % (0.0-2.0); EOSINOPHIL # 0.8 TH/MM3 (0-0.4); EOSINOPHIL % 11.3 % (0.0-4.0); HEMATOCRIT 22.5 % (39.0-51.0); HEMOGLOBIN 7.4 GM/DL (13.0-17.0); LYMPH % 8.3 % (9.0-44.0); LYMPHOCYTE # 0.6 TH/MM3 (1.0-4.8); MEAN CELL VOLUME 85.6 FL (80.0-100.0); MEAN CORPUSCULAR HEMOGLOBIN 28.2 PG (27.0-34.0); MEAN CORPUSCULAR HGB CONC 32.9 % (32.0-36.0); MEAN PLATELET VOLUME 6.5 FL (7.0-11.0); MONO % 8.2 % (0.0-8.0); MONOCYTE # 0.6 TH/MM3 (0-0.9); NEUT % 71.1 % (16.0-70.0); PLATELET COUNT 209 TH/MM3 (150-450); RED BLOOD COUNT 2.62 MIL/MM3 (4.50-5.90); RED CELL DISTRIBUTION WIDTH 15.9 % (11.6-17.2); WHITE BLOOD COUNT 7.2 TH/MM3 (4.0-11.0)
[2017-12-09 12:14] LABS: ALBUMIN 2.3 GM/DL (3.4-5.0); AST (GOT) 18 U/L (15-37); BICARBONATE 22.3 MEQ/L (21.0-32.0); BLOOD UREA NITROGEN 37 MG/DL (7-18); CALCIUM 9.8 MG/DL (8.5-10.1); CHLORIDE 113 MEQ/L (98-107); CREATININE 3.72 MG/DL (0.60-1.30); GLOMERULAR FILTRATION RATE 16 ML/MIN (>89); GLUCOSE,RANDOM 128 MG/DL (74-106); SODIUM (NA) 144 MEQ/L (136-145)
[2017-12-09 12:17] LABS: ALKALINE PHOSPHATASE 81 U/L (45-117); ALT (GPT) 14 U/L (12-78); TOTAL BILIRUBIN ADULT 0.3 MG/DL (0.2-1.0); TOTAL PROTEIN 7.4 GM/DL (6.4-8.2)
[2017-12-09] MEDS ORDERED: POVIDONE IODINE 5% (ANTISEPSIS KIT) 4 APPLICATIONS EACH NARE PRN (13:30)
[2017-12-09] MEDS ORDERED: SODIUM CHLORID 0.9% 500 ML IV PRN (13:30)
[2017-12-09] MEDS ORDERED: CHLORHEXIDINE GLUCONATE 2 % 1 PACK (2 CLOTHS) TOPICAL PRN (13:30)
[2017-12-09] MEDS ORDERED: LACTATED RINGER'S 1000 ML IV PRN (13:30)
[2017-12-09] MEDS ORDERED: METOPROLOL TARTRATE 25 MG TAB PO PRN (13:30)
[2017-12-09] MEDS: AZITHROMYCIN INJ 500 MG in SODIUM CHLOR 0.9% 250 ML INJ 250 ML IV SCH (21:18)
[2017-12-09] MEDS: TAMSULOSIN HCL 0.4 MG CAP PO SCH (21:20)
[2017-12-09] MEDS: ATORVASTATIN 40 MG TAB PO SCH (21:20)
[2017-12-09] MEDS: RESP: ALBUTEROL 2.5 MG/IPRATROPIUM 0.5 MG NEB (SCH) NEB (22:19)
[2017-12-10] VITALS (24 sets, daily range): BP systolic 126–169; BP diastolic 60–70; PULSE 60–94; RESP 18–20; TEMP 97.2–98.8; O2SAT 98–100
[2017-12-10] MEDS ORDERED: hydrALAZINE HCL 20 MG/ML VIAL IV PUSH PRN
[2017-12-10] MEDS ORDERED: LABETALOL HCL 100 MG/20 ML VIAL IV PUSH PRN (00:15)
[2017-12-10] MEDS: MORPHINE SULFATE 4 MG/ML INJ IV PUSH PRN ×2 (00:34→03:32)
[2017-12-10] MEDS: SODIUM CHLOR 0.9% 1000 ML INJ 1,000 ML IV SCH (00:36)
[2017-12-10] MEDS: PIPERACIL-TAZO 2.25 GM PREMIX 50 ML IV SCH ×4 (03:32→22:42)
[2017-12-10] MEDS: RESP: ALBUTEROL 2.5 MG/IPRATROPIUM 0.5 MG NEB (SCH) NEB ×4 (05:05→22:17)
[2017-12-10] MEDS: METOCLOPRAMIDE HCL 10 MG/2 ML VIAL IV PUSH SCH ×3 (07:00→22:47)
[2017-12-10] MEDS: INSULIN ASPART SUPPLEMENTAL SCALE SQ SCH ×4 (08:00→20:08)
[2017-12-10] MEDS: BACLOFEN 10 MG TAB PO SCH ×3 (08:48→16:10)
[2017-12-10] MEDS: SODIUM CHLORIDE 0.9% FLUSH 10 ML FLUSH IV FLUSH SCH ×2 (08:48→22:42)
[2017-12-10] MEDS: GABAPENTIN 100 MG CAP PO SCH (08:48)
[2017-12-10] MEDS: FLUTICASONE 100 MCG/VILANTEROL 25 MCG INHALER INH SCH (08:48)
[2017-12-10] MEDS: DULoxetine HCl DR 20 MG CAP PO SCH (08:48)
[2017-12-10] MEDS: CLOPIDOGREL 75 MG TAB PO SCH (08:49)
--- NOTE | 2017-12-10 08:58 | HHI.PR ---
Subjective Remarks Follow-up pneumonia/UTI/achalasia with dilatation December 09, 2017-patient seen and examined, patient is currently moaning in pain. Denies any shortness of breath. Currently afebrile December 10, 2017-patient seen and examined, currently lethargic;written for BIPAP overnight however patient has facial broken bone.+ Goggly sounds Objective Vitals Vital Signs Date Time Temp Pulse Resp B/P (MAP) Pulse Ox O2 Delivery O2 Flow Rate FiO2 12/10/17 08:09 100 Nasal Cannula 3.00 12/10/17 08:00 60 12/10/17 07:15 98.2 76 20 149/68 (95) 100 12/10/17 07:15 64 12/10/17 07:15 100 Bi-Pap 12/10/17 06:24 75 12/10/17 05:05 98 25 12/10/17 05:00 61 12/10/17 03:00 69 12/10/17 03:00 97.2 62 18 126/60 (82) 99 12/10/17 03:00 99 Bi-Pap 25 12/10/17 00:27 99 25 12/10/17 00:00 99 Bi-Pap 25 12/09/17 23:35 76 12/09/17 23:30 97.7 66 22 160/65 (96) 96 12/09/17 22:02 98 21 12/09/17 19:51 65 18 171/72 (105) 96 12/09/17 12:00 95.2 70 20 168/72 (104) 95 I/O 12/09/17 12/09/17 12/09/17 12/10/17 12/10/17 12/10/17 07:00 15:00 23:00 07:00 15:00 23:00 Intake Total 380 ml 700 ml 539 ml Output Total 525 ml 600 ml Balance -525 ml 380 ml 100 ml 539 ml Intake Oral 380 ml 0 ml IV Total 700 ml 539 ml Output Urine Total 525 ml 600 ml # Bowel Movements 0 Result Diagram: 12/09/17 1115 12/09/17 1115 Imaging Last Impressions Maxillofacial CT 12/08/17 0000 Signed Impressions: CONCLUSION: 1. Mildly comminuted and mildly displaced fracturing of the nose as above. 2. Orbits and other facial bones are intact. Head CT 12/08/17 Signed Impressions: CONCLUSION: 1. No acute intracranial abnormality. 2. Mild stable cerebral atrophy. 3. Acute left nasal bone fracture. Chest CT 12/08/17 Signed Impressions: CONCLUSION: 1. No evidence of acute intrathoracic trauma. 2. Scattered patchy opacities are noted within the right upper and lower lobes consistent with possible developing pneumonia. Clinical correlation is recomme nded. Minimal scattered patchiness is noted within the posterior lung bases. 3. Innumerable tiny noncalcified nodular densities are noted throughout both l ungs consistent with possible reticulonodular infiltrates or true pulmonary nod ules. These nodules all measure less than 6 mm in size. 4. Diffuse dilatation of the esophagus which contains debris suggestive of ach alasia or achalasia-like process. This could be assessed as an outpatient if cl inically indicated. 5. Cardiomegaly. 6. Degenerative changes throughout the thoracic spine. Cervical Spine CT 12/08/17 Signed Impressions: CONCLUSION: 1. No fracture or subluxation of the cervical spine. 2. Multilevel degenerative changes with associated foraminal and spinal stenos is as above. 3. Possible mass of the esophagus just below the thoracic inlet. Small area of pulmonary consolidation of the visualized right lung apex. A dedicated CT of t he chest is suggested, preferably with intravenous contrast. It may also be pru dent to administer some oral contrast immediately before scanning the chest. Objective Remarks GENERAL: Lethargic SKIN: Warm and dry. HEAD: Normocephalic. EYES: No scleral icterus. No injection or drainage. NECK: Supple, trachea midline. No JVD or lymphadenopathy. CARDIOVASCULAR: Regular rate and rhythm with II/ CECIL . RESPIRATORY: Breath sounds decrease bilaterally. No accessory muscle use. GASTROINTESTINAL: Abdomen soft, non-tender, nondistended. MUSCULOSKELETAL: No cyanosis, + edema. BACK: Nontender without obvious deformity. No CVA tenderness. A/P Problem List: (1) PNA (pneumonia) ICD Code: J18.9 - Pneumonia, unspecified organism (2) UTI (urinary tract infection) ICD Code: N39.0 - Urinary tract infection, site not specified (3) Nasal fracture ICD Code: S02.2XXA - Fracture of nasal bones, initial encounter for closed fracture (4) Esophageal dilatation ICD Code: K22.8 - Other specified diseases of esophagus (5) Anemia ICD Code: D64.9 - Anemia, unspecified (6) DM (diabetes mellitus) ICD Code: E11.9 - Type 2 diabetes mellitus without complications Assessment and Plan 77-year-old man with 1. PNA: CT Chest w/ scattered patchy opacities in RUL/RLL consistent w/ PNA, s /p Zithro/Zosyn in ER, continue w/ IV Abx, DuoNeb prn. 2. UTI: U/a w/ UTI, continue IV Abx, follow up cultures, monitor I/O. 3. Nasal Fx: s/p fall in SNF, unwitnessed, pt unable to provide history, CT Head w/ no acute intracranial findings, acute nasal bone fracture, CT C-Spine w / no acute findings, CT Maxillofacial w/ mildly comminuted and mildly displaced fracture of the nose. Outpatient follow up. Analgesics/antiemetics as needed for pain control.D/c Morphine 2/2 encephalopathy. No BIPAP overnight d/t nasal fx 4. Anemia: Hgb 7.5, previously 7.4 on 12/04/17, on Procrit, monitor Hgb/Hct, no active bleeding noted. Patient is a Jehovah witness, therefore any blood transfusion will be refused by him 5. Achalasia with esophageal Dilatation: CT C-Spine w/ possible esophageal mass, CT Chest w/ diffuse dilatation of esophagus w/ debris suggestive of achalasia. Appreciate input from GI who plan possible EGD with dilatation today 12/10/17. Continue with Reglan. 6. DM: Sliding scale w/ Accu-Cheks. 7. DVT Prophylaxis: SCD/Teds 8. Respiratory distress: Stat CXR, BNP, HLIV, d/c Morphine Isac Wills MD Dec 10, 2017 08:58
--- NOTE | 2017-12-10 11:26 | RADRPT ---
EXAM DATE: 12/10/2017 10:14 AM EDT AGE/SEX: 77 years / Male INDICATIONS: Shortness of breath. CLINICAL DATA: This is the patient's subsequent encounter. Patient reports that signs and symptoms h ave been present for 2 days and indicates a pain score of 0/10. MEDICAL/SURGICAL HISTORY: Cardiovascular disease. Diabetes mellitus type II. Cholecystectomy. COMPARISON: [facility] – [place], CHEST SINGLE AP, 11/24/2017. . FINDINGS: A single AP view of the chest demonstrates the lungs to be symmetrically aerated without evidence of mass, infiltrate or effusion. The cardiomediastinal contours are unremarkable. Osseous structures a re intact. There is diffuse pulmonary vascular prominence. Right subclavian bipolar pacemaker CONCLUSION: Diffuse pulmonary vascular prominence, unchanged. Electronically signed by: Juan Robles MD 12/10/2017 11:25 AM EDT
[2017-12-10] MEDS ORDERED: FUROSEMIDE 20 MG/2 ML VIAL IV PUSH ONE (12:15)
--- NOTE | 2017-12-10 13:02 | HHI.GIFU ---
Subjective Remarks Pt now with irregular breathing He was on Bipap but this was discontinued due to nasal fracture At this time pt is too unstable for GI procedures Discussed with RN and adopted daughter Macy at bedside We will sign off, but available if needed (Michelle Peterson) Objective Vitals I&O Vital Signs Date Time Temp Pulse Resp B/P (MAP) Pulse Ox O2 Delivery O2 Flow Rate FiO2 12/10/17 12:00 66 12/10/17 11:00 100 Nasal Cannula 2.00 12/10/17 11:00 60 12/10/17 11:00 98.0 62 20 158/70 (99) 100 12/10/17 10:43 99 Nasal Cannula 1.00 12/10/17 10:00 60 12/10/17 09:00 60 12/10/17 08:09 100 Nasal Cannula 3.00 12/10/17 08:00 60 12/10/17 07:15 98.2 76 20 149/68 (95) 100 12/10/17 07:15 64 12/10/17 07:15 100 Bi-Pap 12/10/17 06:24 75 12/10/17 05:05 98 25 12/10/17 05:00 61 12/10/17 03:00 69 12/10/17 03:00 97.2 62 18 126/60 (82) 99 12/10/17 03:00 99 Bi-Pap 25 12/10/17 00:27 99 25 12/10/17 00:00 99 Bi-Pap 25 12/09/17 23:35 76 12/09/17 23:30 97.7 66 22 160/65 (96) 96 12/09/17 22:02 98 21 12/09/17 19:51 65 18 171/72 (105) 96 I/O 12/09/17 12/09/17 12/09/17 12/10/17 12/10/17 12/10/17 07:00 15:00 23:00 07:00 15:00 23:00 Intake Total 380 ml 700 ml 539 ml Output Total 525 ml 600 ml Balance -525 ml 380 ml 100 ml 539 ml Intake Oral 380 ml 0 ml IV Total 700 ml 539 ml Output Urine Total 525 ml 600 ml # Bowel Movements 0 Laboratory Laboratory Tests Test 12/09/17 22:10 12/10/17 09:40 Blood Gas Puncture Site LT RADIAL Blood Gas Patient Temperature 98.6 Blood Gas HCO3 25 Blood Gas Base Excess -0.4 Blood Gas Oxygen Saturation 92 Arterial Blood pH 7.34 Arterial Blood Partial Pressure CO2 47 Arterial Blood Partial Pressure O2 70 Arterial Blood Oxygen Content 8.9 Arterial Blood Carboxyhemoglobin 1.5 Arterial Blood Methemoglobin 0.6 Blood Gas Hemoglobin 6.8 Oxygen Delivery Device ROOM AIR Blood Gas Inspired Oxygen 21 B-Type Natriuretic Peptide 232 Date/Time Source Procedure Growth Status 12/08/17 18:45 Urine Catheterized Urine Urine Culture - Preliminary Gram Negative Rolan Resulted Imaging Last Impressions Chest X-Ray 12/10/17 0000 Signed Impressions: CONCLUSION: Diffuse pulmonary vascular prominence, unchanged. Maxillofacial CT 12/08/17 Signed Impressions: CONCLUSION: 1. Mildly comminuted and mildly displaced fracturing of the nose as above. 2. Orbits and other facial bones are intact. Head CT 12/08/17 Signed Impressions: CONCLUSION: 1. No acute intracranial abnormality. 2. Mild stable cerebral atrophy. 3. Acute left nasal bone fracture. Chest CT 12/08/17 Signed Impressions: CONCLUSION: 1. No evidence of acute intrathoracic trauma. 2. Scattered patchy opacities are noted within the right upper and lower lobes consistent with possible developing pneumonia. Clinical correlation is recomme nded. Minimal scattered patchiness is noted within the posterior lung bases. 3. Innumerable tiny noncalcified nodular densities are noted throughout both l ungs consistent with possible reticulonodular infiltrates or true pulmonary nod ules. These nodules all measure less than 6 mm in size. 4. Diffuse dilatation of the esophagus which contains debris suggestive of ach alasia or achalasia-like process. This could be assessed as an outpatient if cl inically indicated. 5. Cardiomegaly. 6. Degenerative changes throughout the thoracic spine. Cervical Spine CT 12/08/17 Signed Impressions: CONCLUSION: 1. No fracture or subluxation of the cervical spine. 2. Multilevel degenerative changes with associated foraminal and spinal stenos is as above. 3. Possible mass of the esophagus just below the thoracic inlet. Small area of pulmonary consolidation of the visualized right lung apex. A dedicated CT of t he chest is suggested, preferably with intravenous contrast. It may also be pru dent to administer some oral contrast immediately before scanning the chest. Physical Exam HEENT: Normocephalic; atraumatic CHEST: Irregular CARDIAC: Diminished BS ABDOMEN: Round, soft, bowel sounds active EXTREMITIES: BLE edema. SKIN: Normal; no rash; no jaundice. 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 Also notes possibly developing pneumonia, given above findings possibly from aspiration Pt unable to provide history due to dementia. No previous GI records in chart. Modified barium swallow done in September 2016 --> Tolerated thin liquids and soft solids without any overt symptoms of aspiration Attempted to contact LUIS Smith listed in chart, no answer - Anemia- normocytic- previous admission in November and hgb was 7.7 on November 23, so has been stable Reported history of GIB in chart, no obvious bleeding at this time (12/10) EGD with dilatation cancelled due to change in patients status, currently with diminished BS and irregular breathing pattern. Was on Bipap, this was discontinued due to nasal fracture. He was transferred from CDU to step down. Discuss with daughter at bedside Macy and RN. We will sign off, available if needed Plan: Diet per LETTER OF CREDIT CLERK Too unstable for GI procedures We will sign off, please reconsult as needed If discharged, have pt follow up with GI after DC Pt has been seen and examined by myself and Dr. Anna and this note is written on his behalf (Michelle Peterson) Physician Comments Events during hospitalization noted. Will postponed endoscopic evaluation for now. Please notify us if procedure is needed after stabilization. (Srikanht Anna MD) Michelle Peterson Dec 10, 2017 13:02 Srikanth Anna MD Dec 10, 2017 14:16
[2017-12-10] MEDS: ATORVASTATIN 40 MG TAB PO SCH (20:08)
[2017-12-10] MEDS: TAMSULOSIN HCL 0.4 MG CAP PO SCH (20:09)
[2017-12-10] MEDS: AZITHROMYCIN INJ 500 MG in SODIUM CHLOR 0.9% 250 ML INJ 250 ML IV SCH (22:43)
[2017-12-11] VITALS (11 sets, daily range): BP systolic 140–166; BP diastolic 60–79; PULSE 72–89; RESP 16–18; TEMP 97.9–98.8; O2SAT 94–100
[2017-12-11] MEDS: PIPERACIL-TAZO 2.25 GM PREMIX 50 ML IV SCH ×3 (03:36→21:59)
[2017-12-11] MEDS: RESP: ALBUTEROL 2.5 MG/IPRATROPIUM 0.5 MG NEB (SCH) NEB ×4 (03:48→21:43)
[2017-12-11] MEDS: METOCLOPRAMIDE HCL 10 MG/2 ML VIAL IV PUSH SCH ×3 (06:22→22:00)
[2017-12-11] MEDS: BACLOFEN 10 MG TAB PO SCH ×2 (08:55→15:50)
[2017-12-11] MEDS: GABAPENTIN 100 MG CAP PO SCH (08:55)
[2017-12-11] MEDS: DULoxetine HCl DR 20 MG CAP PO SCH (08:56)
[2017-12-11] MEDS: SODIUM CHLORIDE 0.9% FLUSH 10 ML FLUSH IV FLUSH SCH ×2 (08:56→22:00)
[2017-12-11] MEDS: CLOPIDOGREL 75 MG TAB PO SCH (08:57)
[2017-12-11] MEDS: FLUTICASONE 100 MCG/VILANTEROL 25 MCG INHALER INH SCH (09:00)
--- NOTE | 2017-12-11 10:42 | HHI.PR ---
Subjective Remarks Follow-up pneumonia/UTI/achalasia with dilatation December 09, 2017-patient seen and examined, patient is currently moaning in pain. Denies any shortness of breath. Currently afebrile December 10, 2017-patient seen and examined, currently lethargic;written for BIPAP overnight however patient has facial broken bone.+ Goggly sounds December 12, 2027-patient seen and examined, appear much more alert today and patient was able to take p.o. he was able to seat at the edge of the bed Objective Vitals Vital Signs Date Time Temp Pulse Resp B/P (MAP) Pulse Ox O2 Delivery O2 Flow Rate FiO2 12/11/17 08:00 83 12/11/17 08:00 98.8 83 16 165/73 (103) 97 12/11/17 08:00 97 Nasal Cannula 2.00 12/11/17 06:00 79 12/11/17 05:00 84 12/11/17 03:00 100 Nasal Cannula 2.00 12/11/17 03:00 85 12/11/17 03:00 98.4 76 18 156/72 (100) 100 12/10/17 23:00 98.8 84 20 165/66 (99) 99 12/10/17 23:00 100 Nasal Cannula 2.00 12/10/17 23:00 60 12/10/17 22:16 100 Nasal Cannula 1.00 12/10/17 21:00 89 12/10/17 20:00 85 12/10/17 19:00 98.5 88 20 165/68 (100) 100 12/10/17 19:00 100 Nasal Cannula 2.00 12/10/17 19:00 60 12/10/17 18:00 77 12/10/17 17:00 94 12/10/17 16:00 67 12/10/17 15:00 99 Nasal Cannula 2.00 12/10/17 15:00 60 12/10/17 15:00 98.3 70 20 169/69 (102) 99 12/10/17 14:00 61 12/10/17 13:00 61 12/10/17 12:00 66 12/10/17 11:00 100 Nasal Cannula 2.00 12/10/17 11:00 60 12/10/17 11:00 98.0 62 20 158/70 (99) 100 12/10/17 10:43 99 Nasal Cannula 1.00 I/O 12/10/17 12/10/17 12/10/17 12/11/17 12/11/17 12/11/17 07:00 15:00 23:00 07:00 15:00 23:00 Intake Total 700 ml 589 ml 0 ml 0 ml Output Total 600 ml 550 ml 850 ml Balance 100 ml 589 ml -550 ml -850 ml Intake Oral 0 ml 0 ml 0 ml IV Total 700 ml 589 ml Output Urine Total 600 ml 550 ml 850 ml # Bowel Movements 0 0 0 Result Diagram: 12/09/17 1115 12/09/17 1115 Imaging Last Impressions Chest X-Ray 12/10/17 0000 Signed Impressions: CONCLUSION: Diffuse pulmonary vascular prominence, unchanged. Maxillofacial CT 12/08/17 0000 Signed Impressions: CONCLUSION: 1. Mildly comminuted and mildly displaced fracturing of the nose as above. 2. Orbits and other facial bones are intact. Head CT 12/08/17 Signed Impressions: CONCLUSION: 1. No acute intracranial abnormality. 2. Mild stable cerebral atrophy. 3. Acute left nasal bone fracture. Chest CT 12/08/17 0000 Signed Impressions: CONCLUSION: 1. No evidence of acute intrathoracic trauma. 2. Scattered patchy opacities are noted within the right upper and lower lobes consistent with possible developing pneumonia. Clinical correlation is recomme nded. Minimal scattered patchiness is noted within the posterior lung bases. 3. Innumerable tiny noncalcified nodular densities are noted throughout both l ungs consistent with possible reticulonodular infiltrates or true pulmonary nod ules. These nodules all measure less than 6 mm in size. 4. Diffuse dilatation of the esophagus which contains debris suggestive of ach alasia or achalasia-like process. This could be assessed as an outpatient if cl inically indicated. 5. Cardiomegaly. 6. Degenerative changes throughout the thoracic spine. Cervical Spine CT 12/08/17 0000 Signed Impressions: CONCLUSION: 1. No fracture or subluxation of the cervical spine. 2. Multilevel degenerative changes with associated foraminal and spinal stenos is as above. 3. Possible mass of the esophagus just below the thoracic inlet. Small area of pulmonary consolidation of the visualized right lung apex. A dedicated CT of t he chest is suggested, preferably with intravenous contrast. It may also be pru dent to administer some oral contrast immediately before scanning the chest. Objective Remarks GENERAL: NAD SKIN: Warm and dry. HEAD: Normocephalic. EYES: No scleral icterus. No injection or drainage. NECK: Supple, trachea midline. No JVD or lymphadenopathy. CARDIOVASCULAR: Regular rate and rhythm with II/ CECIL . RESPIRATORY: Breath sounds decrease bilaterally. No accessory muscle use. GASTROINTESTINAL: Abdomen soft, non-tender, nondistended. MUSCULOSKELETAL: No cyanosis, No edema. BACK: Nontender without obvious deformity. No CVA tenderness. A/P Problem List: (1) PNA (pneumonia) ICD Code: J18.9 - Pneumonia, unspecified organism (2) UTI (urinary tract infection) ICD Code: N39.0 - Urinary tract infection, site not specified (3) Nasal fracture ICD Code: S02.2XXA - Fracture of nasal bones, initial encounter for closed fracture (4) Esophageal dilatation ICD Code: K22.8 - Other specified diseases of esophagus (5) Anemia ICD Code: D64.9 - Anemia, unspecified (6) DM (diabetes mellitus) ICD Code: E11.9 - Type 2 diabetes mellitus without complications Assessment and Plan 77-year-old man with 1. PNA: CT Chest w/ scattered patchy opacities in RUL/RLL consistent w/ PNA, s /p Zithro/Zosyn in ER, continue w/ IV Abx, DuoNeb prn. 2. UTI: U/a w/ UTI, continue IV Abx, follow up cultures, monitor I/O. 3. Nasal Fx: s/p fall in SNF, unwitnessed, pt unable to provide history, CT Head w/ no acute intracranial findings, acute nasal bone fracture, CT C-Spine w / no acute findings, CT Maxillofacial w/ mildly comminuted and mildly displaced fracture of the nose. Outpatient follow up. Analgesics/antiemetics as needed for pain control.D/c Morphine 2/2 encephalopathy. No BIPAP overnight d/t nasal fx 4. Anemia: Hgb 7.5, previously 7.4 on 12/04/17, on Procrit, monitor Hgb/Hct, no active bleeding noted. Patient is a Jehovah witness, therefore any blood transfusion will be refused by him 5. Achalasia with esophageal Dilatation: CT C-Spine w/ possible esophageal mass, CT Chest w/ diffuse dilatation of esophagus w/ debris suggestive of achalasia. Appreciate input from GI however patient being too frail and Too unstable for GI procedures. Patient able to pass swallow eval this a.m. December. Continue with Reglan. 6. DM: Sliding scale w/ Accu-Cheks. 7. DVT Prophylaxis: SCD/Teds 8. Respiratory distress: Now resolved. CXR noted in review, BNP of 232, HLIV, s/p Morphine Isac Wills MD Dec 11, 2017 10:42
[2017-12-11] MEDS: INSULIN ASPART SUPPLEMENTAL SCALE SQ SCH ×2 (11:32→21:00)
[2017-12-11] MEDS: TAMSULOSIN HCL 0.4 MG CAP PO SCH (22:00)
[2017-12-11] MEDS: ATORVASTATIN 40 MG TAB PO SCH (22:00)
[2017-12-11] MEDS: AZITHROMYCIN INJ 500 MG in SODIUM CHLOR 0.9% 250 ML INJ 250 ML IV SCH (22:13)
[2017-12-12] VITALS (22 sets, daily range): BP systolic 119–161; BP diastolic 57–72; PULSE 66–88; RESP 16–22; TEMP 96–98.9; O2SAT 92–99
[2017-12-12] MEDS: RESP: ALBUTEROL 2.5 MG/IPRATROPIUM 0.5 MG NEB (SCH) NEB ×3 (03:19→16:06)
[2017-12-12] MEDS: PIPERACIL-TAZO 2.25 GM PREMIX 50 ML IV SCH ×4 (03:56→21:52)
[2017-12-12] MEDS: METOCLOPRAMIDE HCL 10 MG/2 ML VIAL IV PUSH SCH ×3 (06:20→21:52)
[2017-12-12] MEDS: INSULIN ASPART SUPPLEMENTAL SCALE SQ SCH ×4 (08:00→21:56)
[2017-12-12] MEDS: GABAPENTIN 100 MG CAP PO SCH (08:19)
[2017-12-12] MEDS: DULoxetine HCl DR 20 MG CAP PO SCH (08:20)
[2017-12-12] MEDS: CLOPIDOGREL 75 MG TAB PO SCH (08:20)
[2017-12-12] MEDS: BACLOFEN 10 MG TAB PO SCH ×3 (08:20→17:30)
[2017-12-12] MEDS: FLUTICASONE 100 MCG/VILANTEROL 25 MCG INHALER INH SCH (09:00)
[2017-12-12] MEDS: SODIUM CHLORIDE 0.9% FLUSH 10 ML FLUSH IV FLUSH SCH ×2 (09:00→21:51)
--- NOTE | 2017-12-12 12:35 | HHI.PR ---
Subjective Remarks Follow-up pneumonia/UTI/achalasia with dilatation December 09, 2017-patient seen and examined, patient is currently moaning in pain. Denies any shortness of breath. Currently afebrile December 10, 2017-patient seen and examined, currently lethargic;written for BIPAP overnight however patient has facial broken bone.+ Goggly sounds December 12, 2027-patient seen and examined, appear much more alert today and patient was able to take p.o. he was able to seat at the edge of the bed December 12, 2017-patient seen and examined, patient is much better today and more alert. Tolerated more p.o. Objective Vitals Vital Signs Date Time Temp Pulse Resp B/P (MAP) Pulse Ox O2 Delivery O2 Flow Rate FiO2 12/12/17 12:15 98.4 73 16 159/70 (99) 96 12/12/17 12:15 96 Room Air 12/12/17 12:15 73 12/12/17 11:29 92 21 12/12/17 08:33 97.6 70 16 153/69 (97) 97 12/12/17 08:33 97 Room Air 12/12/17 08:33 70 12/12/17 06:00 84 12/12/17 05:00 81 12/12/17 04:00 75 12/12/17 03:58 98.5 86 22 161/72 (101) 96 12/12/17 03:00 Room Air 12/12/17 03:00 86 12/12/17 02:00 88 12/12/17 01:00 85 12/12/17 00:00 78 12/11/17 23:00 Room Air 12/11/17 23:00 75 12/11/17 23:00 98.2 87 18 140/60 (86) 94 12/11/17 22:00 84 12/11/17 21:43 97 21 12/11/17 21:00 79 12/11/17 20:00 Room Air 12/11/17 20:00 98.0 89 18 158/79 (105) 99 12/11/17 20:00 89 12/11/17 16:30 95 Room Air 12/11/17 16:30 97.9 72 18 166/64 (98) 95 I/O 6/6/18 6/6/18 12/11/17 12/12/17 12/12/17 12/12/17 07:00 15:00 23:00 07:00 15:00 23:00 Intake Total 0 ml 360 ml Output Total 850 ml 600 ml Balance -850 ml -240 ml Intake Oral 0 ml 360 ml Output Urine Total 850 ml 600 ml # Bowel Movements 0 0 Result Diagram: 12/09/17 1115 12/09/17 1115 Objective Remarks GENERAL: NAD SKIN: Warm and dry. HEAD: Normocephalic. EYES: No scleral icterus. No injection or drainage. NECK: Supple, trachea midline. No JVD or lymphadenopathy. CARDIOVASCULAR: Regular rate and rhythm with II/ CECIL . RESPIRATORY: Breath sounds decrease bilaterally. No accessory muscle use. GASTROINTESTINAL: Abdomen soft, non-tender, nondistended. MUSCULOSKELETAL: No cyanosis, No edema. BACK: Nontender without obvious deformity. No CVA tenderness. A/P Problem List: (1) PNA (pneumonia) ICD Code: J18.9 - Pneumonia, unspecified organism (2) UTI (urinary tract infection) ICD Code: N39.0 - Urinary tract infection, site not specified (3) Nasal fracture ICD Code: S02.2XXA - Fracture of nasal bones, initial encounter for closed fracture (4) Esophageal dilatation ICD Code: K22.8 - Other specified diseases of esophagus (5) Anemia ICD Code: D64.9 - Anemia, unspecified (6) DM (diabetes mellitus) ICD Code: E11.9 - Type 2 diabetes mellitus without complications Assessment and Plan 77-year-old man with 1. PNA: CT Chest w/ scattered patchy opacities in RUL/RLL consistent w/ PNA. continue w/ IV Abx including azithromycin and Zosyn, DuoNeb prn. 2. UTI-Pseudomonas: Continue with Zosyn IV every 6 hours, switch to p.o. on discharge 3. Nasal Fx: s/p fall in SNF, unwitnessed, pt unable to provide history, CT Head w/ no acute intracranial findings, acute nasal bone fracture, CT C-Spine w / no acute findings, CT Maxillofacial w/ mildly comminuted and mildly displaced fracture of the nose. Outpatient follow up. Analgesics/antiemetics as needed for pain control.D/c Morphine 2/2 encephalopathy. No BIPAP overnight d/t nasal fx 4. Anemia: Hgb 7.5, previously 7.4 on 12/04/17, on Procrit, monitor Hgb/Hct, no active bleeding noted. Patient is a Jehovah witness, therefore any blood transfusion will be refused by him 5. Achalasia with esophageal Dilatation: CT C-Spine w/ possible esophageal mass, CT Chest w/ diffuse dilatation of esophagus w/ debris suggestive of achalasia. Appreciate input from GI however patient being too frail and Too unstable for GI procedures. Patient able to pass swallow eval this a.m. December. Continue with Reglan. 6. DM: Sliding scale w/ Accu-Cheks. 7. DVT Prophylaxis: SCD/Teds 8. Respiratory distress: Now resolved. CXR noted in review, BNP of 232, HLIV, s/p Morphine Isac Wills MD Dec 12, 2017 12:35
[2017-12-12] MEDS: AZITHROMYCIN INJ 500 MG in SODIUM CHLOR 0.9% 250 ML INJ 250 ML IV SCH (21:51)
[2017-12-12] MEDS: ATORVASTATIN 40 MG TAB PO SCH (21:52)
[2017-12-12] MEDS: TAMSULOSIN HCL 0.4 MG CAP PO SCH (21:52)
[2017-12-13] VITALS (7 sets, daily range): BP systolic 129–150; BP diastolic 51–84; PULSE 62–74; RESP 18–24; TEMP 95.8–98.1; O2SAT 96–98
[2017-12-13] MEDS: RESP: ALBUTEROL 2.5 MG/IPRATROPIUM 0.5 MG NEB (SCH) NEB ×3 (01:24→16:00)
[2017-12-13] MEDS: PIPERACIL-TAZO 2.25 GM PREMIX 50 ML IV SCH ×4 (04:55→23:26)
[2017-12-13] MEDS: METOCLOPRAMIDE HCL 10 MG/2 ML VIAL IV PUSH SCH ×3 (04:57→21:31)
[2017-12-13] MEDS: CLOPIDOGREL 75 MG TAB PO SCH (07:40)
[2017-12-13] MEDS: BACLOFEN 10 MG TAB PO SCH ×2 (07:40→11:47)
[2017-12-13] MEDS: GABAPENTIN 100 MG CAP PO SCH (07:40)
[2017-12-13] MEDS: SODIUM CHLORIDE 0.9% FLUSH 10 ML FLUSH IV FLUSH SCH ×2 (07:41→21:50)
[2017-12-13] MEDS: INSULIN ASPART SUPPLEMENTAL SCALE SQ SCH ×4 (07:41→21:30)
[2017-12-13] MEDS: DULoxetine HCl DR 20 MG CAP PO SCH (07:53)
[2017-12-13 08:03] LABS: AUTOMATED NEUTROPHIL # 5.8 TH/MM3 (1.8-7.7); BASOPHIL # 0.1 TH/MM3 (0-0.2); BASOPHIL % 0.7 % (0.0-2.0); HEMATOCRIT 23.1 % (39.0-51.0); HEMOGLOBIN 7.6 GM/DL (13.0-17.0); MEAN CELL VOLUME 85.5 FL (80.0-100.0); MEAN CORPUSCULAR HEMOGLOBIN 28.2 PG (27.0-34.0); MONO % 5.4 % (0.0-8.0); MONOCYTE # 0.5 TH/MM3 (0-0.9); NEUT % 69.9 % (16.0-70.0); PLATELET COUNT 231 TH/MM3 (150-450); RED CELL DISTRIBUTION WIDTH 16.2 % (11.6-17.2); WHITE BLOOD COUNT 8.4 TH/MM3 (4.0-11.0)
[2017-12-13 08:14] LABS: ALBUMIN 2.3 GM/DL (3.4-5.0); ALT (GPT) 20 U/L (12-78); AST (GOT) 19 U/L (15-37); BICARBONATE 24.6 MEQ/L (21.0-32.0); BLOOD UREA NITROGEN 24 MG/DL (7-18); CALCIUM 8.8 MG/DL (8.5-10.1); CHLORIDE 108 MEQ/L (98-107); CREATININE 3.14 MG/DL (0.60-1.30); GLOMERULAR FILTRATION RATE 19 ML/MIN (>89); GLUCOSE,RANDOM 89 MG/DL (74-106); SODIUM (NA) 142 MEQ/L (136-145)
[2017-12-13 08:17] LABS: ALKALINE PHOSPHATASE 152 U/L (45-117); TOTAL BILIRUBIN ADULT 0.2 MG/DL (0.2-1.0); TOTAL PROTEIN 7.4 GM/DL (6.4-8.2)
[2017-12-13] MEDS: FLUTICASONE 100 MCG/VILANTEROL 25 MCG INHALER INH SCH (09:23)
--- NOTE | 2017-12-13 14:56 | HHI.PR ---
Subjective Remarks Anemia still present. Monitor hemoglobin for upward trend prior to consideration for discharge. Patient has received Procrit. He is Taoism and refuses blood transfusions. Objective Vital Signs Date Time Temp Pulse Resp B/P (MAP) Pulse Ox O2 Delivery O2 Flow Rate FiO2 12/13/17 12:00 96.4 73 18 133/72 (92) 98 12/13/17 09:39 98 21 12/13/17 08:00 95.8 62 19 150/51 (84) 97 12/13/17 04:00 96.3 74 20 142/63 (89) 98 12/13/17 00:00 96.9 74 20 136/63 (87) 96 12/12/17 21:57 Room Air 12/12/17 20:00 97.2 78 20 119/57 (77) 96 12/12/17 17:45 96.0 70 19 148/67 (94) 99 12/12/17 16:31 66 12/12/17 15:23 98.9 66 16 158/65 (96) 95 12/12/17 15:23 95 Room Air 12/12/17 15:23 66 12/12/17 15:00 68 I/O 12/12/17 12/12/17 12/12/17 12/13/17 12/13/17 12/13/17 07:00 15:00 23:00 07:00 15:00 23:00 Intake Total 360 ml 990 ml 540 ml Output Total 600 ml 600 ml 850 ml Balance -240 ml 390 ml -310 ml Intake Oral 360 ml 840 ml 240 ml IV Total 150 ml 300 ml Output Urine Total 600 ml 600 ml 850 ml # Bowel Movements 0 1 Result Diagram: 12/13/17 0629 12/13/17 06 Objective Remarks GENERAL: NAD, A&Ox3 HEAD: Normocephalic. NECK: Supple, trachea midline. No lymphadenopathy. EYES: No scleral icterus. No injection or drainage. CARDIOVASCULAR: Regular rate and rhythm without murmurs, gallops, or rubs. RESPIRATORY: Breath sounds equal bilaterally. No accessory muscle use. GASTROINTESTINAL: Abdomen soft, non-tender, nondistended. MUSCULOSKELETAL: No cyanosis, or edema. SKIN: Warm and dry. NEURO: No focal neurological deficitis. A/P Problem List: (1) Anemia ICD Code: D64.9 - Anemia, unspecified Status: Acute (2) Pneumonia ICD Code: J18.9 - Pneumonia, unspecified organism Status: Acute (3) Syncope ICD Code: R55 - Syncope and collapse Status: Acute Assessment and Plan 77-year-old man admitted with syncope, pneumonia, and anemia Pneumonia Continue azithromycin and Zosyn Continue breathing treatments as needed Urinary tract infection Continue Zosyn Nasal fracture Follow with maxillofacial surgeon as an outpatient Continue as needed pain treatments Anemia Patient is Taoism and refuses transfusions Procrit has been started Monitor hemoglobin History of achalasia with esophageal dilation No need for dilation this point, patient not stable enough Diabetes mellitus type 2 Follow blood sugars Insulin sliding scale Diabetic diet DVT prophylaxis SCDs Discharge planning Stability in hemoglobin needed prior to consideration for discharge Dc Yao MD Dec 13, 2017 14:56
[2017-12-13] MEDS ORDERED: BACLOFEN 10 MG TAB PO PRN (15:00)
[2017-12-13] MEDS: ATORVASTATIN 40 MG TAB PO SCH (21:31)
[2017-12-13] MEDS: AZITHROMYCIN INJ 500 MG in SODIUM CHLOR 0.9% 250 ML INJ 250 ML IV SCH (21:31)
[2017-12-13] MEDS: TAMSULOSIN HCL 0.4 MG CAP PO SCH (21:33)
[2017-12-14] VITALS: BP 121/59; PULSE 69; RESP 18; TEMP 97.8; O2SAT 96
[2017-12-14 04:00] VITALS: BP 151/73; PULSE 69; RESP 20; TEMP 97.6; O2SAT 96
[2017-12-14] MEDS: PIPERACIL-TAZO 2.25 GM PREMIX 50 ML IV SCH ×4 (04:44→21:56)
[2017-12-14] MEDS: METOCLOPRAMIDE HCL 10 MG/2 ML VIAL IV PUSH SCH ×3 (06:12→21:56)
[2017-12-14 06:26] LABS: AUTOMATED NEUTROPHIL # 5.9 TH/MM3 (1.8-7.7); BASOPHIL # 0.1 TH/MM3 (0-0.2); EOSINOPHIL % 11.3 % (0.0-4.0); HEMATOCRIT 23.8 % (39.0-51.0); HEMOGLOBIN 7.9 GM/DL (13.0-17.0); LYMPH % 11.8 % (9.0-44.0); MEAN CELL VOLUME 85.2 FL (80.0-100.0); MEAN CORPUSCULAR HEMOGLOBIN 28.4 PG (27.0-34.0); MEAN CORPUSCULAR HGB CONC 33.3 % (32.0-36.0); MEAN PLATELET VOLUME 6.3 FL (7.0-11.0); MONO % 6.3 % (0.0-8.0); MONOCYTE # 0.5 TH/MM3 (0-0.9); NEUT % 69.6 % (16.0-70.0); PLATELET COUNT 216 TH/MM3 (150-450); RED CELL DISTRIBUTION WIDTH 16.6 % (11.6-17.2); WHITE BLOOD COUNT 8.4 TH/MM3 (4.0-11.0)
[2017-12-14 06:46] LABS: ALBUMIN 2.2 GM/DL (3.4-5.0); ALT (GPT) 18 U/L (12-78); AST (GOT) 17 U/L (15-37); BICARBONATE 23.5 MEQ/L (21.0-32.0); BLOOD UREA NITROGEN 23 MG/DL (7-18); CALCIUM 8.7 MG/DL (8.5-10.1); CHLORIDE 107 MEQ/L (98-107); CREATININE 2.89 MG/DL (0.60-1.30); GLOMERULAR FILTRATION RATE 21 ML/MIN (>89); GLUCOSE,RANDOM 81 MG/DL (74-106); SODIUM (NA) 141 MEQ/L (136-145)
[2017-12-14 06:48] LABS: ALKALINE PHOSPHATASE 126 U/L (45-117); TOTAL BILIRUBIN ADULT 0.2 MG/DL (0.2-1.0); TOTAL PROTEIN 7.4 GM/DL (6.4-8.2)
--- NOTE | 2017-12-14 07:16 | HHI.PR ---
Subjective Remarks Patient seen and examined this morning, their vitals are stable and the patient is afebrile. States he feels better, feels 80% at baseline. Denies CP or difficulty breathing. Denies facial pain. Objective Vital Signs Date Time Temp Pulse Resp B/P (MAP) Pulse Ox O2 Delivery O2 Flow Rate FiO2 12/14/17 04:00 97.6 69 20 151/73 (99) 96 12/14/17 00:00 97.8 69 18 121/59 (79) 96 12/13/17 21:35 Room Air 12/13/17 20:00 98.1 69 24 129/84 (99) 98 12/13/17 16:00 95.9 68 18 149/65 (93) 98 12/13/17 12:00 96.4 73 18 133/72 (92) 98 12/13/17 09:39 98 21 12/13/17 08:00 95.8 62 19 150/51 (84) 97 I/O 12/13/17 12/13/17 12/13/17 12/14/17 12/14/17 12/14/17 07:00 15:00 23:00 07:00 15:00 23:00 Intake Total 540 ml 480 ml Output Total 850 ml 750 ml 850 ml Balance -310 ml -750 ml -370 ml Intake Oral 240 ml 480 ml IV Total 300 ml Output Urine Total 850 ml 750 ml 850 ml # Bowel Movements 3 Result Diagram: 12/14/17 0508 12/14/17 0508 Imaging Last Impressions Chest X-Ray 12/10/17 0000 Signed Impressions: CONCLUSION: Diffuse pulmonary vascular prominence, unchanged. Maxillofacial CT 12/08/17 0000 Signed Impressions: CONCLUSION: 1. Mildly comminuted and mildly displaced fracturing of the nose as above. 2. Orbits and other facial bones are intact. Head CT 12/08/17 0000 Signed Impressions: CONCLUSION: 1. No acute intracranial abnormality. 2. Mild stable cerebral atrophy. 3. Acute left nasal bone fracture. Chest CT 12/08/17 0000 Signed Impressions: CONCLUSION: 1. No evidence of acute intrathoracic trauma. 2. Scattered patchy opacities are noted within the right upper and lower lobes consistent with possible developing pneumonia. Clinical correlation is recomme nded. Minimal scattered patchiness is noted within the posterior lung bases. 3. Innumerable tiny noncalcified nodular densities are noted throughout both l ungs consistent with possible reticulonodular infiltrates or true pulmonary nod ules. These nodules all measure less than 6 mm in size. 4. Diffuse dilatation of the esophagus which contains debris suggestive of ach alasia or achalasia-like process. This could be assessed as an outpatient if cl inically indicated. 5. Cardiomegaly. 6. Degenerative changes throughout the thoracic spine. Cervical Spine CT 12/08/17 0000 Signed Impressions: CONCLUSION: 1. No fracture or subluxation of the cervical spine. 2. Multilevel degenerative changes with associated foraminal and spinal stenos is as above. 3. Possible mass of the esophagus just below the thoracic inlet. Small area of pulmonary consolidation of the visualized right lung apex. A dedicated CT of t he chest is suggested, preferably with intravenous contrast. It may also be pru dent to administer some oral contrast immediately before scanning the chest. Objective Remarks GENERAL: Well-appearing, no acute distress SKIN: Warm and dry. Abrasion to nose. HEAD: Normocephalic. EYES: No scleral icterus. No injection or drainage. NECK: Supple, trachea midline. No JVD or lymphadenopathy. CARDIOVASCULAR: Regular rate and rhythm without murmurs, gallops, or rubs. RESPIRATORY: Breath sounds equal bilaterally. No accessory muscle use. GASTROINTESTINAL: Abdomen soft, non-tender, nondistended. MUSCULOSKELETAL: No cyanosis, or edema. A/P Problem List: (1) Anemia ICD Code: D64.9 - Anemia, unspecified (2) Nasal fracture ICD Code: S02.2XXA - Fracture of nasal bones, initial encounter for closed fracture (3) UTI (urinary tract infection) ICD Code: N39.0 - Urinary tract infection, site not specified (4) Esophageal dilatation ICD Code: K22.8 - Other specified diseases of esophagus (5) PNA (pneumonia) ICD Code: J18.9 - Pneumonia, unspecified organism (6) DM (diabetes mellitus) ICD Code: E11.9 - Type 2 diabetes mellitus without complications Assessment and Plan 77-year-old male with a medically significant for A. fib, hypertension, dementia , COPD, CHF, and diabetes admitted after syncopal event. Patient was sent from the ER from his rehab center after being found down on the floor with bleeding from his nose. Hemoglobin on admission was 7.5. Found to be anemic and to have a pneumonia Syncope History regarding the fall is unclear. Patient is with dementia and is unable to provide history. See imaging above Mechanical fall vs. syncope Will order carotid US ECHO 11/2017: EF 40-45%, pacemaker wire noted, trace mitral regurg, pulmonary HTN Anemia Patient Faith and is refusing blood products. Has been receiving Procrit. Hemoglobin improving 7.5 on admission, now 7.9 Nasal fracture Can follow-up with max of facial area surgeon as an outpatient History of achalasia This is again noted in the CT No need for dilation at this point, can be followed up as an outpatient Diabetes Supplemental sliding scale Pneumonia Currently on Zosyn and azithromycin UTI Urine culture growing Pseudomonas, sensitive to Zosyn CKD Cr during last adission 2.8-3.17 3.72 at admission, now 2.89 DVT prophylaxis Bilateral SCDs Discharge Planning We will be discharged back to rehab when medically stable, likely tomorrow. Ananya Fuentes MD Dec 14, 2017 07:16
[2017-12-14 08:00] VITALS: BP 136/64; PULSE 66; RESP 20; TEMP 98; O2SAT 94
[2017-12-14] MEDS: INSULIN ASPART SUPPLEMENTAL SCALE SQ SCH ×4 (08:00→19:55)
[2017-12-14] MEDS: GABAPENTIN 100 MG CAP PO SCH (09:19)
[2017-12-14] MEDS: DULoxetine HCl DR 20 MG CAP PO SCH (09:20)
[2017-12-14] MEDS: CLOPIDOGREL 75 MG TAB PO SCH (09:21)
[2017-12-14] MEDS: FLUTICASONE 100 MCG/VILANTEROL 25 MCG INHALER INH SCH (09:23)
[2017-12-14] MEDS: SODIUM CHLORIDE 0.9% FLUSH 10 ML FLUSH IV FLUSH SCH ×2 (09:31→19:56)
--- NOTE | 2017-12-14 10:59 | RADRPT ---
EXAM DATE: 12/14/2017 10:39 AM EDT AGE/SEX: 77 years / Male INDICATIONS: Syncope. CLINICAL DATA: This is the patient's subsequent encounter. Patient reports that signs and symptoms h ave been present for > 1 year and indicates a pain score of 0/10. MEDICAL/SURGICAL HISTORY: Congestive heart failure. Chronic obstructive pulmonary disease. An emia. GERD. A-fib. Diabetes. Gallstones. Chronic Kidney disease. Cholecystectomy. Right foot. Left knee. COMPARISON: [facility] [place], [place] CAROTID ARTERIES, 11/09/2016. . VELOCITY PARAMETERS: ICA/CCA Ratio: Right 1.5 , Left 1.1 ICA: Right 104 cm/sec, Left 96 cm/sec CCA: Right 71 cm/sec, Left 88 cm/sec ECA: Right 57 cm/sec, Left 66 cm/sec Vertebral: Right 87 cm/sec antegrade, Left 64 cm/sec antegrade FINDINGS: Right Carotid: No significant stenosis is visualized. The waveforms are within normal limits. There is mild atherosclerotic plaquing. Left Carotid: No significant stenosis is visualized. The waveforms are within normal limits. There is mild atherosclerotic plaquing. Other: None. CONCLUSION: 1. Right Internal Carotid Artery: No evidence for hemodynamically significant stenosis. 2. Left Internal Carotid Artery: No evidence for hemodynamically significant stenosis. Electronically signed by: Torres Childs MD 12/14/2017 10:57 AM EDT
[2017-12-14 12:00] VITALS: BP 154/65; PULSE 62; RESP 18; TEMP 98; O2SAT 94
[2017-12-14 16:00] VITALS: BP 127/57; PULSE 68; RESP 18; TEMP 98; O2SAT 92
[2017-12-14] MEDS: AZITHROMYCIN INJ 500 MG in SODIUM CHLOR 0.9% 250 ML INJ 250 ML IV SCH (19:55)
[2017-12-14] MEDS: TAMSULOSIN HCL 0.4 MG CAP PO SCH (19:55)
[2017-12-14] MEDS: ATORVASTATIN 40 MG TAB PO SCH (19:55)
[2017-12-14 20:00] VITALS: BP 121/58; PULSE 85; RESP 20; TEMP 97.6; O2SAT 95
[2017-12-15] VITALS: BP 137/57; PULSE 69; RESP 20; TEMP 96.5; O2SAT 96
[2017-12-15 04:00] VITALS: BP 116/73; PULSE 73; RESP 20; TEMP 97.3; O2SAT 96
[2017-12-15] MEDS: PIPERACIL-TAZO 2.25 GM PREMIX 50 ML IV SCH ×4 (05:16→20:09)
[2017-12-15] MEDS: METOCLOPRAMIDE HCL 10 MG/2 ML VIAL IV PUSH SCH ×3 (05:16→21:41)
[2017-12-15] MEDS: INSULIN ASPART SUPPLEMENTAL SCALE SQ SCH ×4 (08:00→20:09)
[2017-12-15 08:35] LABS: AUTOMATED NEUTROPHIL # 5.9 TH/MM3 (1.8-7.7); BASOPHIL # 0.1 TH/MM3 (0-0.2); EOSINOPHIL # 0.9 TH/MM3 (0-0.4); EOSINOPHIL % 10.2 % (0.0-4.0); HEMATOCRIT 23.1 % (39.0-51.0); HEMOGLOBIN 7.6 GM/DL (13.0-17.0); LYMPH % 13.4 % (9.0-44.0); LYMPHOCYTE # 1.1 TH/MM3 (1.0-4.8); MEAN CELL VOLUME 85.3 FL (80.0-100.0); MEAN CORPUSCULAR HGB CONC 32.8 % (32.0-36.0); MEAN PLATELET VOLUME 6.3 FL (7.0-11.0); MONO % 5.3 % (0.0-8.0); MONOCYTE # 0.5 TH/MM3 (0-0.9); NEUT % 70.1 % (16.0-70.0); PLATELET COUNT 213 TH/MM3 (150-450); RED BLOOD COUNT 2.71 MIL/MM3 (4.50-5.90); RED CELL DISTRIBUTION WIDTH 16.9 % (11.6-17.2); WHITE BLOOD COUNT 8.5 TH/MM3 (4.0-11.0)
[2017-12-15] MEDS: DULoxetine HCl DR 20 MG CAP PO SCH (09:06)
[2017-12-15] MEDS: FLUTICASONE 100 MCG/VILANTEROL 25 MCG INHALER INH SCH (09:06)
[2017-12-15] MEDS: CLOPIDOGREL 75 MG TAB PO SCH (09:06)
[2017-12-15] MEDS: AZITHROMYCIN 250 MG TAB PO SCH (09:06)
[2017-12-15] MEDS: GABAPENTIN 100 MG CAP PO SCH (09:06)
[2017-12-15] MEDS: SODIUM CHLORIDE 0.9% FLUSH 10 ML FLUSH IV FLUSH SCH ×2 (09:07→20:09)
--- NOTE | 2017-12-15 09:58 | HHI.PR ---
Subjective Remarks Patient seen and examined this morning, their vitals are stable and the patient is afebrile. States he feels better, feels 80% at baseline. Denies CP or difficulty breathing. Doesn't know how often he takes epogen as an outpatient. Objective Vital Signs Date Time Temp Pulse Resp B/P (MAP) Pulse Ox O2 Delivery O2 Flow Rate FiO2 12/15/17 09:00 Room Air 12/15/17 04:00 97.3 73 20 116/73 (87) 96 12/15/17 00:00 96.5 69 20 137/57 (83) 96 12/14/17 20:00 97.6 85 20 121/58 (79) 95 12/14/17 16:00 98.0 68 18 127/57 (80) 92 12/14/17 15:00 Room Air 12/14/17 12:00 98.0 62 18 154/65 (94) 94 12/14/17 11:00 Room Air I/O 12/14/17 12/14/17 12/14/17 12/15/17 12/15/17 12/15/17 07:00 15:00 23:00 07:00 15:00 23:00 Intake Total 480 ml 902 ml 530 ml Output Total 850 ml 750 ml 900 ml Balance -370 ml 152 ml -370 ml Intake Oral 480 ml 600 ml 480 ml IV Total 302 ml 50 ml Output Urine Total 850 ml 750 ml 900 ml # Bowel Movements 3 3 1 4 Result Diagram: 12/15/17 0741 12/14/17 0508 Imaging Last Impressions Carotid Artery Ultrasound 12/14/17 0000 Signed Impressions: CONCLUSION: 1. Right Internal Carotid Artery: No evidence for hemodynamically significant stenosis. 2. Left Internal Carotid Artery: No evidence for hemodynamically significant s tenosis. Chest X-Ray 12/10/17 0000 Signed Impressions: CONCLUSION: Diffuse pulmonary vascular prominence, unchanged. Maxillofacial CT 12/08/17 0000 Signed Impressions: CONCLUSION: 1. Mildly comminuted and mildly displaced fracturing of the nose as above. 2. Orbits and other facial bones are intact. Head CT 12/08/17 0000 Signed Impressions: CONCLUSION: 1. No acute intracranial abnormality. 2. Mild stable cerebral atrophy. 3. Acute left nasal bone fracture. Chest CT 12/08/17 0000 Signed Impressions: CONCLUSION: 1. No evidence of acute intrathoracic trauma. 2. Scattered patchy opacities are noted within the right upper and lower lobes consistent with possible developing pneumonia. Clinical correlation is recomme nded. Minimal scattered patchiness is noted within the posterior lung bases. 3. Innumerable tiny noncalcified nodular densities are noted throughout both l ungs consistent with possible reticulonodular infiltrates or true pulmonary nod ules. These nodules all measure less than 6 mm in size. 4. Diffuse dilatation of the esophagus which contains debris suggestive of ach alasia or achalasia-like process. This could be assessed as an outpatient if cl inically indicated. 5. Cardiomegaly. 6. Degenerative changes throughout the thoracic spine. Cervical Spine CT 12/08/17 0000 Signed Impressions: CONCLUSION: 1. No fracture or subluxation of the cervical spine. 2. Multilevel degenerative changes with associated foraminal and spinal stenos is as above. 3. Possible mass of the esophagus just below the thoracic inlet. Small area of pulmonary consolidation of the visualized right lung apex. A dedicated CT of t he chest is suggested, preferably with intravenous contrast. It may also be pru dent to administer some oral contrast immediately before scanning the chest. Objective Remarks GENERAL: Well-appearing, no acute distress SKIN: Warm and dry. Abrasion to nose. HEAD: Normocephalic. EYES: No scleral icterus. No injection or drainage. NECK: Supple, trachea midline. No JVD or lymphadenopathy. CARDIOVASCULAR: Regular rate and rhythm without murmurs, gallops, or rubs. RESPIRATORY: Breath sounds equal bilaterally. No accessory muscle use. GASTROINTESTINAL: Abdomen soft, non-tender, nondistended. MUSCULOSKELETAL: No cyanosis, or edema. A/P Problem List: (1) Anemia ICD Code: D64.9 - Anemia, unspecified (2) Nasal fracture ICD Code: S02.2XXA - Fracture of nasal bones, initial encounter for closed fracture (3) UTI (urinary tract infection) ICD Code: N39.0 - Urinary tract infection, site not specified (4) Esophageal dilatation ICD Code: K22.8 - Other specified diseases of esophagus (5) PNA (pneumonia) ICD Code: J18.9 - Pneumonia, unspecified organism (6) DM (diabetes mellitus) ICD Code: E11.9 - Type 2 diabetes mellitus without complications Assessment and Plan 77-year-old male with a medically significant for A. fib, hypertension, dementia , COPD, CHF, and diabetes admitted after syncopal event. Patient was sent from the ER from his rehab center after being found down on the floor with bleeding from his nose. Hemoglobin on admission was 7.5. Found to be anemic and to have a pneumonia Syncope History regarding the fall is unclear. Patient is with dementia and is unable to provide history. See imaging above Mechanical fall vs. syncope carotid US negative for significant stenosis ECHO 11/2017: EF 40-45%, pacemaker wire noted, trace mitral regurg, pulmonary HTN Anemia Patient [employer] and is refusing blood products. Has been receiving Procrit once a week as an outpatient. Hb has dropped from yesterday, will give epogen 2000 units. Epogen may be given up to 3x a week at 50-100 units/kg, so may consider higher dose as an outpatient. Nasal fracture Can follow-up with max of facial area surgeon as an outpatient History of achalasia This is again noted in the CT No need for dilation at this point, can be followed up as an outpatient Diabetes Supplemental sliding scale Pneumonia Currently on Zosyn and azithromycin UTI Urine culture growing Pseudomonas, sensitive to Zosyn CKD Cr during last adission 2.8-3.17 3.72 at admission, now 2.89 DVT prophylaxis Bilateral SCDs Discharge Planning Epogen 2000 units given 12/15, repeat Hb tomorro If Hb stable (same or improved) d/c back to rehab . Ananya Fuentes MD Dec 15, 2017 09:58
[2017-12-15] MEDS ORDERED: EPOETIN ALFA 2,000 UNITS/ML VIAL SQ ONE (10:15)
[2017-12-15] MEDS: TAMSULOSIN HCL 0.4 MG CAP PO SCH (20:09)
[2017-12-15] MEDS: ATORVASTATIN 40 MG TAB PO SCH (20:09)
[2017-12-15 20:35] VITALS: BP 137/66; PULSE 68; RESP 17; TEMP 97.2; O2SAT 96
[2017-12-15 23:55] VITALS: BP 146/57; PULSE 75; RESP 17; TEMP 97.5; O2SAT 95
[2017-12-16] MEDS: PIPERACIL-TAZO 2.25 GM PREMIX 50 ML IV SCH ×2 (03:38→08:50)
[2017-12-16 04:30] VITALS: BP 155/71; PULSE 76; RESP 17; TEMP 97.6; O2SAT 96
[2017-12-16] MEDS: METOCLOPRAMIDE HCL 10 MG/2 ML VIAL IV PUSH SCH (06:09)
[2017-12-16 08:00] VITALS: BP 154/58; PULSE 73; RESP 18; TEMP 97; O2SAT 94
[2017-12-16] MEDS: INSULIN ASPART SUPPLEMENTAL SCALE SQ SCH ×2 (08:00→12:00)
[2017-12-16] MEDS: CLOPIDOGREL 75 MG TAB PO SCH (08:50)
[2017-12-16] MEDS: AZITHROMYCIN 250 MG TAB PO SCH (08:50)
[2017-12-16] MEDS: DULoxetine HCl DR 20 MG CAP PO SCH (08:50)
[2017-12-16] MEDS: GABAPENTIN 100 MG CAP PO SCH (08:50)
[2017-12-16] MEDS: FLUTICASONE 100 MCG/VILANTEROL 25 MCG INHALER INH SCH (09:00)
[2017-12-16] MEDS: SODIUM CHLORIDE 0.9% FLUSH 10 ML FLUSH IV FLUSH SCH (09:00)
[2017-12-16 09:01] LABS: HEMATOCRIT 23.3 % (39.0-51.0); HEMOGLOBIN 7.7 GM/DL (13.0-17.0); MEAN CELL VOLUME 84.1 FL (80.0-100.0); MEAN CORPUSCULAR HGB CONC 33.3 % (32.0-36.0); MEAN PLATELET VOLUME 6.9 FL (7.0-11.0); PLATELET COUNT 180 TH/MM3 (150-450); RED BLOOD COUNT 2.77 MIL/MM3 (4.50-5.90); RED CELL DISTRIBUTION WIDTH 17.5 % (11.6-17.2); WHITE BLOOD COUNT 8.6 TH/MM3 (4.0-11.0)
--- NOTE | 2017-12-16 10:42 | HHI.DS ---
Discharge Summary Admission Date Dec 08, 2017 at 22:44 Discharge Date: Dec 16, 2017 Admitting Diagnosis syncope, pneumonia, cystitis, anemia, chronic kidney disease, (1) PNA (pneumonia) ICD Code: J18.9 - Pneumonia, unspecified organism Diagnosis: Principal Status: Acute (2) Syncope and collapse ICD Code: R55 - Syncope and collapse Status: Acute (3) Pseudomonas urinary tract infection ICD Code: N39.0 - Urinary tract infection, site not specified; B96.5 - Pseudomonas (aeruginosa) (mallei) (pseudomallei) as the cause of diseases classified elsewhere Diagnosis: Principal Status: Acute (4) Nasal fracture ICD Code: S02.2XXA - Fracture of nasal bones, initial encounter for closed fracture Diagnosis: Secondary Status: Acute (5) Anemia ICD Code: D64.9 - Anemia, unspecified Diagnosis: Secondary Status: Chronic (6) DM (diabetes mellitus) ICD Code: E11.9 - Type 2 diabetes mellitus without complications Diagnosis: Secondary Status: Chronic Procedures none Brief History - From Admission This is a 77-year-old male with a PMH of A. fib, HTN, Dementia, COPD, CHF (Echo 12/02/2017 w/ EF 40-45%) and DM who was [facility] after being found down on the floor w/ bleeding from his nose. Pt unable to provide much history due to Dementia, however does complain of a headache. On arrival, BP 126/58, HR 70, O2 sat 97% RA, Afebrile. Hemoglobin 7.5, previously 7.4 on . Creatinine 3.79, previously 3.30 on 12/05/2017. Troponin negative. Lactic Acid normal. INR 1.0. UA positive for UTI. CT Head with no acute findings, acute left nasal bone fracture. CT C-spine possible mass of the esophagus and small area of pulmonary consolidation. CT Maxillofacial with mildly comminuted mildly displaced fracture of the nose. CT Chest with no trauma, scattered patchy opacities right upper and lower lobes, diffuse dilatation of the esophagus which contains debris suggestive of achalasia. S/p Zithro/Zosyn in ER. CBC/BMP: 12/16/17 0835 12/14/17 0508 Significant Findings Laboratory Tests Test 12/14/17 05:08 12/15/17 07:41 12/16/17 08:35 Red Blood Count 2.80 MIL/MM3 (4.50-5.90) 2.71 MIL/MM3 (4.50-5.90) 2.77 MIL/MM3 (4.50-5.90) Hemoglobin 7.9 GM/DL (13.0-17.0) 7.6 GM/DL (13.0-17.0) 7.7 GM/DL (13.0-17.0) Hematocrit 23.8 % (39.0-51.0) 23.1 % (39.0-51.0) 23.3 % (39.0-51.0) Mean Platelet Volume 6.3 FL (7.0-11.0) 6.3 FL (7.0-11.0) 6.9 FL (7.0-11.0) Eosinophils (%) (Auto) 11.3 % (0.0-4.0) 10.2 % (0.0-4.0) Eosinophils # (Auto) 1.0 TH/MM3 (0-0.4) 0.9 TH/MM3 (0-0.4) Blood Urea Nitrogen 23 MG/DL (7-18) Creatinine 2.89 MG/DL (0.60-1.30) Albumin 2.2 GM/DL (3.4-5.0) Alkaline Phosphatase 126 U/L (45-117) Estimat Glomerular Filtration Rate 21 ML/MIN (>89) Neutrophils (%) (Auto) 70.1 % (16.0-70.0) Red Cell Distribution Width 17.5 % (11.6-17.2) Imaging Last Impressions Carotid Artery Ultrasound 12/14/17 0000 Signed Impressions: CONCLUSION: 1. Right Internal Carotid Artery: No evidence for hemodynamically significant stenosis. 2. Left Internal Carotid Artery: No evidence for hemodynamically significant s tenosis. Chest X-Ray 12/10/17 0000 Signed Impressions: CONCLUSION: Diffuse pulmonary vascular prominence, unchanged. Maxillofacial CT 12/08/17 0000 Signed Impressions: CONCLUSION: 1. Mildly comminuted and mildly displaced fracturing of the nose as above. 2. Orbits and other facial bones are intact. Head CT 12/08/17 Signed Impressions: CONCLUSION: 1. No acute intracranial abnormality. 2. Mild stable cerebral atrophy. 3. Acute left nasal bone fracture. Chest CT 12/08/17 Signed Impressions: CONCLUSION: 1. No evidence of acute intrathoracic trauma. 2. Scattered patchy opacities are noted within the right upper and lower lobes consistent with possible developing pneumonia. Clinical correlation is recomme nded. Minimal scattered patchiness is noted within the posterior lung bases. 3. Innumerable tiny noncalcified nodular densities are noted throughout both l ungs consistent with possible reticulonodular infiltrates or true pulmonary nod ules. These nodules all measure less than 6 mm in size. 4. Diffuse dilatation of the esophagus which contains debris suggestive of ach alasia or achalasia-like process. This could be assessed as an outpatient if cl inically indicated. 5. Cardiomegaly. 6. Degenerative changes throughout the thoracic spine. Cervical Spine CT 12/08/17 Signed Impressions: CONCLUSION: 1. No fracture or subluxation of the cervical spine. 2. Multilevel degenerative changes with associated foraminal and spinal stenos is as above. 3. Possible mass of the esophagus just below the thoracic inlet. Small area of pulmonary consolidation of the visualized right lung apex. A dedicated CT of t he chest is suggested, preferably with intravenous contrast. It may also be pru dent to administer some oral contrast immediately before scanning the chest. PE at Discharge GENERAL: NAD SKIN: Warm and dry. HEAD: Normocephalic. EYES: No scleral icterus. No injection or drainage. NECK: Supple, trachea midline. No JVD or lymphadenopathy. CARDIOVASCULAR: Regular rate and rhythm with II/ CECIL . RESPIRATORY: Breath sounds decrease bilaterally. No accessory muscle use. GASTROINTESTINAL: Abdomen soft, non-tender, nondistended. MUSCULOSKELETAL: No cyanosis, No edema. BACK: Nontender without obvious deformity. No CVA tenderness. Hospital Course These are the medical issues addressed during this hospitalization: 77-year-old male with a medically significant for A. fib, hypertension, dementia , COPD, CHF, and diabetes mellitus type II admitted after syncopal event. Patient was sent from the ER from his rehab center after being found down on the floor with bleeding from his nose. Hemoglobin on admission was 7.5. Found to be anemic and to have a pneumonia Syncope History regarding the fall is unclear. Patient is with dementia and is unable to provide history. See imaging above Mechanical fall vs. syncope carotid US negative for significant stenosis ECHO 11/2017: EF 40-45%, pacemaker wire noted, trace mitral regurg, pulmonary HTN Chronic anemia from chronic kidney disease stage IV Patient Uatsdin and is refusing blood products. Has been receiving Procrit once a week as an outpatient. Hb has stabilized and given Epogen 2000 units. Nasal fracture Can follow-up with max of facial area surgeon as an outpatient History of achalasia This is again noted in the CT No need for dilation at this point, can be followed up as an outpatient Diabetes mellitus type II Supplemental sliding scale Community-acquired pneumonia Currently on Zosyn and azithromycin and completed course of antibiotic during the hospitalization Pseudomonas UTI Urine culture growing Pseudomonas, sensitive to Zosyn, completed course of antibiotics CKD stage IV Avoid nephrotoxins and creatinine has been stable during hospitalization improved. DVT prophylaxis Bilateral SCDs Pt Condition on Discharge: Good Discharge Disposition: Discharge to SNF Discharge Time: <= 30 minutes Discharge Instructions DIET: Follow Instructions for: Heart Healthy Diet Activities you can perform: Regular-No Restrictions Follow up Referrals: PCP Follow-up - 1 Week Continued Medications: Allopurinol (Allopurinol) 100 Mg Tab 100 MG PO DAILY for Gout, #30 TAB 0 Refills Amlodipine (Norvasc) 5 Mg Tab 5 MG OG-TUBE DAILY for hypertension for 30 Days, #30 TAB 0 Refills Atorvastatin (Atorvastatin) 40 Mg Tab 40 MG PO HS for Cholesterol Management, #30 TAB 0 Refills Baclofen (Baclofen) 10 Mg Tab 10 MG PO TID for Muscle Spasm, TAB 0 Refills Calcium Carbonate-Vitamin D Chew (Caltrate 600+D Chew) 600-400 Mg-Unit Chew 1 TAB PO BID for Nutritional Supplement, EA 0 Refills Clopidogrel (Plavix) 75 Mg Tab 75 MG PO DAILY for Blood Clot Prevention, #30 TAB [address] (Cymbalta DR) 20 Mg Capdr 40 MG PO DAILY, #30 CAP 0 Refills Epoetin Inj (Procrit Inj) 2,000 Unit/Ml Inj 2000 UNITS SQ SATURDAY for Anemia, #12 VIAL 0 Refills Ferrous Sulfate (Ferrous Sulfate) 325 Mg (65 Mg Iron) Tablet 325 MG PO BIDPC for Nutritional Supplement, #60 TAB 0 Refills Fluticasone-Vilanterol Inh (Breo Ellipta Inh) 100-25 Mcg/Act Inh 1 PUFF INH DAILY, #1 INHALER 0 Refills Use daily at the same time. Gabapentin (Gabapentin) 100 Mg Cap 100 MG PO DAILY for Pain Management for 30 Days, #30 CAP 0 Refills Hydrocodone-Acetaminophen ([place]) 5 Mg-325 Mg Tab 1 TAB PO Q4H PRN for PAIN, #12 TAB 0 Refills Insulin Aspart Inj (Novolog Flexpen Inj) 300 Unit/3 Ml Pen 1 UNITS SQ for Blood Sugar Management, #1 PEN 0 Refills Ipratropium-Albuterol Neb (Duoneb) 0.5-2.5 Mg/3 Ml Neb 1 NEBULE INH Q4HR NEB for SHORTNESS OF BREATH, #120 NEBULE 0 Refills Magnesium Hydroxide Liq (Milk of Magnesia Liq) 400 Mg/5 Ml Susp 15 ML PO DAILY PRN for INDIGESTION OR UPSET STOMACH, #1 BOTTLE 0 Refills Melatonin (Gnp Melatonin) 3 Mg Tab Multiple Vitamins W/ Minerals (Actical) 1 Cap 1 CAP PO DAILY for Nutritional Supplement, CAP 0 Refills Omeprazole (Omeprazole) 20 Mg Tab 20 MG PO DAILY, #30 TAB 0 Refills Tamsulosin (Tamsulosin) 0.4 Mg Cap 0.4 MG HS for Manage Prostate Problems, #30 CAP 0 Refills Anju Fried MD Dec 16, 2017 10:42
[2017-12-16] MEDS ORDERED: NORC5TAB PO (11:56)
[2017-12-16 12:00] VITALS: BP 131/56; PULSE 68; RESP 18; TEMP 97; O2SAT 95
== END 2017-12-16 13:18 | DRG 193 ==
LOC: NEDAMB 17:51 → NEDA 22:44 → NEPHCDU 23:35 → HCPC 12-09 23:30 → N06B 12-12 17:25
PROVIDERS: ADMIT Family Medicine; ATTEND Family Medicine
DX: J18.9 Pneumonia, unspecified organism (principal); G92 Toxic encephalopathy; N18.4 Chronic kidney disease, stage 4 (severe); K22.0 Achalasia of cardia; I13.0 Hypertensive heart and chronic kidney disease with heart failure and stage 1 through stage 4 chronic kidney disease, or unspecified chronic kidney disease; I50.9 Heart failure, unspecified; J44.0 Chronic obstructive pulmonary disease with (acute) lower respiratory infection; F03.90 Unspecified dementia, unspecified severity, without behavioral disturbance, psychotic disturbance, mood disturbance, and anxiety; E11.22 Type 2 diabetes mellitus with diabetic chronic kidney disease; I27.20 Pulmonary hypertension, unspecified; N39.0 Urinary tract infection, site not specified; T40.2X5A Adverse effect of other opioids, initial encounter; Z79.4 Long term (current) use of insulin; B96.5 Pseudomonas (aeruginosa) (mallei) (pseudomallei) as the cause of diseases classified elsewhere; I48.91 Unspecified atrial fibrillation; R55 Syncope and collapse; D63.1 Anemia in chronic kidney disease; S02.2XXA Fracture of nasal bones, initial encounter for closed fracture; W19.XXXA Unspecified fall, initial encounter; Y92.89 Other specified places as the place of occurrence of the external cause; Z53.1 Procedure and treatment not carried out because of patient's decision for reasons of belief and group pressure; Z79.02 Long term (current) use of antithrombotics/antiplatelets; Y92.230 Patient room in hospital as the place of occurrence of the external cause; R06.03 Acute respiratory distress; I34.0 Nonrheumatic mitral (valve) insufficiency; Z95.0 Presence of cardiac pacemaker
CPT/HCPCS: 36600; 70450; 70486; 71045; 71250; 72125; 80053; 81001; 82140; 82805; 82948; 83605; 83880; 84484; 85025; 85027; 85610; 85730; 86077; 86850; 86870; 86880; 86900; 86901; 86902; 86920; 86922; 87077; 87086; 87186; 93880; 94002; 94640; 94664; J0456; J1815; J1940; J2270; J2543; J2765; J7030; J7050; Q4081

== ENCOUNTER 2018-01-24 09:03 | Inpatient (IN) ==
--- NOTE | 2018-01-24 09:48 | ED ---
HPI General Chief Complaint: Altered Mental Status Stated Complaint: AMS Time Seen by Provider: 01/24/18 09:06 Source: EMS and RN notes reviewed Mode of arrival: EMS Limitations: altered mental status History of Present Illness HPI narrative: The patient is a 77-year-old male who presents to the emergency department via EMS for altered mental status. [facility] a [facility] and was noted to have an altered mental status today by staff. EMS states the according the staff the patient is normally awake and alert and oriented 3. Upon arrival the patient responds to painful stimuli, but is unable to provide any further information. No further information is obtainable from the patient. The history is obtained from the patient's paperwork sent from the jail. Related Data Home Medications Medication Instructions Recorded Confirmed acetaminophen [Tylenol] 650 mg PO Q8HR PRN 01/24/18 01/24/18 allopurinol 100 mg PO DAILY 01/24/18 01/24/18 amlodipine 5 mg PO DAILY 01/24/18 01/24/18 ampicillin 500 mg PO TID 01/24/18 01/24/18 atorvastatin [Lipitor] 40 mg PO HS 01/24/18 01/24/18 baclofen 10 mg PO TID 01/24/18 01/24/18 calcium carbonate-vitamin D3 1 tab PO BID 01/24/18 01/24/18 [Calcium 600 + D(3)] clopidogrel [Plavix] 75 mg PO DAILY 01/24/18 01/24/18 docusate sodium [Colace] 100 mg PO DAILY 01/24/18 01/24/18 duloxetine [Cymbalta] 40 mg PO DAILY 01/24/18 01/24/18 epoetin kayleen [Epogen] 2,000 unit SUB-Q WEEKLY 01/24/18 01/24/18 ferrous sulfate 325 mg PO TID 01/24/18 01/24/18 fluticasone-vilanterol [Breo 1 inh INHALATION DAILY 01/24/18 01/24/18 Ellipta] gabapentin 100 mg PO DAILY 01/24/18 01/24/18 glucagon (human recombinant) 1 mg IM Q10M PRN 01/24/18 01/24/18 [Glucagon Emergency Kit (human)] hydrocodone-acetaminophen [[place]] 1 tab PO Q4H PRN 01/24/18 01/24/18 hydrocortisone 1 applic TOPICAL Q6HR PRN 01/24/18 01/24/18 insulin aspart U-100 [Novolog 1 unit SUB-Q QAM 01/24/18 01/24/18 Flexpen U-100 Insulin] ipratropium-albuterol 3 ml INHALATION Q4HR PRN 01/24/18 01/24/18 magnesium hydroxide [Milk of 30 ml PO DAILY PRN 01/24/18 01/24/18 Magnesia] multivitamin with minerals 1 tab PO DAILY 01/24/18 01/24/18 omeprazole 20 mg PO DAILY 01/24/18 01/24/18 ondansetron HCl [Zofran] 4 mg PO Q8HR PRN 01/24/18 01/24/18 prochlorperazine maleate 5 mg PO Q8HR PRN 01/24/18 01/24/18 [Compazine] sodium phosphates [Fleet Enema] 118 ml IA DAILY PRN 01/24/18 01/24/18 tamsulosin 0.4 mg PO HS 01/24/18 01/24/18 Allergies Allergy/AdvReac Type Severity Reaction Status Date / Time cephalexin Allergy Unknown Hives Verified 01/24/18 11:42 Influenza Virus Vaccines Allergy Unknown Hives Verified 01/24/18 11:42 levofloxacin Allergy Unknown Hives Verified 01/24/18 11:42 moxifloxacin Allergy Unknown Hives Verified 01/24/18 11:42 Review of Systems ROS Unobtainable unobtainable due to mental status PMFSH Medical History Medical History Afib (Acute) Anemia (Acute) BPH (benign prostatic hyperplasia) (Acute) CHF (congestive heart failure) (Acute) CKD (chronic kidney disease) (Acute) COPD (chronic obstructive pulmonary disease) (Acute) Dementia (Acute) Depression (Acute) Diabetes (Acute) GERD (gastroesophageal reflux disease) (Acute) Gout (Acute) HTN (hypertension) (Acute) Hyperlipemia (Acute) MRSA (methicillin resistant Staphylococcus aureus) (Acute) Pneumonia (Acute) Sepsis (Acute) UTI (urinary tract infection) (Acute) Social History Social History Substance History: Unable to Obtain Smoking Status: Unknown if ever smoked How Often Do You Have a Drink Containing Alcohol: Unable to Obtain Recent Travel in [facility] within the Last 8 Weeks: No Recent Out of Country Travel within the Last 8 Weeks: No Immunization History Tetanus Immunization: Unable to Assess Hx Influenza Vaccine This Season: No Exam Narrative Exam Narrative: GENERAL: Eyes closed, withdraws to pain. SKIN: Focused skin assessment warm/dry. HEAD: Atraumatic. Normocephalic. EYES: Pupils equal and round. 3 mm bilateral and reactive. ENT: No nasal bleeding or discharge. Dry mucous membranes. NECK: Trachea midline. No JVD. CARDIOVASCULAR: Regular rate and rhythm. No murmur appreciated. Heart rate in the 80s. RESPIRATORY: No accessory muscle use. Rhonchi in the right base. GASTROINTESTINAL: Abdomen soft, obese, no rebound tenderness. Yang catheter in place to leg bag. MUSCULOSKELETAL: Right great toe amputation. Back: Stage I sacral decubitus ulcer. Black stool noted within the adult diaper. NEUROLOGICAL: Eyes closed, withdraws to pain, nonverbal. PSYCHIATRIC: Unable to assess. Course Initial Documented Vital Signs Temperature 99.5 F 01/24/18 09:13 Pulse Rate 85 01/24/18 09:13 Respiratory Rate 12 01/24/18 09:13 Blood Pressure 102/55 L 01/24/18 09:13 Pulse Oximetry 5 L 01/24/18 09:13 Last Documented Vital Signs Temperature 98.7 F 01/24/18 11:45 Pulse Rate 87 01/24/18 11:45 Respiratory Rate 15 01/24/18 11:45 Blood Pressure 120/57 L 01/24/18 11:45 Pulse Oximetry 94 L 01/24/18 11:45 Medical Decision Making MDM Narrative Medical decision making narrative: IV was established, labs are drawn and sent, and the patient was placed on cardiac telemetry monitoring and continuous pulse oximetry monitoring. EKG was ordered and interpreted. Chest x-ray was obtained. Rectal exam was performed, stool was black, but was guaiac negative. Patient does take iron supplementation. ABG was obtained secondary to patient 's oxygen needs at 6 L as well as altered mental status to reveal for hypercapnia. Lactic acid and blood culture were sent to lab. Chest x-ray was obtained. Chest x-ray is unremarkable. White count is minimally elevated 11.3. Lactic acid is unremarkable. The patient's baseline creatinine appears to be approximately 3, is greater than 5 today, no history of dialysis currently. The patient's UA has innumerable WBCs consistent with urosepsis, the patient is allergic to cephalexin as well as Levaquin, therefore, we will avoid cephalosporins and fluoroquinolones. Therefore, the patient was administered imipenem 500 mg intravenously. The patient will be admitted to the on-call medical service. Differential Diagnosis Differential Diagnosis: Differential diagnosis includes sepsis, pneumonia, UTI, acute renal failure, subdural hemorrhage, bacteremia, septicemia, symptomatic anemia, GI bleed, electrolyte abnormality, hyponatremia. Lab Data Lab results reviewed: Yes I reviewed the patient's lab results. Lab results narrative: The patient's creatinine is elevated at 5.45, baseline appears to be 3. Result diagrams: 01/24/18 10:05 01/24/18 10:05 Lab Results 01/24/18 01/24/18 01/24/18 Range/Units 09:42 10:05 10:05 WBC 11.3 H (4.0-11.0) th/mm3 RBC 3.73 L (4.50-5.90) mil/mm3 Hgb 10.3 L (13.0-17.0) gm/dL Hct 31.9 L (39.0-51.0) % MCV 85.5 (80.0-100.0) fL MCH 27.6 (27.0-34.0) pg MCHC 32.3 (32.0-36.0) % RDW 16.3 (11.6-17.2) % Plt Count 320 (150-450) th/mm3 MPV 6.2 L (7.0-11.0) fL Neut % (Auto) 84.3 H (16.0-70.0) % Lymph % (Auto) 6.3 L (9.0-44.0) % Alfalfa % (Auto) 5.4 (0.0-8.0) % Eos % (Auto) 3.5 (0.0-4.0) % Baso % (Auto) 0.5 (0.0-2.0) % Neut # (Auto) 9.5 H (1.8-7.7) th/mm3 Lymph # (Auto) 0.7 L (1.0-4.8) th/mm3 Alfalfa # (Auto) 0.6 (0.0-0.9) th/mm3 Eos # (Auto) 0.4 (0.0-0.4) th/mm3 Baso # (Auto) 0.1 (0.0-0.2) th/mm3 WBC Differential . Differential Comment Auto diff final PT 10.7 (9.8-11.6) sec INR 1.1 Ratio APTT 37.2 H (24.3-30.1) sec Puncture Site Left radial Patient Temperature 98.6 O2 Saturation 98 (90-100) % ABG pH 7.33 L (7.380-7.420) ABG pCO2 45 H (38-42) mmHg ABG pO2 166 H (61-120) mmHg ABG HCO3 23 (22-26) mmol/L ABG O2 Content 15.6 (12.0-20.0) Vol % ABG Base Excess -2.1 L (-2-2) mmol/L ABG Methemoglobin 0.5 (0-2) % [place] Test + Hemoglobin 11.1 L (12.0-16.0) G/DL Carboxyhemoglobin 1.4 (0-4) % O2 Delivery Device Nasal cannula Liter Flow 4.00 L/M Critical Value No Sodium (136-145) meq/L Potassium (3.5-5.1) meq/L Chloride (98-107) meq/L Carbon Dioxide (21.0-32.0) meq/L Anion Gap (5-15) meq/L BUN (7-18) mg/dL Creatinine (0.60-1.30) mg/dL Estimated GFR (>89) mL/min Random Glucose (74-106) mg/dL Lactic Acid (0.4-2.0) mmol/L Calcium (8.5-10.1) mg/dL Total Bilirubin (0.2-1.0) mg/dL AST (15-37) U/L ALT (12-78) U/L Alkaline Phosphatase (45-117) U/L Ammonia (11-32) mcmol/L Total Creatine Kinase (39-308) U/L Troponin I (0.02-0.05) ng/mL Total Protein (6.4-8.2) g/dL Albumin (3.4-5.0) g/dL TSH (0.358-3.740) uIU/mL Urine Color (Yellw/Straw) Urine Clarity (Clear) Urine pH (5.0-8.5) Ur Specific [place] (1.002-1.035) Urine Protein (Neg-Trace) mg/dL Urine Glucose (UA) (Negative) mg/dL Urine Ketones (Negative) mg/dL Urine Occult Blood (Negative) Urine Nitrate (Negative) Urine Bilirubin (Negative) Urine Urobilinogen (Less than 2) mg/dL Ur Leukocyte Esterase (Negative) Urine RBC (0-3) /hpf Urine WBC (0-5) /hpf Urine WBC Clumps (None) Ur Squamous Epith Cells (0-5) /hpf Urine Mucus (Occasional) /lpf Micro UA Comment Urine Culture Comments 01/24/18 01/24/18 01/24/18 Range/Units 10:05 10:05 10:05 WBC (4.0-11.0) th/mm3 RBC (4.50-5.90) mil/mm3 Hgb (13.0-17.0) gm/dL Hct (39.0-51.0) % MCV (80.0-100.0) fL MCH (27.0-34.0) pg MCHC (32.0-36.0) % RDW (11.6-17.2) % Plt Count (150-450) th/mm3 MPV (7.0-11.0) fL Neut % (Auto) (16.0-70.0) % Lymph % (Auto) (9.0-44.0) % Alfalfa % (Auto) (0.0-8.0) % Eos % (Auto) (0.0-4.0) % Baso % (Auto) (0.0-2.0) % Neut # (Auto) (1.8-7.7) th/mm3 Lymph # (Auto) (1.0-4.8) th/mm3 Alfalfa # (Auto) (0.0-0.9) th/mm3 Eos # (Auto) (0.0-0.4) th/mm3 Baso # (Auto) (0.0-0.2) th/mm3 WBC Differential Differential Comment PT (9.8-11.6) sec INR Ratio APTT (24.3-30.1) sec Puncture Site Patient Temperature O2 Saturation (90-100) % ABG pH (7.380-7.420) ABG pCO2 (38-42) mmHg ABG pO2 (61-120) mmHg ABG HCO3 (22-26) mmol/L ABG O2 Content (12.0-20.0) Vol % ABG Base Excess (-2-2) mmol/L ABG Methemoglobin (0-2) % [place] Test Hemoglobin (12.0-16.0) G/DL Carboxyhemoglobin (0-4) % O2 Delivery Device Liter Flow L/M Critical Value Sodium 135 L (136-145) meq/L Potassium 4.2 (3.5-5.1) meq/L Chloride 103 (98-107) meq/L Carbon Dioxide 22.7 (21.0-32.0) meq/L Anion Gap 9 (5-15) meq/L BUN 66 H (7-18) mg/dL Creatinine 5.45 H (0.60-1.30) mg/dL Estimated GFR 10 L (>89) mL/min Random Glucose 90 (74-106) mg/dL Lactic Acid 0.6 (0.4-2.0) mmol/L Calcium 8.2 L (8.5-10.1) mg/dL Total Bilirubin 0.3 (0.2-1.0) mg/dL AST 30 (15-37) U/L ALT 14 (12-78) U/L Alkaline Phosphatase 92 (45-117) U/L Ammonia 36 H (11-32) mcmol/L Total Creatine Kinase 51 (39-308) U/L Troponin I Less than 0.02 L (0.02-0.05) ng/mL Total Protein 7.1 (6.4-8.2) g/dL Albumin 2.2 L (3.4-5.0) g/dL TSH 2.530 (0.358-3.740) uIU/mL Urine Color (Yellw/Straw) Urine Clarity (Clear) Urine pH (5.0-8.5) Ur Specific [place] (1.002-1.035) Urine Protein (Neg-Trace) mg/dL Urine Glucose (UA) (Negative) mg/dL Urine Ketones (Negative) mg/dL Urine Occult Blood (Negative) Urine Nitrate (Negative) Urine Bilirubin (Negative) Urine Urobilinogen (Less than 2) mg/dL Ur Leukocyte Esterase (Negative) Urine RBC (0-3) /hpf Urine WBC (0-5) /hpf Urine WBC Clumps (None) Ur Squamous Epith Cells (0-5) /hpf Urine Mucus (Occasional) /lpf Micro UA Comment Urine Culture Comments 01/24/18 01/24/18 Range/Units 10:05 10:37 WBC (4.0-11.0) th/mm3 RBC (4.50-5.90) mil/mm3 Hgb (13.0-17.0) gm/dL Hct (39.0-51.0) % MCV (80.0-100.0) fL MCH (27.0-34.0) pg MCHC (32.0-36.0) % RDW (11.6-17.2) % Plt Count (150-450) th/mm3 MPV (7.0-11.0) fL Neut % (Auto) (16.0-70.0) % Lymph % (Auto) (9.0-44.0) % Alfalfa % (Auto) (0.0-8.0) % Eos % (Auto) (0.0-4.0) % Baso % (Auto) (0.0-2.0) % Neut # (Auto) (1.8-7.7) th/mm3 Lymph # (Auto) (1.0-4.8) th/mm3 Alfalfa # (Auto) (0.0-0.9) th/mm3 Eos # (Auto) (0.0-0.4) th/mm3 Baso # (Auto) (0.0-0.2) th/mm3 WBC Differential Differential Comment PT (9.8-11.6) sec INR Ratio APTT (24.3-30.1) sec Puncture Site Patient Temperature O2 Saturation (90-100) % ABG pH (7.380-7.420) ABG pCO2 (38-42) mmHg ABG pO2 (61-120) mmHg ABG HCO3 (22-26) mmol/L ABG O2 Content (12.0-20.0) Vol % ABG Base Excess (-2-2) mmol/L ABG Methemoglobin (0-2) % [place] Test Hemoglobin (12.0-16.0) G/DL Carboxyhemoglobin (0-4) % O2 Delivery Device Liter Flow L/M Critical Value Sodium (136-145) meq/L Potassium (3.5-5.1) meq/L Chloride (98-107) meq/L Carbon Dioxide (21.0-32.0) meq/L Anion Gap (5-15) meq/L BUN (7-18) mg/dL Creatinine (0.60-1.30) mg/dL Estimated GFR (>89) mL/min Random Glucose (74-106) mg/dL Lactic Acid (0.4-2.0) mmol/L Calcium (8.5-10.1) mg/dL Total Bilirubin (0.2-1.0) mg/dL AST (15-37) U/L ALT (12-78) U/L Alkaline Phosphatase (45-117) U/L Ammonia (11-32) mcmol/L Total Creatine Kinase Cancelled (39-308) U/L Troponin I (0.02-0.05) ng/mL Total Protein (6.4-8.2) g/dL Albumin (3.4-5.0) g/dL TSH (0.358-3.740) uIU/mL Urine Color [place] (Yellw/Straw) Urine Clarity Turbid H (Clear) Urine pH 5.0 (5.0-8.5) Ur Specific [place] 1.012 (1.002-1.035) Urine Protein 100 H (Neg-Trace) mg/dL Urine Glucose (UA) Negative (Negative) mg/dL Urine Ketones Negative (Negative) mg/dL Urine Occult Blood Large H (Negative) Urine Nitrate Negative (Negative) Urine Bilirubin Negative (Negative) Urine Urobilinogen Less than 2 (Less than 2) mg/dL Ur Leukocyte Esterase Large H (Negative) Urine RBC 74 H (0-3) /hpf Urine WBC (0-5) /hpf Urine WBC Clumps Many H (None) Ur Squamous Epith Cells 4 (0-5) /hpf Urine Mucus Few H (Occasional) /lpf Micro UA Comment Cath-culture ind Urine Culture Comments Cath-cult indicated Imaging Data Radiologist's impression: Chest X-Ray 01/24/18 09:42 CONCLUSION: Underinflated examination with atelectasis at the lung bases. Otherwise, stable examination. Head CT 01/24/18 09:42 CONCLUSION: 1. Stable noncontrast head CT. No acute intracranial abnormality is identified. 2. Stable chronic findings include generalized atrophy and mild periventricular white matter low-attenuation characteristic of chronic microvascular ischemia. ECG Data EKG Prior to Arrival: No Attestation: I personally reviewed and interpreted this ECG as follows: Interpretation: EKG reveals normal sinus rhythm with a rate 80 LOC. Discharge Plan Discharge Disposition Patient Disposition: 30 Still Patient Discharge Condition Condition: Stable Discharge Details Diagnosis: Altered mental status, Urinary tract infection associated with indwelling urethral catheter, Acute kidney injury superimposed on chronic kidney disease Physicians Team ED Provider: Jonathan Cannon Primary Care Provider: UNKNOWN, Rxs /Orders / Referrals /Forms Prescriptions: No Action epoetin kayleen [Epogen] 2,000 unit/mL Solution 2,000 unit SUB-Q WEEKLY RF: 0 atorvastatin [Lipitor] 40 mg Tablet 40 mg PO HS RF: 0 glucagon (human recombinant) [Glucagon Emergency Kit (human)] 1 mg Kit 1 mg IM Q10M PRN (Reason: Hypoglycemia) RF: 0 acetaminophen [Tylenol] 325 mg Tablet 650 mg PO Q8HR PRN (Reason: Mild pain/Temp elevation) RF: 0 ipratropium-albuterol 0.5 mg-3 mg(2.5 mg base)/3 mL Solution For Nebulization 3 ml INHALATION Q4HR PRN (Reason: Shortness Of Breath) RF: 0 ampicillin 500 mg Capsule 500 mg PO TID RF: 0 hydrocodone-acetaminophen [[place]] 5-325 mg Tablet 1 tab PO Q4H PRN (Reason: Pain) RF: 0 prochlorperazine maleate [Compazine] 5 mg Tablet 5 mg PO Q8HR PRN (Reason: Nausea And Vomiting) RF: 0 ondansetron HCl [Zofran] 4 mg Tablet 4 mg PO Q8HR PRN (Reason: Nausea) RF: 0 clopidogrel [Plavix] 75 mg Tablet 75 mg PO DAILY RF: 0 amlodipine 5 mg Tablet 5 mg PO DAILY RF: 0 allopurinol 100 mg Tablet 100 mg PO DAILY RF: 0 magnesium hydroxide [Milk of Magnesia] 400 mg/5 mL Suspension 30 ml PO DAILY PRN (Reason: Constipation) RF: 0 tamsulosin 0.4 mg Capsule,Extended Release 24hr 0.4 mg PO HS RF: 0 baclofen 10 mg Tablet 10 mg PO TID RF: 0 hydrocortisone 1 % Cream 1 applic TOPICAL Q6HR PRN (Reason: Itching) RF: 0 ferrous sulfate 325 mg (65 mg iron) Tablet 325 mg PO TID RF: 0 sodium phosphates [Fleet Enema] 19-7 gram/118 mL Enema 118 ml IA DAILY PRN (Reason: if no results from supp) RF: 0 docusate sodium [Colace] 100 mg Capsule 100 mg PO DAILY RF: 0 omeprazole 20 mg Capsule,Delayed Release(Dr/Ec) 20 mg PO DAILY RF: 0 gabapentin 100 mg Capsule 100 mg PO DAILY RF: 0 multivitamin with minerals Tablet 1 tab PO DAILY RF: 0 insulin aspart U-100 [Novolog Flexpen U-100 Insulin] 100 unit/mL Insulin Pen 1 unit SUB-Q QAM RF: 0 duloxetine [Cymbalta] 20 mg Capsule,Delayed Release(Dr/Ec) 40 mg PO DAILY RF: 0 calcium carbonate-vitamin D3 [Calcium 600 + D(3)] 600 mg(1,500mg) -400 unit Tablet 1 tab PO BID RF: 0 fluticasone-vilanterol [Breo Ellipta] 100-25 mcg/dose Blister With Device 1 inh INHALATION DAILY RF: 0 Discharge Interventions Interventions: Vital Signs Last Done: 01/24/18 11:45 Status ED Status: Admitted Patient
[2018-01-24 10:15] LABS: ABG Base Excess -2.1 mmol/L (-2-2); ABG PCO2 45 mmHg (38-42); ABG PO2 166 mmHg (61-120)
[2018-01-24 10:24] LABS: Baso # (Auto) 0.1 th/mm3 (0.0-0.2); Baso % (Auto) 0.5 % (0.0-2.0); Eos # (Auto) 0.4 th/mm3 (0.0-0.4); Eos % (Auto) 3.5 % (0.0-4.0); Hematocrit 31.9 % (39.0-51.0); Hemoglobin 10.3 gm/dL (13.0-17.0); Lymph # (Auto) 0.7 th/mm3 (1.0-4.8); Lymph % (Auto) 6.3 % (9.0-44.0); Mean Corpuscular HGB Conc 32.3 % (32.0-36.0); Mean Corpuscular Hemoglobin 27.6 pg (27.0-34.0); Mean Corpuscular Volume 85.5 fL (80.0-100.0); Mean Platelet Volume 6.2 fL (7.0-11.0); Mono # (Auto) 0.6 th/mm3 (0.0-0.9); Mono % (Auto) 5.4 % (0.0-8.0); Neut # (Auto) 9.5 th/mm3 (1.8-7.7); Neut % (Auto) 84.3 % (16.0-70.0); Platelet Count 320 th/mm3 (150-450); Red Blood Count 3.73 mil/mm3 (4.50-5.90); Red Cell Distribution Width 16.3 % (11.6-17.2); White Blood Count 11.3 th/mm3 (4.0-11.0)
[2018-01-24 10:31] LABS: Activated Partial Thrombo Time 37.2 sec (24.3-30.1); INR 1.1 Ratio; Prothrombin Time 10.7 sec (9.8-11.6)
--- NOTE | 2018-01-24 10:38 | XR ---
EXAM DATE: 01/24/2018 10:24 AM EDT AGE/SEX: 77 years / Male INDICATIONS: Shortness of breath. CLINICAL DATA: This is the patient's initial encounter. Patient reports that signs and symptoms have been present for 1 day and indicates a pain score of Nonresponsive. MEDICAL/SURGICAL HISTORY: . Congestive heart failure. Chronic obstructive pulmonary disease. An emia. GERD. A-fib. Diabetes. Gallstones. Chronic Kidney disease, . Cholecystectomy. Right foot. Left knee. COMPARISON: [facility] – [place], CHEST SINGLE AP, 12/10/2017. . FINDINGS: Portable AP view of the chest demonstrates a normal-sized cardiac silhouette. Right chest wall cardia c pacing device remains present. Patient is rotated and underinflated. There is less aerated lung in the right hemithorax compared to the left. Atelectasis is present at the lung bases but no pleural ef fusion, airspace consolidation, or pneumothorax is identified. CONCLUSION: Underinflated examination with atelectasis at the lung bases. Otherwise, stable examination. Electronically signed by: Walter Mccauley MD 01/24/2018 10:37 AM EDT
--- NOTE | 2018-01-24 10:42 | CT ---
EXAM DATE: 01/24/2018 10:34 AM EDT AGE/SEX: 77 years / Male INDICATIONS: Unresponsiveness. CLINICAL DATA: This is the patient's initial encounter. Patient reports that signs and symptoms have been present for 1 day and indicates a pain score of Nonresponsive. MEDICAL/SURGICAL HISTORY: Cardiovascular disease. Anemia. Chronic renal disease. COPD. Dementia. D iabetes. Hypertension. None. RADIATION DOSE: 66.34 CTDI (mGy) COMPARISON: [facility] [place], CT BRAIN W/O CONTRAST, 12/08/2017. . TECHNIQUE: CT of the head without contrast. Using automated exposure control and adjustment of the mA and/or kV according to patient size, radiation dose was kept as low as reasonably achievable to ob tain optimal diagnostic quality images. DICOM format image data is available electronically for revi ew and comparison. FINDINGS: Cerebrum: There is mild generalized atrophy and ventricles are normal given the degree of atrophy. M ild periventricular white matter change is present. No midline shift, mass lesion, hemorrhage or acu te infarction. No extraaxial fluid collections are seen. Posterior Fossa: The cerebellum and brainstem demonstrate no acute abnormality. The 4th ventricle is midline. The cerebellopontine angle is within normal limits. Extracranial: The visualized sinuses are clear. Skull: The calvaria is intact. No skull fracture. CONCLUSION: 1. Stable noncontrast head CT. No acute intracranial abnormality is identified. 2. Stable chronic findings include generalized atrophy and mild periventricular white matter low-att enuation characteristic of chronic microvascular ischemia. Electronically signed by: Walter Mccauley MD 01/24/2018 10:41 AM EDT
[2018-01-24 10:46] LABS: Albumin 2.2 g/dL (3.4-5.0); Anion Gap 9 meq/L (5-15); Aspartate Aminotransferase 30 U/L (15-37); Blood Urea Nitrogen 66 mg/dL (7-18); Calcium 8.2 mg/dL (8.5-10.1); Carbon Dioxide 22.7 meq/L (21.0-32.0); Chloride 103 meq/L (98-107); Glomerular Filtration Rate 10 mL/min (>89); Glucose,Random 90 mg/dL (74-106); Potassium 4.2 meq/L (3.5-5.1); Sodium 135 meq/L (136-145)
[2018-01-24 10:52] LABS: Bilirubin,Urine Negative (Negative); Clarity,Urine Turbid (Clear); Color,Urine Amber (Yellw/Straw); Glucose,Urine (UA) Negative (Negative); Leukocyte Esterase,Urine Large (Negative); Mucus,Urine Few /lpf (Occasional); Nitrite,Urine Negative (Negative); Specific Gravity,Urine 1.012 (1.002-1.035); Squamous Epithelial Cell,Urine 4 /hpf (0-5)
[2018-01-24 11:12] LABS: Alanine Aminotransferase 14 U/L (12-78); Alkaline Phosphatase 92 U/L (45-117); Total Protein 7.1 g/dL (6.4-8.2)
[2018-01-24 11:21] LABS: Creatine Kinase 51 U/L (39-308)
--- NOTE | 2018-01-24 12:11 | P.HPFP ---
History of Present Illness Primary Care Physician: UNKNOWN <Mariza Landaverde M - 01/25/18 18:32> UNKNOWN <Chaparro Sandoval - 01/24/18 23:35> History of Present Illness: This patient is a 77-year-old male with history of A. fib on Plavix, CHF, CKD, COPD, dementia, diabetes, and hypertension with an indwelling Yang catheter who was [facility] due to altered mental status. This patient was also recently admitted in December of 2017 for cystitis that was positive for Pseudomonas and treated with Zosyn. At time of interview patient was minimally responsive. He responded to pain, and at times was able to give short yes or no answers by nodding or shaking his head. These moments were few and far inbetween. I was able to elicit that the patient is currently not in any pain and has no difficulty breathing. Per ED note, penitentiary describes this gentleman as normally alert and oriented 3, but was found to be unresponsive by penitentiary staff. There is no prior knowledge of any previous infections or changes in mental status recently. In the ED he was found to be stable with a temperature of 99.5, pulse rate of 85, a respiratory rate of 12, and a blood pressure 102/55, as well as satting 98% on 4 L nasal cannula. Head CT and chest x-ray showed no acute processes. Urinalysis was done in the ED, which was positive for occult blood in the urine , large leukocyte esterase, and high urine protein and a white blood cell count of 11.3. He currently does not meet sepsis criteria but will be admitted due to altered mental status in the setting of a urinary tract infection with indwelling urethral catheter, acute kidney injury superimposed on chronic kidney disease. Of note: CODE STATUS, past medical history, surgical history, medications, allergies, and further history could not be elicited from patient due to unresponsiveness. <Chaparro Sandoval - 01/24/18 23:35> - Diagnosis (1) Urinary tract infection associated with indwelling urethral catheter (2) Altered mental status (3) Acute kidney injury superimposed on chronic kidney disease (4) Hypertension (5) Diabetes (6) Gout (7) Depression (8) Nutrition, metabolism, and development symptoms <Mariza Landaverde - 01/25/18 18:32> (1) Urinary tract infection associated with indwelling urethral catheter (2) Altered mental status (3) Acute kidney injury superimposed on chronic kidney disease (4) Hypertension (5) Diabetes (6) Gout (7) Depression (8) Nutrition, metabolism, and development symptoms <Chaparro Sandoval 01/24/18 22:40> Inpatient Certification: I certify that the inpatient services were ordered in accordance with Medicare regulations governing the order. This includes certification that hospital inpatient services are reasonable and necessary and in the case of services not specified as inpatient-only under 42 CFR 419.22(n), that they are appropriately provided as inpatient services in accordance to with the 2-midnight benchmark under 43 CFR 412.3(e) <Mariza Landaverde 01/25/18 18:32> I certify that the inpatient services were ordered in accordance with Medicare regulations governing the order. This includes certification that hospital inpatient services are reasonable and necessary and in the case of services not specified as inpatient-only under 42 CFR 419.22(n), that they are appropriately provided as inpatient services in accordance to with the 2-midnight benchmark under 43 CFR 412.3(e) <Chaparro Sandoval 01/24/18 12:11> Review of Systems unobtainable due to mental status <Chaparro Sandoval 01/24/18 13:35> PMFSH - History History Provided By: 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, Banana Expert / EMT <Chaparro Sandoval 12:11> - Medical History Medical History: Medical History (Last Updated 01/24/18 @ 09:19 by Cathie Breen) Afib Anemia BPH (benign prostatic hyperplasia) CHF (congestive heart failure) CKD (chronic kidney disease) COPD (chronic obstructive pulmonary disease) Dementia Depression Diabetes GERD (gastroesophageal reflux disease) Gout HTN (hypertension) Hyperlipemia MRSA (methicillin resistant Staphylococcus aureus) Pneumonia Sepsis UTI (urinary tract infection) <Mariza Landaverde - 01/25/18 18:32> Medical History (Last Updated 01/24/18 @ 09:19 by Cathie Breen) Afib Anemia BPH (benign prostatic hyperplasia) CHF (congestive heart failure) CKD (chronic kidney disease) COPD (chronic obstructive pulmonary disease) Dementia Depression Diabetes GERD (gastroesophageal reflux disease) Gout HTN (hypertension) Hyperlipemia MRSA (methicillin resistant Staphylococcus aureus) Pneumonia Sepsis UTI (urinary tract infection) <Chaparro Sandoval - 01/24/18 12:11> - Tobacco History Smoking Status: Unknown if ever smoked <Chaparro Sandoval - 01/24/18 12:11> - Alcohol History How Often Do You Have a Drink Containing Alcohol: Unable to Obtain <Chaparro Sandoval - 01/24/18 12:11> - Substance Use History Substance History: Unable to Obtain <Chaparro Sandoval - 01/24/18 12:11> - Travel History Recent Travel in the [facility] Within the Last 8 Weeks: No <Chaparro Sandoval - 12:11> Recent Travel Out of the Country Within the Last 8 Weeks: No <Chaparro Sandoval - 01/24/18 12:11> - Immunization History Tetanus Immunization: Unable to Assess <Chaparro Sandoval 01/24/18 12:11> Hx Influenza Vaccine This Season: No <Chaparro Sandoval 01/24/18 12:11> Medications and Allergies Allergies Allergy/AdvReac Type Severity Reaction Status Date / Time cephalexin Allergy Unknown Hives Verified 01/24/18 11:42 Influenza Virus Vaccines Allergy Unknown Hives Verified 01/24/18 11:42 levofloxacin Allergy Unknown Hives Verified 01/24/18 11:42 moxifloxacin Allergy Unknown Hives Verified 01/24/18 11:42 <Mariza Landaverde M - 01/25/18 18:32> Home Medications Medication Instructions Recorded Confirmed Type acetaminophen [Tylenol] 650 mg PO Q8HR PRN 01/24/18 01/24/18 History allopurinol 100 mg PO DAILY 01/24/18 01/24/18 History amlodipine 5 mg PO DAILY 01/24/18 01/24/18 History ampicillin 500 mg PO TID 01/24/18 01/24/18 History atorvastatin [Lipitor] 40 mg PO HS 01/24/18 01/24/18 History baclofen 10 mg PO TID 01/24/18 01/24/18 History calcium carbonate-vitamin D3 1 tab PO BID 01/24/18 01/24/18 History [Calcium 600 + D(3)] clopidogrel [Plavix] 75 mg PO DAILY 01/24/18 01/24/18 History docusate sodium [Colace] 100 mg PO DAILY 01/24/18 01/24/18 History duloxetine [Cymbalta] 40 mg PO DAILY 01/24/18 01/24/18 History epoetin kayleen [Epogen] 2,000 unit SUB-Q WEEKLY 01/24/18 01/24/18 History ferrous sulfate 325 mg PO TID 01/24/18 01/24/18 History fluticasone-vilanterol [Breo 1 inh INHALATION DAILY 01/24/18 01/24/18 History Ellipta] gabapentin 100 mg PO DAILY 01/24/18 01/24/18 History glucagon (human recombinant) 1 mg IM Q10M PRN 01/24/18 01/24/18 History [Glucagon Emergency Kit (human)] hydrocodone-acetaminophen [[place]] 1 tab PO Q4H PRN 01/24/18 01/24/18 History hydrocortisone 1 applic TOPICAL Q6HR PRN 01/24/18 01/24/18 History insulin aspart U-100 [Novolog 1 unit SUB-Q QAM 01/24/18 01/24/18 History Flexpen U-100 Insulin] ipratropium-albuterol 3 ml INHALATION Q4HR PRN 01/24/18 01/24/18 History magnesium hydroxide [Milk of 30 ml PO DAILY PRN 01/24/18 01/24/18 History Magnesia] multivitamin with minerals 1 tab PO DAILY 01/24/18 01/24/18 History omeprazole 20 mg PO DAILY 01/24/18 01/24/18 History ondansetron HCl [Zofran] 4 mg PO Q8HR PRN 01/24/18 01/24/18 History prochlorperazine maleate 5 mg PO Q8HR PRN 01/24/18 01/24/18 History [Compazine] sodium phosphates [Fleet Enema] 118 ml ID DAILY PRN 01/24/18 01/24/18 History tamsulosin 0.4 mg PO HS 01/24/18 01/24/18 History <Mariza Landaverde - 01/25/18 18:32> Active Medications: Active Medications Al Hydroxide/Mg Hydroxide (Milk Of Magnesia Liq) 30 ml PO Q12H PRN PRN Reason: Mild Constipation Albuterol (Duoneb Neb (Prn)) 1 ampul NEB Q4HR NEB PRN PRN Reason: Shortness Of Breath Bisacodyl (Dulcolax Supp) 10 mg RECTAL DAILY PRN PRN Reason: SEVERE CONSITIPATION Dextrose (D50w Vial) 50 ml IV.PUSH UNSCH PRN PRN Reason: PER HYPOGLYCEMIA PROTOCOL Epoetin Kayleen (Epogen Inj) 2,000 unit SQ WEEKLY RITESH Glucagon (Glucagon Inj) 1 mg OTHER PRN PRN PRN Reason: for Hypoglycemia Protocol Heparin Sodium (Porcine) (Heparin Inj) 5,000 units SQ Q8HR [facility] Last Admin: 01/25/18 13:00 Dose: 5,000 units Hydrocortisone Acetate (Hydrocortisone 1% Cream) 1 applicatio TOPICAL Q6HR PRN PRN Reason: Itching Sodium Chloride (Ns Inj) 1,000 mls @ 100 mls/hr IV.CONT .Q10H [facility] Last Admin: 01/25/18 08:54 Dose: 100 mls/hr Meropenem 500 mg/ Sodium (Chloride) 100 mls @ 200 mls/hr IV.SIG Q12H [facility] Last Admin: 01/25/18 12:51 Dose: 200 mls/hr Insulin Aspart (Novolog Insulin Correctional Sugar Inj) 0 unit SQ ACHS [facility]; Protocol Last Admin: 01/25/18 18:03 Dose: Not Given Lactulose (Lactulose Liq) 30 ml PO DAILY PRN PRN Reason: SEVERE CONSITIPATION Ondansetron HCl (Zofran Odt) 4 mg SL Q6H PRN PRN Reason: NAUSEA OR VOMITING Senna/Docusate Sodium (Demetria-Colace) 1 tab PO BID PRN PRN Reason: CONSTIPATION Sennosides (Senokot) 17.2 mg PO Q12H PRN PRN Reason: Moderate Constipation Sodium Chloride (Ns Flush) 2 ml IV.FLUSH PRN PRN PRN Reason: FLUSH AFTER USING IV ACCESS <Mariza Landaverde - 01/25/18 18:32> Active Medications Imipenem/Cilastatin Sodium 500 (mg/ Sodium Chloride) 100 mls @ 200 mls/hr IV.SIG ONCE STA Stop: 01/24/18 12:13 Last Admin: 01/24/18 11:59 Dose: 200 mls/hr Sodium Chloride (Ns Flush) 2 ml IV.FLUSH PRN PRN PRN Reason: FLUSH AFTER USING IV ACCESS <Chaparro Sandoval - 01/24/18 12:11> Exam Vital signs: Vital Signs 01/24/18 20:00 01/25/18 00:00 01/25/18 04:00 Temperature 98.2 F 98.1 F 98 F Pulse Rate 66 68 72 Respiratory Rate 16 20 16 Blood Pressure 128/58 L 128/60 131/75 Pulse Oximetry 99 100 100 01/25/18 08:00 01/25/18 09:00 01/25/18 12:00 Temperature 97.5 F L 97.5 F L Pulse Rate 67 71 61 Respiratory Rate 15 16 Blood Pressure 138/63 129/63 Pulse Oximetry 100 100 01/25/18 16:00 Temperature 97.4 F L Pulse Rate 70 Respiratory Rate 14 Blood Pressure 113/64 Pulse Oximetry 100 Intake & Output 01/24/18 01/25/18 01/25/18 18:59 06:59 18:59 Intake Total 100 / 100 100 / 100 Output Total 1200 / 1200 650 / 650 Balance 100 / 100 -1100 / -1100 -650 / -650 Weight 113.398 kg 114 kg Intake: IV 100 / 100 100 / 100 Primaxin Inj 250 MG In NS Inj 100 / 100 100 ML @ 200 mls/hr IV.SIG Q12H RITESH Rx#:[id number] Primaxin Inj 500 MG In NS Inj 100 / 100 100 ML @ 200 mls/hr IV.SIG ONCE STA Rx#:[id number] Output: Urine Amount (Catheter) 1200 / 1200 650 / 650 Indwelling Urethral Catheter 1200 / 1200 650 / 650 Other: Date of Last Bowel Movement 01/25/18 # Bowel Movements 1 2 # Incontinent Bowel Movements 1 <Mariza Landaverde M - 01/25/18 18:32> Vital Signs 01/24/18 09:13 01/24/18 09:26 01/24/18 10:11 Temperature 99.5 F Pulse Rate 85 82 Respiratory Rate 12 12 Blood Pressure 102/55 L 95/47 L Pulse Oximetry 5 L 94 L 98 01/24/18 10:22 01/24/18 10:47 01/24/18 11:45 Temperature 98.7 F Pulse Rate 84 87 Respiratory Rate 18 15 Blood Pressure 98/61 L 120/57 L Pulse Oximetry 100 100 94 L Intake & Output 01/23/18 01/24/18 01/24/18 18:59 06:59 18:59 Weight 113.398 kg <Chaparro Sandoval 01/24/18 12:11> - Constitutional morbidly obese, somnolent, obtunded <Chaparro Snadoval 01/24/18 13:35> - Routine HEENT Exam Head: Present: normocephalic, atraumatic <Chaparro Sandoval 01/24/18 13:35> Eye: Present: PERRL. Absent: conjunctival icterus, scleral injection <Chaparro Sandoval 01/24/18 13:35> ENT: Present: mucous membranes dry <Chaparro Sandoval 01/24/18 13:35> Comments: Mucous membranes dry, gurgling upper airway sounds during breathing, patient's lips appear to be cracking very dry. <Chaparro Sandoval 01/24/18 13:35> - Routine Neck Exam Present: supple. Absent: JVD, carotid bruit, lymphadenopathy, trauma <Chaparro Sandoval 01/24/18 13:35> - Routine Respiratory Exam Present: rhonchi. Absent: accessory muscle use, decreased breath sounds < Chaparro Sandoval 01/24/18 13:35> Comments: Patient sounded rhonchorous presumptively due to upper airway secretions, lungs appeared to have good aeration and air movement throughout all lung bazan bilaterally. No wheezes or crackles were appreciated. No accessory muscle use. <Chaparro Sandoval 01/24/18 13:35> - Routine Cardiovascular Exam Comments: Heart sounds could not be appreciated due to the sounds of upper airway secretions and rhonchi. Pulse was regular. <Chaparro Sandoval 01/24/18 13:35> - Routine Abdominal Exam Present: soft, normoactive bowel sounds <Chaparro Sandoval 01/24/18 13:35> Comments: Pain cannot be elicited to patient's mental status. The abdomen was soft and obese without ecchymoses or signs of infection. No organomegaly was noted. <Chaparro Sandoval 01/24/18 13:35> - Routine Extremities Exam Present: pulses intact, normal capillary refill, amputation. Absent: cyanosis, clubbing, edema <Chaparro Sandoval 01/24/18 13:35> Comments: Patient missing big toe on right foot as well as a small noninfected stage I ulcer on the medial aspect of second digit of the right foot measuring about 1 cm in diameter. <Chaparro Sandoval Jaqui 01/24/18 13:35> - Routine Skin Exam Comments: Overall skin examination was done with exception of the posterior side of the patient due to his habitus and mental status he was not able to be manipulated. Anterior and lateral portions of the skin showed no acute infections, ecchymoses, or breaks in skin with exception of a small stage I ulcer on the second digit of his right foot medially with no signs of infection. Patient did have some small erythema and irritation around the head of the penis on the uncircumcised skin. Most likely due to irritation from Yang catheter. <Chaparro Sandoval Jaqui 01/24/18 13:35> - Routine Neurological Exam Absent: alert, oriented X3, facial asymmetry <Sandoval,Chaparro Nails 01/24/18 13:35> Patient was unresponsive and responded only to pain. He also had short moments of responding to yes/no questions via head shake and nod but these moments were few and far between. Overall the patient cannot be communicated with. <Sandoval,Jose Arjun Nails 01/24/18 13:35> - Detailed Neurological Exam: Coma Scale Eye Opening: To pressure <Chaparro Sandoval Jaqui 01/24/18 13:35> Verbal Response: Sounds <Chaparro Sandoval Jaqui 01/24/18 13:35> Motor Response: None <Chaparro Sandoval Arjun Nails 01/24/18 13:35> [place] Coma Scale Total: 5 <Chaparro Sandoval Jaqui 01/24/18 23:35> Results - Labs Result diagrams: 01/25/18 06:54 01/25/18 06:54 <Mariza Landaverde - 01/25/18 18:32> Abnormal lab results 01/24/18 01/24/18 01/25/18 Range/Units 10:37 21:34 06:54 RBC 3.51 L (4.50-5.90) mil/mm3 Hgb 9.9 L (13.0-17.0) gm/dL Hct 30.2 L (39.0-51.0) % MPV 6.1 L (7.0-11.0) fL Neut % (Auto) 84.7 H (16.0-70.0) % Lymph % (Auto) 4.5 L (9.0-44.0) % Eos % (Auto) 5.0 H (0.0-4.0) % Neut # (Auto) 8.1 H (1.8-7.7) th/mm3 Lymph # (Auto) 0.4 L (1.0-4.8) th/mm3 Eos # (Auto) 0.5 H (0.0-0.4) th/mm3 Chloride (98-107) meq/L BUN (7-18) mg/dL Creatinine (0.60-1.30) mg/dL Estimated GFR (>89) mL/min POC Glucose 135 H (68-110) mg/dl Calcium (8.5-10.1) mg/dL AST (15-37) U/L ALT (12-78) U/L Albumin (3.4-5.0) g/dL Urine Clarity Turbid H (Clear) Urine Protein 100 H (Neg-Trace) mg/dL Urine Occult Blood Large H (Negative) Ur Leukocyte Esterase Large H (Negative) Urine RBC 74 H (0-3) /hpf Urine WBC Clumps Many H (None) Urine Mucus Few H (Occasional) /lpf 01/25/18 01/25/18 01/25/18 Range/Units 06:54 11:48 16:41 RBC (4.50-5.90) mil/mm3 Hgb (13.0-17.0) gm/dL Hct (39.0-51.0) % MPV (7.0-11.0) fL Neut % (Auto) (16.0-70.0) % Lymph % (Auto) (9.0-44.0) % Eos % (Auto) (0.0-4.0) % Neut # (Auto) (1.8-7.7) th/mm3 Lymph # (Auto) (1.0-4.8) th/mm3 Eos # (Auto) (0.0-0.4) th/mm3 Chloride 109 H (98-107) meq/L BUN 61 H (7-18) mg/dL Creatinine 5.09 H (0.60-1.30) mg/dL Estimated GFR 11 L (>89) mL/min POC Glucose 118 H 127 H (68-110) mg/dl Calcium 8.1 L (8.5-10.1) mg/dL AST 13 L (15-37) U/L ALT 10 L (12-78) U/L Albumin 1.9 L (3.4-5.0) g/dL Urine Clarity (Clear) Urine Protein (Neg-Trace) mg/dL Urine Occult Blood (Negative) Ur Leukocyte Esterase (Negative) Urine RBC (0-3) /hpf Urine WBC Clumps (None) Urine Mucus (Occasional) /lpf Short CBC 01/25/18 Range/Units 06:54 WBC 9.6 (4.0-11.0) th/mm3 Hgb 9.9 L (13.0-17.0) gm/dL Hct 30.2 L (39.0-51.0) % Plt Count 255 (150-450) th/mm3 BMP 01/25/18 06:54 Sodium 143 Potassium 3.8 Chloride 109 H Carbon Dioxide 22.8 BUN 61 H Creatinine 5.09 H Calcium 8.1 L Liver Function 01/25/18 Range/Units 06:54 Total Bilirubin 0.3 (0.2-1.0) mg/dL AST 13 L (15-37) U/L ALT 10 L (12-78) U/L Alkaline Phosphatase 88 (45-117) U/L Albumin 1.9 L (3.4-5.0) g/dL Urine 01/24/18 Range/Units 10:37 Urine Color Allyn (Yellw/Straw) Urine Clarity Turbid H (Clear) Urine pH 5.0 (5.0-8.5) Ur Specific [place] 1.012 (1.002-1.035) Urine Protein 100 H (Neg-Trace) mg/dL Urine Glucose (UA) Negative (Negative) mg/dL <Mariza Landaverde - 01/25/18 18:32> Abnormal lab results 01/24/18 01/24/18 01/24/18 Range/Units 09:42 10:05 10:05 WBC 11.3 H (4.0-11.0) th/mm3 RBC 3.73 L (4.50-5.90) mil/mm3 Hgb 10.3 L (13.0-17.0) gm/dL Hct 31.9 L (39.0-51.0) % MPV 6.2 L (7.0-11.0) fL Neut % (Auto) 84.3 H (16.0-70.0) % Lymph % (Auto) 6.3 L (9.0-44.0) % Neut # (Auto) 9.5 H (1.8-7.7) th/mm3 Lymph # (Auto) 0.7 L (1.0-4.8) th/mm3 APTT 37.2 H (24.3-30.1) sec ABG pH 7.33 L (7.380-7.420) ABG pCO2 45 H (38-42) mmHg ABG pO2 166 H (61-120) mmHg ABG Base Excess -2.1 L (-2-2) mmol/L Hemoglobin 11.1 L (12.0-16.0) G/DL Sodium (136-145) meq/L BUN (7-18) mg/dL Creatinine (0.60-1.30) mg/dL Estimated GFR (>89) mL/min Calcium (8.5-10.1) mg/dL Ammonia (11-32) mcmol/L Troponin I (0.02-0.05) ng/mL Albumin (3.4-5.0) g/dL Urine Clarity (Clear) Urine Protein (Neg-Trace) mg/dL Urine Occult Blood (Negative) Ur Leukocyte Esterase (Negative) Urine RBC (0-3) /hpf Urine WBC Clumps (None) Urine Mucus (Occasional) /lpf 01/24/18 01/24/18 01/24/18 Range/Units 10:05 10:05 10:37 WBC (4.0-11.0) th/mm3 RBC (4.50-5.90) mil/mm3 Hgb (13.0-17.0) gm/dL Hct (39.0-51.0) % MPV (7.0-11.0) fL Neut % (Auto) (16.0-70.0) % Lymph % (Auto) (9.0-44.0) % Neut # (Auto) (1.8-7.7) th/mm3 Lymph # (Auto) (1.0-4.8) th/mm3 APTT (24.3-30.1) sec ABG pH (7.380-7.420) ABG pCO2 (38-42) mmHg ABG pO2 (61-120) mmHg ABG Base Excess (-2-2) mmol/L Hemoglobin (12.0-16.0) G/DL Sodium 135 L (136-145) meq/L BUN 66 H (7-18) mg/dL Creatinine 5.45 H (0.60-1.30) mg/dL Estimated GFR 10 L (>89) mL/min Calcium 8.2 L (8.5-10.1) mg/dL Ammonia 36 H (11-32) mcmol/L Troponin I Less than 0.02 L (0.02-0.05) ng/mL Albumin 2.2 L (3.4-5.0) g/dL Urine Clarity Turbid H (Clear) Urine Protein 100 H (Neg-Trace) mg/dL Urine Occult Blood Large H (Negative) Ur Leukocyte Esterase Large H (Negative) Urine RBC 74 H (0-3) /hpf Urine WBC Clumps Many H (None) Urine Mucus Few H (Occasional) /lpf Short CBC 01/24/18 Range/Units 10:05 WBC 11.3 H (4.0-11.0) th/mm3 Hgb 10.3 L (13.0-17.0) gm/dL Hct 31.9 L (39.0-51.0) % Plt Count 320 (150-450) th/mm3 BMP 01/24/18 10:05 Sodium 135 L Potassium 4.2 Chloride 103 Carbon Dioxide 22.7 BUN 66 H Creatinine 5.45 H Calcium 8.2 L Cardiac Enzymes 01/24/18 01/24/18 Range/Units 10:05 10:05 Total Creatine Kinase 51 Cancelled (39-308) U/L Troponin I Less than 0.02 L (0.02-0.05) ng/mL Liver Function 01/24/18 Range/Units 10:05 Total Bilirubin 0.3 (0.2-1.0) mg/dL AST 30 (15-37) U/L ALT 14 (12-78) U/L Alkaline Phosphatase 92 (45-117) U/L Albumin 2.2 L (3.4-5.0) g/dL Urine 01/24/18 Range/Units 10:37 Urine Color [place] (Yellw/Straw) Urine Clarity Turbid H (Clear) Urine pH 5.0 (5.0-8.5) Ur Specific [place] 1.012 (1.002-1.035) Urine Protein 100 H (Neg-Trace) mg/dL Urine Glucose (UA) Negative (Negative) mg/dL <Chaparro Sandoval 01/24/18 12:11> - Imaging Impressions Chest X-Ray 01/24/18 09:42 CONCLUSION: Underinflated examination with atelectasis at the lung bases. Otherwise, stable examination. Head CT 01/24/18 09:42 CONCLUSION: 1. Stable noncontrast head CT. No acute intracranial abnormality is identified. 2. Stable chronic findings include generalized atrophy and mild periventricular white matter low-attenuation characteristic of chronic microvascular ischemia. <Chaparro Sandoval 01/24/18 12:11> Caprini VTE Risk Assessment Caprini VTE Risk Assessment: Moderate/High Risk (score >= 2) <Chaparro Sandoval 01/24/18 23:35> Caprini Risk Assessment Model: Point Value = 1 Point Value = 2 Point Value = 3 Point Value = 5 Age 41-60 Minor surgery BMI > 25 kg/m2 Swollen legs Varicose veins or History of unexplained or recurrent spontaneous Oral contraceptives or hormone replacement Sepsis (< 1 month) Serious lung disease, including pneumonia (< 1 month) Abnormal pulmonary function Acute myocardial infarction Congestive heart failure (< 1 month) History of inflammatory bowel disease Medical patient at bed rest Age 61-74 Arthroscopic surgery Major open surgery (> 45 min) Laparoscopic surgery (> 45 min) Malignancy Confined to bed (> 72 hours) Immobilizing plaster cast Central venous access Age >= 75 History of VTE Family history of VTE Factor V Leiden Prothrombin [id number] Lupus anticoagulant Anticardiolipin antibodies Elevated serum homocysteine Heparin-induced thrombocytopenia Other congenital or acquired thrombophilia Stroke (< 1 month) Elective arthroplasty Hip, pelvis, or leg fracture Acute spinal cord injury (< 1 month) <Mariza Landaverde - 01/25/18 18:32> Point Value = 1 Point Value = 2 Point Value = 3 Point Value = 5 Age 41-60 Minor surgery BMI > 25 kg/m2 Swollen legs Varicose veins or History of unexplained or recurrent spontaneous Oral contraceptives or hormone replacement Sepsis (< 1 month) Serious lung disease, including pneumonia (< 1 month) Abnormal pulmonary function Acute myocardial infarction Congestive heart failure (< 1 month) History of inflammatory bowel disease Medical patient at bed rest Age 61-74 Arthroscopic surgery Major open surgery (> 45 min) Laparoscopic surgery (> 45 min) Malignancy Confined to bed (> 72 hours) Immobilizing plaster cast Central venous access Age >= 75 History of VTE Family history of VTE Factor V Leiden Prothrombin [id number] Lupus anticoagulant Anticardiolipin antibodies Elevated serum homocysteine Heparin-induced thrombocytopenia Other congenital or acquired thrombophilia Stroke (< 1 month) Elective arthroplasty Hip, pelvis, or leg fracture Acute spinal cord injury (< 1 month) <Chaparro Sandoval - 01/24/18 12:11> Prophylaxis Regimen: Total Risk Factor Score Risk Level Prophylaxis Regimen 0-1 Low Early ambulation 2 Moderate Order ONE of the following: *Sequential Compression Device (SCD) *Heparin 5000 units SQ BID 3-4 Higher Order ONE of the following medications: *Heparin 5000 units SQ TID *Enoxaparin/Lovenox 40 mg SQ daily (WT < 150 kg, CrCl > 30 mL/min) *Enoxaparin/Lovenox 30 mg SQ daily (WT < 150 kg, CrCl > 10-29 mL/min) *Enoxaparin/Lovenox 30 mg SQ BID (WT < 150 kg, CrCl > 30 mL/min) AND/OR *Sequential Compression Device (SCD) 5 or more Highest Order ONE of the following medications: *Heparin 5000 units SQ TID (Preferred with Epidurals) *Enoxaparin/Lovenox 40 mg SQ daily (WT < 150 kg, CrCl > 30 mL/min) *Enoxaparin/Lovenox 30 mg SQ daily (WT < 150 kg, CrCl > 10-29 mL/min) *Enoxaparin/Lovenox 30 mg SQ BID (WT < 150 kg, CrCl > 30 mL/min) AND *Sequential Compression Device (SCD) <Mariza Landaverde - 01/25/18 18:32> Total Risk Factor Score Risk Level Prophylaxis Regimen 0-1 Low Early ambulation 2 Moderate Order ONE of the following: *Sequential Compression Device (SCD) *Heparin 5000 units SQ BID 3-4 Higher Order ONE of the following medications: *Heparin 5000 units SQ TID *Enoxaparin/Lovenox 40 mg SQ daily (WT < 150 kg, CrCl > 30 mL/min) *Enoxaparin/Lovenox 30 mg SQ daily (WT < 150 kg, CrCl > 10-29 mL/min) *Enoxaparin/Lovenox 30 mg SQ BID (WT < 150 kg, CrCl > 30 mL/min) AND/OR *Sequential Compression Device (SCD) 5 or more Highest Order ONE of the following medications: *Heparin 5000 units SQ TID (Preferred with Epidurals) *Enoxaparin/Lovenox 40 mg SQ daily (WT < 150 kg, CrCl > 30 mL/min) *Enoxaparin/Lovenox 30 mg SQ daily (WT < 150 kg, CrCl > 10-29 mL/min) *Enoxaparin/Lovenox 30 mg SQ BID (WT < 150 kg, CrCl > 30 mL/min) AND *Sequential Compression Device (SCD) <Chaparro Sandoval - 01/24/18 12:11> Assessment and Plan - Assessment (1) Urinary tract infection associated with indwelling urethral catheter Code(s): T83.511A - Infection and inflammatory reaction due to indwelling urethral catheter, initial encounter; N39.0 - Urinary tract infection, site not specified Status: Acute (2) Altered mental status Code(s): R41.82 - Altered mental status, unspecified Status: Acute (3) Acute kidney injury superimposed on chronic kidney disease Code(s): N17.9 - Acute kidney failure, unspecified; N18.9 - Chronic kidney disease, unspecified Status: Acute (4) Hypertension Code(s): I10 - Essential (primary) hypertension Status: Acute (5) Diabetes Code(s): E11.9 - Type 2 diabetes mellitus without complications Status: Acute (6) Gout Code(s): M10.9 - Gout, unspecified Status: Acute (7) Depression Code(s): F32.9 - Major depressive disorder, single episode, unspecified Status : Acute (8) Nutrition, metabolism, and development symptoms Code(s): R63.8 - Other symptoms and signs concerning food and fluid intake Status: Acute <Mariza Landaverde - 01/25/18 18:32> (1) Urinary tract infection associated with indwelling urethral catheter Code(s): T83.511A - Infection and inflammatory reaction due to indwelling urethral catheter, initial encounter; N39.0 - Urinary tract infection, site not specified Status: Acute Plan: This patient was admitted for urinary tract infection in the setting of altered mental status and indwelling Yang catheter. He was also found to have an acute kidney injury superimposed on stage IV chronic kidney disease. On examination his Yang catheter contained a mixture what appears to be blood mixed with urine. In the ED urinalysis was positive for high-protein, large occult blood, and large amounts of leukocyte esterase and urine was sent for culture. -Remove and replace current Yang catheter -Continue imipenem -Monitor CBC -Monitor vitals -Follow-up with urine cultures and sensitivities (2) Altered mental status Code(s): R41.82 - Altered mental status, unspecified Status: Acute Plan: Patient was found to be in altered mental status by [facility]ent[facility] caregivers, patient known to be normally alert and oriented 3. On admission patient had a white blood cell count of 11.3 and a suspected urinary tract infection due to urinary leukocyte esterase found on UA. Patient was found to have a BUN of 66 on admission as well as a creatinine of 5.45. Ammonia level slightly increased at 36. Sodium levels at 135 on the low side of normal. H/H at 10.3/31.9. ABG was completed in the ED and blood pH was found to be slightly ascitic at 7.33 with a low range of normal being 7.38. Altered mental status likely due to UTI versus uremia. Nephrology will be consulted regarding necessity of dialysis at this time. -See plan for UTI above (3) Acute kidney injury superimposed on chronic kidney disease Code(s): N17.9 - Acute kidney failure, unspecified; N18.9 - Chronic kidney disease, unspecified Status: Acute Plan: On admission this patient was found to have an SHAHLA superimposed on chronic kidney disease of unknown stage. From previous admissions this patient has a baseline creatinine of 3 and on admission had a creatinine of 5.45 and BUN of 66. Through previous medical record review it was revealed that in November 2018 this patient had an ultrasound of both kidneys which showed a 2.2 cm cyst on the upper pole of the right kidney, moderate bilateral hydronephrosis with left ureter dilated, small amount of bladder debris, and increased renal echogenicity characteristic of medical renal disease. In the ED patient's UA showed large amounts of occult blood. - Continue IV fluids with normal saline - Avoid any nephrotoxic agents - Hold Plavix due to hematuria - Continue imipenem until urinary cultures return - Nephrology consult appreciated - Follow-up with CT scan of the abdomen without contrast - Monitor BUN/creatinine - Monitor electrolytes replete as necessary (4) Hypertension Code(s): I10 - Essential (primary) hypertension Status: Acute Plan: Patient has history of hypertension currently treated with amlodipine. On admission patient had a blood pressure of 102/55. Blood pressure currently controlled. -Hold home blood pressure medications as patient's blood pressure is in the low to low normal range (5) Diabetes Code(s): E11.9 - Type 2 diabetes mellitus without complications Status: Acute Plan: Patient is a known type II diabetic on home NovoLog. -Insulin sliding scale while inpatient (6) Gout Code(s): M10.9 - Gout, unspecified Status: Acute Plan: Patient with a past medical history of gout managed with allopurinol at home. No indication of acute gout attack at this time. -Hold allopurinol resume if necessary. (7) Depression Code(s): F32.9 - Major depressive disorder, single episode, unspecified Status : Acute Plan: According to penitentiary patient suffers from depression. No previous psychiatric history at this time. -Hold any psychiatric medications until patient is alert, oriented, and arousable and able to be assessed. (8) Nutrition, metabolism, and development symptoms Code(s): R63.8 - Other symptoms and signs concerning food and fluid intake Status: Acute Plan: Fluids: Continue hydration with normal saline at 100 mL/h per nephrology Electrolytes: Replete as needed Nutrition: N.p.o. DVT prophylaxis: Heparin 5000 units SQ every 8 hours <Chaparro Sandoval - 01/24/18 22:40> - Attending Attestation The exam, history, and the medical decision-making described in the above note were completed with the assistance of the resident physician. I reviewed and agree with the findings presented. I attest that I had a [id number] encounter with the patient on the same day, and personally performed and documented my assessment and findings in the medical record. he was quite somnolent and "had the O sign" when I saw him in his room on the day of admission. appreciate help of Nephrology <Mariza Landavedre Zuhair - 01/25/18 18:32> <Chaparro Sandoval O - Last Filed: 01/24/18 22:40> (1) Urinary tract infection associated with indwelling urethral catheter Qualifiers: Encounter type: initial encounter Qualified Code(s): T83.511A - Infection and inflammatory reaction due to indwelling urethral catheter, initial encounter ; N39.0 - Urinary tract infection, site not specified (2) Altered mental status Qualifiers: Altered mental status type: delirium Qualified Code(s): R41.0 - Disorientation, unspecified <[place]Ul[place] M - Last Filed: 01/25/18 18:32> (1) Urinary tract infection associated with indwelling urethral catheter Qualifiers: Encounter type: initial encounter Qualified Code(s): T83.511A - Infection and inflammatory reaction due to indwelling urethral catheter, initial encounter ; N39.0 - Urinary tract infection, site not specified (2) Altered mental status Qualifiers: Altered mental status type: delirium Qualified Code(s): R41.0 - Disorientation, unspecified <Chaparro Sandoval - Last Filed: 01/24/18 22:40> (1) Urinary tract infection associated with indwelling urethral catheter Qualifiers: Encounter type: initial encounter Qualified Code(s): T83.511A - Infection and inflammatory reaction due to indwelling urethral catheter, initial encounter ; N39.0 - Urinary tract infection, site not specified (2) Altered mental status Qualifiers: Altered mental status type: delirium Qualified Code(s): R41.0 - Disorientation, unspecified <Mariza Landaverde M - Last Filed: 01/25/18 18:32> (1) Urinary tract infection associated with indwelling urethral catheter Qualifiers: Encounter type: initial encounter Qualified Code(s): T83.511A - Infection and inflammatory reaction due to indwelling urethral catheter, initial encounter ; N39.0 - Urinary tract infection, site not specified (2) Altered mental status Qualifiers: Altered mental status type: delirium Qualified Code(s): R41.0 - Disorientation, unspecified
[2018-01-24] MEDS ORDERED: Senna/Docusate Sodium 8.6/50 MG Tablet PO PRN (12:34)
[2018-01-24] MEDS ORDERED: Bisacodyl 10 MG Supp RECTAL PRN (12:34)
[2018-01-24] MEDS ORDERED: Sod Chloride 0.9% Inj 1,000 ML IV.CONT SCH (12:45)
[2018-01-24] MEDS ORDERED: Epoetin Alfa Inj 2,000 UNIT/ML Vial SQ SCH (12:45)
[2018-01-24] MEDS ORDERED: Dextrose 50% in Water 50 ML Vial IV.PUSH PRN (12:48)
[2018-01-24] MEDS: Heparin - SQ 10,000 UNITS/ML Vial SQ SCH ×2 (13:56→22:45)
--- NOTE | 2018-01-24 15:39 | CT ---
EXAM DATE: 01/24/2018 2:59 PM EDT AGE/SEX: 77 years / Male INDICATIONS: Urinary tract infection. CLINICAL DATA: This is the patient's initial encounter. Patient reports that signs and symptoms have been present for 1 day and indicates a pain score of Nonresponsive. MEDICAL/SURGICAL HISTORY: Cardiovascular disease. Chronic obstructive pulmonary disease. Rainer estive heart failure. GERD, Sepsis, Diabetes. None. RADIATION DOSE: 33.28 CTDI (mGy) COMPARISON: No prior exams available for comparison. TECHNIQUE: Multiple contiguous axial images were obtained through the abdomen. Images were obtained using multiple row detector helical technique. Using automated exposure control and adjustment of the mA and/or kV according to patient size, radiation dose was kept as low as reasonably achievable to o btain optimal diagnostic quality images. DICOM format image data is available electronically for rev iew and comparison. FINDINGS: Abdomen CT: The liver, spleen, pancreas, adrenals are unremarkable. There are cystic areas in the region of the r enal pelvis bilaterally probable large parapelvic cysts, however not adequately characterized without intravenous contrast. The ureters aren't dilated down into the level of the bladder bilaterally wors e on the left and there are gas bubbles inside the bladder. There is no evidence for any stones in th e kidneys or the course of the ureters on either side. Hydronephrosis is difficult to exclude in the kidneys. The patient's prior ultrasound from November 2017 demonstrated moderate hydronephrosis bilaterall y. There is no evidence for any appreciable pathological adenopathy, free fluid, or bowel obstruction . Hiatal hernia is seen. There are old healed rib fractures bilaterally. Soft tissue density is pres ent which projects towards the left side of the descending aorta adjacent to extensive calcifications measures 2.7 x 1.6 cm in AP and transverse diameters. This finding was not present on the prior exam ination and it is uncertain as to whether represents perforation of the aorta with slight contain hem orrhage or possibly hemorrhage into adventitia versus pathological mass or adenopathy. Previously see n lung nodules in both lung bases are no longer seen. Pelvic CT: There is no evidence for mass, abscess formation, or any significant adenopathy within the pelvis. Th e prostate gland measures4.4 x 6.2 cm in AP and transverse diameters inhomogeneous in appearance and nonspecific. There is moderate amount of stool in the colon. CONCLUSION: 1. There is hydronephrosis in both kidneys with hydroureter without definite stones not significantl y changed since the prior examination and there are gas filled inside the bladder present on the prio r examination of uncertain etiology. If the patient has not had instrumentation, possibility of infec tious process or colovesical fistula is not excluded. 2. There is soft tissue density adjacent to descending aorta which is densely calcified not present on the prior exam. It could potentially be mass or adenopathy, however possibility of contained hemor rhage at this site should be entertained and not adequately characterized. May consider further ming cterization with CT angiogram of aorta. Electronically signed by: Jenise Castaneda MD 01/24/2018 3:38 PM EDT
--- NOTE | 2018-01-24 16:11 | P.CONNP ---
History of Present Illness Service: Nephrology Reason for Consult: Acute on chronic kidney disease Primary Care Provider: UNKNOWN History of Present Illness: Mr. Rosenberg has underlying stage IV CKD, baseline creatinine around 2.8 to 3. He was admitted in December for cystitis, treated with Zosyn. Culture was positive for Pseudomonas. Patient has chronic indwelling Yang catheter, that needed to be replaced every month. Patient has been admitted with acute worsening of his renal function. Also there is history of altered mental status. UA is suggestive of UTI. Review of Systems unobtainable due to mental condition Ears, Nose, Mouth, and Throat: Reports headache(s) Genitourinary: Denies blood in urine Psychiatric: Denies irritability, Denies seeing things others do not see [facility] - History History Provided By: 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, Extension Associate / EMT - Medical History Medical History: Medical History (Last Updated 01/24/18 @ 09:19 by Cathie Breen) Afib Anemia BPH (benign prostatic hyperplasia) CHF (congestive heart failure) CKD (chronic kidney disease) COPD (chronic obstructive pulmonary disease) Dementia Depression Diabetes GERD (gastroesophageal reflux disease) Gout HTN (hypertension) Hyperlipemia MRSA (methicillin resistant Staphylococcus aureus) Pneumonia Sepsis UTI (urinary tract infection) - Tobacco History Smoking Status: Unknown if ever smoked - Alcohol History How Often Do You Have a Drink Containing Alcohol: Unable to Obtain - Substance Use History Substance History: Unable to Obtain - Travel History Recent Travel in the [place] Within the Last 8 Weeks: No Recent Travel Out of the Country Within the Last 8 Weeks: No - Immunization History Tetanus Immunization: Unable to Assess Hx Influenza Vaccine This Season: No Medications and Allergies Active Medications: Active Medications Al Hydroxide/Mg Hydroxide (Milk Of Bryan Granda) 30 ml PO Q12H PRN PRN Reason: Mild Constipation Albuterol (Duoneb Neb (Prn)) 1 ampul NEB Q4HR NEB PRN PRN Reason: Shortness Of Breath Bisacodyl (Dulcolax Supp) 10 mg RECTAL DAILY PRN PRN Reason: SEVERE CONSITIPATION Dextrose (D50w Vial) 50 ml IV.PUSH UNSCH PRN PRN Reason: PER HYPOGLYCEMIA PROTOCOL Epoetin Kayleen (Epogen Inj) 2,000 unit SQ WEEKLY RITESH Glucagon (Glucagon Inj) 1 mg OTHER PRN PRN PRN Reason: for Hypoglycemia Protocol Heparin Sodium (Porcine) (Heparin Inj) 5,000 units SQ Q8HR RITESH Last Admin: 01/24/18 13:56 Dose: 5,000 units Hydrocortisone Acetate (Hydrocortisone 1% Cream) 1 applicatio TOPICAL Q6HR PRN PRN Reason: Itching Sodium Chloride (Ns Inj) 1,000 mls @ 150 mls/hr IV.CONT .Q6H40M [facility] Last Admin: 01/24/18 13:56 Dose: 150 mls/hr Imipenem/Cilastatin Sodium 250 (mg/ Sodium Chloride) 100 mls @ 200 mls/hr IV.SIG Q12H [facility] Insulin Aspart (Novolog Insulin Correctional Sugar Inj) 0 unit SQ ACHS RITESH; Protocol Lactulose (Lactulose Liq) 30 ml PO DAILY PRN PRN Reason: SEVERE CONSITIPATION Ondansetron HCl (Zofran Odt) 4 mg SL Q6H PRN PRN Reason: NAUSEA OR VOMITING Senna/Docusate Sodium (Demetria-Colace) 1 tab PO BID PRN PRN Reason: CONSTIPATION Sennosides (Senokot) 17.2 mg PO Q12H PRN PRN Reason: Moderate Constipation Sodium Chloride (Ns Flush) 2 ml IV.FLUSH PRN PRN PRN Reason: FLUSH AFTER USING IV ACCESS Allergies Allergy/AdvReac Type Severity Reaction Status Date / Time cephalexin Allergy Unknown Hives Verified 01/24/18 11:42 Influenza Virus Vaccines Allergy Unknown Hives Verified 01/24/18 11:42 levofloxacin Allergy Unknown Hives Verified 01/24/18 11:42 moxifloxacin Allergy Unknown Hives Verified 01/24/18 11:42 Home Medications Medication Instructions Recorded Confirmed Type acetaminophen [Tylenol] 650 mg PO Q8HR PRN 01/24/18 01/24/18 History allopurinol 100 mg PO DAILY 01/24/18 01/24/18 History amlodipine 5 mg PO DAILY 01/24/18 01/24/18 History ampicillin 500 mg PO TID 01/24/18 01/24/18 History atorvastatin [Lipitor] 40 mg PO HS 01/24/18 01/24/18 History baclofen 10 mg PO TID 01/24/18 01/24/18 History calcium carbonate-vitamin D3 1 tab PO BID 01/24/18 01/24/18 History [Calcium 600 + D(3)] clopidogrel [Plavix] 75 mg PO DAILY 01/24/18 01/24/18 History docusate sodium [Colace] 100 mg PO DAILY 01/24/18 01/24/18 History duloxetine [Cymbalta] 40 mg PO DAILY 01/24/18 01/24/18 History epoetin kayleen [Epogen] 2,000 unit SUB-Q WEEKLY 01/24/18 01/24/18 History ferrous sulfate 325 mg PO TID 01/24/18 01/24/18 History fluticasone-vilanterol [Breo 1 inh INHALATION DAILY 01/24/18 01/24/18 History Ellipta] gabapentin 100 mg PO DAILY 01/24/18 01/24/18 History glucagon (human recombinant) 1 mg IM Q10M PRN 01/24/18 01/24/18 History [Glucagon Emergency Kit (human)] hydrocodone-acetaminophen [[place]] 1 tab PO Q4H PRN 01/24/18 01/24/18 History hydrocortisone 1 applic TOPICAL Q6HR PRN 01/24/18 01/24/18 History insulin aspart U-100 [Novolog 1 unit SUB-Q QAM 01/24/18 01/24/18 History Flexpen U-100 Insulin] ipratropium-albuterol 3 ml INHALATION Q4HR PRN 01/24/18 01/24/18 History magnesium hydroxide [Milk of 30 ml PO DAILY PRN 01/24/18 01/24/18 History Magnesia] multivitamin with minerals 1 tab PO DAILY 01/24/18 01/24/18 History omeprazole 20 mg PO DAILY 01/24/18 01/24/18 History ondansetron HCl [Zofran] 4 mg PO Q8HR PRN 01/24/18 01/24/18 History prochlorperazine maleate 5 mg PO Q8HR PRN 01/24/18 01/24/18 History [Compazine] sodium phosphates [Fleet Enema] 118 ml AK DAILY PRN 01/24/18 01/24/18 History tamsulosin 0.4 mg PO HS 01/24/18 01/24/18 History Exam Vital signs: Vital Signs 01/24/18 09:13 01/24/18 09:26 01/24/18 10:11 Temperature 99.5 F Pulse Rate 85 82 Respiratory Rate 12 12 Blood Pressure 102/55 L 95/47 L Pulse Oximetry 5 L 94 L 98 01/24/18 10:22 01/24/18 10:47 01/24/18 11:45 Temperature 98.7 F Pulse Rate 84 87 Respiratory Rate 18 15 Blood Pressure 98/61 L 120/57 L Pulse Oximetry 100 100 94 L 01/24/18 12:00 Temperature Pulse Rate 77 Respiratory Rate 15 Blood Pressure 127/57 L Pulse Oximetry 100 Intake & Output 01/23/18 01/24/18 01/24/18 18:59 06:59 18:59 Intake Total 100 / 100 Balance 100 / 100 Weight 113.398 kg Intake: IV 100 / 100 Primaxin Inj 500 MG In NS Inj 100 / 100 100 ML @ 200 mls/hr IV.SIG ONCE STA Rx#:[id number] - Constitutional no acute distress, chronically ill appearing Comments: poorly responsive. - Routine HEENT Exam Head: Present: normocephalic, atraumatic Eye: Present: EOMI ENT: Present: mucous membranes dry Comments: facial asymmetry - Routine Neck Exam Absent: JVD, carotid bruit, lymphadenopathy, thyromegaly - Routine Chest/Breast/Axilla Exam Axillae: Absent: lymphadenopathy - Routine Respiratory Exam Present: CTA bilaterally - Routine Cardiovascular Exam Present: S1, S2 - Routine Abdominal Exam Present: soft. Absent: distended, firm - Routine Skin Exam Present: intact - Routine Neurological Exam altered mental status, Results - Lab Results 01/25/18 06:54 01/25/18 06:54 Most recent lab results ABG pH 7.33 (7.380-7.420) L 01/24/18 09:42 ABG pCO2 45 mmHg (38-42) H 01/24/18 09:42 ABG pO2 166 mmHg (61-120) H 01/24/18 09:42 ABG HCO3 23 mmol/L (22-26) 01/24/18 09:42 Calcium 8.2 mg/dL (8.5-10.1) L 01/24/18 10:05 Assessment and Plan - Assessment (1) Acute kidney injury superimposed on chronic kidney disease Code(s): N17.9 - Acute kidney failure, unspecified; N18.9 - Chronic kidney disease, unspecified Status: Acute Plan: Poor underlying renal status. Has baseline stage IV CKD. SHAHLA could be secondary to intravascular volume depletion, pre-renal azotemia, could have progressed to ATN due to hypoperfusion and sepsis. Continue IVF for the time being. If no improvement in renal function, he will need dialysis. Avoid nephrotoxins. Treat underlying infection. Renally dose medications. (2) Altered mental status Code(s): R41.82 - Altered mental status, unspecified Status: Acute Plan: Could be due to renal failure, sepsis, dehydration. Metabolic encephalopathy. Supportive care, monitor for improvement. Treat underlying conditions. (3) Urinary tract infection associated with indwelling urethral catheter Code(s): T83.511A - Infection and inflammatory reaction due to indwelling urethral catheter, initial encounter; N39.0 - Urinary tract infection, site not specified Status: Acute Plan: Recommend to replace Yang catheter. Antibiotic per primary team. (4) Hypertension Code(s): I10 - Essential (primary) hypertension Status: Acute Plan: BP is low to low normal. Suspend antihypertensives. (5) Diabetes Code(s): E11.9 - Type 2 diabetes mellitus without complications Status: Acute Plan: Insulin coverage, to maintain blood glucose between 140 and 180. - Attending Attestation Thanks for the consult. We will follow. (2) Altered mental status Qualifiers: Altered mental status type: delirium Qualified Code(s): R41.0 - Disorientation, unspecified (3) Urinary tract infection associated with indwelling urethral catheter Qualifiers: Encounter type: initial encounter Qualified Code(s): T83.511A - Infection and inflammatory reaction due to indwelling urethral catheter, initial encounter ; N39.0 - Urinary tract infection, site not specified
--- NOTE | 2018-01-24 18:53 | ECG ---
Date Performed: 01/24/2018 Time Performed: 09:14:53 PTAGE: 77 years EKG: Sinus rhythm RIGHT BUNDLE BRANCH BLOCK POSSIBLE SEPTAL MYOCARDIAL INFARCTION ABNORMAL ECG Since PREVIOUS TRACING , no significant change noted PREVIOUS TRACIN11/22/2017 19.37 DOCTOR: Michelle Reese Interpretating Date/Time 01/24/2018 18:51:57
[2018-01-25] MEDS: Insulin NovoLOG Aspart Correctional Sugar Inj SQ SCH ×5 (00:01→23:33)
[2018-01-25] MEDS: Heparin - SQ 10,000 UNITS/ML Vial SQ SCH ×3 (06:42→23:25)
[2018-01-25 07:43] LABS: Baso % (Auto) 0.4 % (0.0-2.0); Eos # (Auto) 0.5 th/mm3 (0.0-0.4); Hematocrit 30.2 % (39.0-51.0); Hemoglobin 9.9 gm/dL (13.0-17.0); Lymph # (Auto) 0.4 th/mm3 (1.0-4.8); Lymph % (Auto) 4.5 % (9.0-44.0); Mean Corpuscular HGB Conc 32.8 % (32.0-36.0); Mean Corpuscular Hemoglobin 28.2 pg (27.0-34.0); Mean Corpuscular Volume 85.9 fL (80.0-100.0); Mean Platelet Volume 6.1 fL (7.0-11.0); Mono # (Auto) 0.5 th/mm3 (0.0-0.9); Mono % (Auto) 5.4 % (0.0-8.0); Neut # (Auto) 8.1 th/mm3 (1.8-7.7); Neut % (Auto) 84.7 % (16.0-70.0); Platelet Count 255 th/mm3 (150-450); Red Blood Count 3.51 mil/mm3 (4.50-5.90); Red Cell Distribution Width 15.9 % (11.6-17.2); White Blood Count 9.6 th/mm3 (4.0-11.0)
[2018-01-25 08:02] LABS: Albumin 1.9 g/dL (3.4-5.0); Anion Gap 11 meq/L (5-15); Aspartate Aminotransferase 13 U/L (15-37); Blood Urea Nitrogen 61 mg/dL (7-18); Calcium 8.1 mg/dL (8.5-10.1); Carbon Dioxide 22.8 meq/L (21.0-32.0); Chloride 109 meq/L (98-107); Glomerular Filtration Rate 11 mL/min (>89); Glucose,Random 83 mg/dL (74-106); Potassium 3.8 meq/L (3.5-5.1); Sodium 143 meq/L (136-145)
[2018-01-25 08:06] LABS: Alanine Aminotransferase 10 U/L (12-78); Alkaline Phosphatase 88 U/L (45-117); Total Protein 6.8 g/dL (6.4-8.2)
[2018-01-25] MEDS: Sod Chloride 0.9% Inj 1,000 ML IV.CONT SCH (08:54)
--- NOTE | 2018-01-25 09:02 | P.HPFP ---
History of Present Illness Primary Care Physician: UNKNOWN History of Present Illness: This patient is a 77-year-old male with history of A. fib on Plavix, CHF, CKD, COPD, dementia, diabetes, and hypertension with an indwelling Yang catheter who was brought in via EMS from his senior living due to altered mental status. This patient was also recently admitted in December of 2017 for cystitis that was positive for Pseudomonas and treated with Zosyn. At time of admission interview patient was minimally responsive however he is more awake today and oriented x 3. Per ED note, senior living describes this gentleman as normally alert and oriented 3, but was found to be unresponsive by senior living staff. There is no prior knowledge of any previous infections or changes in mental status recently. In the ED he was found to be stable with a temperature of 99.5, pulse rate of 85, a respiratory rate of 12, and a blood pressure 102/55, as well as satting 98% on 4 L nasal cannula. Head CT and chest x-ray showed no acute processes. Urinalysis was done in the ED, which was positive for occult blood in the urine, large leukocyte esterase, and high urine protein and a white blood cell count of 11.3. He currently does not meet sepsis criteria but will be admitted due to altered mental status in the setting of a urinary tract infection with indwelling urethral catheter, acute kidney injury superimposed on chronic kidney disease. He was started on fluids as he has acute renal injury on a baseline of chronic insufficiency. His creatinine is improved to some degree today but still over 5. However, he is making urine as he has an indwelling catheter. He woke up and answered some questions today but reported erroneously that he is currently on dialysis. He can answer simple straightforward questions at this time which is a definite improvement over his admission. he may be a bit uremic still but hopefully he will continue to improve Of note: CODE STATUS, past medical history, surgical history, medications, allergies, and further history could not be elicited from patient due to unresponsiveness. - Diagnosis (1) Urinary tract infection associated with indwelling urethral catheter (2) Altered mental status (3) Acute kidney injury superimposed on chronic kidney disease (4) Hypertension (5) Diabetes (6) Gout (7) Depression (8) Nutrition, metabolism, and development symptoms Inpatient Certification: I certify that the inpatient services were ordered in accordance with Medicare regulations governing the order. This includes certification that hospital inpatient services are reasonable and necessary and in the case of services not specified as inpatient-only under 42 CFR 419.22(n), that they are appropriately provided as inpatient services in accordance to with the 2-midnight benchmark under 43 CFR 412.3(e) Estimated Total Length of Stay (Days): 4 Plans for Post Hospital Care: Not yet determined Review of Systems see H&P from yesterday. today he is not 100% clear and denied any problems or pain PMFSH - History History 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, 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, Market Risk Specialist / EMT - Medical History Medical History: Medical History (Last Updated 01/24/18 @ 09:19 by Cathie Breen) Afib Anemia BPH (benign prostatic hyperplasia) CHF (congestive heart failure) CKD (chronic kidney disease) COPD (chronic obstructive pulmonary disease) Dementia Depression Diabetes GERD (gastroesophageal reflux disease) Gout HTN (hypertension) Hyperlipemia MRSA (methicillin resistant Staphylococcus aureus) Pneumonia Sepsis UTI (urinary tract infection) - Tobacco History Smoking Status: Unknown if ever smoked - Alcohol History How Often Do You Have a Drink Containing Alcohol: Unable to Obtain - Substance Use History Substance History: Unable to Obtain - Travel History Recent Travel in the [place] Within the Last 8 Weeks: No Recent Travel Out of the Country Within the Last 8 Weeks: No - Immunization History Tetanus Immunization: Unable to Assess Hx Influenza Vaccine This Season: No Medications and Allergies Active Medications: Active Medications Al Hydroxide/Mg Hydroxide (Milk Of Bryan Granda) 30 ml PO Q12H PRN PRN Reason: Mild Constipation Albuterol (Duoneb Neb (Prn)) 1 ampul NEB Q4HR NEB PRN PRN Reason: Shortness Of Breath Bisacodyl (Dulcolax Supp) 10 mg RECTAL DAILY PRN PRN Reason: SEVERE CONSITIPATION Dextrose (D50w Vial) 50 ml IV.PUSH UNSCH PRN PRN Reason: PER HYPOGLYCEMIA PROTOCOL Epoetin Kayleen (Epogen Inj) 2,000 unit SQ WEEKLY RITESH Glucagon (Glucagon Inj) 1 mg OTHER PRN PRN PRN Reason: for Hypoglycemia Protocol Heparin Sodium (Porcine) (Heparin Inj) 5,000 units SQ Q8HR RITESH Last Admin: 01/25/18 06:42 Dose: 5,000 units Hydrocortisone Acetate (Hydrocortisone 1% Cream) 1 applicatio TOPICAL Q6HR PRN PRN Reason: Itching Sodium Chloride (Ns Inj) 1,000 mls @ 100 mls/hr IV.CONT .Q10H [facility] Last Admin: 01/25/18 08:54 Dose: 100 mls/hr Meropenem 500 mg/ Sodium (Chloride) 100 mls @ 200 mls/hr IV.SIG Q12H [facility] Insulin Aspart (Novolog Insulin Correctional Sugar Inj) 0 unit SQ ACHS RITESH; Protocol Last Admin: 01/25/18 08:24 Dose: Not Given Lactulose (Lactulose Liq) 30 ml PO DAILY PRN PRN Reason: SEVERE CONSITIPATION Ondansetron HCl (Zofran Odt) 4 mg SL Q6H PRN PRN Reason: NAUSEA OR VOMITING Senna/Docusate Sodium (Demetria-Colace) 1 tab PO BID PRN PRN Reason: CONSTIPATION Sennosides (Senokot) 17.2 mg PO Q12H PRN PRN Reason: Moderate Constipation Sodium Chloride (Ns Flush) 2 ml IV.FLUSH PRN PRN PRN Reason: FLUSH AFTER USING IV ACCESS Allergies Allergy/AdvReac Type Severity Reaction Status Date / Time cephalexin Allergy Unknown Hives Verified 01/24/18 11:42 Influenza Virus Vaccines Allergy Unknown Hives Verified 01/24/18 11:42 levofloxacin Allergy Unknown Hives Verified 01/24/18 11:42 moxifloxacin Allergy Unknown Hives Verified 01/24/18 11:42 Home Medications Medication Instructions Recorded Confirmed Type acetaminophen [Tylenol] 650 mg PO Q8HR PRN 01/24/18 01/24/18 History allopurinol 100 mg PO DAILY 01/24/18 01/24/18 History amlodipine 5 mg PO DAILY 01/24/18 01/24/18 History ampicillin 500 mg PO TID 01/24/18 01/24/18 History atorvastatin [Lipitor] 40 mg PO HS 01/24/18 01/24/18 History baclofen 10 mg PO TID 01/24/18 01/24/18 History calcium carbonate-vitamin D3 1 tab PO BID 01/24/18 01/24/18 History [Calcium 600 + D(3)] clopidogrel [Plavix] 75 mg PO DAILY 01/24/18 01/24/18 History docusate sodium [Colace] 100 mg PO DAILY 01/24/18 01/24/18 History duloxetine [Cymbalta] 40 mg PO DAILY 01/24/18 01/24/18 History epoetin kayleen [Epogen] 2,000 unit SUB-Q WEEKLY 01/24/18 01/24/18 History ferrous sulfate 325 mg PO TID 01/24/18 01/24/18 History fluticasone-vilanterol [Breo 1 inh INHALATION DAILY 01/24/18 01/24/18 History Ellipta] gabapentin 100 mg PO DAILY 01/24/18 01/24/18 History glucagon (human recombinant) 1 mg IM Q10M PRN 01/24/18 01/24/18 History [Glucagon Emergency Kit (human)] hydrocodone-acetaminophen [[place]] 1 tab PO Q4H PRN 01/24/18 01/24/18 History hydrocortisone 1 applic TOPICAL Q6HR PRN 01/24/18 01/24/18 History insulin aspart U-100 [Novolog 1 unit SUB-Q QAM 01/24/18 01/24/18 History Flexpen U-100 Insulin] ipratropium-albuterol 3 ml INHALATION Q4HR PRN 01/24/18 01/24/18 History magnesium hydroxide [Milk of 30 ml PO DAILY PRN 01/24/18 01/24/18 History Magnesia] multivitamin with minerals 1 tab PO DAILY 01/24/18 01/24/18 History omeprazole 20 mg PO DAILY 01/24/18 01/24/18 History ondansetron HCl [Zofran] 4 mg PO Q8HR PRN 01/24/18 01/24/18 History prochlorperazine maleate 5 mg PO Q8HR PRN 01/24/18 01/24/18 History [Compazine] sodium phosphates [Fleet Enema] 118 ml PA DAILY PRN 01/24/18 01/24/18 History tamsulosin 0.4 mg PO HS 01/24/18 01/24/18 History Exam Vital signs: Vital Signs 01/24/18 09:13 01/24/18 09:26 01/24/18 10:11 Temperature 99.5 F Pulse Rate 85 82 Respiratory Rate 12 12 Blood Pressure 102/55 L 95/47 L Pulse Oximetry 5 L 94 L 98 01/24/18 10:22 01/24/18 10:47 01/24/18 11:45 Temperature 98.7 F Pulse Rate 84 87 Respiratory Rate 18 15 Blood Pressure 98/61 L 120/57 L Pulse Oximetry 100 100 94 L 01/24/18 12:00 01/24/18 16:00 01/24/18 20:00 Temperature 97.3 F L 98.2 F Pulse Rate 77 78 66 Respiratory Rate 15 14 16 Blood Pressure 127/57 L 130/82 128/58 L Pulse Oximetry 100 97 99 01/25/18 00:00 01/25/18 04:00 Temperature 98.1 F 98 F Pulse Rate 68 72 Respiratory Rate 20 16 Blood Pressure 128/60 131/75 Pulse Oximetry 100 100 Intake & Output 01/24/18 01/25/18 01/25/18 18:59 06:59 18:59 Intake Total 100 / 100 100 / 100 Output Total 1200 / 1200 Balance 100 / 100 -1100 / -1100 Weight 113.398 kg 114 kg Intake: IV 100 / 100 100 / 100 Primaxin Inj 250 MG In NS Inj 100 / 100 100 ML @ 200 mls/hr IV.SIG Q12H RITESH Rx#:[id number] Primaxin Inj 500 MG In NS Inj 100 / 100 100 ML @ 200 mls/hr IV.SIG ONCE STA Rx#:[id number] Output: Urine Amount (Catheter) 1200 / 1200 Indwelling Urethral Catheter 1200 / 1200 Other: # Bowel Movements 1 - Constitutional no acute distress, obese, cooperative, somnolent - Routine HEENT Exam Head: Present: normocephalic, atraumatic. Absent: cushingoid faces, abrasion, laceration, facial swelling Eye: Present: EOMI. Absent: conjunctival icterus, scleral injection, periorbital ecchymosis, periorbital swelling ENT: Present: mucous membranes dry, external ear normal. Absent: septal deviation - Routine Neck Exam Present: trachea midline. Absent: swelling - Routine Chest/Breast/Axilla Exam Chest wall: Absent: tenderness - Routine Respiratory Exam Present: CTA bilaterally, rales (basilar on right and about care home up on left) . Absent: accessory muscle use, patient mechanically ventilated, decreased breath sounds, respiratory distress, wheezes, distant breath sounds, diminished air movement - Routine Cardiovascular Exam Present: RRR. Absent: gallop, rubs, bradycardia, tachycardia - Routine Abdominal Exam Present: soft. Absent: tenderness, distended, rebound, guarding - Routine Extremities Exam Absent: cyanosis, clubbing, edema - Routine Skin Exam Present: intact. Absent: cyanosis, erythema, petechiae, urticaria - Routine Neurological Exam Present: alert, oriented X3, altered mental status, moving all extremities, normal tone, hearing grossly intact (seems somewhat deaf). Absent: sensory deficit, motor deficit, nystagmus, fasciculations Results - Labs Result diagrams: 01/25/18 06:54 01/25/18 06:54 Abnormal lab results 01/24/18 01/24/18 01/24/18 Range/Units 09:42 10:05 10:05 WBC 11.3 H (4.0-11.0) th/mm3 RBC 3.73 L (4.50-5.90) mil/mm3 Hgb 10.3 L (13.0-17.0) gm/dL Hct 31.9 L (39.0-51.0) % MPV 6.2 L (7.0-11.0) fL Neut % (Auto) 84.3 H (16.0-70.0) % Lymph % (Auto) 6.3 L (9.0-44.0) % Eos % (Auto) (0.0-4.0) % Neut # (Auto) 9.5 H (1.8-7.7) th/mm3 Lymph # (Auto) 0.7 L (1.0-4.8) th/mm3 Eos # (Auto) (0.0-0.4) th/mm3 APTT 37.2 H (24.3-30.1) sec ABG pH 7.33 L (7.380-7.420) ABG pCO2 45 H (38-42) mmHg ABG pO2 166 H (61-120) mmHg ABG Base Excess -2.1 L (-2-2) mmol/L Hemoglobin 11.1 L (12.0-16.0) G/DL Sodium (136-145) meq/L Chloride (98-107) meq/L BUN (7-18) mg/dL Creatinine (0.60-1.30) mg/dL Estimated GFR (>89) mL/min POC Glucose (68-110) mg/dl Calcium (8.5-10.1) mg/dL AST (15-37) U/L ALT (12-78) U/L Ammonia (11-32) mcmol/L Troponin I (0.02-0.05) ng/mL Albumin (3.4-5.0) g/dL Urine Clarity (Clear) Urine Protein (Neg-Trace) mg/dL Urine Occult Blood (Negative) Ur Leukocyte Esterase (Negative) Urine RBC (0-3) /hpf Urine WBC Clumps (None) Urine Mucus (Occasional) /lpf 01/24/18 01/24/18 01/24/18 Range/Units 10:05 10:05 10:37 WBC (4.0-11.0) th/mm3 RBC (4.50-5.90) mil/mm3 Hgb (13.0-17.0) gm/dL Hct (39.0-51.0) % MPV (7.0-11.0) fL Neut % (Auto) (16.0-70.0) % Lymph % (Auto) (9.0-44.0) % Eos % (Auto) (0.0-4.0) % Neut # (Auto) (1.8-7.7) th/mm3 Lymph # (Auto) (1.0-4.8) th/mm3 Eos # (Auto) (0.0-0.4) th/mm3 APTT (24.3-30.1) sec ABG pH (7.380-7.420) ABG pCO2 (38-42) mmHg ABG pO2 (61-120) mmHg ABG Base Excess (-2-2) mmol/L Hemoglobin (12.0-16.0) G/DL Sodium 135 L (136-145) meq/L Chloride (98-107) meq/L BUN 66 H (7-18) mg/dL Creatinine 5.45 H (0.60-1.30) mg/dL Estimated GFR 10 L (>89) mL/min POC Glucose (68-110) mg/dl Calcium 8.2 L (8.5-10.1) mg/dL AST (15-37) U/L ALT (12-78) U/L Ammonia 36 H (11-32) mcmol/L Troponin I Less than 0.02 L (0.02-0.05) ng/mL Albumin 2.2 L (3.4-5.0) g/dL Urine Clarity Turbid H (Clear) Urine Protein 100 H (Neg-Trace) mg/dL Urine Occult Blood Large H (Negative) Ur Leukocyte Esterase Large H (Negative) Urine RBC 74 H (0-3) /hpf Urine WBC Clumps Many H (None) Urine Mucus Few H (Occasional) /lpf 01/24/18 01/24/18 01/25/18 Range/Units 17:41 21:34 06:54 WBC (4.0-11.0) th/mm3 RBC 3.51 L (4.50-5.90) mil/mm3 Hgb 9.9 L (13.0-17.0) gm/dL Hct 30.2 L (39.0-51.0) % MPV 6.1 L (7.0-11.0) fL Neut % (Auto) 84.7 H (16.0-70.0) % Lymph % (Auto) 4.5 L (9.0-44.0) % Eos % (Auto) 5.0 H (0.0-4.0) % Neut # (Auto) 8.1 H (1.8-7.7) th/mm3 Lymph # (Auto) 0.4 L (1.0-4.8) th/mm3 Eos # (Auto) 0.5 H (0.0-0.4) th/mm3 APTT (24.3-30.1) sec ABG pH (7.380-7.420) ABG pCO2 (38-42) mmHg ABG pO2 (61-120) mmHg ABG Base Excess (-2-2) mmol/L Hemoglobin (12.0-16.0) G/DL Sodium (136-145) meq/L Chloride (98-107) meq/L BUN (7-18) mg/dL Creatinine (0.60-1.30) mg/dL Estimated GFR (>89) mL/min POC Glucose 126 H 135 H (68-110) mg/dl Calcium (8.5-10.1) mg/dL AST (15-37) U/L ALT (12-78) U/L Ammonia (11-32) mcmol/L Troponin I (0.02-0.05) ng/mL Albumin (3.4-5.0) g/dL Urine Clarity (Clear) Urine Protein (Neg-Trace) mg/dL Urine Occult Blood (Negative) Ur Leukocyte Esterase (Negative) Urine RBC (0-3) /hpf Urine WBC Clumps (None) Urine Mucus (Occasional) /lpf 01/25/18 Range/Units 06:54 WBC (4.0-11.0) th/mm3 RBC (4.50-5.90) mil/mm3 Hgb (13.0-17.0) gm/dL Hct (39.0-51.0) % MPV (7.0-11.0) fL Neut % (Auto) (16.0-70.0) % Lymph % (Auto) (9.0-44.0) % Eos % (Auto) (0.0-4.0) % Neut # (Auto) (1.8-7.7) th/mm3 Lymph # (Auto) (1.0-4.8) th/mm3 Eos # (Auto) (0.0-0.4) th/mm3 APTT (24.3-30.1) sec ABG pH (7.380-7.420) ABG pCO2 (38-42) mmHg ABG pO2 (61-120) mmHg ABG Base Excess (-2-2) mmol/L Hemoglobin (12.0-16.0) G/DL Sodium (136-145) meq/L Chloride 109 H (98-107) meq/L BUN 61 H (7-18) mg/dL Creatinine 5.09 H (0.60-1.30) mg/dL Estimated GFR 11 L (>89) mL/min POC Glucose (68-110) mg/dl Calcium 8.1 L (8.5-10.1) mg/dL AST 13 L (15-37) U/L ALT 10 L (12-78) U/L Ammonia (11-32) mcmol/L Troponin I (0.02-0.05) ng/mL Albumin 1.9 L (3.4-5.0) g/dL Urine Clarity (Clear) Urine Protein (Neg-Trace) mg/dL Urine Occult Blood (Negative) Ur Leukocyte Esterase (Negative) Urine RBC (0-3) /hpf Urine WBC Clumps (None) Urine Mucus (Occasional) /lpf Short CBC 01/24/18 01/25/18 Range/Units 10:05 06:54 WBC 11.3 H 9.6 (4.0-11.0) th/mm3 Hgb 10.3 L 9.9 L (13.0-17.0) gm/dL Hct 31.9 L 30.2 L (39.0-51.0) % Plt Count 320 255 (150-450) th/mm3 BMP 01/24/18 01/25/18 10:05 06:54 Sodium 135 L 143 Potassium 4.2 3.8 Chloride 103 109 H Carbon Dioxide 22.7 22.8 BUN 66 H 61 H Creatinine 5.45 H 5.09 H Calcium 8.2 L 8.1 L Cardiac Enzymes 01/24/18 01/24/18 Range/Units 10:05 10:05 Total Creatine Kinase 51 Cancelled (39-308) U/L Troponin I Less than 0.02 L (0.02-0.05) ng/mL Liver Function 01/24/18 01/25/18 Range/Units 10:05 06:54 Total Bilirubin 0.3 0.3 (0.2-1.0) mg/dL AST 30 13 L (15-37) U/L ALT 14 10 L (12-78) U/L Alkaline Phosphatase 92 88 (45-117) U/L Albumin 2.2 L 1.9 L (3.4-5.0) g/dL Urine 01/24/18 Range/Units 10:37 Urine Color [place] (Yellw/Straw) Urine Clarity Turbid H (Clear) Urine pH 5.0 (5.0-8.5) Ur Specific [place] 1.012 (1.002-1.035) Urine Protein 100 H (Neg-Trace) mg/dL Urine Glucose (UA) Negative (Negative) mg/dL - Imaging Impressions Abdomen/Pelvis CT 01/24/18 00:00 CONCLUSION: 1. There is hydronephrosis in both kidneys with hydroureter without definite stones not significantly changed since the prior examination and there are gas filled inside the bladder present on the prior examination of uncertain etiology. If the patient has not had instrumentation, possibility of infectious process or colovesical fistula is not excluded. 2. There is soft tissue density adjacent to descending aorta which is densely calcified not present on the prior exam. It could potentially be mass or adenopathy, however possibility of contained hemorrhage at this site should be entertained and not adequately characterized. May consider further characterization with CT angiogram of aorta. Chest X-Ray 01/24/18 09:42 CONCLUSION: Underinflated examination with atelectasis at the lung bases. Otherwise, stable examination. Head CT 01/24/18 09:42 CONCLUSION: 1. Stable noncontrast head CT. No acute intracranial abnormality is identified. 2. Stable chronic findings include generalized atrophy and mild periventricular white matter low-attenuation characteristic of chronic microvascular ischemia. Caprini VTE Risk Assessment Caprini VTE Risk Assessment: Moderate/High Risk (score >= 2) Caprini Risk Assessment Model: Point Value = 1 Point Value = 2 Point Value = 3 Point Value = 5 Age 41-60 Minor surgery BMI > 25 kg/m2 Swollen legs Varicose veins or History of unexplained or recurrent spontaneous Oral contraceptives or hormone replacement Sepsis (< 1 month) Serious lung disease, including pneumonia (< 1 month) Abnormal pulmonary function Acute myocardial infarction Congestive heart failure (< 1 month) History of inflammatory bowel disease Medical patient at bed rest Age 61-74 Arthroscopic surgery Major open surgery (> 45 min) Laparoscopic surgery (> 45 min) Malignancy Confined to bed (> 72 hours) Immobilizing plaster cast Central venous access Age >= 75 History of VTE Family history of VTE Factor V Leiden Prothrombin [id number] Lupus anticoagulant Anticardiolipin antibodies Elevated serum homocysteine Heparin-induced thrombocytopenia Other congenital or acquired thrombophilia Stroke (< 1 month) Elective arthroplasty Hip, pelvis, or leg fracture Acute spinal cord injury (< 1 month) Prophylaxis Regimen: Total Risk Factor Score Risk Level Prophylaxis Regimen 0-1 Low Early ambulation 2 Moderate Order ONE of the following: *Sequential Compression Device (SCD) *Heparin 5000 units SQ BID 3-4 Higher Order ONE of the following medications: *Heparin 5000 units SQ TID *Enoxaparin/Lovenox 40 mg SQ daily (WT < 150 kg, CrCl > 30 mL/min) *Enoxaparin/Lovenox 30 mg SQ daily (WT < 150 kg, CrCl > 10-29 mL/min) *Enoxaparin/Lovenox 30 mg SQ BID (WT < 150 kg, CrCl > 30 mL/min) AND/OR *Sequential Compression Device (SCD) 5 or more Highest Order ONE of the following medications: *Heparin 5000 units SQ TID (Preferred with Epidurals) *Enoxaparin/Lovenox 40 mg SQ daily (WT < 150 kg, CrCl > 30 mL/min) *Enoxaparin/Lovenox 30 mg SQ daily (WT < 150 kg, CrCl > 10-29 mL/min) *Enoxaparin/Lovenox 30 mg SQ BID (WT < 150 kg, CrCl > 30 mL/min) AND *Sequential Compression Device (SCD) Assessment and Plan - Assessment (1) Urinary tract infection associated with indwelling urethral catheter Code(s): T83.511A - Infection and inflammatory reaction due to indwelling urethral catheter, initial encounter; N39.0 - Urinary tract infection, site not specified Status: Acute Plan: This patient was admitted for urinary tract infection in the setting of altered mental status and indwelling Yang catheter. He was also found to have an acute kidney injury superimposed on stage IV chronic kidney disease. On examination his Yang catheter contained a mixture what appears to be blood mixed with urine. In the ED urinalysis was positive for high-protein, large occult blood, and large amounts of leukocyte esterase and urine was sent for culture. -Removed and replaced current Yang catheter -Continued imipenem, stopped as it is not recommended for renal dosing. see orders, changed to meropenem -Monitor CBC -Monitor vitals -Follow-up with urine cultures and sensitivities (2) Altered mental status Code(s): R41.82 - Altered mental status, unspecified Status: Acute Plan: Patient was found to be in altered mental status by senior living caregivers, patient known to be normally alert and oriented 3. On admission patient had a white blood cell count of 11.3 and a suspected urinary tract infection due to urinary leukocyte esterase found on UA. Patient was found to have a BUN of 66 on admission as well as a creatinine of 5.45. Ammonia level slightly increased at 36. Sodium levels at 135 on the low side of normal. H/H at 10.3/31.9. ABG was completed in the ED and blood pH was found to be slightly ascitic at 7.33 with a low range of normal being 7.38. Altered mental status likely due to UTI versus uremia. Nephrology will be consulted regarding necessity of dialysis at this time. -See plan for UTI above he is improved today as he has spontaneous eye opening and answers questions (3) Acute kidney injury superimposed on chronic kidney disease Code(s): N17.9 - Acute kidney failure, unspecified; N18.9 - Chronic kidney disease, unspecified Status: Acute Plan: On admission this patient was found to have an SHAHLA superimposed on chronic kidney disease of unknown stage. From previous admissions this patient has a baseline creatinine of 3 and on admission had a creatinine of 5.45 and BUN of 66. Through previous medical record review it was revealed that in November 2018 this patient had an ultrasound of both kidneys which showed a 2.2 cm cyst on the upper pole of the right kidney, moderate bilateral hydronephrosis with left ureter dilated, small amount of bladder debris, and increased renal echogenicity characteristic of medical renal disease. In the ED patient's UA showed large amounts of occult blood. - Continue IV fluids with normal saline - Avoid any nephrotoxic agents - Hold Plavix due to hematuria - Continue meropenem until urinary cultures return - Nephrology consult appreciated - Follow-up with CT scan of the abdomen without contrast - Monitor BUN/creatinine - Monitor electrolytes replete as necessary following fluid recs per Nephrology. he is not oliguric so he is less likely to get fluid overloaded but will need careful monitoring. he said today he had not been eating or drinking for a few days at the [facility] (4) Hypertension Code(s): I10 - Essential (primary) hypertension Status: Acute Plan: Patient has history of hypertension currently treated with amlodipine. On admission patient had a blood pressure of 102/55. Blood pressure currently controlled. -Hold home blood pressure medications as patient's blood pressure is in the low to low normal range (5) Diabetes Code(s): E11.9 - Type 2 diabetes mellitus without complications Status: Acute Plan: Patient is a known type II diabetic on home NovoLog. -Insulin sliding scale while inpatient (6) Gout Code(s): M10.9 - Gout, unspecified Status: Acute Plan: Patient with a past medical history of gout managed with allopurinol at home. No indication of acute gout attack at this time. -Hold allopurinol resume once taking po as it is preventative. no higher of a dose than 100 mg per day (7) Depression Code(s): F32.9 - Major depressive disorder, single episode, unspecified Status : Acute Plan: According to senior living patient suffers from depression. No previous psychiatric history at this time. -Hold any psychiatric medications until patient is alert, oriented, and arousable and able to be assessed. hopefully he can take po well and be restarted on these dosed renally of course (8) Nutrition, metabolism, and development symptoms Code(s): R63.8 - Other symptoms and signs concerning food and fluid intake Status: Acute Plan: Fluids: Continue hydration with normal saline at 80 mL/h per nephrology Electrolytes: Replete as needed Nutrition: N.p.o. 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
--- NOTE | 2018-01-25 16:33 | P.PNNP ---
Subjective Interval history: Patient confused has urinary tract infection during gram-negative rods and urine Physical Exam Vital signs: Vital Signs 01/24/18 20:00 01/25/18 00:00 01/25/18 04:00 Temperature 98.2 F 98.1 F 98 F Pulse Rate 66 68 72 Respiratory Rate 16 20 16 Blood Pressure 128/58 L 128/60 131/75 Pulse Oximetry 99 100 100 01/25/18 08:00 01/25/18 09:00 01/25/18 12:00 Temperature 97.5 F L 97.5 F L Pulse Rate 67 71 61 Respiratory Rate 15 16 Blood Pressure 138/63 129/63 Pulse Oximetry 100 100 Intake & Output 01/24/18 01/25/18 01/25/18 18:59 06:59 18:59 Intake Total 100 / 100 100 / 100 Output Total 1200 / 1200 650 / 650 Balance 100 / 100 -1100 / -1100 -650 / -650 Weight 113.398 kg 114 kg Intake: IV 100 / 100 100 / 100 Primaxin Inj 250 MG In NS Inj 100 / 100 100 ML @ 200 mls/hr IV.SIG Q12H RITESH Rx#:[id number] Primaxin Inj 500 MG In NS Inj 100 / 100 100 ML @ 200 mls/hr IV.SIG ONCE STA Rx#:[id number] Output: Urine Amount (Catheter) 1200 / 1200 650 / 650 Indwelling Urethral Catheter 1200 / 1200 650 / 650 Other: Date of Last Bowel Movement 01/25/18 # Bowel Movements 1 1 # Incontinent Bowel Movements 1 - Constitutional no acute distress - Routine HEENT Exam Eye: Present: EOMI - Routine Neck Exam Present: supple - Routine Cardiovascular Exam Present: RRR - Routine Abdominal Exam Present: soft, normoactive bowel sounds - Routine Extremities Exam Present: edema (None) - Urinary Catheter Management Indwelling Urethral Catheter Cath placed during this visit: yes Urethral indwelling: Yes Reason for continuing: Chronic Urinary Retention Insertion date: 01/24/18 Insertion time: 10:50 Assessment and Plan - Assessment (1) Acute kidney injury superimposed on chronic kidney disease Code(s): N17.9 - Acute kidney failure, unspecified; N18.9 - Chronic kidney disease, unspecified Status: Acute Plan: Creatinine declined with hydration slightly better continue to hydrate treat urinary tract infection he is on meropenem, history of Pseudomonas infection, follow BMP, follow up with Dr. Bal (2) Urinary tract infection associated with indwelling urethral catheter Code(s): T83.511A - Infection and inflammatory reaction due to indwelling urethral catheter, initial encounter; N39.0 - Urinary tract infection, site not specified Status: Acute Qualifiers: Encounter type: initial encounter Qualified Code(s): T83.511A - Infection and inflammatory reaction due to indwelling urethral catheter, initial encounter ; N39.0 - Urinary tract infection, site not specified (3) Diabetes Code(s): E11.9 - Type 2 diabetes mellitus without complications Status: Acute
[2018-01-26] MEDS: Sod Chloride 0.9% Inj 1,000 ML IV.CONT SCH ×2 (01:26→07:40)
[2018-01-26] MEDS: Insulin NovoLOG Aspart Correctional Sugar Inj SQ SCH ×3 (01:30→22:42)
[2018-01-26] MEDS: Heparin - SQ 10,000 UNITS/ML Vial SQ SCH ×3 (06:27→22:42)
--- NOTE | 2018-01-26 08:41 | P.PNFP ---
Subjective Interval history: Patient was seen at bedside this morning. There were no acute events overnight and reports feeling overall well. Patient did not have his dentures in so communication was somewhat difficult. Patient did mention that he wanted to go back to [facility], it was discussed with him that he currently has a urinary tract infection and that we are treating this and as soon as it is resolved we can discuss him going back home. Patient denies any subjective fevers, chills, shortness of breath, chest pain, nausea, or vomiting. All questions were answered to the patient's satisfaction. <Chaparro Sandoval O - 01/26/18 15:30> Results - Labs Result diagrams: 01/30/18 07:10 01/30/18 07:10 <Mariza Landaverde - 01/30/18 14:59> Abnormal lab results 01/30/18 01/30/18 Range/Units 07:10 07:10 RBC 3.53 L (4.50-5.90) mil/mm3 Hgb 9.9 L (13.0-17.0) gm/dL Hct 30.7 L (39.0-51.0) % MPV 5.9 L (7.0-11.0) fL Chloride 111 H (98-107) meq/L BUN 26 H (7-18) mg/dL Creatinine 2.28 H (0.60-1.30) mg/dL Estimated GFR 28 L (>89) mL/min Random Glucose 73 L (74-106) mg/dL Calcium 8.1 L (8.5-10.1) mg/dL Short CBC 01/30/18 Range/Units 07:10 WBC 5.6 (4.0-11.0) th/mm3 Hgb 9.9 L (13.0-17.0) gm/dL Hct 30.7 L (39.0-51.0) % Plt Count 205 (150-450) th/mm3 BMP 01/30/18 07:10 Sodium 142 Potassium 3.9 Chloride 111 H Carbon Dioxide 23.3 BUN 26 H Creatinine 2.28 H Calcium 8.1 L <Mariza Landaverde - 01/30/18 14:59> Abnormal lab results 01/24/18 01/25/18 01/25/18 Range/Units 10:37 11:48 16:41 POC Glucose 118 H 127 H (68-110) mg/dl Urine Clarity Turbid H (Clear) Urine Protein 100 H (Neg-Trace) mg/dL Urine Occult Blood Large H (Negative) Ur Leukocyte Esterase Large H (Negative) Urine RBC 74 H (0-3) /hpf Urine WBC Clumps Many H (None) Urine Mucus Few H (Occasional) /lpf 01/26/18 Range/Units 08:22 POC Glucose 189 H (68-110) mg/dl Urine Clarity (Clear) Urine Protein (Neg-Trace) mg/dL Urine Occult Blood (Negative) Ur Leukocyte Esterase (Negative) Urine RBC (0-3) /hpf Urine WBC Clumps (None) Urine Mucus (Occasional) /lpf Urine 01/24/18 Range/Units 10:37 Urine Color [place] (Yellw/Straw) Urine Clarity Turbid H (Clear) Urine pH 5.0 (5.0-8.5) Ur Specific [place] 1.012 (1.002-1.035) Urine Protein 100 H (Neg-Trace) mg/dL Urine Glucose (UA) Negative (Negative) mg/dL <Chaparro Sandoval O - 01/26/18 08:41> Physical Exam Vital signs: Vital Signs 01/29/18 16:00 01/29/18 20:00 01/30/18 00:00 Temperature 98 F 97.9 F 97.5 F L Pulse Rate 70 60 64 Respiratory Rate 18 18 18 Blood Pressure 140/66 150/63 H 137/60 Pulse Oximetry 96 98 94 L 01/30/18 04:00 01/30/18 08:46 01/30/18 12:54 Temperature 97.7 F 98.4 F 98.7 F Pulse Rate 65 86 84 Respiratory Rate 18 18 16 Blood Pressure 145/65 H 150/75 H 146/72 H Pulse Oximetry 90 L 93 L 91 L 01/30/18 13:41 Temperature Pulse Rate 73 Respiratory Rate Blood Pressure Pulse Oximetry Intake & Output 01/29/18 01/30/18 01/30/18 18:59 06:59 18:59 Intake Total 100 / 100 1340 / 1340 1000 / 1000 Output Total 500 / 500 800 / 800 1000 / 1000 Balance -400 / -400 540 / 540 0 / 0 Weight 236.7 kg Intake: IV 100 / 100 1100 / 1100 1000 / 1000 1/2 Normal Saline Inj 1,000 ML 1000 / 1000 1000 / 1000 @ 50 mls/hr IV.CONT .Q20H RITESH Rx#:[id number] Azactam Inj 1,000 MG In NS Inj 100 / 100 100 / 100 100 ML @ 200 mls/hr IV.SIG Q12H RITESH Rx#:[id number] Oral 240 / 240 Output: Urine 500 / 500 800 / 800 1000 / 1000 Other: # Voids 3 Date of Last Bowel Movement 01/29/18 # Bowel Movements 1 <Mariza Landaverde M - 01/30/18 14:59> Vital Signs 01/25/18 09:00 01/25/18 12:00 01/25/18 16:00 Temperature 97.5 F L 97.4 F L Pulse Rate 71 61 70 Respiratory Rate 16 14 Blood Pressure 129/63 113/64 Pulse Oximetry 100 100 01/25/18 20:00 01/26/18 00:00 01/26/18 03:09 Temperature 97.1 F L 97.5 F L Pulse Rate 84 70 71 Respiratory Rate 18 18 Blood Pressure 123/62 139/65 Pulse Oximetry 100 100 01/26/18 04:00 Temperature 97.5 F L Pulse Rate 72 Respiratory Rate 18 Blood Pressure 133/5 L Pulse Oximetry 100 Intake & Output 01/25/18 01/26/18 01/26/18 18:59 06:59 18:59 Intake Total 100 / 100 1100 / 1100 Output Total 650 / 650 1300 / 1300 200 / 200 Balance -550 / -550 -200 / -200 -200 / -200 Weight 236.3 kg Intake: IV 100 / 100 1100 / 1100 NS Inj 1,000 ML @ 100 mls/hr IV 1000 / 1000 .CONT .Q10H RITESH Rx#:[id number] Merrem Inj 500 MG In NS Inj 100 100 / 100 100 / 100 ML @ 200 mls/hr IV.SIG Q12H RITESH Rx#:[id number] Output: Urine 1300 / 1300 200 / 200 Urine Amount (Catheter) 650 / 650 Indwelling Urethral Catheter 650 / 650 Other: Date of Last Bowel Movement 01/25/18 # Bowel Movements 2 # Incontinent Bowel Movements 1 <Chaparro Sandoval - 01/26/18 08:41> - Constitutional no acute distress, morbidly obese, cooperative <Chaparro Sandoval - 01/26/18 15:30 > - Routine HEENT Exam Head: Present: normocephalic, atraumatic <Chaparro Sandoval 01/26/18 15:30> Eye: Present: EOMI <Chaparro Sandoval 01/26/18 15:30> ENT: Present: mucous membranes dry <Chaparro Sandoval 01/26/18 15:30> - Routine Respiratory Exam Present: CTA bilaterally. Absent: accessory muscle use, rales, respiratory distress, rhonchi, stridor, wheezes, crackles <Chaparro Sandoval 01/26/18 15:30> - Routine Cardiovascular Exam Present: RRR, S1, S2. Absent: murmur, gallop, rubs <Chaparro Sandoval 01/26/18 15:30> - Routine Abdominal Exam Present: soft, normoactive bowel sounds. Absent: tenderness, distended, rebound , guarding <Chaparro Sandoval 01/26/18 15:30> - Routine Extremities Exam Present: pulses intact, normal capillary refill. Absent: cyanosis, clubbing, edema <Chaparro Sandoval 01/26/18 15:30> Comments: Patient missing big toe on right foot as well as a small noninfected stage I ulcer on the medial aspect of second digit of the right foot measuring about 1 cm in diameter and healing well. <Chaparro Sandoval 01/26/18 15:30> - Routine Skin Exam Present: intact. Absent: cyanosis, erythema, rash <Chaparro Sandoval 01/26/18 15:30> - Routine Neurological Exam Present: alert, oriented X3, CN II-XII intact, moving all extremities, vision grossly intact, hearing grossly intact. Absent: sensory deficit, motor deficit , facial asymmetry <LoriChaparro Nails 01/26/18 15:30> Difficult to understand the patient's speech due to the patient having dentures in the time of exam. <SandovalChaparro Arjun Jaqui 01/26/18 15:30> - Detailed Neurological Exam: Coma Scale Eye Opening: Spontaneous <SandovalChaparro 01/26/18 15:30> Verbal Response: Oriented <SandovalChaparro giraldo 01/26/18 15:30> Motor Response: Obey commands <Chaparro Sandoval 01/26/18 15:30> [place] Coma Scale Total: 15 <Chaparro Sandoval 01/26/18 15:30> - Routine Psychiatric Exam Present: normal affect, normal thought process, cooperative <Chaparro Sandoval 01/26/18 15:30> - Urinary Catheter Management Indwelling Urethral Catheter Cath placed during this visit: no <Mariza Landaverde 01/30/18 14:59> yes <Chaparro Sandoval 01/26/18 15:30> Urethral indwelling: Yes <Chaparro Sandoval 01/26/18 08:41> Reason for continuing: Chronic Urinary Retention <Chaparro Sandoval 01/26/18 08: 41> Insertion date: 01/24/18 <Chaparro Sandoval 01/26/18 08:41> Insertion time: 10:50 <Chaparro Sandoval 01/26/18 08:41> Assessment and Plan - Assessment (1) Urinary tract infection associated with indwelling urethral catheter Code(s): T83.511A - Infection and inflammatory reaction due to indwelling urethral catheter, initial encounter; N39.0 - Urinary tract infection, site not specified Status: Acute (2) Altered mental status Code(s): R41.82 - Altered mental status, unspecified Status: Resolved (3) Acute kidney injury superimposed on chronic kidney disease Code(s): N17.9 - Acute kidney failure, unspecified; N18.9 - Chronic kidney disease, unspecified Status: Acute (4) Hypertension Code(s): I10 - Essential (primary) hypertension Status: Acute (5) Diabetes Code(s): E11.9 - Type 2 diabetes mellitus without complications Status: Acute (6) Gout Code(s): M10.9 - Gout, unspecified Status: Acute (7) Depression Code(s): F32.9 - Major depressive disorder, single episode, unspecified Status : Acute (8) Nutrition, metabolism, and development symptoms Code(s): R63.8 - Other symptoms and signs concerning food and fluid intake Status: Acute <Mariza Landaverde 01/30/18 14:59> (1) Urinary tract infection associated with indwelling urethral catheter Code(s): T83.511A - Infection and inflammatory reaction due to indwelling urethral catheter, initial encounter; N39.0 - Urinary tract infection, site not specified Status: Acute Plan: This patient was admitted for urinary tract infection in the setting of altered mental status and indwelling Yang catheter. He was also found to have an acute kidney injury superimposed on stage IV chronic kidney disease. On admission Yang catheter contained a mixture what appeared to be blood mixed with urine. In the ED urinalysis was positive for high-protein, large occult blood, and large amounts of leukocyte esterase and urine was sent for culture. Urinary culture preliminarily positive for Pseudomonas. White count today down to 9.6 from 11.3 and still afebrile at temperature 97.5. -Continue renally dosed meropenem in light of allergies -Monitor CBC -Monitor vitals (2) Altered mental status Code(s): R41.82 - Altered mental status, unspecified Status: Acute Plan: Patient was found to be in altered mental status by alf caregivers, patient known to be normally alert and oriented 3. On admission patient had a white blood cell count of 11.3 and a suspected urinary tract infection due to urinary leukocyte esterase found on UA. Patient was found to have a BUN of 66 on admission as well as a creatinine of 5.45. Ammonia level slightly increased at 36. Sodium levels at 135 on the low side of normal. H/H at 10.3/31.9. ABG was completed in the ED and blood pH was found to be slightly ascitic at 7.33 with a low range of normal being 7.38. Altered mental status at admission likely due to UTI versus uremia. Nephrology was consulted and did not recommend dialysis at the time. Today patient is alert and oriented and looks much better. -See plan for UTI above (3) Acute kidney injury superimposed on chronic kidney disease Code(s): N17.9 - Acute kidney failure, unspecified; N18.9 - Chronic kidney disease, unspecified Status: Acute Plan: On admission this patient was found to have an SHAHLA superimposed on chronic kidney disease of unknown stage. From previous admissions this patient has a baseline creatinine of 3 and on admission had a creatinine of 5.45 and BUN of 66. Through previous medical record review it was revealed that in November 2018 this patient had an ultrasound of both kidneys which showed a 2.2 cm cyst on the upper pole of the right kidney, moderate bilateral hydronephrosis with left ureter dilated, small amount of bladder debris, and increased renal echogenicity characteristic of medical renal disease. Abdominal CT on January 24, 2018 showed "hydronephrosis in both kidneys with hydroureter without definite stones not significantly changed from prior examinations. There was some gas inside the bladder from prior examination as well with uncertain etiology. This is indicative of possible infectious process or colovesical fistula if he has not had prior instrumentation in the area. There is also soft tissue density adjacent to the descending aorta which is densely calcified not present on prior exam. This could potentially be a mass or adenopathy, however possibility of contained hemorrhage at this site should be entertained not adequately characterized." In the ED patient's UA showed large amounts of occult blood. Patient's BUN/creatinine slowly improving today 61/5.09 slightly lower than yesterday. Nephrology senior solutions consultant does not recommend dialysis at this time. Consider dialysis if patient's renal function worsens. - Continue IV fluids with normal saline - Avoid any nephrotoxic agents - Hold Plavix due to hematuria - Continue meropenem - Monitor BUN/creatinine - Monitor electrolytes replete as necessary Of note: Following fluid recs per Nephrology. he is not oliguric so he is less likely to get fluid overloaded but will need careful monitoring. he said today he had not been eating or drinking [facility] a [facility] the [facility] (4) Hypertension Code(s): I10 - Essential (primary) hypertension Status: Acute Plan: Patient has history of hypertension currently treated with amlodipine. On admission patient had a blood pressure of 102/55. Blood pressure currently controlled. -Hold home blood pressure medications as patient's blood pressure is in the low to low normal range (5) Diabetes Code(s): E11.9 - Type 2 diabetes mellitus without complications Status: Acute Plan: Patient is a known type II diabetic on home NovoLog. -Insulin sliding scale while inpatient (6) Gout Code(s): M10.9 - Gout, unspecified Status: Acute Plan: Patient with a past medical history of gout managed with allopurinol at home. No indication of acute gout attack at this time. -Hold allopurinol resume once taking po as it is preventative. no higher of a dose than 100 mg per day (7) Depression Code(s): F32.9 - Major depressive disorder, single episode, unspecified Status : Acute Plan: According to alf patient suffers from depression. No previous psychiatric history at this time. -Hold any psychiatric medications until patient is alert, oriented, and arousable and able to be assessed. hopefully he can take po well and be restarted on these dosed renally of course (8) Nutrition, metabolism, and development symptoms Code(s): R63.8 - Other symptoms and signs concerning food and fluid intake Status: Acute Plan: Fluids: Continue hydration with normal saline at 80 mL/h per nephrology Electrolytes: Replete as needed Nutrition: Currently n.p.o., may begin regular diet once patient passes swallow study DVT prophylaxis: Heparin 5000 units SQ every 8 hours <Chaparro Sandoval - 01/26/18 15:02> - Attending Attestation The exam, history, and the medical decision-making described in the above note were completed with the assistance of the resident physician. I reviewed and agree with the findings presented. I attest that I had a [id number] encounter with the patient on the same day, and personally performed and documented my assessment and findings in the medical record. he is greatly improved from his comatose state on admission <Mariza Landaverde M - 01/30/18 14:59> <Chaparro Sandoval O - Last Filed: 01/26/18 15:02> (1) Urinary tract infection associated with indwelling urethral catheter Qualifiers: Encounter type: initial encounter Qualified Code(s): T83.511A - Infection and inflammatory reaction due to indwelling urethral catheter, initial encounter ; N39.0 - Urinary tract infection, site not specified (2) Altered mental status Qualifiers: Altered mental status type: delirium Qualified Code(s): R41.0 - Disorientation, unspecified (5) Diabetes Qualifiers: Diabetes mellitus type: type 2 Diabetes mellitus manager of hospital insulin use: with manager of hospital use Diabetes mellitus complication status: with kidney complications Diabetes mellitus complication detail: with chronic kidney disease Chronic kidney disease stage: stage 5, not on chronic dialysis Qualified Code(s): E11.22 - Type 2 diabetes mellitus with diabetic chronic kidney disease; N18.5 - Chronic kidney disease, stage 5; Z79.4 - [facility] (current) use of insulin <Mariza Landaverde - Last Filed: 01/30/18 14:59> (1) Urinary tract infection associated with indwelling urethral catheter Qualifiers: Encounter type: initial encounter Qualified Code(s): T83.511A - Infection and inflammatory reaction due to indwelling urethral catheter, initial encounter ; N39.0 - Urinary tract infection, site not specified (2) Altered mental status Qualifiers: Altered mental status type: delirium Qualified Code(s): R41.0 - Disorientation, unspecified (5) Diabetes Qualifiers: Diabetes mellitus type: type 2 Diabetes mellitus manager of hospital insulin use: with halfway use Diabetes mellitus complication status: with kidney complications Diabetes mellitus complication detail: with chronic kidney disease Chronic kidney disease stage: stage 5, not on chronic dialysis Qualified Code(s): E11.22 - Type 2 diabetes mellitus with diabetic chronic kidney disease; N18.5 - Chronic kidney disease, stage 5; Z79.4 - [facility] (current) use of insulin <Chaparro Sandoval - Last Filed: 01/26/18 15:02> (1) Urinary tract infection associated with indwelling urethral catheter Qualifiers: Encounter type: initial encounter Qualified Code(s): T83.511A - Infection and inflammatory reaction due to indwelling urethral catheter, initial encounter ; N39.0 - Urinary tract infection, site not specified (2) Altered mental status Qualifiers: Altered mental status type: delirium Qualified Code(s): R41.0 - Disorientation, unspecified (5) Diabetes Qualifiers: Diabetes mellitus type: type 2 Diabetes mellitus manager of hospital insulin use: with manager of hospital use Diabetes mellitus complication status: with kidney complications Diabetes mellitus complication detail: with chronic kidney disease Chronic kidney disease stage: stage 5, not on chronic dialysis Qualified Code(s): E11.22 - Type 2 diabetes mellitus with diabetic chronic kidney disease; N18.5 - Chronic kidney disease, stage 5; Z79.4 - [facility] (current) use of insulin <Mariza Landaverde - Last Filed: 01/30/18 14:59> (1) Urinary tract infection associated with indwelling urethral catheter Qualifiers: Encounter type: initial encounter Qualified Code(s): T83.511A - Infection and inflammatory reaction due to indwelling urethral catheter, initial encounter ; N39.0 - Urinary tract infection, site not specified (2) Altered mental status Qualifiers: Altered mental status type: delirium Qualified Code(s): R41.0 - Disorientation, unspecified (5) Diabetes Qualifiers: Diabetes mellitus type: type 2 Diabetes mellitus manager of hospital insulin use: with halfway use Diabetes mellitus complication status: with kidney complications Diabetes mellitus complication detail: with chronic kidney disease Chronic kidney disease stage: stage 5, not on chronic dialysis Qualified Code(s): E11.22 - Type 2 diabetes mellitus with diabetic chronic kidney disease; N18.5 - Chronic kidney disease, stage 5; Z79.4 - [facility] (current) use of insulin
--- NOTE | 2018-01-26 16:12 | P.PNNP ---
Subjective Interval history: Patient is having UTI acute renal failure Physical Exam Vital signs: Vital Signs 01/25/18 20:00 01/26/18 00:00 01/26/18 03:09 Temperature 97.1 F L 97.5 F L Pulse Rate 84 70 71 Respiratory Rate 18 18 Blood Pressure 123/62 139/65 Pulse Oximetry 100 100 01/26/18 04:00 01/26/18 08:00 01/26/18 09:00 Temperature 97.5 F L 97.4 F L Pulse Rate 72 77 73 Respiratory Rate 18 16 Blood Pressure 133/5 L 133/61 Pulse Oximetry 100 100 01/26/18 12:00 Temperature 97.5 F L Pulse Rate 68 Respiratory Rate 17 Blood Pressure 154/68 H Pulse Oximetry 99 Intake & Output 01/25/18 01/26/18 01/26/18 18:59 06:59 18:59 Intake Total 100 / 100 1100 / 1100 Output Total 650 / 650 1300 / 1300 200 / 200 Balance -550 / -550 -200 / -200 -200 / -200 Weight 236.3 kg Intake: IV 100 / 100 1100 / 1100 NS Inj 1,000 ML @ 100 mls/hr IV 1000 / 1000 .CONT .Q10H RITESH Rx#:[id number] Merrem Inj 500 MG In NS Inj 100 100 / 100 100 / 100 ML @ 200 mls/hr IV.SIG Q12H RITESH Rx#:[id number] Output: Urine 1300 / 1300 200 / 200 Urine Amount (Catheter) 650 / 650 Indwelling Urethral Catheter 650 / 650 Other: Date of Last Bowel Movement 01/25/18 01/26/18 # Bowel Movements 2 # Incontinent Bowel Movements 1 - Constitutional no acute distress - Routine HEENT Exam Head: Present: normocephalic Eye: Present: EOMI - Routine Neck Exam Present: supple - Routine Respiratory Exam Present: CTA bilaterally - Routine Cardiovascular Exam Present: RRR - Routine Abdominal Exam Present: soft, normoactive bowel sounds - Routine Extremities Exam Present: pulses intact - Urinary Catheter Management Indwelling Urethral Catheter Cath placed during this visit: yes Urethral indwelling: Yes Reason for continuing: Chronic Urinary Retention Insertion date: 01/24/18 Insertion time: 10:50 Assessment and Plan - Assessment (1) Acute kidney injury superimposed on chronic kidney disease Code(s): N17.9 - Acute kidney failure, unspecified; N18.9 - Chronic kidney disease, unspecified Status: Acute (2) Urinary tract infection associated with indwelling urethral catheter Code(s): T83.511A - Infection and inflammatory reaction due to indwelling urethral catheter, initial encounter; N39.0 - Urinary tract infection, site not specified Status: Acute Qualifiers: Encounter type: initial encounter Qualified Code(s): T83.511A - Infection and inflammatory reaction due to indwelling urethral catheter, initial encounter ; N39.0 - Urinary tract infection, site not specified (3) Diabetes Code(s): E11.9 - Type 2 diabetes mellitus without complications Status: Acute Qualifiers: Diabetes mellitus type: type 2 Diabetes mellitus van helper insulin use: with jail use Diabetes mellitus complication status: with kidney complications Diabetes mellitus complication detail: with chronic kidney disease Chronic kidney disease stage: stage 5, not on chronic dialysis Qualified Code(s): E11.22 - Type 2 diabetes mellitus with diabetic chronic kidney disease; N18.5 - Chronic kidney disease, stage 5; Z79.4 - [facility] ( current) use of insulin - Plan Patient acute renal failure is resolving he is passing urine, Pseudomonas infection in the urine on meropenem BMP pending Follow-up with Dr. Bal
[2018-01-27] MEDS: Sod Chloride 0.9% Inj 1,000 ML IV.CONT SCH ×2 (01:00→02:00)
[2018-01-27] MEDS: Insulin NovoLOG Aspart Correctional Sugar Inj SQ SCH ×5 (01:58→21:06)
[2018-01-27] MEDS: Heparin - SQ 10,000 UNITS/ML Vial SQ SCH ×3 (05:46→21:09)
[2018-01-27 08:15] LABS: Hematocrit 28.7 % (39.0-51.0); Hemoglobin 9.3 gm/dL (13.0-17.0); Mean Corpuscular HGB Conc 32.4 % (32.0-36.0); Mean Corpuscular Hemoglobin 28.5 pg (27.0-34.0); Mean Corpuscular Volume 87.8 fL (80.0-100.0); Mean Platelet Volume 6.1 fL (7.0-11.0); Platelet Count 252 th/mm3 (150-450); Red Blood Count 3.27 mil/mm3 (4.50-5.90); Red Cell Distribution Width 16.7 % (11.6-17.2); White Blood Count 6.9 th/mm3 (4.0-11.0)
[2018-01-27 09:26] LABS: Calcium 8.2 mg/dL (8.5-10.1); Carbon Dioxide 22.9 meq/L (21.0-32.0); Potassium 3.6 meq/L (3.5-5.1)
[2018-01-27 10:22] LABS: % Iron Saturation 19.8 % (20-50)
--- NOTE | 2018-01-27 11:21 | P.PNFP ---
Subjective Interval history: Patient seen and examined today. No acute events overnight. Currently denies nausea, vomiting, fever, chills, abdominal pain, chest pain, back pain. No other complaints at this time. <Lee Bejarano - 01/27/18 11:20> Results - Labs Result diagrams: 01/30/18 07:10 01/30/18 07:10 <AkhilUlissesMariza Zuhair - 01/30/18 15:01> Abnormal lab results 01/30/18 01/30/18 Range/Units 07:10 07:10 RBC 3.53 L (4.50-5.90) mil/mm3 Hgb 9.9 L (13.0-17.0) gm/dL Hct 30.7 L (39.0-51.0) % MPV 5.9 L (7.0-11.0) fL Chloride 111 H (98-107) meq/L BUN 26 H (7-18) mg/dL Creatinine 2.28 H (0.60-1.30) mg/dL Estimated GFR 28 L (>89) mL/min Random Glucose 73 L (74-106) mg/dL Calcium 8.1 L (8.5-10.1) mg/dL Short CBC 01/30/18 Range/Units 07:10 WBC 5.6 (4.0-11.0) th/mm3 Hgb 9.9 L (13.0-17.0) gm/dL Hct 30.7 L (39.0-51.0) % Plt Count 205 (150-450) th/mm3 BMP 01/30/18 07:10 Sodium 142 Potassium 3.9 Chloride 111 H Carbon Dioxide 23.3 BUN 26 H Creatinine 2.28 H Calcium 8.1 L <Mariza Landaverde - 01/30/18 15:01> Abnormal lab results 01/26/18 01/26/18 01/27/18 Range/Units 11:48 21:19 07:17 RBC 3.27 L (4.50-5.90) mil/mm3 Hgb 9.3 L (13.0-17.0) gm/dL Hct 28.7 L (39.0-51.0) % MPV 6.1 L (7.0-11.0) fL Sodium (136-145) meq/L Chloride (98-107) meq/L BUN (7-18) mg/dL Creatinine (0.60-1.30) mg/dL Estimated GFR (>89) mL/min POC Glucose 141 H 131 H (68-110) mg/dl Random Glucose (74-106) mg/dL Calcium (8.5-10.1) mg/dL Iron (65-175) mcg/dL TIBC (250-450) mcg/dL % Saturation (20-50) % 01/27/18 01/27/18 01/27/18 Range/Units 07:17 07:17 07:54 RBC (4.50-5.90) mil/mm3 Hgb (13.0-17.0) gm/dL Hct (39.0-51.0) % MPV (7.0-11.0) fL Sodium 149 H (136-145) meq/L Chloride 119 H (98-107) meq/L BUN 40 H (7-18) mg/dL Creatinine 3.54 H (0.60-1.30) mg/dL Estimated GFR 17 L (>89) mL/min POC Glucose 137 H (68-110) mg/dl Random Glucose 120 H (74-106) mg/dL Calcium 8.2 L (8.5-10.1) mg/dL Iron 41 L (65-175) mcg/dL TIBC 207 L (250-450) mcg/dL % Saturation 19.8 L (20-50) % Short CBC 01/27/18 Range/Units 07:17 WBC 6.9 (4.0-11.0) th/mm3 Hgb 9.3 L (13.0-17.0) gm/dL Hct 28.7 L (39.0-51.0) % Plt Count 252 (150-450) th/mm3 BMP 01/27/18 07:17 Sodium 149 H Potassium 3.6 Chloride 119 H Carbon Dioxide 22.9 BUN 40 H Creatinine 3.54 H Calcium 8.2 L <Lee Bejarano - 01/27/18 11:20> Physical Exam Vital signs: Vital Signs 01/29/18 16:00 01/29/18 20:00 01/30/18 00:00 Temperature 98 F 97.9 F 97.5 F L Pulse Rate 70 60 64 Respiratory Rate 18 18 18 Blood Pressure 140/66 150/63 H 137/60 Pulse Oximetry 96 98 94 L 01/30/18 04:00 01/30/18 08:46 01/30/18 12:54 Temperature 97.7 F 98.4 F 98.7 F Pulse Rate 65 86 84 Respiratory Rate 18 18 16 Blood Pressure 145/65 H 150/75 H 146/72 H Pulse Oximetry 90 L 93 L 91 L 01/30/18 13:41 Temperature Pulse Rate 73 Respiratory Rate Blood Pressure Pulse Oximetry Intake & Output 01/29/18 01/30/18 01/30/18 18:59 06:59 18:59 Intake Total 100 / 100 1340 / 1340 1000 / 1000 Output Total 500 / 500 800 / 800 1000 / 1000 Balance -400 / -400 540 / 540 0 / 0 Weight 236.7 kg Intake: IV 100 / 100 1100 / 1100 1000 / 1000 1/2 Normal Saline Inj 1,000 ML 1000 / 1000 1000 / 1000 @ 50 mls/hr IV.CONT .Q20H RITESH Rx#:[id number] Azactam Inj 1,000 MG In NS Inj 100 / 100 100 / 100 100 ML @ 200 mls/hr IV.SIG Q12H RITESH Rx#:[id number] Oral 240 / 240 Output: Urine 500 / 500 800 / 800 1000 / 1000 Other: # Voids 3 Date of Last Bowel Movement 01/29/18 # Bowel Movements 1 <Mariza Landaverde M - 01/30/18 15:01> Vital Signs 01/26/18 12:00 01/26/18 16:00 01/26/18 20:00 Temperature 97.5 F L 97.2 F L 97.3 F L Pulse Rate 68 73 78 Respiratory Rate 17 17 18 Blood Pressure 154/68 H 134/62 131/63 Pulse Oximetry 99 97 94 L 01/27/18 00:00 01/27/18 04:00 01/27/18 08:34 Temperature 97.7 F 97.8 F 98.3 F Pulse Rate 75 74 78 Respiratory Rate 18 18 19 Blood Pressure 153/67 H 155/70 H 165/70 H Pulse Oximetry 98 99 96 01/27/18 09:42 Temperature Pulse Rate Respiratory Rate Blood Pressure Pulse Oximetry 96 Intake & Output 01/26/18 01/27/18 01/27/18 18:59 06:59 18:59 Intake Total 700 / 700 100 / 100 Output Total 650 / 650 700 / 700 Balance 50 / 50 -600 / -600 Weight 236.7 kg Intake: IV 100 / 100 100 / 100 Merrem Inj 500 MG In NS Inj 100 100 / 100 100 / 100 ML @ 200 mls/hr IV.SIG Q12H RITESH Rx#:[id number] Oral 600 / 600 Output: Urine 650 / 650 700 / 700 Other: Date of Last Bowel Movement 01/26/18 01/26/18 01/26/18 # Bowel Movements 0 <Lee Bejarano - 01/27/18 11:20> Narrative: GENERAL: Laying in bed, no acute distress. SKIN: Warm and dry. Yang catheter in place. HEAD: Atraumatic. Normocephalic. EYES: Pupils equal and round. No scleral icterus. No injection or drainage. ENT: No nasal bleeding or discharge. Mucous membranes pink and moist. NECK: Trachea midline. No JVD. CARDIOVASCULAR: Regular rate and rhythm. RESPIRATORY: No accessory muscle use. Clear to auscultation. Breath sounds equal bilaterally. GASTROINTESTINAL: Abdomen soft, non-tender, nondistended. Hepatic and splenic margins not palpable. MUSCULOSKELETAL: Extremities without clubbing, cyanosis, or edema. No obvious deformities. NEUROLOGICAL: Awake and alert. No obvious cranial nerve deficits. Normal speech. <Lee Bejarano 01/27/18 11:20> - Urinary Catheter Management Indwelling Urethral Catheter Cath placed during this visit: no <Mariza Landaverde - 01/30/18 15:01> yes <Lee Bejarano 01/27/18 16:08> Urethral indwelling: Yes <Lee Bejarano 01/27/18 11:20> Reason for continuing: Chronic Urinary Retention <Lee Bejarano 01/27/18 11:20> Insertion date: 01/24/18 <Lee Bejarano 01/27/18 11:20> Insertion time: 10:50 <Lee Bejarano 01/27/18 11:20> Assessment and Plan - Assessment (1) Urinary tract infection associated with indwelling urethral catheter Code(s): T83.511A - Infection and inflammatory reaction due to indwelling urethral catheter, initial encounter; N39.0 - Urinary tract infection, site not specified Status: Acute (2) Altered mental status Code(s): R41.82 - Altered mental status, unspecified Status: Resolved (3) Acute kidney injury superimposed on chronic kidney disease Code(s): N17.9 - Acute kidney failure, unspecified; N18.9 - Chronic kidney disease, unspecified Status: Acute (4) Hypertension Code(s): I10 - Essential (primary) hypertension Status: Acute (5) Diabetes Code(s): E11.9 - Type 2 diabetes mellitus without complications Status: Acute (6) Gout Code(s): M10.9 - Gout, unspecified Status: Acute (7) Depression Code(s): F32.9 - Major depressive disorder, single episode, unspecified Status : Acute (8) Nutrition, metabolism, and development symptoms Code(s): R63.8 - Other symptoms and signs concerning food and fluid intake Status: Acute <Mariza Landaverde Zuhair - 01/30/18 15:01> (1) Urinary tract infection associated with indwelling urethral catheter Code(s): T83.511A - Infection and inflammatory reaction due to indwelling urethral catheter, initial encounter; N39.0 - Urinary tract infection, site not specified Status: Acute Plan: This patient was admitted for urinary tract infection in the setting of altered mental status and indwelling Yang catheter. He was also found to have an acute kidney injury superimposed on stage IV chronic kidney disease. On admission Yang catheter contained a mixture what appeared to be blood mixed with urine. In the ED urinalysis was positive for high-protein, large occult blood, and large amounts of leukocyte esterase and urine was sent for culture. Urinary culture preliminarily positive for Pseudomonas. White count today down to 9.6 from 11.3 and still afebrile at temperature 97.5. -Continue renally dosed meropenem in light of allergies -Monitor CBC -Monitor vitals -Infectious disease consulted for antibiotic guidance, follow-up recommendations (2) Altered mental status Code(s): R41.82 - Altered mental status, unspecified Status: Acute Plan: Patient was found to be in altered mental status by [facility] caregivers, patient known to be normally alert and oriented 3. On admission patient had a white blood cell count of 11.3 and a suspected urinary tract infection due to urinary leukocyte esterase found on UA. Patient was found to have a BUN of 66 on admission as well as a creatinine of 5.45. Ammonia level slightly increased at 36. Sodium levels at 135 on the low side of normal. H/H at 10.3/31.9. ABG was completed in the ED and blood pH was found to be slightly ascitic at 7.33 with a low range of normal being 7.38. Altered mental status at admission likely due to UTI versus uremia. Nephrology was consulted and did not recommend dialysis at the time. Today patient is alert and oriented and looks much better. -See plan for UTI above (3) Acute kidney injury superimposed on chronic kidney disease Code(s): N17.9 - Acute kidney failure, unspecified; N18.9 - Chronic kidney disease, unspecified Status: Acute Plan: On admission this patient was found to have an SHHALA superimposed on chronic kidney disease of unknown stage. From previous admissions this patient has a baseline creatinine of 3 and on admission had a creatinine of 5.45 and BUN of 66. Through previous medical record review it was revealed that in November 2018 this patient had an ultrasound of both kidneys which showed a 2.2 cm cyst on the upper pole of the right kidney, moderate bilateral hydronephrosis with left ureter dilated, small amount of bladder debris, and increased renal echogenicity characteristic of medical renal disease. Abdominal CT on January 24, 2018 showed "hydronephrosis in both kidneys with hydroureter without definite stones not significantly changed from prior examinations. There was some gas inside the bladder from prior examination as well with uncertain etiology. This is indicative of possible infectious process or colovesical fistula if he has not had prior instrumentation in the area. There is also soft tissue density adjacent to the descending aorta which is densely calcified not present on prior exam. This could potentially be a mass or adenopathy, however possibility of contained hemorrhage at this site should be entertained not adequately characterized." In the ED patient's UA showed large amounts of occult blood. Patient's BUN/creatinine slowly improving today 61/5.09 slightly lower than yesterday. Nephrology customs consultant does not recommend dialysis at this time. Consider dialysis if patient's renal function worsens. - Continue IV fluids with normal saline - Avoid any nephrotoxic agents - Hold Plavix due to hematuria - Continue meropenem - Monitor BUN/creatinine - Monitor electrolytes replete as necessary Of note: Following fluid recs per Nephrology. he is not oliguric so he is less likely to get fluid overloaded but will need careful monitoring. (4) Hypertension Code(s): I10 - Essential (primary) hypertension Status: Acute Plan: Patient has history of hypertension currently treated with amlodipine. On admission patient had a blood pressure of 102/55. Blood pressure currently controlled. -Hold home blood pressure medications as patient's blood pressure is in the low to low normal range (5) Diabetes Code(s): E11.9 - Type 2 diabetes mellitus without complications Status: Acute Plan: Patient is a known type II diabetic on home NovoLog. -Insulin sliding scale while inpatient (6) Gout Code(s): M10.9 - Gout, unspecified Status: Acute Plan: Patient with a past medical history of gout managed with allopurinol at home. No indication of acute gout attack at this time. -Hold allopurinol resume once taking po as it is preventative. no higher of a dose than 100 mg per day (7) Depression Code(s): F32.9 - Major depressive disorder, single episode, unspecified Status : Acute Plan: According to [facility]iary patient suffers from depression. No previous psychiatric history at this time. -Hold any psychiatric medications until patient is alert, oriented, and arousable and able to be assessed. hopefully he can take po well and be restarted on these dosed renally of course (8) Nutrition, metabolism, and development symptoms Code(s): R63.8 - Other symptoms and signs concerning food and fluid intake Status: Acute Plan: Fluids: Continue hydration with normal saline at 80 mL/h per nephrology Electrolytes: Replete as needed Nutrition: Currently n.p.o., may begin regular diet once patient passes swallow study DVT prophylaxis: Heparin 5000 units SQ every 8 hours <Lee Bejarano - 01/27/18 16:08> - Attending Attestation The exam, history, and the medical decision-making described in the above note were completed with the assistance of the resident physician. I reviewed and agree with the findings presented. I attest that I had a [id number] encounter with the patient on the same day, and personally performed and documented my assessment and findings in the medical record. fortunately, he continues to improve with his renal fxn <Mariza Landaverde - 01/30/18 15:01> <Lee Bejarano - Last Filed: 01/27/18 16:08> (1) Urinary tract infection associated with indwelling urethral catheter Qualifiers: Encounter type: initial encounter Qualified Code(s): T83.511A - Infection and inflammatory reaction due to indwelling urethral catheter, initial encounter ; N39.0 - Urinary tract infection, site not specified (2) Altered mental status Qualifiers: Altered mental status type: delirium Qualified Code(s): R41.0 - Disorientation, unspecified (5) Diabetes Qualifiers: Diabetes mellitus type: type 2 Diabetes mellitus superintendent container terminal insulin use: with superintendent container terminal use Diabetes mellitus complication status: with kidney complications Diabetes mellitus complication detail: with chronic kidney disease Chronic kidney disease stage: stage 5, not on chronic dialysis Qualified Code(s): E11.22 - Type 2 diabetes mellitus with diabetic chronic kidney disease; N18.5 - Chronic kidney disease, stage 5; Z79.4 - [facility] (current) use of insulin <Mariza Landaverde - Last Filed: 01/30/18 15:01> (1) Urinary tract infection associated with indwelling urethral catheter Qualifiers: Encounter type: initial encounter Qualified Code(s): T83.511A - Infection and inflammatory reaction due to indwelling urethral catheter, initial encounter ; N39.0 - Urinary tract infection, site not specified (2) Altered mental status Qualifiers: Altered mental status type: delirium Qualified Code(s): R41.0 - Disorientation, unspecified (5) Diabetes Qualifiers: Diabetes mellitus type: type 2 Diabetes mellitus superintendent container terminal insulin use: with superintendent container terminal use Diabetes mellitus complication status: with kidney complications Diabetes mellitus complication detail: with chronic kidney disease Chronic kidney disease stage: stage 5, not on chronic dialysis Qualified Code(s): E11.22 - Type 2 diabetes mellitus with diabetic chronic kidney disease; N18.5 - Chronic kidney disease, stage 5; Z79.4 - [facility] (current) use of insulin <Lee Bejarano - Last Filed: 01/27/18 16:08> (1) Urinary tract infection associated with indwelling urethral catheter Qualifiers: Encounter type: initial encounter Qualified Code(s): T83.511A - Infection and inflammatory reaction due to indwelling urethral catheter, initial encounter ; N39.0 - Urinary tract infection, site not specified (2) Altered mental status Qualifiers: Altered mental status type: delirium Qualified Code(s): R41.0 - Disorientation, unspecified (5) Diabetes Qualifiers: Diabetes mellitus type: type 2 Diabetes mellitus fpc insulin use: with superintendent container terminal use Diabetes mellitus complication status: with kidney complications Diabetes mellitus complication detail: with chronic kidney disease Chronic kidney disease stage: stage 5, not on chronic dialysis Qualified Code(s): E11.22 - Type 2 diabetes mellitus with diabetic chronic kidney disease; N18.5 - Chronic kidney disease, stage 5; Z79.4 - [facility] (current) use of insulin <Mariza Landaverde - Last Filed: 01/30/18 15:01> (1) Urinary tract infection associated with indwelling urethral catheter Qualifiers: Encounter type: initial encounter Qualified Code(s): T83.511A - Infection and inflammatory reaction due to indwelling urethral catheter, initial encounter ; N39.0 - Urinary tract infection, site not specified (2) Altered mental status Qualifiers: Altered mental status type: delirium Qualified Code(s): R41.0 - Disorientation, unspecified (5) Diabetes Qualifiers: Diabetes mellitus type: type 2 Diabetes mellitus superintendent container terminal insulin use: with superintendent container terminal use Diabetes mellitus complication status: with kidney complications Diabetes mellitus complication detail: with chronic kidney disease Chronic kidney disease stage: stage 5, not on chronic dialysis Qualified Code(s): E11.22 - Type 2 diabetes mellitus with diabetic chronic kidney disease; N18.5 - Chronic kidney disease, stage 5; Z79.4 - [facility] (current) use of insulin
--- NOTE | 2018-01-27 13:17 | P.CONID ---
History of Present Illness Service: Infectious disease Consult date: 01/27/18 Requesting Physician: Mariza Landaverde Reason for Consult: Evaluate patient with Pseudomonas UTI Primary Care Provider: UNKNOWN History of Present Illness: Patient seen and examined. Records reviewed. 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 According to the notes as a baseline patient is normally alert and oriented 3. There was no mention of any fever or chills, or any respiratory complaint. No mention of any nausea or vomiting or diarrhea. His Roman catheter gets changed once a month. On presentation he was lethargic. His WBC was 11.3. Highest temperature has been 99.5. Urinalysis showed significant pyuria. CT of the abdomen and pelvis showed chronic hydronephrosis and no stones seen. This is stable compared to his imaging studies from November 2017 where it showed the hydronephrosis. Patient was started on antibiotics. His mental status improved. Patient also has chronic kidney disease. His urine culture is now reported as growing Pseudomonas. Infectious disease consultation has been requested to evaluate the patient Review of Systems Constitutional: Denies chills, Denies fever(s) Eyes: Denies discharge, Denies itchy eyes Ears, Nose, Mouth, and Throat: Denies ear pain, Denies facial pain, Denies headache(s), Denies neck pain, Denies sore throat Cardiovascular: Denies chest pain, Denies shortness of breath Respiratory: Denies chest congestion, Denies cough, Denies shortness of breath Gastrointestinal: Denies abdominal pain, Denies loose stools, Denies nausea, Denies pain with swallowing, Denies vomiting Genitourinary: Denies scrotal swelling Musculoskeletal: Reports limited joint movement Skin/Breast: Denies rash PMFSH - History History 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, 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, 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 - Medical History Medical History: Medical History (Last Updated 01/27/18 @ 13:07 by Joyce Bermeo MD) Afib Amputated great toe Anemia BPH (benign prostatic hyperplasia) CHF (congestive heart failure) CKD (chronic kidney disease) COPD (chronic obstructive pulmonary disease) Dementia Depression Diabetes GERD (gastroesophageal reflux disease) Gout HTN (hypertension) Hyperlipemia Hypertension MRSA (methicillin resistant Staphylococcus aureus) PEG (percutaneous endoscopic gastrostomy) adjustment/replacement/removal Pneumonia Sepsis UTI (urinary tract infection) - Surgical History Surgical History: Surgical History (Last Updated 01/27/18 @ 13:07 by Joyce Bermeo MD) H/O arthroscopy - Tobacco History Tobacco Use In Past 30 Days: No Smoking Status: Former smoker Tobacco Type: Cigarettes Packs Per Day: 1 Smoking End Date: 2015 - Alcohol History How Often Do You Have a Drink Containing Alcohol: Never - Substance Use History Substance History: No History of Abuse, Unable to Obtain - Travel History Recent Travel in the [place] Within the Last 8 Weeks: No Recent Travel Out of the Country Within the Last 8 Weeks: No - Immunization History Tetanus Immunization: Unable to Assess Hx Influenza Vaccine This Season: No Medications and Allergies Active Medications: Active Medications Al Hydroxide/Mg Hydroxide (Milk Of Bryan Liq) 30 ml PO Q12H PRN PRN Reason: Mild Constipation Albuterol (Duoneb Neb (Prn)) 1 ampul NEB Q4HR NEB PRN PRN Reason: Shortness Of Breath Bisacodyl (Dulcolax Supp) 10 mg RECTAL DAILY PRN PRN Reason: SEVERE CONSITIPATION Dextrose (D50w Vial) 50 ml IV.PUSH UNSCH PRN PRN Reason: PER HYPOGLYCEMIA PROTOCOL Last Admin: 01/26/18 08:06 Dose: 50 ml Epoetin Kayleen (Epogen Inj) 10,000 unit SQ ONCE RITESH Glucagon (Glucagon Inj) 1 mg OTHER PRN PRN PRN Reason: for Hypoglycemia Protocol Heparin Sodium (Porcine) (Heparin Inj) 5,000 units SQ Q8HR RITESH Last Admin: 01/27/18 05:46 Dose: 5,000 units Hydrocortisone Acetate (Hydrocortisone 1% Cream) 1 applicatio TOPICAL Q6HR PRN PRN Reason: Itching Meropenem 500 mg/ Sodium (Chloride) 100 mls @ 200 mls/hr IV.SIG Q12H RITESH Last Admin: 01/27/18 12:08 Dose: 200 mls/hr Dextrose (D5w Inj) 500 mls @ 50 mls/hr IV.CONT .Q10H [facility] Last Admin: 01/27/18 12:09 Dose: 50 mls/hr Insulin Aspart (Novolog Insulin Correctional Sugar Inj) 0 unit SQ ACHS RITESH; Protocol Last Admin: 01/27/18 12:09 Dose: Not Given Lactulose (Lactulose Liq) 30 ml PO DAILY PRN PRN Reason: SEVERE CONSITIPATION Ondansetron HCl (Zofran Odt) 4 mg SL Q6H PRN PRN Reason: NAUSEA OR VOMITING Senna/Docusate Sodium (Demetria-Colace) 1 tab PO BID PRN PRN Reason: CONSTIPATION Sennosides (Senokot) 17.2 mg PO Q12H PRN PRN Reason: Moderate Constipation Sodium Chloride (Ns Flush) 2 ml IV.FLUSH PRN PRN PRN Reason: FLUSH AFTER USING IV ACCESS Allergies Allergy/AdvReac Type Severity Reaction Status Date / Time cephalexin Allergy Unknown Hives Verified 01/24/18 11:42 Influenza Virus Vaccines Allergy Unknown Hives Verified 01/24/18 11:42 levofloxacin Allergy Unknown Hives Verified 01/24/18 11:42 moxifloxacin Allergy Unknown Hives Verified 01/24/18 11:42 Home Medications Medication Instructions Recorded Confirmed Type acetaminophen [Tylenol] 650 mg PO Q8HR PRN 01/24/18 01/24/18 History allopurinol 100 mg PO DAILY 01/24/18 01/24/18 History amlodipine 5 mg PO DAILY 01/24/18 01/24/18 History ampicillin 500 mg PO TID 01/24/18 01/24/18 History atorvastatin [Lipitor] 40 mg PO HS 01/24/18 01/24/18 History baclofen 10 mg PO TID 01/24/18 01/24/18 History calcium carbonate-vitamin D3 1 tab PO BID 01/24/18 01/24/18 History [Calcium 600 + D(3)] clopidogrel [Plavix] 75 mg PO DAILY 01/24/18 01/24/18 History docusate sodium [Colace] 100 mg PO DAILY 01/24/18 01/24/18 History duloxetine [Cymbalta] 40 mg PO DAILY 01/24/18 01/24/18 History epoetin kayleen [Epogen] 2,000 unit SUB-Q WEEKLY 01/24/18 01/24/18 History ferrous sulfate 325 mg PO TID 01/24/18 01/24/18 History fluticasone-vilanterol [Breo 1 inh INHALATION DAILY 01/24/18 01/24/18 History Ellipta] gabapentin 100 mg PO DAILY 01/24/18 01/24/18 History glucagon (human recombinant) 1 mg IM Q10M PRN 01/24/18 01/24/18 History [Glucagon Emergency Kit (human)] hydrocodone-acetaminophen [[place]] 1 tab PO Q4H PRN 01/24/18 01/24/18 History hydrocortisone 1 applic TOPICAL Q6HR PRN 01/24/18 01/24/18 History insulin aspart U-100 [Novolog 1 unit SUB-Q QAM 01/24/18 01/24/18 History Flexpen U-100 Insulin] ipratropium-albuterol 3 ml INHALATION Q4HR PRN 01/24/18 01/24/18 History magnesium hydroxide [Milk of 30 ml PO DAILY PRN 01/24/18 01/24/18 History Magnesia] multivitamin with minerals 1 tab PO DAILY 01/24/18 01/24/18 History omeprazole 20 mg PO DAILY 01/24/18 01/24/18 History ondansetron HCl [Zofran] 4 mg PO Q8HR PRN 01/24/18 01/24/18 History prochlorperazine maleate 5 mg PO Q8HR PRN 01/24/18 01/24/18 History [Compazine] sodium phosphates [Fleet Enema] 118 ml NE DAILY PRN 01/24/18 01/24/18 History tamsulosin 0.4 mg PO HS 01/24/18 01/24/18 History Exam Vital signs: Vital Signs 01/26/18 16:00 01/26/18 20:00 01/27/18 00:00 Temperature 97.2 F L 97.3 F L 97.7 F Pulse Rate 73 78 75 Respiratory Rate 17 18 18 Blood Pressure 134/62 131/63 153/67 H Pulse Oximetry 97 94 L 98 01/27/18 04:00 01/27/18 08:34 01/27/18 09:42 Temperature 97.8 F 98.3 F Pulse Rate 74 78 Respiratory Rate 18 19 Blood Pressure 155/70 H 165/70 H Pulse Oximetry 99 96 96 01/27/18 12:08 Temperature 98.2 F Pulse Rate 75 Respiratory Rate 19 Blood Pressure 143/55 H Pulse Oximetry 95 Intake & Output 01/26/18 01/27/18 01/27/18 18:59 06:59 18:59 Intake Total 700 / 700 100 / 100 560 / 560 Output Total 650 / 650 700 / 700 450 / 450 Balance 50 / 50 -600 / -600 110 / 110 Weight 236.7 kg Intake: IV 100 / 100 100 / 100 Merrem Inj 500 MG In NS Inj 100 100 / 100 100 / 100 ML @ 200 mls/hr IV.SIG Q12H RITESH Rx#:[id number] Oral 600 / 600 560 / 560 Output: Urine 650 / 650 700 / 700 450 / 450 Other: Date of Last Bowel Movement 01/26/18 01/26/18 01/26/18 # Bowel Movements 0 Narrative: Physical Examination GENERAL: Patient is an obese, well-developed male, awake and alert, oriented x 3, not in respiratory distress. SKIN: Cool and dry. No generalized rash, no ecchymoses and no evidence of embolic lesions. HEAD: Atraumatic. Normocephalic. No temporal wasting, or tenderness. EYES: [place] conjunctiva. No petechia or hemorrhage. Pupils equal, round and reactive to light. Extraocular movements full and intact. No scleral icterus. No injection or drainage. EARS, NOSE AND THROAT: Nose without bleeding or purulent nasal discharge. No sinus tenderness. Mucous membranes pink and moist. No oral lesions noted. No exudate. No oral thrush. NECK: Trachea midline. Supple and not tender, no meningeal signs CARDIOVASCULAR: Regular rate and rhythm. No murmurs, rubs or gallops heard RESPIRATORY: Clear to auscultation. Breath sounds equal bilaterally. No rales , wheezing or rhonchi ABDOMEN: Soft, non-tender, nondistended. Bowel sounds present and normoactive. No guarding. No rebound. No organomegaly. EXTREMITIES: No clubbing, cyanosis. RLE looks bigger compared to LLE. No calf tenderness. Well perfused and warm. Amputation site R foot well healed. NEUROLOGICAL: Awake and alert. Cranial nerves grossly intact. Moving all extremities PSYCHIATRIC: Normal affect, calm and cooperative. : Roman in place LINE: No evidence of infection Results - Labs CBC & Chem 7: 01/28/18 06:51 01/28/18 06:51 Labs: Laboratory Results - last 24 hr 01/26/18 01/26/18 01/27/18 16:22 21:19 07:17 WBC 6.9 RBC 3.27 L Hgb 9.3 L Hct 28.7 L MCV 87.8 MCH 28.5 MCHC 32.4 RDW 16.7 Plt Count 252 MPV 6.1 L Sodium Potassium Chloride Carbon Dioxide Anion Gap BUN Creatinine Estimated GFR POC Glucose 94 131 H Random Glucose Calcium Iron TIBC % Saturation 01/27/18 01/27/18 01/27/18 07:17 07:17 07:54 WBC RBC Hgb Hct MCV MCH MCHC RDW Plt Count MPV Sodium 149 H Potassium 3.6 Chloride 119 H Carbon Dioxide 22.9 Anion Gap 7 BUN 40 H Creatinine 3.54 H Estimated GFR 17 L POC Glucose 137 H Random Glucose 120 H Calcium 8.2 L Iron 41 L TIBC 207 L % Saturation 19.8 L 01/27/18 11:25 WBC RBC Hgb Hct MCV MCH MCHC RDW Plt Count MPV Sodium Potassium Chloride Carbon Dioxide Anion Gap BUN Creatinine Estimated GFR POC Glucose 146 H Random Glucose Calcium Iron TIBC % Saturation - Imaging Abdomen/Pelvis CT 01/24/18 00:00 CONCLUSION: 1. There is hydronephrosis in both kidneys with hydroureter without definite stones not significantly changed since the prior examination and there are gas filled inside the bladder present on the prior examination of uncertain etiology. If the patient has not had instrumentation, possibility of infectious process or colovesical fistula is not excluded. 2. There is soft tissue density adjacent to descending aorta which is densely calcified not present on the prior exam. It could potentially be mass or adenopathy, however possibility of contained hemorrhage at this site should be entertained and not adequately characterized. May consider further characterization with CT angiogram of aorta. Chest X-Ray 01/24/18 09:42 CONCLUSION: Underinflated examination with atelectasis at the lung bases. Otherwise, stable examination. Head CT 01/24/18 09:42 CONCLUSION: 1. Stable noncontrast head CT. No acute intracranial abnormality is identified. 2. Stable chronic findings include generalized atrophy and mild periventricular white matter low-attenuation characteristic of chronic microvascular ischemia. Assessment and Plan - Plan Impression Sepsis on admsission due to UTI Roman associated UTI, C/S PSAE Chronic obstructive uropathy with chronic bilateral hydronephrosis CKD due to chronic obstructive uropathy Encephalopathy due to sepsis, resolved Recommendation IV Azactam Repeat UA and C/S - will decide on course of Rx once repeat UA seen May need change of roman more frequently Follow C/S Monitor progress I will follow along with you Thank you for this consultation
--- NOTE | 2018-01-27 14:15 | P.PNNP ---
Subjective Interval history: Awake, slightly confused. Renal function is better. <ShaliniMarizaEfra - Last Filed: 01/27/18 14:10> Physical Exam Vital signs: Vital Signs 01/26/18 16:00 01/26/18 20:00 01/27/18 00:00 Temperature 97.2 F L 97.3 F L 97.7 F Pulse Rate 73 78 75 Respiratory Rate 17 18 18 Blood Pressure 134/62 131/63 153/67 H Pulse Oximetry 97 94 L 98 01/27/18 04:00 01/27/18 08:34 01/27/18 09:42 Temperature 97.8 F 98.3 F Pulse Rate 74 78 Respiratory Rate 18 19 Blood Pressure 155/70 H 165/70 H Pulse Oximetry 99 96 96 01/27/18 12:08 Temperature 98.2 F Pulse Rate 75 Respiratory Rate 19 Blood Pressure 143/55 H Pulse Oximetry 95 Intake & Output 01/26/18 01/27/18 01/27/18 18:59 06:59 18:59 Intake Total 700 / 700 100 / 100 560 / 560 Output Total 650 / 650 700 / 700 450 / 450 Balance 50 / 50 -600 / -600 110 / 110 Weight 236.7 kg Intake: IV 100 / 100 100 / 100 Merrem Inj 500 MG In NS Inj 100 100 / 100 100 / 100 ML @ 200 mls/hr IV.SIG Q12H RITESH Rx#:[id number] Oral 600 / 600 560 / 560 Output: Urine 650 / 650 700 / 700 450 / 450 Other: Date of Last Bowel Movement 01/26/18 01/26/18 01/26/18 # Bowel Movements 0 - Constitutional no acute distress, chronically ill appearing, cooperative - Routine HEENT Exam Head: Present: normocephalic - Routine Neck Exam Present: supple, full ROM - Routine Respiratory Exam Present: CTA bilaterally. Absent: accessory muscle use - Routine Cardiovascular Exam Present: RRR, S1, S2 - Routine Abdominal Exam Present: soft, normoactive bowel sounds - Routine Extremities Exam Present: normal capillary refill. Absent: edema - Routine Skin Exam Present: intact, warm - Routine Neurological Exam Present: alert, moving all extremities some confusion - Detailed Neurological Exam: Coma Scale Eye Opening: Spontaneous Verbal Response: Confused Motor Response: Obey commands Shelbi Coma Scale Total: 14 - Routine Psychiatric Exam Present: normal affect, normal thought process - Urinary Catheter Management Indwelling Urethral Catheter Cath placed during this visit: yes Urethral indwelling: Yes Reason for continuing: Chronic Urinary Retention Insertion date: 01/24/18 Insertion time: 10:50 <Mariza Loya - Last Filed: 01/27/18 14:10> Vital signs: Vital Signs 01/27/18 12:08 01/27/18 15:02 01/27/18 16:00 Temperature 98.2 F 98.4 F Pulse Rate 75 71 73 Respiratory Rate 19 19 Blood Pressure 143/55 H 138/71 Pulse Oximetry 95 96 01/27/18 22:15 01/28/18 00:40 01/28/18 05:45 Temperature 98 F 97 F L 98.1 F Pulse Rate 60 68 64 Respiratory Rate 18 19 20 Blood Pressure 145/65 H 132/62 130/67 Pulse Oximetry 99 98 98 01/28/18 08:00 01/28/18 09:00 Temperature 97.4 F L Pulse Rate 76 Respiratory Rate 12 12 Blood Pressure 176/74 H Pulse Oximetry 97 Intake & Output 01/27/18 01/28/18 01/28/18 18:59 06:59 18:59 Intake Total 560 / 560 1800 / 1800 Output Total 450 / 450 1652 / 1652 Balance 110 / 110 148 / 148 Weight 236.7 kg Intake: IV 700 / 700 D5W Inj 500 ML @ 50 mls/hr IV. 500 / 500 CONT .Q10H RITESH Rx#:[id number] Merrem Inj 500 MG In NS Inj 100 200 / 200 ML @ 200 mls/hr IV.SIG Q12H RITESH Rx#:[id number] Oral 560 / 560 1100 / 1100 Output: Urine 450 / 450 1650 / 1650 Stool 2 / 2 Other: Date of Last Bowel Movement 01/26/18 01/26/18 # Bowel Movements 1 - Urinary Catheter Management Indwelling Urethral Catheter Cath placed during this visit: no <Curt Bal - Last Filed: 01/28/18 11:12> Assessment and Plan - Assessment (1) Acute kidney injury superimposed on chronic kidney disease Code(s): N17.9 - Acute kidney failure, unspecified; N18.9 - Chronic kidney disease, unspecified Status: Acute Plan: SHAHLA on CKD 4 Renal function is slightly better. Repeat labs tomorrow Hypernatremic, change IVF to D5W @ 50 Monitor urine output, has a Yang catheter Avoid nephrotoxic agents PO fluids encouraged (2) Urinary tract infection associated with indwelling urethral catheter Code(s): T83.511A - Infection and inflammatory reaction due to indwelling urethral catheter, initial encounter; N39.0 - Urinary tract infection, site not specified Status: Acute Qualifiers: Encounter type: initial encounter Qualified Code(s): T83.511A - Infection and inflammatory reaction due to indwelling urethral catheter, initial encounter ; N39.0 - Urinary tract infection, site not specified Plan: Unclear if the Yang catheter was replaced since admission. he is on meropenem for Pseudomonas UTI. (3) Diabetes Code(s): E11.9 - Type 2 diabetes mellitus without complications Status: Acute Qualifiers: Diabetes mellitus type: type 2 Diabetes mellitus skilled nursing insulin use: with oysterman use Diabetes mellitus complication status: with kidney complications Diabetes mellitus complication detail: with chronic kidney disease Chronic kidney disease stage: stage 5, not on chronic dialysis Qualified Code(s): E11.22 - Type 2 diabetes mellitus with diabetic chronic kidney disease; N18.5 - Chronic kidney disease, stage 5; Z79.4 - jail ( current) use of insulin Plan: Insulin coverage, to maintain blood glucose between 140 and 180. (4) Anemia Code(s): D64.9 - Anemia, unspecified Status: Acute Plan: Iron deficiency present, however avoid Venofer given Sepsis. Start oral iron. <Mariza Loya - Last Filed: 01/27/18 14:10> - Assessment (1) Acute kidney injury superimposed on chronic kidney disease Code(s): N17.9 - Acute kidney failure, unspecified; N18.9 - Chronic kidney disease, unspecified Status: Acute (2) Urinary tract infection associated with indwelling urethral catheter Code(s): T83.511A - Infection and inflammatory reaction due to indwelling urethral catheter, initial encounter; N39.0 - Urinary tract infection, site not specified Status: Acute Qualifiers: Encounter type: initial encounter Qualified Code(s): T83.511A - Infection and inflammatory reaction due to indwelling urethral catheter, initial encounter ; N39.0 - Urinary tract infection, site not specified (3) Diabetes Code(s): E11.9 - Type 2 diabetes mellitus without complications Status: Acute Qualifiers: Diabetes mellitus type: type 2 Diabetes mellitus skilled nursing insulin use: with oysterman use Diabetes mellitus complication status: with kidney complications Diabetes mellitus complication detail: with chronic kidney disease Chronic kidney disease stage: stage 5, not on chronic dialysis Qualified Code(s): E11.22 - Type 2 diabetes mellitus with diabetic chronic kidney disease; N18.5 - Chronic kidney disease, stage 5; Z79.4 - jail ( current) use of insulin (4) Anemia Code(s): D64.9 - Anemia, unspecified Status: Acute - Attending Attestation patient was seen and examined. Agree with above assessment and plan. Renal function is stable. On Cefepime. Urine culture grew Pseudomonas. <Curt Bal - Last Filed: 01/28/18 11:12>
[2018-01-27] MEDS ORDERED: Ibuprofen 600 MG Tablet PO PRN (15:16)
[2018-01-27] MEDS: Ferrous Sulfate 325 MG Tablet PO SCH (21:06)
[2018-01-28 01:07] LABS: Bacteria,Urine Rare /hpf; Bilirubin,Urine Negative (Negative); Clarity,Urine Hazy (Clear); Color,Urine Yellow (Yellw/Straw); Glucose,Urine (UA) 50 mg/dL (Negative); Leukocyte Esterase,Urine Large (Negative); Mucus,Urine Few /lpf (Occasional); Nitrite,Urine Negative (Negative); Specific Gravity,Urine 1.011 (1.002-1.035)
[2018-01-28] MEDS: Acetaminophen 325 MG Tablet PO PRN ×3 (01:23→23:04)
[2018-01-28] MEDS: Insulin NovoLOG Aspart Correctional Sugar Inj SQ SCH ×5 (06:32→23:05)
[2018-01-28] MEDS: Heparin - SQ 10,000 UNITS/ML Vial SQ SCH ×3 (06:33→23:03)
[2018-01-28 07:55] LABS: Hematocrit 29.4 % (39.0-51.0); Hemoglobin 9.7 gm/dL (13.0-17.0); Mean Corpuscular Hemoglobin 28.7 pg (27.0-34.0); Mean Corpuscular Volume 86.9 fL (80.0-100.0); Mean Platelet Volume 5.9 fL (7.0-11.0); Platelet Count 215 th/mm3 (150-450); Red Blood Count 3.38 mil/mm3 (4.50-5.90); Red Cell Distribution Width 16.4 % (11.6-17.2); White Blood Count 5.4 th/mm3 (4.0-11.0)
[2018-01-28 08:19] LABS: Albumin 1.9 g/dL (3.4-5.0); Calcium 7.9 mg/dL (8.5-10.1); Carbon Dioxide 24.3 meq/L (21.0-32.0)
[2018-01-28 08:55] LABS: Potassium 3.5 meq/L (3.5-5.1)
[2018-01-28] MEDS: Ferrous Sulfate 325 MG Tablet PO SCH (08:58)
--- NOTE | 2018-01-28 10:53 | P.PNID ---
Subjective Remarks: Patient is a 77-year-old male, a resident of a longterm, with chronic indwelling Roman catheter for obstructive uropathy, brought into the hospital for evaluation of decreased level of consciousness. According to the notes as a baseline patient is normally alert and oriented 3. There was no mention of any fever or chills, or any respiratory complaint. No mention of any nausea or vomiting or diarrhea. His Roman catheter gets changed once a month. On presentation he was lethargic. His WBC was 11.3. Highest temperature has been 99.5. Urinalysis showed significant pyuria. CT of the abdomen and pelvis showed chronic hydronephrosis and no stones seen. This is stable compared to his imaging studies from November 2017 where it showed the hydronephrosis. Patient was started on antibiotics. His mental status improved. Patient also has chronic kidney disease. His urine culture is now reported as growing Pseudomonas. Infectious disease consultation has been requested to evaluate the patient Notes reviewed Temps ok WBC down to normal Creatinine improving Repeat UA better BC negative Antibiotics: Azactam Lines: PIV no evid of infection Past Medical History: Afib Amputated great toe Anemia BPH (benign prostatic hyperplasia) CHF (congestive heart failure) CKD (chronic kidney disease) COPD (chronic obstructive pulmonary disease) Dementia Depression Diabetes GERD (gastroesophageal reflux disease) Gout HTN (hypertension) Hyperlipemia Hypertension MRSA (methicillin resistant Staphylococcus aureus) PEG (percutaneous endoscopic gastrostomy) adjustment/replacement/removal Pneumonia Sepsis UTI (urinary tract infection) Hx arthroscopy Allergies/Adverse Reactions: Allergies cephalexin Allergy (Unknown, Verified 01/24/18 11:42) Hives Influenza Virus Vaccines Allergy (Unknown, Verified 01/24/18 11:42) Hives levofloxacin Allergy (Unknown, Verified 01/24/18 11:42) Hives moxifloxacin Allergy (Unknown, Verified 01/24/18 11:42) Hives Objective Vital Signs 01/27/18 12:08 01/27/18 15:02 01/27/18 16:00 Temperature 98.2 F 98.4 F Pulse Rate 75 71 73 Respiratory Rate 19 19 Blood Pressure 143/55 H 138/71 Pulse Oximetry 95 96 01/27/18 22:15 01/28/18 00:40 01/28/18 05:45 Temperature 98 F 97 F L 98.1 F Pulse Rate 60 68 64 Respiratory Rate 18 19 20 Blood Pressure 145/65 H 132/62 130/67 Pulse Oximetry 99 98 98 01/28/18 08:00 Temperature 97.4 F L Pulse Rate 76 Respiratory Rate 12 Blood Pressure 176/74 H Pulse Oximetry 97 Intake & Output 01/27/18 01/28/18 01/28/18 18:59 06:59 18:59 Intake Total 560 / 560 1800 / 1800 Output Total 450 / 450 1652 / 1652 Balance 110 / 110 148 / 148 Weight 236.7 kg Intake: IV 700 / 700 D5W Inj 500 ML @ 50 mls/hr IV. 500 / 500 CONT .Q10H RITESH Rx#:[id number] Merrem Inj 500 MG In NS Inj 100 200 / 200 ML @ 200 mls/hr IV.SIG Q12H RITESH Rx#:[id number] Oral 560 / 560 1100 / 1100 Output: Urine 450 / 450 1650 / 1650 Stool 2 / 2 Other: Date of Last Bowel Movement 01/26/18 01/26/18 # Bowel Movements 1 01/27/18 21:33 Clean Catch Urine Urine Culture - Pending 01/24/18 09:45 Blood - Peripheral Aerobic Blood Culture - Preliminary No growth in 3 days 01/24/18 09:45 Blood - Peripheral Anaerobic Blood Culture - Preliminary No growth in 3 days 01/24/18 10:00 Blood - Peripheral Aerobic Blood Culture - Preliminary No growth in 3 days 01/24/18 10:00 Blood - Peripheral Anaerobic Blood Culture - Preliminary No growth in 3 days 01/24/18 10:37 Catheterized Urine Urine Culture - Final Pseudomonas aeruginosa Lab - Hematology Results 01/27/18 01/28/18 07:17 06:51 WBC 6.9 5.4 RBC 3.27 L 3.38 L Hgb 9.3 L 9.7 L Hct 28.7 L 29.4 L MCV 87.8 86.9 MCH 28.5 28.7 MCHC 32.4 33.0 RDW 16.7 16.4 Plt Count 252 215 MPV 6.1 L 5.9 L Lab - Chemistry Results 01/26/18 01/26/18 01/26/18 11:48 16:22 21:19 Sodium Potassium Chloride Carbon Dioxide Anion Gap BUN Creatinine Estimated GFR POC Glucose 141 H 94 131 H Random Glucose Calcium Phosphorus Iron TIBC % Saturation Albumin 01/27/18 01/27/18 01/27/18 07:17 07:17 07:54 Sodium 149 H Potassium 3.6 Chloride 119 H Carbon Dioxide 22.9 Anion Gap 7 BUN 40 H Creatinine 3.54 H Estimated GFR 17 L POC Glucose 137 H Random Glucose 120 H Calcium 8.2 L Phosphorus Iron 41 L TIBC 207 L % Saturation 19.8 L Albumin 01/27/18 01/27/18 01/27/18 11:25 16:34 20:36 Sodium Potassium Chloride Carbon Dioxide Anion Gap BUN Creatinine Estimated GFR POC Glucose 146 H 102 130 H Random Glucose Calcium Phosphorus Iron TIBC % Saturation Albumin 01/28/18 01/28/18 06:51 07:46 Sodium 145 Potassium 3.5 Chloride 112 H Carbon Dioxide 24.3 Anion Gap 9 BUN 30 H Creatinine 2.87 H Estimated GFR 22 L POC Glucose 93 Random Glucose 86 Calcium 7.9 L Phosphorus 2.0 L Iron TIBC % Saturation Albumin 1.9 L Imaging: ITS Impressions Abdomen/Pelvis CT 01/24/18 00:00 CONCLUSION: 1. There is hydronephrosis in both kidneys with hydroureter without definite stones not significantly changed since the prior examination and there are gas filled inside the bladder present on the prior examination of uncertain etiology. If the patient has not had instrumentation, possibility of infectious process or colovesical fistula is not excluded. 2. There is soft tissue density adjacent to descending aorta which is densely calcified not present on the prior exam. It could potentially be mass or adenopathy, however possibility of contained hemorrhage at this site should be entertained and not adequately characterized. May consider further characterization with CT angiogram of aorta. Chest X-Ray 01/24/18 09:42 CONCLUSION: Underinflated examination with atelectasis at the lung bases. Otherwise, stable examination. Head CT 01/24/18 09:42 CONCLUSION: 1. Stable noncontrast head CT. No acute intracranial abnormality is identified. 2. Stable chronic findings include generalized atrophy and mild periventricular white matter low-attenuation characteristic of chronic microvascular ischemia. Physical Exam: GENERAL: Patient is an obese, well-developed male, awake and alert, oriented x 3, NAD SKIN: Cool and dry. No generalized rash, no ecchymoses and no evidence of embolic lesions. HEAD: Atraumatic. Normocephalic. No temporal wasting, or tenderness. EYES: [place] conjunctiva. No petechia or hemorrhage. Pupils equal, round and reactive to light. Extraocular movements full and intact. No scleral icterus. No injection or drainage. EARS, NOSE AND THROAT: Nose without bleeding or purulent nasal discharge. No sinus tenderness. Mucous membranes pink and moist. NECK: Trachea midline. Supple and not tender, no meningeal signs CARDIOVASCULAR: Regular rate and rhythm. No murmurs, rubs or gallops heard RESPIRATORY: Clear to auscultation. Breath sounds equal bilaterally. No rales , wheezing or rhonchi ABDOMEN: Soft, non-tender, nondistended. Bowel sounds present and normoactive. No guarding. No rebound. No organomegaly. EXTREMITIES: No clubbing, cyanosis. RLE looks bigger compared to LLE. No calf tenderness. Well perfused and warm. Amputation site R foot well healed. NEUROLOGICAL: Awake and alert. Cranial nerves grossly intact. Moving all extremities PSYCHIATRIC: Normal affect, calm and cooperative. : Roman in place LINE: No evidence of infection Assessment and Plan - Plan Impression Sepsis on admsission due to UTI Roman associated UTI, C/S PSAE Chronic obstructive uropathy with chronic bilateral hydronephrosis CKD due to chronic obstructive uropathy Encephalopathy due to sepsis, resolved Recommendation Continue IV Azactam Follow repeat UA and C/S - will decide on course of Rx once repeat UA seen May need change of roman more frequently Monitor progress Will likely be able to use oral Abx on D/C to complete Rx D/W NIA
[2018-01-28] MEDS ORDERED: Potassium Phosphate 500 MG Soluble Tablet PO ONE (11:00)
--- NOTE | 2018-01-28 11:25 | P.PNNP ---
Subjective Interval history: More alert today. Renal function is better. Non oliguric. <ShaliniMariza chambers Itz - Last Filed: 01/28/18 11:19> Physical Exam Vital signs: Vital Signs 01/27/18 12:08 01/27/18 15:02 01/27/18 16:00 Temperature 98.2 F 98.4 F Pulse Rate 75 71 73 Respiratory Rate 19 19 Blood Pressure 143/55 H 138/71 Pulse Oximetry 95 96 01/27/18 22:15 01/28/18 00:40 01/28/18 05:45 Temperature 98 F 97 F L 98.1 F Pulse Rate 60 68 64 Respiratory Rate 18 19 20 Blood Pressure 145/65 H 132/62 130/67 Pulse Oximetry 99 98 98 01/28/18 08:00 01/28/18 09:00 Temperature 97.4 F L Pulse Rate 76 Respiratory Rate 12 12 Blood Pressure 176/74 H Pulse Oximetry 97 Intake & Output 01/27/18 01/28/18 01/28/18 18:59 06:59 18:59 Intake Total 560 / 560 1800 / 1800 Output Total 450 / 450 1652 / 1652 Balance 110 / 110 148 / 148 Weight 236.7 kg Intake: IV 700 / 700 D5W Inj 500 ML @ 50 mls/hr IV. 500 / 500 CONT .Q10H RITESH Rx#:[id number] Merrem Inj 500 MG In NS Inj 100 200 / 200 ML @ 200 mls/hr IV.SIG Q12H RITESH Rx#:[id number] Oral 560 / 560 1100 / 1100 Output: Urine 450 / 450 1650 / 1650 Stool 2 / 2 Other: Date of Last Bowel Movement 01/26/18 01/26/18 01/26/18 # Bowel Movements 1 - Constitutional no acute distress, chronically ill appearing - Routine HEENT Exam Head: Present: normocephalic Eye: Present: EOMI ENT: Present: mucous membranes moist - Routine Neck Exam Present: supple, full ROM. Absent: JVD - Routine Respiratory Exam Present: CTA bilaterally. Absent: accessory muscle use - Routine Cardiovascular Exam Present: RRR, S1, S2 - Routine Abdominal Exam Present: soft, normoactive bowel sounds Comments: suprapubic roman - Routine Skin Exam Present: intact, warm - Routine Neurological Exam Present: alert, oriented X3 - Detailed Neurological Exam: Coma Scale Eye Opening: Spontaneous Verbal Response: Oriented Motor Response: Obey commands [place] Coma Scale Total: 15 - Routine Psychiatric Exam Present: normal affect, normal thought process - Urinary Catheter Management Indwelling Urethral Catheter Cath placed during this visit: yes Urethral indwelling: Yes Reason for continuing: Chronic Urinary Retention Insertion date: 01/24/18 Insertion time: 10:50 <Mariza Loay - Last Filed: 01/28/18 11:19> Vital signs: Vital Signs 01/27/18 22:15 01/28/18 00:40 01/28/18 05:45 Temperature 98 F 97 F L 98.1 F Pulse Rate 60 68 64 Respiratory Rate 18 19 20 Blood Pressure 145/65 H 132/62 130/67 Pulse Oximetry 99 98 98 01/28/18 08:00 01/28/18 09:00 01/28/18 12:00 Temperature 97.4 F L 97.3 F L Pulse Rate 76 85 Respiratory Rate 12 12 13 Blood Pressure 176/74 H 176/74 H Pulse Oximetry 97 98 01/28/18 16:00 Temperature 97.1 F L Pulse Rate 75 Respiratory Rate 13 Blood Pressure 170/65 H Pulse Oximetry 99 Intake & Output 01/28/18 01/28/18 01/29/18 06:59 18:59 06:59 Intake Total 1800 / 1800 1400 / 1400 Output Total 1652 / 1652 1500 / 1500 Balance 148 / 148 -100 / -100 Weight 236.7 kg Intake: IV 700 / 700 500 / 500 D5W Inj 500 ML @ 50 mls/hr IV. 500 / 500 500 / 500 CONT .Q10H RITESH Rx#:[id number] Merrem Inj 500 MG In NS Inj 100 200 / 200 ML @ 200 mls/hr IV.SIG Q12H RITESH Rx#:[id number] Oral 1100 / 1100 900 / 900 Output: Urine 1650 / 1650 1500 / 1500 Stool 2 / 2 Other: Date of Last Bowel Movement 01/26/18 01/26/18 # Bowel Movements 1 0 # Incontinent Bowel Movements 1 - Urinary Catheter Management Indwelling Urethral Catheter Cath placed during this visit: no <Curt Bal - Last Filed: 01/28/18 20:39> Assessment and Plan - Assessment (1) Acute kidney injury superimposed on chronic kidney disease Code(s): N17.9 - Acute kidney failure, unspecified; N18.9 - Chronic kidney disease, unspecified Status: Acute Plan: SHAHLA on CKD 4. Baseline creatinine 2.8-3. Renal function improved. Repeat labs daily. Hypernatremia improved. Monitor urine output, has a Roman catheter Avoid nephrotoxic agents PO fluids encouraged (2) Urinary tract infection associated with indwelling urethral catheter Code(s): T83.511A - Infection and inflammatory reaction due to indwelling urethral catheter, initial encounter; N39.0 - Urinary tract infection, site not specified Status: Acute Qualifiers: Encounter type: initial encounter Qualified Code(s): T83.511A - Infection and inflammatory reaction due to indwelling urethral catheter, initial encounter ; N39.0 - Urinary tract infection, site not specified Plan: Unclear if the Roman catheter was replaced since admission. Should be changed more than monthly. Antibiotics include meropenem for Pseudomonas UTI. ID has evaluated. (3) Diabetes Code(s): E11.9 - Type 2 diabetes mellitus without complications Status: Acute Qualifiers: Diabetes mellitus type: type 2 Diabetes mellitus senior care insulin use: with salvage determiner use Diabetes mellitus complication status: with kidney complications Diabetes mellitus complication detail: with chronic kidney disease Chronic kidney disease stage: stage 5, not on chronic dialysis Qualified Code(s): E11.22 - Type 2 diabetes mellitus with diabetic chronic kidney disease; N18.5 - Chronic kidney disease, stage 5; Z79.4 - terminal operator ( current) use of insulin Plan: Insulin coverage, to maintain blood glucose between 140 and 180. (4) Anemia Code(s): D64.9 - Anemia, unspecified Status: Acute Plan: Iron deficiency present, however avoid Venofer given Sepsis. Start oral iron. <Mariza Loya - Last Filed: 01/28/18 11:19> - Assessment (1) Acute kidney injury superimposed on chronic kidney disease Code(s): N17.9 - Acute kidney failure, unspecified; N18.9 - Chronic kidney disease, unspecified Status: Acute (2) Urinary tract infection associated with indwelling urethral catheter Code(s): T83.511A - Infection and inflammatory reaction due to indwelling urethral catheter, initial encounter; N39.0 - Urinary tract infection, site not specified Status: Acute Qualifiers: Encounter type: initial encounter Qualified Code(s): T83.511A - Infection and inflammatory reaction due to indwelling urethral catheter, initial encounter ; N39.0 - Urinary tract infection, site not specified (3) Diabetes Code(s): E11.9 - Type 2 diabetes mellitus without complications Status: Acute Qualifiers: Diabetes mellitus type: type 2 Diabetes mellitus salvage determiner insulin use: with salvage determiner use Diabetes mellitus complication status: with kidney complications Diabetes mellitus complication detail: with chronic kidney disease Chronic kidney disease stage: stage 5, not on chronic dialysis Qualified Code(s): E11.22 - Type 2 diabetes mellitus with diabetic chronic kidney disease; N18.5 - Chronic kidney disease, stage 5; Z79.4 - USP ( current) use of insulin (4) Anemia Code(s): D64.9 - Anemia, unspecified Status: Acute - Attending Attestation patient was seen and examined. Agree with above assessment and plan. Patient's renal function has improved. He can be discharged from renal standpoint. <Curt Bal - Last Filed: 01/28/18 20:39>
--- NOTE | 2018-01-28 11:27 | P.PNFP ---
Subjective Interval history: Patient seen and examined this morning. No complaints of nausea, vomiting, fever, chills abdominal pain, chest pain, shortness of breath , back pain. No other complaints today. <Lee Bejarano - 01/28/18 11:27> Results - Labs Result diagrams: 01/28/18 06:51 01/28/18 06:51 <FredericFeliz - 01/28/18 16:24> Abnormal lab results 01/27/18 01/27/18 01/28/18 Range/Units 20:36 21:33 06:51 RBC (4.50-5.90) mil/mm3 Hgb (13.0-17.0) gm/dL Hct (39.0-51.0) % MPV (7.0-11.0) fL Chloride 112 H (98-107) meq/L BUN 30 H (7-18) mg/dL Creatinine 2.87 H (0.60-1.30) mg/dL Estimated GFR 22 L (>89) mL/min POC Glucose 130 H (68-110) mg/dl Calcium 7.9 L (8.5-10.1) mg/dL Phosphorus 2.0 L (2.5-4.9) mg/dL Albumin 1.9 L (3.4-5.0) g/dL Urine Clarity Hazy H (Clear) Urine Protein 100 H (Neg-Trace) mg/dL Urine Occult Blood Large H (Negative) Ur Leukocyte Esterase Large H (Negative) Urine RBC 15 H (0-3) /hpf Urine WBC 51 H (0-5) /hpf Urine Bacteria Rare H (None) /hpf Urine Mucus Few H (Occasional) /lpf 01/28/18 Range/Units 06:51 RBC 3.38 L (4.50-5.90) mil/mm3 Hgb 9.7 L (13.0-17.0) gm/dL Hct 29.4 L (39.0-51.0) % MPV 5.9 L (7.0-11.0) fL Chloride (98-107) meq/L BUN (7-18) mg/dL Creatinine (0.60-1.30) mg/dL Estimated GFR (>89) mL/min POC Glucose (68-110) mg/dl Calcium (8.5-10.1) mg/dL Phosphorus (2.5-4.9) mg/dL Albumin (3.4-5.0) g/dL Urine Clarity (Clear) Urine Protein (Neg-Trace) mg/dL Urine Occult Blood (Negative) Ur Leukocyte Esterase (Negative) Urine RBC (0-3) /hpf Urine WBC (0-5) /hpf Urine Bacteria (None) /hpf Urine Mucus (Occasional) /lpf Short CBC 01/28/18 Range/Units 06:51 WBC 5.4 (4.0-11.0) th/mm3 Hgb 9.7 L (13.0-17.0) gm/dL Hct 29.4 L (39.0-51.0) % Plt Count 215 (150-450) th/mm3 BMP 01/28/18 06:51 Sodium 145 Potassium 3.5 Chloride 112 H Carbon Dioxide 24.3 BUN 30 H Creatinine 2.87 H Calcium 7.9 L Liver Function 01/28/18 Range/Units 06:51 Albumin 1.9 L (3.4-5.0) g/dL Urine 01/27/18 Range/Units 21:33 Urine Color Yellow (Yellw/Straw) Urine Clarity Hazy H (Clear) Urine pH 6.0 (5.0-8.5) Ur Specific [place] 1.011 (1.002-1.035) Urine Protein 100 H (Neg-Trace) mg/dL Urine Glucose (UA) 50 (Negative) mg/dL <Feliz De La Garza - 01/28/18 16:24> Abnormal lab results 01/27/18 01/27/18 01/27/18 Range/Units 11:25 20:36 21:33 RBC (4.50-5.90) mil/mm3 Hgb (13.0-17.0) gm/dL Hct (39.0-51.0) % MPV (7.0-11.0) fL Chloride (98-107) meq/L BUN (7-18) mg/dL Creatinine (0.60-1.30) mg/dL Estimated GFR (>89) mL/min POC Glucose 146 H 130 H (68-110) mg/dl Calcium (8.5-10.1) mg/dL Phosphorus (2.5-4.9) mg/dL Albumin (3.4-5.0) g/dL Urine Clarity Hazy H (Clear) Urine Protein 100 H (Neg-Trace) mg/dL Urine Occult Blood Large H (Negative) Ur Leukocyte Esterase Large H (Negative) Urine RBC 15 H (0-3) /hpf Urine WBC 51 H (0-5) /hpf Urine Bacteria Rare H (None) /hpf Urine Mucus Few H (Occasional) /lpf 01/28/18 01/28/18 Range/Units 06:51 06:51 RBC 3.38 L (4.50-5.90) mil/mm3 Hgb 9.7 L (13.0-17.0) gm/dL Hct 29.4 L (39.0-51.0) % MPV 5.9 L (7.0-11.0) fL Chloride 112 H (98-107) meq/L BUN 30 H (7-18) mg/dL Creatinine 2.87 H (0.60-1.30) mg/dL Estimated GFR 22 L (>89) mL/min POC Glucose (68-110) mg/dl Calcium 7.9 L (8.5-10.1) mg/dL Phosphorus 2.0 L (2.5-4.9) mg/dL Albumin 1.9 L (3.4-5.0) g/dL Urine Clarity (Clear) Urine Protein (Neg-Trace) mg/dL Urine Occult Blood (Negative) Ur Leukocyte Esterase (Negative) Urine RBC (0-3) /hpf Urine WBC (0-5) /hpf Urine Bacteria (None) /hpf Urine Mucus (Occasional) /lpf Short CBC 01/28/18 Range/Units 06:51 WBC 5.4 (4.0-11.0) th/mm3 Hgb 9.7 L (13.0-17.0) gm/dL Hct 29.4 L (39.0-51.0) % Plt Count 215 (150-450) th/mm3 BMP 01/28/18 06:51 Sodium 145 Potassium 3.5 Chloride 112 H Carbon Dioxide 24.3 BUN 30 H Creatinine 2.87 H Calcium 7.9 L Liver Function 01/28/18 Range/Units 06:51 Albumin 1.9 L (3.4-5.0) g/dL Urine 01/27/18 Range/Units 21:33 Urine Color Yellow (Yellw/Straw) Urine Clarity Hazy H (Clear) Urine pH 6.0 (5.0-8.5) Ur Specific [place] 1.011 (1.002-1.035) Urine Protein 100 H (Neg-Trace) mg/dL Urine Glucose (UA) 50 (Negative) mg/dL <Lee Bejarano - 01/28/18 11:27> Physical Exam Vital signs: Vital Signs 01/27/18 22:15 01/28/18 00:40 01/28/18 05:45 Temperature 98 F 97 F L 98.1 F Pulse Rate 60 68 64 Respiratory Rate 18 19 20 Blood Pressure 145/65 H 132/62 130/67 Pulse Oximetry 99 98 98 01/28/18 08:00 01/28/18 09:00 01/28/18 12:00 Temperature 97.4 F L 97.3 F L Pulse Rate 76 85 Respiratory Rate 12 12 13 Blood Pressure 176/74 H 176/74 H Pulse Oximetry 97 98 Intake & Output 01/27/18 01/28/18 01/28/18 18:59 06:59 18:59 Intake Total 560 / 560 1800 / 1800 500 / 500 Output Total 450 / 450 1652 / 1652 Balance 110 / 110 148 / 148 500 / 500 Weight 236.7 kg Intake: IV 700 / 700 500 / 500 D5W Inj 500 ML @ 50 mls/hr IV. 500 / 500 500 / 500 CONT .Q10H RITESH Rx#:[id number] Merrem Inj 500 MG In NS Inj 100 200 / 200 ML @ 200 mls/hr IV.SIG Q12H RITESH Rx#:[id number] Oral 560 / 560 1100 / 1100 Output: Urine 450 / 450 1650 / 1650 Stool 2 / 2 Other: Date of Last Bowel Movement 01/26/18 01/26/18 01/26/18 # Bowel Movements 1 <Feliz De La Garza - 01/28/18 16:24> Vital Signs 01/27/18 12:08 01/27/18 15:02 01/27/18 16:00 Temperature 98.2 F 98.4 F Pulse Rate 75 71 73 Respiratory Rate 19 19 Blood Pressure 143/55 H 138/71 Pulse Oximetry 95 96 01/27/18 22:15 01/28/18 00:40 01/28/18 05:45 Temperature 98 F 97 F L 98.1 F Pulse Rate 60 68 64 Respiratory Rate 18 19 20 Blood Pressure 145/65 H 132/62 130/67 Pulse Oximetry 99 98 98 01/28/18 08:00 01/28/18 09:00 Temperature 97.4 F L Pulse Rate 76 Respiratory Rate 12 12 Blood Pressure 176/74 H Pulse Oximetry 97 Intake & Output 01/27/18 01/28/18 01/28/18 18:59 06:59 18:59 Intake Total 560 / 560 1800 / 1800 Output Total 450 / 450 1652 / 1652 Balance 110 / 110 148 / 148 Weight 236.7 kg Intake: IV 700 / 700 D5W Inj 500 ML @ 50 mls/hr IV. 500 / 500 CONT .Q10H RITESH Rx#:[id number] Merrem Inj 500 MG In NS Inj 100 200 / 200 ML @ 200 mls/hr IV.SIG Q12H RITESH Rx#:[id number] Oral 560 / 560 1100 / 1100 Output: Urine 450 / 450 1650 / 1650 Stool 2 / 2 Other: Date of Last Bowel Movement 01/26/18 01/26/18 01/26/18 # Bowel Movements 1 <Lee Bejarano 01/28/18 11:27> Narrative: GENERAL: Laying in bed, no acute distress. SKIN: Warm and dry. Yang catheter in place. HEAD: Atraumatic. Normocephalic. EYES: Pupils equal and round. No scleral icterus. No injection or drainage. ENT: No nasal bleeding or discharge. Mucous membranes pink and moist. NECK: Trachea midline. No JVD. CARDIOVASCULAR: Regular rate and rhythm. RESPIRATORY: No accessory muscle use. Clear to auscultation. Breath sounds equal bilaterally. GASTROINTESTINAL: Abdomen soft, non-tender, nondistended. Hepatic and splenic margins not palpable. MUSCULOSKELETAL: Extremities without clubbing, cyanosis, or edema. No obvious deformities. NEUROLOGICAL: Awake and alert. No obvious cranial nerve deficits. Normal speech. <Lee Bejarano 01/28/18 11:27> - Urinary Catheter Management Indwelling Urethral Catheter Cath placed during this visit: no <Feliz De La Garza 01/28/18 16:24> yes <Lee Bejarano 01/28/18 11:27> Urethral indwelling: Yes <Lee Bejarano 01/28/18 11:27> Reason for continuing: Chronic Urinary Retention <Lee Bejarano 01/28/18 11:27> Insertion date: 01/24/18 <Lee Bejarano - 01/28/18 11:27> Insertion time: 10:50 <Lee Bejarano - 01/28/18 11:27> Assessment and Plan - Assessment (1) Urinary tract infection associated with indwelling urethral catheter Code(s): T83.511A - Infection and inflammatory reaction due to indwelling urethral catheter, initial encounter; N39.0 - Urinary tract infection, site not specified Status: Acute (2) Altered mental status Code(s): R41.82 - Altered mental status, unspecified Status: Acute (3) Acute kidney injury superimposed on chronic kidney disease Code(s): N17.9 - Acute kidney failure, unspecified; N18.9 - Chronic kidney disease, unspecified Status: Acute (4) Hypertension Code(s): I10 - Essential (primary) hypertension Status: Acute (5) Diabetes Code(s): E11.9 - Type 2 diabetes mellitus without complications Status: Acute (6) Gout Code(s): M10.9 - Gout, unspecified Status: Acute (7) Depression Code(s): F32.9 - Major depressive disorder, single episode, unspecified Status : Acute (8) Nutrition, metabolism, and development symptoms Code(s): R63.8 - Other symptoms and signs concerning food and fluid intake Status: Acute <Feliz De La Garza - 01/28/18 16:24> (1) Urinary tract infection associated with indwelling urethral catheter Code(s): T83.511A - Infection and inflammatory reaction due to indwelling urethral catheter, initial encounter; N39.0 - Urinary tract infection, site not specified Status: Acute Plan: Patient has indwelling Yang catheter, UTI with Pseudomonas. Infectious disease consulted for antibiotic selection. -Started on Azactam 01/28 per ID -Monitor CBC -Monitor vitals (2) Altered mental status Code(s): R41.82 - Altered mental status, unspecified Status: Acute Plan: Altered mental status on admission, improving. -See plan for UTI above (3) Acute kidney injury superimposed on chronic kidney disease Code(s): N17.9 - Acute kidney failure, unspecified; N18.9 - Chronic kidney disease, unspecified Status: Acute Plan: Patient with stage IV chronic kidney disease, baseline creatinine of 3. - Continue IV fluids with normal saline - Avoid any nephrotoxic agents - Hold Plavix due to hematuria - Continue meropenem - Monitor BUN/creatinine - Monitor electrolytes replete as necessary (4) Hypertension Code(s): I10 - Essential (primary) hypertension Status: Acute Plan: History of hypertension, on amlodipine at home. Initially held for low normal blood pressure. Hypertensive during stay, restarted amlodipine. -Continue home amlodipine 5 mg daily (5) Diabetes Code(s): E11.9 - Type 2 diabetes mellitus without complications Status: Acute Plan: Patient is a known type II diabetic on home NovoLog. -Insulin sliding scale while inpatient (6) Gout Code(s): M10.9 - Gout, unspecified Status: Acute Plan: Patient with a past medical history of gout managed with allopurinol at home. No indication of acute gout attack at this time. -Hold allopurinol resume once taking po as it is preventative. no higher of a dose than 100 mg per day (7) Depression Code(s): F32.9 - Major depressive disorder, single episode, unspecified Status : Acute Plan: According to senior care patient suffers from depression. No previous psychiatric history at this time. -Hold any psychiatric medications until patient is alert, oriented, and arousable and able to be assessed. (8) Nutrition, metabolism, and development symptoms Code(s): R63.8 - Other symptoms and signs concerning food and fluid intake Status: Acute Plan: Fluids: Continue hydration with normal saline at 80 mL/h per nephrology Electrolytes: Replete as needed Nutrition: PO DVT prophylaxis: Heparin 5000 units SQ every 8 hours <Lee Bejarano - 01/28/18 11:20> - Attending Attestation Patient examined during medical rounds and case discussed with resident team I have read the above note and agree with the assessment/plan as discussed with me I was involved in all medical decision making for this patient Feliz De La Garza MD <Feliz De La Garza - 01/28/18 16:24> <Feliz De La Garza - Last Filed: 01/28/18 16:24> (1) Urinary tract infection associated with indwelling urethral catheter Qualifiers: Encounter type: initial encounter Qualified Code(s): T83.511A - Infection and inflammatory reaction due to indwelling urethral catheter, initial encounter ; N39.0 - Urinary tract infection, site not specified (2) Altered mental status Qualifiers: Altered mental status type: delirium Qualified Code(s): R41.0 - Disorientation, unspecified (5) Diabetes Qualifiers: Diabetes mellitus type: type 2 Diabetes mellitus intermediate insulin use: with medical terminologist use Diabetes mellitus complication status: with kidney complications Diabetes mellitus complication detail: with chronic kidney disease Chronic kidney disease stage: stage 5, not on chronic dialysis Qualified Code(s): E11.22 - Type 2 diabetes mellitus with diabetic chronic kidney disease; N18.5 - Chronic kidney disease, stage 5; Z79.4 - medical terminologist (current) use of insulin <Feliz De La Garza - Last Filed: 01/28/18 16:24> (1) Urinary tract infection associated with indwelling urethral catheter Qualifiers: Encounter type: initial encounter Qualified Code(s): T83.511A - Infection and inflammatory reaction due to indwelling urethral catheter, initial encounter ; N39.0 - Urinary tract infection, site not specified (2) Altered mental status Qualifiers: Altered mental status type: delirium Qualified Code(s): R41.0 - Disorientation, unspecified (5) Diabetes Qualifiers: Diabetes mellitus type: type 2 Diabetes mellitus intermediate insulin use: with medical terminologist use Diabetes mellitus complication status: with kidney complications Diabetes mellitus complication detail: with chronic kidney disease Chronic kidney disease stage: stage 5, not on chronic dialysis Qualified Code(s): E11.22 - Type 2 diabetes mellitus with diabetic chronic kidney disease; N18.5 - Chronic kidney disease, stage 5; Z79.4 - medical terminologist (current) use of insulin
[2018-01-28] MEDS: amLODIPine 5 MG Tablet PO SCH (12:25)
[2018-01-28] MEDS: Melatonin 5 MG Tablet PO PRN (23:03)
[2018-01-28] MEDS: Sodium Chloride 0.45 % Inj 1,000 ML IV.CONT SCH (23:04)
[2018-01-29] MEDS: Heparin - SQ 10,000 UNITS/ML Vial SQ SCH ×3 (06:22→22:46)
[2018-01-29] MEDS: amLODIPine 5 MG Tablet PO SCH (08:23)
[2018-01-29] MEDS: Ferrous Sulfate 325 MG Tablet PO SCH (08:23)
[2018-01-29] MEDS: Insulin NovoLOG Aspart Correctional Sugar Inj SQ SCH ×2 (08:24→13:40)
--- NOTE | 2018-01-29 11:31 | P.PNFP ---
Subjective Interval history: Patient seen and examined this morning. No acute events overnight. Patient denies any complaints or concerns this morning. Is wanting to go home. Denies any fever chills, no back pain, no abdominal pain. Denies any chest pain, shortness of breath, leg pain as well. <Jon Moreno aJyne - 01/29/18 11:31> Results - Labs Result diagrams: 01/28/18 06:51 01/28/18 06:51 <Feliz De La Garza - 01/29/18 15:28> Physical Exam Vital signs: Vital Signs 01/28/18 16:00 01/28/18 21:20 01/29/18 00:45 Temperature 97.1 F L 98.1 F 98.2 F Pulse Rate 75 86 88 Respiratory Rate 13 19 19 Blood Pressure 170/65 H 128/68 120/66 Pulse Oximetry 99 96 96 01/29/18 04:00 01/29/18 08:00 01/29/18 12:00 Temperature 98.7 F 98 F 98.3 F Pulse Rate 68 63 69 Respiratory Rate 21 19 18 Blood Pressure 139/63 129/69 Pulse Oximetry 96 98 97 Intake & Output 01/28/18 01/29/18 01/29/18 18:59 06:59 18:59 Intake Total 1500 / 1500 1725 / 1725 Output Total 1500 / 1500 2099 Balance 0 / 0 -375 / -375 Weight 236.7 kg 236.7 kg Intake: IV 600 / 600 100 / 100 D5W Inj 500 ML @ 50 mls/hr IV. 500 / 500 CONT .Q10H RITESH Rx#:[id number] Azactam Inj 1,000 MG In NS Inj 100 / 100 100 / 100 100 ML @ 200 mls/hr IV.SIG Q12H RITESH Rx#:[id number] Oral 900 / 900 1625 / 1625 Output: Urine 1500 / 1500 Urine Amount (Catheter) 2099 Indwelling Urethral Catheter 2099 Other: Date of Last Bowel Movement 01/26/18 01/26/18 # Bowel Movements 0 0 # Incontinent Bowel Movements 1 0 <Feliz De La Garza - 01/29/18 15:28> Vital Signs 01/28/18 12:00 01/28/18 16:00 01/28/18 21:20 Temperature 97.3 F L 97.1 F L 98.1 F Pulse Rate 85 75 86 Respiratory Rate 13 13 19 Blood Pressure 176/74 H 170/65 H 128/68 Pulse Oximetry 98 99 96 01/29/18 00:45 01/29/18 04:00 Temperature 98.2 F 98.7 F Pulse Rate 88 68 Respiratory Rate 19 21 Blood Pressure 120/66 Pulse Oximetry 96 96 Intake & Output 01/28/18 01/29/18 01/29/18 18:59 06:59 18:59 Intake Total 1500 / 1500 1725 / 1725 Output Total 1500 / 1500 2099 Balance 0 / 0 -375 / -375 Weight 236.7 kg Intake: IV 600 / 600 100 / 100 D5W Inj 500 ML @ 50 mls/hr IV. 500 / 500 CONT .Q10H RITESH Rx#:[id number] Azactam Inj 1,000 MG In NS Inj 100 / 100 100 / 100 100 ML @ 200 mls/hr IV.SIG Q12H RITESH Rx#:[id number] Oral 900 / 900 1625 / 1625 Output: Urine 1500 / 1500 Urine Amount (Catheter) 2099 Indwelling Urethral Catheter 2099 Other: Date of Last Bowel Movement 01/26/18 01/26/18 # Bowel Movements 0 0 # Incontinent Bowel Movements 1 0 <Jon Moreno - 01/29/18 11:31> Narrative: GENERAL: Laying in bed, no acute distress. SKIN: Warm and dry. Yang catheter in place. CARDIOVASCULAR: Regular rate and rhythm. RESPIRATORY: No accessory muscle use. Clear to auscultation. Breath sounds equal bilaterally. GASTROINTESTINAL: Abdomen soft, non-tender, nondistended. Hepatic and splenic margins not palpable. MUSCULOSKELETAL: Extremities without clubbing, cyanosis, or edema. NEUROLOGICAL: Awake and alert. Normal speech. <Jon Moreno - 01/29/18 11:31> - Urinary Catheter Management Indwelling Urethral Catheter Cath placed during this visit: no <Feliz De La Garza 01/29/18 15:28> yes <Jon Moreno 01/29/18 11:31> Urethral indwelling: Yes <Jon Moreno 01/29/18 11:31> Reason for continuing: Chronic Urinary Retention <Jon Moreno 01/29/18 11:31> Insertion date: 01/24/18 <Jon Moreno - 01/29/18 11:31> Insertion time: 10:50 <Jon Moreno - 01/29/18 11:31> Assessment and Plan - Assessment (1) Urinary tract infection associated with indwelling urethral catheter Code(s): T83.511A - Infection and inflammatory reaction due to indwelling urethral catheter, initial encounter; N39.0 - Urinary tract infection, site not specified Status: Acute (2) Altered mental status Code(s): R41.82 - Altered mental status, unspecified Status: Resolved (3) Acute kidney injury superimposed on chronic kidney disease Code(s): N17.9 - Acute kidney failure, unspecified; N18.9 - Chronic kidney disease, unspecified Status: Acute (4) Hypertension Code(s): I10 - Essential (primary) hypertension Status: Acute (5) Diabetes Code(s): E11.9 - Type 2 diabetes mellitus without complications Status: Acute (6) Gout Code(s): M10.9 - Gout, unspecified Status: Acute (7) Depression Code(s): F32.9 - Major depressive disorder, single episode, unspecified Status : Acute (8) Nutrition, metabolism, and development symptoms Code(s): R63.8 - Other symptoms and signs concerning food and fluid intake Status: Acute <Feliz De La Garza - 01/29/18 15:28> (1) Urinary tract infection associated with indwelling urethral catheter Code(s): T83.511A - Infection and inflammatory reaction due to indwelling urethral catheter, initial encounter; N39.0 - Urinary tract infection, site not specified Status: Acute Plan: Patient has indwelling Yang catheter, UTI with Pseudomonas. Infectious disease consulted for antibiotic selection. Repeat UA without any growth Will await ID's recs for antibiotics to go home with -Started on Azactam 01/28 per ID -Monitor CBC -Monitor vitals (2) Altered mental status Code(s): R41.82 - Altered mental status, unspecified Status: Resolved Plan: Altered mental status on admission, improved -See plan for UTI above (3) Acute kidney injury superimposed on chronic kidney disease Code(s): N17.9 - Acute kidney failure, unspecified; N18.9 - Chronic kidney disease, unspecified Status: Acute Plan: Patient with stage IV chronic kidney disease, baseline creatinine of 3. Nephrology consulted, cleared to be d/c home - Continue IV fluids with normal saline - Avoid any nephrotoxic agents - Hold Plavix due to hematuria - Continue meropenem - Monitor BUN/creatinine - Monitor electrolytes replete as necessary (4) Hypertension Code(s): I10 - Essential (primary) hypertension Status: Acute Plan: History of hypertension, on amlodipine at home. Initially held for low normal blood pressure. Hypertensive during stay, restarted amlodipine. -Continue home amlodipine 5 mg daily (5) Diabetes Code(s): E11.9 - Type 2 diabetes mellitus without complications Status: Acute Plan: Patient is a known type II diabetic on home NovoLog. -Insulin sliding scale while inpatient (6) Gout Code(s): M10.9 - Gout, unspecified Status: Acute Plan: Patient with a past medical history of gout managed with allopurinol at home. No indication of acute gout attack at this time. -Hold allopurinol resume once taking po as it is preventative. no higher of a dose than 100 mg per day (7) Depression Code(s): F32.9 - Major depressive disorder, single episode, unspecified Status : Acute Plan: According to [facility] patient suffers from depression. No previous psychiatric history at this time. -Hold any psychiatric medications until patient is alert, oriented, and arousable and able to be assessed. (8) Nutrition, metabolism, and development symptoms Code(s): R63.8 - Other symptoms and signs concerning food and fluid intake Status: Acute Plan: Fluids: Continue hydration with normal saline at 80 mL/h per nephrology Electrolytes: Replete as needed Nutrition: PO DVT prophylaxis: Heparin 5000 units SQ every 8 hours <Jon Moreno - 01/29/18 11:25> - Attending Attestation Patient examined independently and case discussed with resident physician I have read the above note and agree with the assessment/plan as discussed with me I was involved in all medical decision making for this patient Feliz De La Garza MD <Feliz De La Garza - 01/29/18 15:28> <BaronkateJon Godoy - Last Filed: 01/29/18 11:25> (1) Urinary tract infection associated with indwelling urethral catheter Qualifiers: Encounter type: initial encounter Qualified Code(s): T83.511A - Infection and inflammatory reaction due to indwelling urethral catheter, initial encounter ; N39.0 - Urinary tract infection, site not specified (2) Altered mental status Qualifiers: Altered mental status type: delirium Qualified Code(s): R41.0 - Disorientation, unspecified (5) Diabetes Qualifiers: Diabetes mellitus type: type 2 Diabetes mellitus stock worker insulin use: with stock worker use Diabetes mellitus complication status: with kidney complications Diabetes mellitus complication detail: with chronic kidney disease Chronic kidney disease stage: stage 5, not on chronic dialysis Qualified Code(s): E11.22 - Type 2 diabetes mellitus with diabetic chronic kidney disease; N18.5 - Chronic kidney disease, stage 5; 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 <Feliz De La Garza - Last Filed: 01/29/18 15:28> (1) Urinary tract infection associated with indwelling urethral catheter Qualifiers: Encounter type: initial encounter Qualified Code(s): T83.511A - Infection and inflammatory reaction due to indwelling urethral catheter, initial encounter ; N39.0 - Urinary tract infection, site not specified (2) Altered mental status Qualifiers: Altered mental status type: delirium Qualified Code(s): R41.0 - Disorientation, unspecified (5) Diabetes Qualifiers: Diabetes mellitus type: type 2 Diabetes mellitus stock worker insulin use: with penitentiary use Diabetes mellitus complication status: with kidney complications Diabetes mellitus complication detail: with chronic kidney disease Chronic kidney disease stage: stage 5, not on chronic dialysis Qualified Code(s): E11.22 - Type 2 diabetes mellitus with diabetic chronic kidney disease; N18.5 - Chronic kidney disease, stage 5; 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 <Jon Moreno - Last Filed: 01/29/18 11:25> (1) Urinary tract infection associated with indwelling urethral catheter Qualifiers: Encounter type: initial encounter Qualified Code(s): T83.511A - Infection and inflammatory reaction due to indwelling urethral catheter, initial encounter ; N39.0 - Urinary tract infection, site not specified (2) Altered mental status Qualifiers: Altered mental status type: delirium Qualified Code(s): R41.0 - Disorientation, unspecified (5) Diabetes Qualifiers: Diabetes mellitus type: type 2 Diabetes mellitus penitentiary insulin use: with penitentiary use Diabetes mellitus complication status: with kidney complications Diabetes mellitus complication detail: with chronic kidney disease Chronic kidney disease stage: stage 5, not on chronic dialysis Qualified Code(s): E11.22 - Type 2 diabetes mellitus with diabetic chronic kidney disease; N18.5 - Chronic kidney disease, stage 5; 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 <Feliz De La Garza - Last Filed: 01/29/18 15:28> (1) Urinary tract infection associated with indwelling urethral catheter Qualifiers: Encounter type: initial encounter Qualified Code(s): T83.511A - Infection and inflammatory reaction due to indwelling urethral catheter, initial encounter ; N39.0 - Urinary tract infection, site not specified (2) Altered mental status Qualifiers: Altered mental status type: delirium Qualified Code(s): R41.0 - Disorientation, unspecified (5) Diabetes Qualifiers: Diabetes mellitus type: type 2 Diabetes mellitus stock worker insulin use: with stock worker use Diabetes mellitus complication status: with kidney complications Diabetes mellitus complication detail: with chronic kidney disease Chronic kidney disease stage: stage 5, not on chronic dialysis Qualified Code(s): E11.22 - Type 2 diabetes mellitus with diabetic chronic kidney disease; N18.5 - Chronic kidney disease, stage 5; 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
--- NOTE | 2018-01-29 12:36 | P.PNNP ---
Subjective Interval history: No changes in condition. Pending labs from today. Excellent urine output. Possible discharge per patient. <Mariza Loya - Last Filed: 01/29/18 12:29> Physical Exam Vital signs: Vital Signs 01/28/18 16:00 01/28/18 21:20 01/29/18 00:45 Temperature 97.1 F L 98.1 F 98.2 F Pulse Rate 75 86 88 Respiratory Rate 13 19 19 Blood Pressure 170/65 H 128/68 120/66 Pulse Oximetry 99 96 96 01/29/18 04:00 Temperature 98.7 F Pulse Rate 68 Respiratory Rate 21 Blood Pressure Pulse Oximetry 96 Intake & Output 01/28/18 01/29/18 01/29/18 18:59 06:59 18:59 Intake Total 1500 / 1500 1725 / 1725 Output Total 1500 / 1500 2099 / 2100 Balance 0 / 0 -375 / -375 Weight 236.7 kg Intake: IV 600 / 600 100 / 100 D5W Inj 500 ML @ 50 mls/hr IV. 500 / 500 CONT .Q10H RITESH Rx#:[id number] Azactam Inj 1,000 MG In NS Inj 100 / 100 100 / 100 100 ML @ 200 mls/hr IV.SIG Q12H RITESH Rx#:[id number] Oral 900 / 900 1625 / 1625 Output: Urine 1500 / 1500 Urine Amount (Catheter) 2099 Indwelling Urethral Catheter 2099 Other: Date of Last Bowel Movement 01/26/18 01/26/18 # Bowel Movements 0 0 # Incontinent Bowel Movements 1 0 - Constitutional no acute distress, chronically ill appearing - Routine HEENT Exam Head: Present: normocephalic - Routine Neck Exam Present: supple, full ROM - Routine Respiratory Exam Present: CTA bilaterally. Absent: accessory muscle use - Routine Cardiovascular Exam Present: S1, S2 - Routine Abdominal Exam Present: soft, normoactive bowel sounds - Routine Extremities Exam Present: full ROM, normal capillary refill. Absent: edema - Routine Skin Exam Present: intact, warm - Routine Neurological Exam Present: alert, oriented X3, CN II-XII intact, moving all extremities - Detailed Neurological Exam: Coma Scale Eye Opening: Spontaneous Verbal Response: Oriented Motor Response: Obey commands [place] Coma Scale Total: 15 - Routine Psychiatric Exam Present: normal affect, normal thought process - Urinary Catheter Management Indwelling Urethral Catheter Cath placed during this visit: yes Urethral indwelling: Yes Reason for continuing: Chronic Urinary Retention Insertion date: 01/24/18 Insertion time: 10:50 <Mariza Loya - Last Filed: 01/29/18 12:29> Vital signs: Vital Signs 01/28/18 21:20 01/29/18 00:45 01/29/18 04:00 Temperature 98.1 F 98.2 F 98.7 F Pulse Rate 86 88 68 Respiratory Rate Blood Pressure 128/68 120/66 Pulse Oximetry 96 96 96 01/29/18 08:00 01/29/18 12:00 01/29/18 16:00 Temperature 98 F 98.3 F 98 F Pulse Rate 63 69 70 Respiratory Rate Blood Pressure 139/63 129/69 140/66 Pulse Oximetry 98 97 96 Intake & Output 01/29/18 01/29/18 01/30/18 06:59 18:59 06:59 Intake Total 1725 / 1725 Output Total 2099 500 / 500 Balance -375 / -375 -500 / -500 Weight 236.7 kg 236.7 kg Intake: IV 100 / 100 Azactam Inj 1,000 MG In NS Inj 100 / 100 100 ML @ 200 mls/hr IV.SIG Q12H RITESH Rx#:[id number] Oral 1625 / 1625 Output: Urine 500 / 500 Urine Amount (Catheter) 2099 Indwelling Urethral Catheter 2099 Other: Date of Last Bowel Movement 01/26/18 01/29/18 # Bowel Movements 0 1 # Incontinent Bowel Movements 0 - Urinary Catheter Management Indwelling Urethral Catheter Cath placed during this visit: no <Curt Bal - Last Filed: 01/29/18 19:44> Assessment and Plan - Assessment (1) Acute kidney injury superimposed on chronic kidney disease Code(s): N17.9 - Acute kidney failure, unspecified; N18.9 - Chronic kidney disease, unspecified Status: Acute Plan: SHAHLA on CKD 4. Baseline creatinine 2.8-3. Renal function had improved, pending results of renal panel from today. Overall condition improved. Hypernatremia also improved. Monitor urine output, has a (chronic suprapubic) Yang catheter Avoid nephrotoxic agents PO fluids encouraged, on 1/2 NS, can taper off. (2) Urinary tract infection associated with indwelling urethral catheter Code(s): T83.511A - Infection and inflammatory reaction due to indwelling urethral catheter, initial encounter; N39.0 - Urinary tract infection, site not specified Status: Acute Qualifiers: Encounter type: initial encounter Qualified Code(s): T83.511A - Infection and inflammatory reaction due to indwelling urethral catheter, initial encounter ; N39.0 - Urinary tract infection, site not specified Plan: Yang catheter was replaced since admission. Should be changed more than monthly per ID Antibiotics include Aztreonam for Pseudomonas UTI. ID has evaluated. (3) Diabetes Code(s): E11.9 - Type 2 diabetes mellitus without complications Status: Acute Qualifiers: Diabetes mellitus type: type 2 Diabetes mellitus fpc insulin use: with fpc use Diabetes mellitus complication status: with kidney complications Diabetes mellitus complication detail: with chronic kidney disease Chronic kidney disease stage: stage 5, not on chronic dialysis Qualified Code(s): E11.22 - Type 2 diabetes mellitus with diabetic chronic kidney disease; N18.5 - Chronic kidney disease, stage 5; Z79.4 - terminal operator ( current) use of insulin Plan: Insulin coverage, to maintain blood glucose between 140 and 180. (4) Anemia Code(s): D64.9 - Anemia, unspecified Status: Chronic Qualifiers: Anemia type: iron deficiency Iron deficiency anemia type: inadequate dietary iron intake Qualified Code(s): D50.8 - Other iron deficiency anemias Plan: Iron deficiency present, however avoid Venofer given Sepsis. On oral iron. - Plan Cleared for discharge from renal perspective. We will follow in CKD clinic. <Mariza Loya - Last Filed: 01/29/18 12:29> - Assessment (1) Acute kidney injury superimposed on chronic kidney disease Code(s): N17.9 - Acute kidney failure, unspecified; N18.9 - Chronic kidney disease, unspecified Status: Acute (2) Urinary tract infection associated with indwelling urethral catheter Code(s): T83.511A - Infection and inflammatory reaction due to indwelling urethral catheter, initial encounter; N39.0 - Urinary tract infection, site not specified Status: Acute Qualifiers: Encounter type: initial encounter Qualified Code(s): T83.511A - Infection and inflammatory reaction due to indwelling urethral catheter, initial encounter ; N39.0 - Urinary tract infection, site not specified (3) Diabetes Code(s): E11.9 - Type 2 diabetes mellitus without complications Status: Acute Qualifiers: Diabetes mellitus type: type 2 Diabetes mellitus ferry terminal agent insulin use: with fpc use Diabetes mellitus complication status: with kidney complications Diabetes mellitus complication detail: with chronic kidney disease Chronic kidney disease stage: stage 5, not on chronic dialysis Qualified Code(s): E11.22 - Type 2 diabetes mellitus with diabetic chronic kidney disease; N18.5 - Chronic kidney disease, stage 5; Z79.4 - long-term ( current) use of insulin (4) Anemia Code(s): D64.9 - Anemia, unspecified Status: Chronic Qualifiers: Anemia type: iron deficiency Iron deficiency anemia type: inadequate dietary iron intake Qualified Code(s): D50.8 - Other iron deficiency anemias - Attending Attestation patient was seen and examined. Agree with above assessment and plan. <Curt Bal - Last Filed: 01/29/18 19:44>
--- NOTE | 2018-01-29 15:16 | P.PNID ---
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 According to the notes as a baseline patient is normally alert and oriented 3. There was no mention of any fever or chills, or any respiratory complaint. No mention of any nausea or vomiting or diarrhea. His Roman catheter gets changed once a month. On presentation he was lethargic. His WBC was 11.3. Highest temperature has been 99.5. Urinalysis showed significant pyuria. CT of the abdomen and pelvis showed chronic hydronephrosis and no stones seen. This is stable compared to his imaging studies from November 2017 where it showed the hydronephrosis. Patient was started on antibiotics. His mental status improved. Patient also has chronic kidney disease. His urine culture is now reported as growing Pseudomonas. Infectious disease consultation has been requested to evaluate the patient Notes reviewed Temps ok Anxious for D/C WBC down to normal Creatinine improving Repeat UA better Repeat UC negative BC negative Antibiotics: Azactam Lines: PIV no evid of infection Past Medical History: Afib Amputated great toe Anemia BPH (benign prostatic hyperplasia) CHF (congestive heart failure) CKD (chronic kidney disease) COPD (chronic obstructive pulmonary disease) Dementia Depression Diabetes GERD (gastroesophageal reflux disease) Gout HTN (hypertension) Hyperlipemia Hypertension MRSA (methicillin resistant Staphylococcus aureus) PEG (percutaneous endoscopic gastrostomy) adjustment/replacement/removal Pneumonia Sepsis UTI (urinary tract infection) Hx arthroscopy Allergies/Adverse Reactions: Allergies cephalexin Allergy (Unknown, Verified 01/24/18 11:42) Hives Influenza Virus Vaccines Allergy (Unknown, Verified 01/24/18 11:42) Hives levofloxacin Allergy (Unknown, Verified 01/24/18 11:42) Hives moxifloxacin Allergy (Unknown, Verified 01/24/18 11:42) Hives Objective Vital Signs 01/28/18 16:00 01/28/18 21:20 01/29/18 00:45 Temperature 97.1 F L 98.1 F 98.2 F Pulse Rate 75 86 88 Respiratory Rate 13 19 19 Blood Pressure 170/65 H 128/68 120/66 Pulse Oximetry 99 96 96 01/29/18 04:00 01/29/18 08:00 01/29/18 12:00 Temperature 98.7 F 98 F 98.3 F Pulse Rate 68 63 69 Respiratory Rate 18 Blood Pressure 139/63 129/69 Pulse Oximetry 96 98 97 Intake & Output 01/28/18 01/29/18 01/29/18 18:59 06:59 18:59 Intake Total 1500 / 1500 1725 / 1725 Output Total 1500 / 1500 2099 Balance 0 / 0 -375 / -375 Weight 236.7 kg Intake: IV 600 / 600 100 / 100 D5W Inj 500 ML @ 50 mls/hr IV. 500 / 500 CONT .Q10H [facility] Rx#:[id number] Azactam Inj 1,000 MG In NS Inj 100 / 100 100 / 100 100 ML @ 200 mls/hr IV.SIG Q12H [facility] Rx#:[id number] Oral 900 / 900 1625 / 1625 Output: Urine 1500 / 1500 Urine Amount (Catheter) 2099 Indwelling Urethral Catheter 2099 Other: Date of Last Bowel Movement 01/26/18 01/26/18 # Bowel Movements 0 0 # Incontinent Bowel Movements 1 0 01/24/18 09:45 Blood - Peripheral Aerobic Blood Culture - Final No growth in 5 days 01/24/18 09:45 Blood - Peripheral Anaerobic Blood Culture - Final No growth in 5 days 01/24/18 10:00 Blood - Peripheral Aerobic Blood Culture - Final No growth in 5 days 01/24/18 10:00 Blood - Peripheral Anaerobic Blood Culture - Final No growth in 5 days 01/27/18 21:33 Clean Catch Urine Urine Culture - Final No growth in 48 hours 01/24/18 10:37 Catheterized Urine Urine Culture - Final Pseudomonas aeruginosa Lab - Hematology Results 01/28/18 06:51 WBC 5.4 RBC 3.38 L Hgb 9.7 L Hct 29.4 L MCV 86.9 MCH 28.7 MCHC 33.0 RDW 16.4 Plt Count 215 MPV 5.9 L Lab - Chemistry Results 01/27/18 01/27/18 01/28/18 16:34 20:36 06:51 Sodium 145 Potassium 3.5 Chloride 112 H Carbon Dioxide 24.3 Anion Gap 9 BUN 30 H Creatinine 2.87 H Estimated GFR 22 L POC Glucose 102 130 H Random Glucose 86 Calcium 7.9 L Phosphorus 2.0 L Albumin 1.9 L 01/28/18 01/28/18 01/28/18 07:46 11:51 16:15 Sodium Potassium Chloride Carbon Dioxide Anion Gap BUN Creatinine Estimated GFR POC Glucose 93 96 106 Random Glucose Calcium Phosphorus Albumin 01/28/18 01/29/18 01/29/18 20:32 07:35 12:58 Sodium Potassium Chloride Carbon Dioxide Anion Gap BUN Creatinine Estimated GFR POC Glucose 110 84 90 Random Glucose Calcium Phosphorus Albumin Imaging: ITS Impressions Abdomen/Pelvis CT 01/24/18 00:00 CONCLUSION: 1. There is hydronephrosis in both kidneys with hydroureter without definite stones not significantly changed since the prior examination and there are gas filled inside the bladder present on the prior examination of uncertain etiology. If the patient has not had instrumentation, possibility of infectious process or colovesical fistula is not excluded. 2. There is soft tissue density adjacent to descending aorta which is densely calcified not present on the prior exam. It could potentially be mass or adenopathy, however possibility of contained hemorrhage at this site should be entertained and not adequately characterized. May consider further characterization with CT angiogram of aorta. Chest X-Ray 01/24/18 09:42 CONCLUSION: Underinflated examination with atelectasis at the lung bases. Otherwise, stable examination. Head CT 01/24/18 09:42 CONCLUSION: 1. Stable noncontrast head CT. No acute intracranial abnormality is identified. 2. Stable chronic findings include generalized atrophy and mild periventricular white matter low-attenuation characteristic of chronic microvascular ischemia. Physical Exam: GENERAL: awake and alert, oriented x 3, NAD SKIN: Cool and dry. No generalized rash HEAD: Atraumatic. Normocephalic. No temporal wasting, or tenderness. EYES: [place] conjunctiva. No petechia or hemorrhage. Pupils equal, round and reactive to light. Extraocular movements full and intact. No scleral icterus. No injection or drainage. EARS, NOSE AND THROAT: Nose without bleeding or purulent nasal discharge. No sinus tenderness. Mucous membranes pink and moist. NECK: Trachea midline. Supple and not tender, no meningeal signs CARDIOVASCULAR: Regular rate and rhythm. No murmurs, rubs or gallops heard RESPIRATORY: Clear to auscultation. Breath sounds equal bilaterally. No rales , wheezing or rhonchi ABDOMEN: Soft, non-tender, nondistended. Bowel sounds present and normoactive. No guarding. No rebound. No organomegaly. EXTREMITIES: No clubbing, cyanosis. RLE looks bigger compared to LLE. No calf tenderness. Well perfused and warm. Amputation site R foot well healed. NEUROLOGICAL: Awake and alert. Cranial nerves grossly intact. Moving all extremities PSYCHIATRIC: Normal affect, calm and cooperative. : Roman in place LINE: No evidence of infection Assessment and Plan - Plan Impression Sepsis on admission due to UTI Roman associated UTI, C/S PSAE Chronic obstructive uropathy with chronic bilateral hydronephrosis CKD due to chronic obstructive uropathy Encephalopathy due to sepsis, resolved Recommendation Continue IV Azactam No oral options to complete Rx due to allergy history Will need to complete Rx with IV Azactam Midline May need change of roman more frequently Monitor progress Ok to D/C once arrangements made Patient came from [facility]
--- NOTE | 2018-01-29 15:19 | P.DCO ---
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 [] May leave port accessed during therapy. [] May leave peripheral site accessed for duration of therapy. [x] If patient has SOB or respiratory distress, check oxygen saturation. If less than 90% or clinical signs of respiratory distress, administer oxygen at 2 L/min. via nasal cannula and notify physician. [x] Anaphylaxis/Reaction orders: * Stop infusion. * Keep IV line open with saline flush. * Notify physician. * Monitor vital signs every 15 minutes until symptoms resolve. * Check Oxygen saturation; Oxygen at 2 L/min. via nasal cannula if less than 90% or clinical signs of respiratory distress. * Administer diphenhydramine (Benadryl) 25 mg IV STAT, (unless patient has received as pre-med). May repeat once, if necessary. * Solu-Cortef 250 mg IVP over 30-60 seconds, use 100 mg vials for each dissolution. * Epinephrine (1mg/1 ml) 0.3 mg subcutaneously or IVP now with any signs of respiratory distress. * Check with physician for new additional pre-med orders if patient is re- challenged or re-treated. [x] May remove line when treatment complete. [x] If the patient is admitted to the hospital, the ED, or transferred via [facility] , complete transfer form including medication reconciliation order sheet. Weekly Labs: CBC w/diff, Creatinine (Do labs on Feb 05) Allergies cephalexin Allergy (Unknown, Verified 01/24/18 11:42) Hives Influenza Virus Vaccines Allergy (Unknown, Verified 01/24/18 11:42) Hives levofloxacin Allergy (Unknown, Verified 01/24/18 11:42) Hives moxifloxacin Allergy (Unknown, Verified 07/20/18 11:42) Hives (1) Urinary tract infection associated with indwelling urethral catheter Qualifiers: Encounter type: initial encounter Qualified Code(s): T83.511A - Infection and inflammatory reaction due to indwelling urethral catheter, initial encounter ; N39.0 - Urinary tract infection, site not specified
[2018-01-29] MEDS: Acetaminophen 325 MG Tablet PO PRN (22:47)
[2018-01-29] MEDS: Melatonin 5 MG Tablet PO PRN (22:49)
[2018-01-30] MEDS: Heparin - SQ 10,000 UNITS/ML Vial SQ SCH ×3 (05:21→21:03)
[2018-01-30] MEDS: Sodium Chloride 0.45 % Inj 1,000 ML IV.CONT SCH ×2 (05:28→13:05)
[2018-01-30] MEDS: Insulin NovoLOG Aspart Correctional Sugar Inj SQ SCH ×5 (05:29→20:51)
[2018-01-30 08:03] LABS: Hematocrit 30.7 % (39.0-51.0); Hemoglobin 9.9 gm/dL (13.0-17.0); Mean Corpuscular HGB Conc 32.3 % (32.0-36.0); Mean Corpuscular Hemoglobin 28.1 pg (27.0-34.0); Mean Platelet Volume 5.9 fL (7.0-11.0); Platelet Count 205 th/mm3 (150-450); Red Blood Count 3.53 mil/mm3 (4.50-5.90); Red Cell Distribution Width 16.5 % (11.6-17.2); White Blood Count 5.6 th/mm3 (4.0-11.0)
[2018-01-30 08:29] LABS: Calcium 8.1 mg/dL (8.5-10.1); Carbon Dioxide 23.3 meq/L (21.0-32.0); Potassium 3.9 meq/L (3.5-5.1)
[2018-01-30] MEDS: amLODIPine 5 MG Tablet PO SCH (08:43)
[2018-01-30] MEDS: Ferrous Sulfate 325 MG Tablet PO SCH (08:43)
--- NOTE | 2018-01-30 10:45 | P.PNFP ---
Subjective Interval history: No overnight events. Mr. Rosenberg reports he is feeling comfortable. He does report a single episode of nausea mild nausea last night. No vomiting. he denies chest pain, shortness of breath, abdominal pain, dysuria. His last bowel movement was yesterday. He is anxious to return to [facility]. ID consulted recommend continuing aztreonam and more frequent Yang changes. Neurology following cleared from their standpoint for DC. <Yoselyn Ramos - 01/30/18 10:45> Results - Labs Result diagrams: 01/30/18 07:10 01/30/18 07:10 <Feliz De La Garza - 01/30/18 18:01> Abnormal lab results 01/30/18 01/30/18 Range/Units 07:10 07:10 RBC 3.53 L (4.50-5.90) mil/mm3 Hgb 9.9 L (13.0-17.0) gm/dL Hct 30.7 L (39.0-51.0) % MPV 5.9 L (7.0-11.0) fL Chloride 111 H (98-107) meq/L BUN 26 H (7-18) mg/dL Creatinine 2.28 H (0.60-1.30) mg/dL Estimated GFR 28 L (>89) mL/min Random Glucose 73 L (74-106) mg/dL Calcium 8.1 L (8.5-10.1) mg/dL Short CBC 01/30/18 Range/Units 07:10 WBC 5.6 (4.0-11.0) th/mm3 Hgb 9.9 L (13.0-17.0) gm/dL Hct 30.7 L (39.0-51.0) % Plt Count 205 (150-450) th/mm3 [facility] 01/30/18 07:10 Sodium 142 Potassium 3.9 Chloride 111 H Carbon Dioxide 23.3 BUN 26 H Creatinine 2.28 H Calcium 8.1 L <Feliz De La Garza - 01/30/18 18:01> Abnormal lab results 01/30/18 01/30/18 Range/Units 07:10 07:10 RBC 3.53 L (4.50-5.90) mil/mm3 Hgb 9.9 L (13.0-17.0) gm/dL Hct 30.7 L (39.0-51.0) % MPV 5.9 L (7.0-11.0) fL Chloride 111 H (98-107) meq/L BUN 26 H (7-18) mg/dL Creatinine 2.28 H (0.60-1.30) mg/dL Estimated GFR 28 L (>89) mL/min Random Glucose 73 L (74-106) mg/dL Calcium 8.1 L (8.5-10.1) mg/dL Short CBC 01/30/18 Range/Units 07:10 WBC 5.6 (4.0-11.0) th/mm3 Hgb 9.9 L (13.0-17.0) gm/dL Hct 30.7 L (39.0-51.0) % Plt Count 205 (150-450) th/mm3 BMP 01/30/18 07:10 Sodium 142 Potassium 3.9 Chloride 111 H Carbon Dioxide 23.3 BUN 26 H Creatinine 2.28 H Calcium 8.1 L <Yoselyn Ramos - 01/30/18 10:45> Physical Exam Vital signs: Vital Signs 01/29/18 20:00 01/30/18 00:00 01/30/18 04:00 Temperature 97.9 F 97.5 F L 97.7 F Pulse Rate 60 64 65 Respiratory Rate 18 18 18 Blood Pressure 150/63 H 137/60 145/65 H Pulse Oximetry 98 94 L 90 L 01/30/18 08:46 01/30/18 12:54 01/30/18 13:41 Temperature 98.4 F 98.7 F Pulse Rate 86 84 73 Respiratory Rate 18 16 Blood Pressure 150/75 H 146/72 H Pulse Oximetry 93 L 91 L Intake & Output 01/29/18 01/30/18 01/30/18 18:59 06:59 18:59 Intake Total 100 / 100 1340 / 1340 1000 / 1000 Output Total 500 / 500 800 / 800 1000 / 1000 Balance -400 / -400 540 / 540 0 / 0 Weight 236.7 kg Intake: IV 100 / 100 1100 / 1100 1000 / 1000 1/2 Normal Saline Inj 1,000 ML 1000 / 1000 1000 / 1000 @ 50 mls/hr IV.CONT .Q20H [facility] Rx#:[id number] Azactam Inj 1,000 MG In NS Inj 100 / 100 100 / 100 100 ML @ 200 mls/hr IV.SIG Q12H [facility] Rx#:[id number] Oral 240 / 240 Output: Urine 500 / 500 800 / 800 1000 / 1000 Other: # Voids 3 Date of Last Bowel Movement 01/29/18 # Bowel Movements 1 <Feliz De La Garza - 01/30/18 18:01> Vital Signs 01/29/18 12:00 01/29/18 16:00 01/29/18 20:00 Temperature 98.3 F 98 F 97.9 F Pulse Rate 69 70 60 Respiratory Rate Blood Pressure 129/69 140/66 150/63 H Pulse Oximetry 97 96 98 01/30/18 00:00 01/30/18 04:00 01/30/18 08:46 Temperature 97.5 F L 97.7 F 98.4 F Pulse Rate 64 65 86 Respiratory Rate 18 Blood Pressure 137/60 145/65 H 150/75 H Pulse Oximetry 94 L 90 L 93 L Intake & Output 01/29/18 01/30/18 01/30/18 18:59 06:59 18:59 Intake Total 100 / 100 1240 / 1240 Output Total 500 / 500 800 / 800 Balance -400 / -400 440 / 440 Weight 236.7 kg Intake: IV 100 / 100 1000 / 1000 1/2 Normal Saline Inj 1,000 ML 1000 / 1000 @ 50 mls/hr IV.CONT .Q20H [facility] Rx#:[id number] Azactam Inj 1,000 MG In NS Inj 100 / 100 100 ML @ 200 mls/hr IV.SIG Q12H [facility] Rx#:[id number] Oral 240 / 240 Output: Urine 500 / 500 800 / 800 Other: # Voids 3 Date of Last Bowel Movement 01/29/18 # Bowel Movements 1 <Yoselyn Ramos William - 01/30/18 10:45> Narrative: GENERAL: Laying in bed, no acute distress. SKIN: Warm and dry. Yang catheter in place. Light yellow urine in bag. CARDIOVASCULAR: Regular rate and rhythm. RESPIRATORY: No accessory muscle use. Clear to auscultation. Breath sounds equal bilaterally. GASTROINTESTINAL: Abdomen soft, non-tender, nondistended. Normoactive bowel sounds MUSCULOSKELETAL: Extremities without clubbing, cyanosis, or edema. Calves nontender to palpation. Small ulcer on the second digit of the R foot. NEUROLOGICAL: Awake and alert. Normal speech. Oriented 3. <Yoselyn Ramos 01/30/18 10:45> - Urinary Catheter Management Indwelling Urethral Catheter Cath placed during this visit: no <Feliz De La Garza 01/30/18 18:01> yes <Yoselyn Ramos 01/30/18 10:45> Urethral indwelling: Yes <Yoselyn Ramos 01/30/18 10:45> Reason for continuing: Chronic Urinary Retention <Yoselyn Ramos 01/30/18 10: 45> Insertion date: 01/24/18 <Yoselyn Ramos 01/30/18 10:45> Insertion time: 10:50 <Yoselyn Ramos 01/30/18 10:45> Assessment and Plan - Assessment (1) Urinary tract infection associated with indwelling urethral catheter Code(s): T83.511A - Infection and inflammatory reaction due to indwelling urethral catheter, initial encounter; N39.0 - Urinary tract infection, site not specified Status: Acute (2) Altered mental status Code(s): R41.82 - Altered mental status, unspecified Status: Resolved (3) Acute kidney injury superimposed on chronic kidney disease Code(s): N17.9 - Acute kidney failure, unspecified; N18.9 - Chronic kidney disease, unspecified Status: Acute (4) Hypertension Code(s): I10 - Essential (primary) hypertension Status: Acute (5) Diabetes Code(s): E11.9 - Type 2 diabetes mellitus without complications Status: Acute (6) Gout Code(s): M10.9 - Gout, unspecified Status: Acute (7) Depression Code(s): F32.9 - Major depressive disorder, single episode, unspecified Status : Acute (8) Nutrition, metabolism, and development symptoms Code(s): R63.8 - Other symptoms and signs concerning food and fluid intake Status: Acute <Feliz De La Garza 01/30/18 18:01> (1) Urinary tract infection associated with indwelling urethral catheter Code(s): T83.511A - Infection and inflammatory reaction due to indwelling urethral catheter, initial encounter; N39.0 - Urinary tract infection, site not specified Status: Acute Plan: Patient has indwelling Yang catheter, UTI with Pseudomonas. Infectious disease consulted for antibiotic selection. Repeat UA without any growth -Started on Azactam 01/28 per ID, recommend continuation for 10 days after discharge. Confirmed with case management [place] can give IV antibiotics -Order for midline to be placed. -WBC stable. patient has been afebrile. -Monitor CBC -Monitor vitals (2) Altered mental status Code(s): R41.82 - Altered mental status, unspecified Status: Resolved Plan: Altered mental status on admission, improved -Patient oriented 3. -See plan for UTI above (3) Acute kidney injury superimposed on chronic kidney disease Code(s): N17.9 - Acute kidney failure, unspecified; N18.9 - Chronic kidney disease, unspecified Status: Acute Plan: Patient with stage IV chronic kidney disease, baseline creatinine of 3. Nephrology consulted, cleared to be d/c home - Continue IV fluids with normal saline 50 mL/h. - Avoid any nephrotoxic agents - Hold Plavix due to hematuria resolving. Consider resuming on DC. - Continue aztreonam. -BUN/creatinine stable. - Monitor BUN/creatinine - Monitor electrolytes replete as necessary (4) Hypertension Code(s): I10 - Essential (primary) hypertension Status: Acute Plan: History of hypertension, on amlodipine at home. Initially held for low normal blood pressure. Hypertensive during stay, restarted amlodipine. -Continue home amlodipine 5 mg daily (5) Diabetes Code(s): E11.9 - Type 2 diabetes mellitus without complications Status: Acute Plan: Patient is a known type II diabetic on home NovoLog. -Insulin sliding scale while inpatient -Foot ulcer on second digit of right foot stable from admission exam. (6) Gout Code(s): M10.9 - Gout, unspecified Status: Acute Plan: Patient with a past medical history of gout managed with allopurinol at home. No indication of acute gout attack at this time. -Hold allopurinol resume once taking po as it is preventative. no higher of a dose than 100 mg per day (7) Depression Code(s): F32.9 - Major depressive disorder, single episode, unspecified Status : Acute Plan: According to jail patient suffers from depression. No previous psychiatric history at this time. -Hold any psychiatric medications until patient is alert, oriented, and arousable and able to be assessed. (8) Nutrition, metabolism, and development symptoms Code(s): R63.8 - Other symptoms and signs concerning food and fluid intake Status: Acute Plan: Fluids: Continue hydration with normal saline at 50 mL/h per nephrology Electrolytes: Replete as needed Nutrition: PO DVT prophylaxis: Heparin 5000 units SQ every 8 hours <Yoselyn Ramos - 01/30/18 10:24> - Assessment and Plan Discussed Condition With: Lore Bejarano and Frederic <Yoselyn Ramos - 01/30/18 10:45> - Attending Attestation Patient examined independently and case discussed with resident physicians I have read the above note and agree with the assessment/plan as discussed with me I was involved in all medical decision making for this patient Feliz De La Garza MD <Feliz De La Garza - 01/30/18 18:01> <Yoselyn Ramos E - Last Filed: 01/30/18 10:24> (1) Urinary tract infection associated with indwelling urethral catheter Qualifiers: Encounter type: initial encounter Qualified Code(s): T83.511A - Infection and inflammatory reaction due to indwelling urethral catheter, initial encounter ; N39.0 - Urinary tract infection, site not specified (2) Altered mental status Qualifiers: Altered mental status type: delirium Qualified Code(s): R41.0 - Disorientation, unspecified (5) Diabetes Qualifiers: Diabetes mellitus type: type 2 Diabetes mellitus custodial insulin use: with chute feeder use Diabetes mellitus complication status: with kidney complications Diabetes mellitus complication detail: with chronic kidney disease Chronic kidney disease stage: stage 5, not on chronic dialysis Qualified Code(s): E11.22 - Type 2 diabetes mellitus with diabetic chronic kidney disease; N18.5 - Chronic kidney disease, stage 5; Z79.4 - [employer] (current) use of insulin <Feliz De La Garza - Last Filed: 01/30/18 18:01> (1) Urinary tract infection associated with indwelling urethral catheter Qualifiers: Encounter type: initial encounter Qualified Code(s): T83.511A - Infection and inflammatory reaction due to indwelling urethral catheter, initial encounter ; N39.0 - Urinary tract infection, site not specified (2) Altered mental status Qualifiers: Altered mental status type: delirium Qualified Code(s): R41.0 - Disorientation, unspecified (5) Diabetes Qualifiers: Diabetes mellitus type: type 2 Diabetes mellitus custodial insulin use: with custodial use Diabetes mellitus complication status: with kidney complications Diabetes mellitus complication detail: with chronic kidney disease Chronic kidney disease stage: stage 5, not on chronic dialysis Qualified Code(s): E11.22 - Type 2 diabetes mellitus with diabetic chronic kidney disease; N18.5 - Chronic kidney disease, stage 5; Z79.4 - snf (current) use of insulin <Yoselyn Ramos - Last Filed: 01/30/18 10:24> (1) Urinary tract infection associated with indwelling urethral catheter Qualifiers: Encounter type: initial encounter Qualified Code(s): T83.511A - Infection and inflammatory reaction due to indwelling urethral catheter, initial encounter ; N39.0 - Urinary tract infection, site not specified (2) Altered mental status Qualifiers: Altered mental status type: delirium Qualified Code(s): R41.0 - Disorientation, unspecified (5) Diabetes Qualifiers: Diabetes mellitus type: type 2 Diabetes mellitus custodial insulin use: with custodial use Diabetes mellitus complication status: with kidney complications Diabetes mellitus complication detail: with chronic kidney disease Chronic kidney disease stage: stage 5, not on chronic dialysis Qualified Code(s): E11.22 - Type 2 diabetes mellitus with diabetic chronic kidney disease; N18.5 - Chronic kidney disease, stage 5; Z79.4 - snf (current) use of insulin <Feliz De La Garza - Last Filed: 01/30/18 18:01> (1) Urinary tract infection associated with indwelling urethral catheter Qualifiers: Encounter type: initial encounter Qualified Code(s): T83.511A - Infection and inflammatory reaction due to indwelling urethral catheter, initial encounter ; N39.0 - Urinary tract infection, site not specified (2) Altered mental status Qualifiers: Altered mental status type: delirium Qualified Code(s): R41.0 - Disorientation, unspecified (5) Diabetes Qualifiers: Diabetes mellitus type: type 2 Diabetes mellitus chute feeder insulin use: with chute feeder use Diabetes mellitus complication status: with kidney complications Diabetes mellitus complication detail: with chronic kidney disease Chronic kidney disease stage: stage 5, not on chronic dialysis Qualified Code(s): E11.22 - Type 2 diabetes mellitus with diabetic chronic kidney disease; N18.5 - Chronic kidney disease, stage 5; Z79.4 - sten[employer] (current) use of insulin
--- NOTE | 2018-01-30 11:52 | P.PNNP ---
Subjective Interval history: As of yesterday, renal function had improved. To have Midline placed for outpatient Abx. <Mariza Loya - Last Filed: 01/30/18 11:45> Physical Exam Vital signs: Vital Signs 01/29/18 12:00 01/29/18 16:00 01/29/18 20:00 Temperature 98.3 F 98 F 97.9 F Pulse Rate 69 70 60 Respiratory Rate 18 18 18 Blood Pressure 129/69 140/66 150/63 H Pulse Oximetry 97 96 98 01/30/18 00:00 01/30/18 04:00 01/30/18 08:46 Temperature 97.5 F L 97.7 F 98.4 F Pulse Rate 64 65 86 Respiratory Rate 18 18 18 Blood Pressure 137/60 145/65 H 150/75 H Pulse Oximetry 94 L 90 L 93 L Intake & Output 01/29/18 01/30/18 01/30/18 18:59 06:59 18:59 Intake Total 100 / 100 1240 / 1240 Output Total 500 / 500 800 / 800 Balance -400 / -400 440 / 440 Weight 236.7 kg Intake: IV 100 / 100 1000 / 1000 1/2 Normal Saline Inj 1,000 ML 1000 / 1000 @ 50 mls/hr IV.CONT .Q20H RITESH Rx#:[id number] Azactam Inj 1,000 MG In NS Inj 100 / 100 100 ML @ 200 mls/hr IV.SIG Q12H RITESH Rx#:[id number] Oral 240 / 240 Output: Urine 500 / 500 800 / 800 Other: # Voids 3 Date of Last Bowel Movement 01/29/18 # Bowel Movements 1 - Constitutional no acute distress, average body habitus, chronically ill appearing - Routine HEENT Exam Head: Present: normocephalic - Routine Neck Exam Present: supple, full ROM - Routine Respiratory Exam Present: CTA bilaterally. Absent: accessory muscle use - Routine Cardiovascular Exam Present: RRR, S1, S2 - Routine Abdominal Exam Present: soft, normoactive bowel sounds - Routine Skin Exam Present: intact, warm - Routine Neurological Exam Present: alert, oriented X3, CN II-XII intact - Detailed Neurological Exam: Coma Scale Eye Opening: Spontaneous Verbal Response: Oriented Motor Response: Obey commands Shelbi Coma Scale Total: 15 - Routine Psychiatric Exam Present: normal affect, normal thought process - Urinary Catheter Management Indwelling Urethral Catheter Cath placed during this visit: yes Urethral indwelling: Yes Reason for continuing: Chronic Urinary Retention Insertion date: 01/24/18 Insertion time: 10:50 <Mariza Loya - Last Filed: 01/30/18 11:45> Vital signs: Vital Signs 01/29/18 16:00 01/29/18 20:00 01/30/18 00:00 Temperature 98 F 97.9 F 97.5 F L Pulse Rate 70 60 64 Respiratory Rate 18 Blood Pressure 140/66 150/63 H 137/60 Pulse Oximetry 96 98 94 L 01/30/18 04:00 01/30/18 08:46 01/30/18 12:54 Temperature 97.7 F 98.4 F 98.7 F Pulse Rate 65 86 84 Respiratory Rate 16 Blood Pressure 145/65 H 150/75 H 146/72 H Pulse Oximetry 90 L 93 L 91 L 01/30/18 13:41 Temperature Pulse Rate 73 Respiratory Rate Blood Pressure Pulse Oximetry Intake & Output 01/29/18 01/30/18 01/30/18 18:59 06:59 18:59 Intake Total 100 / 100 1340 / 1340 1000 / 1000 Output Total 500 / 500 800 / 800 1000 / 1000 Balance -400 / -400 540 / 540 0 / 0 Weight 236.7 kg Intake: IV 100 / 100 1100 / 1100 1000 / 1000 1/2 Normal Saline Inj 1,000 ML 1000 / 1000 1000 / 1000 @ 50 mls/hr IV.CONT .Q20H RITESH Rx#:[id number] Azactam Inj 1,000 MG In NS Inj 100 / 100 100 / 100 100 ML @ 200 mls/hr IV.SIG Q12H RITESH Rx#:[id number] Oral 240 / 240 Output: Urine 500 / 500 800 / 800 1000 / 1000 Other: # Voids 3 Date of Last Bowel Movement 01/29/18 # Bowel Movements 1 - Urinary Catheter Management Indwelling Urethral Catheter Cath placed during this visit: no <Curt Bal - Last Filed: 01/30/18 14:44> Assessment and Plan - Assessment (1) Acute kidney injury superimposed on chronic kidney disease Code(s): N17.9 - Acute kidney failure, unspecified; N18.9 - Chronic kidney disease, unspecified Status: Acute Plan: SHAHLA on CKD 4. Baseline creatinine 2.8-3. Renal function has improved, labs not obtained. Overall condition improved. Hypernatremia also improved. Monitor urine output, has a (chronic suprapubic) Yang catheter Avoid nephrotoxic agents Stop IVF. (2) Urinary tract infection associated with indwelling urethral catheter Code(s): T83.511A - Infection and inflammatory reaction due to indwelling urethral catheter, initial encounter; N39.0 - Urinary tract infection, site not specified Status: Acute Qualifiers: Encounter type: initial encounter Qualified Code(s): T83.511A - Infection and inflammatory reaction due to indwelling urethral catheter, initial encounter ; N39.0 - Urinary tract infection, site not specified Plan: Yang catheter was replaced since admission. Should be changed more than monthly per ID Antibiotics include Aztreonam for Pseudomonas UTI. ID has evaluated. Okay to place Midline (3) Diabetes Code(s): E11.9 - Type 2 diabetes mellitus without complications Status: Acute Qualifiers: Diabetes mellitus type: type 2 Diabetes mellitus termite inspector insulin use: with termite inspector use Diabetes mellitus complication status: with kidney complications Diabetes mellitus complication detail: with chronic kidney disease Chronic kidney disease stage: stage 5, not on chronic dialysis Qualified Code(s): E11.22 - Type 2 diabetes mellitus with diabetic chronic kidney disease; N18.5 - Chronic kidney disease, stage 5; Z79.4 - termite inspector ( current) use of insulin Plan: Insulin coverage, to maintain blood glucose between 140 and 180. (4) Anemia Code(s): D64.9 - Anemia, unspecified Status: Chronic Qualifiers: Anemia type: iron deficiency Iron deficiency anemia type: inadequate dietary iron intake Qualified Code(s): D50.8 - Other iron deficiency anemias Plan: Iron deficiency present, however avoid Venofer given Sepsis. On oral iron. - Plan Cleared for discharge from renal perspective. We will follow in CKD clinic. <Mariza Loya - Last Filed: 01/30/18 11:45> - Assessment (1) Acute kidney injury superimposed on chronic kidney disease Code(s): N17.9 - Acute kidney failure, unspecified; N18.9 - Chronic kidney disease, unspecified Status: Acute (2) Urinary tract infection associated with indwelling urethral catheter Code(s): T83.511A - Infection and inflammatory reaction due to indwelling urethral catheter, initial encounter; N39.0 - Urinary tract infection, site not specified Status: Acute Qualifiers: Encounter type: initial encounter Qualified Code(s): T83.511A - Infection and inflammatory reaction due to indwelling urethral catheter, initial encounter ; N39.0 - Urinary tract infection, site not specified (3) Diabetes Code(s): E11.9 - Type 2 diabetes mellitus without complications Status: Acute Qualifiers: Diabetes mellitus type: type 2 Diabetes mellitus termite inspector insulin use: with termite inspector use Diabetes mellitus complication status: with kidney complications Diabetes mellitus complication detail: with chronic kidney disease Chronic kidney disease stage: stage 5, not on chronic dialysis Qualified Code(s): E11.22 - Type 2 diabetes mellitus with diabetic chronic kidney disease; N18.5 - Chronic kidney disease, stage 5; Z79.4 - termite inspector ( current) use of insulin (4) Anemia Code(s): D64.9 - Anemia, unspecified Status: Chronic Qualifiers: Anemia type: iron deficiency Iron deficiency anemia type: inadequate dietary iron intake Qualified Code(s): D50.8 - Other iron deficiency anemias - Attending Attestation patient was seen and examined. Agree with above assessment and plan. <Curt Bal - Last Filed: 01/30/18 14:44>
[2018-01-30] MEDS: Melatonin 5 MG Tablet PO PRN (21:07)
[2018-01-31] MEDS: Heparin - SQ 10,000 UNITS/ML Vial SQ SCH ×2 (06:33→13:00)
[2018-01-31] MEDS: Sodium Chloride 0.45 % Inj 1,000 ML IV.CONT SCH (08:13)
[2018-01-31] MEDS: amLODIPine 5 MG Tablet PO SCH (08:17)
[2018-01-31] MEDS: Insulin NovoLOG Aspart Correctional Sugar Inj SQ SCH ×3 (08:17→17:56)
[2018-01-31] MEDS: Ferrous Sulfate 325 MG Tablet PO SCH (08:17)
[2018-01-31] MEDS ORDERED: amLODIPine 10 MG Tablet PO SCH (11:00)
--- NOTE | 2018-01-31 11:19 | P.PNFP ---
Subjective Interval history: Mr. Rosenberg had a midline placed in his left arm yesterday. Overnight Mr. oRsenberg had increased blood pressure with a max of 176/72. Was given clonidine brought it down to 153/95. Nursing reports patient denied pain , headaches, vision changes. Mr. Rosenberg denies any issues on exam today. He denies any chest pain, shortness of breath, nausea, vomiting, fevers, chills, abdominal pain. He is excited to go home today. <Yoselyn Ramos - 01/31/18 11:31> Results - Labs Result diagrams: 01/30/18 07:10 01/31/18 10:21 <Feliz De La Garza - 01/31/18 13:21> Abnormal lab results 01/31/18 Range/Units 10:21 Chloride 110 H (98-107) meq/L BUN 22 H (7-18) mg/dL Creatinine 2.15 H (0.60-1.30) mg/dL Estimated GFR 30 L (>89) mL/min BMP 01/31/18 10:21 Sodium 141 Potassium 3.9 Chloride 110 H Carbon Dioxide 24.0 BUN 22 H Creatinine 2.15 H Calcium 8.5 <Feliz De La Garza - 01/31/18 13:21> Physical Exam Vital signs: Vital Signs 01/30/18 13:41 01/30/18 18:10 01/30/18 20:00 Temperature 99 F Pulse Rate 73 87 Respiratory Rate 18 Blood Pressure 164/72 H Pulse Oximetry 91 L 95 01/31/18 00:00 01/31/18 00:54 01/31/18 04:00 Temperature 98 F 97.4 F L Pulse Rate 75 80 Respiratory Rate 18 18 18 Blood Pressure 156/85 H 176/72 H Pulse Oximetry 97 01/31/18 07:48 01/31/18 08:54 01/31/18 12:00 Temperature 98.6 F 97.9 F Pulse Rate 84 73 73 Respiratory Rate 18 20 Blood Pressure 153/95 H 177/77 H Pulse Oximetry 97 96 Intake & Output 01/30/18 01/31/18 01/31/18 18:59 06:59 18:59 Intake Total 1000 / 1000 200 / 200 500 / 500 Output Total 1650 / 1650 1700 / 1700 Balance -650 / -650 -1500 / -1500 500 / 500 Weight 237.4 kg Intake: IV 1000 / 1000 200 / 200 500 / 500 1/2 Normal Saline Inj 1,000 ML 1000 / 1000 400 / 400 @ 50 mls/hr IV.CONT .Q20H [facility] Rx#:[id number] Azactam Inj 1,000 MG In NS Inj 200 / 200 100 / 100 100 ML @ 200 mls/hr IV.SIG Q12H R[facility] Rx#:[id number] Output: Urine 1000 / 1000 900 / 900 Urine Amount (Catheter) 650 / 650 800 / 800 Indwelling Urethral Catheter 650 / 650 800 / 800 Other: Date of Last Bowel Movement 01/30/18 <Feliz De La Garza - 01/31/18 13:21> Vital Signs 01/30/18 12:54 01/30/18 13:41 01/30/18 18:10 Temperature 98.7 F Pulse Rate 84 73 Respiratory Rate 16 Blood Pressure 146/72 H Pulse Oximetry 91 L 91 L 01/30/18 20:00 01/31/18 00:00 01/31/18 00:54 Temperature 99 F 98 F Pulse Rate 87 75 Respiratory Rate 18 18 18 Blood Pressure 164/72 H 156/85 H Pulse Oximetry 95 97 01/31/18 04:00 01/31/18 07:48 01/31/18 08:54 Temperature 97.4 F L 98.6 F Pulse Rate 80 84 73 Respiratory Rate 18 18 Blood Pressure 176/72 H 153/95 H Pulse Oximetry 97 Intake & Output 01/30/18 01/31/18 01/31/18 18:59 06:59 18:59 Intake Total 1000 / 1000 200 / 200 400 / 400 Output Total 1650 / 1650 1700 / 1700 Balance -650 / -650 -1500 / -1500 400 / 400 Weight 237.4 kg Intake: IV 1000 / 1000 200 / 200 400 / 400 1/2 Normal Saline Inj 1,000 ML 1000 / 1000 400 / 400 @ 50 mls/hr IV.CONT .Q20H RITESH Rx#:[id number] Azactam Inj 1,000 MG In NS Inj 200 / 200 100 ML @ 200 mls/hr IV.SIG Q12H RIT[facility] Rx#:[id number] Output: Urine 1000 / 1000 900 / 900 Urine Amount (Catheter) 650 / 650 800 / 800 Indwelling Urethral Catheter 650 / 650 800 / 800 Other: Date of Last Bowel Movement 01/30/18 <Yoselyn Ramos 01/31/18 11:19> Narrative: GENERAL: Lying in bed, no acute distress. SKIN: Warm and dry. Yang catheter in place. Light yellow urine in bag. CARDIOVASCULAR: Regular rate and rhythm. RESPIRATORY: No accessory muscle use. Clear to auscultation. Breath sounds equal bilaterally. GASTROINTESTINAL: Abdomen soft, non-tender, nondistended. Normoactive bowel sounds MUSCULOSKELETAL: Midline in place in left arm. No surrounding erythema or induration. Extremities without clubbing, cyanosis, or edema. Calves nontender to palpation. Small ulcer on the second digit of the R foot. NEUROLOGICAL: Awake and alert. Normal speech. <Yoselyn Ramos 01/31/18 11:31> - Urinary Catheter Management Indwelling Urethral Catheter Cath placed during this visit: no <Shanon De La Garzay Jaqui 01/31/18 13:21> yes <Yoselyn Ramos 01/31/18 11:31> Urethral indwelling: Yes <RachelYoselyn Thomas 01/31/18 11:19> Reason for continuing: Chronic Urinary Retention <Yoselyn Ramos 01/31/18 11: 19> Insertion date: 01/24/18 <Yoselyn Ramos 01/31/18 11:19> Insertion time: 10:50 <Yoselyn Ramos 01/31/18 11:19> Assessment and Plan - Assessment (1) Urinary tract infection associated with indwelling urethral catheter Code(s): T83.511A - Infection and inflammatory reaction due to indwelling urethral catheter, initial encounter; N39.0 - Urinary tract infection, site not specified Status: Acute (2) Altered mental status Code(s): R41.82 - Altered mental status, unspecified Status: Resolved (3) Acute kidney injury superimposed on chronic kidney disease Code(s): N17.9 - Acute kidney failure, unspecified; N18.9 - Chronic kidney disease, unspecified Status: Acute (4) Hypertension Code(s): I10 - Essential (primary) hypertension Status: Acute (5) Diabetes Code(s): E11.9 - Type 2 diabetes mellitus without complications Status: Acute (6) Gout Code(s): M10.9 - Gout, unspecified Status: Acute (7) Depression Code(s): F32.9 - Major depressive disorder, single episode, unspecified Status : Acute (8) Nutrition, metabolism, and development symptoms Code(s): R63.8 - Other symptoms and signs concerning food and fluid intake Status: Acute <Feliz De La Garza - 01/31/18 13:21> (1) Urinary tract infection associated with indwelling urethral catheter Code(s): T83.511A - Infection and inflammatory reaction due to indwelling urethral catheter, initial encounter; N39.0 - Urinary tract infection, site not specified Status: Acute Plan: Patient has indwelling Yang catheter, UTI with Pseudomonas. Infectious disease consulted for antibiotic selection. Repeat UA without any growth -Started on Azactam 01/28 per ID, recommend continuation for 10 days after discharge. Confirmed with case management [place] [facility] can give IV antibiotics -Midline placed yesterday -WBC stable. patient has been afebrile. -Monitor CBC -Monitor vitals -ID recommend more frequent Yang changes. (2) Altered mental status Code(s): R41.82 - Altered mental status, unspecified Status: Resolved Plan: Altered mental status on admission, improved -Patient recovering mental capacity -See plan for UTI above (3) Acute kidney injury superimposed on chronic kidney disease Code(s): N17.9 - Acute kidney failure, unspecified; N18.9 - Chronic kidney disease, unspecified Status: Acute Plan: Patient with stage IV chronic kidney disease, baseline creatinine of 3. Nephrology consulted, cleared to be d/c home - Continue IV fluids with normal saline 50 mL/h. - Avoid any nephrotoxic agents - Hold Plavix due to hematuria resolving. Consider resuming on DC. - Continue aztreonam. -BUN/creatinine stable. - Monitor BUN/creatinine - Monitor electrolytes replete as necessary (4) Hypertension Code(s): I10 - Essential (primary) hypertension Status: Acute Plan: History of hypertension, on amlodipine at home. Initially held for low normal blood pressure. Hypertensive during stay, restarted amlodipine. -Blood pressure is elevated overnight -Increase amlodipine to 10 mg daily (5) Diabetes Code(s): E11.9 - Type 2 diabetes mellitus without complications Status: Acute Plan: Patient is a known type II diabetic on home NovoLog. -Insulin sliding scale while inpatient -Foot ulcer on second digit of right foot stable from admission exam. (6) Gout Code(s): M10.9 - Gout, unspecified Status: Acute Plan: Patient with a past medical history of gout managed with allopurinol at home. No indication of acute gout attack at this time. -Hold allopurinol resume once taking po as it is preventative. no higher of a dose than 100 mg per day (7) Depression Code(s): F32.9 - Major depressive disorder, single episode, unspecified Status : Acute Plan: According to intermediate patient suffers from depression. No previous psychiatric history at this time. Continue home medications (8) Nutrition, metabolism, and development symptoms Code(s): R63.8 - Other symptoms and signs concerning food and fluid intake Status: Acute Plan: Fluids: Continue hydration with normal saline at 50 mL/h per nephrology Electrolytes: Replete as needed Nutrition: PO DVT prophylaxis: Heparin 5000 units SQ every 8 hours <Yosleyn Ramos - 01/31/18 11:21> - Assessment and Plan Discussed Condition With: Lore De La Garza and Darci <Yoselyn Ramos - 01/31/18 11:31> Discharge Planning: Coordination with a tree for return to the facility <Yoselyn Ramos - 01/31/18 11:31> - Attending Attestation I have independently examined the patient and discussed the case with resident physicians I have read the above note and agree with the assessment/plan as discussed with me I was involved in all medical decision making for this patient Feliz De La Garza MD <Feliz De La Garza - 01/31/18 13:21> <Yoselyn Ramos E - Last Filed: 01/31/18 11:21> (1) Urinary tract infection associated with indwelling urethral catheter Qualifiers: Encounter type: initial encounter Qualified Code(s): T83.511A - Infection and inflammatory reaction due to indwelling urethral catheter, initial encounter ; N39.0 - Urinary tract infection, site not specified (2) Altered mental status Qualifiers: Altered mental status type: delirium Qualified Code(s): R41.0 - Disorientation, unspecified (5) Diabetes Qualifiers: Diabetes mellitus type: type 2 Diabetes mellitus long-term insulin use: with termite control service representative use Diabetes mellitus complication status: with kidney complications Diabetes mellitus complication detail: with chronic kidney disease Chronic kidney disease stage: stage 5, not on chronic dialysis Qualified Code(s): E11.22 - Type 2 diabetes mellitus with diabetic chronic kidney disease; N18.5 - Chronic kidney disease, stage 5; Z79.4 - exterminator termite (current) use of insulin <Feliz De La Garza - Last Filed: 01/31/18 13:21> (1) Urinary tract infection associated with indwelling urethral catheter Qualifiers: Encounter type: initial encounter Qualified Code(s): T83.511A - Infection and inflammatory reaction due to indwelling urethral catheter, initial encounter ; N39.0 - Urinary tract infection, site not specified (2) Altered mental status Qualifiers: Altered mental status type: delirium Qualified Code(s): R41.0 - Disorientation, unspecified (5) Diabetes Qualifiers: Diabetes mellitus type: type 2 Diabetes mellitus termite control service representative insulin use: with long-term use Diabetes mellitus complication status: with kidney complications Diabetes mellitus complication detail: with chronic kidney disease Chronic kidney disease stage: stage 5, not on chronic dialysis Qualified Code(s): E11.22 - Type 2 diabetes mellitus with diabetic chronic kidney disease; N18.5 - Chronic kidney disease, stage 5; Z79.4 - [facility] (current) use of insulin <Yoselyn Ramos - Last Filed: 01/31/18 11:21> (1) Urinary tract infection associated with indwelling urethral catheter Qualifiers: Encounter type: initial encounter Qualified Code(s): T83.511A - Infection and inflammatory reaction due to indwelling urethral catheter, initial encounter ; N39.0 - Urinary tract infection, site not specified (2) Altered mental status Qualifiers: Altered mental status type: delirium Qualified Code(s): R41.0 - Disorientation, unspecified (5) Diabetes Qualifiers: Diabetes mellitus type: type 2 Diabetes mellitus long-term insulin use: with long-term use Diabetes mellitus complication status: with kidney complications Diabetes mellitus complication detail: with chronic kidney disease Chronic kidney disease stage: stage 5, not on chronic dialysis Qualified Code(s): E11.22 - Type 2 diabetes mellitus with diabetic chronic kidney disease; N18.5 - Chronic kidney disease, stage 5; Z79.4 - [facility] (current) use of insulin <Feliz De La Garza - Last Filed: 01/31/18 13:21> (1) Urinary tract infection associated with indwelling urethral catheter Qualifiers: Encounter type: initial encounter Qualified Code(s): T83.511A - Infection and inflammatory reaction due to indwelling urethral catheter, initial encounter ; N39.0 - Urinary tract infection, site not specified (2) Altered mental status Qualifiers: Altered mental status type: delirium Qualified Code(s): R41.0 - Disorientation, unspecified (5) Diabetes Qualifiers: Diabetes mellitus type: type 2 Diabetes mellitus termite control service representative insulin use: with termite control service representative use Diabetes mellitus complication status: with kidney complications Diabetes mellitus complication detail: with chronic kidney disease Chronic kidney disease stage: stage 5, not on chronic dialysis Qualified Code(s): E11.22 - Type 2 diabetes mellitus with diabetic chronic kidney disease; N18.5 - Chronic kidney disease, stage 5; Z79.4 - exterminator termite (current) use of insulin
[2018-01-31 11:30] LABS: Calcium 8.5 mg/dL (8.5-10.1); Potassium 3.9 meq/L (3.5-5.1)
--- NOTE | 2018-01-31 11:39 | P.PNNP ---
Subjective Interval history: Midline placed. May be discharged. <Mariza Loya - Last Filed: 01/31/18 11:34> Physical Exam Vital signs: Vital Signs 01/30/18 12:54 01/30/18 13:41 01/30/18 18:10 Temperature 98.7 F Pulse Rate 84 73 Respiratory Rate 16 Blood Pressure 146/72 H Pulse Oximetry 91 L 91 L 01/30/18 20:00 01/31/18 00:00 01/31/18 00:54 Temperature 99 F 98 F Pulse Rate 87 75 Respiratory Rate 18 18 18 Blood Pressure 164/72 H 156/85 H Pulse Oximetry 95 97 01/31/18 04:00 01/31/18 07:48 01/31/18 08:54 Temperature 97.4 F L 98.6 F Pulse Rate 80 84 73 Respiratory Rate 18 18 Blood Pressure 176/72 H 153/95 H Pulse Oximetry 97 Intake & Output 01/30/18 01/31/18 01/31/18 18:59 06:59 18:59 Intake Total 1000 / 1000 200 / 200 400 / 400 Output Total 1650 / 1650 1700 / 1700 Balance -650 / -650 -1500 / -1500 400 / 400 Weight 237.4 kg Intake: IV 1000 / 1000 200 / 200 400 / 400 1/2 Normal Saline Inj 1,000 ML 1000 / 1000 400 / 400 @ 50 mls/hr IV.CONT .Q20H RITESH Rx#:[id number] Azactam Inj 1,000 MG In NS Inj 200 / 200 100 ML @ 200 mls/hr IV.SIG Q12H RITESH Rx#:[id number] Output: Urine 1000 / 1000 900 / 900 Urine Amount (Catheter) 650 / 650 800 / 800 Indwelling Urethral Catheter 650 / 650 800 / 800 Other: Date of Last Bowel Movement 01/30/18 - Constitutional no acute distress, chronically ill appearing - Routine HEENT Exam Head: Present: normocephalic - Routine Neck Exam Present: supple, full ROM - Routine Respiratory Exam Present: CTA bilaterally. Absent: accessory muscle use - Routine Cardiovascular Exam Present: RRR, S1, S2 - Routine Abdominal Exam Present: soft, normoactive bowel sounds - Routine Extremities Exam Present: edema, pulses intact, normal capillary refill - Routine Skin Exam Present: intact, warm - Routine Neurological Exam Present: alert, oriented X3, CN II-XII intact, moving all extremities - Detailed Neurological Exam: Coma Scale Eye Opening: Spontaneous Verbal Response: Oriented Motor Response: Obey commands Shelbi Coma Scale Total: 15 - Routine Psychiatric Exam Present: normal affect, normal thought process - Urinary Catheter Management Indwelling Urethral Catheter Cath placed during this visit: yes Urethral indwelling: Yes Reason for continuing: Chronic Urinary Retention Insertion date: 01/24/18 Insertion time: 10:50 <Mariza Loya - Last Filed: 01/31/18 11:34> Vital signs: Vital Signs 01/30/18 18:10 01/30/18 20:00 01/31/18 00:00 Temperature 99 F 98 F Pulse Rate 87 75 Respiratory Rate 18 18 Blood Pressure 164/72 H 156/85 H Pulse Oximetry 91 L 95 97 01/31/18 00:54 01/31/18 04:00 01/31/18 07:48 Temperature 97.4 F L 98.6 F Pulse Rate 80 84 Respiratory Rate 18 18 18 Blood Pressure 176/72 H 153/95 H Pulse Oximetry 97 01/31/18 08:54 01/31/18 12:00 Temperature 97.9 F Pulse Rate 73 73 Respiratory Rate 20 Blood Pressure 177/77 H Pulse Oximetry 96 Intake & Output 01/30/18 01/31/18 01/31/18 18:59 06:59 18:59 Intake Total 1000 / 1000 200 / 200 500 / 500 Output Total 1650 / 1650 1700 / 1700 700 / 700 Balance -650 / -650 -1500 / -1500 -200 / -200 Weight 237.4 kg Intake: IV 1000 / 1000 200 / 200 500 / 500 1/2 Normal Saline Inj 1,000 ML 1000 / 1000 400 / 400 @ 50 mls/hr IV.CONT .Q20H RITESH Rx#:[id number] Azactam Inj 1,000 MG In NS Inj 200 / 200 100 / 100 100 ML @ 200 mls/hr IV.SIG Q12H RITESH Rx#:[id number] Output: Urine 1000 / 1000 900 / 900 700 / 700 Urine Amount (Catheter) 650 / 650 800 / 800 Indwelling Urethral Catheter 650 / 650 800 / 800 Other: Date of Last Bowel Movement 01/30/18 - Urinary Catheter Management Indwelling Urethral Catheter Cath placed during this visit: no <Curt Bal - Last Filed: 01/31/18 15:42> Assessment and Plan - Assessment (1) Acute kidney injury superimposed on chronic kidney disease Code(s): N17.9 - Acute kidney failure, unspecified; N18.9 - Chronic kidney disease, unspecified Status: Acute Plan: SHAHLA on CKD 4. Renal function has improved Overall condition also improved. Hypernatremia corrected. Monitor urine output, has a (chronic suprapubic) Yang catheter Avoid nephrotoxic agents Off IVF. We will follow in CKD clinic after discharge. Appt 02/24/18. (2) Urinary tract infection associated with indwelling urethral catheter Code(s): T83.511A - Infection and inflammatory reaction due to indwelling urethral catheter, initial encounter; N39.0 - Urinary tract infection, site not specified Status: Acute Qualifiers: Encounter type: initial encounter Qualified Code(s): T83.511A - Infection and inflammatory reaction due to indwelling urethral catheter, initial encounter ; N39.0 - Urinary tract infection, site not specified Plan: Yang catheter was replaced since admission. Should be changed more than monthly per ID Antibiotics include Aztreonam for Pseudomonas UTI. ID has evaluated. s/p Midline (3) Diabetes Code(s): E11.9 - Type 2 diabetes mellitus without complications Status: Acute Qualifiers: Diabetes mellitus type: type 2 Diabetes mellitus care home insulin use: with care home use Diabetes mellitus complication status: with kidney complications Diabetes mellitus complication detail: with chronic kidney disease Chronic kidney disease stage: stage 5, not on chronic dialysis Qualified Code(s): E11.22 - Type 2 diabetes mellitus with diabetic chronic kidney disease; N18.5 - Chronic kidney disease, stage 5; Z79.4 - [facility] ( current) use of insulin Plan: Insulin coverage, to maintain blood glucose between 140 and 180. (4) Anemia Code(s): D64.9 - Anemia, unspecified Status: Chronic Qualifiers: Anemia type: iron deficiency Iron deficiency anemia type: inadequate dietary iron intake Qualified Code(s): D50.8 - Other iron deficiency anemias Plan: Iron deficiency present, however avoid Venofer given Sepsis. On oral iron. - Plan Cleared for discharge from renal perspective. <Mariza Loya - Last Filed: 01/31/18 11:34> - Assessment (1) Acute kidney injury superimposed on chronic kidney disease Code(s): N17.9 - Acute kidney failure, unspecified; N18.9 - Chronic kidney disease, unspecified Status: Acute (2) Urinary tract infection associated with indwelling urethral catheter Code(s): T83.511A - Infection and inflammatory reaction due to indwelling urethral catheter, initial encounter; N39.0 - Urinary tract infection, site not specified Status: Acute Qualifiers: Encounter type: initial encounter Qualified Code(s): T83.511A - Infection and inflammatory reaction due to indwelling urethral catheter, initial encounter ; N39.0 - Urinary tract infection, site not specified (3) Diabetes Code(s): E11.9 - Type 2 diabetes mellitus without complications Status: Acute Qualifiers: Diabetes mellitus type: type 2 Diabetes mellitus care home insulin use: with care home use Diabetes mellitus complication status: with kidney complications Diabetes mellitus complication detail: with chronic kidney disease Chronic kidney disease stage: stage 5, not on chronic dialysis Qualified Code(s): E11.22 - Type 2 diabetes mellitus with diabetic chronic kidney disease; N18.5 - Chronic kidney disease, stage 5; Z79.4 - [facility] ( current) use of insulin (4) Anemia Code(s): D64.9 - Anemia, unspecified Status: Chronic Qualifiers: Anemia type: iron deficiency Iron deficiency anemia type: inadequate dietary iron intake Qualified Code(s): D50.8 - Other iron deficiency anemias - Attending Attestation patient was seen and examined. Agree with above assessment and plan. <Curt Bal - Last Filed: 01/31/18 15:42>
[2018-01-31 15:45] VITALS: BP 130/71; RESP 18; TEMP 98.2; O2SAT 94
[2018-01-31 17:38] VITALS: PULSE 68
--- NOTE | 2018-02-12 11:24 | P.DS ---
Date of admission: 01/24/18 12:06 Primary care physician: UNKNOWN Brief History from admission: This patient is a 77-year-old male with history of A. fib on Plavix, CHF, CKD, COPD, dementia, diabetes, and hypertension with an indwelling Yang catheter who was brought in via EMS from his long-term due to altered mental status. This patient was also recently admitted in December of 2017 for cystitis that was positive for Pseudomonas and treated with Zosyn. At time of admission interview patient was minimally responsive however he is more awake today and oriented x 3. Per ED note, long-term describes this gentleman as normally alert and oriented 3, but was found to be unresponsive by long-term staff. There is no prior knowledge of any previous infections or changes in mental status recently. In the ED he was found to be stable with a temperature of 99.5, pulse rate of 85, a respiratory rate of 12, and a blood pressure 102/55, as well as satting 98% on 4 L nasal cannula. Head CT and chest x-ray showed no acute processes. Urinalysis was done in the ED, which was positive for occult blood in the urine, large leukocyte esterase, and high urine protein and a white blood cell count of 11.3. He currently does not meet sepsis criteria but will be admitted due to altered mental status in the setting of a urinary tract infection with indwelling urethral catheter, acute kidney injury superimposed on chronic kidney disease. He was started on fluids as he has acute renal injury on a baseline of chronic insufficiency. His creatinine is improved to some degree today but still over 5. However, he is making urine as he has an indwelling catheter. He woke up and answered some questions today but reported erroneously that he is currently on dialysis. He can answer simple straightforward questions at this time which is a definite improvement over his admission. he may be a bit uremic still but hopefully he will continue to improve Of note: CODE STATUS, past medical history, surgical history, medications, allergies, and further history could not be elicited from patient due to unresponsiveness. DS: Diagnosis - Discharge Diagnosis (1) Urinary tract infection associated with indwelling urethral catheter Status: Acute (2) Acute kidney injury superimposed on chronic kidney disease Status: Acute (3) Hypertension Status: Acute (4) Diabetes Status: Acute (5) Gout Status: Acute (6) Depression Status: Acute (7) Nutrition, metabolism, and development symptoms Status: Acute DS: Summary Hospital Course: Patient admitted 01/24/18 for altered mental status. Found to have UTI with Pseudomonas. Patient had initially been started on imipenem due to allergies. During hospital stay patient's altered mental status improved. Sensitivities were performed. Due to patient's multiple antibiotic allergies Azactam was recommended by infectious disease. Midline was placed and patient was discharged home to complete a course of Azactam. - Time Spent with Patient Total time spent providing and/or coordinating discharge services: Greater than 30 minutes Results Procedures completed during hospitalization: Midline 01/30 - Impressions ITS Impressions Abdomen/Pelvis CT 01/24/18 00:00 CONCLUSION: 1. There is hydronephrosis in both kidneys with hydroureter without definite stones not significantly changed since the prior examination and there are gas filled inside the bladder present on the prior examination of uncertain etiology. If the patient has not had instrumentation, possibility of infectious process or colovesical fistula is not excluded. 2. There is soft tissue density adjacent to descending aorta which is densely calcified not present on the prior exam. It could potentially be mass or adenopathy, however possibility of contained hemorrhage at this site should be entertained and not adequately characterized. May consider further characterization with CT angiogram of aorta. Chest X-Ray 01/24/18 09:42 CONCLUSION: Underinflated examination with atelectasis at the lung bases. Otherwise, stable examination. Head CT 01/24/18 09:42 CONCLUSION: 1. Stable noncontrast head CT. No acute intracranial abnormality is identified. 2. Stable chronic findings include generalized atrophy and mild periventricular white matter low-attenuation characteristic of chronic microvascular ischemia. Discharge Plan - Discharge Disposition Patient Disposition: 04 [facility] - Discharge Condition Condition: Stable - Discharge Order Discharge Orders: Discharge Order (Routine); Ordered 01/31/18 Ordered By: Lee Bejarano - Discharge Details Anticipated Discharge Date: 01/31/18 - Physicians Team Primary Care Provider: UNKNOWN, Attending Provider: Feliz De La Garza Other Providers: Curt Bal MD ; Jenna Dockery ; Joyce Bermeo MD
== END 2018-01-31 19:05 ==
LOC: NEPE 09:03 → NEDA 12:06 → N05 15:20
PROVIDERS: ADMIT Family Medicine; ATTEND Family Medicine